=== PATIENT | female | born 1945 | race Caucasian/White ===

== ENCOUNTER 2016-06-24 09:33 | Emergency (ER) | payer MEDICARE ==
[2016-06-24] MEDS ORDERED: Ibuprofen 600 MG Tab PO ONE (10:05)
--- NOTE | 2016-06-24 10:05 | EDM.PDOC ---
ED HPI Trauma - General Chief Complaint: Lower Extremity Injury/Pain Stated Complaint: R. FOOT TOE PAIN & SHOULDER PAIN Time Seen by Provider: 06/24/16 09:33 Source: Reports: Patient, Family History Limitations: Reports: No limitations - History of Present Illness INITIAL COMMENTS - FREE TEXT/NARRATIVE: 70 y.o.w.sonu came to the ed after she fell over her dog and injured her r foot and r shoulder. No LOC, no other acute medical issues at this time. Symptom Onset Date: 06/24/16 Symptom Onset Time: 08:00 Occurred When: just prior to arrival Occurred Where: home Method of Injury: other (fell over her dog) Severity: mild Pain/Injury Location: Reports: upper extremity, right, lower extremity, right Consciousness: Reports: no loss of consciousness Associated Symptoms: Reports: denies other symptoms Allergies/ADRs: Allergies erythromycin base [Erythromycin Base] Allergy (Verified 06/24/16 09:52) Hives Penicillins Allergy (Verified 06/24/16 09:52) Hives Sulfa (Sulfonamide Antibiotics) Allergy (Verified 06/24/16 09:52) Hives Tetracyclines Allergy (Verified 06/24/16 09:52) Hives Home Medications: Ambulatory Orders Lisinopril [Prinivil] 40 mg PO DAILY 01/02/14 [Confirmed 06/24/16] Multivitamin [Multivitamins] 1 each PO DAILY 04/11/15 [Confirmed 06/24/16] Temazepam [Restoril] 30 mg PO BEDTIME 06/24/16 [Confirmed 06/24/16] traMADol [Ultram] 50 mg PO Q4H PRN #20 tab 06/24/16 Past Medical History HEENT History: Reports: Hard of hearing Cardiovascular History: Reports: Heart Failure, Hypertension Other Cardiovascular History: IRREGULAR HEART RYTHM Psychiatric History: Reports: Other (see below) Other Psychiatric History: INSOMIA - Past Surgical History HEENT Surgical History: Reports: Oral surgery GI Surgical History: Reports: Appendectomy, Bariatric procedure, Cholecystectomy Female Surgical History: Reports: Hysterectomy Musculoskeletal Surgical History: Reports: Other (see below) Other Musculoskeletal Surgeries/Procedures:: ROTATOR CUFF SX Social & Family History - Family History Family Medical History: Noncontributory - Tobacco Use Smoking Status *Q: Former Smoker Years of Tobacco use: 0 Used Tobacco, but Quit: No Second Hand Smoke Exposure: Yes - Alcohol Use Days Per Week of Alcohol Use: 0 - Recreational Drug Use Recreational Drug Use: No Review of Systems - Review of Systems Review Of Systems: See Below Constitutional: Reports: no symptoms Eyes: Reports: no symptoms Ears: Reports: no symptoms Nose: Reports: no symptoms Mouth/Throat: Reports: no symptoms Respiratory: Reports: No Symptoms Cardiovascular: Reports: no symptoms GI/Abdominal: Reports: No symptoms Genitourinary: Reports: no symptoms Musculoskeletal: Reports: foot pain Skin: Reports: no symptoms Neurological: Reports: No Symptoms Psychiatric: Reports: no symptoms Trauma Exam - Physical Exam Exam: See Below Exam Limited By: No limitations General Appearance: Reports: alert, WD/WN, mild distress Head: Reports: atraumatic, normocephalic Ears: Reports: normal external exam, normal canal Nose: Reports: normal inspection, normal mucousa Throat/Mouth: Reports: Normal inspection, Normal lips, Normal oropharynx Neck: Reports: non-tender, full range of motion, normal alignment, normal inspection Respiratory Exam: Reports: no respiratory distress, lungs clear, normal breath sounds, no accessory muscle use, chest non-tender Cardiovascular: Reports: normal peripheral pulses, regular rate, rhythm, no edema GI/Abdominal: Reports: normal bowel sounds, soft, non tender, no organomegaly (Female) Exam: Deferred Rectal (Female) Exam: Deferred Back: Reports: full range of motion Extremities: Reports: tenderness (r big toe with deformity and SQ hematoma) Neurologic: Reports: 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 No LOC, no other acute medical issues at this time. PE: swollwn left big toe with hematoma. R Shoulder FROM Imaging: Proximal phalangeal fx r big toe (chip fx). R Shoulder NAD Impression: R toes fx Tx: Ultarm, walking boot r foot Reexam: Improved Plan: D/C with instruction Last Recorded V/S: Last Vital Signs Temp 36.6 C 06/24/16 10:30 Pulse 76 06/24/16 10:30 Resp 16 06/24/16 10:30 BP 138/74 06/24/16 10:30 Pulse Ox 98 06/24/16 10:30 - Orders/Labs/Meds Orders: Active Orders 24 hr Category Date Time Status Foot Comp Min 3V Rt [CR] Stat Exams 06/24/16 09:48 Taken Shoulder Comp Rt [CR] Stat Exams 06/24/16 10:00 Taken Meds: Medications Discontinued Medications Generic Name Dose Route Start Last Admin Trade Name Freq PRN Reason Stop Dose Admin Ibuprofen 600 mg 06/24/16 10:05 06/24/16 10:15 Motrin PO 06/24/16 10:06 Not Given ONETIME ONE Tramadol HCl 100 mg 06/24/16 10:23 06/24/16 10:34 Ultram PO 06/24/16 10:24 100 mg ONETIME ONE Administration Departure - Departure Time of Disposition: 10:19 Disposition: Home, Self-Care 01 Condition: good Clinical Impression: Fracture of toe of right foot Qualifiers: Encounter type: initial encounter Toe: great toe Fracture type: closed Phalanx : proximal Fracture alignment: displaced Qualified Code(s): S92.411A - Displaced fracture of proximal phalanx of right great toe, initial encounter for closed fracture Shoulder pain, right Qualifiers: Chronicity: chronic Qualified Code(s): M25.511 - Pain in right shoulder Prescriptions: traMADol [Ultram] 50 mg PO Q4H PRN #20 tab PRN Reason: Pain Instructions: Toe Fracture, [id number] Referrals: Mir Johnson MD [Primary Care Provider] - Casa Reardon MD [Physician] - Forms: ED Department Discharge Additional Instructions: Please elevate r foot, please wear boot as recommended, please f/u with ortho in the next 3-4 days, Please come back to the ed if your symptoms get worse acutely. - My Orders Last 24 Hours: My Active Orders 06/24/16 09:48 Foot Comp Min 3V Rt [CR] Stat 06/24/16 10:00 Shoulder Comp Rt [CR] Stat - Assessment/Plan Last 24 Hours: My Active Orders 06/24/16 09:48 Foot Comp Min 3V Rt [CR] Stat 06/24/16 10:00 Shoulder Comp Rt [CR] Stat
[2016-06-24] MEDS ORDERED: traMADol 50 MG Tab PO ONE (10:23)
[2016-06-24 11:12] VITALS: BP 138/74
--- NOTE | 2016-06-25 09:53 | CR ---
INDICATION: Trauma first digit - first metatarsal area. Tripped over dog. RIGHT FOOT: Three views of the right foot were obtained and revealed severe diminished bone density suggesting severe osteoporosis or possibly osteomalacia - correlate clinically. There is an area of irregularity of the cortex of the proximal metaphysis of the proximal phalanx of the great toe medially which could represent an essentially undisplaced fracture site that is partial cortical. No other acute bone or joint abnormality was identified. Moderate sized plantar calcaneal spur is noted. IMPRESSION: 1. Possible partial cortical fracture base of the great toe medially. 2. Osteomalacia or osteoporosis - correlate clinically. 3. Heel spur. MTDD
--- NOTE | 2016-06-25 10:27 | CR ---
INDICATION: Trauma, tripped over dog. RIGHT SHOULDER: Three views of the right shoulder were obtained and revealed no evidence of an acute fracture or dislocation. There appears to be some sclerosis on the undersurface of the acromion, suggesting a mild degree of impingement. This should be correlated clinically. Mild degenerative changes are noted at the AC and glenohumeral joints. There may be some separation of the AC joint or possibly resorption of bone at the distal clavicle. This can be seen with old injuries. Osteonecrosis is a possibility post-traumatic. Diminished bone density is noted compatible with osteoporosis or osteomalacia - correlate clinically. IMPRESSION: 1. No definite acute fracture or dislocation. 2. 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 This is most likely on the basis of previous trauma with resorption of some of the bone of the distal clavicle. 3. Diminished bone density suggesting osteomalacia or osteoporosis - correlate clinically. 4. Mild osteoarthritis glenohumeral joint with the joint space fairly well preserved. MTDD
== END 2016-06-24 10:50 | disposition home or self-care (01) ==
LOC: FB.ED 09:33
DX: S92.411A Displaced fracture of proximal phalanx of right great toe, initial encounter for closed fracture (principal); W01.0XXA Fall on same level from slipping, tripping and stumbling without subsequent striking against object, initial encounter; Y92.9 Unspecified place or not applicable; M77.51 Other enthesopathy of right foot and ankle; M25.511 Pain in right shoulder; G89.29 Other chronic pain; I50.9 Heart failure, unspecified; I10 Essential (primary) hypertension; Z98.84 Bariatric surgery status; Z79.899 Other long term (current) drug therapy; Z88.1 Allergy status to other antibiotic agents; Z88.0 Allergy status to penicillin; Z88.2 Allergy status to sulfonamides; Z88.8 Allergy status to other drugs, medicaments and biological substances; Z87.891 Personal history of nicotine dependence
CPT/HCPCS: 29515; 73030; 73630; 99283; A9270

== ENCOUNTER 2016-07-23 09:50 | Inpatient (IN) | payer MEDICARE ==
[2016-07-23] MEDS: Acetaminophen/HYDROcodone 325-5 MG Tab PO PRN ×3 (14:03→22:30)
[2016-07-23] MEDS: Gabapentin 100 MG Cap PO SCH ×2 (14:03→21:20)
--- NOTE | 2016-07-23 17:48 | PCM.HP ---
H&P History of Present Illness - General Date of Service: 07/23/16 Admit Problem/Dx: Admission Diagnosis/Problem Admission Diagnosis/Problem Disorder of shoulder Source of Information: Patient History Limitations: Reports: No limitations - History of Present Illness Initial Comments - Free Text/Narative: This is a 70-year-old female patient became from [place] after having a total right shoulder replacement. She's having pain that is controlled by hydrocodone. She has no other concerns today. She's had 2 previous rotator cuff repair surgeries on the right shoulder. She has a scooter and is not able to manipulate the joystick because of the brace. So she came to do rehabilitation as having been here. She denies fevers, chills, shortness of breath, chest pain, leg swelling. She stated she had a good BM before she left the hospital in [place]. Right Upper Arm Pain Score (Numeric/FACES): 5 - Related Data Allergies/Adverse Reactions: Allergies Allergy/AdvReac Type Severity Reaction Status Date / Time erythromycin base Allergy Hives Verified 06/24/16 09:52 [Erythromycin Base] Penicillins Allergy Hives Verified 06/24/16 09:52 Sulfa (Sulfonamide Allergy Hives Verified 06/24/16 09:52 Antibiotics) Tetracyclines Allergy Hives Verified 06/24/16 09:52 Home Medications: Home Meds Temazepam [Restoril] 30 mg PO BEDTIME 06/24/16 [History] Acetaminophen/HYDROcodone [[place] 325-5 MG] 2 tab PO Q4H PRN 07/23/16 [History] Alendronate [Fosamax] 70 mg PO Q7D 07/23/16 [History] Aspirin [Ecotrin] 325 mg PO DAILY 07/23/16 [History] Gabapentin [Neurontin] 200 mg PO TID 07/23/16 [History] Hydrocodone/Acetaminophen [[place] 5-325] 1 tab PO Q4H PRN 07/23/16 [History] Lisinopril 20 mg PO DAILY 07/23/16 [History] Multivitamin [Daily Multiple Vitamin] 1 tab PO DAILY 07/23/16 [History] Sennosides/Docusate Sodium [Senna-S] 1 tab PO BID 07/23/16 [History] traMADol [Ultram] 50 mg PO Q6H PRN MDD 150MG 07/23/16 [History] Past Medical History HEENT History: Reports: Hard of hearing, Impaired vision Cardiovascular History: Reports: Heart Failure, Hypertension Other Cardiovascular History: IRREGULAR HEART RYTHM 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: Neurological History: Reports: Neuropathy, peripheral Psychiatric History: Reports: Other (see below) Other Psychiatric History: INSOMIA Endocrine/Metabolic History: Reports: Obesity/BMI 30+, Osteoporosis - Infectious Disease History Infectious Disease History: Reports: Chicken pox - Past Surgical History Head Surgeries/Procedures: Reports: None HEENT Surgical History: Reports: Oral surgery GI Surgical History: Reports: Appendectomy, Bariatric procedure, Cholecystectomy Female Surgical History: Reports: Hysterectomy Endocrine Surgical History: Reports: None Neurological Surgical History: Reports: None Musculoskeletal Surgical History: Reports: Other (see below) Other Musculoskeletal Surgeries/Procedures:: ROTATOR CUFF SX Social & Family History - Family History Family Medical History: Noncontributory - Tobacco Use Smoking Status *Q: Never Smoker Years of Tobacco use: 0 Used Tobacco, but Quit: No Second Hand Smoke Exposure: No - Caffeine Use Caffeine Use: Reports: None - Alcohol Use Days Per Week of Alcohol Use: 0 - Recreational Drug Use Recreational Drug Use: No H&P Review of Systems - Review of Systems: Review Of Systems: See Below General: Reports: no symptoms, weight gain HEENT: Reports: no symptoms Pulmonary: Reports: No Symptoms Cardiovascular: Reports: no symptoms Gastrointestinal: Reports: No symptoms Genitourinary: Reports: no symptoms Musculoskeletal: Reports: other (See history of present illness) Psychiatric: Reports: no symptoms Neurological: Reports: No Symptoms Hematologic/Lymphatic: Reports: no symptoms Immunologic: Reports: no symptoms Exam - Exam Exam: See Below - Vital Signs Vital Signs: Last Vital Signs Temp 98.3 F 07/23/16 12:09 Pulse 53 L 07/23/16 12:09 Resp 16 07/23/16 12:09 BP 105/48 L 07/23/16 12:09 Pulse Ox 95 07/23/16 12:10 Weight: 225 lb - Exam General: alert, oriented, cooperative HEENT: PERRLA, EACs clear, EOMI, Hearing intact, Mucosa moist & pink, Posterior pharynx clear, TMs clear Neck: supple, trachea midline. No: carotid bruit Lungs: Clear to auscultation, Normal respiratory effort. No: Crackles, Rales, Rhonchi Cardiovascular: regular rate, regular rhythm, systolic murmur Abdomen: soft. No: guarding, rigidity, rebound, tenderness Back Exam: normal inspection Extremities: other (Right arm is in a sling.) Skin: warm, dry, intact, incision (Excision right shoulder without erythema or drainage.) Neuro Extensive - Mental Status: alert, oriented x3, normal mood/affect, normal cognition Psychiatric: alert, normal affect, normal mood *Q Meaningful Use (ADM) - VTE *Q VTE Criteria *Q: - Stroke *Q Stroke Criteria *Q: - AMI *Q AMI Criteria *Q: - Problem List (1) Status post reverse arthroplasty of right shoulder SNOMED Code(s): 665991230, [id number] ICD Code: Z96.611 - PRESENCE OF RIGHT ARTIFICIAL SHOULDER JOINT Status: Acute Current Visit: Yes Problem List Initiated/Reviewed/Updated: Yes Orders Last 24hrs: Active Orders 24 hr Category Date Time Status Patient Status [ADT] Routine ADT 07/23/16 12:11 Active May Shower [RC] ASDIRECTED Care 07/23/16 12:11 Active Oxygen Therapy [RC] PRN Care 07/23/16 12:10 Active Up With Assistance [RC] ASDIRECTED Care 07/23/16 12:11 Active Vital Signs [RC] DAILY Care 07/23/16 12:10 Active Weight [Height and Weight] [RC] .qMon Care 07/23/16 15:13 Active Consult to Employee Relations Representative [CONS] Routine Cons 07/23/16 12:10 Active OT Evaluation and Treatment [CONS] Routine Cons 07/23/16 12:10 Active PT Evaluation and Treatment [CONS] Routine Cons 07/23/16 12:10 Active Regular Diet [DIET] Diet 07/23/16 Lunch Active Acetaminophen/HYDROcodone [[place] 325-5 MG] Med 07/23/16 13:51 Active 1 tab PO Q4H PRN Acetaminophen/HYDROcodone [[place] 325-5 MG] Med 07/23/16 13:51 Active 2 tab PO Q4H PRN Alendronate [Fosamax] Med 07/24/16 06:00 Active 70 mg PO Q7D Aspirin [Ecotrin] Med 07/24/16 09:00 Active 325 mg PO DAILY Docusate Sodium/Sennosides [Senna Plus] Med 07/23/16 21:00 Active 1 tab PO BID Gabapentin [Neurontin] Med 07/23/16 14:00 Active 200 mg PO TID Lisinopril [Prinivil] Med 07/24/16 09:00 Active 20 mg PO DAILY Multivitamins [Tab-A-Ursula] Med 07/24/16 09:00 Active 1 tab PO DAILY Temazepam [Restoril] Med 07/23/16 21:00 Active 30 mg PO BEDTIME traMADol [Ultram] Med 07/23/16 13:51 Active 50 mg PO Q6H PRN Ice Therapy [OM.PC] Routine Oth 07/23/16 12:11 Ordered Resuscitation Status Routine Resus Stat 07/23/16 12:10 Ordered Medication Orders Hydrocodone Bitart/Acetaminophen ([place] 325-5 Mg) 2 tab PO Q4H PRN PRN Reason: PAIN >5/10 Last Admin: 07/23/16 14:03 Dose: 2 tab Hydrocodone Bitart/Acetaminophen ([place] 325-5 Mg) 1 tab PO Q4H PRN PRN Reason: PAIN 3-5/10 Alendronate Sodium (Fosamax) 70 mg PO Q7D [facility] Aspirin (Ecotrin) 325 mg PO DAILY ED Gabapentin (Neurontin) 200 mg PO TID [facility] Last Admin: 07/23/16 14:03 Dose: 200 mg Lisinopril (Prinivil) 20 mg PO DAILY [facility] Multivitamins/Minerals/Vitamin C (Tab-A-Ursula) 1 tab PO DAILY ED Senna/Docusate Sodium (Senna Plus) 1 tab PO BID ED Temazepam (Restoril) 30 mg PO BEDTIME ED Tramadol HCl (Ultram) 50 mg PO Q6H PRN PRN Reason: Pain Assessment/Plan Comment:: 1. Admit to swing bed for PT/OT. 2. Regular diet without IV fluids. 3. Hydrocodone or Tylenol for pain. 4. Continue her home medications.
[2016-07-23] MEDS: Temazepam 15 MG Cap PO SCH (21:20)
[2016-07-24] MEDS: Acetaminophen/HYDROcodone 325-5 MG Tab PO PRN ×5 (02:39→20:39)
[2016-07-24] MEDS ORDERED: Alendronate 70 MG Tab PO SCH (06:00)
[2016-07-24] MEDS: Gabapentin 100 MG Cap PO SCH ×3 (09:31→20:38)
[2016-07-24] MEDS: Aspirin 325 MG Tab.EC PO SCH (09:31)
[2016-07-24] MEDS: Multivitamin Tab PO SCH (09:31)
[2016-07-24] MEDS: Lisinopril 20 MG Tab PO SCH (09:31)
[2016-07-24] MEDS: Temazepam 15 MG Cap PO SCH (22:21)
[2016-07-25] MEDS: Acetaminophen/HYDROcodone 325-5 MG Tab PO PRN ×6 (01:44→22:55)
[2016-07-25] MEDS: Gabapentin 100 MG Cap PO SCH ×3 (08:16→20:29)
[2016-07-25] MEDS: Aspirin 325 MG Tab.EC PO SCH (08:16)
[2016-07-25] MEDS: Lisinopril 20 MG Tab PO SCH (08:16)
[2016-07-25] MEDS: Multivitamin Tab PO SCH (08:17)
--- NOTE | 2016-07-25 08:40 | PCM.PN ---
- General Info Date of Service: 07/25/16 Admission Dx/Problem (Free Text): Patient states she continues to have right shoulder pain. Pain meds are helping. She has no other concerns today. She denies any fevers or chills, chest pain or shortness of breath. - Patient Data Vitals - most recent: Last Vital Signs Temp 98.6 F 07/24/16 08:00 Pulse 60 07/24/16 08:00 Resp 16 07/24/16 08:00 BP 115/57 L 07/25/16 08:16 Pulse Ox 98 07/24/16 08:00 Weight - most recent: 225 lb I&O - last 24 hours: Intake & Output 07/24/16 07/25/16 07/25/16 22:59 06:59 14:59 Intake Total 200 Balance 200 Med Orders - Current: Current Medications Hydrocodone Bitart/Acetaminophen ([place] 325-5 Mg) 2 tab PO Q4H PRN PRN Reason: PAIN >5/10 Last Admin: 07/25/16 05:48 Dose: 2 tab Hydrocodone Bitart/Acetaminophen ([place] 325-5 Mg) 1 tab PO Q4H PRN PRN Reason: PAIN 3-5/10 Alendronate Sodium (Fosamax) 70 mg PO Q7D [facility] Last Admin: 07/24/16 06:22 Dose: 70 mg Aspirin (Ecotrin) 325 mg PO DAILY [facility] Last Admin: 07/25/16 08:16 Dose: 325 mg Gabapentin (Neurontin) 200 mg PO TID [facility] Last Admin: 07/25/16 08:16 Dose: 200 mg Lisinopril (Prinivil) 20 mg PO DAILY [facility] Last Admin: 07/25/16 08:16 Dose: 20 mg Multivitamins/Minerals/Vitamin C (Tab-A-Ursula) 1 tab PO DAILY [facility] Last Admin: 07/25/16 08:17 Dose: 1 tab Senna/Docusate Sodium (Senna Plus) 1 tab PO BID [facility] Last Admin: 07/25/16 08:16 Dose: 1 tab Temazepam (Restoril) 30 mg PO BEDTIME [facility] Last Admin: 07/24/16 22:21 Dose: 30 mg Tramadol HCl (Ultram) 50 mg PO Q6H PRN PRN Reason: Pain - Exam General: alert, oriented, cooperative Lungs: Clear to auscultation, Normal respiratory effort Cardiovascular: Regular Rate, Regular Rhythm, No Murmurs Extremities: other (Right arm in a sling.) - Problem List & Annotations (1) Status post reverse arthroplasty of right shoulder SNOMED Code(s): 040392063, 400649602 Code(s): Z96.611 - PRESENCE OF RIGHT ARTIFICIAL SHOULDER JOINT Status: Acute Current Visit: Yes - Problem List Review Problem List Initiated/Reviewed/Updated: Yes - My Orders Last 24 Hours: My Active Orders 07/24/16 09:00 Aspirin [Ecotrin] 325 mg PO DAILY Lisinopril [Prinivil] 20 mg PO DAILY Multivitamins [Tab-A-Ursula] 1 tab PO DAILY - Plan Plan:: 1. PT/OT and continue current care with a controlled hydrocodone.
[2016-07-25] MEDS: Temazepam 15 MG Cap PO SCH (20:28)
[2016-07-26] MEDS: Acetaminophen/HYDROcodone 325-5 MG Tab PO PRN ×5 (03:29→20:33)
[2016-07-26] MEDS: Aspirin 325 MG Tab.EC PO SCH (08:56)
[2016-07-26] MEDS: Lisinopril 20 MG Tab PO SCH (08:57)
[2016-07-26] MEDS: Gabapentin 100 MG Cap PO SCH ×3 (08:57→20:35)
[2016-07-26] MEDS: Multivitamin Tab PO SCH (08:57)
[2016-07-26] MEDS: Temazepam 15 MG Cap PO SCH (22:42)
[2016-07-27] MEDS: Acetaminophen/HYDROcodone 325-5 MG Tab PO PRN ×5 (03:05→20:26)
[2016-07-27] MEDS: Gabapentin 100 MG Cap PO SCH ×3 (08:08→20:29)
[2016-07-27] MEDS: Multivitamin Tab PO SCH (08:08)
[2016-07-27] MEDS: Lisinopril 20 MG Tab PO SCH (08:08)
[2016-07-27] MEDS: Aspirin 325 MG Tab.EC PO SCH (08:08)
[2016-07-27] MEDS: Temazepam 15 MG Cap PO SCH (21:57)
[2016-07-27] MEDS: traMADol 50 MG Tab PO PRN (21:57)
[2016-07-28] MEDS: Acetaminophen/HYDROcodone 325-5 MG Tab PO PRN ×5 (00:30→20:57)
[2016-07-28] MEDS: traMADol 50 MG Tab PO PRN ×2 (07:43→17:30)
[2016-07-28] MEDS: Lisinopril 20 MG Tab PO SCH (08:48)
[2016-07-28] MEDS: Aspirin 325 MG Tab.EC PO SCH (08:48)
[2016-07-28] MEDS: Gabapentin 100 MG Cap PO SCH ×3 (08:48→20:54)
[2016-07-28] MEDS: Multivitamin Tab PO SCH (08:49)
[2016-07-28] MEDS: Temazepam 15 MG Cap PO SCH (22:07)
[2016-07-29] MEDS: traMADol 50 MG Tab PO PRN ×3 (00:20→13:37)
[2016-07-29] MEDS: Acetaminophen/HYDROcodone 325-5 MG Tab PO PRN ×4 (02:36→21:33)
[2016-07-29] MEDS: Gabapentin 100 MG Cap PO SCH ×3 (08:59→21:34)
[2016-07-29] MEDS: Multivitamin Tab PO SCH (08:59)
[2016-07-29] MEDS: Aspirin 325 MG Tab.EC PO SCH (09:00)
[2016-07-29] MEDS: Lisinopril 20 MG Tab PO SCH (09:00)
--- NOTE | 2016-07-29 09:19 | PCM.PN ---
- General Info Date of Service: 07/29/16 Admission Dx/Problem (Free Text): Patient's issues of pain in her right shoulder. She's tolerating the hydrocodone once a day. She states she's had diarrhea ever since she's been here. She states she was at least given one dose of clindamycin in the hospital. She only has the diarrhea when she eats. No blood. No nausea, vomiting or fevers. No abdominal pain - Patient Data Vitals - most recent: Last Vital Signs Temp 97.1 F 07/29/16 08:00 Pulse 61 07/29/16 08:00 Resp 18 07/29/16 08:00 BP 129/72 07/29/16 09:00 Pulse Ox 97 07/29/16 08:00 Weight - most recent: 235 lb 6.4 oz Med Orders - Current: Current Medications Hydrocodone Bitart/Acetaminophen ([place] 325-5 Mg) 1 tab PO Q4H PRN PRN Reason: PAIN Last Admin: 07/29/16 09:10 Dose: 1 tab Alendronate Sodium (Fosamax) 70 mg PO Q7D [facility] Last Admin: 07/24/16 06:22 Dose: 70 mg Aspirin (Ecotrin) 325 mg PO DAILY [facility] Last Admin: 07/29/16 09:00 Dose: 325 mg Gabapentin (Neurontin) 200 mg PO TID [facility] Last Admin: 07/29/16 08:59 Dose: 200 mg Lisinopril (Prinivil) 20 mg PO DAILY [facility] Last Admin: 07/29/16 09:00 Dose: 20 mg Multivitamins/Minerals/Vitamin C (Tab-A-Ursula) 1 tab PO DAILY [facility] Last Admin: 07/29/16 08:59 Dose: 1 tab Temazepam (Restoril) 30 mg PO BEDTIME [facility] Last Admin: 07/28/16 22:07 Dose: 30 mg Tramadol HCl (Ultram) 50 mg PO Q6H PRN PRN Reason: Pain Last Admin: 07/29/16 06:31 Dose: 50 mg Discontinued Medications Hydrocodone Bitart/Acetaminophen ([place] 325-5 Mg) 2 tab PO Q4H PRN PRN Reason: PAIN >5/10 Last Admin: 07/28/16 09:45 Dose: 2 tab Senna/Docusate Sodium (Senna Plus) 1 tab PO BID [facility] Last Admin: 07/25/16 22:58 Dose: Not Given - Exam General: alert, cooperative Neck: supple Lungs: Clear to auscultation, Normal respiratory effort Cardiovascular: Regular Rate, Regular Rhythm, No Murmurs Abdomen: bowel sounds present, soft, no tenderness, no distension Wound/Incisions: healing well - Problem List & Annotations (1) Status post reverse arthroplasty of right shoulder SNOMED Code(s): 823001236, [id number] Code(s): Z96.611 - PRESENCE OF RIGHT ARTIFICIAL SHOULDER JOINT Status: Acute Current Visit: Yes (2) Diarrhea SNOMED Code(s): 38364082 Code(s): R19.7 - DIARRHEA, UNSPECIFIED Status: Acute Current Visit: Yes - Problem List Review Problem List Initiated/Reviewed/Updated: Yes - Plan Plan:: 1. discharge tomorrow on outpatient occupational therapy with a buffet attendant. 2. C. difficile.
--- NOTE | 2016-07-29 09:27 | PCM.DCSUM1 ---
Discharge Summary - Hospital Course Free Text/Narrative:: Hospital course-patient was brought to [facility] for rehabilitation. Her right arm is in a sling and she worked with occupational therapy. She initially was on 2-5/325 hydrocodone every 4 hours. We decreased her 1 every 4 hours. Her pain was tolerable. She had diarrheal issues here and a C. difficile was checked but is pending. She states she had at least one dose of clindamycin in [place]. She'll be discharged and follow up with orthopedic PA in 1 week in the orthopedic surgeon in one month. She will go home with a dishroom attendant from [facility]. Brief History: This is a 70-year-old female patient became from [place] after having a total right shoulder replacement. She's having pain that is controlled by hydrocodone. She has no other concerns today. She's had 2 previous rotator cuff repair surgeries on the right shoulder. She has a scooter and is not able to manipulate the joystick because of the brace. So she came to do rehabilitation as having been here. She denies fevers, chills, shortness of breath, chest pain, leg swelling. She stated she had a good BM before she left the hospital in [place]. - Discharge Data Discharge Date: 07/30/16 Discharge Disposition: Home, [facility] 06 Condition: Good - Discharge Diagnosis/Problem(s) (1) Status post reverse arthroplasty of right shoulder SNOMED Code(s): 939463661, [id number] ICD Code: Z96.611 - PRESENCE OF RIGHT ARTIFICIAL SHOULDER JOINT Status: Acute Current Visit: Yes (2) Diarrhea SNOMED Code(s): 70648003 ICD Code: R19.7 - DIARRHEA, UNSPECIFIED Status: Acute Current Visit: Yes - Patient Summary/Data Consults: Consultations 07/23/16 12:10 Consult to Obstetrics Gyn Physician [CONS] Routine Comment: Physician Instructions: Reason for Consult: discharge planning OT Evaluation and Treatment [CONS] Routine Please Evaluate and Treat. OT Reason for Consult: Strengthening This query below is only for informational purposes and is not editable. PT Evaluation and Treatment [CONS] Routine Please Evaluate and Treat. PT Reason for Consult: Strengthening This query below is only for informational purposes and is not editable. - Patient Instructions Diet: Regular Diet as Tolerated Activity: As Tolerated Driving: Do Not Drive Showering/Bathing: July Shower Notify Provider of: Fever, Increased Pain, Swelling and Redness, Nausea and/or Vomiting Other/Special Instructions: 1. recheck orthopedics in one week and in August. 2. Outpatient occupational therapy. 3. Home health dishroom attendant. For homemaking and bathing. Patient is in the right arm sling and also uses her wheelchair. She needs this assistance to get her some clean and to get her house clean because she's unable to do it at this time. - Discharge Plan Home Medications: Home Meds Temazepam [Restoril] 30 mg PO BEDTIME 06/24/16 [History] Alendronate [Fosamax] 70 mg PO Q7D 07/23/16 [History] Aspirin [Ecotrin] 325 mg PO DAILY 07/23/16 [History] Gabapentin [Neurontin] 200 mg PO TID 07/23/16 [History] Hydrocodone/Acetaminophen [Prentice 5-325] 1 tab PO Q4H PRN 07/23/16 [History] Lisinopril 20 mg PO DAILY 07/23/16 [History] Multivitamin [Daily Multiple Vitamin] 1 tab PO DAILY 07/23/16 [History] Sennosides/Docusate Sodium [Senna-S] 1 tab PO BID 07/23/16 [History] - Discharge Summary/Plan Comment DC Time >30 min.: Yes - Patient Data Vitals - Most Recent: Last Vital Signs Temp 97.1 F 07/29/16 08:00 Pulse 61 07/29/16 08:00 Resp 18 07/29/16 08:00 BP 129/72 07/29/16 09:00 Pulse Ox 97 07/29/16 08:00 Weight - Most Recent: 235 lb 6.4 oz Med Orders - Current: Current Medications Hydrocodone Bitart/Acetaminophen (Prentice 325-5 Mg) 1 tab PO Q4H PRN PRN Reason: PAIN Last Admin: 07/29/16 09:10 Dose: 1 tab Alendronate Sodium (Fosamax) 70 mg PO Q7D [facility] Last Admin: 07/24/16 06:22 Dose: 70 mg Aspirin (Ecotrin) 325 mg PO DAILY [facility] Last Admin: 07/29/16 09:00 Dose: 325 mg Gabapentin (Neurontin) 200 mg PO TID [facility] Last Admin: 07/29/16 08:59 Dose: 200 mg Lisinopril (Prinivil) 20 mg PO DAILY [facility] Last Admin: 07/29/16 09:00 Dose: 20 mg Multivitamins/Minerals/Vitamin C (Tab-A-Ursula) 1 tab PO DAILY [facility] Last Admin: 07/29/16 08:59 Dose: 1 tab Temazepam (Restoril) 30 mg PO BEDTIME [facility] Last Admin: 07/28/16 22:07 Dose: 30 mg Tramadol HCl (Ultram) 50 mg PO Q6H PRN PRN Reason: Pain Last Admin: 07/29/16 06:31 Dose: 50 mg Discontinued Medications Hydrocodone Bitart/Acetaminophen (Prentice 325-5 Mg) 2 tab PO Q4H PRN PRN Reason: PAIN >5/10 Last Admin: 07/28/16 09:45 Dose: 2 tab Senna/Docusate Sodium (Senna Plus) 1 tab PO BID [facility] Last Admin: 07/25/16 22:58 Dose: Not Given *Q Meaningful Use (DIS) - VTE *Q VTE Criteria *Q: - Stroke *Q Stroke Criteria *Q: - AMI *Q AMI Criteria *Q:
[2016-07-29] MEDS: Temazepam 15 MG Cap PO SCH (22:50)
[2016-07-30] MEDS: Acetaminophen/HYDROcodone 325-5 MG Tab PO PRN ×2 (02:32→06:53)
[2016-07-30] MEDS: Multivitamin Tab PO SCH (09:29)
[2016-07-30] MEDS: Gabapentin 100 MG Cap PO SCH (09:29)
[2016-07-30] MEDS: traMADol 50 MG Tab PO PRN (09:29)
[2016-07-30] MEDS: Aspirin 325 MG Tab.EC PO SCH (09:29)
[2016-07-30] MEDS: Lisinopril 20 MG Tab PO SCH (09:30)
[2016-07-30 10:17] VITALS: BP 142/66
== END 2016-07-30 09:45 | disposition home health service (06) | DRG 561 ==
LOC: FB.MS 11:26
PROVIDERS: ADMIT Family Medicine; ATTEND Family Medicine
DX: Z47.1 Aftercare following joint replacement surgery (principal); Z96.611 Presence of right artificial shoulder joint; R19.7 Diarrhea, unspecified; I11.0 Hypertensive heart disease with heart failure; I50.9 Heart failure, unspecified; G62.9 Polyneuropathy, unspecified; G47.00 Insomnia, unspecified; E66.9 Obesity, unspecified; Z68.30 Body mass index [BMI] 30.0-30.9, adult; M81.0 Age-related osteoporosis without current pathological fracture; Z79.82 Long term (current) use of aspirin; Z79.899 Other long term (current) drug therapy; Z88.0 Allergy status to penicillin; Z88.1 Allergy status to other antibiotic agents; Z88.2 Allergy status to sulfonamides
CPT/HCPCS: 87324; 97110-GO; 97165-GO; 97530-GO-KX; 97535-GO; A9270-GY

== ENCOUNTER 2016-08-16 10:12 | Emergency (ER) | payer MEDICARE ==
--- NOTE | 2016-08-16 13:10 | EDM.PDOC ---
ED HPI GENERAL MEDICAL PROBLEM - General Chief Complaint: Upper Extremity Injury/Pain Stated Complaint: SHOULDER PAIN HAD SURGERY 3 WEEKS AGO Time Seen by Provider: 08/16/16 11:17 Source of Information: Reports: Patient History Limitations: Reports: No Limitations - History of Present Illness INITIAL COMMENTS - FREE TEXT/NARRATIVE: 70 years old w f came to the ed because she felt a "pop" at her r shoulder today , S/P arthroplasty. No direct trauma. Pt has limited ROM r shoulder, denies any other acute medical issues. Onset: Today, Sudden Onset Date: 08/16/16 Onset Time: 07:00 Duration: Hour(s):, Intermittent Location: Reports: Upper Extremity, Left Quality: Reports: Dull Severity: Mild Improves with: Reports: Cold Therapy, Immobilization Worsens with: Reports: Movement Associated Symptoms: Reports: No Other Symptoms Right Shoulder Pain Score (Numeric/FACES): 8 - Related Data Allergies Allergy/AdvReac Type Severity Reaction Status Date / Time erythromycin base Allergy Hives Verified 08/16/16 11:12 [Erythromycin Base] Penicillins Allergy Hives Verified 08/16/16 11:12 Sulfa (Sulfonamide Allergy Hives Verified 08/16/16 11:12 Antibiotics) Tetracyclines Allergy Hives Verified 08/16/16 11:12 Home Meds: Home Meds Temazepam [Restoril] 30 mg PO BEDTIME 08/16/16 [History] traMADol [Ultram] 50 mg PO Q6H PRN #20 tab 08/16/16 [Rx] Past Medical History HEENT History: Reports: Hard of Hearing, Impaired Vision Cardiovascular History: Reports: Heart Failure, Hypertension 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: Neurological History: Reports: Neuropathy, Peripheral Psychiatric History: Reports: Other (See Below) Other Psychiatric History: INSOMIA Endocrine/Metabolic History: Reports: Obesity/BMI 30+, Osteoporosis - Infectious Disease History Infectious Disease History: Reports: Measles - Past Surgical History Head Surgeries/Procedures: Reports: None HEENT Surgical History: Reports: Cataract Surgery, Oral Surgery GI Surgical History: Reports: Appendectomy, Bariatric Procedure, Cholecystectomy Female Surgical History: Reports: Hysterectomy Endocrine Surgical History: Reports: None Musculoskeletal Surgical History: Reports: Shoulder Replacement, Other (See Below) Other Musculoskeletal Surgeries/Procedures:: rt rotator cuff in past Social & Family History - Family History Family Medical History: Noncontributory - Tobacco Use Smoking Status *Q: Never Smoker Years of Tobacco use: 0 Used Tobacco, but Quit: No Second Hand Smoke Exposure: No - Caffeine Use Caffeine Use: Reports: None - Alcohol Use Days Per Week of Alcohol Use: 0 - Recreational Drug Use Recreational Drug Use: No Review of Systems - Review of Systems Review Of Systems: See Below Constitutional: Reports: No Symptoms Eyes: Reports: No Symptoms Ears: Reports: No Symptoms Nose: Reports: No Symptoms Mouth/Throat: Reports: No Symptoms Respiratory: Reports: No Symptoms Cardiovascular: Reports: No Symptoms GI/Abdominal: Reports: No Symptoms Genitourinary: Reports: No Symptoms Musculoskeletal: Reports: Shoulder Pain Skin: Reports: No Symptoms Neurological: Reports: No Symptoms Psychiatric: Reports: No Symptoms Trauma Exam - Physical Exam Exam: See Below Exam Limited By: Physical Impairment General Appearance: Reports: Alert, WD/WN, Mild Distress, Obese Head: Reports: Atraumatic, Normocephalic Eyes: Bilateral Eye: Normal Inspection Ears: Reports: Normal External Exam Nose: Reports: Normal Inspection, Normal Mucousa, No Blood Throat/Mouth: Reports: Normal Inspection, Normal Lips Neck: Reports: Non-Tender, Full Range of Motion, Normal Alignment Respiratory Exam: Reports: No Respiratory Distress, Lungs Clear, Normal Breath Sounds Cardiovascular: Reports: Normal Peripheral Pulses, Regular Rate, Rhythm GI/Abdominal: Reports: Normal Bowel Sounds, Soft, Non-Tender, No Organomegaly (Female) Exam: Deferred Rectal (Female) Exam: Deferred Back: Reports: Full Range of Motion Extremities: Tenderness (r ant shoulder) 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 No direct trauma. Pt has limited ROM r shoulder, denies any other acute medical issues. PE: Minor r shoulder discomfort with movement Imaing: R shoulder reverse arthoplasty, No complication. Impession: R shoulder reverse arthoplasty, No complication Tx: Ultram, ICE Reexam: Improved Plan: D/C with instructions Last Recorded V/S: Last Vital Signs Temp 36.8 C 08/16/16 11:17 Pulse 77 08/16/16 11:17 Resp 20 08/16/16 11:17 BP 152/78 H 08/16/16 11:17 Pulse Ox 98 08/16/16 11:17 - Orders/Labs/Meds Orders: Active Orders 24 hr Category Date Time Status Shoulder Comp Rt [CR] Stat Exams 08/16/16 11:44 Taken Departure - Departure Time of Disposition: 13:07 Disposition: Home, Self-Care 01 Condition: good Clinical Impression: Shoulder joint painful on movement Qualifiers: Laterality: right Qualified Code(s): M25.511 - Pain in right shoulder - Discharge Information Prescriptions: traMADol [Ultram] 50 mg PO Q6H PRN #20 tab PRN Reason: severe pain Referrals: Mir Johnson MD [Primary Care Provider] - Forms: ED Department Discharge Additional Instructions: Please apply ice to r shoulder ultram for sere pain, f/u, come back if symptoms get worse acutely. - My Orders Last 24 Hours: My Active Orders 08/16/16 11:44 Shoulder Comp Rt [CR] Stat - Assessment/Plan Last 24 Hours: My Active Orders 08/16/16 11:44 Shoulder Comp Rt [CR] Stat
[2016-08-16 13:26] VITALS: BP 150/78
[2016-08-16] MEDS ORDERED: traMADol 50 MG Tab PO ONE (13:36)
== END 2016-08-16 13:24 | disposition home or self-care (01) ==
LOC: FB.ED 10:12
DX: M25.511 Pain in right shoulder (principal); I11.0 Hypertensive heart disease with heart failure; I50.9 Heart failure, unspecified; E66.9 Obesity, unspecified; Z88.2 Allergy status to sulfonamides; Z88.8 Allergy status to other drugs, medicaments and biological substances; Z90.49 Acquired absence of other specified parts of digestive tract; Z98.890 Other specified postprocedural states; Z98.49 Cataract extraction status, unspecified eye; Z98.84 Bariatric surgery status; Z88.1 Allergy status to other antibiotic agents
CPT/HCPCS: 73030-RT; 99283; A9270-GY

== ENCOUNTER 2016-09-05 16:34 | Emergency (ER) | payer MEDICARE ==
[2016-09-05 17:02] VITALS: BP 156/89
--- NOTE | 2016-09-05 17:10 | EDM.PDOC ---
[id number] Complaint: RIGHT SHOULDER PAIN FINGERS NUMB Time Seen by Provider: 09/05/16 17:05 Source of Information: Reports: Patient History Limitations: Reports: No Limitations - History of Present Illness INITIAL COMMENTS - FREE TEXT/NARRATIVE: 70 yo F who presents to the ER with right shoulder pain. She recently underwent Right Total shoulder replacement 6 weeks ago and currently undergoing physical therapy. She currently takes Hydrocodone and currently has 1 tablet left. Today while she was walking her dog, she suddenly picked her 8 pound dog when another dog came to attack her dod. Patient suddenly developed increasing pain on the right shoulder with some finger numbness and decided to come to the ER for further evaluation Onset: Today Location: Reports: Upper Extremity, Right Quality: Reports: Sharp Improves with: Reports: None Worsens with: Reports: Movement Associated Symptoms: Reports: No Other Symptoms Right Shoulder Pain Score (Numeric/FACES): 8 - Related Data Allergies Allergy/AdvReac Type Severity Reaction Status Date / Time erythromycin base Allergy Hives Verified 09/05/16 16:51 [Erythromycin Base] Penicillins Allergy Hives Verified 09/05/16 16:51 Sulfa (Sulfonamide Allergy Hives Verified 09/05/16 16:51 Antibiotics) Tetracyclines Allergy Hives Verified 09/05/16 16:51 Home Meds: Home Meds Temazepam [Restoril] 30 mg PO BEDTIME 08/16/16 [History] Hydrocodone/Acetaminophen [Hydrocodon-Acetaminophen 5-325] 1 tab PO QID PRN [History] Hydrocodone/Acetaminophen [Patterson 5-325 Tablet] 1 each PO .Q6H #20 tablet [Rx] Past Medical History HEENT History: Reports: Hard of Hearing, Impaired Vision Cardiovascular History: Reports: Heart Failure, Hypertension 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 Cardiovascular History: 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: Neurological History: Reports: Neuropathy, Peripheral Psychiatric History: Reports: Other (See Below) Other Psychiatric History: INSOMIA Endocrine/Metabolic History: Reports: Obesity/BMI 30+, Osteoporosis - Infectious Disease History Infectious Disease History: Reports: Measles - Past Surgical History Head Surgeries/Procedures: Reports: None HEENT Surgical History: Reports: Cataract Surgery, Oral Surgery GI Surgical History: Reports: Appendectomy, Bariatric Procedure, Cholecystectomy Female Surgical History: Reports: Hysterectomy Endocrine Surgical History: Reports: None Musculoskeletal Surgical History: Reports: Shoulder Replacement, Other (See Below) Other Musculoskeletal Surgeries/Procedures:: rt rotator cuff in past Social & Family History - Family History Family Medical History: Noncontributory - Tobacco Use Smoking Status *Q: Never Smoker Years of Tobacco use: 0 Used Tobacco, but Quit: No Second Hand Smoke Exposure: No - Caffeine Use Caffeine Use: Reports: None - Alcohol Use Days Per Week of Alcohol Use: 0 - Recreational Drug Use Recreational Drug Use: No Review of Systems - Review of Systems Review Of Systems: ROS reveals no pertinent complaints other than HPI. ED EXAM, GENERAL - Physical Exam Exam: See Below Exam Limited By: No Limitations General Appearance: Alert, WD/WN, No Apparent Distress Eye Exam: Bilateral Eye: EOMI Ears: Normal External Exam, Normal Canal, Hearing Grossly Normal, Normal TMs Nose: Normal Inspection, Normal Mucosa Throat/Mouth: Normal Inspection, Normal Lips, Normal Teeth, Normal Gums, Normal Oropharynx Head: Atraumatic, Normocephalic Neck: Normal Inspection, Supple, Non-Tender Respiratory/Chest: No Respiratory Distress, Lungs Clear, Normal Breath Sounds, No Accessory Muscle Use Cardiovascular: Normal Peripheral Pulses, Regular Rate, Rhythm, No Edema, No JVD , No Murmur GI/Abdominal: Normal Bowel Sounds, Soft, Non-Tender, No Organomegaly, No Distention Back Exam: Normal Inspection, Full Range of Motion Extremities: Normal Inspection, Normal Range of Motion, Non-Tender, Other ( Right Shoulder -- tender, decreased ROM right shoulder) Neurological: Alert, Oriented, CN II-XII Intact, Normal Cognition Psychiatric: Normal Affect, Normal Mood Skin Exam: Warm, Dry, Intact, Normal Color Course - Vital Signs Last Recorded V/S: Last Vital Signs Temp 36.9 C 09/05/16 16:54 Pulse 73 09/05/16 16:54 Resp 16 09/05/16 16:54 BP 156/89 H 09/05/16 16:54 Pulse Ox 98 09/05/16 16:54 - Orders/Labs/Meds Orders: Active Orders 24 hr Category Date Time Status Shoulder 1V Rt [CR] Stat Exams 09/05/16 17:04 Ordered Departure - Departure Time of Disposition: 18:39 Disposition: Home, Self-Care 01 Condition: Good Clinical Impression: Sprain of shoulder Qualifiers: Encounter type: initial encounter Shoulder sprain type: other part of shoulder region Laterality: right Qualified Code(s): S43.491A - Other sprain of right shoulder joint, initial encounter - Discharge Information Prescriptions: Hydrocodone/Acetaminophen [Patterson 5-325 Tablet] 1 each PO .Q6H #20 tablet Instructions: Shoulder Sprain Referrals: Mir Johnson MD [Primary Care Provider] - Forms: ED Department Discharge Additional Instructions: Follow with PCP Fide for pain Return if symptoms worsen Call your Physician or Return to Emergency Department if: * Your condition worsens in any way. * You develop fever greater than 100.4. * You have vomitting that does not stop with medications. * You have pain that is not controlled with medications. - My Orders Last 24 Hours: My Active Orders 09/05/16 17:04 Shoulder 1V Rt [CR] Stat - Assessment/Plan Last 24 Hours: My Active Orders 09/05/16 17:04 Shoulder 1V Rt [CR] Stat
[2016-09-05] MEDS ORDERED: Acetaminophen/HYDROcodone 325-5 MG Tab PO ONE (17:28)
--- NOTE | 2016-09-09 12:17 | CR ---
INDICATION: Shoulder pain. RIGHT SHOULDER, 3 VIEWS: FINDINGS: I am comparing to a recent study of 08/16/2016. As before, there is a reverse right should arthroplasty. This looks non- remarkable without fracture or dislocation or loosening. The adjacent right lung looks clear. IMPRESSION: Post surgical changes associated with the right shoulder. I do not see an acute change. MTDD
== END 2016-09-05 17:31 | disposition home or self-care (01) ==
LOC: FB.ED 16:34
DX: S43.491A Other sprain of right shoulder joint, initial encounter (principal); H54.7 Unspecified visual loss; I11.0 Hypertensive heart disease with heart failure; I50.9 Heart failure, unspecified; G62.9 Polyneuropathy, unspecified; E66.9 Obesity, unspecified; Z98.49 Cataract extraction status, unspecified eye; Z98.84 Bariatric surgery status; Z90.49 Acquired absence of other specified parts of digestive tract; Z98.890 Other specified postprocedural states; Z90.710 Acquired absence of both cervix and uterus; Z88.2 Allergy status to sulfonamides; Z88.0 Allergy status to penicillin; Z88.1 Allergy status to other antibiotic agents
CPT/HCPCS: 73030; 99283; A9270

== ENCOUNTER 2016-11-20 13:36 | Emergency (ER) | payer MEDICARE ==
[2016-11-20 15:42] VITALS: BP 133/65
--- NOTE | 2016-11-23 14:57 | ER ---
DATE SEEN: 11/20/2016 TIME SEEN: The patient was seen at 1350 hours. HISTORY OF PRESENT ILLNESS: This 70-year-old woman who fell when she got her leg caught in the corner part of her gown. She tripped and fell on her left side, and she has low back and left lateral flank discomfort and hip discomfort. She has 9/10 discomfort. She had pain on her left ankle, which she twisted. No trauma to upper extremity or right lower extremity pain or discomfort injury. PAST MEDICAL HISTORY: Significant for hypertension, lumbar low back pain, previous right foot fracture, arthroplasty right shoulder, degenerative disk disease of lumbar spine. Today, because she had discomfort of foot, she wore an orthopedic shoe. ALLERGIES: Erythromycin Base, penicillin, sulfa, tetracyclines. CURRENT MEDICATIONS: 1. Multivitamins. 2. Restoril. REVIEW OF SYSTEMS: Otherwise negative. PHYSICAL EXAMINATION: VITAL SIGNS: 150/81, repeated 133/65. Heart rate 81 and regular, respirations 18, oxygen saturation 95%, and temperature is 36.7 degrees centigrade. GENERAL: Is mildly overweight woman, 41.6 kg/m2 BMI. Note, she has left lower extremity discomfort. Otherwise, she is alert. HEENT: PERRLA intact. Pharynx without abnormality. NECK: Without thyromegaly or masses. No cervical adenopathy. LUNGS: Clear without rales, rhonchi, or wheezes. HEART: S1, S2. No irregular rate or rhythm. ABDOMEN: Soft. No guarding. No abdominal discomfort. EXTREMITIES: Mild left lateral hip discomfort. AP pelvis discomfort is negative. Motion in left lower extremity, has mild discomfort. She has moderate discomfort at the distal lateral malleolus of the calcaneofibular ligaments, and has less discomfort in the deltoid ligaments. Proximal fifth metatarsal nontender. The dorsum of the third and fourth metatarsals is tender. Mildly swollen. No ecchymosis noted. Range of motion of toes is normal. Axial pressure on the toes causes mild discomfort to the metatarsals. The patient is reluctant to walk now because of the pain. X-ray does not reveal a fracture of the tibia, fibula, or ankle, or the foot. DIAGNOSES: 1. Lower ankle sprain and strain, left calcaneofibular ligaments. 2. Contusion with sprain of the second, third, and fourth dorsal metatarsals. No fracture. 3. Extensive osteoporosis. Dispensed hydrocodone 5/325. The osteopenia requires further intervention. She should discuss this with her doctor. PLAN: She was given 12 tablets of Vicodin for pain, and she is advised to use them very sparingly and carefully because they have potential for sedating or make her sleepy and drifting and diminish her alertness. Follow up with doctor in a week. /[id number] KRISTINE/ABA GRAY
--- NOTE | 2016-11-26 13:25 | CR ---
INDICATION: Metatarsal fracture. COMPARISON: LEFT FOOT SERIES 30 November 2015. LEFT FOOT SERIES: Nondisplaced fractures of the distal metaphyseal regions of the 4th and 5th metatarsals without callus formation, new. Subtle curvilinear lucency of the distal metaphysis of the 3rd metatarsal also extends to the cortex laterally, subtle finding. Mild degenerative osteoarthritis change mid foot, hind foot, and probable forefoot joints, stable. IMPRESSION: 1. Acute non-displaced fractures distal aspects of the 4th and 5th metatarsals , new. 2. Findings more consistent with probable acute non-displaced fracture distal aspect 3rd metatarsal. Follow-up left foot series in 7-10 days to evaluate for healing fracture at this region recommended for confirmation of findings. [facility]
--- NOTE | 2016-11-26 13:26 | CR ---
INDICATION: Fall and twisted. COMPARISON: Left foot series 30 November 2015. LEFT LOWER LEG SERIES - TIBIA/FIBULA SERIES: Moderate degenerative osteoarthritis change tibiofemoral joint. Metallic plate and multiple metallic screws traverse the femur, partially visualized, intact, and nondisplaced. Moderate osteoporosis. No acute fracture, dislocation, destructive change. Mortise is intact and well maintained. Minimal degenerative osteoarthritis change tibiotalar joint, mid foot, hind foot regions. IMPRESSION: Moderate degenerative osteoarthritis change knee joint, and to a lesser degree ankle, hind foot, mid foot regions, without other evidence of acute osseous pathology. MTDD
== END 2016-11-20 15:30 | disposition home or self-care (01) ==
LOC: FB.ED 13:36
DX: S93.412A Sprain of calcaneofibular ligament of left ankle, initial encounter (principal); S96.912A Strain of unspecified muscle and tendon at ankle and foot level, left foot, initial encounter; S93.525A Sprain of metatarsophalangeal joint of left lesser toe(s), initial encounter; M81.0 Age-related osteoporosis without current pathological fracture; I10 Essential (primary) hypertension; Z98.890 Other specified postprocedural states; Z88.0 Allergy status to penicillin; Z88.1 Allergy status to other antibiotic agents; Z88.2 Allergy status to sulfonamides; W01.0XXA Fall on same level from slipping, tripping and stumbling without subsequent striking against object, initial encounter
CPT/HCPCS: 73590-LT; 73630-LT; 99284

== ENCOUNTER 2016-11-22 09:55 | Emergency (ER) | payer MEDICARE ==
[2016-11-22] MEDS ORDERED: Ketorolac 30 MG/ML SDV IM ONE (10:31)
[2016-11-22] MEDS ORDERED: Cyclobenzaprine 10 MG Tab PO ONE (10:36)
[2016-11-22] MEDS ORDERED: Acetaminophen/oxyCODONE 325-5 MG Tab PO ONE (10:36)
[2016-11-22 11:19] VITALS: BP 140/89
--- NOTE | 2016-11-23 03:28 | ER ---
DATE SEEN: 11/22/2016 CHIEF COMPLAINT: Back pain. HISTORY OF PRESENT ILLNESS: A 70-year-old female with chronic back pain due to lumbar stenosis, who fell on Tuesday, landed on left foot, was seen here, given some hydrocodone for sprain of the foot, possible fracture, has been using postop shoe but complains of pain that is uncontrollable with hydrocodone, also has back pain that is now worsening even though she did not fall directly on the back. She was unable to walk this morning or sleep last night. REVIEW OF SYSTEMS: No weakness of legs. No fever or urinary symptoms. PAST MEDICAL HISTORY: Scoliosis, abdominal pain, and chronic hypertension. ALLERGIES: Reviewed. MEDICATIONS: Reviewed. PHYSICAL EXAMINATION: GENERAL: Not in any cardiopulmonary distress. VITAL SIGNS: Afebrile. Weight 102 kg. HEAD: Normocephalic. EXTREMITIES: Left foot, moderate effusion and swelling of the left ankle and dorsum of the foot extremely tender. BACK: Lower back, lumbar lordosis on inspection, tenderness in the lumbar spine and paraspinal muscles. NEUROLOGIC: No focal findings. DIAGNOSTIC STUDIES: X-ray: I reviewed the x-ray. I did not see any overt fracture on the left foot. IMPRESSION: 1. Foot pain. 2. Chronic back pain with moderate exacerbation. PLAN: Ketorolac 30 mg IM. I will send her home on Percocet 1 tablet every 6 hours and Flexeril 10 mg at bedtime with proposal to see Dr. Johnson in the next 2 days. /[id number] ANILA/ABA
== END 2016-11-22 10:45 | disposition home or self-care (01) ==
LOC: FB.ED 09:55
DX: M79.672 Pain in left foot (principal); M54.5 Low back pain; G89.29 Other chronic pain; I10 Essential (primary) hypertension
CPT/HCPCS: 96372; 99283; A9270; J1885

== ENCOUNTER 2017-01-09 02:03 | Emergency (ER) | payer MEDICARE ==
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
[2017-01-09] MEDS ORDERED: Acetaminophen/HYDROcodone 325-5 MG Tab PO ONE (02:15)
[2017-01-09 02:28] VITALS: BP 107/59
== END 2017-01-09 02:25 | disposition home or self-care (01) ==
LOC: FB.ED 02:03
DX: Z76.0 Encounter for issue of repeat prescription (principal); M54.5 Low back pain; G89.29 Other chronic pain; Z98.890 Other specified postprocedural states; I11.0 Hypertensive heart disease with heart failure; I50.9 Heart failure, unspecified; Z79.899 Other long term (current) drug therapy
CPT/HCPCS: 99283; A9270

== ENCOUNTER 2017-01-10 22:40 | Emergency (ER) | payer MEDICARE ==
[2017-01-10] MEDS ORDERED: Acetaminophen/HYDROcodone 325-10 MG Tab PO ONE (23:14)
[2017-01-10 23:20] VITALS: BP 146/67
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
== END 2017-01-10 23:34 | disposition home or self-care (01) ==
LOC: FB.ED 22:40
DX: S22.000S Wedge compression fracture of unspecified thoracic vertebra, sequela (principal); Z88.2 Allergy status to sulfonamides; Z88.8 Allergy status to other drugs, medicaments and biological substances
CPT/HCPCS: 99283; A9270

== ENCOUNTER 2017-06-05 10:36 | Emergency (ER) | payer MEDICARE ==
[2017-06-05] MEDS ORDERED: Ciprofloxacin 500 MG Tab PO ONE (11:28)
[2017-06-05] MEDS ORDERED: Acetaminophen/HYDROcodone 325-5 MG Tab PO ONE (11:28)
[2017-06-05] MEDS ORDERED: Acetaminophen 500 MG Tab PO ONE (11:35)
[2017-06-05] MEDS ORDERED: traMADol 50 MG Tab PO ONE (11:35)
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
[2017-06-05 12:08] VITALS: BP 148/89
== END 2017-06-05 12:20 | disposition home or self-care (01) ==
LOC: FB.ED 10:36
DX: H60.92 Unspecified otitis externa, left ear (principal); I11.0 Hypertensive heart disease with heart failure; I50.9 Heart failure, unspecified; E66.9 Obesity, unspecified; Z96.21 Cochlear implant status; Z88.1 Allergy status to other antibiotic agents; Z88.2 Allergy status to sulfonamides; Z88.7 Allergy status to serum and vaccine; Z79.899 Other long term (current) drug therapy; Z68.41 Body mass index [BMI] 40.0-44.9, adult
CPT/HCPCS: 36415; 80053; 85025; 85651; 86140; 99283; A9270

== ENCOUNTER 2017-09-05 18:45 | Emergency (ER) | payer MEDICARE ==
[2017-09-05] MEDS ORDERED: Morphine 4 MG/ML Syringe IM ONE (19:19)
[2017-09-05] MEDS ORDERED: Ondansetron 4 MG Tab.DIS PO ONE (19:19)
[2017-09-05] MEDS ORDERED: Morphine 10 MG/ML Syringe ONE (19:28)
--- NOTE | 2017-09-05 22:41 | EDM.PDOC ---
ED HPI GENERAL MEDICAL PROBLEM - General Chief Complaint: General Stated Complaint: Fell, hurt left wrist and low back Time Seen by Provider: 09/05/17 18:50 Source of Information: Reports: Patient History Limitations: Reports: No Limitations - History of Present Illness INITIAL COMMENTS - FREE TEXT/NARRATIVE: c/o fall at home stepped on a loose object, R handed, lives alone altho boyfriend lives upstairs in apartment and helps out pain at L wrist with deformity Dr Bautista at [facility] to remove a max from L femur on 09/14 which will need to be postponed Left Wrist Pain Score (Numeric/FACES): 8 back Pain Score (Numeric/FACES): 4 - Related Data Allergies Allergy/AdvReac Type Severity Reaction Status Date / Time ciprofloxacin [From Cipro] Allergy Itching Verified 09/05/17 19:13 erythromycin base Allergy Hives Verified 09/05/17 19:13 [Erythromycin Base] Influenza Virus Vaccines Allergy Nausea and Verified 09/05/17 19:13 Vomiting Penicillins Allergy Hives Verified 09/05/17 19:13 Sulfa (Sulfonamide Allergy Hives Verified 09/05/17 19:13 Antibiotics) Tetracyclines Allergy Hives Verified 09/05/17 19:13 Home Meds: Home Meds Temazepam [Restoril] 30 mg PO BEDTIME 08/16/16 [History] Multivitamin [Multivitamins] 1 each PO DAILY 11/20/16 [History] Alendronate [Fosamax] 70 mg PO MO 01/09/17 [History] Albuterol [Ventolin HFA] 1 puff Q4H PRN 06/05/17 [History] Cephalexin 500 mg TID 06/05/17 [History] Ciprofloxacin HCl [Cipro] 500 mg PO BID #13 tablet 06/05/17 [Rx] Hydrocort/Neomycin/Polymyxin B [Cortisporin Otic Soln] 4 drop EARLF QID [History] Ibuprofen 600 mg PO Q6H PRN 06/05/17 [History] traMADol HCl [Tramadol HCl] 50 mg PO Q6H PRN #6 tablet 06/05/17 [Rx] Past Medical History HEENT History: Reports: Hard of Hearing, Impaired Vision, Otitis Media Other HEENT History: Deaf right ear. Cardiovascular History: Reports: Heart Failure, Hypertension Other Cardiovascular History: Irregular heart rhythm. Genitourinary History: Reports: Other (See Below) Other Genitourinary History: States recent UTI. 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 Hx compession fracture to back T12 & L4&5. Neurological History: Reports: Neuropathy, Peripheral Other Neuro History: Bilateral peripheral neuropathy. Psychiatric History: Reports: Depression, Other (See Below) Other Psychiatric History: Insomnia. Endocrine/Metabolic History: Reports: Obesity/BMI 30+, Osteoporosis, Other (See Below) Other Endocrine/Metabolic History: Denies diabetes. 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 Cochlear implant right removed due to staph infection. States she is deaf in right ear. GI Surgical History: Reports: Appendectomy, Bariatric Procedure, Cholecystectomy , Colonoscopy, EGD Female Surgical History: Reports: Hysterectomy, Salpingo-Oophorectomy Musculoskeletal Surgical History: Reports: ORIF, Shoulder Replacement, Shoulder Surgery, Other (See Below) Other Musculoskeletal Surgeries/Procedures:: Bilateral rotator cuff. Right total shoulder replacment. Right hip pinning & removal. Left femur pinning. Social & Family History - Family History Family Medical History: Noncontributory - Caffeine Use Caffeine Use: Reports: None Other Caffeine Use: gator aide ED ROS GENERAL - Review of Systems Review Of Systems: See Below Constitutional: Reports: No Symptoms HEENT: Reports: No Symptoms Respiratory: Reports: No Symptoms Cardiovascular: Reports: No Symptoms Endocrine: Reports: No Symptoms GI/Abdominal: Reports: No Symptoms : Reports: No Symptoms Musculoskeletal: Reports: Other (L wrist pain) Skin: Reports: No Symptoms Neurological: Reports: No Symptoms Psychiatric: Reports: No Symptoms Hematologic/Lymphatic: Reports: No Symptoms Immunologic: Reports: No Symptoms ED EXAM, GENERAL - Physical Exam Exam: See Below Exam Limited By: No Limitations General Appearance: Alert, WD/WN, No Apparent Distress Extremities: Other (L wrist with good pulses, some deformity, skin intact, moving all fingers, LT intact, XR with comminuted distal radius fx involving articular surface and ulnar styloid fx, SAC applied with stockinet, webroll, 4" padded fiberglass, Robinson wrap x 2) Neurological: No Motor/Sensory Deficits Psychiatric: Normal Affect, Normal Mood Skin Exam: Warm, Dry, Intact, Normal Color, No Rash Lymphatic: No Adenopathy Course - Orders/Labs/Meds Orders: Active Orders 24 hr Category Date Time Status Wrist Comp Min 3V Lt [CR] Stat Exams 09/05/17 19:17 Taken Meds: Medications Discontinued Medications Generic Name Dose Route Start Last Admin Trade Name Freq PRN Reason Stop Dose Admin Morphine Sulfate 4 mg 09/05/17 19:19 09/05/17 19:31 Morphine IM 09/05/17 19:20 4 mg ONETIME ONE Administration Morphine Sulfate Confirm 09/05/17 19:28 09/05/17 19:32 Morphine Administered 09/05/17 19:29 Not Given Dose 10 mg .ROUTE .STK-MED ONE Ondansetron HCl 4 mg 09/05/17 19:19 09/05/17 19:31 Zofran Odt PO 09/05/17 19:20 4 mg ONETIME ONE Administration Departure - Departure Time of Disposition: 22:44 Disposition: Home, Self-Care 01 Condition: Good Clinical Impression: Left wrist fracture - Discharge Information Instructions: Cast or Splint Care, Adult, Wrist Fracture Treated With Immobilization Referrals: Mir Johnson MD [Primary Care Provider] - Additional Instructions: For pain and inflammation, take acetaminophen 325 mg 2 tabs 4 times a day for 1 week, longer if needed. For pain, take hydroxycodone with acetaminophen 5/325 mg 1 tab every 6 hours as needed. Use ice for 10 minutes 4 times a day for 2 days. Use sling. See Dr Travis Soria in the next several days. Call his office in the morning, [address] [place] [address] [address] at [phone] Call your Physician or Return to Emergency Department if: * Your condition worsens in any way. * You develop fever greater than 100.4. * You have vomitting that does not stop with medications. * You have pain that is not controlled with medications. - My Orders Last 24 Hours: My Active Orders 09/05/17 19:17 Wrist Comp Min 3V Lt [CR] Stat - Assessment/Plan Last 24 Hours: My Active Orders 09/05/17 19:17 Wrist Comp Min 3V Lt [CR] Stat
[2017-09-05] MEDS ORDERED: Morphine 10 MG/ML Syringe IM ONE (22:45)
[2017-09-05] MEDS ORDERED: Acetaminophen/HYDROcodone 325-5 MG Tab PO ONE (22:46)
[2017-09-06 09:27] VITALS: BP 160/88
--- NOTE | 2017-09-06 11:46 | CR ---
INDICATION: Fall, pain. LEFT WRIST: Three views of the left wrist were obtained 09/05/2017 - no comparisons were available. A comminuted Colles type fracture of the distal radial metaphysis is noted with slight impaction of fracture fragments suggested with anterior angulation at the fracture site and with involvement of the radial joint surface along its dorsal aspect in the fracture. There is dorsal offset to a mild degree of the distal fracture fragments. Associated ulnar styloid fracture is seen. A tiny bony density is noted at the distal dorsum of the carpus, which may represent an avulsion chip fracture fragment possibly off the triquetrum. Degenerative changes are noted at the first metacarpocarpal joint of mild to moderate degree and minimal degree at the navicular multangular joints. Minimal degenerative change is also noted at the interphalangeal joints in general. These changes are much more severe, however, at the DIPJs of the second and third fingers. IMPRESSION: 1. Colles fracture of radius and ulna with deformity at the radial fracture site - the ulnar styloid fracture site is adequate in position and alignment. 2. Osteoarthritis. MTDD
== END 2017-09-05 23:07 | disposition home or self-care (01) ==
LOC: FB.ED 19:00
DX: S52.532A Colles' fracture of left radius, initial encounter for closed fracture (principal); S52.612A Displaced fracture of left ulna styloid process, initial encounter for closed fracture; I11.0 Hypertensive heart disease with heart failure; I50.9 Heart failure, unspecified; Z88.1 Allergy status to other antibiotic agents; Z88.7 Allergy status to serum and vaccine; Z88.0 Allergy status to penicillin; Z88.2 Allergy status to sulfonamides; Z79.899 Other long term (current) drug therapy; W19.XXXA Unspecified fall, initial encounter; Y92.009 Unspecified place in unspecified non-institutional (private) residence as the place of occurrence of the external cause
CPT/HCPCS: 73110; 99283; A9270; J2270; 96372

== ENCOUNTER 2017-09-22 18:08 | Emergency (ER) | payer MEDICARE ==
--- NOTE | 2017-09-22 18:48 | EDM.PDOC ---
ED HPI GENERAL MEDICAL PROBLEM - General Stated Complaint: POST SURGICAL L ARM PAIN Time Seen by Provider: 09/22/17 18:08 Source of Information: Reports: Patient History Limitations: Reports: No Limitations - History of Present Illness INITIAL COMMENTS - FREE TEXT/NARRATIVE: 71 y.o.w.f fell on 10/05/2017 onto her left wrist and had surgery last week. She was sent home with 30 Percocets and ate them all in 1 week because of severe pain. He next appointment is on 09/28/2017 for suture removal. Pt denied any trauma since surgery. She is here for wound check and pain meds refill. No other acute medical issues. BP 155/72 RR 20 Temp 37.4 Pulse 83 Pulse ox 98% on RA Onset Date: 09/05/17 Onset Time: 07:00 Duration: Week(s):, Intermittent Location: Reports: Upper Extremity, Left Quality: Reports: Ache, Burning, Pressure Severity: Moderate Improves with: Reports: Rest Worsens with: Reports: Movement Context: Reports: Trauma Associated Symptoms: Reports: No Other Symptoms left wrist Pain Score (Numeric/FACES): 8 - Related Data Allergies Allergy/AdvReac Type Severity Reaction Status Date / Time ciprofloxacin [From Cipro] Allergy Itching Verified 09/22/17 19:11 erythromycin base Allergy Hives Verified 09/22/17 19:11 [Erythromycin Base] Influenza Virus Vaccines Allergy Nausea and Verified 09/22/17 19:11 Vomiting Penicillins Allergy Hives Verified 09/22/17 19:11 Sulfa (Sulfonamide Allergy Hives Verified 09/22/17 19:11 Antibiotics) Tetracyclines Allergy Hives Verified 09/22/17 19:11 Home Meds: Home Meds Temazepam [Restoril] 30 mg PO BEDTIME 08/16/16 [History] Multivitamin [Multivitamins] 1 each PO DAILY 11/20/16 [History] Alendronate [Fosamax] 70 mg PO MO 01/09/17 [History] Albuterol [Ventolin HFA] 1 puff Q4H PRN 06/05/17 [History] Past Medical History HEENT History: Reports: Hard of Hearing, Impaired Vision, Otitis Media Other HEENT History: Deaf right ear. Cardiovascular History: Reports: Heart Failure, Hypertension Other Cardiovascular History: Irregular heart rhythm. Genitourinary History: Reports: Other (See Below) Other Genitourinary History: States recent UTI. 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 Hx compession fracture to back T12 & L4&5. Neurological History: Reports: Neuropathy, Peripheral Other Neuro History: Bilateral peripheral neuropathy. Psychiatric History: Reports: Depression, Other (See Below) Other Psychiatric History: Insomnia. Endocrine/Metabolic History: Reports: Obesity/BMI 30+, Osteoporosis, Other (See Below) Other Endocrine/Metabolic History: Denies diabetes. 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 Cochlear implant right removed due to staph infection. States she is deaf in right ear. GI Surgical History: Reports: Appendectomy, Bariatric Procedure, Cholecystectomy , Colonoscopy, EGD Female Surgical History: Reports: Hysterectomy, Salpingo-Oophorectomy Musculoskeletal Surgical History: Reports: ORIF, Shoulder Replacement, Shoulder Surgery, Other (See Below) Other Musculoskeletal Surgeries/Procedures:: Bilateral rotator cuff. Right total shoulder replacment. Right hip pinning & removal. Left femur pinning. Social & Family History - Family History Family Medical History: Noncontributory - Caffeine Use Caffeine Use: Reports: None Other Caffeine Use: gator aide ED ROS GENERAL - Review of Systems Review Of Systems: See Below Constitutional: Reports: No Symptoms HEENT: Reports: No Symptoms Respiratory: Reports: No Symptoms Cardiovascular: Reports: No Symptoms Endocrine: Reports: No Symptoms GI/Abdominal: Reports: No Symptoms : Reports: No Symptoms Musculoskeletal: Reports: Hand Pain (wrist) Skin: Reports: Wound (left wrist) Neurological: Reports: No Symptoms Psychiatric: Reports: No Symptoms Hematologic/Lymphatic: Reports: No Symptoms Immunologic: Reports: No Symptoms ED EXAM, SKIN/RASH Exam: See Below Exam Limited By: No Limitations General Appearance: Alert, WD/WN, No Apparent Distress Eye Exam: Bilateral Eye: Normal Inspection Ears: Normal External Exam, Normal Canal, Hearing Grossly Normal Nose: Normal Inspection, Normal Mucosa, No Blood Throat/Mouth: Normal Inspection, Normal Lips, Normal Voice, No Airway Compromise Head: Atraumatic, Normocephalic Neck: Normal Inspection, Supple, Non-Tender, Full Range of Motion Respiratory/Chest: No Respiratory Distress, Lungs Clear, Normal Breath Sounds, No Accessory Muscle Use, Chest Non-Tender Cardiovascular: Normal Peripheral Pulses, Regular Rate, Rhythm, No Edema, No Gallop, No JVD, No Murmur, No Rub Peripheral Pulses: 1+: Radial (L) GI/Abdominal: Normal Bowel Sounds, Soft, Non-Tender, No Organomegaly, No Abnormal Bruit, No Mass, Pelvis Stable (Female) Exam: Deferred Rectal (Female) Exam: Deferred Back Exam: Normal Inspection, Full Range of Motion Extremities: Normal Capillary Refill, Limited Range of Motion (left wrist S/P surgery) Neurological: Alert Psychiatric: Normal Affect, Normal Mood Location, Skin: Upper Extremity, Left (wrist) Course - Vital Signs Text/Narrative:: 71 y.o.w.f fell on 10/05/2017 onto her left wrist and had surgery last week. She was sent home with 30 Percocets and ate them all in 1 week because of severe pain. He next appointment is on 09/28/2017 for suture removal. Pt denied any trauma since surgery. She is here for wound check and pain meds refill. No other acute medical issues. BP 155/72 RR 20 Temp 37.4 Pulse 83 Pulse ox 98% on RA PE: WNWD W M her for pain meds refill and wound check Impression: wound check, dressing changes, meds refill Tx: Wound check and redressing, Precocet to take home with. Reexam: Improved Plan: D/C with instructions. Last Recorded V/S: Last Vital Signs Temp 37.2 C 09/22/17 19:10 Pulse 71 09/22/17 19:10 Resp 20 09/22/17 19:10 BP 159/89 H 09/22/17 19:10 Pulse Ox 97 09/22/17 19:10 Departure - Departure Time of Disposition: 18:48 Disposition: Home, Self-Care 01 Condition: Good Clinical Impression: Visit for wound check, Medication refill - Discharge Information Instructions: Acetaminophen; Oxycodone tablets, Wound Care, Adult Referrals: Mir Johnson MD [Primary Care Provider] - Forms: ED Department Discharge Additional Instructions: Please keep arm elevatee, please take the pain meds as recommended, please f/u your Doctor as scheduled, please come back if your symptoms get worse acutely
[2017-09-22] MEDS ORDERED: Acetaminophen/oxyCODONE 325-5 MG Tab PO ONE (18:58)
[2017-09-22 19:21] VITALS: BP 159/89
== END 2017-09-22 19:10 | disposition home or self-care (01) ==
LOC: FB.ED 18:08
DX: S52.532D Colles' fracture of left radius, subsequent encounter for closed fracture with routine healing (principal); S52.612D Displaced fracture of left ulna styloid process, subsequent encounter for closed fracture with routine healing; I11.0 Hypertensive heart disease with heart failure; I50.9 Heart failure, unspecified; E66.9 Obesity, unspecified; E11.40 Type 2 diabetes mellitus with diabetic neuropathy, unspecified; Z88.1 Allergy status to other antibiotic agents; Z88.0 Allergy status to penicillin; Z88.2 Allergy status to sulfonamides; X58.XXXD Exposure to other specified factors, subsequent encounter
CPT/HCPCS: 99283; A9270

== ENCOUNTER 2017-10-09 13:48 | Emergency (ER) | payer MEDICARE ==
[2017-10-09 14:39] VITALS: BP 149/86
--- NOTE | 2017-10-09 17:37 | EDM.PDOC ---
ED HPI GENERAL MEDICAL PROBLEM - General Chief Complaint: Upper Extremity Injury/Pain Stated Complaint: numbness in L 5th digit Time Seen by Provider: 10/09/17 13:50 Source of Information: Reports: Patient History Limitations: Reports: No Limitations - History of Present Illness INITIAL COMMENTS - FREE TEXT/NARRATIVE: Maya comes in with ongoing issues affecting L wrist, status post ORIF earlier this month. She is now reporting pain along the ulnar aspect of the L wrist with numbness and tingling involving the 5th digit and a part of the 4th digit. She has been wearing a soft splint and performing gentle ROM. Left Wrist Pain Score (Numeric/FACES): 9 - Related Data Allergies Allergy/AdvReac Type Severity Reaction Status Date / Time ciprofloxacin [From Cipro] Allergy Itching Verified 10/09/17 14:28 erythromycin base Allergy Hives Verified 10/09/17 14:28 [Erythromycin Base] Influenza Virus Vaccines Allergy Nausea and Verified 10/09/17 14:28 Vomiting Penicillins Allergy Hives Verified 10/09/17 14:28 Sulfa (Sulfonamide Allergy Hives Verified 10/09/17 14:28 Antibiotics) Tetracyclines Allergy Hives Verified 10/09/17 14:28 Home Meds: Home Meds Temazepam [Restoril] 30 mg PO BEDTIME 08/16/16 [History] Multivitamin [Multivitamins] 1 each PO DAILY 11/20/16 [History] Alendronate [Fosamax] 70 mg PO MO 01/09/17 [History] Albuterol [Ventolin HFA] 1 puff Q4H PRN 06/05/17 [History] Hydrocodone/Acetaminophen [Lorcet 5-325 mg Tablet] 1 each PO Q4HR 10/09/17 [ History] Past Medical History HEENT History: Reports: Hard of Hearing, Impaired Vision, Otitis Media Other HEENT History: Deaf right ear. Cardiovascular History: Reports: Heart Failure, Hypertension Other Cardiovascular History: Irregular heart rhythm. Genitourinary History: Reports: Other (See Below) Other Genitourinary History: States recent UTI. 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 Hx compession fracture to back T12 & L4&5. Neurological History: Reports: Neuropathy, Peripheral Other Neuro History: Bilateral peripheral neuropathy. Psychiatric History: Reports: Depression, Other (See Below) Other Psychiatric History: Insomnia. Endocrine/Metabolic History: Reports: Obesity/BMI 30+, Osteoporosis, Other (See Below) Other Endocrine/Metabolic History: Denies diabetes. 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 Cochlear implant right removed due to staph infection. States she is deaf in right ear. GI Surgical History: Reports: Appendectomy, Bariatric Procedure, Cholecystectomy , Colonoscopy, EGD Female Surgical History: Reports: Hysterectomy, Salpingo-Oophorectomy Musculoskeletal Surgical History: Reports: ORIF, Shoulder Replacement, Shoulder Surgery, Other (See Below) Other Musculoskeletal Surgeries/Procedures:: Bilateral rotator cuff. Right total shoulder replacment. Right hip pinning & removal. Left femur pinning. Social & Family History - Family History Family Medical History: Noncontributory - Tobacco Use Smoking Status *Q: Never Smoker Second Hand Smoke Exposure: Yes - Caffeine Use Caffeine Use: Reports: None Other Caffeine Use: gator aide - Recreational Drug Use Recreational Drug Use: No Review of Systems - Review of Systems Review Of Systems: ROS reveals no pertinent complaints other than HPI. ED EXAM, GENERAL - Physical Exam Exam: See Below Exam Limited By: No Limitations General Appearance: Alert, WD/WN, No Apparent Distress, Anxious Head: Normocephalic Neck: Normal Inspection, Supple, Non-Tender Respiratory/Chest: Lungs Clear Cardiovascular: Regular Rate, Rhythm Back Exam: Normal Inspection Extremities: Limited Range of Motion (L wrist: healing ventral wound from ORIF looks fine; mild edema of the wrist with tenderness along the ulnar margin; hypoesthesia to lt touch and pinprick affecting the L 5th digit and the medial portion of the 4th digit; mild weakness of thenar eminence and lumbricals; ) Neurological: Alert, Oriented, CN II-XII Intact Psychiatric: Normal Affect, Anxious Skin Exam: Warm, Dry, Intact Lymphatic: No Adenopathy Course - Vital Signs Text/Narrative:: Exam consistent with mild ulnar neuropathy. Some weakness may be attributal to disuse and guarding. 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 Qualifiers: Laterality: left Qualified Code(s): G56.22 - Lesion of ulnar nerve, left upper limb - Discharge Information Instructions: Peripheral Neuropathy Referrals: Mir Johnson MD [Primary Care Provider] - Forms: ED Department Discharge Additional Instructions: Use ice as needed Elevate extremity Wear soft splint as directed - Problem List & Annotations (1) Ulnar neuropathy at wrist SNOMED Code(s): 438790761, 492786148 Code(s): G56.20 - LESION OF ULNAR NERVE, UNSPECIFIED UPPER LIMB Status: Acute Annotation/Comment:: Continue outpt managment and gentle ROM, elevate and cool packs for comfort, consider NSAIDs for pain managment. Qualifiers: Laterality: left Qualified Code(s): G56.22 - Lesion of ulnar nerve, left upper limb - Problem List Review Problem List Initiated/Reviewed/Updated: Yes - Assessment/Plan Plan: Follow up with Ortho.
== END 2017-10-09 14:30 | disposition home or self-care (01) ==
LOC: FB.ED 13:48
DX: G56.22 Lesion of ulnar nerve, left upper limb (principal); I11.0 Hypertensive heart disease with heart failure; I50.9 Heart failure, unspecified; Z88.1 Allergy status to other antibiotic agents; Z88.0 Allergy status to penicillin; Z79.899 Other long term (current) drug therapy; Z88.7 Allergy status to serum and vaccine
CPT/HCPCS: 99283

== ENCOUNTER 2017-11-03 22:17 | Emergency (ER) | payer MEDICARE ==
--- NOTE | 2017-11-03 22:30 | EDM.PDOC ---
ED HPI GENERAL MEDICAL PROBLEM - General Chief Complaint: Upper Extremity Injury/Pain Stated Complaint: SWOLLING RT WRIST Time Seen by Provider: 11/03/17 22:25 Source of Information: Reports: Patient, Old Records History Limitations: Reports: No Limitations - History of Present Illness INITIAL COMMENTS - FREE TEXT/NARRATIVE: 71 yo female had surgery on her L wrist this past August for a fall with fx's. She has been on tramadol for pain as needed, but is out of this med. Today she bumped the lateral aspect of this wrist on her cupboard and has increased pain to the area. Says she took acetaminophen without relief. She called her doctor and they have not gotten back to her. Has a splint at home. Onset: Today Onset Date: 11/03/17 Onset Time: 09:20 Duration: Hour(s):, Constant Location: Reports: Upper Extremity, Left Quality: Reports: Ache Severity: Moderate Improves with: Reports: None Worsens with: Reports: Movement Context: Reports: Trauma Associated Symptoms: Reports: No Other Symptoms Treatments COOK FAST FOOD: Reports: Acetaminophen - Related Data Allergies Allergy/AdvReac Type Severity Reaction Status Date / Time ciprofloxacin [From Cipro] Allergy Itching Verified 10/09/17 14:28 erythromycin base Allergy Hives Verified 10/09/17 14:28 [Erythromycin Base] Influenza Virus Vaccines Allergy Nausea and Verified 10/09/17 14:28 Vomiting Penicillins Allergy Hives Verified 10/09/17 14:28 Sulfa (Sulfonamide Allergy Hives Verified 10/09/17 14:28 Antibiotics) Tetracyclines Allergy Hives Verified 10/09/17 14:28 Home Meds: Home Meds Temazepam [Restoril] 30 mg PO BEDTIME 08/16/16 [History] Multivitamin [Multivitamins] 1 each PO DAILY 11/20/16 [History] Alendronate [Fosamax] 70 mg PO MO 01/09/17 [History] Albuterol [Ventolin HFA] 1 puff Q4H PRN 06/05/17 [History] Hydrocodone/Acetaminophen [Lorcet 5-325 mg Tablet] 1 each PO Q4HR 10/09/17 [ History] Past Medical History HEENT History: Reports: Hard of Hearing, Impaired Vision, Otitis Media Other HEENT History: Deaf right ear. Cardiovascular History: Reports: Heart Failure, Hypertension Other Cardiovascular History: Irregular heart rhythm. Genitourinary History: Reports: Other (See Below) Other Genitourinary History: States recent UTI. HYDRAULIC SPECIALIST History: Reports: Other HYDRAULIC SPECIALIST History: Musculoskeletal History: Reports: Back Pain, Chronic, Fracture, Osteoporosis, Other (See Below) Other Musculoskeletal History: Fracture right hip and left femur. Hx compession fracture to back T12 & L4&5. Neurological History: Reports: Neuropathy, Peripheral Other Neuro History: Bilateral peripheral neuropathy. Psychiatric History: Reports: Depression, Other (See Below) Other Psychiatric History: Insomnia. Endocrine/Metabolic History: Reports: Obesity/BMI 30+, Osteoporosis, Other (See Below) Other Endocrine/Metabolic History: Denies diabetes. 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 Cochlear implant right removed due to staph infection. States she is deaf in right ear. GI Surgical History: Reports: Appendectomy, Bariatric Procedure, Cholecystectomy , Colonoscopy, EGD Female Surgical History: Reports: Hysterectomy, Salpingo-Oophorectomy Musculoskeletal Surgical History: Reports: ORIF, Shoulder Replacement, Shoulder Surgery, Other (See Below) Other Musculoskeletal Surgeries/Procedures:: Bilateral rotator cuff. Right total shoulder replacment. Right hip pinning & removal. Left femur pinning. Social & Family History - Family History Family Medical History: Noncontributory - Caffeine Use Caffeine Use: Reports: None Other Caffeine Use: justoor quentin Review of Systems - Review of Systems Review Of Systems: See Below Constitutional: Reports: No Symptoms Musculoskeletal: Reports: Joint Pain (L wrist) Skin: Reports: Bruising (Lateral L wrist) Neurological: Reports: No Symptoms ED EXAM, GENERAL - Physical Exam Exam: See Below Exam Limited By: No Limitations General Appearance: Alert, WD/WN, No Apparent Distress Extremities: Other (Old healed surgical scar present to anterior wrist. There is a small bruise laterally. ROM only slightly reduced. ). No: Increased Warmth , Redness Neurological: Alert, Oriented, CN II-XII Intact, Normal Cognition, No Motor/ Sensory Deficits Psychiatric: Normal Affect, Normal Mood Skin Exam: Warm, Dry, Intact, No Rash, Ecchymosis (small bruise laterally. ) Departure - Departure Time of Disposition: 22:31 Disposition: Home, Self-Care 01 Condition: Good Clinical Impression: Wrist pain, left - Discharge Information *PRESCRIPTION DRUG MONITORING PROGRAM REVIEWED*: No *COPY OF PRESCRIPTION DRUG MONITORING REPORT IN PATIENT MANUEL: No Referrals: Mir Johnson MD [Primary Care Provider] - Additional Instructions: Wear your wrist splint for a couple days to allow things to settle down. Take no more than 1000 mg of acetaminophen every 6 hrs for pain relief. Add tramadol for added pain relief. Call your doctor tomorrow to discuss. We cannot give you additional tramadol for this, it needs to come from either your surgeon or your family doctor.
[2017-11-03] MEDS ORDERED: traMADol 50 MG Tab PO ONE (22:37)
[2017-11-04 00:40] VITALS: BP 140/94
== END 2017-11-03 22:43 | disposition home or self-care (01) ==
LOC: FB.ED 22:17
DX: M25.532 Pain in left wrist (principal); I11.0 Hypertensive heart disease with heart failure; I15.0 Renovascular hypertension; F32.9 Major depressive disorder, single episode, unspecified; Z88.1 Allergy status to other antibiotic agents; Z88.0 Allergy status to penicillin; Z88.7 Allergy status to serum and vaccine; Z79.899 Other long term (current) drug therapy
CPT/HCPCS: 99283; A9270; 99282

== ENCOUNTER 2017-11-06 11:51 | Emergency (ER) | payer MEDICARE ==
--- NOTE | 2017-11-06 12:41 | EDM.PDOC ---
ED HPI GENERAL MEDICAL PROBLEM - General Stated Complaint: WRIST PAIN Time Seen by Provider: 11/06/17 11:51 Source of Information: Reports: Patient History Limitations: Reports: No Limitations - History of Present Illness INITIAL COMMENTS - FREE TEXT/NARRATIVE: 71 y.o.w.f underwent left distal repair of her fx'd dis radius and noticed and swelling. Pt has FROM of her wrist, the wound is healing well. She shon see her surgeon this tuesday, she is wearing a Velcro splint at her left wrist. No other acute medical issues. BP 141/70 RR 18 Pulse ox 100 % pulse 80 temp 36.8 Onset Date: 11/04/17 Onset Time: 09:00 Duration: Day(s):, Intermittent, Waxing/Waning Location: Reports: Upper Extremity, Left Quality: Reports: Ache, Dull, Pressure Severity: Mild Improves with: Reports: Rest Worsens with: Reports: Movement Context: Reports: Other (s/p dis radius fx repair) Associated Symptoms: Reports: No Other Symptoms Left Wrist Pain Score (Numeric/FACES): 8 - Related Data Allergies Allergy/AdvReac Type Severity Reaction Status Date / Time ciprofloxacin [From Cipro] Allergy Itching Verified 11/06/17 12:02 erythromycin base Allergy Hives Verified 11/06/17 12:02 [Erythromycin Base] Influenza Virus Vaccines Allergy Nausea and Verified 11/06/17 12:02 Vomiting Penicillins Allergy Hives Verified 11/06/17 12:02 Sulfa (Sulfonamide Allergy Hives Verified 11/06/17 12:02 Antibiotics) Tetracyclines Allergy Hives Verified 11/06/17 12:02 Home Meds: Home Meds Temazepam [Restoril] 30 mg PO BEDTIME 08/16/16 [History] Multivitamin [Multivitamins] 1 each PO DAILY 11/20/16 [History] Alendronate [Fosamax] 70 mg PO MO 01/09/17 [History] traMADol [Ultram] 50 mg PO Q8H PRN #6 tab 11/06/17 [Rx] Past Medical History HEENT History: Reports: Hard of Hearing, Impaired Vision, Otitis Media Other HEENT History: Deaf right ear. Cardiovascular History: Reports: Heart Failure, Hypertension Other Cardiovascular History: Irregular heart rhythm. Genitourinary History: Reports: Other (See Below) Other Genitourinary History: States recent UTI. INTERVENTION ANALYST History: Reports: Other INTERVENTION ANALYST History: Musculoskeletal History: Reports: Back Pain, Chronic, Fracture, Osteoporosis, Other (See Below) Other Musculoskeletal History: Fracture right hip and left femur. Hx compession fracture to back T12 & L4&5. Neurological History: Reports: Neuropathy, Peripheral Other Neuro History: Bilateral peripheral neuropathy. Psychiatric History: Reports: Depression, Other (See Below) Other Psychiatric History: Insomnia. Endocrine/Metabolic History: Reports: Obesity/BMI 30+, Osteoporosis, Other (See Below) Other Endocrine/Metabolic History: Denies diabetes. 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 Cochlear implant right removed due to staph infection. States she is deaf in right ear. GI Surgical History: Reports: Appendectomy, Bariatric Procedure, Cholecystectomy , Colonoscopy, EGD Female Surgical History: Reports: Hysterectomy, Salpingo-Oophorectomy Musculoskeletal Surgical History: Reports: ORIF, Shoulder Replacement, Shoulder Surgery, Other (See Below) Other Musculoskeletal Surgeries/Procedures:: Bilateral rotator cuff. Right total shoulder replacment. Right hip pinning & removal. Left femur pinning. Social & Family History - Family History Family Medical History: Noncontributory - Caffeine Use Caffeine Use: Reports: None Other Caffeine Use: gator aide ED ROS GENERAL - Review of Systems Review Of Systems: See Below Constitutional: Reports: No Symptoms HEENT: Reports: No Symptoms Respiratory: Reports: No Symptoms Cardiovascular: Reports: No Symptoms, Palpitations Endocrine: Reports: No Symptoms GI/Abdominal: Reports: No Symptoms : Reports: No Symptoms Musculoskeletal: Reports: Joint Pain (left wrist s/p surgery) Skin: Reports: No Symptoms (well healed surgical wound left wrist) Neurological: Reports: No Symptoms Psychiatric: Reports: No Symptoms Hematologic/Lymphatic: Reports: No Symptoms Immunologic: Reports: No Symptoms ED EXAM, GENERAL - Physical Exam Exam: See Below Exam Limited By: No Limitations General Appearance: Alert, WD/WN, Mild Distress Eye Exam: Bilateral Eye: Normal Inspection Ears: Normal External Exam Ear Exam: Bilateral Ear: Auricle Normal Nose: Normal Inspection, Normal Mucosa Throat/Mouth: Normal Inspection, Normal Lips, Normal Gums, Normal Oropharynx, Normal Voice, No Airway Compromise Head: Atraumatic, Normocephalic Neck: Normal Inspection, Supple, Non-Tender, Full Range of Motion Respiratory/Chest: No Respiratory Distress, Lungs Clear, Normal Breath Sounds, No Accessory Muscle Use, Chest Non-Tender Cardiovascular: Normal Peripheral Pulses, Regular Rate, Rhythm, No Edema, No JVD , No Murmur, No Rub Peripheral Pulses: 1+: Brachial (R) GI/Abdominal: Normal Bowel Sounds, Soft, Non-Tender, No Organomegaly, No Distention, No Abnormal Bruit, No Mass, Pelvis Stable (Female) Exam: Deferred Rectal (Female) Exam: Deferred Back Exam: Normal Inspection, Full Range of Motion Extremities: Normal Inspection, Normal Range of Motion, Non-Tender, No Pedal Edema, Normal Capillary Refill Neurological: Alert, Oriented, CN II-XII Intact, Normal Cognition, Normal Gait, Normal Reflexes, No Motor/Sensory Deficits Psychiatric: Normal Affect, Normal Mood Skin Exam: Warm, Dry, Intact, Normal Color, No Rash Lymphatic: No Adenopathy Course - Vital Signs Text/Narrative:: 71 y.o.w.f underwent left distal repair of her fx'd dis radius and noticed and swelling. Pt has FROM of her wrist, the wound is healing well. She shon see her surgeon this tuesday, she is wearing a Velcro splint at her left wrist. No other acute medical issues. BP 141/70 RR 18 Pulse ox 100 % pulse 80 temp 36.8 PE: WNWD W F with minoe left wrist discomfort Impression: Left wrist sprain after surgery 2 weeks ago Tx: Ultram Reexam: improved Plan: D/C with instructions Last Recorded V/S: Last Vital Signs Temp 37.1 C 11/06/17 12:10 Pulse 69 11/06/17 12:10 Resp 18 11/06/17 12:10 BP 141/70 H 11/06/17 12:10 Pulse Ox 100 11/06/17 12:10 Departure - Departure Time of Disposition: 12:41 Disposition: Home, Self-Care 01 Condition: Good Clinical Impression: Left wrist sprain Qualifiers: Encounter type: initial encounter Qualified Code(s): S63.502A - Unspecified sprain of left wrist, initial encounter - Discharge Information *PRESCRIPTION DRUG MONITORING PROGRAM REVIEWED*: Yes *COPY OF PRESCRIPTION DRUG MONITORING REPORT IN PATIENT MANUEL: Yes Prescriptions: traMADol [Ultram] 50 mg PO Q8H PRN #6 tab PRN Reason: for severe pain Referrals: Mir Johnson MD [Primary Care Provider] - Forms: ED Department Discharge Care Plan Goals: ICE rest and elevation, use valcro splint at night. Ultram for severe pain only. Please f/u with your Doctor this Tuesday as scheduled. Come back if your symptoms get worse acutely
[2017-11-06 14:17] VITALS: BP 141/70
== END 2017-11-06 12:54 | disposition home or self-care (01) ==
LOC: FB.ED 11:51
DX: S63.502A Unspecified sprain of left wrist, initial encounter (principal); I11.0 Hypertensive heart disease with heart failure; I50.9 Heart failure, unspecified; Z88.1 Allergy status to other antibiotic agents; Z88.0 Allergy status to penicillin; Z88.2 Allergy status to sulfonamides; Z88.7 Allergy status to serum and vaccine; W22.8XXA Striking against or struck by other objects, initial encounter
CPT/HCPCS: 99283

== ENCOUNTER 2017-11-30 21:29 | Emergency (ER) | payer MEDICARE ==
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
[2017-11-30] MEDS: Acetaminophen/HYDROcodone 325-5 MG Tab PO ONE (22:21)
[2017-11-30 23:26] VITALS: BP 141/90
== END 2017-11-30 22:22 | disposition home or self-care (01) ==
LOC: FB.ED 21:29
DX: M25.532 Pain in left wrist (principal); E66.9 Obesity, unspecified; I10 Essential (primary) hypertension; Z88.0 Allergy status to penicillin; Z88.2 Allergy status to sulfonamides; Z88.1 Allergy status to other antibiotic agents; Z88.8 Allergy status to other drugs, medicaments and biological substances
CPT/HCPCS: 99283; A9270

== ENCOUNTER 2018-06-22 22:03 | Emergency (ER) | payer MEDICARE ==
[2018-06-22] MEDS ORDERED: traMADol 50 MG Tab PO ONE ×2 (22:04→22:25)
--- NOTE | 2018-06-22 22:25 | EDM.PDOC ---
ED HPI GENERAL MEDICAL PROBLEM - General Stated Complaint: SOB Time Seen by Provider: 06/22/18 22:03 Source of Information: Reports: Patient History Limitations: Reports: No Limitations - History of Present Illness INITIAL COMMENTS - FREE TEXT/NARRATIVE: 72 y.o.w.f with a H/O pleurisy and a "spot at her left lung" for which she has a CT Chest scheduled next week, came to the ed due to pain in her chest hen taking a deep breath. Pt uses Ultram for it. She ran out of pain meds. No Trauma. No N/V/D or any other acute med issues. BP 155/97 RR 18 Pulse ox 95 Temp 37.1 pulse 83 Onset Date: 06/22/18 Onset Time: 09:00 Duration: Hour(s):, Day(s):, Intermittent Location: Reports: Chest Quality: Reports: Dull, Same as Previous Episode Improves with: Reports: Rest Worsens with: Reports: Movement Context: Reports: Sick Contact Associated Symptoms: Reports: Chest Pain (with inspiration), Shortness of Breath (due to pain when takinga deep breath.) left side under breast Pain Score (Numeric/FACES): 7 - Related Data Allergies Allergy/AdvReac Type Severity Reaction Status Date / Time ciprofloxacin [From Cipro] Allergy Itching Verified 06/22/18 22:30 erythromycin base Allergy Hives Verified 06/22/18 22:30 [Erythromycin Base] Influenza Virus Vaccines Allergy Nausea and Verified 06/22/18 22:30 Vomiting Penicillins Allergy Hives Verified 06/22/18 22:30 Sulfa (Sulfonamide Allergy Hives Verified 06/22/18 22:30 Antibiotics) Tetracyclines Allergy Hives Verified 06/22/18 22:30 Home Meds: Home Meds Temazepam [Restoril] 30 mg PO BEDTIME 08/16/16 [History] Multivitamin [Multivitamins] 1 each PO DAILY 11/20/16 [History] Alendronate [Fosamax] 70 mg PO MO 01/09/17 [History] traMADol [Ultram] 50 mg PO Q8H PRN #6 tab 11/06/17 [Rx] Albuterol [Ventolin HFA] 90 mcg INH ASDIRECTED 06/22/18 [History] Fluticasone/Vilanterol [Breo Ellipta 100-25 MCG Inhalation Kit] 1 each IH DAILY 06/22/18 [History] Past Medical History HEENT History: Reports: Hard of Hearing, Impaired Vision, Otitis Media Other HEENT History: Deaf right ear. Cardiovascular History: Reports: Heart Failure, Hypertension Other Cardiovascular History: Irregular heart rhythm. Genitourinary History: Reports: Other (See Below) Other Genitourinary History: States recent UTI. 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 Hx compession fracture to back T12 & L4&5. Neurological History: Reports: Neuropathy, Peripheral Other Neuro History: Bilateral peripheral neuropathy. Psychiatric History: Reports: Depression, Other (See Below) Other Psychiatric History: Insomnia. Endocrine/Metabolic History: Reports: Obesity/BMI 30+, Osteoporosis, Other (See Below) Other Endocrine/Metabolic History: Denies diabetes. 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 Cochlear implant right removed due to staph infection. States she is deaf in right ear. GI Surgical History: Reports: Appendectomy, Bariatric Procedure, Cholecystectomy , Colonoscopy, EGD Female Surgical History: Reports: Hysterectomy, Salpingo-Oophorectomy Musculoskeletal Surgical History: Reports: ORIF, Shoulder Replacement, Shoulder Surgery, Other (See Below) Other Musculoskeletal Surgeries/Procedures:: Bilateral rotator cuff. Right total shoulder replacment. Right hip pinning & removal. Left femur pinning. L wrist ORIF Social & Family History - Family History Family Medical History: Noncontributory - Caffeine Use Caffeine Use: Reports: None Other Caffeine Use: gator aide ED ROS GENERAL - Review of Systems Review Of Systems: See Below Constitutional: Reports: No Symptoms HEENT: Reports: No Symptoms Respiratory: Reports: Pleuritic Chest Pain Cardiovascular: Reports: No Symptoms Endocrine: Reports: No Symptoms GI/Abdominal: Reports: No Symptoms : Reports: No Symptoms Musculoskeletal: Reports: No Symptoms Skin: Reports: No Symptoms Neurological: Reports: No Symptoms Psychiatric: Reports: No Symptoms Hematologic/Lymphatic: Reports: No Symptoms Immunologic: Reports: No Symptoms ED EXAM, GENERAL - Physical Exam Exam: See Below Exam Limited By: No Limitations General Appearance: Alert, WD/WN, Mild Distress Eye Exam: Bilateral Eye: Normal Inspection Ears: Normal External Exam Ear Exam: Bilateral Ear: Auricle Normal Nose: Normal Inspection, Normal Mucosa, No Blood Throat/Mouth: Normal Inspection, Normal Lips, Normal Voice, No Airway Compromise Head: Atraumatic, Normocephalic Neck: Normal Inspection, Supple, Non-Tender Respiratory/Chest: No Respiratory Distress, Lungs Clear, Normal Breath Sounds, No Accessory Muscle Use, Other (tender left chest wall) Cardiovascular: Normal Peripheral Pulses Peripheral Pulses: 2+: Brachial (R) GI/Abdominal: Normal Bowel Sounds, Soft, Non-Tender, No Organomegaly, No Abnormal Bruit, No Mass, Pelvis Stable (Female) Exam: Deferred Rectal (Female) Exam: Deferred Back Exam: Normal Inspection, Full Range of Motion Extremities: Normal Inspection, Normal Range of Motion, Non-Tender, No Pedal Edema, Normal Capillary Refill Neurological: Alert, Oriented, CN II-XII Intact, Normal Cognition, Normal Gait Psychiatric: Normal Affect, Normal Mood Skin Exam: Warm, Dry, Intact, Normal Color, No Rash Lymphatic: No Adenopathy Course - Vital Signs Text/Narrative:: 72 y.o.w.f with a H/O pleurisy and a "spot at her left lung" for which she has a CT Chest scheduled next week, came to the ed due to pain in her chest hen taking a deep breath. Pt uses Ultram for it. She ran out of pain meds. No Trauma. No N/V/D or any other acute med issues. BP 155/97 RR 18 Pulse ox 95 Temp 37.1 pulse 83 PE: WNWD W F with pleuritic chest pain Impression: Pleurisy Tx: Ultram Reexam: Pain subsided, Plan: D/C with instructions Last Recorded V/S: Last Vital Signs Temp 37.1 C 06/22/18 22:03 Pulse 61 06/22/18 22:55 Resp 18 06/22/18 22:03 BP 153/85 H 06/22/18 22:55 Pulse Ox 96 06/22/18 22:55 - Orders/Labs/Meds Meds: Medications Discontinued Medications Generic Name Dose Route Start Last Admin Trade Name Marychuy PRN Reason Stop Dose Admin Tramadol HCl 50 mg 06/22/18 22:25 06/22/18 22:29 Ultram PO 06/22/18 22:26 50 mg ONETIME ONE Administration Departure - Departure Time of Disposition: 22:51 Disposition: Home, Self-Care 01 Condition: Good Clinical Impression: Pleurisy - Discharge Information Instructions: Pleurisy, [id number] Referrals: PCP,None [Primary Care Provider] - Forms: ED Department Discharge Additional Instructions: Please take Ultram for pain, please f/u with your PMD as scheduled for ab CT Chest, please come back if your symptoms get worse acutely wore
[2018-06-22 23:12] VITALS: BP 153/85
== END 2018-06-22 22:56 | disposition home or self-care (01) ==
LOC: FB.ED 22:03
DX: R09.1 Pleurisy (principal); I11.0 Hypertensive heart disease with heart failure; I50.9 Heart failure, unspecified; F32.9 Major depressive disorder, single episode, unspecified; Z79.899 Other long term (current) drug therapy; Z88.7 Allergy status to serum and vaccine; Z88.0 Allergy status to penicillin; Z88.2 Allergy status to sulfonamides; Z88.1 Allergy status to other antibiotic agents
CPT/HCPCS: 99284; A9270

== ENCOUNTER 2018-08-02 09:37 | Emergency (ER) | payer MEDICARE ==
[2018-08-02] MEDS ORDERED: Promethazine 25 MG/ML SDV IM PRN (10:37)
[2018-08-02] MEDS ORDERED: Morphine 10 MG/ML Syringe IM ONE (10:37)
--- NOTE | 2018-08-02 10:49 | EDM.PDOC ---
ED HPI GENERAL MEDICAL PROBLEM - General Chief Complaint: Upper Extremity Injury/Pain Stated Complaint: POST SURGERY SHOULDER PAIN Time Seen by Provider: 08/02/18 10:15 Source of Information: Reports: Patient History Limitations: Reports: No Limitations - History of Present Illness INITIAL COMMENTS - FREE TEXT/NARRATIVE: 72-year-old female who had total reverse shoulder replacement on the left shoulder on 07/27/2018. She was discharged from the hospital on 07/31/2018 and the plan had originally been for her to go to swing bed after the hospitalization but apparently her insurance had not approved swing bed status at discharge so she went home. She has been at home since 07/31/2018 and has had uncontrolled pain in her left shoulder that has been worsening with time. Her pain is currently in a level of 9/10. It is sharp, aching and throbbing. It is worse with any kind of movement and palpation. She has had some nausea associated with this but no vomiting. She's had no fevers or chills. She's had no trouble breathing. She has had normal urination and normal bowel movements. She is, however, unable to do any of her ADL's secondary to her uncontrolled pain. She states she has been taking 2 hydrocodone 5/325's every 4 hours and she is not getting relief from her pain. She presents here with uncontrolled pain. She is questioning whether she can now go to swing bed status or some other rehabilitation. There are no other associated signs or symptoms. There are no other modifying factors. 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: Other Medication(s) (Hydrocodone 5/325) L shoulder Pain Score (Numeric/FACES): 9 - Related Data Allergies Allergy/AdvReac Type Severity Reaction Status Date / Time ciprofloxacin [From Cipro] Allergy Itching Verified 08/02/18 09:41 erythromycin base Allergy Hives Verified 08/02/18 09:41 [Erythromycin Base] Influenza Virus Vaccines Allergy Nausea and Verified 08/02/18 09:41 Vomiting Penicillins Allergy Hives Verified 08/02/18 09:41 Sulfa (Sulfonamide Allergy Hives Verified 08/02/18 09:41 Antibiotics) Tetracyclines Allergy Hives Verified 08/02/18 09:41 Home Meds: Home Meds Temazepam [Restoril] 30 mg PO BEDTIME 08/16/16 [History] Multivitamin [Multivitamins] 1 each PO DAILY 11/20/16 [History] Albuterol [Ventolin HFA] 90 mcg INH ASDIRECTED 06/22/18 [History] Acetaminophen/HYDROcodone [[place] 325-5 MG] 2 tab PO Q4H PRN 08/02/18 [History] Fluticasone/Vilanterol [Breo Ellipta 100-25 MCG Inhalation Kit] 1 puff IH DAILY 08/02/18 [History] Past Medical History HEENT History: Reports: Hard of Hearing (Cochlear implant), Impaired Vision, Otitis Media Other HEENT History: Deaf right ear. Cardiovascular History: Reports: Heart Failure, Heart Murmur, Hypertension Other Cardiovascular History: Irregular heart rhythm. Respiratory History: Reports: Other (See Below) Other Respiratory History: has spot on L lung, states is not CA. 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 Hx compession fracture to back T12 & L4&5. Neurological History: Reports: Neuropathy, Peripheral Other Neuro History: Bilateral peripheral neuropathy. Psychiatric History: Reports: Depression, Other (See Below) Other Psychiatric History: Insomnia. Endocrine/Metabolic History: Reports: Obesity/BMI 30+, Osteoporosis Other Endocrine/Metabolic History: Denies diabetes. 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 Cochlear implant right removed due to staph infection. States she is deaf in right ear. GI Surgical History: Reports: Appendectomy, Bariatric Procedure, Cholecystectomy , Colonoscopy, EGD Other GI Surgeries/Procedures: gastric bypass x 2 Female Surgical History: Reports: Hysterectomy, Salpingo-Oophorectomy Musculoskeletal Surgical History: Reports: ORIF, Shoulder Replacement, Shoulder Surgery, Other (See Below) Other Musculoskeletal Surgeries/Procedures:: Bilateral rotator cuff. Bilat total shoulder replacement. Right hip pinning & removal. Left femur pinning. L wrist ORIF Social & Family History - Tobacco Use Smoking Status *Q: Never Smoker - Caffeine Use Caffeine Use: Reports: None Other Caffeine Use: gator aide - Alcohol Use Alcohol Use History: No - Recreational Drug Use Recreational Drug Use: No - Living Situation & Occupation Living situation: Reports: Alone Social History Comment: Lives at home alone. Review of Systems - Review of Systems Review Of Systems: See Below Constitutional: Reports: No Symptoms Eyes: Reports: No Symptoms Ears: Reports: No Symptoms Nose: Reports: No Symptoms Mouth/Throat: Reports: No Symptoms Respiratory: Reports: No Symptoms Cardiovascular: Reports: No Symptoms GI/Abdominal: Reports: Nausea. Denies: Vomiting Genitourinary: Reports: No Symptoms Musculoskeletal: Reports: Joint Pain (Left shoulder pain, uncontrolled) Skin: Reports: Other (Ecchymosis around left shoulder surgical incision) Neurological: Reports: No Symptoms Psychiatric: Reports: No Symptoms ED EXAM, GENERAL - Physical Exam Exam: See Below Exam Limited By: No Limitations General Appearance: Alert, Moderate Distress, Obese Eye Exam: Bilateral Eye: EOMI, Normal Inspection, PERRL Ears: Normal External Exam, Hearing Grossly Normal Nose: Normal Inspection, Normal Mucosa, No Blood Throat/Mouth: Normal Inspection, Normal Oropharynx, Normal Voice, No Airway Compromise Head: Atraumatic, Normocephalic Neck: Normal Inspection, Supple, Non-Tender, Full Range of Motion Respiratory/Chest: No Respiratory Distress, Lungs Clear, Normal Breath Sounds, No Accessory Muscle Use, Chest Non-Tender Cardiovascular: Normal Peripheral Pulses, Regular Rate, Rhythm, No JVD Peripheral Pulses: 2+: Radial (L), Radial (R) GI/Abdominal: Normal Bowel Sounds, Soft, Non-Tender, No Organomegaly, No Mass, Other (Protuberant) Back Exam: Normal Inspection Extremities: Normal Capillary Refill, Limited Range of Motion, Other (Surgical incision on the anterior aspect of the left shoulder area which has ecchymosis and some mild erythema inferiorly. There is no drainage.) Neurological: Alert, Oriented, CN II-XII Intact, Normal Cognition, No Motor/ Sensory Deficits Skin Exam: Warm, Dry, No Rash Course - Vital Signs Last Recorded V/S: Last Vital Signs Temp 36.7 C 08/02/18 09:37 Pulse 89 08/02/18 09:37 Resp 20 08/02/18 09:37 BP 157/66 H 08/02/18 09:37 Pulse Ox 99 08/02/18 09:37 - Orders/Labs/Meds Meds: Medications Discontinued Medications Generic Name Dose Route Start Last Admin Trade Name Marychuy PRN Reason Stop Dose Admin Morphine Sulfate 10 mg 08/02/18 11:00 08/02/18 11:13 Morphine IM 08/02/18 11:01 10 mg ONETIME ONE Administration Oxycodone/Acetaminophen 2 tab 08/02/18 14:42 08/02/18 14:46 Percocet 325-5 Mg PO 08/02/18 14:43 2 tab ONETIME ONE Administration Promethazine HCl 12.5 mg 08/02/18 10:37 Phenergan IM Q4H PRN Nausea/Vomiting Promethazine HCl 12.5 mg 08/02/18 10:51 08/02/18 11:14 Phenergan IM 08/02/18 10:52 12.5 mg ONETIME ONE Administration - Re-Assessments/Exams Free Text/Narrative Re-Assessment/Exam: 08/02/18 12:05: Patient has been given morphine 10 mg IM and Phenergan 12.5 mg IM for her pain. Patient would not qualify for swing bed at [facility]. Elba, social sciences professor, is looking into alternatives. I have discussed the patient's case with Dr. Johsnon and he will see the patient. 08/02/18 13:00: Elba is looking into the possibility of the patient going to [facility] for swing bed placement. Dr. Johnson has seen the patient and the disposition will be either to [facility] or to home with more pain medications if [facility] is not a possibility. 08/02/18 14:35: [facility] has accepted the patient for swing bed placement. Patient's pain is worsening and I will order Percocet 5/325 2 by mouth now. Departure - Departure Time of Disposition: 15:00 Disposition: DC/Tfer to Inpt Rehab Fac 62 Condition: Good Clinical Impression: Acute postoperative pain of left shoulder, Uncontrolled pain, Impaired mobility and ADLs - Discharge Information Referrals: Mir Johnson MD [Primary Care Provider] - Forms: ED Department Discharge Additional Instructions: You are being discharged to [facility] for swing bed and inpatient rehabilitation.
[2018-08-02] MEDS: Morphine 10 MG/ML SDV IM ONE (11:13)
[2018-08-02] MEDS: Promethazine 25 MG/ML SDV IM ONE (11:14)
[2018-08-02] MEDS: Acetaminophen/oxyCODONE 325-5 MG Tab PO ONE (14:46)
[2018-08-02 16:28] VITALS: BP 145/71
== END 2018-08-02 15:52 ==
LOC: FB.ED 09:37
DX: G89.18 Other acute postprocedural pain (principal); M25.512 Pain in left shoulder; I11.0 Hypertensive heart disease with heart failure; I50.9 Heart failure, unspecified; F32.9 Major depressive disorder, single episode, unspecified; Z74.1 Need for assistance with personal care; Z88.1 Allergy status to other antibiotic agents; Z88.7 Allergy status to serum and vaccine; Z88.0 Allergy status to penicillin; Z88.2 Allergy status to sulfonamides; Z79.899 Other long term (current) drug therapy
CPT/HCPCS: 96372; 99284; A9270; J2270; J2550

== ENCOUNTER 2018-08-20 13:07 | Emergency (ER) | payer MEDICARE ==
[2018-08-20 13:21] VITALS: BP 145/87
[2018-08-20] MEDS ORDERED: traMADol 50 MG Tab PO ONE (13:42)
--- NOTE | 2018-08-20 13:48 | EDM.PDOC ---
ED HPI GENERAL MEDICAL PROBLEM - General Chief Complaint: Upper Extremity Injury/Pain Stated Complaint: PAIN LT SHOULDER Time Seen by Provider: 08/20/18 13:07 Source of Information: Reports: Patient History Limitations: Reports: No Limitations - History of Present Illness INITIAL COMMENTS - FREE TEXT/NARRATIVE: 72 y.o.w.f came to the ED due to left shoulder pain. Pt had her left shoulder replaced on Jul 27 2018 at [facility]. She had a F/U on 08/11/2018 when X rays were taken which looked good. Pt took 90 tables of Oxycodon-prescribed by her PA - since aug 12 2018 and has sill pain at her left shoulder. Pt denied trauma. She locates her pain at her left distal humerus. She has FROM of her left elbow. No CP, no SOB, no N/V/V no Dizziness or any other acute medical issues. BP 145/87 RR 15 Pulse ox 97% on RA Pulse 87 Temp 36.6 Onset Date: 09/11/18 Onset Time: 11:00 Duration: Day(s):, Intermittent, Waxing/Waning Location: Reports: Upper Extremity, Left Quality: Reports: Ache, Burning, Dull, Throbbing Severity: Mild Improves with: Reports: Rest Worsens with: Reports: Movement Associated Symptoms: Reports: No Other Symptoms left shoulder/arm Pain Score (Numeric/FACES): 9 - Related Data Allergies Allergy/AdvReac Type Severity Reaction Status Date / Time ciprofloxacin [From Cipro] Allergy Itching Verified 08/02/18 09:41 erythromycin base Allergy Hives Verified 08/02/18 09:41 [Erythromycin Base] ibuprofen Allergy Other Verified 08/20/18 13:18 Influenza Virus Vaccines Allergy Nausea and Verified 08/02/18 09:41 Vomiting Penicillins Allergy Hives Verified 08/02/18 09:41 Sulfa (Sulfonamide Allergy Hives Verified 08/02/18 09:41 Antibiotics) Tetracyclines Allergy Hives Verified 08/02/18 09:41 Home Meds: Home Meds Temazepam [Restoril] 30 mg PO BEDTIME 08/16/16 [History] Multivitamin [Multivitamins] 1 each PO DAILY 11/20/16 [History] Albuterol [Ventolin HFA] 90 mcg INH ASDIRECTED 06/22/18 [History] Acetaminophen/HYDROcodone [[place] 325-5 MG] 2 tab PO Q4H PRN 08/02/18 [History] Fluticasone/Vilanterol [Breo Ellipta 100-25 MCG Inhalation Kit] 1 puff IH DAILY 08/02/18 [History] Past Medical History HEENT History: Reports: Hard of Hearing, Impaired Vision, Otitis Media Other HEENT History: Deaf right ear. Cardiovascular History: Reports: Heart Failure, Heart Murmur, Hypertension Other Cardiovascular History: Irregular heart rhythm. Respiratory History: Reports: Other (See Below) Other Respiratory History: has spot on L lung, states is not CA. Gastrointestinal History: Reports: None Genitourinary History: Reports: Other (See Below) Other Genitourinary History: States recent UTI. 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 Hx compession fracture to back T12 & L4&5. Neurological History: Reports: Neuropathy, Peripheral Other Neuro History: Bilateral peripheral neuropathy. Psychiatric History: Reports: Depression, Other (See Below) Other Psychiatric History: Insomnia. Endocrine/Metabolic History: Reports: Obesity/BMI 30+, Osteoporosis Other Endocrine/Metabolic History: Denies diabetes. 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 Cochlear implant right removed due to staph infection. States she is deaf in right ear. GI Surgical History: Reports: Appendectomy, Bariatric Procedure, Cholecystectomy , Colonoscopy, EGD Other GI Surgeries/Procedures: gastric bypass x 2 Female Surgical History: Reports: Hysterectomy, Salpingo-Oophorectomy Musculoskeletal Surgical History: Reports: ORIF, Shoulder Replacement, Shoulder Surgery, Other (See Below) Other Musculoskeletal Surgeries/Procedures:: Bilateral rotator cuff. Bilat total shoulder replacement. Right hip pinning & removal. Left femur pinning. L wrist ORIF Social & Family History - Family History Family Medical History: Noncontributory - Tobacco Use Tobacco Use Comment: states that she has been exposed to seconf hand smoke thus diagnosed with COPD. Second Hand Smoke Exposure: Yes - Caffeine Use Caffeine Use: Reports: Other Other Caffeine Use: states that she drinks gatorade at times. - Recreational Drug Use Recreational Drug Use: No - Living Situation & Occupation Living situation: Reports: Alone Review of Systems - Review of Systems Review Of Systems: See Below Constitutional: Reports: No Symptoms Eyes: Reports: No Symptoms Ears: Reports: No Symptoms Nose: Reports: No Symptoms Mouth/Throat: Reports: No Symptoms Respiratory: Reports: No Symptoms Cardiovascular: Reports: No Symptoms GI/Abdominal: Reports: No Symptoms Genitourinary: Reports: No Symptoms Musculoskeletal: Reports: Shoulder Pain, Arm Pain Skin: Reports: No Symptoms Neurological: Reports: No Symptoms Psychiatric: Reports: No Symptoms ED EXAM, GENERAL - Physical Exam Exam: See Below Exam Limited By: No Limitations General Appearance: Alert, WD/WN Eye Exam: Bilateral Eye: Abnormal EOM Ears: Normal External Exam Ear Exam: Bilateral Ear: Auricle Normal Nose: Normal Inspection Throat/Mouth: Normal Lips, Normal Voice, No Airway Compromise Head: Atraumatic, Normocephalic Neck: Normal Inspection, Supple, Non-Tender, Full Range of Motion Respiratory/Chest: No Respiratory Distress, Lungs Clear, Normal Breath Sounds, Chest Non-Tender Cardiovascular: Normal Peripheral Pulses, Regular Rate, Rhythm, No Edema, No Rub GI/Abdominal: Normal Bowel Sounds, Soft, Non-Tender, No Organomegaly, No Mass (Female) Exam: Deferred Rectal (Female) Exam: Deferred Back Exam: Normal Inspection Extremities: Normal Inspection, Limited Range of Motion (right shoulder ) Neurological: Alert, Oriented, CN II-XII Intact Psychiatric: Normal Affect, Normal Mood Skin Exam: Warm, Dry, Intact, Normal Color, No Rash Lymphatic: No Adenopathy Course - Vital Signs Text/Narrative:: 72 y.o.w.f came to the ED due to left shoulder pain. Pt had her left shoulder replaced on Jul 27 2018 at [facility]. She had a F/U on 08/11/2018 when X rays were taken which looked good. Pt took 90 tables of Oxycodon-prescribed by her PA - since aug 12 2018 and has sill pain at her left shoulder. Pt denied trauma. She locates her pain at her left distal humerus. She has FROM of her left elbow. No CP, no SOB, no N/V/V no Dizziness or any other acute medical issues. BP 145/87 RR 15 Pulse ox 97% on RA Pulse 87 Temp 36.6 PE: WNWD W F in NAD with left arm pain H/O gastric ulcers Imaging: Left elbow done at [place] 08/11/2018 Impression: Left shoulder sprain Tx: Ultram to go home with Plan: D/C with instructions Last Recorded V/S: Last Vital Signs Temp 37.0 C 08/20/18 13:20 Pulse 93 08/20/18 13:20 Resp 15 08/20/18 13:20 BP 145/87 H 08/20/18 13:20 Pulse Ox 97 08/20/18 13:20 Departure - Departure Time of Disposition: 13:47 Disposition: Home, Self-Care 01 Condition: Good Clinical Impression: Shoulder pain, left Qualifiers: Chronicity: unspecified Qualified Code(s): M25.512 - Pain in left shoulder - Discharge Information Referrals: Mir Johnson MD [Primary Care Provider] - Forms: ED Department Discharge Additional Instructions: Pleas etake ultram for pain, ice, rest elevation, move shoulder as tolerated. Please f/u with your PMD, come back if your symptoms get worse acutely
== END 2018-08-20 13:51 | disposition home or self-care (01) ==
LOC: FB.ED 13:07
DX: M25.512 Pain in left shoulder (principal); I11.0 Hypertensive heart disease with heart failure; I50.9 Heart failure, unspecified; F32.9 Major depressive disorder, single episode, unspecified; Z79.899 Other long term (current) drug therapy; Z77.22 Contact with and (suspected) exposure to environmental tobacco smoke (acute) (chronic); Z88.1 Allergy status to other antibiotic agents; Z88.0 Allergy status to penicillin; Z88.7 Allergy status to serum and vaccine
CPT/HCPCS: 99283; A9270-GY

== ENCOUNTER 2018-10-01 22:46 | Emergency (ER) | payer MEDICARE, MEDICAID ==
[2018-10-01 22:57] VITALS: BP 164/89; PULSE 85
[2018-10-01] MEDS ORDERED: traMADol 50 MG Tab PO ONE (23:06)
--- NOTE | 2018-10-01 23:12 | EDM.PDOC ---
ED HPI GENERAL MEDICAL PROBLEM - General Chief Complaint: Upper Extremity Injury/Pain Stated Complaint: FELL ON SHOULDER Time Seen by Provider: 10/01/18 22:50 Source of Information: Reports: Patient History Limitations: Reports: No Limitations - History of Present Illness INITIAL COMMENTS - FREE TEXT/NARRATIVE: 72-year-old female who reports that she slipped and fell on Tuesday of this last week, 09/27/2018, and landed on her back but mostly on her left back and she hit the posterior part of her shoulder on the left. She states that she did not have any pain at the time and was able to move her shoulder well without problems. However, the following day her shoulder was quite stiff and painful and she presented to the walk-in clinic where she had x-ray evaluation. That x- ray showed no evidence of fracture or malalignment of her components (she has had left reversed total shoulder replacement 2-3 months ago). She reports that she has been taking tramadol for her pain with some relief but the pain does seem to be getting worse with time. It seems to be more stiff and more painful with movement. She is scheduled to see her orthopedic surgeon on 10/04/2018. He presents tonight because she is having ongoing pain that she rates as an 8/10 and she only has one tramadol left at home. The pain as a sore and sharp pain that is worse with movement and with palpation. She has no neck pain. She has no back pain. She did not hit her head. There was no loss of consciousness. There are no other associated signs or symptoms. There are no other modifying factors. 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(s) (Tramadol but she is essentially out of this medication now) left shoulder Pain Score (Numeric/FACES): 8 - Related Data Allergies Allergy/AdvReac Type Severity Reaction Status Date / Time ciprofloxacin [From Cipro] Allergy Itching Verified 08/02/18 09:41 erythromycin base Allergy Hives Verified 08/02/18 09:41 [Erythromycin Base] ibuprofen Allergy Other Verified 08/20/18 13:18 Influenza Virus Vaccines Allergy Nausea and Verified 08/02/18 09:41 Vomiting Penicillins Allergy Hives Verified 08/02/18 09:41 Sulfa (Sulfonamide Allergy Hives Verified 08/02/18 09:41 Antibiotics) Tetracyclines Allergy Hives Verified 08/02/18 09:41 Home Meds: Home Meds Temazepam [Restoril] 30 mg PO BEDTIME 08/16/16 [History] Multivitamin [Multivitamins] 1 each PO DAILY 11/20/16 [History] Albuterol [Ventolin HFA] 90 mcg INH ASDIRECTED 06/22/18 [History] Fluticasone/Vilanterol [Breo Ellipta 100-25 MCG Inhalation Kit] 1 puff IH DAILY 08/02/18 [History] traMADol HCl [Tramadol HCl] 50 mg PO ASDIRECTED 10/01/18 [History] traMADol HCl [Tramadol HCl] 50 mg PO Q6H PRN #10 tablet 10/01/18 [Rx] Past Medical History HEENT History: Reports: Hard of Hearing, Impaired Vision, Otitis Media Other HEENT History: Deaf right ear. Cardiovascular History: Reports: Heart Failure, Heart Murmur, Hypertension Other Cardiovascular History: Irregular heart rhythm. Respiratory History: Reports: Other (See Below) Other Respiratory History: has spot on L lung, states is not CA. 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 Hx compession fracture to back T12 & L4&5. Neurological History: Reports: Neuropathy, Peripheral Other Neuro History: Bilateral peripheral neuropathy. Psychiatric History: Reports: Depression, Other (See Below) Other Psychiatric History: Insomnia. 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 Cochlear implant right removed due to staph infection. States she is deaf in right ear. GI Surgical History: Reports: Appendectomy, Bariatric Procedure, Cholecystectomy , Colonoscopy, EGD Other GI Surgeries/Procedures: gastric bypass x 2 Female Surgical History: Reports: Hysterectomy, Salpingo-Oophorectomy Musculoskeletal Surgical History: Reports: ORIF, Shoulder Replacement, Shoulder Surgery, Other (See Below) Other Musculoskeletal Surgeries/Procedures:: Bilateral rotator cuff. Bilat total shoulder replacement. Right hip pinning & removal. Left femur pinning. L wrist ORIF Social & Family History - Tobacco Use Smoking Status *Q: Never Smoker Second Hand Smoke Exposure: Yes - Caffeine Use Caffeine Use: Reports: Other Other Caffeine Use: states that she drinks gatorade at times. - Alcohol Use Alcohol Use History: No - Living Situation & Occupation Living situation: Reports: Alone Social History Comment: Presents via [employer]. Review of Systems - Review of Systems Review Of Systems: See Below Constitutional: Reports: No Symptoms Eyes: Reports: No Symptoms Ears: Reports: No Symptoms Nose: Reports: No Symptoms Mouth/Throat: Reports: No Symptoms Respiratory: Reports: No Symptoms Cardiovascular: Reports: No Symptoms GI/Abdominal: Reports: No Symptoms Genitourinary: Reports: No Symptoms Musculoskeletal: Reports: Shoulder Pain (Left) Skin: Reports: No Symptoms Neurological: Reports: No Symptoms ED EXAM, GENERAL - Physical Exam Exam: See Below Exam Limited By: No Limitations General Appearance: Alert, WD/WN, Mild Distress Eye Exam: Bilateral Eye: EOMI, Normal Inspection, PERRL Ears: Normal External Exam Ear Exam: Bilateral Ear: Auricle Normal Nose: Normal Inspection, Normal Mucosa, No Blood Throat/Mouth: Normal Inspection, Normal Lips, Normal Oropharynx, Normal Voice, No Airway Compromise Head: Atraumatic, Normocephalic Neck: Normal Inspection, Supple, Non-Tender, Full Range of Motion Respiratory/Chest: No Respiratory Distress, Lungs Clear, Normal Breath Sounds, No Accessory Muscle Use, Chest Non-Tender Cardiovascular: Normal Peripheral Pulses, Regular Rate, Rhythm, No JVD Peripheral Pulses: 4+: Radial (L), Radial (R) GI/Abdominal: Normal Bowel Sounds, Soft, Non-Tender, No Mass Back Exam: Normal Inspection Extremities: Normal Capillary Refill, Other (Tender to palpation around left shoulder. There is no crepitus. There is no redness or increased warmth. She does have some range of motion despite her pain.) Neurological: Alert, Oriented, CN II-XII Intact, Normal Cognition, No Motor/ Sensory Deficits Skin Exam: Warm, Dry, Intact, Normal Color, No Rash Course - Vital Signs Last Recorded V/S: Last Vital Signs Temp 37.3 C 10/01/18 22:46 Pulse 85 10/01/18 22:46 Resp 18 10/01/18 22:46 BP 164/89 H 10/01/18 22:46 Pulse Ox 98 10/01/18 22:46 - Orders/Labs/Meds Meds: Medications Discontinued Medications Generic Name Dose Route Start Last Admin Trade Name Freq PRN Reason Stop Dose Admin Tramadol HCl 100 mg 10/01/18 23:06 10/01/18 23:10 Ultram PO 10/01/18 23:07 100 mg ONETIME ONE Administration - Re-Assessments/Exams Free Text/Narrative Re-Assessment/Exam: 10/01/18 23:07: Patient with fall last week on back and left shoulder. She is status post left reverse shoulder replacement. She was seen in walk-in clinic on of last week and had an x-ray performed which showed no definite fracture and appropriate alignment of her components. She continues to have pain in her left shoulder and is scheduled to see her orthopedist in [place] on . She is having continued pain and only has one tramadol left at home. The patient was given tramadol 100 mg by mouth here in the emergency department and will be given a prescription for 10 additional 50 mg tablets. She has a sling at home that she can use for comfort and support as well until she can see her orthopedist on 10/04/2018. Departure - Departure Time of Disposition: 23:15 Disposition: Home, Self-Care 01 Condition: Good Clinical Impression: Left shoulder pain Qualifiers: Chronicity: unspecified Qualified Code(s): M25.512 - Pain in left shoulder Fall from standing Qualifiers: Encounter type: subsequent encounter Qualified Code(s): W19.XXXD - Unspecified fall, subsequent encounter - Discharge Information Prescriptions: traMADol HCl [Tramadol HCl] 50 mg PO Q6H PRN #10 tablet PRN Reason: Pain Instructions: Reverse Total Shoulder Replacement, Care After, Shoulder Pain, [id number] Referrals: PCP,None [Primary Care Provider] - Forms: ED Department Discharge Additional Instructions: The x-ray of your left shoulder showed no definite fracture from 09/28/2018. Keep your appointment with your orthopedic doctor on 10/04/2018. Medication as prescribed (tramadol 50 mg).
== END 2018-10-01 23:15 | disposition home or self-care (01) ==
LOC: FB.ED 22:46
DX: M25.512 Pain in left shoulder (principal); I11.0 Hypertensive heart disease with heart failure; I50.9 Heart failure, unspecified; F32.9 Major depressive disorder, single episode, unspecified; Z77.22 Contact with and (suspected) exposure to environmental tobacco smoke (acute) (chronic); Z79.899 Other long term (current) drug therapy; W18.39XA Other fall on same level, initial encounter; Z88.1 Allergy status to other antibiotic agents; Z88.0 Allergy status to penicillin; Z88.8 Allergy status to other drugs, medicaments and biological substances
CPT/HCPCS: 99283; A9270

== ENCOUNTER 2018-10-30 22:08 | Emergency (ER) | payer MEDICARE ==
[2018-10-30] MEDS ORDERED: Cyclobenzaprine 10 MG Tab PO ONE (22:09)
[2018-10-31] MEDS ORDERED: traMADol 50 MG Tab PO ONE (00:17)
--- NOTE | 2018-10-31 00:19 | EDM.PDOC ---
ED HPI GENERAL MEDICAL PROBLEM - General Chief Complaint: Genitourinary Problem Stated Complaint: BLADDER INFECTION Time Seen by Provider: 10/30/18 22:30 Source of Information: Reports: Patient History Limitations: Reports: No Limitations - History of Present Illness INITIAL COMMENTS - FREE TEXT/NARRATIVE: Patient presents with concern for ongoing urinary tract infection and low back pain. She states she has been fighting this since the middle of September and was most recently started on Omnicef (chosen because of multiple drug allergies) 2 days ago. She has had some low back pain which just has been getting worse and she is sitting at home with a heating pad all weekend. She denies fever, chills , sweats, nausea, vomiting, change in bowel habits. She reports burning on urination, urgency, and increased frequency. No vaginal symptoms. She has no history of urinary retention or other bladder issues that she is aware of. Has had complete hysterectomy. No diabetes, history of renal problem. Significant orthopeadic issues for which she has been on chronic opioids, including a total shoulder done a couple months ago. She reports mainly that she is unable to deal with the back pain any longer and ran out of Tramadol tonight. Is unable to take NSAIDs due to history of bleeding ulcers. Tylenol isn't helping. She has tried heat while sitting in her recliner, but nothing else. No recent falls or any other trauma. back Pain Score (Numeric/FACES): 8 - Related Data Allergies Allergy/AdvReac Type Severity Reaction Status Date / Time ciprofloxacin [From Cipro] Allergy Itching Verified 08/02/18 09:41 erythromycin base Allergy Hives Verified 08/02/18 09:41 [Erythromycin Base] ibuprofen Allergy Other Verified 08/20/18 13:18 Influenza Virus Vaccines Allergy Nausea and Verified 08/02/18 09:41 Vomiting ketorolac [From Toradol] Allergy Nausea and Verified 10/31/18 00:05 Vomiting Penicillins Allergy Hives Verified 08/02/18 09:41 Sulfa (Sulfonamide Allergy Hives Verified 08/02/18 09:41 Antibiotics) Tetracyclines Allergy Hives Verified 08/02/18 09:41 Home Meds: Home Meds Temazepam [Restoril] 30 mg PO BEDTIME 08/16/16 [History] Multivitamin [Multivitamins] 1 each PO DAILY 11/20/16 [History] Albuterol [Ventolin HFA] 90 mcg INH ASDIRECTED 06/22/18 [History] Fluticasone/Vilanterol [Breo Ellipta 100-25 MCG Inhalation Kit] 1 puff IH DAILY 08/02/18 [History] traMADol HCl [Tramadol HCl] 50 mg PO ASDIRECTED 10/01/18 [History] traMADol HCl [Tramadol HCl] 50 mg PO Q6H PRN #10 tablet 10/01/18 [Rx] Past Medical History HEENT History: Reports: Hard of Hearing, Impaired Vision, Otitis Media Other HEENT History: Deaf right ear. Cardiovascular History: Reports: Heart Failure, Heart Murmur, Hypertension Other Cardiovascular History: Irregular heart rhythm. Respiratory History: Reports: Other (See Below) Other Respiratory History: has spot on L lung, states is not CA. Gastrointestinal History: Reports: PUD Genitourinary History: Reports: Other (See Below) Other Genitourinary History: States recent UTI. 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 Hx compession fracture to back T12 & L4&5. Neurological History: Reports: Neuropathy, Peripheral Other Neuro History: Bilateral peripheral neuropathy. Psychiatric History: Reports: Depression, Other (See Below) Other Psychiatric History: Insomnia. Endocrine/Metabolic History: Reports: Obesity/BMI 30+, Osteoporosis Other Endocrine/Metabolic History: Denies diabetes. 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 Cochlear implant right removed due to staph infection. States she is deaf in right ear. GI Surgical History: Reports: Appendectomy, Bariatric Procedure, Cholecystectomy , Colonoscopy, EGD Other GI Surgeries/Procedures: gastric bypass x 2 Female Surgical History: Reports: Hysterectomy, Salpingo-Oophorectomy Musculoskeletal Surgical History: Reports: ORIF, Shoulder Replacement, Shoulder Surgery, Other (See Below) Other Musculoskeletal Surgeries/Procedures:: Bilateral rotator cuff. Bilat total shoulder replacement. Right hip pinning & removal. Left femur pinning. L wrist ORIF Social & Family History - Family History Family Medical History: Noncontributory - Tobacco Use Smoking Status *Q: Never Smoker Second Hand Smoke Exposure: No - Caffeine Use Caffeine Use: Reports: Other Other Caffeine Use: states that she takes powerade. - Alcohol Use Alcohol Use History: No - Recreational Drug Use Recreational Drug Use: No - Living Situation & Occupation Living situation: Reports: Alone ED ROS GENERAL - Review of Systems Review Of Systems: ROS reveals no pertinent complaints other than HPI. ED EXAM, GENERAL - Physical Exam Exam: See Below Free Text/Narrative:: General: alert, pleasant and no acute distress. Moves comfortably from chair onto bed, lying down and getting up again. Gait normal. Abdomen +bowel sounds , soft, nontender, no rebound or guarding, no suprapubic discomfort. Lungs clear, heart regular. Strength equal side to side. Back is tender over costovertebral angles, lower ribs, all across the bottom above pelvic girdle. Skin is without lesions, rashes, or wounds. Psych: mood and affect appropriate , makes good eye contact, answers questions appropriately. Course - Vital Signs Text/Narrative:: cultures from 2 days ago available - garcia sensitive e. coli. UA at that time showed +nitrites and leukocyte esterace. Will get CBC, repeat UA. I do not think abdominal labs needed, but will check renal function. Last Recorded V/S: Last Vital Signs Temp 37.1 C 10/30/18 22:10 Pulse 66 10/31/18 00:30 Resp 18 10/31/18 00:30 BP 127/48 L 10/31/18 00:30 Pulse Ox 98 10/31/18 00:30 - Orders/Labs/Meds Orders: Active Orders 24 hr Category Date Time Status Bladder Scan [RC] ASDIRECTED Care 10/30/18 23:35 Active Labs: Laboratory Tests 10/30/18 10/30/18 10/30/18 Range/Units 22:17 22:42 22:42 WBC 6.1 (4.5-12.0) X10-3/uL RBC 4.63 (3.23-5.20) x10(6)uL Hgb 12.8 (11.5-15.5) g/dL Hct 38.2 (30.0-51.3) % MCV 82.6 (80-96) fL MCH 27.7 (27.7-33.6) pg MCHC 33.5 (32.2-35.4) g/dL RDW 14.5 (11.5-15.5) % Plt Count 216 (125-369) X10(3)uL MPV 9.3 (7.4-10.4) fL Neut % (Auto) 61.0 (46-82) % Lymph % (Auto) 28.1 (13-37) % [place] % (Auto) 8.1 (4-12) % Eos % (Auto) 2 (1.0-5.0) % Baso % (Auto) 1 (0-2) % Neut # (Auto) 3.8 (1.6-8.3) # Lymph # (Auto) 1.7 (0.6-5.0) # [place] # (Auto) 0.5 (0.0-1.3) # Eos # (Auto) 0.1 (0.0-0.8) # Baso # (Auto) 0.0 (0.0-0.2) # Sodium 141 (135-145) mmol/L Potassium 4.1 (3.5-5.3) mmol/L Chloride 105 (100-110) mmol/L Carbon Dioxide 28 (21-32) mmol/L BUN 15 (7-18) mg/dL Creatinine 0.9 (0.55-1.02) mg/dL Est Cr Clr Drug Dosing TNP Estimated GFR (MDRD) > 60 (>60) BUN/Creatinine Ratio 16.7 (9-20) Glucose 108 (80-116) mg/dL Calcium 9.6 (8.6-10.2) mg/dL Urine Color Yellow (YELLOW) Urine Appearance Clear (CLEAR) Urine pH 6.0 (5.0-6.5) Ur Specific [place] 1.015 (1.010-1.025) Urine Protein Negative (NEGATIVE) mg/dL Urine Glucose (UA) Normal (NORMAL) mg/dL Urine Ketones Negative (NEGATIVE) mg/dL Urine Occult Blood Negative (NEGATIVE) Urine Nitrite Negative (NEGATIVE) Urine Bilirubin Negative (NEGATIVE) Urine Urobilinogen 0.2 (NEGATIVE) mg/dL Ur Leukocyte Esterase Negative (NEGATIVE) Urine RBC 0-5 (0-5) Urine WBC 0-5 (0-5) Ur Squamous Epith Cells Few H (NS,R,O) Urine Bacteria Rare H (NS) Meds: Medications Discontinued Medications Generic Name Dose Route Start Last Admin Trade Name Marychuy PRN Reason Stop Dose Admin Tramadol HCl 50 mg 10/31/18 00:17 10/31/18 00:24 Ultram PO 10/31/18 00:18 50 mg ONETIME ONE Administration - Re-Assessments/Exams Free Text/Narrative Re-Assessment/Exam: labs reviewed, UA now clean, CBC and BMP within normal limits. I discussed with patient I am not convinced her back pain is coming from a UTI, but offered imaging. She stated she wants to get home as a friend is waiting for her to give her a ride. Upon review of [facility] [place] ([place], [place], [place]), patient has received multiple opioid prescriptions from several different prescribers over the last many months. She is also on a benzodiazepene for sleep which is quite high risk, especially given her age. It seems that each of the individual prescriptions appear appropriate upon extensive chart review, but overall the pattern is concerning. I discussed with her frankly that I am not comfortable just giving her a refill of Tramadol tonight without further evaluation into the cause of her back pain, which she is not really interested in at this time. Since a friend brought her, we did give her one dose of Tramadol here to help with sleep. I also offered if she would like to try a small muscle relaxer, although this also has significant risks to it, and sent her with some flexeril to try. We did set up a renal ultrasound for the morning. She may also benefit from some spine imaging at this point, as I saw after discharge in her chart a history of compression fractures. Strongly encouraged to followup with PCP. Departure - Departure Time of Disposition: 00:17 Disposition: Home, Self-Care 01 Condition: Good Clinical Impression: UTI, Urinary tract infectious disease, Back pain - Discharge Information *PRESCRIPTION DRUG MONITORING PROGRAM REVIEWED*: Yes *COPY OF PRESCRIPTION DRUG MONITORING REPORT IN PATIENT MANUEL: Yes Instructions: Cyclobenzaprine tablets, Urinary Tract Infection, Adult Referrals: Mir Johnson MD [Primary Care Provider] - Forms: ED Department Discharge Additional Instructions: Someone will call you in the morning with your ultrasound time. If nobody calls by noon call [phone] may benefit from urodynamic studies to rule-out urinary retention given your ongoing tramadol use, especially combined with tenazepam, I would recommend considering a pain contract with PCP. - My Orders Last 24 Hours: My Active Orders 10/30/18 23:35 Bladder Scan [RC] ASDIRECTED - Assessment/Plan Last 24 Hours: My Active Orders 10/30/18 23:35 Bladder Scan [RC] ASDIRECTED
[2018-10-31 00:33] VITALS: BP 127/48; PULSE 66
== END 2018-10-31 00:30 | disposition home or self-care (01) ==
LOC: FB.ED 22:08
DX: N39.0 Urinary tract infection, site not specified (principal); I11.0 Hypertensive heart disease with heart failure; I50.9 Heart failure, unspecified; E66.9 Obesity, unspecified; Z68.39 Body mass index [BMI] 39.0-39.9, adult; Z86.2 Personal history of diseases of the blood and blood-forming organs and certain disorders involving the immune mechanism; Z88.1 Allergy status to other antibiotic agents; Z88.6 Allergy status to analgesic agent; Z88.0 Allergy status to penicillin; Z88.2 Allergy status to sulfonamides; Z88.7 Allergy status to serum and vaccine; Z79.899 Other long term (current) drug therapy
CPT/HCPCS: 36415; 51798; 80048; 81001; 85025; 99283; A9270

== ENCOUNTER 2019-01-23 07:19 | Day surgery (SDC) | payer MEDICARE ==
[~2019-01-23 07:19] MED LIST: Lactated Ringers 1,000 ML IV SCH; Sodium Chloride 0.9% 10 ML Syringe FLUSH PRN
[2019-01-23] MEDS ORDERED: Propofol 200 MG/20 ML SDV IV ONE (07:20)
[2019-01-23] MEDS ORDERED: Lidocaine 2% 5 ML SDV INJECT ONE (07:20)
--- NOTE | 2019-01-23 08:50 | PCM.OPNOTE ---
- General Post-Op/Procedure Note Date of Surgery/Procedure: 01/23/19 Operative Procedure(s): egd Findings: irritation of the gastric pouch questionable fistula Pre Op Diagnosis: epigatric abd pain Post-Op Diagnosis: irritation of the gastric pouch. questionable fistula Anesthesia Technique: MAC Primary Surgeon: Brian Lugo Anesthesia Provider: Maribell Causey Pathology: gastric bx Complications: None Condition: Good Free Text/Narrative:: see dictation
[2019-01-23] MEDS ORDERED: Iopamidol 755 Mg/ML 100 ML Bottle IV ONE (09:52)
[2019-01-23] MEDS ORDERED: Diatrizoate Meglumine/Diatrizoate Sodium 37% 30 ML Bottle PO ONE (09:52)
[2019-01-23 11:35] VITALS: BP 150/66; PULSE 75
--- NOTE | 2019-01-23 12:24 | OR ---
DATE OF OPERATION: 01/23/2019 SURGEON: Brian Lugo MD PROCEDURE PERFORMED: Upper endoscopy. PREOPERATIVE DIAGNOSIS: Epigastric abdominal pain, status post gastric bypass with revision. POSTOPERATIVE DIAGNOSIS: Apparent fistula pouch and pouchitis. INDICATIONS FOR PROCEDURE: This is a 73-year-old white female who has had a longstanding history of epigastric abdominal pain. She was offered and accepted an upper endoscopy. DESCRIPTION OF PROCEDURE: After an excellent IV sedation was administered, the bite block was inserted. The flexible endoscope was passed without difficulty down the patient's esophagus into the stomach. Stomach was insufflated and the pouch was evaluated. The scope was advanced down both branches of the Stacy limb. No marked abnormality was noted. On evaluating the pouch, there appears to be a small what appears to be a fistula along the lateral wall and there was some irritation noted in the mucosa. Photo and biopsies were taken. The esophagus was unremarkable. The stomach was deflated, scope was removed. The patient tolerated the procedure well. /[id number] /ABA
--- NOTE | 2019-01-23 13:00 | CT ---
INDICATION: Questionable fistula in gastric pouch on EGD. CT ABDOMEN WITH CONTRAST: Spiral 3.75 mm axial sections were obtained through the abdomen with oral and IV contrast (100 mL Isovue 370 at 1.5 mL/second) with sagittal and coronal reconstructions, 01/23/19, and compared with 07/01/13, which was obtained without contrast. Total exam DLP = 750.55 mGy-cm. Heavy markings are noted at the lung bases bilaterally, right greater than left , most likely fibrotic in nature, appearing similar to the previous study. There is a nodule, subpleural in location, at the left lung base - at the diaphragm posterolaterally, which now measures 9.2 mm in maximum diameter versus 7.5 mm on the previous examination - a definite increase in size is noted. This is a small solid nodule. It is relatively high in density with Hounsfield unit of 83 with contrast. It may represent a developing granuloma, although a neoplastic process cannot be entirely excluded. Followup is therefore recommended, especially if the patient is a significant smoker or, in this case, secondhand smoke for 12+ years. The heart is enlarged. No pericardial effusion was suggested at this time with the pericardium less prominent than on the previous study. Somewhat low density liver is noted, suggesting fatty liver. The gallbladder is absent, compatible with history of its removal. The common bile duct is normal in caliber for a post cholecystectomy patient. There is again noted a cystic mass, which appears to be simple, cystic in nature , arising from the upper pole posterolaterally of the right kidney and now measuring a maximum of approximately 68 mm, having increased in size compared with the previous study, where it measured 48 mm in the same AP projection approximately. No other renal mass was identified - no other renal pathology was suggested. The spleen appeared normal. The pancreas is extremely fatty replaced and barely visible. The adrenal glands appear similar to the previous study and likely are within normal limits. No retroperitoneal mass lesion was identified. There are some calcifications noted in the abdominal aorta. Evidence of gastric bypass surgery is noted with oral contrast in the gastric pouch and a small amount of oral contrast appearing to extend anteriorly from the left lateral suture line of the pouch into the gastric body area. There is an air fluid level in the gastric body. No extravasation into the intraperitoneal cavity is identified. In the distal gastric antrum, there appears to be mild thickening of the wall, which could be due to peptic ulcer disease but should be correlated clinically. No other mass lesions or free fluid collections were identified. No evidence of free air or bowel obstruction was seen. IMPRESSION: 1. Gastric bypass surgery is in evidence with a small amount of oral contrast appearing to extend into the gastric body from the gastric pouch along the left lateral anterior suture line - correlate clinically. No extravasation into the peritoneal cavity is noted. No free air is seen. 2. Increased size of a nodule at the left lower lung - lung base with relatively high density but not definitely calcified. Neoplasia cannot be excluded. Further workup may be warranted. 3. Enlarging size of a right renal cyst, which now measures 68 mm, compared to 48 mm on the previous examination of 2013. 4. Post cholecystectomy. 5. ASD/ASHD. 6. Fatty liver. Report faxed to Dr. Brian Lugo on 01/23/19 at 1305 hours. [facility]
== END 2019-01-23 11:17 | disposition home or self-care (01) ==
LOC: FB.SDS 07:19
PROVIDERS: ATTEND Surgery
DX: K29.30 Chronic superficial gastritis without bleeding (principal); K91.850 Pouchitis; K31.6 Fistula of stomach and duodenum; I11.0 Hypertensive heart disease with heart failure; I50.9 Heart failure, unspecified; M81.0 Age-related osteoporosis without current pathological fracture; M19.90 Unspecified osteoarthritis, unspecified site; E66.9 Obesity, unspecified; Z68.39 Body mass index [BMI] 39.0-39.9, adult; Z98.84 Bariatric surgery status; Z79.899 Other long term (current) drug therapy; Z88.0 Allergy status to penicillin; Z88.1 Allergy status to other antibiotic agents; Z88.2 Allergy status to sulfonamides; Z88.8 Allergy status to other drugs, medicaments and biological substances; Z88.6 Allergy status to analgesic agent; Z88.7 Allergy status to serum and vaccine
CPT/HCPCS: 36415; 74160; 80048; 88305; 88342; J2001; J2704; J7120; Q9963; Q9967

== ENCOUNTER 2019-02-03 01:45 | Emergency (ER) | payer MEDICARE ==
[2019-02-03] MEDS ORDERED: Promethazine 12.5 MG Supp RECTAL ONE (02:55)
--- NOTE | 2019-02-03 02:55 | EDM.PDOC ---
ED HPI GENERAL MEDICAL PROBLEM - General Chief Complaint: Abdominal Pain Stated Complaint: CHRONIC ABDOMINAL PAIN Time Seen by Provider: 02/03/19 02:48 Source of Information: Reports: Patient History Limitations: Reports: No Limitations - History of Present Illness INITIAL COMMENTS - FREE TEXT/NARRATIVE: Patient with h/o gastric bypass (1976, revision 1986) presents with epigastric pain x 1 month and N/V x [address] abd/pelvis (01/23/19) showed possible gastric fistula. EGD on 01/23/19 showed irritation of the gastric pouch, questionable fistula. Patient has a follow up appointment at [facility] on . She ran out of her Tramadol @ 12 hours ago which she uses to control her abdominal pain in combination with a PPI. Location: Reports: Abdomen Associated Symptoms: Reports: Nausea/Vomiting Middle Abdominal Pain Score (Numeric/FACES): 8 - Related Data Allergies Allergy/AdvReac Type Severity Reaction Status Date / Time ciprofloxacin [From Cipro] Allergy Itching Verified 01/23/19 07:45 erythromycin base Allergy Hives Verified 01/23/19 07:45 [Erythromycin Base] ibuprofen Allergy Other Verified 01/23/19 07:45 Influenza Virus Vaccines Allergy Nausea and Verified 01/23/19 07:45 Vomiting ketorolac [From Toradol] Allergy Nausea and Verified 01/23/19 07:45 Vomiting Penicillins Allergy Hives Verified 01/23/19 07:45 Sulfa (Sulfonamide Allergy Hives Verified 01/23/19 07:45 Antibiotics) Tetracyclines Allergy Hives Verified 01/23/19 07:45 Home Meds: Home Meds Temazepam [Restoril] 30 mg PO BEDTIME 08/16/16 [History] Multivitamin [Multivitamins] 1 tab PO DAILY 11/20/16 [History] Albuterol [Ventolin HFA] 1 puff INH Q4HR PRN 06/22/18 [History] Fluticasone/Vilanterol [Breo Ellipta 100-25 MCG Inhalation Kit] 1 puff INH DAILY 08/02/18 [History] Omeprazole Magnesium [Prilosec Otc] 20 mg PO ASDIRECTED 01/22/19 [History] Promethazine HCl 12.5 mg RC Q8H PRN #20 supp.rect 02/03/19 [Rx] traMADol HCl [Tramadol HCl] 50 mg PO TID PRN #20 tablet 02/03/19 [Rx] Past Medical History HEENT History: Reports: Cataract, Hard of Hearing, Other (See Below) Other HEENT History: DRY EYES Cardiovascular History: Reports: Heart Failure, Heart Murmur, Hypertension, Other (See Below) Other Cardiovascular History: AORTIC STENOSIS, ASCENDING AORTA DILATION, DIASTOLIC DYSFUNCTION, HEARTBEAT ABNORMALITY, PERIPHERAL VASCULAR DISEASE Respiratory History: Reports: Pneumonia, Recurrent, Other (See Below) Other Respiratory History: PULMONARY NODULE Gastrointestinal History: Reports: Other (See Below) Other Gastrointestinal History: CHOLECYSTECTOMY Genitourinary History: Reports: Other (See Below) Other Genitourinary History: States recent UTI. 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 Psychiatric History: Reports: Depression Other Psychiatric History: Insomnia. Endocrine/Metabolic History: Reports: Obesity/BMI 30+, Osteoporosis Other Endocrine/Metabolic History: IMPAIRED GLUCOSE TOLERANCE Hematologic History: Reports: Anemia Dermatologic History: Reports: Cellulitis - Infectious Disease History Infectious Disease History: Reports: Measles, Mumps Other Infectious Disease History: staff infection R ear, unsure if MRSA - Past Surgical History HEENT Surgical History: Reports: Cataract Surgery GI Surgical History: Reports: Appendectomy, Bariatric Procedure Other GI Surgeries/Procedures: GASTRIC AND INTESTINAL BYPASS Female Surgical History: Reports: Hysterectomy, Tubal Ligation Musculoskeletal Surgical History: Reports: Carpal Tunnel, Hip Replacement Other Musculoskeletal Surgeries/Procedures:: SHOULDER ARTHROPLASTY Social & Family History - Family History Family Medical History: Noncontributory HEENT: Reports: Glaucoma, Macular Degeneration Cardiac: Reports: Hypertension Endocrine/Metabolic: Reports: Diabetes Mellitus, Type 3c Oncologic: Reports: Brain, Colon, Lung Other Oncologic Family History: THROAT, LIVER, STOMACH - Caffeine Use Caffeine Use: Reports: None Other Caffeine Use: states that she takes powerade. - Alcohol Use Alcohol Use History: No - Living Situation & Occupation Living situation: Reports: Alone ED ROS GENERAL - Review of Systems Review Of Systems: Comprehensive ROS is negative, except as noted in HPI. ED EXAM, GI/ABD - Physical Exam Exam: See Below Exam Limited By: No Limitations General Appearance: Alert, WD/WN, No Apparent Distress Ears: Normal External Exam Throat/Mouth: Normal Inspection, No Airway Compromise Head: Atraumatic, Normocephalic Neck: Full Range of Motion Respiratory/Chest: No Respiratory Distress, Lungs Clear, Normal Breath Sounds Cardiovascular: Regular Rate, Rhythm, No Murmur GI/Abdominal Exam: Normal Bowel Sounds, Soft, No Distention, Tender (mild epigastric). No: Guarding, Rebound Extremities: Normal Range of Motion Neurological: Alert, No Motor/Sensory Deficits Psychiatric: Normal Affect, Normal Mood Skin Exam: Warm, Dry, Intact Course - Vital Signs Last Recorded V/S: Last Vital Signs Temp 36.5 C 02/03/19 01:55 Pulse 64 02/03/19 01:55 Resp 16 02/03/19 01:55 BP 158/64 H 02/03/19 01:55 Pulse Ox 97 02/03/19 01:55 - Orders/Labs/Meds Labs: Laboratory Tests 02/03/19 02/03/19 Range/Units 03:00 03:00 WBC 5.5 (4.5-12.0) X10-3/uL RBC 4.24 (3.23-5.20) x10(6)uL Hgb 10.6 L (11.5-15.5) g/dL Hct 33.4 (30.0-51.3) % MCV 78.8 L (80-96) fL MCH 24.9 L (27.7-33.6) pg MCHC 31.6 L (32.2-35.4) g/dL RDW 15.6 H (11.5-15.5) % Plt Count 214 (125-369) X10(3)uL MPV 9.0 (7.4-10.4) fL Neut % (Auto) 66.0 (46-82) % Lymph % (Auto) 23.6 (13-37) % [place] % (Auto) 8.6 (4-12) % Eos % (Auto) 1 (1.0-5.0) % Baso % (Auto) 1 (0-2) % Neut # (Auto) 3.6 (1.6-8.3) # Lymph # (Auto) 1.3 (0.6-5.0) # [place] # (Auto) 0.5 (0.0-1.3) # Eos # (Auto) 0.1 (0.0-0.8) # Baso # (Auto) 0.0 (0.0-0.2) # Sodium 142 (135-145) mmol/L Potassium 3.4 L (3.5-5.3) mmol/L Chloride 106 (100-110) mmol/L Carbon Dioxide 26 (21-32) mmol/L BUN 10 (7-18) mg/dL Creatinine 0.8 (0.55-1.02) mg/dL Est Cr Clr Drug Dosing 44.99 mL/min Estimated GFR (MDRD) > 60 (>60) BUN/Creatinine Ratio 12.5 (9-20) Glucose 93 (80-116) mg/dL Calcium 9.9 (8.6-10.2) mg/dL Total Bilirubin 0.8 (0.1-1.3) mg/dL AST 22 D (5-25) IU/L ALT 19 D (12-36) U/L Alkaline Phosphatase 109 (56-112) IU/L Total Protein 7.0 (6.0-8.0) g/dL Albumin 3.7 (3.2-4.6) g/dL Globulin 3.3 g/dL Albumin/Globulin Ratio 1.1 Amylase 22 L (25-115) U/L Meds: Medications Discontinued Medications Generic Name Dose Route Start Last Admin Trade Name Freq PRN Reason Stop Dose Admin Promethazine HCl 12.5 mg 02/03/19 02:55 02/03/19 03:16 Phenadoz RECTAL 02/03/19 02:56 12.5 mg ONETIME ONE Administration Tramadol HCl 50 mg 02/03/19 02:56 02/03/19 03:16 Ultram PO 02/03/19 02:57 50 mg ONETIME ONE Administration - Re-Assessments/Exams Free Text/Narrative Re-Assessment/Exam: 02/03/19 03:49 Symptoms improved after Tramadol 50mg PO and Phenergan 12.5mg VT. Departure - Departure Time of Disposition: 03:50 Disposition: Home, Self-Care 01 Condition: Good Clinical Impression: Chronic abdominal pain - Discharge Information *PRESCRIPTION DRUG MONITORING PROGRAM REVIEWED*: Yes *COPY OF PRESCRIPTION DRUG MONITORING REPORT IN PATIENT MANUEL: No Prescriptions: Promethazine HCl 12.5 mg RC Q8H PRN #20 supp.rect PRN Reason: Nausea/Vomiting traMADol HCl [Tramadol HCl] 50 mg PO TID PRN #20 tablet PRN Reason: Pain Referrals: Mir Johnson MD [Primary Care Provider] - Forms: ED Department Discharge Additional Instructions: Fill the prescriptions for Tramadol and Phenergan and take as directed. Keep you appointment with [facility] on 02/07/19. Return to the ER if symptoms worsen.
[2019-02-03] MEDS ORDERED: traMADol 50 MG Tab PO ONE (02:56)
[2019-02-03 05:01] VITALS: BP 132/64
[2019-02-03 05:02] VITALS: PULSE 64
== END 2019-02-03 04:35 | disposition home or self-care (01) ==
LOC: FB.ED 01:45
DX: R10.13 Epigastric pain (principal); G89.29 Other chronic pain; R11.2 Nausea with vomiting, unspecified; I11.0 Hypertensive heart disease with heart failure; I50.9 Heart failure, unspecified; E66.9 Obesity, unspecified; Z68.39 Body mass index [BMI] 39.0-39.9, adult; Z88.1 Allergy status to other antibiotic agents; Z88.7 Allergy status to serum and vaccine; Z88.0 Allergy status to penicillin; Z88.6 Allergy status to analgesic agent; Z98.84 Bariatric surgery status; Z88.2 Allergy status to sulfonamides; Z98.51 Tubal ligation status; Z79.899 Other long term (current) drug therapy; Z79.51 Long term (current) use of inhaled steroids; Z90.89 Acquired absence of other organs; Z90.710 Acquired absence of both cervix and uterus
CPT/HCPCS: 36415; 80053; 82150; 85025; 99284; A9270; 99283

== ENCOUNTER 2019-02-18 16:20 | Emergency (ER) | payer MEDICARE ==
[2019-02-18] MEDS ORDERED: traMADol 50 MG Tab PO ONE (16:21)
--- NOTE | 2019-02-18 17:07 | EDM.PDOC ---
ED HPI GENERAL MEDICAL PROBLEM - General Chief Complaint: Abdominal Pain Stated Complaint: pain in chest Time Seen by Provider: 02/18/19 16:30 Source of Information: Reports: Patient History Limitations: Reports: No Limitations - History of Present Illness INITIAL COMMENTS - FREE TEXT/NARRATIVE: c/o N, V, epigastric pain pt with gastric bypass twice, once in 1976, again in 1985 or 1986 for 2.5m had had N/V/epigastric pain EGD by Dr Lugo showed an internal fistula into pouch that [place] surgeon was d/ t doug pulling free ate turkey on 'giving 3d ago which she says "was a mistake" usually eats only yogurt and cottage cheese said she has not been able to keep down water or food today, her mouth is very dry sxs today are not new, all old h/o HF, no NM needs CV and pul clearance prior to repair of fistula denies CP, sob no lightheaded, no dizzy no f/c/d Epigastric pain Pain Score (Numeric/FACES): 9 - Related Data Allergies Allergy/AdvReac Type Severity Reaction Status Date / Time ciprofloxacin [From Cipro] Allergy Itching Verified 02/18/19 16:28 erythromycin base Allergy Hives Verified 02/18/19 16:28 [Erythromycin Base] ibuprofen Allergy Other Verified 02/18/19 16:28 Influenza Virus Vaccines Allergy Nausea and Verified 02/18/19 16:28 Vomiting ketorolac [From Toradol] Allergy Nausea and Verified 02/18/19 16:28 Vomiting Penicillins Allergy Hives Verified 02/18/19 16:28 Sulfa (Sulfonamide Allergy Hives Verified 02/18/19 16:28 Antibiotics) Tetracyclines Allergy Hives Verified 02/18/19 16:28 Home Meds: Home Meds Temazepam [Restoril] 30 mg PO BEDTIME 08/16/16 [History] Multivitamin [Multivitamins] 1 tab PO DAILY 11/20/16 [History] Albuterol [Ventolin HFA] 1 puff INH Q4HR PRN 06/22/18 [History] Fluticasone/Vilanterol [Breo Ellipta 100-25 MCG Inhalation Kit] 1 puff INH DAILY 08/02/18 [History] Omeprazole Magnesium [Prilosec Otc] 20 mg PO DAILY 01/22/19 [History] traMADol HCl [Tramadol HCl] 50 mg PO TID PRN #20 tablet 02/03/19 [Rx] Past Medical History HEENT History: Reports: Cataract, Hard of Hearing, Other (See Below) Other HEENT History: DRY EYES Cardiovascular History: Reports: Heart Failure, Heart Murmur, Hypertension, Other (See Below) Other Cardiovascular History: AORTIC STENOSIS, ASCENDING AORTA DILATION, DIASTOLIC DYSFUNCTION, HEARTBEAT ABNORMALITY, PERIPHERAL VASCULAR DISEASE Respiratory History: Reports: Pneumonia, Recurrent, Other (See Below) Other Respiratory History: PULMONARY NODULE Gastrointestinal History: Reports: GERD, Other (See Below) Other Gastrointestinal History: CHOLECYSTECTOMY Genitourinary History: Reports: Other (See Below) Other Genitourinary History: States recent UTI. 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 Psychiatric History: Reports: Depression Other Psychiatric History: Insomnia. Endocrine/Metabolic History: Reports: Obesity/BMI 30+, Osteoporosis Other Endocrine/Metabolic History: IMPAIRED GLUCOSE TOLERANCE Hematologic History: Reports: Anemia, Blood Transfusion(s) Dermatologic History: Reports: Cellulitis - Infectious Disease History Infectious Disease History: Reports: Measles, Mumps Other Infectious Disease History: staff infection R ear, unsure if MRSA - Past Surgical History HEENT Surgical History: Reports: Cataract Surgery GI Surgical History: Reports: Appendectomy, Bariatric Procedure, Cholecystectomy , Colonoscopy, EGD Other GI Surgeries/Procedures: GASTRIC AND INTESTINAL BYPASS Female Surgical History: Reports: Hysterectomy, Salpingo-Oophorectomy, Tubal Ligation Musculoskeletal Surgical History: Reports: Carpal Tunnel, Hip Replacement, ORIF , Shoulder Surgery Other Musculoskeletal Surgeries/Procedures:: bilat SHOULDER ARTHROPLASTY, ORIF to L wrist, pins removed, Social & Family History - Family History Family Medical History: Noncontributory HEENT: Reports: Glaucoma, Macular Degeneration Cardiac: Reports: Hypertension Endocrine/Metabolic: Reports: Diabetes Mellitus, Type 3c Oncologic: Reports: Brain, Colon, Lung Other Oncologic Family History: THROAT, LIVER, STOMACH - Tobacco Use Smoking Status *Q: Never Smoker - Caffeine Use Caffeine Use: Reports: None Other Caffeine Use: states that she takes powerade. - Recreational Drug Use Recreational Drug Use: No - Living Situation & Occupation Living situation: Reports: Alone ED ROS GENERAL - Review of Systems Review Of Systems: See Below Constitutional: Reports: No Symptoms HEENT: Reports: No Symptoms Respiratory: Reports: No Symptoms Cardiovascular: Reports: No Symptoms Endocrine: Reports: No Symptoms GI/Abdominal: Reports: Abdominal Pain, Nausea, Vomiting : Reports: No Symptoms Musculoskeletal: Reports: No Symptoms Skin: Reports: No Symptoms Neurological: Reports: No Symptoms Psychiatric: Reports: No Symptoms Hematologic/Lymphatic: Reports: No Symptoms Immunologic: Reports: No Symptoms ED EXAM, GENERAL - Physical Exam Exam: See Below Exam Limited By: No Limitations General Appearance: Alert, WD/WN, Mild Distress, Other (nonill) Ears: Normal External Exam Nose: Normal Inspection Throat/Mouth: Normal Inspection, Normal Lips, Normal Oropharynx, Normal Voice, No Airway Compromise, Other (mouth dry, no teeth) Head: Atraumatic, Normocephalic Neck: Normal Inspection, Supple, Non-Tender, Full Range of Motion Respiratory/Chest: No Respiratory Distress, Lungs Clear, Normal Breath Sounds, No Accessory Muscle Use, Chest Non-Tender Cardiovascular: Regular Rate, Rhythm, Other (trace pretib edema b/l, 2/6 YELENA at LSB, quiet precordium) GI/Abdominal: Normal Bowel Sounds, Soft, No Organomegaly, No Distention, Other ( 2+ epigastric tender only, NT elsewhere, good BS x r) Extremities: Normal Inspection, Normal Range of Motion, Non-Tender Neurological: Alert, Oriented, CN II-XII Intact, Normal Cognition, No Motor/ Sensory Deficits Psychiatric: Normal Affect, Normal Mood Skin Exam: Warm, Dry, Intact, Normal Color, No Rash, Other (mild dec'd turgor UE , no tenting) Lymphatic: No Adenopathy Course - Vital Signs Last Recorded V/S: Last Vital Signs Temp 36.3 C 02/18/19 16:20 Pulse 52 L 02/18/19 19:10 Resp 17 02/18/19 19:10 BP 136/77 02/18/19 19:10 Pulse Ox 95 02/18/19 19:10 - Orders/Labs/Meds Orders: Active Orders 24 hr Category Date Time Status Alum Hydroxide/Mag Hydroxide [Mag-Al Susp] 15 ml Med 02/18/19 18:49 Ordered Lidocaine 2% [Xylocaine 2% Viscous] 15 ml PO ONETIME Alum Hydroxide/Mag Hydroxide [Mag-Al Susp] 30 ml Med 02/18/19 16:55 Active Lidocaine 2% [Xylocaine 2% Viscous] 15 ml PO ONETIME Metoclopramide [Reglan] Med 02/18/19 16:58 Once 10 mg IVPUSH ONETIME ONE Morphine Med 02/18/19 16:59 Once 2 mg IVPUSH ONETIME ONE Sodium Chloride 0.9% [Normal Saline] 1,000 ml Med 02/18/19 16:55 Active IV .BOLUS Medication Orders Al Hydroxide/Mg Hydroxide 30 (ml/ Lidocaine HCl 15 ml) 0 ml PO ONETIME ONE Stop: 02/18/19 16:56 Last Admin: 02/18/19 17:50 Dose: 30 ml Al Hydroxide/Mg Hydroxide 15 (ml/ Lidocaine HCl 15 ml) 0 ml PO ONETIME ONE Stop: 02/18/19 18:50 Last Admin: 02/18/19 19:07 Dose: 30 ml Sodium Chloride (Normal Saline) 1,000 mls @ 999 mls/hr IV .BOLUS ONE Stop: 02/18/19 17:55 Last Admin: 02/18/19 17:53 Dose: 999 mls/hr Metoclopramide HCl (Reglan) 10 mg IVPUSH ONETIME ONE Stop: 02/18/19 16:59 Last Admin: 02/18/19 17:55 Dose: 10 mg Morphine Sulfate (Morphine) 2 mg IVPUSH ONETIME ONE Stop: 02/18/19 17:00 Last Admin: 02/18/19 17:58 Dose: 2 mg Labs: Laboratory Tests 02/18/19 02/18/19 02/18/19 Range/Units 17:15 17:15 17:15 WBC 6.1 (4.5-12.0) X10-3/uL RBC 4.99 (3.23-5.20) x10(6)uL Hgb 12.2 (11.5-15.5) g/dL Hct 38.7 (30.0-51.3) % MCV 77.6 L (80-96) fL MCH 24.5 L (27.7-33.6) pg MCHC 31.6 L (32.2-35.4) g/dL RDW 16.5 H (11.5-15.5) % Plt Count 262 (125-369) X10(3)uL MPV 9.7 (7.4-10.4) fL Neut % (Auto) 79.6 (46-82) % Lymph % (Auto) 14.2 (13-37) % [place] % (Auto) 5.0 (4-12) % Eos % (Auto) 1 (1.0-5.0) % Baso % (Auto) 0 (0-2) % Neut # (Auto) 4.9 (1.6-8.3) # Lymph # (Auto) 0.9 (0.6-5.0) # [place] # (Auto) 0.3 (0.0-1.3) # Eos # (Auto) 0.0 (0.0-0.8) # Baso # (Auto) 0.0 (0.0-0.2) # Sodium 144 (135-145) mmol/L Potassium 4.2 (3.5-5.3) mmol/L Chloride 107 (100-110) mmol/L Carbon Dioxide 28 (21-32) mmol/L BUN 12 (7-18) mg/dL Creatinine 0.8 (0.55-1.02) mg/dL Est Cr Clr Drug Dosing 44.99 mL/min Estimated GFR (MDRD) > 60 (>60) BUN/Creatinine Ratio 15.0 (9-20) Glucose 114 (80-116) mg/dL Calcium 9.9 (8.6-10.2) mg/dL Magnesium 1.9 (1.8-2.5) mg/dL Total Bilirubin 0.7 (0.1-1.3) mg/dL AST 29 H D (5-25) IU/L ALT 27 D (12-36) U/L Alkaline Phosphatase 121 H (56-112) IU/L Total Protein 7.7 (6.0-8.0) g/dL Albumin 4.0 (3.2-4.6) g/dL Globulin 3.7 g/dL Albumin/Globulin Ratio 1.1 Amylase 25 (25-115) U/L Meds: Medications Generic Name Dose Route Start Last Admin Trade Name Freq PRN Reason Stop Dose Admin Al Hydroxide/Mg Hydroxide 30 0 ml 02/18/19 16:55 02/18/19 17:50 ml/ Lidocaine HCl 15 ml PO 02/18/19 16:56 30 ml ONETIME ONE Administration Al Hydroxide/Mg Hydroxide 15 0 ml 02/18/19 18:49 02/18/19 19:07 ml/ Lidocaine HCl 15 ml PO 02/18/19 18:50 30 ml ONETIME ONE Administration Sodium Chloride 1,000 mls @ 999 mls/hr 02/18/19 16:55 02/18/19 17:53 Normal Saline IV 02/18/19 17:55 999 mls/hr .BOLUS ONE Administration Metoclopramide HCl 10 mg 02/18/19 16:58 02/18/19 17:55 Reglan IVPUSH 02/18/19 16:59 10 mg ONETIME ONE Administration Morphine Sulfate 2 mg 02/18/19 16:59 02/18/19 17:58 Morphine IVPUSH 02/18/19 17:00 2 mg ONETIME ONE Administration - Re-Assessments/Exams Free Text/Narrative Re-Assessment/Exam: 02/18/19 19:[address] Lugo showed fistula and minimal inflammation, no PUD pt taking 12 Tums/d, omeprazole 20 mg/d, says "sulcralfate does not work for me " would like a few tramadol at home, will give take home packet (8 tabs) has a pul appointment 03/02 to f/u a lung nodule that is getting bigger has a CV appointment at end feb pain much better after GI cocktail x 2, went from 9/10 to 7/10 to 5/10 altho actually appeared to be much less, abd became NT pt does seem to emphasize her symptoms to a greater degree than may actually occur, appeared mildly dehydrated altho pt stated she had not had anything eat or drink all day (which does not seem plausible), agreed to only one liter NS Departure - Departure Time of Disposition: 19:35 Disposition: Home, Self-Care 01 Condition: Good Clinical Impression: GERD (gastroesophageal reflux disease) - Discharge Information *PRESCRIPTION DRUG MONITORING PROGRAM REVIEWED*: Not Applicable *COPY OF PRESCRIPTION DRUG MONITORING REPORT IN PATIENT MANUEL: Not Applicable Instructions: Gastroesophageal Reflux Disease, Adult Referrals: Mir Johnson MD [Primary Care Provider] - Forms: ED Department Discharge Additional Instructions: Continue your omeprazole and Tums. Use your tablet for nausea from Dr Johnson as needed. For pain, take tramadol 50 mg 1 tab every 6 hours as needed. See Dr Johnson in 2-3 days. - My Orders Last 24 Hours: My Active Orders 02/18/19 16:55 Alum Hydroxide/Mag Hydroxide [Mag-Al Susp] 30 ml Lidocaine 2% [Xylocaine 2% Viscous] 15 ml PO ONETIME Sodium Chloride 0.9% [Normal Saline] 1,000 ml IV .BOLUS 02/18/19 16:58 Metoclopramide [Reglan] 10 mg IVPUSH ONETIME ONE 02/18/19 16:59 Morphine 2 mg IVPUSH ONETIME ONE 02/18/19 18:49 Alum Hydroxide/Mag Hydroxide [Mag-Al Susp] 15 ml Lidocaine 2% [Xylocaine 2% Viscous] 15 ml PO ONETIME - Assessment/Plan Last 24 Hours: My Active Orders 02/18/19 16:55 Alum Hydroxide/Mag Hydroxide [Mag-Al Susp] 30 ml Lidocaine 2% [Xylocaine 2% Viscous] 15 ml PO ONETIME Sodium Chloride 0.9% [Normal Saline] 1,000 ml IV .BOLUS 02/18/19 16:58 Metoclopramide [Reglan] 10 mg IVPUSH ONETIME ONE 02/18/19 16:59 Morphine 2 mg IVPUSH ONETIME ONE 02/18/19 18:49 Alum Hydroxide/Mag Hydroxide [Mag-Al Susp] 15 ml Lidocaine 2% [Xylocaine 2% Viscous] 15 ml PO ONETIME
[2019-02-18] MEDS: Alum Hydroxide/Mag Hydroxide 30 ML, Lidocaine 2% 15 ML PO ONE ×2 (17:50)
[2019-02-18] MEDS: Sodium Chloride 0.9% 1,000 ML IV ONE (17:53)
[2019-02-18] MEDS: Metoclopramide 10 MG/2 ML SDV IVPUSH ONE (17:55)
[2019-02-18] MEDS: Morphine 2 MG/ML Syringe IVPUSH ONE (17:58)
[2019-02-18] MEDS: Alum Hydroxide/Mag Hydroxide 15 ML, Lidocaine 2% 15 ML PO ONE ×2 (19:07)
[2019-02-18 19:12] VITALS: BP 136/77; PULSE 52
== END 2019-02-18 19:43 | disposition home or self-care (01) ==
LOC: FB.ED 16:20
DX: K21.9 Gastro-esophageal reflux disease without esophagitis (principal); I11.0 Hypertensive heart disease with heart failure; I50.9 Heart failure, unspecified; E66.9 Obesity, unspecified; Z88.1 Allergy status to other antibiotic agents; Z88.6 Allergy status to analgesic agent; Z88.0 Allergy status to penicillin; Z88.2 Allergy status to sulfonamides; Z79.899 Other long term (current) drug therapy; Z68.39 Body mass index [BMI] 39.0-39.9, adult
CPT/HCPCS: 36415; 80053; 82150; 83735; 85025; 96361; 96374; 96375; 99285; A9270; J2270; J2765; J7030

== ENCOUNTER 2019-03-17 18:32 | Emergency (ER) | payer MEDICARE ==
--- NOTE | 2019-03-17 19:28 | EDM.PDOC ---
ED HPI GENERAL MEDICAL PROBLEM - General Chief Complaint: Abdominal Pain Stated Complaint: ABD PAIN Time Seen by Provider: 03/17/19 19:20 Source of Information: Reports: Patient History Limitations: Reports: No Limitations - History of Present Illness INITIAL COMMENTS - FREE TEXT/NARRATIVE: 73-year-old female who has had ongoing problems with abdominal pain since December 2018. She had an EGD performed by Dr. 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 She reports that she is in the process of being evaluated for some type of revision of her gastric bypass. She reports that she has been on tramadol and hydrocodone for her pain by Dr. Johnson and she reports that since 03/15/2019, she as not gotten much relief of her pain with the tramadol or the hydrocodone and she has been having since after trying to take this medication. She has been able to take liquids and she has been able to take soft foods and tolerate that fairly well. Tonight , her pain is an 8-9/10 (it is sharp and burning) and she got no relief from her pain medications and reports that she did have vomiting 1. It was a small amount and there was no blood in the emesis. She reports that she's had normal bowel movements and she has been urinating normally without any problems. She has had no fevers. She has had no abdominal distention. No trauma to the area. The pain does seem to radiate from her epigastrium to her left upper quadrant and this has been the way the pain has been occurring since December. There are no other associated signs or symptoms. There are no other modifying factors. Onset: Other (Ongoing since December 2018) Duration: Getting Worse (Since 03/15/2019) Location: Reports: Abdomen Quality: Reports: Burning, Sharp Severity: Moderate (to severe) Improves with: Reports: None Worsens with: Reports: Other (Palpation) Context: Reports: Other (As above) Associated Symptoms: Reports: No Other Symptoms (Except as above) Treatments OUTPATIENT SCHEDULER: Reports: Other Medication(s) (Hydrocodone, tramadol) Left Upper Abdominal Pain Score (Numeric/FACES): 5 - Related Data Allergies Allergy/AdvReac Type Severity Reaction Status Date / Time ciprofloxacin [From Cipro] Allergy Itching Verified 02/18/19 16:28 erythromycin base Allergy Hives Verified 02/18/19 16:28 [Erythromycin Base] ibuprofen Allergy Other Verified 02/18/19 16:28 Influenza Virus Vaccines Allergy Nausea and Verified 02/18/19 16:28 Vomiting ketorolac [From Toradol] Allergy Nausea and Verified 02/18/19 16:28 Vomiting Penicillins Allergy Hives Verified 02/18/19 16:28 Sulfa (Sulfonamide Allergy Hives Verified 02/18/19 16:28 Antibiotics) Tetracyclines Allergy Hives Verified 02/18/19 16:28 Home Meds: Home Meds Temazepam [Restoril] 30 mg PO BEDTIME 08/16/16 [History] Multivitamin [Multivitamins] 1 tab PO DAILY 11/20/16 [History] Albuterol [Ventolin HFA] 1 puff INH Q4HR PRN 06/22/18 [History] Fluticasone/Vilanterol [Breo Ellipta 100-25 MCG Inhalation Kit] 1 puff INH DAILY 08/02/18 [History] Omeprazole Magnesium [Prilosec Otc] 20 mg PO DAILY 01/22/19 [History] traMADol HCl [Tramadol HCl] 50 mg PO TID PRN #20 tablet 02/03/19 [Rx] Hydrocodone/Acetaminophen [Hydrocodone-Acetaminophen Soln] 15 ml PO Q6H PRN # 180 ml 03/17/19 [Rx] Past Medical History HEENT History: Reports: Cataract, Hard of Hearing, Other (See Below) Other HEENT History: DRY EYES Cardiovascular History: Reports: Heart Failure, Heart Murmur, Hypertension, Other (See Below) Other Cardiovascular History: AORTIC STENOSIS, ASCENDING AORTA DILATION, DIASTOLIC DYSFUNCTION, HEARTBEAT ABNORMALITY, PERIPHERAL VASCULAR DISEASE Respiratory History: Reports: Pneumonia, Recurrent, Other (See Below) Other Respiratory History: PULMONARY NODULE Gastrointestinal History: Reports: GERD 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 Endocrine/Metabolic History: Reports: Obesity/BMI 30+, Osteoporosis Other Endocrine/Metabolic History: IMPAIRED GLUCOSE TOLERANCE Hematologic History: Reports: Anemia, Blood Transfusion(s) Dermatologic History: Reports: Cellulitis - Infectious Disease History Infectious Disease History: Reports: Measles, Mumps Other Infectious Disease History: staff infection R ear, unsure if MRSA - Past Surgical History HEENT Surgical History: Reports: Cataract Surgery GI Surgical History: Reports: Appendectomy, Bariatric Procedure, Cholecystectomy , Colonoscopy, EGD Other GI Surgeries/Procedures: GASTRIC AND INTESTINAL BYPASS Female Surgical History: Reports: Hysterectomy, Salpingo-Oophorectomy, Tubal Ligation Musculoskeletal Surgical History: Reports: Carpal Tunnel, Hip Replacement, ORIF , Shoulder Surgery Other Musculoskeletal Surgeries/Procedures:: bilat SHOULDER ARTHROPLASTY, ORIF to L wrist, pins removed, Social & Family History - Family History HEENT: Reports: Glaucoma, Macular Degeneration Cardiac: Reports: Hypertension Endocrine/Metabolic: Reports: Diabetes Mellitus, Type 3c Oncologic: Reports: Brain, Colon, Lung Other Oncologic Family History: THROAT, LIVER, STOMACH - Tobacco Use Smoking Status *Q: Never Smoker - Caffeine Use Caffeine Use: Reports: None Other Caffeine Use: states that she takes powerade. - Alcohol Use Alcohol Use History: Yes - Recreational Drug Use Recreational Drug Use: No - Living Situation & Occupation Living situation: Reports: Alone ED ROS GENERAL - Review of Systems Review Of Systems: See Below Constitutional: Reports: No Symptoms HEENT: Reports: No Symptoms Respiratory: Reports: No Symptoms Cardiovascular: Reports: No Symptoms GI/Abdominal: Reports: Abdominal Pain : Reports: No Symptoms Musculoskeletal: Reports: No Symptoms Skin: Reports: No Symptoms Neurological: Reports: No Symptoms Hematologic/Lymphatic: Reports: No Symptoms Immunologic: Reports: No Symptoms ED EXAM, GI/ABD - Physical Exam Exam: See Below Exam Limited By: No Limitations General Appearance: Alert, WD/WN, Mild Distress Eyes: Bilateral: Normal Appearance, EOMI Ears: Normal External Exam, Hearing Grossly Normal Nose: Normal Inspection, Normal Mucosa, No Blood Throat/Mouth: Normal Inspection, Normal Lips, Normal Oropharynx, Normal Voice Head: Atraumatic, Normocephalic Neck: Normal Inspection, Supple, Non-Tender, Full Range of Motion Respiratory/Chest: No Respiratory Distress, Lungs Clear, Normal Breath Sounds, No Accessory Muscle Use, Chest Non-Tender Cardiovascular: Normal Peripheral Pulses, Regular Rate, Rhythm, No JVD, No Murmur GI/Abdominal Exam: Normal Bowel Sounds, Soft, No Mass, Tender (In epigastrium and left upper quadrant.). No: Guarding, Rebound, Mass Back Exam: Normal Inspection. No: CVA Tenderness (R), CVA Tenderness (L) Extremities: Normal Inspection, Normal Range of Motion, Non-Tender, No Pedal Edema, Normal Capillary Refill Neurological: Alert, Oriented, CN II-XII Intact, Normal Cognition, No Motor/ Sensory Deficits Skin Exam: Warm, Dry, Intact, Normal Color Course - Vital Signs Last Recorded V/S: Last Vital Signs Temp 37.0 C 03/17/19 20:30 Pulse 62 03/17/19 20:30 Resp 17 03/17/19 20:30 BP 159/73 H 03/17/19 20:30 Pulse Ox 98 03/17/19 20:30 - Orders/Labs/Meds Meds: Medications Discontinued Medications Generic Name Dose Route Start Last Admin Trade Name Freq PRN Reason Stop Dose Admin Morphine Sulfate 10 mg 03/17/19 19:44 03/17/19 20:07 Morphine IM 03/17/19 19:45 10 mg ONETIME ONE Administration Promethazine HCl 25 mg 03/17/19 19:44 03/17/19 20:07 Phenergan IM 03/17/19 19:45 25 mg ONETIME ONE Administration - Re-Assessments/Exams Free Text/Narrative Re-Assessment/Exam: 03/17/19 19:40: Patient appears nontoxic. 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 She has been seen by a bariatric surgeon in [place] and is to have procedure performed in the future. She appears to be having an acute exacerbation of her chronic abdominal pain seen evidence of an acute problem at this time. The patient will be given morphine and Phenergan IM for her pain nausea. I will give her a prescription for hydrocodone liquid and she can use the Compazine suppositories that she has at home for nausea. He is to keep her follow-up appointment with Dr. Johnson on 03/20/2019 for GE further pain she was told to come back to the emergency department for an ability to keep liquids down, marked increase in her pain, fever or any other significant worsening symptoms. Departure - Departure Time of Disposition: 20:30 Disposition: Home, Self-Care 01 Condition: Good Clinical Impression: Abdominal pain, chronic, epigastric - Discharge Information Prescriptions: Hydrocodone/Acetaminophen [Hydrocodone-Acetaminophen Soln] 15 ml PO Q6H PRN # 180 ml PRN Reason: Moderate to severe pain Instructions: Abdominal Pain, Adult, [id number] Referrals: Mir Johnson MD [Primary Care Provider] - Forms: ED Department Discharge Additional Instructions: Your exam was reassuring. I suspect that at this point your abdominal pain represents an acute exacerbation of the pain related to and not a serious problem at this time. I have given you a prescription for hydrocodone liquid that you should get filled tomorrow and take as needed for your pain. You may also use the Compazine suppositories that you have for nausea. Keep your follow- up appointment with Dr. Johnson on 03/20/2019 as he would need to be the position to provide you with any further pain medications. Back to the emergency department for high fever, marked increase in your pain, unrelenting vomiting or any other concerning sign or symptom. Sepsis Event Note - Evaluation Sepsis Screening Result: No Definite Risk - Focused Exam Vital Signs: Vital Signs Temp Pulse Resp BP Pulse Ox 03/17/19 20:30 37.0 C 62 17 159/73 H 98 03/17/19 18:32 36.8 C 78 18 156/92 H 99 Date Exam was Performed: 03/17/19 Time Exam was Performed: 23:13
[2019-03-17] MEDS ORDERED: Morphine 10 MG/ML SDV IM ONE (19:44)
[2019-03-17] MEDS ORDERED: Promethazine 25 MG/ML SDV IM ONE (19:44)
[2019-03-17 21:26] VITALS: BP 159/73; PULSE 62
== END 2019-03-17 20:45 | disposition home or self-care (01) ==
LOC: FB.ED 18:32
DX: R10.13 Epigastric pain (principal); I10 Essential (primary) hypertension; K21.9 Gastro-esophageal reflux disease without esophagitis; E11.51 Type 2 diabetes mellitus with diabetic peripheral angiopathy without gangrene; E66.9 Obesity, unspecified; Z68.30 Body mass index [BMI] 30.0-30.9, adult; Z88.0 Allergy status to penicillin; Z88.1 Allergy status to other antibiotic agents; Z79.899 Other long term (current) drug therapy
CPT/HCPCS: 96372; 99283; J2270; J2550

== ENCOUNTER 2019-03-20 17:21 | Emergency (ER) | payer MEDICARE ==
[2019-03-20] MEDS ORDERED: Acetaminophen/oxyCODONE 325-5 MG Tab PO ONE (17:22)
[2019-03-20] MEDS ORDERED: hydrOXYzine HCl 50 MG/ML SDV IM ONE (18:01)
[2019-03-20] MEDS ORDERED: Morphine 10 MG/ML SDV IM ONE (18:01)
--- NOTE | 2019-03-20 18:08 | EDM.PDOC ---
ED HPI GENERAL MEDICAL PROBLEM - General Chief Complaint: Abdominal Pain Stated Complaint: ABD PAIN Time Seen by Provider: 03/20/19 18:03 Source of Information: Reports: Patient History Limitations: Reports: No Limitations - History of Present Illness INITIAL COMMENTS - FREE TEXT/NARRATIVE: 73 yo with chronic abdominal pain. She has a gastric fistula. She admits to abusing hydrocodone provided by Dr Johnson. "it is not working".She is not due to a refill.She further complains of depressed mood,unmotivated,nausea and decreased appetite Epigastric & LUQ Pain Score (Numeric/FACES): 9 - Related Data Allergies Allergy/AdvReac Type Severity Reaction Status Date / Time ciprofloxacin [From Cipro] Allergy Itching Verified 03/20/19 17:38 erythromycin base Allergy Hives Verified 03/20/19 17:38 [Erythromycin Base] ibuprofen Allergy Other Verified 03/20/19 17:38 Influenza Virus Vaccines Allergy Nausea and Verified 03/20/19 17:38 Vomiting ketorolac [From Toradol] Allergy Nausea and Verified 03/20/19 17:38 Vomiting Penicillins Allergy Hives Verified 03/20/19 17:38 Sulfa (Sulfonamide Allergy Hives Verified 03/20/19 17:38 Antibiotics) Tetracyclines Allergy Hives Verified 03/20/19 17:38 Home Meds: Home Meds Temazepam [Restoril] 30 mg PO BEDTIME 08/16/16 [History] Multivitamin [Multivitamins] 1 tab PO DAILY 11/20/16 [History] Albuterol [Ventolin HFA] 1 puff INH Q4HR PRN 06/22/18 [History] Fluticasone/Vilanterol [Breo Ellipta 100-25 MCG Inhalation Kit] 1 puff INH DAILY 08/02/18 [History] Omeprazole Magnesium [Prilosec Otc] 20 mg PO BEDTIME 01/22/19 [History] Hydrocodone/Acetaminophen [Hydrocodone-Acetaminophen Soln] 15 ml PO Q6H PRN # 180 ml 03/17/19 [Rx] Past Medical History HEENT History: Reports: Cataract, Hard of Hearing, Other (See Below) Other HEENT History: DRY EYES Cardiovascular History: Reports: Heart Failure, Heart Murmur, Hypertension, Other (See Below) Other Cardiovascular History: AORTIC STENOSIS, ASCENDING AORTA DILATION, DIASTOLIC DYSFUNCTION, HEARTBEAT ABNORMALITY, PERIPHERAL VASCULAR DISEASE Respiratory History: Reports: Pneumonia, Recurrent, Other (See Below) Other Respiratory History: PULMONARY NODULE Gastrointestinal History: Reports: GERD, Other (See Below) Other Gastrointestinal History: hx abdominal fistula Genitourinary History: Reports: Other (See Below) Other Genitourinary History: cyst on R kidney CONTRACT AGENT 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 Psychiatric History: Reports: Anxiety, Depression Other Psychiatric History: Insomnia. Endocrine/Metabolic History: Reports: Obesity/BMI 30+, Osteoporosis Other Endocrine/Metabolic History: IMPAIRED GLUCOSE TOLERANCE Hematologic History: Reports: Anemia, Blood Transfusion(s) Dermatologic History: Reports: Cellulitis - Infectious Disease History Infectious Disease History: Reports: Measles Other Infectious Disease History: staff infection R ear, unsure if MRSA - Past Surgical History HEENT Surgical History: Reports: Cataract Surgery GI Surgical History: Reports: Appendectomy, Bariatric Procedure, Cholecystectomy , Colonoscopy, EGD Other GI Surgeries/Procedures: GASTRIC AND INTESTINAL BYPASS Female Surgical History: Reports: Hysterectomy, Salpingo-Oophorectomy, Tubal Ligation Musculoskeletal Surgical History: Reports: Carpal Tunnel, Hip Replacement, ORIF , Shoulder Surgery Other Musculoskeletal Surgeries/Procedures:: bilat SHOULDER ARTHROPLASTY, ORIF to L wrist, pins removed, Social & Family History - Family History Family Medical History: Noncontributory HEENT: Reports: Glaucoma, Macular Degeneration Cardiac: Reports: Hypertension Endocrine/Metabolic: Reports: Diabetes Mellitus, Type 3c Oncologic: Reports: Brain, Colon, Lung Other Oncologic Family History: THROAT, LIVER, STOMACH - Tobacco Use Smoking Status *Q: Never Smoker - Caffeine Use Caffeine Use: Reports: None Other Caffeine Use: states that she takes powerade. - Recreational Drug Use Recreational Drug Use: No - Living Situation & Occupation Living situation: Reports: Alone ED ROS GENERAL - Review of Systems Review Of Systems: Comprehensive ROS is negative, except as noted in HPI. ED EXAM, GI/ABD - Physical Exam Exam: See Below Exam Limited By: Uncooperative General Appearance: Alert, WD/WN Throat/Mouth: Normal Inspection Respiratory/Chest: No Respiratory Distress Cardiovascular: Normal Peripheral Pulses GI/Abdominal Exam: Normal Bowel Sounds, Guarding, Rebound, Tender, Other ( Epgastric areaa). No: Distended Course - Vital Signs Last Recorded V/S: Last Vital Signs Temp 98.3 F 03/20/19 17:30 Pulse 81 03/20/19 17:30 Resp 20 03/20/19 17:30 BP 138/67 03/20/19 17:30 Pulse Ox 99 03/20/19 17:30 - Orders/Labs/Meds Meds: Medications Discontinued Medications Generic Name Dose Route Start Last Admin Trade Name Freq PRN Reason Stop Dose Admin Hydroxyzine HCl 50 mg 03/20/19 18:01 Vistaril IM 03/20/19 18:02 ONETIME ONE Morphine Sulfate 10 mg 03/20/19 18:01 Morphine IM 03/20/19 18:02 ONETIME ONE Departure - Departure Time of Disposition: 18:06 Disposition: Home, Self-Care 01 Clinical Impression: Abdominal pain, chronic, epigastric - Discharge Information Referrals: Mri Johnson MD [Primary Care Provider] - Sepsis Event Note - Evaluation Sepsis Screening Result: No Definite Risk - Focused Exam Vital Signs: Vital Signs Temp Pulse Resp BP Pulse Ox 03/20/19 17:30 98.3 F 81 20 138/67 99 Date Exam was Performed: 03/20/19 Time Exam was Performed: 18:03 - Problem List & Annotations (1) Narcotic abuse SNOMED Code(s): 69806515, 37903831 Code(s): F11.10 - OPIOID ABUSE, UNCOMPLICATED Status: Acute Current Visit : Yes (2) Abdominal pain, chronic, epigastric SNOMED Code(s): 82099181 Code(s): R10.13 - EPIGASTRIC PAIN; G89.29 - OTHER CHRONIC PAIN Status: Acute Current Visit: Yes - Problem List Review Problem List Initiated/Reviewed/Updated: Yes - Assessment/Plan Plan: I had a zuleika discussion with her. I suggest she weillhave to discuss with Dr Johnson about weaning off narcotics. I gave her Morphine 10 mg IM and Vistaril I will send Percocet 1 tab bid prn
[2019-03-20 18:18] VITALS: BP 127/63; PULSE 56
== END 2019-03-20 18:31 | disposition home or self-care (01) ==
LOC: FB.ED 17:21
DX: G89.29 Other chronic pain (principal); R10.13 Epigastric pain; I11.0 Hypertensive heart disease with heart failure; I50.9 Heart failure, unspecified; Z88.0 Allergy status to penicillin; Z88.2 Allergy status to sulfonamides; Z88.1 Allergy status to other antibiotic agents; Z79.899 Other long term (current) drug therapy
CPT/HCPCS: 96372; 99284; A9270; J2270; J3410; 99283

== ENCOUNTER 2019-04-29 13:29 | Emergency (ER) | payer MEDICARE ==
--- NOTE | 2019-04-29 13:43 | EDM.PDOC ---
ED HPI GENERAL MEDICAL PROBLEM - General Stated Complaint: VOMITTING Time Seen by Provider: 04/29/19 13:40 Source of Information: Reports: Patient History Limitations: Reports: No Limitations - History of Present Illness INITIAL COMMENTS - FREE TEXT/NARRATIVE: 73-year-old female with history of frequent vomiting and epigastric and left upper quadrant abdominal pain for quite some time. 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 She was referred to a bariatric surgeon in [place] and has been doing testing under her. There are no surgeries planned other than the which she has scheduled tomorrow morning to be done here at [facility] [place] by a director of category management from [place]. She reports that for the past 3 days she has had what she feels is increased vomiting is been unable to keep much of anything down and yesterday she reports she developed black stools and today with an episode of multiple vomiting (5), she had he felt was blood in her emesis. The pain is continually there and she rates that pain as an 8-9/10. I have seen the patient for similar problems in the past and her pain is in the same pattern that she is described at least for the past 4-5 months. She has had no fevers. She has had no chills. She states that she does feel somewhat weak but no syncope or presyncope. She does feel that she "loses her breath" when she has a vomiting spell but she has no difficulty breathing otherwise. She has been urinating normally. No nasal congestion. No cough. There are no other associated signs or symptoms. There are no other modifying factors. Onset: Other (Ongoing problems times seem worse over the past 3 days with black stools and questionable blood in emesis) Duration: Getting Worse Location: Reports: Abdomen Quality: Reports: Ache, Sharp Severity: Moderate (to severe) Improves with: Reports: Rest Worsens with: Reports: Eating, Other (Vomiting. Palpation.) Context: Reports: Other (As above) Associated Symptoms: Reports: Nausea/Vomiting, Shortness of Breath Treatments FOOD SERVICES MANAGER: Reports: Other (see below) Epigastric Pain Score (Numeric/FACES): 8 - Related Data Allergies Allergy/AdvReac Type Severity Reaction Status Date / Time ciprofloxacin [From Cipro] Allergy Itching Verified 03/20/19 17:38 erythromycin base Allergy Hives Verified 03/20/19 17:38 [Erythromycin Base] ibuprofen Allergy Other Verified 03/20/19 17:38 Influenza Virus Vaccines Allergy Nausea and Verified 03/20/19 17:38 Vomiting ketorolac [From Toradol] Allergy Nausea and Verified 03/20/19 17:38 Vomiting Penicillins Allergy Hives Verified 03/20/19 17:38 Sulfa (Sulfonamide Allergy Hives Verified 03/20/19 17:38 Antibiotics) Tetracyclines Allergy Hives Verified 03/20/19 17:38 Home Meds: Home Meds Temazepam [Restoril] 30 mg PO BEDTIME 08/16/16 [History] Multivitamin [Multivitamins] 1 tab PO DAILY 11/20/16 [History] Albuterol [Ventolin HFA] 1 puff INH Q4HR PRN 06/22/18 [History] Fluticasone/Vilanterol [Breo Ellipta 100-25 MCG Inhalation Kit] 1 puff INH DAILY PRN 08/02/18 [History] Omeprazole Magnesium [Prilosec Otc] 20 mg PO BEDTIME 01/22/19 [History] Past Medical History HEENT History: Reports: Cataract, Hard of Hearing, Other (See Below) Other HEENT History: DRY EYES Cardiovascular History: Reports: Heart Failure, Heart Murmur, Hypertension, Other (See Below) Other Cardiovascular History: AORTIC STENOSIS, ASCENDING AORTA DILATION, DIASTOLIC DYSFUNCTION, HEARTBEAT ABNORMALITY, PERIPHERAL VASCULAR DISEASE Respiratory History: Reports: Pneumonia, Recurrent, Other (See Below) Other Respiratory History: PULMONARY NODULE Gastrointestinal History: Reports: GERD, Other (See Below) Other Gastrointestinal History: hx abdominal fistula Genitourinary History: Reports: Other (See Below) Other Genitourinary History: cyst on R kidney Other CLINICAL ACCOUNT LIAISON History: Musculoskeletal History: Reports: Arthritis, Fracture, Osteoporosis Other Musculoskeletal History: LUMBAGO, hx fx R hip, L femur, L wrist, Neurological History: Reports: Neuropathy, Peripheral Other Neuro History: Bilateral peripheral neuropathy. Psychiatric History: Reports: Anxiety, Depression Other Psychiatric History: Insomnia. Endocrine/Metabolic History: Reports: Obesity/BMI 30+, Osteoporosis Other Endocrine/Metabolic History: IMPAIRED GLUCOSE TOLERANCE Hematologic History: Reports: Anemia, Blood Transfusion(s) Dermatologic History: Reports: Cellulitis - Infectious Disease History Infectious Disease History: Reports: Measles Other Infectious Disease History: staff infection R ear, unsure if MRSA - Past Surgical History HEENT Surgical History: Reports: Cataract Surgery GI Surgical History: Reports: Appendectomy, Bariatric Procedure (Gastric bypass with redo procedure approximately 10 years later.), Cholecystectomy, Colonoscopy , EGD Female Surgical History: Reports: Hysterectomy, Salpingo-Oophorectomy, Tubal Ligation Musculoskeletal Surgical History: Reports: Carpal Tunnel, Hip Replacement, ORIF , Shoulder Surgery Other Musculoskeletal Surgeries/Procedures:: bilat SHOULDER ARTHROPLASTY, ORIF to L wrist, pins removed, Social & Family History - Family History Family Medical History: Noncontributory HEENT: Reports: Glaucoma, Macular Degeneration Cardiac: Reports: Hypertension Endocrine/Metabolic: Reports: Diabetes Mellitus, Type 3c Oncologic: Reports: Brain, Colon, Lung Other Oncologic Family History: THROAT, LIVER, STOMACH - Tobacco Use Smoking Status *Q: Unknown Ever Smoked (Nonsmoker) - Caffeine Use Caffeine Use: Reports: None Other Caffeine Use: states that she takes powerade. - Alcohol Use Alcohol Use History: No - Living Situation & Occupation Living situation: Reports: Alone ED ROS GENERAL - Review of Systems Review Of Systems: See Below Constitutional: Reports: No Symptoms HEENT: Reports: No Symptoms Respiratory: Reports: Shortness of Breath Cardiovascular: Reports: No Symptoms GI/Abdominal: Reports: Abdominal Pain, Black Stool, Hematemesis (??), Nausea, Vomiting : Reports: No Symptoms Musculoskeletal: Reports: No Symptoms Skin: Reports: No Symptoms Neurological: Reports: No Symptoms Psychiatric: Reports: Anxiety Hematologic/Lymphatic: Reports: No Symptoms Immunologic: Reports: No Symptoms ED EXAM, GI/ABD - Physical Exam Exam: See Below Exam Limited By: No Limitations General Appearance: Alert, Anxious, Mild Distress, Obese Eyes: Bilateral: Normal Appearance, EOMI Ears: Normal External Exam, Hearing Grossly Normal Nose: Normal Inspection, Normal Mucosa, No Blood Throat/Mouth: Normal Inspection, Normal Lips, Normal Oropharynx, Normal Voice, No Airway Compromise, Other (Mucous membranes appear to be moist.) Head: Atraumatic Neck: Normal Inspection, Supple, Non-Tender, Full Range of Motion Respiratory/Chest: No Respiratory Distress, Lungs Clear, Normal Breath Sounds, No Accessory Muscle Use, Chest Non-Tender Cardiovascular: Normal Peripheral Pulses, Regular Rate, Rhythm, No Murmur GI/Abdominal Exam: Normal Bowel Sounds, Soft, No Mass, Tender (And left upper quadrant and epigastrium.). No: Rigid, Hernia Rectal (Female) Exam: Normal Exam, Normal Rectal Tone Back Exam: Normal Inspection Extremities: Normal Inspection, Normal Range of Motion, Non-Tender, No Pedal Edema, Normal Capillary Refill Neurological: Alert, Oriented, CN II-XII Intact, Normal Cognition, No Motor/ Sensory Deficits Psychiatric: Anxious Skin Exam: Warm, Dry, Intact, Normal Color, No Rash Course - Vital Signs Last Recorded V/S: Last Vital Signs Temp 37.5 C 04/29/19 15:53 Pulse 76 04/29/19 15:53 Resp 18 04/29/19 15:53 BP 145/95 H 04/29/19 15:53 Pulse Ox 99 04/29/19 15:53 Orthostatic Blood Pressure [ 93/43 Standing] Orthostatic Blood Pressure [ 101/50 Sitting] Orthostatic Blood Pressure [ 105/64 Supine] - Orders/Labs/Meds Orders: Active Orders 24 hr Category Date Time Status Orthostatic Vital Signs [RC] ONETIME Care 04/29/19 14:04 Active Peripheral IV Insertion Adult [OM.PC] Routine Oth 04/29/19 15:02 Ordered Labs: Laboratory Tests 04/29/19 04/29/19 04/29/19 Range/Units 14:30 14:30 14:30 WBC 11.1 (4.5-12.0) X10-3/uL RBC 4.11 (3.23-5.20) x10(6)uL Hgb 10.3 L (11.5-15.5) g/dL Hct 31.6 (30.0-51.3) % MCV 76.7 L (80-96) fL MCH 25.0 L (27.7-33.6) pg MCHC 32.5 (32.2-35.4) g/dL RDW 19.9 H (11.5-15.5) % Plt Count 291 (125-369) X10(3)uL MPV 9.9 (7.4-10.4) fL Neut % (Auto) 84.4 H (46-82) % Lymph % (Auto) 11.0 L (13-37) % [place] % (Auto) 4.0 (4-12) % Eos % (Auto) 0 L (1.0-5.0) % Baso % (Auto) 0 (0-2) % Neut # (Auto) 9.5 H (1.6-8.3) # Lymph # (Auto) 1.2 (0.6-5.0) # [place] # (Auto) 0.4 (0.0-1.3) # Eos # (Auto) 0.0 (0.0-0.8) # Baso # (Auto) 0.0 (0.0-0.2) # Sodium 145 (135-145) mmol/L Potassium 4.8 (3.5-5.3) mmol/L Chloride 108 (100-110) mmol/L Carbon Dioxide 26 (21-32) mmol/L BUN 27 H D (7-18) mg/dL Creatinine 1.1 H (0.55-1.02) mg/dL Est Cr Clr Drug Dosing 32.72 mL/min Estimated GFR (MDRD) 49 L (>60) BUN/Creatinine Ratio 24.5 H (9-20) Glucose 138 H (80-116) mg/dL Calcium 8.9 (8.6-10.2) mg/dL Magnesium 1.6 L (1.8-2.5) mg/dL Total Bilirubin 0.8 (0.1-1.3) mg/dL AST 18 D (5-25) IU/L ALT 27 (12-36) U/L Alkaline Phosphatase 87 (56-112) IU/L Total Protein 6.7 (6.0-8.0) g/dL Albumin 3.6 (3.2-4.6) g/dL Globulin 3.1 g/dL Albumin/Globulin Ratio 1.2 Lipase 34 L (73-393) U/L Meds: Medications Discontinued Medications Generic Name Dose Route Start Last Admin Trade Name Freq PRN Reason Stop Dose Admin Sodium Chloride 1,000 mls @ 999 mls/hr 04/29/19 15:02 04/29/19 15:50 Normal Saline IV 04/29/19 16:02 999 mls/hr .BOLUS ONE Administration Sodium Chloride 1,000 mls @ 125 mls/hr 04/29/19 16:30 04/29/19 16:47 Normal Saline IV 125 mls/hr ASDIRECTED ED Administration Ondansetron HCl 4 mg 04/29/19 15:02 04/29/19 15:50 Zofran IVPUSH 04/29/19 15:03 4 mg ONETIME ONE Administration Pantoprazole Sodium 80 mg 04/29/19 15:02 04/29/19 15:50 Protonix Iv IVPUSH 04/29/19 15:03 80 mg .BOLUS ONE Administration Sodium Chloride 10 ml 04/29/19 15:02 Saline Flush FLUSH ASDIRECTED PRN Keep Vein Open - Re-Assessments/Exams Free Text/Narrative Re-Assessment/Exam: 04/29/19 15:40: Patient did have orthostatic changes between lying and standing and she was symptomatically orthostatic with some dizziness. Her hemoglobin was also decreased from 12.1 to 10.3 today. Her Gastroccult and Hemoccult were both positive as well. She appears to be having an upper GI bleed and it is related most probably to her gastric bypass and potentially secondary to a problem with the enteric fistula associated with the gastric bypass as well. She will need admission for this and she will potentially need services which are not available at [facility] [place] (the patient was referred to Dr. Regan at [facility] in [place] as our surgeons felt the patient would need a bariatric surgery specialty services.) and therefore she will need transfer for this. I discussed this with the patient me to discuss her case with the doctors at [facility] in [place]. The patient is receiving normal saline IV as a bolus and I will keep the patient nothing by mouth. I have also given the patient Protonix 80 mg IV and Zofran 4 mg IV. 04/29/19 16:21: I discussed the patient's case with Dr. Huitron, hospitalist at [facility] in [place], he has agreed to accept the patient in transfer. The patient will be transferred via [facility] ambulance [facility] for direct admission. The patient is in agreement with the plans for transfer. Departure - Departure Time of Disposition: 17:55 Disposition: DC/Tfer to Acute Hospital 02 Condition: Fair (Guarded) Clinical Impression: Upper GI hemorrhage, Acute blood loss anemia, Entero-enteric fistula - Discharge Information Referrals: Mir Johnson MD [Primary Care Provider] - Forms: ED Department Discharge Sepsis Event Note - Focused Exam Vital Signs: Vital Signs Temp Pulse Resp BP Pulse Ox 04/29/19 15:53 37.5 C 76 18 145/95 H 99 04/29/19 13:39 37.2 C 85 18 119/98 H 100 Date Exam was Performed: 04/29/19 Time Exam was Performed: 20:20 - My Orders Last 24 Hours: My Active Orders 04/29/19 14:04 Orthostatic Vital Signs [RC] ONETIME 04/29/19 15:02 Peripheral IV Insertion Adult [OM.PC] Routine - Assessment/Plan Last 24 Hours: My Active Orders 04/29/19 14:04 Orthostatic Vital Signs [RC] ONETIME 04/29/19 15:02 Peripheral IV Insertion Adult [OM.PC] Routine
[2019-04-29] MEDS ORDERED: Pantoprazole 40 MG Vial IVPUSH ONE (15:02)
[2019-04-29] MEDS ORDERED: Sodium Chloride 0.9% 1,000 ML IV ONE (15:02)
[2019-04-29] MEDS ORDERED: Ondansetron 4 MG/2 ML SDV IVPUSH ONE (15:02)
[2019-04-29] MEDS ORDERED: Sodium Chloride 0.9% 10 ML Syringe FLUSH PRN (15:02)
[2019-04-29 15:53] VITALS: BP 145/95; PULSE 76
[2019-04-29] MEDS ORDERED: Sodium Chloride 0.9% 1,000 ML IV SCH (16:30)
== END 2019-04-29 17:55 ==
LOC: FB.ED 13:29
DX: K63.2 Fistula of intestine (principal); K92.2 Gastrointestinal hemorrhage, unspecified; D62 Acute posthemorrhagic anemia; K21.9 Gastro-esophageal reflux disease without esophagitis; I11.0 Hypertensive heart disease with heart failure; I50.9 Heart failure, unspecified; E66.9 Obesity, unspecified; Z68.38 Body mass index [BMI] 38.0-38.9, adult; Z88.1 Allergy status to other antibiotic agents; Z88.6 Allergy status to analgesic agent; Z88.0 Allergy status to penicillin; Z88.2 Allergy status to sulfonamides; Z88.7 Allergy status to serum and vaccine; Z79.899 Other long term (current) drug therapy
CPT/HCPCS: 36415; 80053; 82271; 82272; 83690; 83735; 85025; 96361; 96374; 96375; 99285; C9113; J2405; J7030

== ENCOUNTER 2019-05-11 13:18 | Emergency (ER) | payer MEDICARE ==
[2019-05-11] MEDS ORDERED: Sodium Chloride 0.9% 10 ML Syringe FLUSH PRN (13:42)
[2019-05-11] MEDS ORDERED: Pantoprazole 40 MG Vial IVPUSH ONE (13:43)
--- NOTE | 2019-05-11 13:55 | EDM.PDOC ---
ED HPI GENERAL MEDICAL PROBLEM - General Chief Complaint: Abdominal Pain Stated Complaint: STOMACH PAINS, THROWING UP Time Seen by Provider: 05/11/19 13:44 Source of Information: Reports: Patient History Limitations: Reports: No Limitations - History of Present Illness INITIAL COMMENTS - FREE TEXT/NARRATIVE: Patient is s/p loop gastric bypass , revised to a Stacy-en-Y. Recently diagnosed with an enteric fistula. Was transferred to [facility] on 04/29/19 for a GI bleed due to a duodenal ulcer, she was transfused one unit PRBC and discharged on Misoprostol, Omeprazole and Sucrasulfate. Since yesterday morning she states that pills and food are getting stuck in her lower esophagus , which results in emesis. She able to drink fluids without difficulty. Patient complains of epigastric pain, which is chronic. She states she only has 2 tablets of Tramadol left, requests prescription for Hydrodocone. Tramadol 50mg # 56 was prescribed on 05/02/19. Patient has been taking extra doses because she has been vomiting up the medication intermittently. Hemoglobin was 9.9 on . Onset Date: 05/10/19 Location: Reports: Abdomen Abdominal Pain Score (Numeric/FACES): 6 - Related Data Allergies Allergy/AdvReac Type Severity Reaction Status Date / Time ciprofloxacin [From Cipro] Allergy Itching Verified 03/20/19 17:38 erythromycin base Allergy Hives Verified 03/20/19 17:38 [Erythromycin Base] ibuprofen Allergy Other Verified 03/20/19 17:38 Influenza Virus Vaccines Allergy Nausea and Verified 03/20/19 17:38 Vomiting ketorolac [From Toradol] Allergy Nausea and Verified 03/20/19 17:38 Vomiting Penicillins Allergy Hives Verified 03/20/19 17:38 Sulfa (Sulfonamide Allergy Hives Verified 03/20/19 17:38 Antibiotics) Tetracyclines Allergy Hives Verified 03/20/19 17:38 Home Meds: Home Meds Temazepam [Restoril] 30 mg PO BEDTIME 08/16/16 [History] Multivitamin [Multivitamins] 1 tab PO DAILY 11/20/16 [History] Albuterol [Ventolin HFA] 1 puff INH Q4HR PRN 06/22/18 [History] Fluticasone/Vilanterol [Breo Ellipta 100-25 MCG Inhalation Kit] 1 puff INH DAILY PRN 08/02/18 [History] Omeprazole Magnesium [Prilosec Otc] 20 mg PO BID 01/22/19 [History] Sucralfate 1 gm PO QID 05/11/19 [History] miSOPROStoL [Misoprostol] 200 mcg PO BID 05/11/19 [History] traMADol HCl [Tramadol HCl] 50 mg PO Q6H PRN #10 tablet 05/11/19 [Rx] Past Medical History HEENT History: Reports: Cataract, Hard of Hearing, Other (See Below) Other HEENT History: DRY EYES Cardiovascular History: Reports: Heart Failure, Heart Murmur, Hypertension, Other (See Below) Other Cardiovascular History: AORTIC STENOSIS, ASCENDING AORTA DILATION, DIASTOLIC DYSFUNCTION, HEARTBEAT ABNORMALITY, PERIPHERAL VASCULAR DISEASE Respiratory History: Reports: Pneumonia, Recurrent, Other (See Below) Other Respiratory History: PULMONARY NODULE Gastrointestinal History: Reports: GERD, Other (See Below) Other Gastrointestinal History: hx abdominal fistula Genitourinary History: Reports: Other (See Below) Other Genitourinary History: cyst on R kidney PLEASURE CRAFT SAILOR 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 Psychiatric History: Reports: Anxiety, Depression Other Psychiatric History: Insomnia. Endocrine/Metabolic History: Reports: Obesity/BMI 30+, Osteoporosis Other Endocrine/Metabolic History: IMPAIRED GLUCOSE TOLERANCE Hematologic History: Reports: Anemia, Blood Transfusion(s) Dermatologic History: Reports: Cellulitis - Infectious Disease History Infectious Disease History: Reports: Measles Other Infectious Disease History: staff infection R ear, unsure if MRSA - Past Surgical History HEENT Surgical History: Reports: Cataract Surgery GI Surgical History: Reports: Appendectomy, Bariatric Procedure (Gastric bypass with redo procedure approximately 10 years later.), Cholecystectomy, Colonoscopy , EGD Female Surgical History: Reports: Hysterectomy, Salpingo-Oophorectomy, Tubal Ligation Musculoskeletal Surgical History: Reports: Carpal Tunnel, Hip Replacement, ORIF , Shoulder Surgery Other Musculoskeletal Surgeries/Procedures:: bilat SHOULDER ARTHROPLASTY, ORIF to L wrist, pins removed, Social & Family History - Family History Family Medical History: Noncontributory HEENT: Reports: Glaucoma, Macular Degeneration Cardiac: Reports: Hypertension Endocrine/Metabolic: Reports: Diabetes Mellitus, Type 3c Oncologic: Reports: Brain, Colon, Lung Other Oncologic Family History: THROAT, LIVER, STOMACH - Caffeine Use Caffeine Use: Reports: None Other Caffeine Use: states that she takes powerade. - Living Situation & Occupation Living situation: Reports: Alone ED ROS GENERAL - Review of Systems Review Of Systems: Comprehensive ROS is negative, except as noted in HPI. ED EXAM, GI/ABD - Physical Exam Exam: See Below Exam Limited By: No Limitations General Appearance: Alert, WD/WN, No Apparent Distress Nose: Normal Inspection Throat/Mouth: No Airway Compromise Head: Atraumatic, Normocephalic Neck: Full Range of Motion Respiratory/Chest: No Respiratory Distress, Lungs Clear, Normal Breath Sounds Cardiovascular: Regular Rate, Rhythm, No Murmur GI/Abdominal Exam: Normal Bowel Sounds, Soft, No Distention, Tender (epigastric) . No: Guarding Back Exam: Full Range of Motion Extremities: Normal Range of Motion Neurological: Alert, Normal Cognition Psychiatric: Normal Affect, Normal Mood Skin Exam: Warm, Dry, Intact Course - Vital Signs Last Recorded V/S: Last Vital Signs Temp 36.6 C 05/11/19 16:39 Pulse 74 05/11/19 16:39 Resp 18 05/11/19 16:39 BP 121/59 L 05/11/19 16:39 Pulse Ox 99 05/11/19 16:39 - Orders/Labs/Meds Orders: Active Orders 24 hr Category Date Time Status Abdomen Pelvis w Cont [CT] Stat Exams 05/11/19 15:02 Taken Sodium Chloride 0.9% [Saline Flush] Med 05/11/19 13:42 Active 10 ml FLUSH ASDIRECTED PRN Saline Lock Insert [OM.PC] Routine Oth 05/11/19 13:42 Ordered Medication Orders Sodium Chloride (Saline Flush) 10 ml FLUSH ASDIRECTED PRN PRN Reason: Keep Vein Open Last Admin: 05/11/19 14:11 Dose: 10 ml Labs: Laboratory Tests 05/11/19 05/11/19 05/11/19 Range/Units 14:20 14:20 14:20 WBC 5.0 (4.5-12.0) X10-3/uL RBC 4.24 (3.23-5.20) x10(6)uL Hgb 10.8 L (11.5-15.5) g/dL Hct 34.2 (30.0-51.3) % MCV 80.6 (80-96) fL MCH 25.5 L (27.7-33.6) pg MCHC 31.7 L (32.2-35.4) g/dL RDW 21.9 H (11.5-15.5) % Plt Count 296 (125-369) X10(3)uL MPV 9.0 (7.4-10.4) fL Neut % (Auto) 82.7 H (46-82) % Lymph % (Auto) 10.7 L (13-37) % [place] % (Auto) 5.9 (4-12) % Eos % (Auto) 0 L (1.0-5.0) % Baso % (Auto) 0 (0-2) % Neut # (Auto) 4.2 (1.6-8.3) # Lymph # (Auto) 0.5 L (0.6-5.0) # [place] # (Auto) 0.3 (0.0-1.3) # Eos # (Auto) 0.0 (0.0-0.8) # Baso # (Auto) 0.0 (0.0-0.2) # Sodium 145 (135-145) mmol/L Potassium 4.1 (3.5-5.3) mmol/L Chloride 106 (100-110) mmol/L Carbon Dioxide 28 (21-32) mmol/L BUN 7 D (7-18) mg/dL Creatinine 0.8 (0.55-1.02) mg/dL Est Cr Clr Drug Dosing TNP Estimated GFR (MDRD) > 60 (>60) BUN/Creatinine Ratio 8.8 L (9-20) Glucose 121 H (80-116) mg/dL Calcium 9.9 (8.6-10.2) mg/dL Total Bilirubin 0.7 (0.1-1.3) mg/dL AST 25 D (5-25) IU/L ALT 30 D (12-36) U/L Alkaline Phosphatase 85 (56-112) IU/L Total Protein 7.2 (6.0-8.0) g/dL Albumin 3.4 (3.2-4.6) g/dL Globulin 3.8 g/dL Albumin/Globulin Ratio 0.9 Lipase 32 L (73-393) U/L Meds: Medications Generic Name Dose Route Start Last Admin Trade Name Freq PRN Reason Stop Dose Admin Sodium Chloride 10 ml 05/11/19 13:42 05/11/19 14:11 Saline Flush FLUSH 10 ml ASDIRECTED PRN Administration Keep Vein Open Discontinued Medications Generic Name Dose Route Start Last Admin Trade Name Freq PRN Reason Stop Dose Admin Diatrizoate Meglum/Diatrizoate Sod 30 ml 05/11/19 15:45 05/11/19 15:53 Gastrografin 37% PO 05/11/19 15:46 30 ml . DIRECTED ONE Administration Sodium Chloride 500 mls @ 500 mls/hr 05/11/19 13:56 05/11/19 14:10 Normal Saline IV 05/11/19 14:55 500 mls/hr .BOLUS ONE Administration Iopamidol 100 ml 05/11/19 15:45 05/11/19 15:53 Isovue-370 (76%) IV 05/11/19 15:46 100 ml . DIRECTED ONE Administration Pantoprazole Sodium 40 mg 05/11/19 13:43 05/11/19 14:10 Protonix Iv IVPUSH 05/11/19 13:44 40 mg ONETIME ONE Administration - Radiology Interpretation Free Text/Narrative:: CT Abd/Pelvis with IV and Oral contrast: No acute abdominal or pelvic process. - Re-Assessments/Exams Free Text/Narrative Re-Assessment/Exam: 05/11/19 16:58 Patient tolerated PO contrast without difficulty. Patient care discussed with her primary physician (Dr. Johnson). He recommends that Hydrocodone not be prescribed, but OK to prescribe enough Tramadol for the weekend. Departure - Departure Time of Disposition: 16:58 Disposition: Home, Self-Care 01 Condition: Good Clinical Impression: Chronic abdominal pain Dysphagia Qualifiers: Dysphagia type: esophageal phase Qualified Code(s): R13.10 - Dysphagia, unspecified - Discharge Information *PRESCRIPTION DRUG MONITORING PROGRAM REVIEWED*: Yes *COPY OF PRESCRIPTION DRUG MONITORING REPORT IN PATIENT MANUEL: No Prescriptions: traMADol HCl [Tramadol HCl] 50 mg PO Q6H PRN #10 tablet PRN Reason: Pain Instructions: Dysphagia Eating Plan, Minced and Moist Foods, Chronic Pain, Adult Referrals: Mir Johnson MD [Primary Care Provider] - 3 Days Forms: ED Department Discharge Additional Instructions: Fill the prescription for Tramadol and take as directed. Eat minced and moist foods. Follow up with your primary physician in 3 days. Sepsis Event Note - Evaluation Sepsis Screening Result: No Definite Risk - Focused Exam Vital Signs: Vital Signs Temp Pulse Resp BP Pulse Ox 05/11/19 16:39 36.6 C 74 18 121/59 L 99 05/11/19 13:35 36.6 C 107 H 18 149/74 H 93 L Date Exam was Performed: 05/11/19 Time Exam was Performed: 16:52 - My Orders Last 24 Hours: My Active Orders 05/11/19 13:42 Sodium Chloride 0.9% [Saline Flush] 10 ml FLUSH ASDIRECTED PRN Saline Lock Insert [OM.PC] Routine 05/11/19 15:02 Abdomen Pelvis w Cont [CT] Stat - Assessment/Plan Last 24 Hours: My Active Orders 05/11/19 13:42 Sodium Chloride 0.9% [Saline Flush] 10 ml FLUSH ASDIRECTED PRN Saline Lock Insert [OM.PC] Routine 05/11/19 15:02 Abdomen Pelvis w Cont [CT] Stat
[2019-05-11] MEDS ORDERED: Sodium Chloride 0.9% 500 ML IV ONE (13:56)
[2019-05-11] MEDS ORDERED: Diatrizoate Meglumine/Diatrizoate Sodium 37% 30 ML Bottle PO ONE (15:45)
[2019-05-11] MEDS ORDERED: Iopamidol 755 Mg/ML 100 ML Bottle IV ONE (15:45)
[2019-05-11 16:41] VITALS: BP 121/59; PULSE 74
== END 2019-05-11 17:12 | disposition home or self-care (01) ==
LOC: FB.ED 13:18
DX: R13.10 Dysphagia, unspecified (principal); R10.13 Epigastric pain; I11.0 Hypertensive heart disease with heart failure; I50.9 Heart failure, unspecified; G62.9 Polyneuropathy, unspecified; E66.9 Obesity, unspecified; Z88.1 Allergy status to other antibiotic agents; Z88.0 Allergy status to penicillin; Z88.2 Allergy status to sulfonamides; Z79.899 Other long term (current) drug therapy
CPT/HCPCS: 36415; 74177; 80053; 83690; 85025; 96361; 96374; 99284; C9113; J7040; Q9963; Q9967

== ENCOUNTER 2019-05-11 18:09 | Emergency (ER) | payer MEDICARE ==
[2019-05-11] MEDS ORDERED: traMADol 50 MG Tab PO ONE (18:10)
[2019-05-11 18:42] VITALS: BP 118/62; PULSE 86
--- NOTE | 2019-05-11 18:51 | EDM.PDOC ---
ED HPI GENERAL MEDICAL PROBLEM - General Chief Complaint: Medication Administration Stated Complaint: MED CHECK Time Seen by Provider: 05/11/19 18:45 Source of Information: Reports: Patient History Limitations: Reports: No Limitations - History of Present Illness INITIAL COMMENTS - FREE TEXT/NARRATIVE: Patient was treated in the ED earlier today for chronic abdominal pain and dysphagia. She was prescribed Tramadol 50mg #10, however pharmacy would not fill because a 14 day supply was filled on 05/02/19 and cannot be filled again until 05/16/19. - Related Data Allergies Allergy/AdvReac Type Severity Reaction Status Date / Time ciprofloxacin [From Cipro] Allergy Itching Verified 03/20/19 17:38 erythromycin base Allergy Hives Verified 03/20/19 17:38 [Erythromycin Base] ibuprofen Allergy Other Verified 03/20/19 17:38 Influenza Virus Vaccines Allergy Nausea and Verified 03/20/19 17:38 Vomiting ketorolac [From Toradol] Allergy Nausea and Verified 03/20/19 17:38 Vomiting Penicillins Allergy Hives Verified 03/20/19 17:38 Sulfa (Sulfonamide Allergy Hives Verified 03/20/19 17:38 Antibiotics) Tetracyclines Allergy Hives Verified 03/20/19 17:38 Home Meds: Home Meds Temazepam [Restoril] 30 mg PO BEDTIME 08/16/16 [History] Multivitamin [Multivitamins] 1 tab PO DAILY 11/20/16 [History] Albuterol [Ventolin HFA] 1 puff INH Q4HR PRN 06/22/18 [History] Fluticasone/Vilanterol [Breo Ellipta 100-25 MCG Inhalation Kit] 1 puff INH DAILY PRN 08/02/18 [History] Omeprazole Magnesium [Prilosec Otc] 20 mg PO BID 01/22/19 [History] Sucralfate 1 gm PO QID 05/11/19 [History] miSOPROStoL [Misoprostol] 200 mcg PO BID 05/11/19 [History] traMADol HCl [Tramadol HCl] 50 mg PO Q6H PRN #10 tablet 05/11/19 [Rx] Past Medical History HEENT History: Reports: Cataract, Hard of Hearing, Other (See Below) Other HEENT History: DRY EYES Cardiovascular History: Reports: Heart Failure, Heart Murmur, Hypertension, Other (See Below) Other Cardiovascular History: AORTIC STENOSIS, ASCENDING AORTA DILATION, DIASTOLIC DYSFUNCTION, HEARTBEAT ABNORMALITY, PERIPHERAL VASCULAR DISEASE Respiratory History: Reports: Pneumonia, Recurrent, Other (See Below) Other Respiratory History: PULMONARY NODULE Gastrointestinal History: Reports: GERD, Other (See Below) Other Gastrointestinal History: hx abdominal fistula Genitourinary History: Reports: Other (See Below) Other Genitourinary History: cyst on R kidney GROUP ROOMS COORDINATOR 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 Psychiatric History: Reports: Anxiety, Depression Other Psychiatric History: Insomnia. Endocrine/Metabolic History: Reports: Obesity/BMI 30+, Osteoporosis Other Endocrine/Metabolic History: IMPAIRED GLUCOSE TOLERANCE Hematologic History: Reports: Anemia, Blood Transfusion(s) Dermatologic History: Reports: Cellulitis - Infectious Disease History Infectious Disease History: Reports: Measles Other Infectious Disease History: staff infection R ear, unsure if MRSA - Past Surgical History HEENT Surgical History: Reports: Cataract Surgery GI Surgical History: Reports: Appendectomy, Bariatric Procedure, Cholecystectomy , Colonoscopy, EGD Female Surgical History: Reports: Hysterectomy, Salpingo-Oophorectomy, Tubal Ligation Musculoskeletal Surgical History: Reports: Carpal Tunnel, Hip Replacement, ORIF , Shoulder Surgery Other Musculoskeletal Surgeries/Procedures:: bilat SHOULDER ARTHROPLASTY, ORIF to L wrist, pins removed, Social & Family History - Family History Family Medical History: Noncontributory HEENT: Reports: Glaucoma, Macular Degeneration Cardiac: Reports: Hypertension Endocrine/Metabolic: Reports: Diabetes Mellitus, Type 3c Oncologic: Reports: Brain, Colon, Lung Other Oncologic Family History: THROAT, LIVER, STOMACH - Tobacco Use Smoking Status *Q: Never Smoker - Caffeine Use Caffeine Use: Reports: None Other Caffeine Use: states that she takes powerade. - Recreational Drug Use Recreational Drug Use: No - Living Situation & Occupation Living situation: Reports: Alone ED ROS GENERAL - Review of Systems Review Of Systems: Comprehensive ROS is negative, except as noted in HPI. ED EXAM, GENERAL - Physical Exam Exam: See Below Exam Limited By: No Limitations General Appearance: Alert, WD/WN, No Apparent Distress Nose: Normal Inspection Throat/Mouth: No Airway Compromise Head: Atraumatic, Normocephalic Neck: Full Range of Motion Respiratory/Chest: No Respiratory Distress, Lungs Clear, Normal Breath Sounds Cardiovascular: Regular Rate, Rhythm, No Murmur GI/Abdominal: Normal Bowel Sounds, Soft, Tender (epigastric) Extremities: Normal Range of Motion Neurological: Alert, Normal Cognition, No Motor/Sensory Deficits Psychiatric: Normal Affect, Normal Mood Skin Exam: Warm, Dry, Intact Course - Vital Signs Last Recorded V/S: Last Vital Signs Temp 36.9 C 05/11/19 18:41 Pulse 86 05/11/19 18:41 Resp 18 05/11/19 18:41 BP 118/62 05/11/19 18:41 Pulse Ox 98 05/11/19 18:41 - Re-Assessments/Exams Free Text/Narrative Re-Assessment/Exam: 05/11/19 18:49 Tramadol prescription written earlier destroyed. Discharged with Tramadol 50mg starter pack (#8). Departure - Departure Time of Disposition: 18:51 Disposition: Home, Self-Care 01 Condition: Good Clinical Impression: Chronic abdominal pain - Discharge Information *PRESCRIPTION DRUG MONITORING PROGRAM REVIEWED*: Yes *COPY OF PRESCRIPTION DRUG MONITORING REPORT IN PATIENT MANUEL: No Instructions: Chronic Pain, Adult Referrals: Mir Johnson MD [Primary Care Provider] - Additional Instructions: Take Tramadol 50mg every 6 hours as needed. Follow up with Dr. Johnson next week. Sepsis Event Note - Evaluation Sepsis Screening Result: No Definite Risk - Focused Exam Vital Signs: Vital Signs Temp Pulse Resp BP Pulse Ox 05/11/19 18:41 36.9 C 86 18 118/62 98 Date Exam was Performed: 05/11/19 Time Exam was Performed: 18:45
== END 2019-05-11 18:56 | disposition home or self-care (01) ==
LOC: FB.ED 18:09
DX: R10.13 Epigastric pain (principal); G89.29 Other chronic pain; I11.0 Hypertensive heart disease with heart failure; I50.9 Heart failure, unspecified; K21.9 Gastro-esophageal reflux disease without esophagitis; F41.9 Anxiety disorder, unspecified; F32.9 Major depressive disorder, single episode, unspecified; Z88.1 Allergy status to other antibiotic agents; Z88.7 Allergy status to serum and vaccine; Z88.6 Allergy status to analgesic agent; Z88.0 Allergy status to penicillin; Z88.2 Allergy status to sulfonamides; Z79.899 Other long term (current) drug therapy
CPT/HCPCS: 99283; A9270-GY

== ENCOUNTER 2019-05-25 02:37 | Emergency (ER) | payer MEDICARE ==
[2019-05-25] MEDS ORDERED: traMADol 50 MG Tab PO ONE (02:38)
[2019-05-25] MEDS ORDERED: Sodium Chloride 0.9% 10 ML Syringe FLUSH PRN (03:07)
[2019-05-25] MEDS ORDERED: Ondansetron 4 MG/2 ML SDV IVPUSH ONE (03:09)
[2019-05-25] MEDS ORDERED: Pantoprazole 40 MG Vial IVPUSH ONE (03:09)
[2019-05-25] MEDS ORDERED: Morphine 2 MG/ML SYRINGE IVPUSH ONE ×2 (03:11→06:13)
[2019-05-25] MEDS ORDERED: Sodium Chloride 0.9% 1,000 ML IV SCH (03:15)
[2019-05-25 05:05] VITALS: BP 116/69; PULSE 58
[2019-05-25] MEDS ORDERED: Iopamidol 755 Mg/ML 100 ML Bottle IV ONE (05:07)
--- NOTE | 2019-05-25 06:25 | EDM.PDOC ---
ED HPI GENERAL MEDICAL PROBLEM - General Chief Complaint: Gastrointestinal Problem Time Seen by Provider: 05/25/19 02:50 Source of Information: Reports: Patient History Limitations: Reports: No Limitations - History of Present Illness INITIAL COMMENTS - FREE TEXT/NARRATIVE: Patient presented to the ED because of abdominal pain and vomiting a clotted blood x1. She denies having any melanotic stool. She was recently hospitalized 0n 04/29/19 at [facility] due to a bleeding PUD and discharged on 05/01/19. She was transfused a unit of PRBC because her Hb was 7 and prior to discharged her Bb was 10. She is taking prilosec,misoprostol, and carafate since then. mid-epigastric pain Pain Score (Numeric/FACES): 7 - Related Data Allergies Allergy/AdvReac Type Severity Reaction Status Date / Time ciprofloxacin [From Cipro] Allergy Itching Verified 05/25/19 03:52 erythromycin base Allergy Hives Verified 05/25/19 03:52 [Erythromycin Base] ibuprofen Allergy Other Verified 05/25/19 03:52 Influenza Virus Vaccines Allergy Nausea and Verified 05/25/19 03:52 Vomiting ketorolac [From Toradol] Allergy Nausea and Verified 05/25/19 03:52 Vomiting Penicillins Allergy Hives Verified 05/25/19 03:52 Sulfa (Sulfonamide Allergy Hives Verified 05/25/19 03:52 Antibiotics) Tetracyclines Allergy Hives Verified 05/25/19 03:52 Home Meds: Home Meds Temazepam [Restoril] 30 mg PO BEDTIME 08/16/16 [History] Multivitamin [Multivitamins] 1 tab PO DAILY 11/20/16 [History] Albuterol [Ventolin HFA] 1 puff INH Q4HR PRN 06/22/18 [History] Fluticasone/Vilanterol [Breo Ellipta 100-25 MCG Inhalation Kit] 1 puff INH DAILY PRN 08/02/18 [History] Omeprazole Magnesium [Prilosec Otc] 20 mg PO BID 01/22/19 [History] Sucralfate 1 gm PO QID 05/11/19 [History] miSOPROStoL [Misoprostol] 200 mcg PO BID 05/11/19 [History] traMADol HCl [Tramadol HCl] 50 mg PO Q6H PRN #10 tablet 05/11/19 [Rx] Past Medical History HEENT History: Reports: Cataract, Hard of Hearing, Other (See Below) Other HEENT History: DRY EYES Cardiovascular History: Reports: Heart Failure, Heart Murmur, Hypertension, Other (See Below) Other Cardiovascular History: AORTIC STENOSIS, ASCENDING AORTA DILATION, DIASTOLIC DYSFUNCTION, HEARTBEAT ABNORMALITY, PERIPHERAL VASCULAR DISEASE Respiratory History: Reports: Pneumonia, Recurrent, Other (See Below) Other Respiratory History: PULMONARY NODULE Gastrointestinal History: Reports: GERD, Other (See Below) Other Gastrointestinal History: hx abdominal fistula, bleeding ulcer in stomach Genitourinary History: Reports: Other (See Below) Other Genitourinary History: cyst on R kidney CHEMICAL PLANT MANAGER 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 Psychiatric History: Reports: Anxiety, Depression Other Psychiatric History: Insomnia. Endocrine/Metabolic History: Reports: Obesity/BMI 30+, Osteoporosis Other Endocrine/Metabolic History: IMPAIRED GLUCOSE TOLERANCE Hematologic History: Reports: Anemia, Blood Transfusion(s) Dermatologic History: Reports: Cellulitis - Infectious Disease History Infectious Disease History: Reports: Measles Other Infectious Disease History: staff infection R ear, unsure if MRSA - Past Surgical History HEENT Surgical History: Reports: Cataract Surgery GI Surgical History: Reports: Appendectomy, Bariatric Procedure, Cholecystectomy , Colonoscopy, EGD Female Surgical History: Reports: Hysterectomy, Salpingo-Oophorectomy, Tubal Ligation Musculoskeletal Surgical History: Reports: Carpal Tunnel, Hip Replacement, ORIF , Shoulder Surgery Other Musculoskeletal Surgeries/Procedures:: bilat SHOULDER ARTHROPLASTY, ORIF to L wrist, pins removed, Social & Family History - Family History Family Medical History: Noncontributory HEENT: Reports: Glaucoma, Macular Degeneration Cardiac: Reports: Hypertension Endocrine/Metabolic: Reports: Diabetes Mellitus, Type 3c Oncologic: Reports: Brain, Colon, Lung Other Oncologic Family History: THROAT, LIVER, STOMACH - Tobacco Use Smoking Status *Q: Never Smoker - Caffeine Use Caffeine Use: Reports: None Other Caffeine Use: states that she takes powerade. - Recreational Drug Use Recreational Drug Use: No - Living Situation & Occupation Living situation: Reports: Alone ED ROS GENERAL - Review of Systems Review Of Systems: See Below Constitutional: Reports: No Symptoms HEENT: Reports: No Symptoms Respiratory: Reports: No Symptoms Cardiovascular: Reports: No Symptoms Endocrine: Reports: No Symptoms GI/Abdominal: Reports: Abdominal Pain, Nausea, Vomiting. Denies: Black Stool, Bloody Stool : Reports: No Symptoms Musculoskeletal: Reports: No Symptoms Skin: Reports: No Symptoms Neurological: Reports: No Symptoms Psychiatric: Reports: No Symptoms Hematologic/Lymphatic: Reports: No Symptoms Immunologic: Reports: No Symptoms ED EXAM, GI/ABD - Physical Exam Exam: See Below Exam Limited By: No Limitations General Appearance: Alert, No Apparent Distress Ears: Normal External Exam, Normal Canal, Hearing Grossly Normal Nose: Normal Inspection, Normal Mucosa Throat/Mouth: Normal Inspection, Normal Teeth Head: Atraumatic, Normocephalic Neck: Normal Inspection, Supple, Non-Tender, Full Range of Motion Respiratory/Chest: No Respiratory Distress, Lungs Clear, Normal Breath Sounds Cardiovascular: Normal Peripheral Pulses, Regular Rate, Rhythm, No Edema, No Gallop GI/Abdominal Exam: Normal Bowel Sounds, Soft, Other (epigastric tenderness) Back Exam: Normal Inspection Extremities: Normal Inspection, Normal Range of Motion, Non-Tender Neurological: Alert, Oriented, CN II-XII Intact, Normal Cognition Course - Vital Signs Text/Narrative:: Labs/CT abd and pelvis was discussed with patient and verbalized full understanding NS 1 L bolus Zofran 4 mg IV x1 Morphine 2 mg IV x2 doses Her Hb actually did improved and I don't think there is an active bleeding. Since she is hemodynamically stable she can be discharged to home and will follow up with Dr Johnson on Tuesday. She was advised to return to the ED anytime if she have bloody stool or emesis. Last Recorded V/S: Last Vital Signs Temp 36.4 C 05/25/19 02:37 Pulse 58 L 05/25/19 04:30 Resp 14 05/25/19 04:30 BP 116/69 05/25/19 04:30 Pulse Ox 100 05/25/19 04:30 - Orders/Labs/Meds Orders: Active Orders 24 hr Category Date Time Status Abdomen Pelvis w Cont [CT] Stat Exams 05/25/19 03:12 Taken Sodium Chloride 0.9% [Normal Saline] 1,000 ml Med 05/25/19 03:15 Active IV ASDIRECTED Sodium Chloride 0.9% [Saline Flush] Med 05/25/19 03:07 Active 10 ml FLUSH ASDIRECTED PRN Saline Lock Insert [OM.PC] Routine Oth 05/25/19 03:07 Ordered Medication Orders Sodium Chloride (Normal Saline) 1,000 mls @ 999 mls/hr IV ASDIRECTED ED Last Admin: 05/25/19 03:30 Dose: 999 mls/hr Sodium Chloride (Saline Flush) 10 ml FLUSH ASDIRECTED PRN PRN Reason: Keep Vein Open Last Admin: 05/25/19 03:27 Dose: 10 ml Labs: Laboratory Tests 05/25/19 05/25/19 05/25/19 Range/Units 03:25 03:25 03:25 WBC 3.4 L (4.5-12.0) X10-3/uL RBC 4.06 (3.23-5.20) x10(6)uL Hgb 10.7 L (11.5-15.5) g/dL Hct 32.8 (30.0-51.3) % MCV 80.6 (80-96) fL MCH 26.3 L (27.7-33.6) pg MCHC 32.6 (32.2-35.4) g/dL RDW 18.4 H (11.5-15.5) % Plt Count 221 (125-369) X10(3)uL MPV 8.6 (7.4-10.4) fL Neut % (Auto) 50.3 (46-82) % Lymph % (Auto) 34.3 (13-37) % [place] % (Auto) 12.7 H (4-12) % Eos % (Auto) 2 (1.0-5.0) % Baso % (Auto) 0 (0-2) % Neut # (Auto) 1.7 (1.6-8.3) # Lymph # (Auto) 1.2 (0.6-5.0) # [place] # (Auto) 0.4 (0.0-1.3) # Eos # (Auto) 0.1 (0.0-0.8) # Baso # (Auto) 0.0 (0.0-0.2) # PT 10.3 (9.0-11.1) sec INR 1.06 (1.00-1.24) APTT 27.3 (24.4-33.2) SECONDS Sodium 145 (135-145) mmol/L Potassium 4.0 (3.5-5.3) mmol/L Chloride 108 (100-110) mmol/L Carbon Dioxide 29 (21-32) mmol/L BUN 9 (7-18) mg/dL Creatinine 0.9 (0.55-1.02) mg/dL Est Cr Clr Drug Dosing TNP Estimated GFR (MDRD) > 60 (>60) BUN/Creatinine Ratio 10.0 (9-20) Glucose 88 (80-116) mg/dL Calcium 9.4 (8.6-10.2) mg/dL Total Bilirubin 0.4 (0.1-1.3) mg/dL AST 20 D (5-25) IU/L ALT 21 D (12-36) U/L Alkaline Phosphatase 87 (56-112) IU/L Total Protein 6.8 (6.0-8.0) g/dL Albumin 3.0 L (3.2-4.6) g/dL Globulin 3.8 g/dL Albumin/Globulin Ratio 0.8 Amylase 22 L (25-115) U/L Lipase (73-393) U/L 03/06/ Range/Units 03:25 WBC (4.5-12.0) X10-3/uL RBC (3.23-5.20) x10(6)uL Hgb (11.5-15.5) g/dL Hct (30.0-51.3) % MCV (80-96) fL MCH (27.7-33.6) pg MCHC (32.2-35.4) g/dL RDW (11.5-15.5) % Plt Count (125-369) X10(3)uL MPV (7.4-10.4) fL Neut % (Auto) (46-82) % Lymph % (Auto) (13-37) % [place] % (Auto) (4-12) % Eos % (Auto) (1.0-5.0) % Baso % (Auto) (0-2) % Neut # (Auto) (1.6-8.3) # Lymph # (Auto) (0.6-5.0) # [place] # (Auto) (0.0-1.3) # Eos # (Auto) (0.0-0.8) # Baso # (Auto) (0.0-0.2) # PT (9.0-11.1) sec INR (1.00-1.24) APTT (24.4-33.2) SECONDS Sodium (135-145) mmol/L Potassium (3.5-5.3) mmol/L Chloride (100-110) mmol/L Carbon Dioxide (21-32) mmol/L BUN (7-18) mg/dL Creatinine (0.55-1.02) mg/dL Est Cr Clr Drug Dosing Estimated GFR (MDRD) (>60) BUN/Creatinine Ratio (9-20) Glucose (80-116) mg/dL Calcium (8.6-10.2) mg/dL Total Bilirubin (0.1-1.3) mg/dL AST (5-25) IU/L ALT (12-36) U/L Alkaline Phosphatase (56-112) IU/L Total Protein (6.0-8.0) g/dL Albumin (3.2-4.6) g/dL Globulin g/dL Albumin/Globulin Ratio Amylase (25-115) U/L Lipase 31 L (73-393) U/L Meds: Medications Generic Name Dose Route Start Last Admin Trade Name Freq PRN Reason Stop Dose Admin Sodium Chloride 1,000 mls @ 999 mls/hr 05/25/19 03:15 05/25/19 03:30 Normal Saline IV 999 mls/hr ASDIRECTED ED Administration Sodium Chloride 10 ml 05/25/19 03:07 05/25/19 03:27 Saline Flush FLUSH 10 ml ASDIRECTED PRN Administration Keep Vein Open Discontinued Medications Generic Name Dose Route Start Last Admin Trade Name Freq PRN Reason Stop Dose Admin Iopamidol 100 ml 05/25/19 05:07 05/25/19 05:17 [id number] (76%) IV 05/25/19 05:08 100 ml . DIRECTED ONE Administration Morphine Sulfate 2 mg 05/25/19 03:11 05/25/19 03:27 Morphine IVPUSH 05/25/19 03:12 2 mg ONETIME ONE Administration Morphine Sulfate 2 mg 05/25/19 06:13 Morphine IVPUSH 05/25/19 06:14 ONETIME ONE Ondansetron HCl 4 mg 05/25/19 03:09 05/25/19 03:27 Zofran IVPUSH 05/25/19 03:10 4 mg ONETIME ONE Administration Pantoprazole Sodium 80 mg 05/25/19 03:09 05/25/19 03:27 Protonix Iv IVPUSH 05/25/19 03:10 80 mg ONETIME ONE Administration Departure - Departure Time of Disposition: 06:35 Disposition: Home, Self-Care 01 Condition: Good Clinical Impression: PUD (peptic ulcer disease) - Discharge Information Referrals: Mir Johnson MD [Primary Care Provider] - Additional Instructions: Please read discharge instructions on peptic ulcer disease Continue your omeprazole,carafate and misprostol for your ulcer Zofran odt 4 mg every 4 hours as needed for nause Return to the ED anytime if you have bloody stool or emesis Keep your appointment to see Dr Johnson on Tuesday Sepsis Event Note - Evaluation Sepsis Screening Result: No Definite Risk - Focused Exam Vital Signs: Vital Signs Temp Pulse Resp BP Pulse Ox 05/25/19 04:30 58 L 14 116/69 100 05/25/19 02:37 36.4 C 59 L 15 132/75 99 Date Exam was Performed: 05/25/19 Time Exam was Performed: 06:19 - My Orders Last 24 Hours: My Active Orders 05/25/19 03:07 Sodium Chloride 0.9% [Saline Flush] 10 ml FLUSH ASDIRECTED PRN Saline Lock Insert [OM.PC] Routine 05/25/19 03:12 Abdomen Pelvis w Cont [CT] Stat 05/25/19 03:15 Sodium Chloride 0.9% [Normal Saline] 1,000 ml IV ASDIRECTED - Assessment/Plan Last 24 Hours: My Active Orders 05/25/19 03:07 Sodium Chloride 0.9% [Saline Flush] 10 ml FLUSH ASDIRECTED PRN Saline Lock Insert [OM.PC] Routine 05/25/19 03:12 Abdomen Pelvis w Cont [CT] Stat 05/25/19 03:15 Sodium Chloride 0.9% [Normal Saline] 1,000 ml IV ASDIRECTED
== END 2019-05-25 06:57 | disposition home or self-care (01) ==
LOC: FB.ED 02:37
DX: K27.9 Peptic ulcer, site unspecified, unspecified as acute or chronic, without hemorrhage or perforation (principal); I11.0 Hypertensive heart disease with heart failure; I50.9 Heart failure, unspecified; K21.9 Gastro-esophageal reflux disease without esophagitis; G62.9 Polyneuropathy, unspecified; E66.9 Obesity, unspecified; Z68.43 Body mass index [BMI] 50.0-59.9, adult; Z79.899 Other long term (current) drug therapy; Z88.1 Allergy status to other antibiotic agents; Z88.2 Allergy status to sulfonamides
CPT/HCPCS: 36415; 74177; 80053; 82150; 83690; 85025; 85610; 85730; 96361; 96374; 96375; 96376; 99285; A9270; C9113; J2270; J2405; J7030; Q9967; 99284

== ENCOUNTER 2019-06-17 21:56 | Emergency (ER) | payer MEDICARE ==
[2019-06-17] MEDS ORDERED: Acetaminophen/HYDROcodone 325-5 MG Tab PO ONE (21:57)
[2019-06-17 22:29] VITALS: BP 117/95; PULSE 82
--- NOTE | 2019-06-17 22:35 | EDM.PDOC ---
ED HPI GENERAL MEDICAL PROBLEM - General Chief Complaint: Abdominal Pain Stated Complaint: ULCER Time Seen by Provider: 06/17/19 22:31 Source of Information: Reports: Patient History Limitations: Reports: No Limitations - History of Present Illness INITIAL COMMENTS - FREE TEXT/NARRATIVE: 73 yo with chronic abdominal pain;PUD,and enterocutaneous fistula. She complains of chronic epigastric pain,burning,difficulty swallowing and vomiting blood tinged ,material for 3-4 days. She is unable to keep Tramadol down. She was supposed to have surgery but has been postponed due to the ongoing Pandemic. Middle Abdomen Pain Score (Numeric/FACES): 8 - Related Data Allergies Allergy/AdvReac Type Severity Reaction Status Date / Time ciprofloxacin [From Cipro] Allergy Itching Verified 06/17/19 21:57 erythromycin base Allergy Hives Verified 06/17/19 21:57 [Erythromycin Base] ibuprofen Allergy Other Verified 06/17/19 21:57 Influenza Virus Vaccines Allergy Nausea and Verified 06/17/19 21:57 Vomiting ketorolac [From Toradol] Allergy Nausea and Verified 06/17/19 21:57 Vomiting Penicillins Allergy Hives Verified 06/17/19 21:57 Sulfa (Sulfonamide Allergy Hives Verified 06/17/19 21:57 Antibiotics) Tetracyclines Allergy Hives Verified 06/17/19 21:57 Home Meds: Home Meds Temazepam [Restoril] 30 mg PO BEDTIME 08/16/16 [History] Multivitamin [Multivitamins] 1 tab PO DAILY 11/20/16 [History] Albuterol [Ventolin HFA] 1 puff INH Q4HR PRN 06/22/18 [History] Fluticasone/Vilanterol [Breo Ellipta 100-25 MCG Inhalation Kit] 1 puff INH DAILY PRN 08/02/18 [History] Omeprazole Magnesium [Prilosec Otc] 20 mg PO BID 01/22/19 [History] traMADol HCl [Tramadol HCl] 50 mg PO Q6H PRN #10 tablet 05/11/19 [Rx] Past Medical History HEENT History: Reports: Cataract, Hard of Hearing, Other (See Below) Other HEENT History: DRY EYES Cardiovascular History: Reports: Heart Failure, Heart Murmur, Hypertension, Other (See Below) Other Cardiovascular History: AORTIC STENOSIS, ASCENDING AORTA DILATION, DIASTOLIC DYSFUNCTION, HEARTBEAT ABNORMALITY, PERIPHERAL VASCULAR DISEASE Respiratory History: Reports: Pneumonia, Recurrent, Other (See Below) Other Respiratory History: PULMONARY NODULE Gastrointestinal History: Reports: GERD, Other (See Below) Other Gastrointestinal History: hx abdominal fistula, bleeding ulcer in stomach Genitourinary History: Reports: Other (See Below) Other Genitourinary History: cyst on R kidney ROLL UP HELPER History: Reports: Other ROLL UP HELPER History: Musculoskeletal History: Reports: Arthritis, Fracture, Osteoporosis Other Musculoskeletal History: LUMBAGO, hx fx R hip, L femur, L wrist, Neurological History: Reports: Neuropathy, Peripheral Other Neuro History: Bilateral peripheral neuropathy. Psychiatric History: Reports: Anxiety, Depression Other Psychiatric History: Insomnia. Endocrine/Metabolic History: Reports: Obesity/BMI 30+, Osteoporosis Other Endocrine/Metabolic History: IMPAIRED GLUCOSE TOLERANCE Hematologic History: Reports: Anemia, Blood Transfusion(s) Dermatologic History: Reports: Cellulitis - Infectious Disease History Infectious Disease History: Reports: Measles Other Infectious Disease History: staff infection R ear, unsure if MRSA - Past Surgical History HEENT Surgical History: Reports: Cataract Surgery GI Surgical History: Reports: Appendectomy, Bariatric Procedure, Cholecystectomy , Colonoscopy, EGD Female Surgical History: Reports: Hysterectomy, Salpingo-Oophorectomy, Tubal Ligation Musculoskeletal Surgical History: Reports: Carpal Tunnel, Hip Replacement, ORIF , Shoulder Surgery Other Musculoskeletal Surgeries/Procedures:: bilat SHOULDER ARTHROPLASTY, ORIF to L wrist, pins removed, Social & Family History - Family History Family Medical History: Noncontributory HEENT: Reports: Glaucoma, Macular Degeneration Cardiac: Reports: Hypertension Endocrine/Metabolic: Reports: Diabetes Mellitus, Type 3c Oncologic: Reports: Brain, Colon, Lung Other Oncologic Family History: THROAT, LIVER, STOMACH - Tobacco Use Smoking Status *Q: Never Smoker - Caffeine Use Caffeine Use: Reports: None Other Caffeine Use: states that she takes powerade. - Recreational Drug Use Recreational Drug Use: No - Living Situation & Occupation Living situation: Reports: Alone ED ROS GENERAL - Review of Systems Review Of Systems: Comprehensive ROS is negative, except as noted in HPI. ED EXAM, GI/ABD - Physical Exam Exam: See Below Exam Limited By: No Limitations General Appearance: Alert, WD/WN Nose: Normal Inspection Throat/Mouth: Normal Inspection Head: Atraumatic Neck: Normal Inspection Respiratory/Chest: No Respiratory Distress Cardiovascular: Normal Peripheral Pulses GI/Abdominal Exam: Normal Bowel Sounds Course - Vital Signs Last Recorded V/S: Last Vital Signs Temp 98.6 F 06/17/19 21:56 Pulse 82 06/17/19 21:56 Resp 16 06/17/19 21:56 BP 117/95 H 06/17/19 21:56 Pulse Ox 98 06/17/19 21:56 - Orders/Labs/Meds Labs: Laboratory Tests 06/17/19 06/17/19 Range/Units 22:20 22:20 WBC 5.9 (4.5-12.0) X10-3/uL RBC 4.96 (3.23-5.20) x10(6)uL Hgb 12.4 (11.5-15.5) g/dL Hct 39.7 (30.0-51.3) % MCV 80.1 (80-96) fL MCH 25.0 L (27.7-33.6) pg MCHC 31.3 L (32.2-35.4) g/dL RDW 17.3 H (11.5-15.5) % Plt Count 239 (125-369) X10(3)uL MPV 9.6 (7.4-10.4) fL Neut % (Auto) 60.7 (46-82) % Lymph % (Auto) 26.7 (13-37) % [place] % (Auto) 9.5 (4-12) % Eos % (Auto) 2 (1.0-5.0) % Baso % (Auto) 1 (0-2) % Neut # (Auto) 3.6 (1.6-8.3) # Lymph # (Auto) 1.6 (0.6-5.0) # [place] # (Auto) 0.6 (0.0-1.3) # Eos # (Auto) 0.1 (0.0-0.8) # Baso # (Auto) 0.0 (0.0-0.2) # Sodium 146 H (135-145) mmol/L Potassium 3.9 (3.5-5.3) mmol/L Chloride 108 (100-110) mmol/L Carbon Dioxide 27 (21-32) mmol/L BUN 11 (7-18) mg/dL Creatinine 1.1 H (0.55-1.02) mg/dL Est Cr Clr Drug Dosing 32.72 mL/min Estimated GFR (MDRD) 49 L (>60) BUN/Creatinine Ratio 10.0 (9-20) Glucose 82 (80-116) mg/dL Calcium 9.2 (8.6-10.2) mg/dL Total Bilirubin 0.6 (0.1-1.3) mg/dL AST 37 H D (5-25) IU/L ALT 32 D (12-36) U/L Alkaline Phosphatase 116 H (56-112) IU/L Total Protein 7.6 (6.0-8.0) g/dL Albumin 3.8 (3.2-4.6) g/dL Globulin 3.8 g/dL Albumin/Globulin Ratio 1.0 Amylase 40 (25-115) U/L Departure - Departure Time of Disposition: 22:48 Disposition: Home, Self-Care 01 Condition: Good Clinical Impression: Abdominal pain, PUD (peptic ulcer disease), GERD (gastroesophageal reflux disease) - Discharge Information Referrals: PCP,None [Primary Care Provider] - Forms: ED Department Discharge Sepsis Event Note - Evaluation Sepsis Screening Result: No Definite Risk - Focused Exam Vital Signs: Vital Signs Temp Pulse Resp BP Pulse Ox 06/17/19 21:56 98.6 F 82 16 117/95 H 98 Date Exam was Performed: 06/17/19 Time Exam was Performed: 22:48 - Problem List & Annotations (1) Abdominal pain SNOMED Code(s): 82015826 Code(s): R10.9 - UNSPECIFIED ABDOMINAL PAIN Status: Acute Current Visit: No - Problem List Review Problem List Initiated/Reviewed/Updated: Yes - Assessment/Plan Plan: Labs were fairly normal. I will send 4 tabs of Spotie. See PCP tomorrow
== END 2019-06-17 23:10 | disposition home or self-care (01) ==
LOC: FB.ED 21:56
DX: K27.9 Peptic ulcer, site unspecified, unspecified as acute or chronic, without hemorrhage or perforation (principal); K21.9 Gastro-esophageal reflux disease without esophagitis; I11.0 Hypertensive heart disease with heart failure; I50.9 Heart failure, unspecified; E11.42 Type 2 diabetes mellitus with diabetic polyneuropathy; F41.9 Anxiety disorder, unspecified; F32.9 Major depressive disorder, single episode, unspecified; E11.51 Type 2 diabetes mellitus with diabetic peripheral angiopathy without gangrene; Z88.1 Allergy status to other antibiotic agents; Z88.0 Allergy status to penicillin; Z88.2 Allergy status to sulfonamides; Z79.899 Other long term (current) drug therapy
CPT/HCPCS: 36415; 80053; 82150; 85025; 99284; A9270

== ENCOUNTER 2019-07-17 21:45 | Emergency (ER) | payer MEDICARE ==
[2019-07-17] MEDS ORDERED: Lidocaine 2% Viscous Solution 15 ML Cup PO ONE (22:16)
[2019-07-17] MEDS ORDERED: Alum Hydroxide/Mag Hydroxide 15 ML, Lidocaine 2% 15 ML PO ONE ×2 (22:25)
[2019-07-17] MEDS ORDERED: traMADol 50 MG Tab PO ONE (22:41)
--- NOTE | 2019-07-17 22:56 | EDM.PDOC ---
ED HPI GENERAL MEDICAL PROBLEM - General Chief Complaint: Abdominal Pain Stated Complaint: stomach pain Time Seen by Provider: 07/17/19 21:55 Source of Information: Reports: Patient History Limitations: Reports: No Limitations - History of Present Illness INITIAL COMMENTS - FREE TEXT/NARRATIVE: Patient presented to the ED because of epigastric pain since yesterday. The pain is sharp and burning,denies any N/V/D. There is no fever or chills. There is no melonotic stools, hematochezia or hematemesis. Epigastric Pain Score (Numeric/FACES): 8 - Related Data Allergies Allergy/AdvReac Type Severity Reaction Status Date / Time ciprofloxacin [From Cipro] Allergy Itching Verified 06/17/19 21:57 erythromycin base Allergy Hives Verified 06/17/19 21:57 [Erythromycin Base] ibuprofen Allergy Other Verified 06/17/19 21:57 Influenza Virus Vaccines Allergy Nausea and Verified 06/17/19 21:57 Vomiting ketorolac [From Toradol] Allergy Nausea and Verified 06/17/19 21:57 Vomiting NSAIDS (Non-Steroidal Allergy Other Verified 07/17/19 21:52 Anti-Inflamma Penicillins Allergy Hives Verified 06/17/19 21:57 Sulfa (Sulfonamide Allergy Hives Verified 06/17/19 21:57 Antibiotics) Tetracyclines Allergy Hives Verified 06/17/19 21:57 Home Meds: Home Meds Temazepam [Restoril] 30 mg PO BEDTIME 08/16/16 [History] Multivitamin [Multivitamins] 1 tab PO DAILY 11/20/16 [History] Albuterol [Ventolin HFA] 1 puff INH Q4HR PRN 06/22/18 [History] Omeprazole Magnesium [Prilosec Otc] 20 mg PO BID 01/22/19 [History] traMADol HCl [Tramadol HCl] 50 mg PO Q6H PRN #10 tablet 05/11/19 [Rx] Past Medical History HEENT History: Reports: Cataract, Hard of Hearing, Other (See Below) Other HEENT History: DRY EYES Cardiovascular History: Reports: Heart Failure, Heart Murmur, Hypertension, Other (See Below) Other Cardiovascular History: AORTIC STENOSIS, ASCENDING AORTA DILATION, DIASTOLIC DYSFUNCTION, HEARTBEAT ABNORMALITY, PERIPHERAL VASCULAR DISEASE Respiratory History: Reports: Pneumonia, Recurrent, Other (See Below) Other Respiratory History: PULMONARY NODULE Gastrointestinal History: Reports: GERD, Other (See Below) Other Gastrointestinal History: hx abdominal fistula, bleeding ulcer in stomach Genitourinary History: Reports: Other (See Below) Other Genitourinary History: cyst on R kidney 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 Psychiatric History: Reports: Anxiety, Depression Other Psychiatric History: Insomnia. Endocrine/Metabolic History: Reports: Obesity/BMI 30+, Osteoporosis Other Endocrine/Metabolic History: IMPAIRED GLUCOSE TOLERANCE Hematologic History: Reports: Anemia, Blood Transfusion(s) Dermatologic History: Reports: Cellulitis - Infectious Disease History Infectious Disease History: Reports: Measles Other Infectious Disease History: staff infection R ear, unsure if MRSA - Past Surgical History HEENT Surgical History: Reports: Cataract Surgery GI Surgical History: Reports: Appendectomy, Bariatric Procedure, Cholecystectomy , Colonoscopy, EGD Female Surgical History: Reports: Hysterectomy, Salpingo-Oophorectomy, Tubal Ligation Musculoskeletal Surgical History: Reports: Carpal Tunnel, Hip Replacement, ORIF , Shoulder Surgery Other Musculoskeletal Surgeries/Procedures:: bilat SHOULDER ARTHROPLASTY, ORIF to L wrist, pins removed, Social & Family History - Family History Family Medical History: Noncontributory HEENT: Reports: Glaucoma, Macular Degeneration Cardiac: Reports: Hypertension Endocrine/Metabolic: Reports: Diabetes Mellitus, Type 3c Oncologic: Reports: Brain, Colon, Lung Other Oncologic Family History: THROAT, LIVER, STOMACH - Tobacco Use Smoking Status *Q: Never Smoker Second Hand Smoke Exposure: No - Caffeine Use Caffeine Use: Reports: None Other Caffeine Use: states that she takes powerade. - Recreational Drug Use Recreational Drug Use: No - Living Situation & Occupation Living situation: Reports: Alone ED ROS GENERAL - Review of Systems Review Of Systems: See Below Constitutional: Reports: No Symptoms HEENT: Reports: No Symptoms Respiratory: Reports: No Symptoms Cardiovascular: Reports: No Symptoms Endocrine: Reports: No Symptoms GI/Abdominal: Reports: Abdominal Pain : Reports: No Symptoms Musculoskeletal: Reports: No Symptoms Skin: Reports: No Symptoms Neurological: Reports: No Symptoms ED EXAM, GI/ABD - Physical Exam Exam: See Below Exam Limited By: No Limitations General Appearance: Alert, No Apparent Distress Ears: Normal External Exam, Normal Canal Nose: Normal Inspection, Normal Mucosa Throat/Mouth: Normal Inspection, Normal Lips Head: Atraumatic, Normocephalic Neck: Normal Inspection, Supple, Non-Tender Respiratory/Chest: No Respiratory Distress, Lungs Clear, Normal Breath Sounds Cardiovascular: Normal Peripheral Pulses, Regular Rate, Rhythm, No Edema GI/Abdominal Exam: Normal Bowel Sounds, Soft, Other (epigastric tendeness) Extremities: Normal Inspection, Normal Range of Motion, Non-Tender Course - Vital Signs Text/Narrative:: abdominal xray-flat/uprt tramadol 50 mg po x1GI cocktail Last Recorded V/S: Last Vital Signs Temp 37.3 C 07/17/19 21:50 Pulse 70 07/17/19 21:50 Resp 20 07/17/19 21:50 BP 166/94 H 07/17/19 21:50 Pulse Ox 99 07/17/19 21:50 - Orders/Labs/Meds Orders: Active Orders 24 hr Category Date Time Status Abdomen 2V AP Flat Upright [CR] Stat Exams 07/17/19 22:15 Taken Labs: Laboratory Tests 07/17/19 07/17/19 Range/Units 22:25 22:25 WBC 4.6 (4.5-12.0) X10-3/uL RBC 4.96 (3.23-5.20) x10(6)uL Hgb 12.5 (11.5-15.5) g/dL Hct 39.6 (30.0-51.3) % MCV 79.8 L (80-96) fL MCH 25.2 L (27.7-33.6) pg MCHC 31.6 L (32.2-35.4) g/dL RDW 17.2 H (11.5-15.5) % Plt Count 248 (125-369) X10(3)uL MPV 8.8 (7.4-10.4) fL Neut % (Auto) 65.6 (46-82) % Lymph % (Auto) 23.1 (13-37) % [place] % (Auto) 7.6 (4-12) % Eos % (Auto) 1 (1.0-5.0) % Baso % (Auto) 3 H (0-2) % Neut # (Auto) 3.0 (1.6-8.3) # Lymph # (Auto) 1.1 (0.6-5.0) # [place] # (Auto) 0.3 (0.0-1.3) # Eos # (Auto) 0.1 (0.0-0.8) # Baso # (Auto) 0.1 (0.0-0.2) # Sodium 140 (135-145) mmol/L Potassium 4.0 (3.5-5.3) mmol/L Chloride 103 D (100-110) mmol/L Carbon Dioxide 30 (21-32) mmol/L BUN 8 (7-18) mg/dL Creatinine 0.9 (0.55-1.02) mg/dL Est Cr Clr Drug Dosing 39.99 mL/min Estimated GFR (MDRD) > 60 (>60) BUN/Creatinine Ratio 8.9 L (9-20) Glucose 104 (80-116) mg/dL Calcium 10.0 (8.6-10.2) mg/dL Meds: Medications Discontinued Medications Generic Name Dose Route Start Last Admin Trade Name Freq PRN Reason Stop Dose Admin Al Hydroxide/Mg Hydroxide 15 0 ml 07/17/19 22:25 07/17/19 22:41 ml/ Lidocaine HCl 15 ml PO 07/17/19 22:26 30 ml ONETIME ONE Administration Lidocaine HCl 15 ml 07/17/19 22:16 07/17/19 22:39 Xylocaine 2% Viscous PO 07/17/19 22:17 Not Given ONETIME ONE Tramadol HCl 50 mg 07/17/19 22:41 07/17/19 22:45 Ultram PO 07/17/19 22:42 50 mg ONETIME ONE Administration Departure - Departure Time of Disposition: 11:20 Disposition: Home, Self-Care 01 Condition: Good Clinical Impression: GERD (gastroesophageal reflux disease), PUD (peptic ulcer disease), Constipation - Discharge Information Instructions: Peptic Ulcer, Gastroesophageal Reflux Disease, Adult, Easy-to- Read Referrals: Mir Johnson MD [Primary Care Provider] - Forms: ED Department Discharge Additional Instructions: please read discharge instructions on GERD and PUD continue your omeprazole Keep your appointment to be seen by the abdominal surgeon as scheduled. dissolve 2 scoops of miralax in 2 glasses of water then drink the entire solution. Do this once daily until you have a good bowel movement Sepsis Event Note - Evaluation Sepsis Screening Result: No Definite Risk - Focused Exam Vital Signs: Vital Signs Temp Pulse Resp BP Pulse Ox 07/17/19 21:50 37.3 C 70 20 166/94 H 99 Date Exam was Performed: 07/17/19 Time Exam was Performed: 23:16 - My Orders Last 24 Hours: My Active Orders 07/17/19 22:15 Abdomen 2V AP Flat Upright [CR] Stat - Assessment/Plan Last 24 Hours: My Active Orders 07/17/19 22:15 Abdomen 2V AP Flat Upright [CR] Stat
[2019-07-17 23:28] VITALS: BP 141/56; PULSE 53
--- NOTE | 2019-07-18 10:05 | CR ---
INDICATION: Mid epigastric pain. ABDOMEN, TWO VIEW: Five images of the abdomen were obtained in supine and upright projections 07/17/19 and compared with 05/25/19 CT of the abdomen and pelvis. Evidence of previous surgery is again noted in the mid epigastric and left upper quadrant areas. The pattern of gas and feces is nonspecific without evidence of free air or obstruction. On upright positioning, there is a dextroconcave rotoscoliosis of the lumbar spine. Degenerative changes are noted at the sacroiliac joints. Degenerative disc disease may be present with narrowing of disc spaces in the mid to lower lumbar levels. No organomegaly, mass lesions or pathologic calcifications were noted except for some phleboliths in the pelvis and suggestion of very minimal aortic calcification. IMPRESSION: Nonacute abdomen. MTDD
== END 2019-07-17 23:29 | disposition home or self-care (01) ==
LOC: FB.ED 21:45
DX: K27.9 Peptic ulcer, site unspecified, unspecified as acute or chronic, without hemorrhage or perforation (principal); K21.9 Gastro-esophageal reflux disease without esophagitis; K59.00 Constipation, unspecified; I11.0 Hypertensive heart disease with heart failure; I50.9 Heart failure, unspecified; G62.9 Polyneuropathy, unspecified; Z88.1 Allergy status to other antibiotic agents; Z88.8 Allergy status to other drugs, medicaments and biological substances; Z88.0 Allergy status to penicillin; Z88.2 Allergy status to sulfonamides; E66.9 Obesity, unspecified; Z68.36 Body mass index [BMI] 36.0-36.9, adult
CPT/HCPCS: 36415; 74019; 80048; 85025; 99284; A9270

== ENCOUNTER 2019-10-16 23:27 | Emergency (ER) | payer MEDICARE ==
[2019-10-16] MEDS ORDERED: traMADol 50 MG Tab PO ONE (23:58)
--- NOTE | 2019-10-17 00:08 | EDM.PDOC ---
ED HPI GENERAL MEDICAL PROBLEM - General Chief Complaint: Abdominal Pain Stated Complaint: STOMACH PAIN Time Seen by Provider: 10/16/19 23:35 Source of Information: Reports: Patient History Limitations: Reports: No Limitations - History of Present Illness INITIAL COMMENTS - FREE TEXT/NARRATIVE: Patient presented to the ED because of burning epigastric pain. She a h/o SRINIVASA and is takin Arlette. She also has a previous fistula surgery which has been hurting after the surgery. there is no fever,chills,N/V. 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 Epigastric radiating into R upper abdomen Pain Score (Numeric/FACES): 8 - Related Data Allergies Allergy/AdvReac Type Severity Reaction Status Date / Time ciprofloxacin [From Cipro] Allergy Itching Verified 10/16/19 23:33 erythromycin base Allergy Hives Verified 10/16/19 23:33 [Erythromycin Base] ibuprofen Allergy Other Verified 10/16/19 23:33 Influenza Virus Vaccines Allergy Nausea and Verified 10/16/19 23:33 Vomiting ketorolac [From Toradol] Allergy Nausea and Verified 10/16/19 23:33 Vomiting NSAIDS (Non-Steroidal Allergy Other Verified 10/16/19 23:33 Anti-Inflamma Penicillins Allergy Hives Verified 10/16/19 23:33 Sulfa (Sulfonamide Allergy Hives Verified 10/16/19 23:33 Antibiotics) Tetracyclines Allergy Hives Verified 10/16/19 23:33 Home Meds: Home Meds Temazepam [Restoril] 30 mg PO BEDTIME 08/16/16 [History] Multivitamin [Multivitamins] 1 tab PO DAILY 11/20/16 [History] Albuterol [Ventolin HFA] 1 puff INH Q4HR PRN 06/22/18 [History] Esomeprazole Magnesium [Nexium] 40 mg PO BID 10/16/19 [History] traMADol [Ultram] 100 mg PO Q8H PRN #10 tablet 10/17/19 [Rx] Past Medical History HEENT History: Reports: Cataract, Hard of Hearing, Other (See Below) Other HEENT History: DRY EYES Cardiovascular History: Reports: Heart Failure, Heart Murmur, Hypertension, Other (See Below) Other Cardiovascular History: AORTIC STENOSIS, ASCENDING AORTA DILATION, DIASTOLIC DYSFUNCTION, HEARTBEAT ABNORMALITY, PERIPHERAL VASCULAR DISEASE Respiratory History: Reports: Pneumonia, Recurrent, Other (See Below) Other Respiratory History: PULMONARY NODULE Gastrointestinal History: Reports: GERD, Other (See Below) Other Gastrointestinal History: hx abdominal fistula, bleeding ulcer in stomach Genitourinary History: Reports: Other (See Below) Other Genitourinary History: cyst on R kidney REWRITE EDITOR History: Reports: Other REWRITE EDITOR History: Musculoskeletal History: Reports: Arthritis, Fracture, Osteoporosis Other Musculoskeletal History: LUMBAGO, hx fx R hip, L femur, L wrist, Neurological History: Reports: Neuropathy, Peripheral Other Neuro History: Bilateral peripheral neuropathy. Psychiatric History: Reports: Anxiety, Depression Other Psychiatric History: Insomnia. Endocrine/Metabolic History: Reports: Obesity/BMI 30+, Osteoporosis Other Endocrine/Metabolic History: IMPAIRED GLUCOSE TOLERANCE Hematologic History: Reports: Anemia, Blood Transfusion(s) Dermatologic History: Reports: Cellulitis - Infectious Disease History Infectious Disease History: Reports: Measles, Mumps Other Infectious Disease History: staff infection R ear, unsure if MRSA - Past Surgical History HEENT Surgical History: Reports: Cataract Surgery, Oral Surgery Other HEENT Surgeries/Procedures: bilat cataract surgery, GI Surgical History: Reports: Appendectomy, Bariatric Procedure, Cholecystectomy, Colonoscopy, EGD, Other (See Below) Other GI Surgeries/Procedures: abd fistula repaired, 09/04/2019 Female Surgical History: Reports: Hysterectomy, Salpingo-Oophorectomy, Tubal Ligation Musculoskeletal Surgical History: Reports: Carpal Tunnel, Hip Replacement, ORIF, Shoulder Surgery Other Musculoskeletal Surgeries/Procedures:: bilat SHOULDER ARTHROPLASTY, ORIF to L wrist, pins removed, Social & Family History - Family History Family Medical History: Noncontributory HEENT: Reports: Glaucoma, Macular Degeneration Cardiac: Reports: Hypertension Endocrine/Metabolic: Reports: Diabetes Mellitus, Type 3c Oncologic: Reports: Brain, Colon, Lung Other Oncologic Family History: THROAT, LIVER, STOMACH - Tobacco Use Smoking Status *Q: Never Smoker - Caffeine Use Caffeine Use: Reports: None Other Caffeine Use: states that she takes powerade. - Recreational Drug Use Recreational Drug Use: No - Living Situation & Occupation Living situation: Reports: Alone ED ROS GENERAL - Review of Systems Review Of Systems: See Below Constitutional: Reports: No Symptoms HEENT: Reports: No Symptoms Respiratory: Reports: No Symptoms Cardiovascular: Reports: No Symptoms Endocrine: Reports: No Symptoms GI/Abdominal: Reports: Abdominal Pain. Denies: Nausea : Reports: No Symptoms Musculoskeletal: Reports: No Symptoms Skin: Reports: No Symptoms Neurological: Reports: No Symptoms Psychiatric: Reports: No Symptoms ED EXAM, GI/ABD - Physical Exam Exam: See Below Exam Limited By: No Limitations General Appearance: Alert, No Apparent Distress Ears: Normal External Exam, Normal Canal Nose: Normal Inspection, Normal Mucosa Throat/Mouth: Normal Inspection, Normal Lips, Normal Teeth, Normal Gums Head: Atraumatic, Normocephalic Neck: Normal Inspection, Supple, Non-Tender, Full Range of Motion Respiratory/Chest: No Respiratory Distress, Lungs Clear, Normal Breath Sounds Cardiovascular: Normal Peripheral Pulses, Regular Rate, Rhythm, No Edema GI/Abdominal Exam: Normal Bowel Sounds, Soft, Other (epigastric tendeness) Back Exam: Normal Inspection, Full Range of Motion Extremities: Normal Inspection, Normal Range of Motion Neurological: Alert, Oriented, CN II-XII Intact, Normal Cognition Course - Vital Signs Text/Narrative:: GI cocktail Tramadol 100 mg po x1 Last Recorded V/S: Last Vital Signs Temp 36.8 C 10/16/19 23:30 Pulse 71 10/17/19 00:15 Resp 18 10/17/19 00:15 BP 153/88 H 10/17/19 00:15 Pulse Ox 99 10/17/19 00:15 - Orders/Labs/Meds Meds: Medications Discontinued Medications Generic Name Dose Route Start Last Admin Trade Name Freq PRN Reason Stop Dose Admin Al Hydroxide/Mg Hydroxide 15 0 ml 10/17/19 00:09 10/17/19 00:12 ml/ Lidocaine HCl 15 ml PO 10/17/19 00:10 30 ml NOW STA Administration Tramadol HCl 100 mg 10/16/19 23:58 10/17/19 00:10 Ultram PO 10/16/19 23:59 100 mg ONETIME ONE Administration Departure - Departure Time of Disposition: 00:30 Disposition: Home, Self-Care 01 Condition: Good Clinical Impression: Post-op pain - Discharge Information Prescriptions: traMADol [Ultram] 100 mg PO Q8H PRN #10 tablet PRN Reason: Pain Instructions: Heartburn, [id number], Pain Relief Before and After Surgery, Preventing Constipation After Surgery Referrals: PCP,None [Primary Care Provider] - Forms: ED Department Discharge Additional Instructions: Please read discharge instructions on GERD/Heart burn and post operative pain take your nexium as prescribed Take tramadol 100 mg with tylenol 1000 mg every 8 hours as needed with your with pain Follow up with your doctor as scheduled Sepsis Event Note (ED) - Evaluation Sepsis Screening Result: No Definite Risk - Focused Exam Vital Signs: Vital Signs Temp Pulse Resp BP Pulse Ox 10/17/19 00:15 71 18 153/88 H 99 10/16/19 23:30 36.8 C 57 L 18 160/62 H 99
[2019-10-17] MEDS ORDERED: Alum Hydroxide/Mag Hydroxide 15 ML, Lidocaine 2% 15 ML PO STA ×2 (00:09)
[2019-10-17 00:25] VITALS: BP 153/88; PULSE 71
== END 2019-10-17 00:22 | disposition home or self-care (01) ==
LOC: FB.ED 23:27
DX: G89.18 Other acute postprocedural pain (principal); R10.13 Epigastric pain; I11.0 Hypertensive heart disease with heart failure; I50.9 Heart failure, unspecified; K21.9 Gastro-esophageal reflux disease without esophagitis; E66.9 Obesity, unspecified; Z68.35 Body mass index [BMI] 35.0-35.9, adult; G62.9 Polyneuropathy, unspecified; F41.9 Anxiety disorder, unspecified; Z88.1 Allergy status to other antibiotic agents; Z88.8 Allergy status to other drugs, medicaments and biological substances; Z88.6 Allergy status to analgesic agent; Z88.0 Allergy status to penicillin; Z88.2 Allergy status to sulfonamides
CPT/HCPCS: 99284; A9270-GY

== ENCOUNTER 2019-10-27 12:47 | Emergency (ER) | payer MEDICARE ==
[2019-10-27] MEDS ORDERED: Acetaminophen/oxyCODONE 325-5 MG Tab PO ONE (12:48)
[2019-10-27 13:29] VITALS: BP 128/95; PULSE 71
--- NOTE | 2019-10-27 14:11 | EDM.PDOC ---
ED HPI GENERAL MEDICAL PROBLEM - General Chief Complaint: Back Pain or Injury Stated Complaint: STOMACH HURTS,BACK HURTS Time Seen by Provider: 10/27/19 13:00 Source of Information: Reports: Patient History Limitations: Reports: No Limitations - History of Present Illness INITIAL COMMENTS - FREE TEXT/NARRATIVE: pt with Hx of chronic and wall pain / seems related to surgical scars and adhesions, comes in basically asking for mng of chronic pain, tells me she has been treated in the past with Percocet a, tramadol also vicodin, now she is ourt of her tramadol which she doesnt think is helping, pt report nausea and dry heaves with pain episodes this morning, denies any emesis , diarrhea or constipation. report remote Hx of gastric bypass surgery. PCP is Dr mendoza. Upper abdomen & lower back Pain Score (Numeric/FACES): 9 - Related Data Allergies Allergy/AdvReac Type Severity Reaction Status Date / Time ciprofloxacin [From Cipro] Allergy Itching Verified 10/27/19 13:25 erythromycin base Allergy Hives Verified 10/27/19 13:25 [Erythromycin Base] ibuprofen Allergy Other Verified 10/27/19 13:25 Influenza Virus Vaccines Allergy Nausea and Verified 10/27/19 13:25 Vomiting ketorolac [From Toradol] Allergy Nausea and Verified 10/27/19 13:25 Vomiting NSAIDS (Non-Steroidal Allergy Other Verified 10/27/19 13:25 Anti-Inflamma Penicillins Allergy Hives Verified 10/27/19 13:25 Sulfa (Sulfonamide Allergy Hives Verified 10/27/19 13:25 Antibiotics) Tetracyclines Allergy Hives Verified 10/27/19 13:25 Home Meds: Home Meds Temazepam [Restoril] 30 mg PO BEDTIME 08/16/16 [History] Multivitamin [Multivitamins] 1 tab PO DAILY 11/20/16 [History] Albuterol [Ventolin HFA] 1 puff INH Q4HR PRN 06/22/18 [History] Esomeprazole Magnesium [Nexium] 40 mg PO BID 10/16/19 [History] Past Medical History HEENT History: Reports: Cataract, Hard of Hearing, Other (See Below) Other HEENT History: DRY EYES Cardiovascular History: Reports: Heart Failure, Heart Murmur, Hypertension, Other (See Below) Other Cardiovascular History: AORTIC STENOSIS, ASCENDING AORTA DILATION, DIASTOLIC DYSFUNCTION, HEARTBEAT ABNORMALITY, PERIPHERAL VASCULAR DISEASE Respiratory History: Reports: Pneumonia, Recurrent, Other (See Below) Other Respiratory History: PULMONARY NODULE Gastrointestinal History: Reports: GERD, Other (See Below) Other Gastrointestinal History: hx abdominal fistula, bleeding ulcer in stomach Genitourinary History: Reports: Other (See Below) Other Genitourinary History: cyst on R kidney RESIDENTIAL TREATMENT COUNSELOR History: Reports: Other RESIDENTIAL TREATMENT COUNSELOR History: Musculoskeletal History: Reports: Arthritis, Fracture, Osteoporosis Other Musculoskeletal History: LUMBAGO, hx fx R hip, L femur, L wrist, Neurological History: Reports: Neuropathy, Peripheral Other Neuro History: Bilateral peripheral neuropathy. Psychiatric History: Reports: Anxiety, Depression Other Psychiatric History: Insomnia. Endocrine/Metabolic History: Reports: Obesity/BMI 30+, Osteoporosis Other Endocrine/Metabolic History: IMPAIRED GLUCOSE TOLERANCE Hematologic History: Reports: Anemia, Blood Transfusion(s) Dermatologic History: Reports: Cellulitis - Infectious Disease History Infectious Disease History: Reports: Measles, Mumps Other Infectious Disease History: staff infection R ear, unsure if MRSA - Past Surgical History HEENT Surgical History: Reports: Cataract Surgery, Oral Surgery Other HEENT Surgeries/Procedures: bilat cataract surgery, GI Surgical History: Reports: Appendectomy, Bariatric Procedure, Cholecystectomy, Colonoscopy, EGD, Other (See Below) Other GI Surgeries/Procedures: abd fistula repaired, 09/04/2019 Female Surgical History: Reports: Hysterectomy, Salpingo-Oophorectomy, Tubal Ligation Musculoskeletal Surgical History: Reports: Carpal Tunnel, Hip Replacement, ORIF, Shoulder Surgery Other Musculoskeletal Surgeries/Procedures:: bilat SHOULDER ARTHROPLASTY, ORIF to L wrist, pins removed, Social & Family History - Family History Family Medical History: Noncontributory HEENT: Reports: Glaucoma, Macular Degeneration Cardiac: Reports: Hypertension Endocrine/Metabolic: Reports: Diabetes Mellitus, Type 3c Oncologic: Reports: Brain, Colon, Lung Other Oncologic Family History: THROAT, LIVER, STOMACH - Caffeine Use Caffeine Use: Reports: None Other Caffeine Use: states that she takes powerade. - Living Situation & Occupation Living situation: Reports: Alone ED ROS GENERAL - Review of Systems Review Of Systems: See Below Constitutional: Reports: Fatigue. Denies: Fever, Chills HEENT: Reports: No Symptoms Respiratory: Reports: No Symptoms Cardiovascular: Reports: No Symptoms GI/Abdominal: Reports: Abdominal Pain, Nausea. Denies: Bloody Stool, Diarrhea, Vomiting : Reports: No Symptoms Musculoskeletal: Reports: No Symptoms Skin: Reports: No Symptoms Neurological: Reports: No Symptoms ED EXAM, GENERAL - Physical Exam Exam: See Below Exam Limited By: No Limitations General Appearance: Alert, No Apparent Distress Eye Exam: Bilateral Eye: Normal Inspection Nose: Normal Inspection Throat/Mouth: Normal Inspection, Normal Oropharynx Neck: Normal Inspection, Supple Respiratory/Chest: No Respiratory Distress, Lungs Clear Cardiovascular: Normal Peripheral Pulses, Regular Rate, Rhythm GI/Abdominal: Normal Bowel Sounds, Soft, Tender (tender over surgical scar at mid line and across abdominal wall over the RUQ , skin is normal, no ulceration or erythema. ) Back Exam: Normal Inspection Extremities: Normal Inspection, Normal Range of Motion Neurological: Alert, Oriented, CN II-XII Intact Skin Exam: Warm, Dry Course - Vital Signs Text/Narrative:: pt has chronic abd wall pain and stable for out patient mng. she was given 6 tablets on percocet to cover her over the weakened until she sees her PCP on Tuesday. Last Recorded V/S: Last Vital Signs Temp 36.3 C 10/27/19 13:15 Pulse 71 10/27/19 13:15 Resp 18 10/27/19 13:15 BP 128/95 H 10/27/19 13:15 Pulse Ox 94 L 10/27/19 13:15 Departure - Departure Time of Disposition: 14:15 Disposition: Home, Self-Care 01 Clinical Impression: Abdominal wall pain - Discharge Information Referrals: Mir Johnson MD [Primary Care Provider] - Sepsis Event Note (ED) - Evaluation Sepsis Screening Result: No Definite Risk - Focused Exam Vital Signs: Vital Signs Temp Pulse Resp BP Pulse Ox 10/27/19 13:15 36.3 C 71 18 128/95 H 94 L
== END 2019-10-27 14:34 | disposition home or self-care (01) ==
LOC: FB.ED 12:47
DX: R10.11 Right upper quadrant pain (principal); I11.0 Hypertensive heart disease with heart failure; I50.9 Heart failure, unspecified; K21.9 Gastro-esophageal reflux disease without esophagitis; M19.90 Unspecified osteoarthritis, unspecified site; E66.9 Obesity, unspecified; Z68.35 Body mass index [BMI] 35.0-35.9, adult; F41.9 Anxiety disorder, unspecified; Z88.1 Allergy status to other antibiotic agents; Z88.6 Allergy status to analgesic agent; Z88.8 Allergy status to other drugs, medicaments and biological substances; Z88.2 Allergy status to sulfonamides; Z88.0 Allergy status to penicillin; Z79.899 Other long term (current) drug therapy; Z79.82 Long term (current) use of aspirin
CPT/HCPCS: 99283; A9270

== ENCOUNTER 2019-10-28 21:30 | Emergency (ER) | payer MEDICARE ==
[2019-10-28] MEDS ORDERED: traMADol 50 MG Tab PO ONE (21:31)
[2019-10-28 21:52] VITALS: BP 147/70; PULSE 78
--- NOTE | 2019-10-28 22:37 | EDM.PDOC ---
ED HPI GENERAL MEDICAL PROBLEM - General Chief Complaint: Gastrointestinal Problem Stated Complaint: STOMACH PAIN Time Seen by Provider: 10/28/19 21:45 Source of Information: Reports: Patient History Limitations: Reports: No Limitations - History of Present Illness INITIAL COMMENTS - FREE TEXT/NARRATIVE: pt is back also today with c/o chronic abd wall and epigastric pain, she was seen for this yesterday and was given 4 Percocet with instruction to follow with her PCP on mng of chronic pain, she is back today and tells me she vomitied her last Percocet this afternoon and wants something to hold her up until Tuesday where she can be seen by her PCP, pt report streaks of blood with her emesis, indicate long Hx of recurrent sporadic emesis which she attribute to her chronic abd pain, pt denies noticing any blood in stool or any other associated sx or any other concerns. stomach Pain Score (Numeric/FACES): 9 - Related Data Allergies Allergy/AdvReac Type Severity Reaction Status Date / Time ciprofloxacin [From Cipro] Allergy Itching Verified 10/27/19 13:25 erythromycin base Allergy Hives Verified 10/27/19 13:25 [Erythromycin Base] ibuprofen Allergy Other Verified 10/27/19 13:25 Influenza Virus Vaccines Allergy Nausea and Verified 10/27/19 13:25 Vomiting ketorolac [From Toradol] Allergy Nausea and Verified 10/27/19 13:25 Vomiting NSAIDS (Non-Steroidal Allergy Other Verified 10/27/19 13:25 Anti-Inflamma Penicillins Allergy Hives Verified 10/27/19 13:25 Sulfa (Sulfonamide Allergy Hives Verified 10/27/19 13:25 Antibiotics) Tetracyclines Allergy Hives Verified 10/27/19 13:25 Home Meds: Home Meds Temazepam [Restoril] 30 mg PO BEDTIME 08/16/16 [History] Multivitamin [Multivitamins] 1 tab PO DAILY 11/20/16 [History] Albuterol [Ventolin HFA] 1 puff INH Q4HR PRN 06/22/18 [History] Esomeprazole Magnesium [Nexium] 40 mg PO BID 10/16/19 [History] oxyCODONE HCl/Acetaminophen [Percocet 5-325 mg Tablet] 1 each PO BID PRN 3 Days #6 tablet 10/27/19 [Rx] Past Medical History HEENT History: Reports: Cataract, Hard of Hearing, Other (See Below) Other HEENT History: DRY EYES Cardiovascular History: Reports: Heart Failure, Heart Murmur, Hypertension, Other (See Below) Other Cardiovascular History: AORTIC STENOSIS, ASCENDING AORTA DILATION, DIASTOLIC DYSFUNCTION, HEARTBEAT ABNORMALITY, PERIPHERAL VASCULAR DISEASE Respiratory History: Reports: Pneumonia, Recurrent, Other (See Below) Other Respiratory History: PULMONARY NODULE Gastrointestinal History: Reports: GERD, Other (See Below) Other Gastrointestinal History: hx abdominal fistula, bleeding ulcer in stomach Genitourinary History: Reports: Other (See Below) Other Genitourinary History: cyst on R kidney SLASH TRIMMER History: Reports: 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 Psychiatric History: Reports: Anxiety, Depression Other Psychiatric History: Insomnia. Endocrine/Metabolic History: Reports: Obesity/BMI 30+, Osteoporosis Other Endocrine/Metabolic History: IMPAIRED GLUCOSE TOLERANCE Hematologic History: Reports: Anemia, Blood Transfusion(s) Dermatologic History: Reports: Cellulitis - Infectious Disease History Infectious Disease History: Reports: Measles, Mumps Other Infectious Disease History: staff infection R ear, unsure if MRSA - Past Surgical History Head Surgeries/Procedures: Reports: None HEENT Surgical History: Reports: Cataract Surgery, Oral Surgery Other HEENT Surgeries/Procedures: bilat cataract surgery, GI Surgical History: Reports: Appendectomy, Bariatric Procedure, Cholecystectomy, Colonoscopy, EGD, Other (See Below) Other GI Surgeries/Procedures: abd fistula repaired, 09/04/2019 Female Surgical History: Reports: Hysterectomy, Salpingo-Oophorectomy, Tubal Ligation Musculoskeletal Surgical History: Reports: Carpal Tunnel, Hip Replacement, ORIF, Shoulder Surgery Other Musculoskeletal Surgeries/Procedures:: bilat SHOULDER ARTHROPLASTY, ORIF to L wrist, pins removed, Social & Family History - Family History Family Medical History: Noncontributory HEENT: Reports: Glaucoma, Macular Degeneration Cardiac: Reports: Hypertension Endocrine/Metabolic: Reports: Diabetes Mellitus, Type 3c Oncologic: Reports: Brain, Colon, Lung Other Oncologic Family History: THROAT, LIVER, STOMACH - Tobacco Use Smoking Status *Q: Never Smoker - Caffeine Use Caffeine Use: Reports: None Other Caffeine Use: states that she takes powerade. - Recreational Drug Use Recreational Drug Use: No - Living Situation & Occupation Living situation: Reports: Alone ED ROS GENERAL - Review of Systems Review Of Systems: See Below Constitutional: Reports: Fatigue. Denies: Fever, Chills HEENT: Reports: No Symptoms Respiratory: Reports: No Symptoms Cardiovascular: Reports: No Symptoms GI/Abdominal: Reports: Abdominal Pain, Nausea, Vomiting. Denies: Black Stool, Bloody Stool : Reports: No Symptoms Musculoskeletal: Reports: No Symptoms Skin: Reports: No Symptoms Neurological: Reports: No Symptoms ED EXAM, GI/ABD - Physical Exam Exam: See Below Exam Limited By: No Limitations General Appearance: Alert, Other (pt appear comfortable here. ) Throat/Mouth: Normal Inspection, Normal Oropharynx Head: Atraumatic, Normocephalic Neck: Normal Inspection, Supple, Non-Tender Respiratory/Chest: No Respiratory Distress, Lungs Clear, Normal Breath Sounds Cardiovascular: Normal Peripheral Pulses, Regular Rate, Rhythm GI/Abdominal Exam: Normal Bowel Sounds, Soft, Tender (tender over the epigastric area , no guarding or sgns of acute abd. ) Back Exam: Normal Inspection Extremities: Normal Inspection Course - Vital Signs Text/Narrative:: pt has chronic stable abd pain, no signs of acute abd on today exam, pt was given 4 tabs on Ultram and i had a lengthy discussion with her explaining that she needs to follow up primally with her PCP on mng of her chronic pain. Last Recorded V/S: Last Vital Signs Temp 36.6 C 10/28/19 21:51 Pulse 78 10/28/19 21:51 Resp 14 10/28/19 21:51 BP 147/70 H 10/28/19 21:51 Pulse Ox 100 10/28/19 21:51 Departure - Departure Time of Disposition: 22:39 Disposition: Home, Self-Care 01 Clinical Impression: Chronic abdominal pain - Discharge Information Referrals: Mir Johnson MD [Primary Care Provider] - Sepsis Event Note (ED) - Evaluation Sepsis Screening Result: No Definite Risk - Focused Exam Vital Signs: Vital Signs Temp Pulse Resp BP Pulse Ox 10/28/19 21:51 36.6 C 78 14 147/70 H 100
== END 2019-10-28 22:58 | disposition home or self-care (01) ==
LOC: FB.ED 21:30
DX: R10.13 Epigastric pain (principal); I11.0 Hypertensive heart disease with heart failure; I50.9 Heart failure, unspecified; K21.9 Gastro-esophageal reflux disease without esophagitis; Z79.899 Other long term (current) drug therapy; E66.9 Obesity, unspecified; G62.9 Polyneuropathy, unspecified; Z68.38 Body mass index [BMI] 38.0-38.9, adult; Z88.1 Allergy status to other antibiotic agents; Z88.6 Allergy status to analgesic agent; Z88.8 Allergy status to other drugs, medicaments and biological substances; Z88.0 Allergy status to penicillin; Z88.2 Allergy status to sulfonamides
CPT/HCPCS: 99283; A9270

== ENCOUNTER 2019-12-23 19:20 | Emergency (ER) | payer MEDICARE ==
[2019-12-23] MEDS ORDERED: traMADol 50 MG Tab PO ONE ×2 (19:21→21:05)
[2019-12-23 19:53] VITALS: BP 134/76; PULSE 78
[2019-12-23] MEDS ORDERED: Ondansetron 4 MG/2 ML SDV IVPUSH ONE (20:40)
[2019-12-23] MEDS ORDERED: Morphine 2 MG/ML SYRINGE IVPUSH ONE (20:41)
[2019-12-23] MEDS ORDERED: Sodium Chloride 0.9% 1,000 ML IV SCH (20:45)
[2019-12-23] MEDS: Sodium Chloride 0.9% 10 ML Syringe FLUSH PRN ×4 (20:50→21:18)
[2019-12-23] MEDS ORDERED: Iopamidol 755 Mg/ML 100 ML Bottle IV ONE (21:43)
--- NOTE | 2019-12-23 22:09 | EDM.PDOC ---
ED HPI GENERAL MEDICAL PROBLEM - General Chief Complaint: Abdominal Pain Stated Complaint: STOMACH Time Seen by Provider: 12/23/19 22:00 Source of Information: Reports: Patient - History of Present Illness INITIAL COMMENTS - FREE TEXT/NARRATIVE: Patient presented to the ED because of abdominal pain,nausea/vomiting for 2-3 days. The pain is sharp and burning over the epigastric area. There is no fever/chills/, diarrhea, constipation. No urinary symptom. She has a history of chronic abdominal pain related to her hiatal hernia, and 2 previous gastric bypass. She is scheduled to have a GI Surgery consultation on January 17, 2020. Upper Abdominal Pain Score (Numeric/FACES): 8 - Related Data Allergies Allergy/AdvReac Type Severity Reaction Status Date / Time ciprofloxacin [From Cipro] Allergy Itching Verified 10/27/19 13:25 erythromycin base Allergy Hives Verified 10/27/19 13:25 [Erythromycin Base] ibuprofen Allergy Other Verified 10/27/19 13:25 Influenza Virus Vaccines Allergy Nausea and Verified 10/27/19 13:25 Vomiting ketorolac [From Toradol] Allergy Nausea and Verified 10/27/19 13:25 Vomiting NSAIDS (Non-Steroidal Allergy Other Verified 10/27/19 13:25 Anti-Inflamma Penicillins Allergy Hives Verified 10/27/19 13:25 Sulfa (Sulfonamide Allergy Hives Verified 10/27/19 13:25 Antibiotics) Tetracyclines Allergy Hives Verified 10/27/19 13:25 Home Meds: Home Meds Temazepam [Restoril] 30 mg PO BEDTIME 08/16/16 [History] Multivitamin [Multivitamins] 1 tab PO DAILY 11/20/16 [History] Esomeprazole Magnesium [Nexium] 40 mg PO BID 10/16/19 [History] Past Medical History HEENT History: Reports: Cataract, Hard of Hearing, Other (See Below) Other HEENT History: DRY EYES. Left cochlear implant. Cardiovascular History: Reports: Heart Failure, Heart Murmur, Hypertension, Other (See Below) Other Cardiovascular History: AORTIC STENOSIS, ASCENDING AORTA DILATION, DIASTOLIC DYSFUNCTION, HEARTBEAT ABNORMALITY, PERIPHERAL VASCULAR DISEASE Respiratory History: Reports: Pneumonia, Recurrent, Other (See Below) Other Respiratory History: PULMONARY NODULE Gastrointestinal History: Reports: GERD, Other (See Below) Other Gastrointestinal History: hx abdominal fistula, bleeding ulcer in stomach Genitourinary History: Reports: Other (See Below) Other Genitourinary History: cyst on R kidney STUD SETTER History: Reports: 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 Psychiatric History: Reports: Anxiety, Depression Other Psychiatric History: Insomnia. Endocrine/Metabolic History: Reports: Obesity/BMI 30+, Osteoporosis Other Endocrine/Metabolic History: IMPAIRED GLUCOSE TOLERANCE Hematologic History: Reports: Anemia, Blood Transfusion(s) Dermatologic History: Reports: Cellulitis - Infectious Disease History Infectious Disease History: Reports: Measles, Mumps Other Infectious Disease History: staff infection R ear, unsure if MRSA - Past Surgical History Head Surgeries/Procedures: Reports: None HEENT Surgical History: Reports: Cataract Surgery, Oral Surgery Other HEENT Surgeries/Procedures: bilat cataract surgery, GI Surgical History: Reports: Appendectomy, Bariatric Procedure, Cholecystectomy, Colonoscopy, EGD, Other (See Below) Other GI Surgeries/Procedures: abd fistula repaired, 09/04/2019 Female Surgical History: Reports: Hysterectomy, Salpingo-Oophorectomy, Tubal Ligation Musculoskeletal Surgical History: Reports: Carpal Tunnel, Hip Replacement, ORIF, Shoulder Surgery Other Musculoskeletal Surgeries/Procedures:: bilat SHOULDER ARTHROPLASTY, ORIF to L wrist, pins removed, Social & Family History - Family History Family Medical History: Noncontributory HEENT: Reports: Glaucoma, Macular Degeneration Cardiac: Reports: Hypertension Endocrine/Metabolic: Reports: Diabetes Mellitus, Type 3c Oncologic: Reports: Brain, Colon, Lung Other Oncologic Family History: THROAT, LIVER, STOMACH - Tobacco Use Smoking Status *Q: Unknown Ever Smoked - Caffeine Use Caffeine Use: Reports: None Other Caffeine Use: states that she takes powerade. - Recreational Drug Use Recreational Drug Use: No - Living Situation & Occupation Living situation: Reports: Alone ED ROS GENERAL - Review of Systems Review Of Systems: See Below Constitutional: Reports: No Symptoms HEENT: Reports: No Symptoms Respiratory: Reports: No Symptoms Cardiovascular: Reports: No Symptoms Endocrine: Reports: No Symptoms GI/Abdominal: Reports: No Symptoms, Abdominal Pain, Nausea, Vomiting : Reports: No Symptoms Musculoskeletal: Reports: No Symptoms Skin: Reports: No Symptoms Neurological: Reports: No Symptoms Psychiatric: Reports: No Symptoms Hematologic/Lymphatic: Reports: No Symptoms Immunologic: Reports: Pollen Allergy ED EXAM, GI/ABD - Physical Exam Exam: See Below Exam Limited By: No Limitations General Appearance: Alert, No Apparent Distress Ears: Normal External Exam, Normal Canal Nose: Normal Inspection, Normal Mucosa Throat/Mouth: Normal Inspection, Normal Lips, Normal Teeth Head: Atraumatic, Normocephalic Neck: Normal Inspection, Supple, Non-Tender, Full Range of Motion, Carotid Bruit Respiratory/Chest: No Respiratory Distress Cardiovascular: Normal Peripheral Pulses, Regular Rate, Rhythm, No Edema, No Gallop GI/Abdominal Exam: Normal Bowel Sounds, Soft, No Organomegaly, Other (diffusely tender) Back Exam: Normal Inspection, Full Range of Motion Extremities: Normal Inspection, Normal Range of Motion, Non-Tender, No Pedal Edema Course - Vital Signs Text/Narrative:: Labs/Abd-pelvis CT result was discussed with patient NS 1 L bolus Zofran 4 mg IV x1 Morphine 2 mg IV x1 Tramadol 100 mg po x1 Last Recorded V/S: Last Vital Signs Temp 36.8 C 12/23/19 19:52 Pulse 78 12/23/19 19:52 Resp 16 12/23/19 19:52 BP 134/76 12/23/19 19:52 Pulse Ox 98 12/23/19 19:52 - Orders/Labs/Meds Orders: Active Orders 24 hr Category Date Time Status Abdomen Pelvis w Cont [CT] Stat Exams 12/23/19 20:37 Taken UA W/MICROSCOPIC [URIN] Stat Lab 12/23/19 20:37 Ordered Sodium Chloride 0.9% [Normal Saline] 1,000 ml Med 12/23/19 20:45 Active IV ASDIRECTED Sodium Chloride 0.9% [Saline Flush] Med 12/23/19 20:37 Active 10 ml FLUSH ASDIRECTED PRN Saline Lock Insert [OM.PC] Routine Oth 12/23/19 20:37 Ordered Medication Orders Sodium Chloride (Normal Saline) 1,000 mls @ 999 mls/hr IV ASDIRECTED ED Last Admin: 12/23/19 20:50 Dose: 999 mls/hr Documented by: JANIS Sodium Chloride (Saline Flush) 10 ml FLUSH ASDIRECTED PRN PRN Reason: Keep Vein Open Labs: Laboratory Tests 12/23/19 12/23/19 12/23/19 Range/Units 20:55 20:55 20:55 WBC 6.5 (4.5-12.0) X10-3/uL RBC 4.49 (3.23-5.20) x10(6)uL Hgb 12.0 (11.5-15.5) g/dL Hct 37.3 (30.0-51.3) % MCV 83.1 (80-96) fL MCH 26.8 L (27.7-33.6) pg MCHC 32.2 (32.2-35.4) g/dL RDW 14.9 (11.5-15.5) % Plt Count 277 (125-369) X10(3)uL MPV 8.8 (7.4-10.4) fL Neut % (Auto) 76.3 (46-82) % Lymph % (Auto) 15.2 (13-37) % Russell % (Auto) 5.8 (4-12) % Eos % (Auto) 1 (1.0-5.0) % Baso % (Auto) 2 (0-2) % Neut # (Auto) 4.9 (1.6-8.3) # Lymph # (Auto) 1.0 (0.6-5.0) # Russell # (Auto) 0.4 (0.0-1.3) # Eos # (Auto) 0.1 (0.0-0.8) # Baso # (Auto) 0.1 (0.0-0.2) # Sodium 144 (135-145) mmol/L Potassium 4.1 (3.5-5.3) mmol/L Chloride 106 (100-110) mmol/L Carbon Dioxide 28 (21-32) mmol/L BUN 13 (7-18) mg/dL Creatinine 1.0 (0.55-1.02) mg/dL Est Cr Clr Drug Dosing 35.45 mL/min Estimated GFR (MDRD) 54 L (>60) BUN/Creatinine Ratio 13.0 (9-20) Glucose 118 H (80-116) mg/dL Calcium 9.0 (8.6-10.2) mg/dL Total Bilirubin 0.6 (0.1-1.3) mg/dL AST 17 D (5-25) IU/L ALT 15 D (12-36) U/L Alkaline Phosphatase 104 (56-112) IU/L Total Protein 7.2 (6.0-8.0) g/dL Albumin 3.5 (3.2-4.6) g/dL Globulin 3.7 g/dL Albumin/Globulin Ratio 1.0 Amylase 26 (25-115) U/L Lipase 61 L (73-393) U/L Meds: Medications Generic Name Dose Route Start Last Admin Trade Name Freq PRN Reason Stop Dose Admin Sodium Chloride 1,000 mls @ 999 mls/hr 12/23/19 20:45 12/23/19 20:50 Normal Saline IV 999 mls/hr ASDIRECTED ED Administration Sodium Chloride 10 ml 12/23/19 20:37 Saline Flush FLUSH ASDIRECTED PRN Keep Vein Open Discontinued Medications Generic Name Dose Route Start Last Admin Trade Name Freq PRN Reason Stop Dose Admin Iopamidol 100 ml 12/23/19 21:43 12/23/19 22:21 Isovue-370 (76%) IV 12/23/19 21:44 100 ml . DIRECTED ONE Administration Morphine Sulfate 2 mg 12/23/19 20:41 12/23/19 21:00 Morphine IVPUSH 12/23/19 20:42 2 mg ONETIME ONE Administration Ondansetron HCl 4 mg 12/23/19 20:40 12/23/19 20:59 Zofran IVPUSH 12/23/19 20:41 4 mg ONETIME ONE Administration Tramadol HCl 100 mg 12/23/19 21:05 12/23/19 21:28 Ultram PO 12/23/19 21:06 100 mg ONETIME ONE Administration Departure - Departure Time of Disposition: 23:15 Disposition: Home, Self-Care 01 Condition: Good Clinical Impression: Chronic abdominal pain, GERD (gastroesophageal reflux disease), History of Stacy-en-Y gastric bypass - Discharge Information Instructions: Heartburn, [id number], Hiatal Hernia, Abdominal Pain, Adult, [id number] Referrals: Mir Johnson MD [Primary Care Provider] - Forms: ED Department Discharge Additional Instructions: Continue your preset meds Take you anti nausea medicine as directed Tramadol 50 mg, take 1 tablet and tylenol 1000 mg every 8 hours as needed for pain Keep your [place] appointment on January 17, 2020 Sepsis Event Note (ED) - Evaluation Sepsis Screening Result: No Definite Risk - Focused Exam Vital Signs: Vital Signs Temp Pulse Resp BP Pulse Ox 12/23/19 19:52 36.8 C 78 16 134/76 98 - My Orders Last 24 Hours: My Active Orders 12/23/19 20:37 Abdomen Pelvis w Cont [CT] Stat UA W/MICROSCOPIC [URIN] Stat Sodium Chloride 0.9% [Saline Flush] 10 ml FLUSH ASDIRECTED PRN Saline Lock Insert [OM.PC] Routine 12/23/19 20:45 Sodium Chloride 0.9% [Normal Saline] 1,000 ml IV ASDIRECTED - Assessment/Plan Last 24 Hours: My Active Orders 12/23/19 20:37 Abdomen Pelvis w Cont [CT] Stat UA W/MICROSCOPIC [URIN] Stat Sodium Chloride 0.9% [Saline Flush] 10 ml FLUSH ASDIRECTED PRN Saline Lock Insert [OM.PC] Routine 12/23/19 20:45 Sodium Chloride 0.9% [Normal Saline] 1,000 ml IV ASDIRECTED
== END 2019-12-23 23:42 | disposition home or self-care (01) ==
LOC: FB.ED 19:20
DX: K21.9 Gastro-esophageal reflux disease without esophagitis (principal); I11.0 Hypertensive heart disease with heart failure; I50.9 Heart failure, unspecified; E66.9 Obesity, unspecified; Z68.35 Body mass index [BMI] 35.0-35.9, adult; Z98.84 Bariatric surgery status; Z90.49 Acquired absence of other specified parts of digestive tract; Z90.710 Acquired absence of both cervix and uterus; Z90.722 Acquired absence of ovaries, bilateral; Z88.1 Allergy status to other antibiotic agents; Z88.7 Allergy status to serum and vaccine; Z88.6 Allergy status to analgesic agent; Z88.8 Allergy status to other drugs, medicaments and biological substances; Z88.0 Allergy status to penicillin; Z88.2 Allergy status to sulfonamides; Z88.5 Allergy status to narcotic agent; Z79.899 Other long term (current) drug therapy
CPT/HCPCS: 36415; 74177; 80053; 82150; 83690; 85025; 96361; 96374; 96375; 99284; A9270; J2270; J2405; J7030; Q9967

== ENCOUNTER 2020-02-03 18:18 | Emergency (ER) | payer MEDICARE ==
[2020-02-03] MEDS ORDERED: traMADol 50 MG Tab PO ONE (18:19)
--- NOTE | 2020-02-03 19:07 | EDM.PDOC ---
ED HPI GENERAL MEDICAL PROBLEM - General Stated Complaint: ABDOMINAL PAIN Time Seen by Provider: 02/03/20 18:56 Source of Information: Reports: Patient History Limitations: Reports: No Limitations - History of Present Illness INITIAL COMMENTS - FREE TEXT/NARRATIVE: 74-year-old female with long-standing history of chronic abdominal pain. She has recently (August 2019) had surgery for repair of intestinal officials related to her gastric bypass surgery and continued to have her pain with nausea following this procedure. She was referred to the [facility] and has been seen there with a workup which was performed last week which included a colonoscopy and multiple other tests and go back for additional workup on 02/23/2020. She is currently on tramadol for the chronic pain and this seems to help but apparently she has run out of her tramadol and the pain is not be relieved by Tylenol and she is beginning to have nausea with poor intake. She is currently rating the pain as an 8/10. It is a cramping pain and a sharp pain all in her upper abdomen. This is the same pain that she has been having for quite some time. She is basically just wanting some more tramadol to get her through until she can call Dr. Johnson tomorrow. There are no other associated signs or symptoms. There are no other modifying factors. Onset: Other (Chronic) Duration: Chronic Location: Reports: Abdomen Quality: Reports: Sharp, Other (Cramping) Severity: Moderate (to severe) Improves with: Reports: None Worsens with: Reports: Other (Palpation) Context: Reports: Other (As above) Associated Symptoms: Reports: Nausea/Vomiting Treatments UPSETTER: Reports: Acetaminophen lower5 abdomen pain Pain Score (Numeric/FACES): 8 - Related Data Allergies Allergy/AdvReac Type Severity Reaction Status Date / Time ciprofloxacin [From Cipro] Allergy Itching Verified 02/03/20 20:31 erythromycin base Allergy Hives Verified 02/03/20 20:31 [Erythromycin Base] ibuprofen Allergy Other Verified 02/03/20 20:31 Influenza Virus Vaccines Allergy Nausea and Verified 02/03/20 20:31 Vomiting ketorolac [From Toradol] Allergy Nausea and Verified 02/03/20 20:31 Vomiting NSAIDS (Non-Steroidal Allergy Other Verified 02/03/20 20:31 Anti-Inflamma Penicillins Allergy Hives Verified 02/03/20 20:31 Sulfa (Sulfonamide Allergy Hives Verified 02/03/20 20:31 Antibiotics) Tetracyclines Allergy Hives Verified 02/03/20 20:31 Home Meds: Home Meds Esomeprazole [NexIUM] 20 mg PO BID 02/03/20 [History] Ondansetron [Ondansetron Odt] 4 mg PO TID 02/03/20 [History] Sertraline [Zoloft] 100 mg PO DAILY 02/03/20 [History] traMADol [Ultram] 100 mg PO Q6H PRN 02/03/20 [History] Past Medical History HEENT History: Reports: Cataract, Hard of Hearing, Other (See Below) Other HEENT History: DRY EYES. Left cochlear implant. Cardiovascular History: Reports: Heart Failure, Heart Murmur, Hypertension, Other (See Below) Other Cardiovascular History: AORTIC STENOSIS, ASCENDING AORTA DILATION, DIASTOLIC DYSFUNCTION, HEARTBEAT ABNORMALITY, PERIPHERAL VASCULAR DISEASE Respiratory History: Reports: Pneumonia, Recurrent, Other (See Below) Other Respiratory History: PULMONARY NODULE Gastrointestinal History: Reports: GERD, Other (See Below) (Chronic abdominal pain) Other Gastrointestinal History: hx abdominal fistula, bleeding ulcer in stomach Genitourinary History: Reports: Other (See Below) Other Genitourinary History: cyst on R kidney Other EPIC PROFESSIONAL History: Musculoskeletal History: Reports: Arthritis, Fracture, Osteoporosis Other Musculoskeletal History: LUMBAGO, hx fx R hip, L femur, L wrist, Neurological History: Reports: Neuropathy, Peripheral Other Neuro History: Bilateral peripheral neuropathy. Psychiatric History: Reports: Anxiety, Depression Other Psychiatric History: Insomnia. Endocrine/Metabolic History: Reports: Obesity/BMI 30+, Osteoporosis Other Endocrine/Metabolic History: IMPAIRED GLUCOSE TOLERANCE Hematologic History: Reports: Anemia, Blood Transfusion(s) Dermatologic History: Reports: Cellulitis - Infectious Disease History Infectious Disease History: Reports: Measles, Mumps Other Infectious Disease History: staff infection R ear, unsure if MRSA - Past Surgical History Head Surgeries/Procedures: Reports: None HEENT Surgical History: Reports: Cataract Surgery, Oral Surgery Other HEENT Surgeries/Procedures: bilat cataract surgery, GI Surgical History: Reports: Appendectomy, Bariatric Procedure, Cholecystectomy, Colonoscopy, EGD, Other (See Below) Other GI Surgeries/Procedures: abd fistula repaired, 09/04/2019 Female Surgical History: Reports: Hysterectomy, Salpingo-Oophorectomy, Tubal Ligation Musculoskeletal Surgical History: Reports: Carpal Tunnel, Hip Replacement, ORIF, Shoulder Surgery Other Musculoskeletal Surgeries/Procedures:: bilat SHOULDER ARTHROPLASTY, ORIF to L wrist, pins removed, Social & Family History - Family History Family Medical History: No Pertinent Family History HEENT: Reports: Glaucoma, Macular Degeneration Cardiac: Reports: Hypertension Endocrine/Metabolic: Reports: Diabetes Mellitus, Type 3c Oncologic: Reports: Brain, Colon, Lung Other Oncologic Family History: THROAT, LIVER, STOMACH - Tobacco Use Tobacco Use Status *Q: Unknown Ever Used Tobacco (Nonsmoker) - Caffeine Use Caffeine Use: Reports: None Other Caffeine Use: states that she takes powerade. - Alcohol Use Alcohol Use History: No - Living Situation & Occupation Living situation: Reports: Alone ED ROS GENERAL - Review of Systems Review Of Systems: See Below Constitutional: Reports: No Symptoms HEENT: Reports: No Symptoms Respiratory: Reports: No Symptoms Cardiovascular: Reports: No Symptoms GI/Abdominal: Reports: Abdominal Pain, Nausea : Reports: No Symptoms Musculoskeletal: Reports: No Symptoms Skin: Reports: No Symptoms Neurological: Reports: No Symptoms Hematologic/Lymphatic: Reports: No Symptoms Immunologic: Reports: No Symptoms ED EXAM, GENERAL - Physical Exam Exam: See Below Exam Limited By: No Limitations General Appearance: Alert, Mild Distress (Appears in some pain), Obese Eye Exam: Bilateral Eye: EOMI, Normal Inspection Ears: Normal External Exam, Hearing Loss Ear Exam: Bilateral Ear: Auricle Normal Nose: Normal Inspection, Normal Mucosa, No Blood Throat/Mouth: Normal Inspection, Normal Voice, No Airway Compromise, Other (edentulous) Head: Atraumatic, Normocephalic Neck: Normal Inspection, Supple, Non-Tender, Full Range of Motion Respiratory/Chest: No Respiratory Distress, Lungs Clear, Normal Breath Sounds, No Accessory Muscle Use, Chest Non-Tender Cardiovascular: Normal Peripheral Pulses, Regular Rate, Rhythm, No JVD Peripheral Pulses: 2+: Radial (L), Radial (R), Dorsalis Pedis (L), Dorsalis Pedis (R) GI/Abdominal: Normal Bowel Sounds, Soft, No Mass, Tender (In her upper, central abdomen). No: Rigid, Rebound Back Exam: Normal Inspection, Full Range of Motion. No: CVA Tenderness (R), CVA Tenderness (L) Extremities: Normal Inspection, Normal Range of Motion, Non-Tender, No Pedal Edema, Normal Capillary Refill Neurological: Alert, Oriented, CN II-XII Intact, Normal Cognition, No Motor/Sensory Deficits Skin Exam: Warm, Dry, Intact, Normal Color, No Rash Course - Vital Signs Last Recorded V/S: Last Vital Signs Temp 36.0 C L 02/03/20 18:20 Pulse 84 02/03/20 18:20 Resp 18 02/03/20 18:20 BP 98/76 02/03/20 18:20 Pulse Ox 98 02/03/20 18:20 - Re-Assessments/Exams Free Text/Narrative Re-Assessment/Exam: 02/03/20 19:05: Patient with chronic abdominal pain. Her exam is reassuring. There is no evidence of any acute process. She has run out of her tramadol and was getting relief of her pain from the tramadol. She has had multiple workups and recently has been referred to the [facility] and is supposed to be following back up with them on 02/23/2020. She was just seen last week and had a colonoscopy and other tests performed. There is no indication for testing at this point and the patient actually does not want testing. She is here primarily for her tramadol until she can see Dr. Johnson tomorrow. I will give the patient a take home pack tramadol (4 tablets) and she will need to follow-up with Dr. Johnson for any further pain medications. Departure - Departure Time of Disposition: 19:15 Disposition: Home, Self-Care 01 Condition: Good (Stable) Clinical Impression: Chronic abdominal pain - Discharge Information Instructions: Chronic Pain, Adult Referrals: Mir Johnson MD [Primary Care Provider] - Forms: ED Department Discharge Additional Instructions: Back to the emergency department for unrelenting vomiting, high fever or other concerning sign or symptom. You were given a take-home pack of tramadol. He will need to go through Dr. Johnson tomorrow for any further pain medications. Sepsis Event Note (ED) - Focused Exam Vital Signs: Vital Signs Temp Pulse Resp BP Pulse Ox 02/03/20 18:20 36.0 C L 84 18 98/76 98
[2020-02-03 20:30] VITALS: BP 98/76; PULSE 84
== END 2020-02-03 19:20 | disposition home or self-care (01) ==
LOC: FB.ED 18:18
DX: R10.10 Upper abdominal pain, unspecified (principal); G89.29 Other chronic pain; I11.0 Hypertensive heart disease with heart failure; I50.9 Heart failure, unspecified; K21.9 Gastro-esophageal reflux disease without esophagitis; Z79.899 Other long term (current) drug therapy; F41.9 Anxiety disorder, unspecified; F32.9 Major depressive disorder, single episode, unspecified; G62.9 Polyneuropathy, unspecified; Z88.1 Allergy status to other antibiotic agents; Z88.6 Allergy status to analgesic agent; Z88.7 Allergy status to serum and vaccine; Z88.0 Allergy status to penicillin; Z88.2 Allergy status to sulfonamides
CPT/HCPCS: 99283; A9270

== ENCOUNTER 2020-04-05 10:48 | Emergency (ER) | payer MEDICARE ==
--- NOTE | 2020-04-05 11:21 | EDM.PDOC ---
ED HPI GENERAL MEDICAL PROBLEM - General Chief Complaint: General Stated Complaint: HOLE IN STOMACH Time Seen by Provider: 04/05/20 11:18 Source of Information: Reports: Patient History Limitations: Reports: No Limitations - History of Present Illness INITIAL COMMENTS - FREE TEXT/NARRATIVE: 74 yo with chronic abdominal pain. Has a h/o enterocutaneous fistula,[facility].She sees Dr Johnson. She is supposed to take 100 mg of Tramadol 4 times a day. the pharmacy record shows that she is due to fill it on the . ABDOMEN Pain Score (Numeric/FACES): 8 - Related Data Allergies Allergy/AdvReac Type Severity Reaction Status Date / Time ciprofloxacin [From Cipro] Allergy Itching Verified 02/03/20 20:31 erythromycin base Allergy Hives Verified 02/03/20 20:31 [Erythromycin Base] ibuprofen Allergy Other Verified 02/03/20 20:31 Influenza Virus Vaccines Allergy Nausea and Verified 02/03/20 20:31 Vomiting ketorolac [From Toradol] Allergy Nausea and Verified 02/03/20 20:31 Vomiting NSAIDS (Non-Steroidal Allergy Other Verified 02/03/20 20:31 Anti-Inflamma Penicillins Allergy Hives Verified 02/03/20 20:31 Sulfa (Sulfonamide Allergy Hives Verified 02/03/20 20:31 Antibiotics) Tetracyclines Allergy Hives Verified 02/03/20 20:31 Home Meds: Home Meds Esomeprazole [NexIUM] 20 mg PO BID 02/03/20 [History] Ondansetron [Ondansetron Odt] 4 mg PO TID 02/03/20 [History] Sertraline [Zoloft] 100 mg PO DAILY 02/03/20 [History] traMADol [Ultram] 100 mg PO Q6H PRN 02/03/20 [History] Past Medical History HEENT History: Reports: Cataract, Hard of Hearing, Other (See Below) Other HEENT History: DRY EYES. Left cochlear implant. Cardiovascular History: Reports: Heart Failure, Heart Murmur, Hypertension, Other (See Below) Other Cardiovascular History: AORTIC STENOSIS, ASCENDING AORTA DILATION, DIASTOLIC DYSFUNCTION, HEARTBEAT ABNORMALITY, PERIPHERAL VASCULAR DISEASE Respiratory History: Reports: Pneumonia, Recurrent, Other (See Below) Other Respiratory History: PULMONARY NODULE Gastrointestinal History: Reports: GERD, Other (See Below) (Chronic abdominal pain) Other Gastrointestinal History: hx abdominal fistula, bleeding ulcer in stomach Genitourinary History: Reports: Other (See Below) Other Genitourinary History: cyst on R kidney 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 Psychiatric History: Reports: Anxiety, Depression Other Psychiatric History: Insomnia. Endocrine/Metabolic History: Reports: Obesity/BMI 30+, Osteoporosis Other Endocrine/Metabolic History: IMPAIRED GLUCOSE TOLERANCE Hematologic History: Reports: Anemia, Blood Transfusion(s) Dermatologic History: Reports: Cellulitis - Infectious Disease History Infectious Disease History: Reports: Measles, Mumps Other Infectious Disease History: staff infection R ear, unsure if MRSA - Past Surgical History Head Surgeries/Procedures: Reports: None HEENT Surgical History: Reports: Cataract Surgery, Oral Surgery Other HEENT Surgeries/Procedures: bilat cataract surgery, GI Surgical History: Reports: Appendectomy, Bariatric Procedure, Cholecystectomy, Colonoscopy, EGD, Other (See Below) Other GI Surgeries/Procedures: abd fistula repaired, 09/04/2019 Female Surgical History: Reports: Hysterectomy, Salpingo-Oophorectomy, Tubal Ligation Musculoskeletal Surgical History: Reports: Carpal Tunnel, Hip Replacement, ORIF, Shoulder Surgery Other Musculoskeletal Surgeries/Procedures:: bilat SHOULDER ARTHROPLASTY, ORIF to L wrist, pins removed, Social & Family History - Family History Family Medical History: No Pertinent Family History HEENT: Reports: Glaucoma, Macular Degeneration Cardiac: Reports: Hypertension Endocrine/Metabolic: Reports: Diabetes Mellitus, Type 3c Oncologic: Reports: Brain, Colon, Lung Other Oncologic Family History: THROAT, LIVER, STOMACH - Caffeine Use Caffeine Use: Reports: None Other Caffeine Use: states that she takes powerade. - Living Situation & Occupation Living situation: Reports: Alone ED ROS GENERAL - Review of Systems Review Of Systems: Comprehensive ROS is negative, except as noted in HPI. ED EXAM, GENERAL - Physical Exam Exam: See Below Exam Limited By: No Limitations General Appearance: Alert, WD/WN Course - Vital Signs Last Recorded V/S: Last Vital Signs Temp 97.6 F 04/05/20 11:00 Pulse 110 H 04/05/20 11:00 Resp 20 04/05/20 11:00 BP 131/86 04/05/20 11:00 Pulse Ox 96 04/05/20 11:00 Departure - Departure Time of Disposition: 16:12 Disposition: Home, Self-Care 01 Condition: Good Clinical Impression: Pain - Discharge Information Referrals: PCP,None [Primary Care Provider] - Forms: ED Department Discharge Sepsis Event Note (ED) - Focused Exam Vital Signs: Vital Signs Temp Pulse Resp BP Pulse Ox 04/05/20 11:00 97.6 F 110 H 20 131/86 96 - Problem List & Annotations (1) Abdominal pain SNOMED Code(s): 94058722 Code(s): R10.9 - UNSPECIFIED ABDOMINAL PAIN Status: Acute - Problem List Review Problem List Initiated/Reviewed/Updated: Yes - Assessment/Plan Plan: I advsisd her to contact her PCP to discuss pain control.
[2020-04-05 11:38] VITALS: BP 131/86; PULSE 110
== END 2020-04-05 11:15 | disposition home or self-care (01) ==
LOC: FB.ED 10:48
DX: R10.9 Unspecified abdominal pain (principal); I11.0 Hypertensive heart disease with heart failure; I50.9 Heart failure, unspecified; E66.9 Obesity, unspecified; K21.9 Gastro-esophageal reflux disease without esophagitis; Z88.1 Allergy status to other antibiotic agents; Z88.7 Allergy status to serum and vaccine; Z88.6 Allergy status to analgesic agent; Z88.0 Allergy status to penicillin; Z88.2 Allergy status to sulfonamides; Z88.8 Allergy status to other drugs, medicaments and biological substances; Z79.899 Other long term (current) drug therapy
CPT/HCPCS: 99283

== ENCOUNTER 2020-04-06 21:00 | Emergency (ER) | payer MEDICARE ==
[2020-04-06] MEDS ORDERED: Ketorolac 30 MG/ML SDV IVPUSH ONE (21:18)
[2020-04-06] MEDS ORDERED: Sodium Chloride 0.9% 1,000 ML IV ONE (21:18)
[2020-04-06] MEDS ORDERED: Ondansetron 4 MG/2 ML SDV IVPUSH ONE (21:18)
[2020-04-06] MEDS ORDERED: Potassium Chloride 20 MEQ Tab.ER PO ONE (22:23)
[2020-04-06] MEDS ORDERED: diphenhydrAMINE 50 MG/ML SDV IVPUSH ONE (22:23)
[2020-04-06] MEDS ORDERED: Acetaminophen 500 MG Tab PO ONE (22:38)
--- NOTE | 2020-04-06 22:43 | EDM.PDOC ---
ED HPI GENERAL MEDICAL PROBLEM - General Chief Complaint: Abdominal Pain Stated Complaint: ABDOMINAL PAIN Time Seen by Provider: 04/06/20 21:10 Source of Information: Reports: Patient History Limitations: Reports: No Limitations - History of Present Illness INITIAL COMMENTS - FREE TEXT/NARRATIVE: c/o bleeding ulcer pt states she has a hole in her stomach and hold her fingers 6 cm apart to indicate the size says she was at [place] in mid Dec for upper endoscopy, is to return the last week of this month for a repeat endoscopy, and then "they are going to decide what to do" says she had bleeding from her rectum 6d ago, that last 3d, said she had bright blood per rectum (however hemoccult is neg tonight) then had GI upset and has been holding emesis bag altho did eat toast tonight labs are neg tonight except K 3.3 pt was in ED yesterday does have appointment with Dr Johnson tomorrow for pain, pt given IV Toradol 15 mg, IV Benadryl 50 mg and PO APAP 1000 mg pt requesting tramadol for pain, told she would to d/w her PCP - Related Data Allergies Allergy/AdvReac Type Severity Reaction Status Date / Time ciprofloxacin [From Cipro] Allergy Itching Verified 02/03/20 20:31 erythromycin base Allergy Hives Verified 02/03/20 20:31 [Erythromycin Base] ibuprofen Allergy Other Verified 02/03/20 20:31 Influenza Virus Vaccines Allergy Nausea and Verified 02/03/20 20:31 Vomiting ketorolac [From Toradol] Allergy Nausea and Verified 02/03/20 20:31 Vomiting NSAIDS (Non-Steroidal Allergy Other Verified 02/03/20 20:31 Anti-Inflamma Penicillins Allergy Hives Verified 02/03/20 20:31 Sulfa (Sulfonamide Allergy Hives Verified 02/03/20 20:31 Antibiotics) Tetracyclines Allergy Hives Verified 02/03/20 20:31 Home Meds: Home Meds Esomeprazole [NexIUM] 20 mg PO BID 02/03/20 [History] Ondansetron [Ondansetron Odt] 4 mg PO TID 02/03/20 [History] Sertraline [Zoloft] 100 mg PO DAILY 02/03/20 [History] traMADol [Ultram] 100 mg PO Q6H PRN 02/03/20 [History] Past Medical History HEENT History: Reports: Cataract, Hard of Hearing, Other (See Below) Other HEENT History: DRY EYES. Left cochlear implant. Cardiovascular History: Reports: Heart Failure, Heart Murmur, Hypertension, Other (See Below) Other Cardiovascular History: AORTIC STENOSIS, ASCENDING AORTA DILATION, DIASTOLIC DYSFUNCTION, HEARTBEAT ABNORMALITY, PERIPHERAL VASCULAR DISEASE Respiratory History: Reports: Pneumonia, Recurrent, Other (See Below) Other Respiratory History: PULMONARY NODULE Gastrointestinal History: Reports: GERD, Other (See Below) (Chronic abdominal pain) Other Gastrointestinal History: hx abdominal fistula, bleeding ulcer in stomach Genitourinary History: Reports: Other (See Below) Other Genitourinary History: cyst on R kidney HUNTER GUIDE History: Reports: Other HUNTER GUIDE History: Musculoskeletal History: Reports: Arthritis, Fracture, Osteoporosis Other Musculoskeletal History: LUMBAGO, hx fx R hip, L femur, L wrist, Neurological History: Reports: Neuropathy, Peripheral Other Neuro History: Bilateral peripheral neuropathy. Psychiatric History: Reports: Anxiety, Depression Other Psychiatric History: Insomnia. Endocrine/Metabolic History: Reports: Obesity/BMI 30+, Osteoporosis Other Endocrine/Metabolic History: IMPAIRED GLUCOSE TOLERANCE Hematologic History: Reports: Anemia, Blood Transfusion(s) Dermatologic History: Reports: Cellulitis - Infectious Disease History Infectious Disease History: Reports: Measles, Mumps Other Infectious Disease History: staff infection R ear, unsure if MRSA - Past Surgical History Head Surgeries/Procedures: Reports: None HEENT Surgical History: Reports: Cataract Surgery, Oral Surgery Other HEENT Surgeries/Procedures: bilat cataract surgery, GI Surgical History: Reports: Appendectomy, Bariatric Procedure, Cholecystectomy, Colonoscopy, EGD, Other (See Below) Other GI Surgeries/Procedures: abd fistula repaired, 09/04/2019 Female Surgical History: Reports: Hysterectomy, Salpingo-Oophorectomy, Tubal Ligation Musculoskeletal Surgical History: Reports: Carpal Tunnel, Hip Replacement, ORIF, Shoulder Surgery Other Musculoskeletal Surgeries/Procedures:: bilat SHOULDER ARTHROPLASTY, ORIF to L wrist, pins removed, Social & Family History - Family History Family Medical History: No Pertinent Family History HEENT: Reports: Glaucoma, Macular Degeneration Cardiac: Reports: Hypertension Endocrine/Metabolic: Reports: Diabetes Mellitus, Type 3c Oncologic: Reports: Brain, Colon, Lung Other Oncologic Family History: THROAT, LIVER, STOMACH - Caffeine Use Caffeine Use: Reports: None Other Caffeine Use: states that she takes powerade. - Living Situation & Occupation Living situation: Reports: Alone ED ROS GENERAL - Review of Systems Review Of Systems: See Below Constitutional: Reports: No Symptoms HEENT: Reports: No Symptoms Respiratory: Reports: No Symptoms Cardiovascular: Reports: No Symptoms Endocrine: Reports: No Symptoms GI/Abdominal: Reports: Abdominal Pain. Denies: Constipation, Diarrhea : Reports: No Symptoms Musculoskeletal: Reports: No Symptoms Skin: Reports: No Symptoms Neurological: Reports: No Symptoms Psychiatric: Reports: No Symptoms Hematologic/Lymphatic: Reports: No Symptoms Immunologic: Reports: No Symptoms ED EXAM, GI/ABD - Physical Exam Exam: See Below Exam Limited By: No Limitations General Appearance: Alert, WD/WN, No Apparent Distress Ears: Other (very KLETSEL DEHE WINTUN (says she has cochlear implant on L)) Nose: Normal Inspection, Normal Mucosa, No Blood Throat/Mouth: Normal Inspection, Normal Voice, No Airway Compromise Head: Atraumatic, Normocephalic Neck: Normal Inspection, Supple, Non-Tender, Full Range of Motion. No: Lymphadenopathy (L) Respiratory/Chest: No Respiratory Distress, Lungs Clear, Normal Breath Sounds Cardiovascular: Regular Rate, Rhythm, No Edema, No Murmur GI/Abdominal Exam: Normal Bowel Sounds, Soft, Other (nonspecific mild tender) Back Exam: Normal Inspection, Full Range of Motion, NT Extremities: Normal Inspection, Normal Range of Motion, Non-Tender, No Pedal Edema, Other (dec'd turgor UEs) Neurological: Alert, Oriented, CN II-XII Intact, No Motor/Sensory Deficits Psychiatric: Anxious Skin Exam: Warm, Dry, Intact, Normal Color, No Rash Lymphatic: No Adenopathy Course - Orders/Labs/Meds Orders: Active Orders 24 hr Category Date Time Status EKG Documentation Completion [RC] ASDIRECTED Care 04/06/20 21:18 Active UA W/MICROSCOPIC [URIN] Stat Lab 04/06/20 21:18 Ordered EKG 12 Lead [EK] Routine Ther 04/06/20 21:18 Ordered Labs: Laboratory Tests 04/06/20 04/06/20 04/06/20 Range/Units 21:20 21:20 21:20 WBC 3.4 (3.0-10.3) x10-3/uL RBC 4.05 (3.60-5.20) x10(6)uL Hgb 9.3 L (11.4-15.5) g/dL Hct 30.7 L (34.2-48.2) % MCV 75.9 L (76.7-100.5) fL MCH 23.1 L (23.9-33.9) pg MCHC 30.4 L (31.9-34.8) g/dL RDW 18.0 H (12.3-16.5) % Plt Count 256 (151-488) x10(3)uL MPV 9.1 (7.1-12.4) fL Neut % (Auto) 69.7 (30.8-76.2) % Lymph % (Auto) 18.8 (18.4-52.1) % [place] % (Auto) 10.5 (4.4-15.7) % Eos % (Auto) 0.4 L (0.6-8.1) % Baso % (Auto) 0.6 (0.2-1.5) % Neut # (Auto) 2.4 (1.5-6.3) x10-3/uL Lymph # (Auto) 0.6 L (1.0-4.4) x10-3/uL [place] # (Auto) 0.4 (0.3-1.0) x10-3/uL Eos # (Auto) 0.0 (0.0-0.8) x10-3/uL Baso # (Auto) 0.0 (0.0-0.1) x10-3/uL PT (9.0-11.1) sec INR (1.00-1.24) Sodium 143 (135-145) mmol/L Potassium 3.3 L (3.5-5.3) mmol/L Chloride 105 (100-110) mmol/L Carbon Dioxide 29 (21-32) mmol/L BUN 7 (7-18) mg/dL Creatinine 1.0 (0.55-1.02) mg/dL Est Cr Clr Drug Dosing TNP Estimated GFR (MDRD) 54 L (>60) BUN/Creatinine Ratio 7.0 L (9-20) Glucose 103 (80-116) mg/dL Calcium 9.1 (8.6-10.2) mg/dL Total Bilirubin 0.8 (0.1-1.3) mg/dL AST 18 (5-25) IU/L ALT 15 (12-36) U/L Alkaline Phosphatase 65 (56-112) IU/L Troponin I 18.1 (4.0-60.3) pg/mL C-Reactive Protein 0.6 (0.5-0.9) mg/dL Total Protein 6.6 (6.0-8.0) g/dL Albumin 3.4 (3.2-4.6) g/dL Globulin 3.2 g/dL Albumin/Globulin Ratio 1.1 Lipase 20 L (73-393) U/L TSH, Ultra Sensitive 3.32 (0.36-3.74) IU/mL 04/06/20 Range/Units 21:20 WBC (3.0-10.3) x10-3/uL RBC (3.60-5.20) x10(6)uL Hgb (11.4-15.5) g/dL Hct (34.2-48.2) % MCV (76.7-100.5) fL MCH (23.9-33.9) pg MCHC (31.9-34.8) g/dL RDW (12.3-16.5) % Plt Count (151-488) x10(3)uL MPV (7.1-12.4) fL Neut % (Auto) (30.8-76.2) % Lymph % (Auto) (18.4-52.1) % [place] % (Auto) (4.4-15.7) % Eos % (Auto) (0.6-8.1) % Baso % (Auto) (0.2-1.5) % Neut # (Auto) (1.5-6.3) x10-3/uL Lymph # (Auto) (1.0-4.4) x10-3/uL [place] # (Auto) (0.3-1.0) x10-3/uL Eos # (Auto) (0.0-0.8) x10-3/uL Baso # (Auto) (0.0-0.1) x10-3/uL PT 12.5 H (9.0-11.1) sec INR 1.17 (1.00-1.24) Sodium (135-145) mmol/L Potassium (3.5-5.3) mmol/L Chloride (100-110) mmol/L Carbon Dioxide (21-32) mmol/L BUN (7-18) mg/dL Creatinine (0.55-1.02) mg/dL Est Cr Clr Drug Dosing Estimated GFR (MDRD) (>60) BUN/Creatinine Ratio (9-20) Glucose (80-116) mg/dL Calcium (8.6-10.2) mg/dL Total Bilirubin (0.1-1.3) mg/dL AST (5-25) IU/L ALT (12-36) U/L Alkaline Phosphatase (56-112) IU/L Troponin I (4.0-60.3) pg/mL C-Reactive Protein (0.5-0.9) mg/dL Total Protein (6.0-8.0) g/dL Albumin (3.2-4.6) g/dL Globulin g/dL Albumin/Globulin Ratio Lipase (73-393) U/L TSH, Ultra Sensitive (0.36-3.74) IU/mL Meds: Medications Discontinued Medications Generic Name Dose Route Start Last Admin Trade Name Freq PRN Reason Stop Dose Admin Diphenhydramine HCl 50 mg 04/06/20 22:23 04/06/20 22:35 Benadryl IVPUSH 04/06/20 22:24 50 mg ONETIME ONE Administration Sodium Chloride 1,000 mls @ 999 mls/hr 04/06/20 21:18 04/06/20 21:30 Normal Saline IV 04/06/20 22:18 999 mls/hr .BOLUS ONE Administration Ketorolac Tromethamine 15 mg 04/06/20 21:18 04/06/20 21:37 Toradol IVPUSH 04/06/20 21:19 15 mg ONETIME ONE Administration Ondansetron HCl 4 mg 04/06/20 21:18 04/06/20 21:42 Zofran IVPUSH 04/06/20 21:19 4 mg ONETIME ONE Administration Potassium Chloride 40 meq 04/06/20 22:23 04/06/20 22:33 Klor-Con M20 PO 04/06/20 22:24 40 meq ONETIME ONE Administration - Re-Assessments/Exams Free Text/Narrative Re-Assessment/Exam: 01/17/21 22:48 pt appears to be doing, no evidence of GI bleed on exam, additional management as per Dr Johnson tomorrow pt has a high anxiety level, possibly drug seeking behavior Departure - Departure Time of Disposition: 22:38 Disposition: Home, Self-Care 01 Condition: Good Clinical Impression: Abdominal cramping, Hypokalemia - Discharge Information *PRESCRIPTION DRUG MONITORING PROGRAM REVIEWED*: Not Applicable *COPY OF PRESCRIPTION DRUG MONITORING REPORT IN PATIENT MANUEL: Not Applicable Referrals: PCP,None [Primary Care Provider] - Additional Instructions: Use moist heat in tub or shower for 10 minutes 4 times a day for several days. Continue your regular medications. For discomfort, take acetaminophen 325 mg 2 tabs every 4-6 hours as needed. Eat 3 times a day, even if it is a small amount. See Dr Johnson tomorrow as scheduled. - My Orders Last 24 Hours: My Active Orders 04/06/20 21:18 EKG Documentation Completion [RC] ASDIRECTED UA W/MICROSCOPIC [URIN] Stat EKG 12 Lead [EK] Routine - Assessment/Plan Last 24 Hours: My Active Orders 04/06/20 21:18 EKG Documentation Completion [RC] ASDIRECTED UA W/MICROSCOPIC [URIN] Stat EKG 12 Lead [EK] Routine
[2020-04-09 05:59] VITALS: BP 137/74
[2020-04-09 06:01] VITALS: PULSE 68
== END 2020-04-07 00:20 | disposition home or self-care (01) ==
LOC: FB.ED 21:00
DX: R10.9 Unspecified abdominal pain (principal); E87.6 Hypokalemia; I11.0 Hypertensive heart disease with heart failure; I50.9 Heart failure, unspecified; K21.9 Gastro-esophageal reflux disease without esophagitis; G62.9 Polyneuropathy, unspecified; E66.9 Obesity, unspecified; Z88.1 Allergy status to other antibiotic agents; Z88.6 Allergy status to analgesic agent; Z88.7 Allergy status to serum and vaccine; Z88.5 Allergy status to narcotic agent; Z88.0 Allergy status to penicillin; Z88.2 Allergy status to sulfonamides; Z79.899 Other long term (current) drug therapy
CPT/HCPCS: 36415; 80053; 82272; 83690; 84443; 84484; 85025; 85610; 86140; 96374; 96375; 99284; 99284-25; A9270-GY; J1200; J1885; J2405; J7030

== ENCOUNTER 2020-04-21 09:34 | Inpatient (IN) | payer MEDICARE ==
[2020-04-21] MEDS: AA 5%/Calcium/D15W/Lytes 1,000 ML IV SCH (17:27)
--- NOTE | 2020-04-21 19:50 | PCM.HP.2 ---
H&P History of Present Illness - General Date of Service: 04/21/20 Admit Problem/Dx: Admission Diagnosis/Problem Admission Diagnosis/Problem Weakness Source of Information: Patient, Old Records, Provider History Limitations: Reports: No Limitations - History of Present Illness Initial Comments - Free Text/Narative: 74-year-old lady was transferred from [facility]. Has an extensive medical history regarding her gastrointestinal tract with several surgeries including loop gastric bypass in the 1970s and a revision to Stacy-en-Y in the . She also had a GG fistula after endoscopic procedure in August 2019 and a 1 cm GJ ulcer after endoscopic repair in August 2019, she now has a large 2/3 circumferential ulcer at the GJ anastomosis seen on EGD in February 2020. She presented to the emergency department at [facility] on April 14, 2020 and was evaluated and found to need surgery. However, she has sufficient nutritional status secondary to severe nausea, vomiting, diarrhea, malabsorption. She was transferred here for 1 week of TPN and is scheduled for corrective surgery on 04/28/2020. Onset of Symptoms: Reports: Gradual Abdominal Pain Score (Numeric/FACES): 7 - Related Data Allergies/Adverse Reactions: Allergies Allergy/AdvReac Type Severity Reaction Status Date / Time ciprofloxacin [From Cipro] Allergy Itching Verified 04/09/20 06:34 erythromycin base Allergy Hives Verified 04/09/20 06:34 [Erythromycin Base] ibuprofen Allergy Other Verified 04/09/20 06:34 Influenza Virus Vaccines Allergy Nausea and Verified 04/09/20 06:34 Vomiting ketorolac [From Toradol] Allergy Nausea and Verified 04/09/20 06:34 Vomiting NSAIDS (Non-Steroidal Allergy Other Verified 04/09/20 06:34 Anti-Inflamma Penicillins Allergy Hives Verified 04/09/20 06:34 Sulfa (Sulfonamide Allergy Hives Verified 04/09/20 06:34 Antibiotics) Tetracyclines Allergy Hives Verified 04/09/20 06:34 Home Medications: Home Meds Sertraline [Zoloft] 100 mg PO DAILY 02/03/20 [History] AA 5%/Calcium/D15W/Lytes [Clinimix E 5%-D15W] 1,000 ml IV DAILY 04/21/20 [History] Beta-Carotene [Beta Carotene] 25,000 unit PO DAILY 04/21/20 [History] Beta-Carotene [Beta Carotene] 100,000 unit PO DAILY 04/21/20 [History] Cholecalciferol (Vitamin D3) [Vitamin D3] 25 mcg PO DAILY 04/21/20 [History] Ergocalciferol (Vitamin D2) [Vitamin D2] 50,000 unit PO DAILY 04/21/20 [History] Multivitamins/Min/Ca/FA/Iron [Thera-M] 1 tab PO DAILY 04/21/20 [History] Pantoprazole Sodium [Protonix] 40 mg PO BIDAC 04/21/20 [History] Sucralfate 1 gm PO QIDACANDBED 04/21/20 [History] Temazepam 30 mg PO BEDTIME 04/21/20 [History] Past Medical History HEENT History: Reports: Cataract, Hard of Hearing, Other (See Below) Other HEENT History: Dry eyes. Left cochlear implant. Wears hearing aid. Cardiovascular History: Reports: Heart Failure, Heart Murmur, Hypertension, Other (See Below) Other Cardiovascular History: Aortic stenosis. Ascending aorta dilation. Diastolic dysfunction. Heartbeat abnormality. Peripheral vascular disease. Respiratory History: Reports: Pneumonia, Recurrent, Other (See Below) Other Respiratory History: Pulmonary nodule. Gastrointestinal History: Reports: GERD, Other (See Below) Other Gastrointestinal History: History of abdominal fistula. Bleeding ulcer in stomach. Genitourinary History: Reports: Other (See Below) Other Genitourinary History: Cyst on right kidney. 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 History of fracture right hip, left femur, left wrist. Neurological History: Reports: Neuropathy, Peripheral Other Neuro History: Bilateral peripheral neuropathy. Psychiatric History: Reports: Anxiety, Depression Other Psychiatric History: Insomnia. Endocrine/Metabolic History: Reports: Obesity/BMI 30+, Osteoporosis Other Endocrine/Metabolic History: Impaired glucose tolerance. Hematologic History: Reports: Anemia, Blood Transfusion(s) Dermatologic History: Reports: Cellulitis - Infectious Disease History Infectious Disease History: Reports: Measles, Mumps Other Infectious Disease History: Staph infection right ear, unsure if MRSA. - Past Surgical History Head Surgeries/Procedures: Reports: None HEENT Surgical History: Reports: Cataract Surgery, Oral Surgery Other HEENT Surgeries/Procedures: bilat cataract surgery, Cardiovascular Surgical History: Reports: None GI Surgical History: Reports: Appendectomy, Bariatric Procedure, Cholecystectomy, Colonoscopy, EGD, Other (See Below) Other GI Surgeries/Procedures: abd fistula repaired, 09/04/2019 Female Surgical History: Reports: Hysterectomy, Salpingo-Oophorectomy, Tubal Ligation Endocrine Surgical History: Reports: None Neurological Surgical History: Reports: None Musculoskeletal Surgical History: Reports: Carpal Tunnel, Hip Replacement, ORIF, Shoulder Surgery Other Musculoskeletal Surgeries/Procedures:: bilat SHOULDER ARTHROPLASTY, ORIF to L wrist, pins removed, Social & Family History - Family History Family Medical History: No Pertinent Family History HEENT: Reports: Glaucoma, Macular Degeneration Cardiac: Reports: Hypertension Endocrine/Metabolic: Reports: Diabetes Mellitus, Type 3c Oncologic: Reports: Brain, Colon, Lung Other Oncologic Family History: Throat. Liver. Stomach. - Tobacco Use Tobacco Use Status *Q: Never Tobacco User - Caffeine Use Caffeine Use: Reports: None Other Caffeine Use: states that she takes powerade. - Recreational Drug Use Recreational Drug Use: No - Living Situation & Occupation Living situation: Reports: Alone H&P Review of Systems - Review of Systems: Review Of Systems: See Below General: Reports: Weakness, Fatigue, Weight Loss HEENT: Reports: No Symptoms Pulmonary: Reports: No Symptoms Cardiovascular: Reports: No Symptoms Gastrointestinal: Reports: Abdominal Pain, Black Stool, Diarrhea, Melena, Nausea Musculoskeletal: Reports: No Symptoms Skin: Reports: No Symptoms Neurological: Reports: No Symptoms Hematologic/Lymphatic: Reports: No Symptoms Immunologic: Reports: No Symptoms Exam - Exam Exam: See Below - Vital Signs Vital Signs: Last Vital Signs Temp 36.9 C 04/21/20 15:48 Pulse 73 04/21/20 15:48 Resp 18 04/21/20 15:48 BP 122/58 L 04/21/20 15:48 Pulse Ox 98 04/21/20 15:48 Weight: 70.579 kg - Exam Quality Assessment: Supplemental Oxygen, Central Line/PICC General: Alert, Oriented, Cooperative HEENT: Other (Difficulty hearing, hearing aid in the left ear) Neck: Supple Lungs: Clear to Auscultation Cardiovascular: Regular Rate, Regular Rhythm, Systolic Murmur GI/Abdominal Exam: Soft, Tender, Abnormal Bowel Sounds Back Exam: CVA Tenderness (R), CVA Tenderness (L) Extremities: Normal Inspection Peripheral Pulses: 2+: Radial (L), Radial (R), Dorsalis Pedis (L), Dorsalis Pedis (R) Skin: Warm, Dry Neurological: Normal Speech, Normal Tone, Sensation Intact Neuro Extensive - Mental Status: Alert, Oriented x3, Normal Mood/Affect, Normal Cognition Psychiatric: Alert, Normal Affect, Normal Mood Sepsis Event Note - Evaluation Sepsis Screening Result: No Definite Risk - Focused Exam Vital Signs: Vital Signs Temp Pulse Resp BP Pulse Ox 04/21/20 15:48 36.9 C 73 18 122/58 L 98 - Problem List (1) Abdominal pain SNOMED Code(s): 05363671 ICD Code: R10.9 - UNSPECIFIED ABDOMINAL PAIN Status: Acute Current Visit: No (2) Acute blood loss anemia SNOMED Code(s): 026982037 ICD Code: D62 - ACUTE POSTHEMORRHAGIC ANEMIA Status: Acute Current Visit: No (3) Diarrhea SNOMED Code(s): 35218261 ICD Code: R19.7 - DIARRHEA, UNSPECIFIED Status: Acute Current Visit: No (4) GERD (gastroesophageal reflux disease) SNOMED Code(s): 178988837 ICD Code: K21.9 - GASTRO-ESOPHAGEAL REFLUX DISEASE WITHOUT ESOPHAGITIS Sta tus: Acute Current Visit: No (5) Gastritis determined by endoscopy SNOMED Code(s): 6385897, 736099866 ICD Code: K29.70 - GASTRITIS, UNSPECIFIED, WITHOUT BLEEDING Status: Acute Current Visit: No (6) Malnutrition following gastrointestinal surgery SNOMED Code(s): 862375122, 156174130 ICD Code: K91.2 - POSTSURGICAL MALABSORPTION, NOT ELSEWHERE CLASSIFIED Status: Acute Current Visit: Yes Problem List Initiated/Reviewed/Updated: Yes Orders Last 24hrs: Active Orders 24 hr Category Date Time Status Admission Status [Patient Status] [ADT] Routine ADT 04/21/20 15:30 Active Dietary Supplements [RC] QIDACANDBED Care 04/21/20 19:30 Active Full Liquid Diet [DIET] Diet 04/21/20 Breakfast Active CBC WITH AUTO DIFF [HEME] Routine Lab 04/22/20 06:01 Ordered COMPREHENSIVE METABOLIC PN,CMP [CHEM] Routine Lab 04/22/20 00:01 Ordered AA 5%/Calcium/D15W/Lytes [Clinimix E 15] 1,000 ml Med 04/21/20 17:00 Active IV SuMoWeFrSa@1700 Beta-Carotene (Vitamin A) [A-Randall-25] Med 04/22/20 09:00 Ordered 100,000 units PO DAILY Beta-Carotene (Vitamin A) [A-Randall-25] Med 04/22/20 09:00 Ordered 25,000 units PO DAILY Cholecalciferol (Vitamin D3) [Vitamin D3] Med 04/22/20 09:00 Ordered 25 mcg PO DAILY Ergocalciferol (Vitamin D2) [Vitamin D2] Med 04/22/20 09:00 Ordered 50,000 unit PO DAILY Fat Emulsion [Intralipid 20%] 250 ml Med 04/21/20 21:00 Active IV MoWeFrSa@2100 MVI, Adult with Vitamin K [Infuvite Adult] 10 ml Med 04/22/20 17:00 Active AA 5%/Calcium/D15W/Lytes [Clinimix E 5/15] 1,000 ml IV TuTh@1700 Pantoprazole [ProTONIX] Med 04/22/20 07:30 Ordered 40 mg PO BIDAC Sertraline [Zoloft] Med 04/22/20 09:00 Ordered 100 mg PO DAILY Sucralfate [Carafate] Med 04/21/20 21:00 Ordered 1 gm PO QIDACANDBED Temazepam [Temazepam] Med 04/21/20 21:00 Ordered 30 mg PO BEDTIME Medication Orders Beta Carotene (A-Randall-25) 25,000 units PO DAILY ED Beta Carotene (A-Randall-25) 100,000 units PO DAILY ED Cholecalciferol (Vitamin D3) 25 mcg PO DAILY ED Ergocalciferol (Vitamin D2) mg PO DAILY ED Amino Ac/Electrol/Dextrose/Calcium (Clinimix E 5/15) 1,000 mls @ 41.667 mls/hr IV SuMoWeFrSa@1700 ED Last Admin: 04/21/20 17:27 Dose: 41.667 mls/hr Documented by: JANIS Multivitamins/Minerals 10 ml/Amino Ac/Electrol/Dextrose/Calcium 1,010 mls @ 42.083 mls/hr IV TuTh@1700 ED Fat Emulsion Intravenous (Intralipid 20%) 250 mls @ 20.833 mls/hr IV MoWeFrSa@2100 ED Non-Formulary Medication (Temazepam [Temazepam]) 30 mg PO BEDTIME ED Pantoprazole Sodium (Protonix) 40 mg PO BIDAC ED Sertraline HCl (Zoloft) 100 mg PO DAILY [facility] Sucralfate (Carafate) 1 gm PO QIDACANDBED [facility] Assessment/Plan Comment:: Patient was transferred from [facility] for 1 week of TPN to improve malnutrition secondary to nausea, vomiting, melena due to multiple stenosis problems over the last several months stemming from multiple gastric bypass surgeries. Patient will be given TPN, home medications, and monitored while here. Expect transfer back to [place] for surgery proximately 1 week.
[2020-04-21] MEDS: Sodium Chloride 0.9% 10 ML Syringe FLUSH PRN (20:30)
[2020-04-21] MEDS ORDERED: Fat Emulsion 250 ML IV SCH (21:00)
[2020-04-21] MEDS: Sucralfate 1 GM Tab PO SCH (22:18)
[2020-04-21] MEDS: Temazepam 15 MG Cap PO SCH (22:18)
[2020-04-22] MEDS: Sodium Chloride 0.9% 10 ML Syringe FLUSH PRN (06:28)
[2020-04-22] MEDS: Pantoprazole 40 MG Tab.CR PO SCH ×2 (08:40→18:09)
[2020-04-22] MEDS: Ergocalciferol (Vitamin D2) 1.25 MG Cap PO SCH (08:41)
[2020-04-22] MEDS: Sertraline 100 MG Tab PO SCH (08:41)
[2020-04-22] MEDS: Sucralfate 1 GM Tab PO SCH ×4 (08:41→21:01)
[2020-04-22] MEDS ORDERED: Lidocaine 4% 1 each Patch TOP SCH ×2 (09:15→09:17)
--- NOTE | 2020-04-22 09:21 | PCM.PN ---
- General Info Date of Service: 04/22/20 Admission Dx/Problem (Free Text): Admission Diagnosis/Problem Admission Diagnosis/Problem Weakness Functional Status: Reports: Pain Controlled, Ambulating, Urinating. Denies: Tolerating Diet - Review of Systems General: Reports: No Symptoms HEENT: Reports: No Symptoms Pulmonary: Reports: No Symptoms Cardiovascular: Reports: No Symptoms Gastrointestinal: Reports: Abdominal Pain Genitourinary: Reports: No Symptoms Musculoskeletal: Reports: Leg Pain Neurological: Reports: No Symptoms Psychiatric: Reports: No Symptoms - Patient Data Vitals - Most Recent: Last Vital Signs Temp 36.5 C 04/22/20 05:43 Pulse 56 L 04/22/20 05:43 Resp 20 04/22/20 05:43 BP 115/68 04/22/20 05:43 Pulse Ox 99 04/22/20 05:43 Weight - Most Recent: 70.579 kg I&O - Last 24 Hours: Intake & Output 04/21/20 04/22/20 04/22/20 22:59 06:59 14:59 Intake Total 195 Balance 195 Lab Results Last 24 Hours: Laboratory Results - last 24 hr 04/22/20 04/22/20 Range/Units 06:20 06:20 WBC 3.2 (3.0-10.3) x10-3/uL RBC 3.60 (3.60-5.20) x10(6)uL Hgb 8.8 L (11.4-15.5) g/dL Hct 28.8 L (34.2-48.2) % MCV 79.9 (76.7-100.5) fL MCH 24.5 (23.9-33.9) pg MCHC 30.7 L (31.9-34.8) g/dL RDW 21.7 H (12.3-16.5) % Plt Count 216 (151-488) x10(3)uL MPV 9.1 (7.1-12.4) fL Neut % (Auto) 53.9 (30.8-76.2) % Lymph % (Auto) 22.7 (18.4-52.1) % Hughes % (Auto) 16.9 H (4.4-15.7) % Eos % (Auto) 4.6 (0.6-8.1) % Baso % (Auto) 1.9 H (0.2-1.5) % Neut # (Auto) 1.7 (1.5-6.3) x10-3/uL Lymph # (Auto) 0.7 L (1.0-4.4) x10-3/uL Hughes # (Auto) 0.5 (0.3-1.0) x10-3/uL Eos # (Auto) 0.1 (0.0-0.8) x10-3/uL Baso # (Auto) 0.1 (0.0-0.1) x10-3/uL Sodium 141 (135-145) mmol/L Potassium 4.0 (3.5-5.3) mmol/L Chloride 104 (100-110) mmol/L Carbon Dioxide 30 (21-32) mmol/L BUN 16 (7-18) mg/dL Creatinine 0.8 (0.55-1.02) mg/dL Est Cr Clr Drug Dosing 44.31 mL/min Estimated GFR (MDRD) > 60 (>60) BUN/Creatinine Ratio 20.0 (9-20) Glucose 102 (80-116) mg/dL Calcium 9.0 (8.6-10.2) mg/dL Total Bilirubin 1.0 (0.1-1.3) mg/dL AST 107 H D (5-25) IU/L ALT 70 H D (12-36) U/L Alkaline Phosphatase 99 (56-112) IU/L Total Protein 5.7 L (6.0-8.0) g/dL Albumin 2.7 L (3.2-4.6) g/dL Globulin 3.0 g/dL Albumin/Globulin Ratio 0.9 Med Orders - Current: Current Medications Beta Carotene (A-Randall-25) 25,000 units PO DAILY ED Beta Carotene (A-Randall-25) 100,000 units PO DAILY ED Stop: 04/23/20 09:01 Cholecalciferol (Vitamin D3) 25 mcg PO DAILY ED Ergocalciferol (Vitamin D2) 1.25 mg PO DAILY ED Stop: 04/23/20 09:01 Last Admin: 04/22/20 08:41 Dose: 1.25 mg Documented by: Amino Ac/Electrol/Dextrose/Calcium (Clinimix E 08/02) 1,000 mls @ 41.667 mls/hr IV SuMoWeFrSa@1700 [facility] Last Admin: 04/21/20 17:27 Dose: 41.667 mls/hr Documented by: Multivitamins/Minerals 10 ml/Amino Ac/Electrol/Dextrose/Calcium 1,010 mls @ 42.083 mls/hr IV TuTh@1700 [facility] Fat Emulsion Intravenous (Intralipid 20%) 250 mls @ 20.833 mls/hr IV MoWeFrSa@2100 [facility] Last Admin: 04/21/20 23:41 Dose: Not Given Documented by: Lidocaine (Aspercreme 4%) 1 each TOP DAILY [facility] Pantoprazole Sodium (Protonix) 40 mg PO BIDAC [facility] Last Admin: 04/22/20 08:40 Dose: 40 mg Documented by: Sertraline HCl (Zoloft) 100 mg PO DAILY [facility] Last Admin: 04/22/20 08:41 Dose: 100 mg Documented by: Sodium Chloride (Saline Flush) 10 ml FLUSH ASDIRECTED PRN PRN Reason: flush Last Admin: 04/22/20 06:28 Dose: 10 ml Documented by: Sucralfate (Carafate) 1 gm PO QIDACANDBED [facility] Last Admin: 04/22/20 08:41 Dose: 1 gm Documented by: Temazepam (Restoril) 30 mg PO BEDTIME [facility] Last Admin: 04/21/20 22:18 Dose: 30 mg Documented by: - Exam Quality Assessment: Central Line/PICC General: Alert, Oriented, Cooperative, No Acute Distress Neck: Supple Lungs: Clear to Auscultation Cardiovascular: Regular Rate, Regular Rhythm, Murmurs GI/Abdominal Exam: Soft, No Distention, No Abnormal Bruit, Tender Extremities: Joint Swelling (Bruising over the left knee anteriorly) Peripheral Pulses: 2+: Radial (L), Radial (R), Dorsalis Pedis (L), Dorsalis Pedis (R) Skin: Warm, Dry Neurological: No New Focal Deficit Psy/Mental Status: Alert, Normal Affect, Normal Mood Sepsis Event Note - Evaluation Sepsis Screening Result: No Definite Risk - Focused Exam Vital Signs: Vital Signs Temp Pulse Resp BP Pulse Ox 04/22/20 05:43 36.5 C 56 L 20 115/68 99 04/22/20 00:00 36.9 C 58 L 16 110/58 L - Problem List & Annotations (1) Abdominal pain SNOMED Code(s): 55377456 Code(s): R10.9 - UNSPECIFIED ABDOMINAL PAIN Status: Acute Current Visit: No (2) Acute blood loss anemia SNOMED Code(s): 158353189 Code(s): D62 - ACUTE POSTHEMORRHAGIC ANEMIA Status: Acute Current Visit: No (3) Diarrhea SNOMED Code(s): 08743880 Code(s): R19.7 - DIARRHEA, UNSPECIFIED Status: Acute Current Visit: No (4) GERD (gastroesophageal reflux disease) SNOMED Code(s): 290405714 Code(s): K21.9 - GASTRO-ESOPHAGEAL REFLUX DISEASE WITHOUT ESOPHAGITIS Status: Acute Current Visit: No (5) Gastritis determined by endoscopy SNOMED Code(s): 8933880, 601170234 Code(s): K29.70 - GASTRITIS, UNSPECIFIED, WITHOUT BLEEDING Status: Acute Current Visit: No (6) Malnutrition following gastrointestinal surgery SNOMED Code(s): 905062050, 226740501 Code(s): K91.2 - POSTSURGICAL MALABSORPTION, NOT ELSEWHERE CLASSIFIED Status: Acute Current Visit: Yes - Problem List Review Problem List Initiated/Reviewed/Updated: Yes - My Orders Last 24 Hours: My Active Orders 04/21/20 15:30 Admission Status [Patient Status] [ADT] Routine 04/21/20 17:00 AA 5%/Calcium/D15W/Lytes [Clinimix E 5/15] 1,000 ml IV SuMoWeFrSa@1700 04/21/20 19:30 Dietary Supplements [RC] QIDACANDBED 04/21/20 21:00 Fat Emulsion [Intralipid 20%] 250 ml IV MoWeFrSa@2100 Sucralfate [Carafate] 1 gm PO QIDACANDBED Temazepam [Restoril] 30 mg PO BEDTIME 04/21/20 21:43 Sodium Chloride 0.9% [Saline Flush] 10 ml FLUSH ASDIRECTED PRN 04/22/20 01:16 Communication Order [RC] ROUTINE 04/22/20 07:30 Pantoprazole [ProTONIX] 40 mg PO BIDAC 04/22/20 08:00 Communication Order [RC] DAILY 04/22/20 08:54 Accu Check [Blood Glucose Check, Bedside] [RC] WITHMEALSANDBED 04/22/20 09:00 Beta-Carotene (Vitamin A) [A-Randall-25] 100,000 units PO DAILY Ergocalciferol (Vitamin D2) [Vitamin D2] 1.25 mg PO DAILY Sertraline [Zoloft] 100 mg PO DAILY 04/22/20 09:13 Consult to Physical Therapy [PT Evaluation and Treatment] [CONS] Routine Code Status [Resuscitation Status] Routine 04/22/20 09:14 Consult to Occupational Therapy [OT Evaluation and Treatment] [CONS] Routine 04/22/20 09:15 Lidocaine 4% [Aspercreme 4%] 1 each TOP DAILY 04/22/20 17:00 MVI, Adult with Vitamin K [Infuvite Adult] 10 ml AA 5%/Calcium/D15W/Lytes [Clinimix E 08/02] 1,000 ml IV TuTh@1700 04/24/20 09:00 Beta-Carotene (Vitamin A) [A-Randall-25] 25,000 units PO DAILY Cholecalciferol (Vitamin D3) [Vitamin D3] 25 mcg PO DAILY 04/25/20 06:00 CBC WITH AUTO DIFF [HEME] Routine COMPREHENSIVE METABOLIC PN,CMP [CHEM] Routine MAGNESIUM [CHEM] Routine - Plan Plan:: Patient was transferred from [facility] for 1 week of TPN to improve malnutrition secondary to nausea, vomiting, melena due to multiple problems over the last several months stemming from multiple gastric bypass surgeries and endoscopes. Patient will be given TPN, home medications, and monitored while here. Expect transfer back to [place] for surgery. Patient is noted to have swelling of the left knee with bruising over the left knee. We will attempt pain control with lidocaine patch. 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 We will avoid NSAIDs secondary to expected gastric surgery.
[2020-04-22] MEDS: Lidocaine 4% 1 each Patch TOP SCH (09:30)
[2020-04-22] MEDS: BETA CAROTENE 25000 UNIT PO SCH (09:32)
[2020-04-22] MEDS: MVI, Adult with Vitamin K 10 ML in AA 5%/Calcium/D15W/Lytes 1,000 ML IV SCH ×2 (18:07)
[2020-04-22] MEDS: Temazepam 15 MG Cap PO SCH (21:01)
[2020-04-23] MEDS: Acetaminophen 325 MG Tab PO PRN ×2 (00:05→09:32)
[2020-04-23] MEDS: Pantoprazole 40 MG Tab.CR PO SCH ×2 (06:57→17:44)
[2020-04-23] MEDS: Sucralfate 1 GM Tab PO SCH ×4 (06:57→20:59)
[2020-04-23] MEDS: BETA CAROTENE 25000 UNIT PO SCH (09:33)
[2020-04-23] MEDS: Ergocalciferol (Vitamin D2) 1.25 MG Cap PO SCH (09:34)
[2020-04-23] MEDS: Lidocaine 4% 1 each Patch TOP SCH (09:34)
[2020-04-23] MEDS: Sertraline 100 MG Tab PO SCH (09:34)
[2020-04-23] MEDS: Fat Emulsion 250 ML IV SCH ×2 (15:06→21:00)
[2020-04-23] MEDS: AA 5%/Calcium/D15W/Lytes 1,000 ML IV SCH (17:44)
[2020-04-23] MEDS: Temazepam 15 MG Cap PO SCH (20:59)
[2020-04-24] MEDS: Sodium Chloride 0.9% 10 ML Syringe FLUSH PRN (03:30)
[2020-04-24] MEDS: Pantoprazole 40 MG Tab.CR PO SCH ×2 (06:33→17:12)
[2020-04-24] MEDS: Sucralfate 1 GM Tab PO SCH ×4 (06:33→21:03)
[2020-04-24] MEDS: Acetaminophen 325 MG Tab PO PRN (07:34)
[2020-04-24] MEDS: Cholecalciferol (Vitamin D3) 25 MCG Tab PO SCH (08:00)
[2020-04-24] MEDS: Sertraline 100 MG Tab PO SCH (08:00)
[2020-04-24] MEDS: BETA CAROTENE 25000 UNIT PO SCH (08:00)
[2020-04-24] MEDS: Lidocaine 4% 1 each Patch TOP SCH (08:00)
[2020-04-24] MEDS: MVI, Adult with Vitamin K 10 ML in AA 5%/Calcium/D15W/Lytes 1,000 ML IV SCH ×2 (17:13)
[2020-04-24] MEDS: Temazepam 15 MG Cap PO SCH (21:07)
[2020-04-24] MEDS: Fat Emulsion 250 ML IV SCH (21:50)
[2020-04-25] MEDS: Sucralfate 1 GM Tab PO SCH ×4 (06:33→21:22)
[2020-04-25] MEDS: Pantoprazole 40 MG Tab.CR PO SCH ×2 (06:33→17:31)
[2020-04-25] MEDS: Sertraline 100 MG Tab PO SCH (09:28)
[2020-04-25] MEDS: Cholecalciferol (Vitamin D3) 25 MCG Tab PO SCH (09:28)
[2020-04-25] MEDS: BETA CAROTENE 25000 UNIT PO SCH (09:28)
[2020-04-25] MEDS: Lidocaine 4% 1 each Patch TOP SCH (09:29)
[2020-04-25] MEDS: AA 5%/Calcium/D15W/Lytes 1,000 ML IV SCH (17:28)
[2020-04-25] MEDS: Acetaminophen 325 MG Tab PO PRN (20:33)
[2020-04-25] MEDS: Fat Emulsion 250 ML IV SCH (20:36)
[2020-04-25] MEDS: Temazepam 15 MG Cap PO SCH (21:27)
[2020-04-26] MEDS: Pantoprazole 40 MG Tab.CR PO SCH ×2 (06:36→17:23)
[2020-04-26] MEDS: Sucralfate 1 GM Tab PO SCH ×4 (07:55→20:41)
[2020-04-26] MEDS: Sertraline 100 MG Tab PO SCH (08:01)
[2020-04-26] MEDS: BETA CAROTENE 25000 UNIT PO SCH (08:01)
[2020-04-26] MEDS: Cholecalciferol (Vitamin D3) 25 MCG Tab PO SCH (08:01)
[2020-04-26] MEDS: Lidocaine 4% 1 each Patch TOP SCH (08:02)
--- NOTE | 2020-04-26 11:44 | PN ---
DATE SEEN: 04/26/2020 HISTORY: Ms. Peres is a 74-year-old who was admitted to [facility] bed here on 04/21/2020 for IV hyperalimentation. She has had multiple surgeries starting with gastric bypass revisions and ultimately a gastrojejunostomy. She was found to have a large ulcer at the anastomosis site needing surgical repair; however, before this was undertaken, she was sent here from the [facility] for hyperalimentation. The patient has been getting approximately 1200 calories of Aminosyn and lipids per day. She states she is having diarrhea stools. She is also on oral Protonix, vitamins, Carafate, and temazepam at bedtime. She does have a full liquid diet, but she states it all goes straight through. PHYSICAL EXAMINATION: VITAL SIGNS: Blood pressure 105/55, pulse 59 regular, respirations 18, O2 sat 97% on room air, temperature 98.1, and weight 155 pounds 9 ounces. SKIN: Shows no sign of rash or trauma. She has a PICC line in the right antecubital area. HEENT: Mouth is dry. LUNGS: Clear. HEART: Regular. ABDOMEN: Normal bowel sounds. Soft and nontender. EXTREMITIES: Show no edema at the ankles. ASSESSMENT: 1. Malnutrition secondary to chronic gastrointestinal ulcer. 2. Large anastomotic ulcer, gastrojejunostomy. 3. History of chronic obesity. 4. Anemia, hemoglobin 9.6. 5. Chronic insomnia. PLAN: She will complete her course of IV nutritional therapy tomorrow evening and leave for the [facility], Tuesday morning. Follow up here on a p.r.n. basis following completion of her care at [place]. /[id number] ALBERT/ABA
[2020-04-26] MEDS: AA 5%/Calcium/D15W/Lytes 1,000 ML IV SCH (17:23)
[2020-04-26] MEDS: Fat Emulsion 250 ML IV SCH (20:33)
[2020-04-26] MEDS: Temazepam 15 MG Cap PO SCH (21:52)
[2020-04-27] MEDS: Sucralfate 1 GM Tab PO SCH ×5 (06:53→20:47)
[2020-04-27] MEDS: Pantoprazole 40 MG Tab.CR PO SCH ×2 (06:53→16:56)
[2020-04-27] MEDS: Lidocaine 4% 1 each Patch TOP SCH (08:09)
[2020-04-27] MEDS: BETA CAROTENE 25000 UNIT PO SCH (08:09)
[2020-04-27] MEDS: Cholecalciferol (Vitamin D3) 25 MCG Tab PO SCH (08:09)
[2020-04-27] MEDS: Sertraline 100 MG Tab PO SCH (08:10)
--- NOTE | 2020-04-27 10:48 | DISCH ---
DISCHARGE DATE: 04/28/2020 PRIMARY DISCHARGE DIAGNOSIS: Malnutrition secondary to gastrointestinal ulcer and resultant malabsorption. OTHER DIAGNOSES: Large anastomotic ulcer at the gastrojejunal junction. OPERATIONS: None. COMPLICATIONS: None. SUMMARY: Ms. Peres is a 74-year-old woman who has a complex gastrointestinal surgical history that started with a gastric bypass several years ago. She had subsequent revisions and ultimately anastomosis that has developed a large anastomotic ulcer. This is scheduled for surgical correction at the [facility]. She has been in swing bed here for 1 week, receiving intravenous nutrition with a combination of Aminotein, vitamins, fat emulsion, etc. She has received approximately 1200 calories per day. She has been allowed to have oral intake, which has passed through as diarrhea almost immediately after eating. The patient has tolerated her IV nutrition satisfactorily. Glucose has remained stable. Hemoglobin 9.6, BUN 20, creatinine 0.8. Electrolytes normal. AST 100, ALT 92, and albumin 3.0. She is discharged in stable condition. She will be transferred to [facility] [place], [place] by [facility] transfer cab the a.m. of 04/28/2020 as previously planned. MEDICATIONS ON DISCHARGE: 1. Sucralfate 1 g liquid q.i.d. a.c. and bedtime. 2. Saline flush to her right PICC line. 3. Multiple vitamin 1 oral daily. 4. Lidoderm patch daily. 5. Vitamin D2 50,000 units daily. 6. Temazepam 30 mg at bedtime. 7. Sertraline 100 mg daily. 8. Pantoprazole 40 mg daily. 9. Vitamin D3 25 mcg daily. 10.Beta-carotene 20,000 units daily. She will have follow up locally as instructed when she completes her surgical treatment in [facility]. /[id number] Tangela PRICE/ABA
[2020-04-27] MEDS: AA 5%/Calcium/D15W/Lytes 1,000 ML IV SCH (16:57)
[2020-04-27] MEDS: Temazepam 15 MG Cap PO SCH (21:13)
[2020-04-28] MEDS ORDERED: Heparin Sodium 10 Units/ML 5 ML Syringe FLUSH PRN (07:06)
[2020-04-28] MEDS: Sodium Chloride 0.9% 10 ML Syringe FLUSH PRN ×2 (07:15→07:40)
[2020-04-28] MEDS: Pantoprazole 40 MG Tab.CR PO SCH (07:35)
[2020-04-28] MEDS: Sucralfate 1 GM Tab PO SCH (07:35)
[2020-04-28 08:12] VITALS: BP 115/70; PULSE 80
[2020-04-28] MEDS: BETA CAROTENE 25000 UNIT PO SCH (08:25)
[2020-04-28] MEDS: Lidocaine 4% 1 each Patch TOP SCH (08:25)
[2020-04-28] MEDS: Sertraline 100 MG Tab PO SCH (08:26)
[2020-04-28] MEDS: Cholecalciferol (Vitamin D3) 25 MCG Tab PO SCH (08:26)
== END 2020-04-28 09:45 | DRG 641 ==
LOC: FB.MS 15:30 → UNDOADMIN 15:37
PROVIDERS: ADMIT Student in an Organized Health Care Education/Training Program; ATTEND Family Medicine
DX: E46 Unspecified protein-calorie malnutrition (principal); K95.89 Other complications of other bariatric procedure; K91.2 Postsurgical malabsorption, not elsewhere classified; K28.9 Gastrojejunal ulcer, unspecified as acute or chronic, without hemorrhage or perforation; H91.90 Unspecified hearing loss, unspecified ear; H04.123 Dry eye syndrome of bilateral lacrimal glands; I11.0 Hypertensive heart disease with heart failure; I50.9 Heart failure, unspecified; I35.0 Nonrheumatic aortic (valve) stenosis; K21.9 Gastro-esophageal reflux disease without esophagitis; M19.90 Unspecified osteoarthritis, unspecified site; M81.0 Age-related osteoporosis without current pathological fracture; E11.42 Type 2 diabetes mellitus with diabetic polyneuropathy; F41.9 Anxiety disorder, unspecified; F32.9 Major depressive disorder, single episode, unspecified; E66.9 Obesity, unspecified; Z96.649 Presence of unspecified artificial hip joint; Z96.611 Presence of right artificial shoulder joint; G47.00 Insomnia, unspecified; Z96.612 Presence of left artificial shoulder joint; D64.9 Anemia, unspecified; Z98.41 Cataract extraction status, right eye; Y83.8 Other surgical procedures as the cause of abnormal reaction of the patient, or of later complication, without mention of misadventure at the time of the procedure; Z98.42 Cataract extraction status, left eye; Z90.49 Acquired absence of other specified parts of digestive tract; Z98.890 Other specified postprocedural states; Z90.710 Acquired absence of both cervix and uterus; Z79.899 Other long term (current) drug therapy; Z88.1 Allergy status to other antibiotic agents; Z88.6 Allergy status to analgesic agent; Z88.8 Allergy status to other drugs, medicaments and biological substances; Z88.7 Allergy status to serum and vaccine; Z88.2 Allergy status to sulfonamides; Z97.4 Presence of external hearing-aid; Z87.01 Personal history of pneumonia (recurrent); Z98.84 Bariatric surgery status
CPT/HCPCS: 36415; 80053; 82962; 83735; 85025; 97110-GO; 97110-GP; 97162-GP; 97165-GO; 97530-GO; 97530-GP; 99304; 99308; 99315; A9270-GY; J1642; J3490

== ENCOUNTER 2020-05-12 09:34 | Inpatient (IN) | payer MEDICARE ==
--- NOTE | 2020-05-12 15:54 | PCM.HP.2 ---
H&P History of Present Illness - General Date of Service: 05/12/20 Admit Problem/Dx: Admission Diagnosis/Problem Admission Diagnosis/Problem Weakness Source of Information: Patient, Old Records, Provider - History of Present Illness Initial Comments - Free Text/Narative: Genevieve is being admitted for swing bed placement for TPN & rehab services, had acute care stay at [facility], 04/28/20-05/12/20. She underwent laparoscopic esophagojejunostomy, excision ulcerated gastric pouch converted to open, also had splenectomy on 04/30/20. She was advanced to pureed diet until she follows up by video visit with Dr Lee's team and nutrition in 3 weeks. She is to have TPN for 1 week. She received initial doses of HIB, meningococcal, pneumococcal vaccines on 05/11 at [place] for s/p splenectomy. She will need repeat Menveo & MCV4 at least 8 weeks after initial dose then Menveo every 5 years. She had hypomagnesemia on admission to [facility], she is to recheck her Vitamin D and A levels in 2 months with her PCP. Follow up with Cardiology in 2 weeks for transthoracic echocardiogram, this can be done locally. She had a small hard bowel movement prior to leaving [facility] today, had MiraLAX daily as needed but did not receive any doses the last week. Her last BM prior to today's was 04/29. - Related Data Allergies/Adverse Reactions: Allergies Allergy/AdvReac Type Severity Reaction Status Date / Time ciprofloxacin [From Cipro] Allergy Itching Verified 04/09/20 06:34 erythromycin base Allergy Hives Verified 04/09/20 06:34 [Erythromycin Base] ibuprofen Allergy Other Verified 04/09/20 06:34 Influenza Virus Vaccines Allergy Nausea and Verified 04/09/20 06:34 Vomiting ketorolac [From Toradol] Allergy Nausea and Verified 04/09/20 06:34 Vomiting NSAIDS (Non-Steroidal Allergy Other Verified 04/09/20 06:34 Anti-Inflamma Penicillins Allergy Hives Verified 04/09/20 06:34 Sulfa (Sulfonamide Allergy Hives Verified 04/09/20 06:34 Antibiotics) Tetracyclines Allergy Hives Verified 04/09/20 06:34 Home Medications: Home Meds Sertraline [Zoloft] 100 mg PO DAILY 02/03/20 [History] Beta-Carotene [Beta Carotene] 25,000 unit PO DAILY 04/21/20 [History] Cholecalciferol (Vitamin D3) [Vitamin D3] 50 mcg PO DAILY 04/21/20 [History] Pantoprazole Sodium [Protonix] 40 mg PO ACBREAKFAST 04/21/20 [History] Temazepam 30 mg PO BEDTIME 04/21/20 [History] Acetaminophen [Tylenol] 650 mg PO Q6H PRN 05/12/20 [History] Calcium Carbonate [Calcium] 1,000 mg PO BIDMEALS 05/12/20 [History] Cyanocobalamin (Vitamin B-12) [Cyanocobalamin Injection] 1,000 mcg SUBCUT Q30D 05/12/20 [History] Multivitamin [Flintstones] 1 tab CHEW BID@05/12/20 [History] oxyCODONE HCl [Oxycodone HCl] 5 mg PO Q4H PRN 05/12/20 [History] oxyCODONE HCl [Oxycodone HCl] 10 mg PO Q4H PRN 05/12/20 [History] Past Medical History HEENT History: Reports: Cataract, Hard of Hearing, Other (See Below) Other HEENT History: Dry eyes. Left cochlear implant. Wears hearing aid. Cardiovascular History: Reports: Heart Failure, Heart Murmur, Hypertension, Other (See Below) Other Cardiovascular History: Aortic stenosis. Ascending aorta dilation. Diastolic dysfunction. Heartbeat abnormality. Peripheral vascular disease. Respiratory History: Reports: Pneumonia, Recurrent, Other (See Below) Other Respiratory History: Pulmonary nodule. Gastrointestinal History: Reports: GERD, Other (See Below) Other Gastrointestinal History: History of abdominal fistula. hx of bleeding ulcer Genitourinary History: Reports: Other (See Below) Other Genitourinary History: Cyst on right kidney. FUNDING SPECIALIST History: Reports: Other OB/BYN History: Musculoskeletal History: Reports: Arthritis, Fracture, Osteoporosis Other Musculoskeletal History: Lumbago. History of fracture right hip, left femur, left wrist. Neurological History: Reports: Neuropathy, Peripheral Other Neuro History: Bilateral peripheral neuropathy. Psychiatric History: Reports: Anxiety, Depression Other Psychiatric History: Insomnia. Endocrine/Metabolic History: Reports: Obesity/BMI 30+, Osteoporosis Other Endocrine/Metabolic History: Impaired glucose tolerance. Hematologic History: Reports: Anemia, Blood Transfusion(s) Dermatologic History: Reports: Cellulitis - Infectious Disease History Infectious Disease History: Reports: Measles, Mumps Other Infectious Disease History: Staph infection right ear, unsure if MRSA. - Past Surgical History Head Surgeries/Procedures: Reports: None HEENT Surgical History: Reports: Cataract Surgery, Oral Surgery Other HEENT Surgeries/Procedures: bilat cataract surgery, Cardiovascular Surgical History: Reports: None GI Surgical History: Reports: Appendectomy, Bariatric Procedure, Cholecystectomy, Colonoscopy, EGD, Other (See Below) Other GI Surgeries/Procedures: abd fistula repaired, 09/04/2019. splenectomy . Gastric bypass revision Female Surgical History: Reports: Hysterectomy, Salpingo-Oophorectomy, Tubal Ligation Endocrine Surgical History: Reports: None Neurological Surgical History: Reports: None Musculoskeletal Surgical History: Reports: Carpal Tunnel, Hip Replacement, ORIF, Shoulder Surgery Other Musculoskeletal Surgeries/Procedures:: bilat SHOULDER ARTHROPLASTY, ORIF to L wrist, pins removed, Social & Family History - Family History Family Medical History: No Pertinent Family History HEENT: Reports: Glaucoma, Macular Degeneration Cardiac: Reports: Hypertension Endocrine/Metabolic: Reports: Diabetes Mellitus, Type 3c Oncologic: Reports: Brain, Colon, Lung Other Oncologic Family History: Throat. Liver. Stomach. - Tobacco Use Tobacco Use Status *Q: Never Tobacco User Second Hand Smoke Exposure: No - Caffeine Use Caffeine Use: Reports: None Other Caffeine Use: states that she takes powerade. - Recreational Drug Use Recreational Drug Use: No - Living Situation & Occupation Living situation: Reports: Alone H&P Review of Systems - Review of Systems: Review Of Systems: See Below General: Reports: Weakness, Decreased Appetite, Weight Loss. Denies: Fever, Chills HEENT: Reports: No Symptoms Pulmonary: Reports: No Symptoms, Pleuritic Chest Pain Cardiovascular: Reports: Dyspnea on Exertion, Edema Gastrointestinal: Reports: Abdominal Pain, Constipation, Decreased Appetite. Denies: Black Stool, Bloody Stool, Diarrhea, Difficulty Swallowing, Nausea Genitourinary: Reports: No Symptoms Musculoskeletal: Reports: No Symptoms Skin: Reports: Pallor, Wound Psychiatric: Reports: No Symptoms Neurological: Reports: No Symptoms Hematologic/Lymphatic: Reports: Anemia Immunologic: Reports: No Symptoms Exam - Exam Exam: See Below - Vital Signs Vital Signs: Last Vital Signs Temp 99.8 F 05/12/20 14:16 Pulse 108 H 05/12/20 14:16 Resp 16 02/22/21 14:16 BP 118/69 05/12/20 14:16 Pulse Ox 92 L 05/12/20 14:16 Weight: 158 lb 11.2 oz - Exam General: Alert, Oriented, Cooperative. No: Mild Distress HEENT: PERRLA, Conjunctiva Clear, EOMI, Hearing Intact (cochlear implant), Mucosa Moist & [place], Posterior Pharynx Clear, Other (white plaque on tongue with erythema) Neck: Supple, Trachea Midline. No: Lymphadenopathy Lungs: Clear to Auscultation, Normal Respiratory Effort Cardiovascular: Regular Rate, Regular Rhythm, Systolic Murmur GI/Abdominal Exam: Normal Bowel Sounds, Soft, No Distention, Guarding, Tender (diffuse worse along ventral incision, steri-strips in place. No discharge.) (Female) Exam: Deferred Rectal (Female) Exam: Deferred Extremities: No Pedal Edema, Normal Capillary Refill, Pallor Peripheral Pulses: 2+: Radial (L), Radial (R) Skin: Warm, Dry, Incision (C/D/I) Psychiatric: Normal Affect, Normal Mood Sepsis Event Note - Focused Exam Vital Signs: Vital Signs Temp Pulse Resp BP Pulse Ox 05/12/20 14:16 99.8 F 108 H 16 118/69 92 L *Q Meaningful Use (ADM) - VTE *Q VTE Pharmacological Contraindications *Q: Not Candidate LT Anticoag - VTE Risk Assess *Q Each Risk Factor Represents 1 Point: Obesity ( BMI > 25 kg/m2) Total Score 1 Point Risk Factors: 1 Each Risk Factor Represents 2 Points: Age 60 - 74 Years, Major surgery greater than 45 minutes Total Score 2 Point Risk Factors: 4 Each Risk Factor Represents 3 Points: None Total Score 3 Point Risk Factors: 0 Each Risk Factor Represents 5 Points: None Total Score 5 Point Risk Factors: 0 Venous Thromboembolism Risk Factor Score *Q: 5 - Problem List (1) S/P gastric surgery SNOMED Code(s): 185200414, 338553002 ICD Code: Z98.890 - OTHER SPECIFIED POSTPROCEDURAL STATES Status: Acute Current Visit: Yes Onset Date: ~04/30/20 Problem Details: Laparoscopic esophagojejunostomy, converted to open, with splenectomy, excision of ulcerated gastric pouch. (2) S/P splenectomy SNOMED Code(s): 476657870, 347642752, 019784547 ICD Code: Z90.81 - ACQUIRED ABSENCE OF SPLEEN Status: Acute Current Visit: Yes Onset Date: ~04/30/20 (3) Protein calorie malnutrition SNOMED Code(s): 896277395 ICD Code: E46 - UNSPECIFIED PROTEIN-CALORIE MALNUTRITION Status: Acute Current Visit: Yes Problem Details: TPN continue for 1 more week. Has been on for 2 weeks already. Qualifiers: Protein-calorie malnutrition severity: severe Qualified Code(s): E43 - Unspecified severe protein-calorie malnutrition (4) S/P bariatric surgery SNOMED Code(s): 893561999, 837644614, 911407505 ICD Code: Z98.84 - BARIATRIC SURGERY STATUS Status: Acute Current Visit: Yes (5) Failure to thrive in adult SNOMED Code(s): 922749398 ICD Code: R62.7 - ADULT FAILURE TO THRIVE Status: Acute Current Visit: Yes (6) HTN, Benign essential hypertension SNOMED Code(s): 4256671 ICD Code: I10 - ESSENTIAL (PRIMARY) HYPERTENSION Status: Chronic Current Visit: No Problem List Initiated/Reviewed/Updated: Yes Orders Last 24hrs: Active Orders 24 hr Category Date Time Status Patient Status [ADT] Routine ADT 05/12/20 15:07 Active Height and Weight [RC] WEEKLY Care 05/12/20 15:07 Active Oxygen Therapy [RC] PRN Care 05/12/20 15:07 Active Up With Assistance [RC] ASDIRECTED Care 05/12/20 15:07 Active Up to Chair [RC] ASDIRECTED Care 05/12/20 15:07 Active VTE/DVT Education [RC] Per Unit Routine Care 05/12/20 15:07 Active Vital Signs [RC] PER UNIT ROUTINE Care 05/12/20 15:07 Active OT Evaluation and Treatment [CONS] Routine Cons 05/12/20 15:07 Active PT Evaluation and Treatment [CONS] Routine Cons 05/12/20 15:07 Active Pureed Diet [DIET] Diet 05/12/20 Dinner Active AA 5%/Calcium/D15W/Lytes [Clinimix E 08/02] 1,000 ml Med 05/12/20 15:30 Active IV Q24H Acetaminophen [Tylenol] Med 05/12/20 15:10 Active 650 mg PO Q6H PRN Beta-Carotene (Vitamin A) [A-Randall-25] Med 05/13/20 09:00 Active 25,000 units PO DAILY Calcium Carbonate [Tums] Med 05/12/20 18:00 Active 1,000 mg PO BIDMEALS Cholecalciferol (Vitamin D3) [Vitamin D3] Med 05/13/20 09:00 Active 50 mcg PO DAILY Cyanocobalamin (Vitamin B12) [Vitamin B12] Med 06/08/20 09:00 Active 1,000 mcg SUBCUT Q30D Fat Emulsion [Intralipid 20%] 250 ml Med 05/12/20 21:00 Active IV BEDTIME Multivitamins [Childrens Chewable Vitamin] Med 05/12/20 21:00 Active 1 tab CHEW BID@ Pantoprazole [ProTONIX] Med 05/13/20 06:00 Active 40 mg PO DAILY@0600 Sertraline [Zoloft] Med 05/13/20 09:00 Active 100 mg PO DAILY oxyCODONE Med 05/12/20 15:16 Active 10 mg PO Q4H PRN oxyCODONE Med 05/12/20 15:15 Active 5 mg PO Q4H PRN polyethylene glycoL 3350 [MiraLAX] Med 05/12/20 16:00 Active 17 gm PO MoWeFr@0900 Antiembolic Hose [OM.PC] Per Unit Routine Oth 05/12/20 15:08 Ordered Resuscitation Status Routine Resus Stat 05/12/20 15:07 Ordered Medication Orders Acetaminophen (Tylenol) 650 mg PO Q6H PRN PRN Reason: Pain Beta Carotene (A-Randall-25) 25,000 units PO DAILY ED Stop: 07/10/20 09:01 Calcium Carbonate/Glycine (Tums) 1,000 mg PO BIDMEALS ED Cholecalciferol (Vitamin D3) 50 mcg PO DAILY DE Cyanocobalamin (Vitamin B12) 1,000 mcg SUBCUT Q30D ED Amino Ac/Electrol/Dextrose/Calcium (Clinimix E 08/02) 1,000 mls @ 41.667 mls/hr IV Q24H ED Fat Emulsion Intravenous (Intralipid 20%) 250 mls @ 20.833 mls/hr IV BEDTIME ED Multivitamins/Minerals/Vitamin C (Childrens Chewable Vitamin) 1 tab CHEW BID@ ED Oxycodone HCl (Oxycodone) 5 mg PO Q4H PRN PRN Reason: pain 4-6/10 Oxycodone HCl (Oxycodone) 10 mg PO Q4H PRN PRN Reason: pain 7-10/10 Pantoprazole Sodium (Protonix) 40 mg PO DAILY@0600 [facility] Polyethylene Glycol (Miralax) 17 gm PO MoWeFr@0900 [facility] Sertraline HCl (Zoloft) 100 mg PO DAILY [facility] Assessment/Plan Comment:: 1. Admit to swing bed for TPN replacement and PT/OT for weakness, failure to thrive. 2. Protein-calorie malnutrition 2/2 recent open esophagojejunostomy, excision of ulcerated gastric pouch: TPN per pharmacy, regiment from [facility] will be continued for 1 week. Pureed diet for 3 weeks until follow up virtual visit with Dr Sierra's team & nutrition at [facility]. Labs per TPN protocol. 3. Weakness: PT/OT evaluate & treat. 4. S/p splenectomy: Menveo & MCV4 2nd doses due in 8 weeks. 5. Pain: Tylenol & Oxycodone continue from [facility]. 6. Constipation: MiraLAX daily, adjust as needed. 7. DVT prophylaxis: Ambulation, TEDS. 8. CODE STATUS: DNR/DNI. Advance directive in papers from [facility], also confirmed by patient. - Mortality Measure Prognosis:: Poor
[2020-05-12] MEDS: oxyCODONE 5 MG Tab PO PRN ×2 (15:56→20:21)
[2020-05-12] MEDS: Polyethylene Glycol 3350 Powder 17 GM Packet PO SCH (15:57)
[2020-05-12] MEDS: AA 5%/Calcium/D15W/Lytes 1,000 ML IV SCH (15:57)
[2020-05-12] MEDS ORDERED: Melatonin 3 MG Tab PO PRN (16:21)
[2020-05-12] MEDS: Clotrimazole 10 MG Troche SCH ×2 (18:23→20:21)
[2020-05-12] MEDS: Calcium Carbonate 500 MG Tab.Chew PO SCH (18:23)
[2020-05-12] MEDS: Multivitamin, Childrens Tab.Chew CHEW SCH (20:21)
[2020-05-12] MEDS: Fat Emulsion 250 ML IV SCH (20:24)
[2020-05-13] MEDS: Pantoprazole 40 MG Tab.CR PO SCH (05:45)
[2020-05-13] MEDS: oxyCODONE 5 MG Tab PO PRN ×4 (05:49→20:03)
[2020-05-13] MEDS: Clotrimazole 10 MG Troche SCH ×5 (08:00→20:03)
[2020-05-13] MEDS: Calcium Carbonate 500 MG Tab.Chew PO SCH ×2 (09:41→17:25)
[2020-05-13] MEDS: Sertraline 100 MG Tab PO SCH (09:43)
[2020-05-13] MEDS: Cholecalciferol (Vitamin D3) 25 MCG Tab PO SCH (09:43)
[2020-05-13] MEDS: BETA CAROTENE 25000 UNIT PO SCH (09:43)
[2020-05-13] MEDS: Multivitamin, Childrens Tab.Chew CHEW SCH ×2 (12:07→20:52)
[2020-05-13] MEDS: AA 5%/Calcium/D15W/Lytes 1,000 ML IV SCH (15:31)
[2020-05-13] MEDS: Fat Emulsion 250 ML IV SCH (20:07)
[2020-05-14] MEDS: oxyCODONE 5 MG Tab PO PRN ×5 (02:16→20:00)
[2020-05-14] MEDS: Pantoprazole 40 MG Tab.CR PO SCH (06:21)
[2020-05-14] MEDS: Clotrimazole 10 MG Troche SCH ×5 (08:33→20:01)
[2020-05-14] MEDS: Polyethylene Glycol 3350 Powder 17 GM Packet PO SCH (08:34)
[2020-05-14] MEDS: BETA CAROTENE 25000 UNIT PO SCH (08:34)
[2020-05-14] MEDS: Calcium Carbonate 500 MG Tab.Chew PO SCH ×2 (08:34→18:25)
[2020-05-14] MEDS: Sertraline 100 MG Tab PO SCH (08:35)
[2020-05-14] MEDS: Cholecalciferol (Vitamin D3) 25 MCG Tab PO SCH (08:35)
[2020-05-14] MEDS: Multivitamin, Childrens Tab.Chew CHEW SCH ×2 (13:22→20:01)
[2020-05-14] MEDS: AA 5%/Calcium/D15W/Lytes 1,000 ML IV SCH (15:50)
[2020-05-14] MEDS: Fat Emulsion 250 ML IV SCH (20:01)
[2020-05-15] MEDS: oxyCODONE 5 MG Tab PO PRN ×4 (01:14→17:36)
[2020-05-15] MEDS: Pantoprazole 40 MG Tab.CR PO SCH (05:24)
[2020-05-15] MEDS: Clotrimazole 10 MG Troche SCH ×5 (08:57→20:51)
[2020-05-15] MEDS: BETA CAROTENE 25000 UNIT PO SCH (08:59)
[2020-05-15] MEDS: Sertraline 100 MG Tab PO SCH (08:59)
[2020-05-15] MEDS: Calcium Carbonate 500 MG Tab.Chew PO SCH ×2 (08:59→17:33)
[2020-05-15] MEDS: Cholecalciferol (Vitamin D3) 25 MCG Tab PO SCH (08:59)
[2020-05-15] MEDS: Multivitamin, Childrens Tab.Chew CHEW SCH ×2 (12:19→20:51)
[2020-05-15] MEDS ORDERED: Ondansetron 4 MG Tab.DIS PO PRN (12:27)
[2020-05-15] MEDS: AA 5%/Calcium/D15W/Lytes 1,000 ML IV SCH (16:03)
[2020-05-15] MEDS: Fat Emulsion 250 ML IV SCH (21:04)
[2020-05-16] MEDS: oxyCODONE 5 MG Tab PO PRN ×6 (00:12→23:20)
[2020-05-16] MEDS: Pantoprazole 40 MG Tab.CR PO SCH (05:04)
[2020-05-16] MEDS: Clotrimazole 10 MG Troche SCH ×5 (07:26→20:45)
[2020-05-16] MEDS: Sertraline 100 MG Tab PO SCH (08:19)
[2020-05-16] MEDS: BETA CAROTENE 25000 UNIT PO SCH (08:19)
[2020-05-16] MEDS: Calcium Carbonate 500 MG Tab.Chew PO SCH ×2 (08:19→17:47)
[2020-05-16] MEDS: Cholecalciferol (Vitamin D3) 25 MCG Tab PO SCH (08:19)
[2020-05-16] MEDS: Polyethylene Glycol 3350 Powder 17 GM Packet PO SCH (10:17)
[2020-05-16] MEDS: Multivitamin, Childrens Tab.Chew CHEW SCH ×2 (11:01→20:44)
--- NOTE | 2020-05-16 12:47 | PN ---
DATE SEEN: 05/16/2020 HISTORY: Maya Peres is a delightful, 74-year-old female seen today for review. Lives at [facility]. Major operative intervention; had esophagojejunostomy, excision of gastric pouch, and an incidental splenectomy at [place]. Has been in swing bed since . Plan is for 1 week of IV hyperalimentation. Review of laboratory studies from 05/15, glucose 121, mildly elevated AST and ALT and alkaline phosphatase, globulin 2.1. Doing well otherwise. Infusions, continue without difficulty. Reviewed her medications, all complementary. PHYSICAL EXAMINATION: VITAL SIGNS: 37.1, 97, 120/70, 16 is the respiration, 93% room air. GENERAL: Appears comfortable. In good spirits. NECK: Benign. Thyroid is small. CHEST: Clear in all lung petersen. No adventitious sounds. HEART: Revealed occasional ectopy, soft murmur. ABDOMEN: Surgical wound vertical around the umbilicus is healing well. A few Steri-Strips in place. ASSESSMENT: Postoperative care, complicated abdominal surgery. PLAN: TPN placed. Close observation. Medications and care. We will check an EKG just because of irregular heartbeat. /[id number] RYAN/ABA
[2020-05-16] MEDS: AA 5%/Calcium/D15W/Lytes 1,000 ML IV SCH (16:19)
[2020-05-16] MEDS: Fat Emulsion 250 ML IV SCH (20:53)
[2020-05-17] MEDS: oxyCODONE 5 MG Tab PO PRN ×5 (03:31→22:02)
[2020-05-17] MEDS: Pantoprazole 40 MG Tab.CR PO SCH (06:05)
[2020-05-17] MEDS: Clotrimazole 10 MG Troche SCH ×5 (06:54→20:52)
[2020-05-17] MEDS: Calcium Carbonate 500 MG Tab.Chew PO SCH ×2 (08:01→17:54)
[2020-05-17] MEDS: Cholecalciferol (Vitamin D3) 25 MCG Tab PO SCH (08:50)
[2020-05-17] MEDS: BETA CAROTENE 25000 UNIT PO SCH (08:51)
[2020-05-17] MEDS: Polyethylene Glycol 3350 Powder 17 GM Packet PO SCH (08:53)
[2020-05-17] MEDS: Sertraline 100 MG Tab PO SCH (08:53)
[2020-05-17] MEDS: Multivitamin, Childrens Tab.Chew CHEW SCH ×2 (11:02→20:52)
--- NOTE | 2020-05-17 11:29 | PN ---
DATE SEEN: 05/17/2020 SUBJECTIVE: Maya Peres is a delightful 74-year-old female seen today for review. He had a complex surgery, GI surgery and splenectomy in [place]. Was admitted to [facility] at 05/12. One week of hyperalimentation planned. Doing well. Just a lot of gas. She has had some infrequent stools. LABORATORY STUDIES: On admission 05/15, electrolytes all satisfactory. No hemoglobin was performed. PHYSICAL EXAMINATION: VITAL SIGNS: Stable. 37.3, 90, 120/70, 18, and 94%. GENERAL: Good spirits. NECK: Benign. Thyroid small. CHEST: On auscultation, clear in all lung petersen. HEART: No ectopy or murmur. ABDOMEN: Vertical incision, periumbilical, healing well. No dehiscence of the wound. ASSESSMENT: Complicated abdominal surgery. PLAN: Medications, care, and treatment appropriate. We will check a CBC today just for completeness. /[id number] RYAN/ABA
[2020-05-17] MEDS: AA 5%/Calcium/D15W/Lytes 1,000 ML IV SCH (16:20)
[2020-05-17] MEDS: Acetaminophen Soln 650 MG/20.3 ML UD Cup PO PRN (19:54)
[2020-05-17] MEDS: Fat Emulsion 250 ML IV SCH (20:57)
[2020-05-18] MEDS: oxyCODONE 5 MG Tab PO PRN ×5 (02:29→22:41)
[2020-05-18] MEDS: Pantoprazole 40 MG Tab.CR PO SCH (06:35)
[2020-05-18] MEDS: Clotrimazole 10 MG Troche SCH ×5 (06:36→20:29)
[2020-05-18] MEDS: Calcium Carbonate 500 MG Tab.Chew PO SCH ×2 (08:58→17:44)
[2020-05-18] MEDS: Cholecalciferol (Vitamin D3) 25 MCG Tab PO SCH (09:01)
[2020-05-18] MEDS: Sertraline 100 MG Tab PO SCH (09:02)
[2020-05-18] MEDS: BETA CAROTENE 25000 UNIT PO SCH (09:02)
[2020-05-18] MEDS: Acetaminophen Soln 650 MG/20.3 ML UD Cup PO PRN ×2 (09:18→20:28)
[2020-05-18] MEDS: Multivitamin, Childrens Tab.Chew CHEW SCH ×2 (11:35→20:29)
[2020-05-18] MEDS ORDERED: Enoxaparin 30 MG/0.3 ML Syringe SUBCUT SCH (12:00)
--- NOTE | 2020-05-18 13:35 | PN ---
DATE SEEN: 05/18/2020 SUBJECTIVE: Maya Peres is a delightful 74-year-old female seen today for followup. Had major abdominal surgery. Esophagojejunostomy, excision of gastric pouch, and splenectomy. Had a moderately elevated white count yesterday of 20,800; repeat today, 18. Hemoglobin 8.2 to 8.1, and fairly normal differential. There were a couple of metamyelocytes and nuclear red cells. Had little low-grade fever last evening of 38.1. Feeling well. LABORATORY STUDIES: Urinalysis was performed and revealed 0 to 5 red cells, 0 to 5 white cells, positive nitrites. Culture pending. OBJECTIVE: VITAL SIGNS: 36.8, 97, 105/67, 16, and 94% on room air. GENERAL: Appears comfortable. HEENT: Mouth and oropharynx clear. NECK: Benign. Thyroid small. CHEST: Clear in all lung petersen. HEART: No ectopy or murmur. ABDOMEN: Benign. Surgical scar healing well. ASSESSMENT: Postoperative care, complicated abdominal surgery, white count. PLAN: Urinalysis was fine. Chest x-ray to be performed. Medications to be adjusted accordingly. Blood cultures and chest x-ray to be performed. /[id number] RYAN/ABA
[2020-05-18] MEDS: AA 5%/Calcium/D15W/Lytes 1,000 ML IV SCH (17:40)
[2020-05-18] MEDS: Fat Emulsion 250 ML IV SCH (20:41)
[2020-05-19] MEDS: oxyCODONE 5 MG Tab PO PRN ×6 (02:44→23:11)
[2020-05-19] MEDS: Pantoprazole 40 MG Tab.CR PO SCH (06:38)
[2020-05-19] MEDS: Clotrimazole 10 MG Troche SCH ×2 (06:38→14:19)
[2020-05-19] MEDS: Calcium Carbonate 500 MG Tab.Chew PO SCH ×2 (08:46→18:39)
[2020-05-19] MEDS: BETA CAROTENE 25000 UNIT PO SCH (08:46)
[2020-05-19] MEDS: Cholecalciferol (Vitamin D3) 25 MCG Tab PO SCH (08:46)
[2020-05-19] MEDS: Sertraline 100 MG Tab PO SCH (08:47)
[2020-05-19] MEDS: Polyethylene Glycol 3350 Powder 17 GM Packet PO SCH (08:47)
[2020-05-19] MEDS ORDERED: ceFAZolin 1 GM in Sodium Chloride 0.9% 50 ML IV SCH (10:45)
--- NOTE | 2020-05-19 10:45 | CR ---
INDICATION: Fever. CHEST, TWO VIEWS: PA and lateral views of the chest were obtained 05/18/20 and compared with 01/02/14 and 07/01/13. Infiltration is now seen in both lung bases and the right mid lung field to a greater extent on the left than on the right with a pleural reaction on the left. These findings are new compared with previous examination. Most likely this appearance is secondary to pneumonia with pleuritis on the left and pneumonia on the right. The heart size was difficult to evaluate but appears to be somewhat enlarged allowing for the poor inspiration. The aorta is tortuous with calcification in the arch. Diminished bone density suggested which may be on the basis of osteoporosis and should be correlated clinically. Mild degenerative changes are noted in the mid to lower thoracic spine. Bilateral reversed shoulder arthroplasties are noted as a new finding additionally. IMPRESSION: 1. Bilateral pneumonia and left pleuritis. 2. ASHD with probable cardiomegaly. 3. Probable osteoporosis. 4. Bilateral reversed shoulder arthroplasties which appear to be grossly intact on the views obtained. 5. Demineralization most likely on the basis of osteoporosis - correlate clinically. MTDD
--- NOTE | 2020-05-19 11:13 | PCM.CONS ---
H&P History of Present Illness - General Date of Service: 05/19/20 Admit Problem/Dx: Admission Diagnosis/Problem Admission Diagnosis/Problem Weakness - History of Present Illness Initial Comments - Free Text/Narative: Asked to look at pt's wound. She is sp a removal of a gastric pouch with jejunoesophagectomy done at [place]. Apparently had a lower grade fever and was noted to to have some swelling and tenderness involving the upper wound. No erythema or drainage noted. abdominal Pain Score (Numeric/FACES): 2 - Related Data Allergies/Adverse Reactions: Allergies Allergy/AdvReac Type Severity Reaction Status Date / Time ciprofloxacin [From Cipro] Allergy Itching Verified 04/09/20 06:34 erythromycin base Allergy Hives Verified 04/09/20 06:34 [Erythromycin Base] ibuprofen Allergy Other Verified 04/09/20 06:34 Influenza Virus Vaccines Allergy Nausea and Verified 04/09/20 06:34 Vomiting ketorolac [From Toradol] Allergy Nausea and Verified 04/09/20 06:34 Vomiting NSAIDS (Non-Steroidal Allergy Other Verified 04/09/20 06:34 Anti-Inflamma Penicillins Allergy Hives Verified 04/09/20 06:34 Sulfa (Sulfonamide Allergy Hives Verified 04/09/20 06:34 Antibiotics) Tetracyclines Allergy Hives Verified 04/09/20 06:34 Home Medications: Home Meds Sertraline [Zoloft] 100 mg PO DAILY 02/03/20 [History] Beta-Carotene [Beta Carotene] 25,000 unit PO DAILY 04/21/20 [History] Cholecalciferol (Vitamin D3) [Vitamin D3] 50 mcg PO DAILY 04/21/20 [History] Pantoprazole Sodium [Protonix] 40 mg PO ACBREAKFAST 04/21/20 [History] Temazepam 30 mg PO BEDTIME 04/21/20 [History] Acetaminophen [Tylenol] 650 mg PO Q6H PRN 05/12/20 [History] Calcium Carbonate [Calcium] 1,000 mg PO BIDMEALS 05/12/20 [History] Cyanocobalamin (Vitamin B-12) [Cyanocobalamin Injection] 1,000 mcg SUBCUT Q30D 05/12/20 [History] Multivitamin [Flintstones] 1 tab CHEW BID@05/12/20 [History] oxyCODONE HCl [Oxycodone HCl] 5 mg PO Q4H PRN 05/12/20 [History] oxyCODONE HCl [Oxycodone HCl] 10 mg PO Q4H PRN 05/12/20 [History] Past Medical History HEENT History: Reports: Cataract, Hard of Hearing, Other (See Below) Other HEENT History: Dry eyes. Left cochlear implant. Wears hearing aid. Cardiovascular History: Reports: Heart Failure, Heart Murmur, Hypertension, Other (See Below) Other Cardiovascular History: Aortic stenosis. Ascending aorta dilation. Diastolic dysfunction. Heartbeat abnormality. Peripheral vascular disease. Respiratory History: Reports: Pneumonia, Recurrent, Other (See Below) Other Respiratory History: Pulmonary nodule. Gastrointestinal History: Reports: GERD, Other (See Below) Other Gastrointestinal History: History of abdominal fistula. hx of bleeding ulcer Genitourinary History: Reports: Other (See Below) Other Genitourinary History: Cyst on right kidney. 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 History of fracture right hip, left femur, left wrist. Neurological History: Reports: Neuropathy, Peripheral Other Neuro History: Bilateral peripheral neuropathy. Psychiatric History: Reports: Anxiety, Depression Other Psychiatric History: Insomnia. Endocrine/Metabolic History: Reports: Obesity/BMI 30+, Osteoporosis Other Endocrine/Metabolic History: Impaired glucose tolerance. Hematologic History: Reports: Anemia, Blood Transfusion(s) Dermatologic History: Reports: Cellulitis - Infectious Disease History Infectious Disease History: Reports: Measles, Mumps Other Infectious Disease History: Staph infection right ear, unsure if MRSA. - Past Surgical History Head Surgeries/Procedures: Reports: None HEENT Surgical History: Reports: Cataract Surgery, Oral Surgery Other HEENT Surgeries/Procedures: bilat cataract surgery, Cardiovascular Surgical History: Reports: None GI Surgical History: Reports: Appendectomy, Bariatric Procedure, Cholecystecto my, Colonoscopy, EGD, Other (See Below) Other GI Surgeries/Procedures: abd fistula repaired, 09/04/2019. splenectomy . Gastric bypass revision Female Surgical History: Reports: Hysterectomy, Salpingo-Oophorectomy, Tubal Ligation Endocrine Surgical History: Reports: None Neurological Surgical History: Reports: None Musculoskeletal Surgical History: Reports: Carpal Tunnel, Hip Replacement, ORIF, Shoulder Surgery Other Musculoskeletal Surgeries/Procedures:: bilat SHOULDER ARTHROPLASTY, ORIF to L wrist, pins removed, Social & Family History - Family History Family Medical History: No Pertinent Family History HEENT: Reports: Glaucoma, Macular Degeneration Cardiac: Reports: Hypertension Endocrine/Metabolic: Reports: Diabetes Mellitus, Type 3c Oncologic: Reports: Brain, Colon, Lung Other Oncologic Family History: Throat. Liver. Stomach. - Tobacco Use Tobacco Use Status *Q: Never Tobacco User Second Hand Smoke Exposure: No - Caffeine Use Caffeine Use: Reports: None Other Caffeine Use: states that she takes powerade. - Recreational Drug Use Recreational Drug Use: No - Living Situation & Occupation Living situation: Reports: Alone H&P Review of Systems - Review of Systems: Review Of Systems: See Below Gastrointestinal: Reports: Abdominal Pain Exam - Exam Exam: See Below - Vital Signs Vital Signs: Last Vital Signs Temp 98.5 F 05/19/20 06:53 Pulse 108 H 05/19/20 06:53 Resp 16 05/19/20 06:53 BP 117/58 L 05/19/20 06:53 Pulse Ox 90 L 05/19/20 06:53 Weight: 70.335 kg - Exam GI/Abdominal Exam: Other (well healed midline incision. at the apex of the wound is a warm slightly tender area measuring 3 x2 cm. ) - Patient Data Lab Results Last 24 hrs: Laboratory Results - last 24 hr 05/19/20 05/19/20 05/19/20 Range/Units 07:00 07:32 07:32 WBC 19.5 H (3.0-10.3) x10-3/uL RBC 3.13 L (3.60-5.20) x10(6)uL Hgb 8.9 L (11.4-15.5) g/dL Hct 29.0 L (34.2-48.2) % MCV 92.4 (76.7-100.5) fL MCH 28.3 (23.9-33.9) pg MCHC 30.7 L (31.9-34.8) g/dL RDW 19.0 H (12.3-16.5) % Plt Count 681 H (151-488) x10(3)uL MPV 8.3 (7.1-12.4) fL Add Manual Diff Yes Neutrophils % (Manual) 83 H (46-82) % Band Neutrophils % 3 (0-6) % Lymphocytes % (Manual) 8 L (13-37) % Monocytes % (Manual) 4 (4-12) % Eosinophils % (Manual) 1 (0-5) % Metamyelocytes % 1 H (0-0) % Nucleated RBCs 3 H (0-0) /100WBC Poikilocytosis Few PT 11.9 H (9.0-11.1) sec INR 1.11 (1.00-1.24) Sodium 135 (135-145) mmol/L Potassium 3.7 (3.5-5.3) mmol/L Chloride 100 (100-110) mmol/L Carbon Dioxide 27 (21-32) mmol/L BUN 15 (7-18) mg/dL Creatinine 0.7 (0.55-1.02) mg/dL Est Cr Clr Drug Dosing 50.65 mL/min Estimated GFR (MDRD) > 60 (>60) BUN/Creatinine Ratio 21.4 H (9-20) Glucose 119 H (80-116) mg/dL Calcium 8.7 (8.6-10.2) mg/dL Total Bilirubin 0.5 (0.1-1.3) mg/dL AST 66 H D (5-25) IU/L ALT 101 H D (12-36) U/L Alkaline Phosphatase 225 H (56-112) IU/L Total Protein 6.1 (6.0-8.0) g/dL Albumin 2.0 L (3.2-4.6) g/dL Globulin 4.1 g/dL Albumin/Globulin Ratio 0.5 Result Diagrams: 05/19/20 07:00 05/19/20 07:32 Xavier Results Last 24 hrs: Microbiology 05/17/20 16:47 Urine Culture - Final Urine, Voided Escherichia Coli Sepsis Event Note - Evaluation Sepsis Screening Result: No Definite Risk - Focused Exam Vital Signs: Vital Signs Temp Pulse Resp BP Pulse Ox 05/19/20 06:53 98.5 F 108 H 16 117/58 L 90 L *Q Meaningful Use (ADM) - VTE *Q VTE Pharmacological Contraindications *Q: Not Candidate LT Anticoag Consult PN Assessment/Plan Procedures: Procedures AIRWAY INHALATION TREATMENT (01/02/14) APPLICATION LOWER LEG SPLINT (06/24/16) ASSAY OF AMYLASE (12/23/19) ASSAY OF LIPASE (04/06/20) ASSAY OF MAGNESIUM (04/29/19) ASSAY OF NATRIURETIC PEPTIDE (12/23/13) ASSAY OF TROPONIN QUANT (04/06/20) ASSAY THYROID STIM HORMONE (04/06/20) C-REACTIVE PROTEIN (04/06/20) CHEST X-RAY 2VW FRONTAL&LATL (01/02/14) COMPLETE CBC W/AUTO DIFF WBC (04/06/20) COMPREHEN METABOLIC PANEL (04/06/20) CT ABD & PELV W/CONTRAST (12/23/19) CT ABD & PELVIS W/O CONTRAST (07/01/13) CT ABDOMEN W/DYE (01/23/19) CT ANGIOGRAPHY CHEST (01/17/14) CT HEAD/BRAIN W/O DYE (07/12/18) CT LUMBAR SPINE W/O DYE (01/17/14) CT THORAX DX C+ (01/30/18) CT THORAX DX C- (12/21/19) CULTURE AEROBIC IDENTIFY (07/01/13) DRAIN/INJ JOINT/BURSA W/O US (03/10/15) DXA BONE DENSITY AXIAL (08/10/16) EGD BIOPSY SINGLE/MULTIPLE (01/23/19) ELECTROCARDIOGRAM TRACING (01/02/14) EMERGENCY DEPT VISIT (04/06/20) EMERGENCY DEPT VISIT (04/05/20) EMERGENCY DEPT VISIT (12/23/19) EMERGENCY DEPT VISIT (10/28/19) EMERGENCY DEPT VISIT (10/16/19) EMERGENCY DEPT VISIT (05/25/19) EMERGENCY DEPT VISIT (05/11/19) EMERGENCY DEPT VISIT (05/11/19) EMERGENCY DEPT VISIT (04/29/19) EMERGENCY DEPT VISIT (03/20/19) EMERGENCY DEPT VISIT (03/17/19) EMERGENCY DEPT VISIT (02/18/19) EMERGENCY DEPT VISIT (02/03/19) EMERGENCY DEPT VISIT (10/30/18) EMERGENCY DEPT VISIT (08/02/18) EMERGENCY DEPT VISIT (02/28/18) EMERGENCY DEPT VISIT (11/20/16) EMERGENCY DEPT VISIT (09/05/16) EMERGENCY DEPT VISIT (07/07/15) EMERGENCY DEPT VISIT (07/07/15) EMERGENCY DEPT VISIT (10/22/14) EMERGENCY DEPT VISIT (10/22/14) EMERGENCY DEPT VISIT (09/21/14) EMERGENCY DEPT VISIT (05/02/14) EMERGENCY DEPT VISIT (05/02/14) EMERGENCY DEPT VISIT (01/02/14) EMERGENCY DEPT VISIT (12/23/13) EMERGENCY DEPT VISIT (12/23/13) EMERGENCY DEPT VISIT (09/09/13) EMERGENCY DEPT VISIT (09/09/13) EMERGENCY DEPT VISIT (07/13/13) EMERGENCY DEPT VISIT (07/01/13) EMERGENCY DEPT VISIT (07/01/13) EVALUATE PT USE OF INHALER (01/02/14) HYDRATE IV INFUSION ADD-ON (12/23/19) IMMUNOHISTO ANTB 1ST STAIN (01/23/19) MANUAL THERAPY 1/> REGIONS (03/20/14) METABOLIC PANEL TOTAL CA (07/17/19) MICROBE SUSCEPTIBLE XAVIER (10/28/18) OCCULT BLD FECES 1-3 TESTS (04/06/20) OCCULT BLOOD FECES (10/22/14) OCCULT BLOOD OTHER SOURCES (04/29/19) OFFICE O/P EST LOW 20-29 MIN (01/20/16) OFFICE O/P EST SF 10-19 MIN (03/10/15) OT EVAL HIGH COMPLEX 60 MIN (07/13/16) OT EVAL LOW COMPLEX 30 MIN (08/17/16) OT EVALUATION (01/19/16) PROTHROMBIN TIME (04/06/20) PT EVALUATION (11/18/14) RBC SED RATE NONAUTOMATED (06/05/17) ROUTINE VENIPUNCTURE (04/06/20) THER/PROPH/DIAG INJ IV PUSH (04/06/20) THER/PROPH/DIAG INJ SC/IM (03/20/19) THERAPEUTIC EXERCISES (10/26/16) THROMBOPLASTIN TIME PARTIAL (05/25/19) TISSUE EXAM BY PATHOLOGIST (01/23/19) TTE W/DOPPLER COMPLETE (02/16/19) TX/PRO/DX INJ NEW DRUG ADDON (04/06/20) TX/PRO/DX INJ SAME DRUG STOCK HANDLER (05/25/19) ULTRASOUND THERAPY (11/28/14) URINALYSIS AUTO W/SCOPE (10/30/18) URINE BACTERIA CULTURE (10/28/18) URINE CULTURE/COLONY COUNT (10/28/18) US URINE CAPACITY MEASURE (10/30/18) X-RAY EXAM ABDOMEN 2 VIEWS (07/17/19) X-RAY EXAM KNEE 4 OR MORE (03/10/15) X-RAY EXAM OF FOOT (11/20/16) X-RAY EXAM OF LOWER LEG (11/20/16) X-RAY EXAM OF SHOULDER (09/28/18) X-RAY EXAM OF WRIST (09/05/17) X-RAY SM INT F-THRU STD (06/01/19) X-RAY XM ESOPHAGUS 1CNTRST (06/01/19) X-RAY XM UPR GI TRC 1CNTRST (06/01/19) XCAPSL CTRC RMVL W/O ECP (12/28/12) (1) Postoperative wound hematoma SNOMED Code(s): 535736964 Code(s): [id number] - Current Visit: Yes Problem List Initiated/Reviewed/Updated: Yes Plan: I +D with culture of this area. risks explained to the pt to include bleeding, infection. She asks us to proceed.
--- NOTE | 2020-05-19 11:20 | PCM.OPNOTE ---
- General Post-Op/Procedure Note Date of Surgery/Procedure: 05/19/20 Operative Procedure(s): Incision and drainage of incision swelling. Findings: superior aspect of incision. 3x2 cm cavity with hematoma. Pre Op Diagnosis: wound infection Post-Op Diagnosis: wound hematoma Anesthesia Technique: Local (1% with epi 4 ml) Primary Surgeon: Brian Lugo Pathology: culture sent Complications: None Condition: Good Free Text/Narrative:: Intake & Output 05/18/20 05/19/20 05/19/20 22:59 06:59 14:59 Intake Total 299 557 31 Balance 299 557 31 see dictation [id number]
[2020-05-19] MEDS: Sodium Chloride 0.9% 10 ML Syringe FLUSH PRN ×3 (11:53→18:45)
[2020-05-19] MEDS: ceFAZolin 1 GM Vial IVPUSH SCH ×2 (11:54→18:39)
[2020-05-19] MEDS: Enoxaparin 40 MG/0.4 ML Syringe SUBCUT SCH (12:04)
[2020-05-19] MEDS: Multivitamin, Childrens Tab.Chew CHEW SCH ×2 (12:04→20:54)
--- NOTE | 2020-05-19 12:05 | PCM.SN.2 ---
- Free Text/Narrative Note: Was asked by RN to assist in IV start on a patient who is well known for difficult IV access. 1% xylocaine 0.1 cc's injected to site and a #22 jelco was started in right hand per sterile technique. Secured site and flushed hep lock with 10 cc's of saline. Report given to Genevieve Rodney RN.
[2020-05-19] MEDS: Heparin Sodium 10 Units/ML 5 ML Syringe FLUSH PRN (18:50)
[2020-05-20] MEDS: ceFAZolin 1 GM Vial IVPUSH SCH (02:44)
[2020-05-20] MEDS: Sodium Chloride 0.9% 10 ML Syringe FLUSH PRN (02:46)
[2020-05-20] MEDS ORDERED: Sodium Chloride 0.9% 500 ML IV ONE (03:28)
[2020-05-20] MEDS: oxyCODONE 5 MG Tab PO PRN ×5 (03:37→20:47)
[2020-05-20] MEDS: Sodium Chloride 0.9% 1,000 ML IV SCH ×3 (04:09→16:09)
[2020-05-20] MEDS: Pantoprazole 40 MG Tab.CR PO SCH (05:21)
[2020-05-20] MEDS: Calcium Carbonate 500 MG Tab.Chew PO SCH ×2 (07:54→18:19)
[2020-05-20] MEDS: BETA CAROTENE 25000 UNIT PO SCH (08:28)
[2020-05-20] MEDS: Sertraline 100 MG Tab PO SCH (08:29)
[2020-05-20] MEDS: Cholecalciferol (Vitamin D3) 25 MCG Tab PO SCH (08:29)
--- NOTE | 2020-05-20 08:38 | PCM.SURGPN ---
- General Info Date of Service: 05/20/20 - Review of Systems Gastrointestinal: Reports: Abdominal Pain (at incision site ) - Patient Data Vitals - Most Recent: Last Vital Signs Temp 98.2 F 05/20/20 04:06 Pulse 108 H 05/20/20 06:08 Resp 16 05/20/20 06:08 BP 99/62 05/20/20 06:08 Pulse Ox 94 L 05/20/20 05:00 Weight - Most Recent: 70.335 kg I&O - Last 24 Hours: Intake & Output 05/19/20 05/20/20 05/20/20 22:59 06:59 14:59 Intake Total 163 729 Balance 163 729 Xavier Results Last 24 Hrs: Microbiology 05/18/20 13:55 Aerobic Blood Culture - Preliminary Blood - Venous - Lab Draw NO GROWTH AFTER 1 DAY Anaerobic Blood Culture - Preliminary NO GROWTH AFTER 1 DAY 05/18/20 13:50 Aerobic Blood Culture - Preliminary Blood - Venous NO GROWTH AFTER 1 DAY Anaerobic Blood Culture - Preliminary NO GROWTH AFTER 1 DAY 05/19/20 11:00 Gram Stain - Preliminary Abdomen - Incision Routine Culture - Preliminary Anaerobic Culture - Preliminary 05/17/20 16:47 Urine Culture - Final Urine, Voided Escherichia Coli Med Orders - Current: Current Medications Acetaminophen (Tylenol) 650 mg PO Q6H PRN PRN Reason: Pain Last Admin: 05/18/20 20:28 Dose: 650 mg Documented by: Beta Carotene (A-Randall-25) 25,000 units PO DAILY [facility] Stop: 07/10/20 09:01 Last Admin: 05/20/20 08:28 Dose: 25,000 units Documented by: Calcium Carbonate/Glycine (Tums) 1,000 mg PO BIDMEALS [facility] Last Admin: 05/20/20 07:54 Dose: 1,000 mg Documented by: Cefazolin Sodium (Ancef) 1 gm IVPUSH Q8H [facility] Stop: 05/24/20 03:01 Last Admin: 05/20/20 02:44 Dose: 1 gm Documented by: Cholecalciferol (Vitamin D3) 50 mcg PO DAILY [facility] Last Admin: 05/20/20 08:29 Dose: 50 mcg Documented by: Cyanocobalamin (Vitamin B12) 1,000 mcg SUBCUT Q30D [facility] Enoxaparin Sodium (Lovenox) 40 mg SUBCUT 1200 [facility] Last Admin: 05/19/20 12:04 Dose: 40 mg Documented by: Heparin Sodium (Porcine) (Heparin Lock Flush 10 Units/Ml) 50 unit FLUSH ASDIRECTED PRN PRN Reason: FLUSH PICC NEED PER PROTOCO Last Admin: 05/19/20 18:50 Dose: 50 unit Documented by: Sodium Chloride (Normal Saline) 1,000 mls @ 125 mls/hr IV ASDIRECTED [facility] Last Admin: 05/20/20 07:56 Dose: 125 mls/hr Documented by: Melatonin (Melatonin) 6 mg PO BEDTIME PRN PRN Reason: SLEEP Multivitamins/Minerals/Vitamin C (Childrens Chewable Vitamin) 1 tab CHEW BID@ [facility] Last Admin: 05/19/20 20:54 Dose: 1 tab Documented by: Ondansetron HCl (Zofran Odt) 4 mg PO Q4H PRN PRN Reason: Nausea/Vomiting Last Admin: 05/15/20 13:07 Dose: 4 mg Documented by: Oxycodone HCl (Oxycodone) 5 mg PO Q4H PRN PRN Reason: pain 4-6/10 Last Admin: 05/20/20 07:53 Dose: 5 mg Documented by: Pantoprazole Sodium (Protonix) 40 mg PO DAILY@0600 [facility] Last Admin: 05/20/20 05:21 Dose: 40 mg Documented by: Polyethylene Glycol (Miralax) 17 gm PO MoWeFr@0900 [facility] Last Admin: 05/19/20 08:47 Dose: Not Given Documented by: Sertraline HCl (Zoloft) 100 mg PO DAILY [facility] Last Admin: 05/20/20 08:29 Dose: 100 mg Documented by: Sodium Chloride (Saline Flush) 10 ml FLUSH ASDIRECTED PRN PRN Reason: FLUSH Last Admin: 05/20/20 02:46 Dose: 10 ml Documented by: Discontinued Medications Clotrimazole (Mycelex) 10 mg .XX 5XDAY [facility] Stop: 05/26/20 13:01 Last Admin: 05/19/20 14:19 Dose: Not Given Documented by: Enoxaparin Sodium (Lovenox) 30 mg SUBCUT Q24H [facility] Last Admin: 05/18/20 11:39 Dose: 30 mg Documented by: Amino Ac/Electrol/Dextrose/Calcium (Clinimix E 08/02) 1,000 mls @ 41.667 mls/hr IV Q24H ED Stop: 05/19/20 15:29 Last Admin: 05/18/20 17:40 Dose: 41.667 mls/hr Documented by: Fat Emulsion Intravenous (Intralipid 20%) 250 mls @ 20.833 mls/hr IV BEDTIME ED Stop: 05/19/20 08:59 Last Admin: 05/18/20 20:41 Dose: 20.833 mls/hr Documented by: Sodium Chloride (Normal Saline) 500 mls @ 999 mls/hr IV .BOLUS ONE Stop: 05/20/20 03:58 Last Admin: 05/20/20 03:41 Dose: 999 mls/hr Documented by: Oxycodone HCl (Oxycodone) 10 mg PO Q4H PRN PRN Reason: pain 7-12/28 Stop: 05/15/20 09:00 Last Admin: 05/13/20 15:25 Dose: 10 mg Documented by: - Exam Wound/Incisions: Drainage (noted today not present yesterday. ). No: Erythema Sepsis Event Note - Evaluation Sepsis Screening Result: No Definite Risk - Focused Exam Vital Signs: Vital Signs Temp Pulse Resp BP Pulse Ox 05/20/20 06:08 108 H 16 99/62 05/20/20 05:00 102 H 16 108/62 94 L 05/20/20 04:06 98.2 F 118 H 18 104/62 93 L 05/20/20 03:15 98.4 F 135 H 20 97/61 94 L 05/20/20 03:03 135 H 05/19/20 21:30 100.1 F 96 16 106/72 94 L 05/19/20 21:00 112 H - Problem List & Annotations (1) Postoperative wound hematoma SNOMED Code(s): 091551952 Code(s): [id number] - Status: Acute Current Visit: Yes - Problem List Review Problem List Initiated/Reviewed/Updated: Yes - My Orders Last 24 Hours: Active Orders 24 hr Category Date Time Status RT Incentive Spirometry [RC] Q2HWA Care 05/20/20 02:38 Active Wound Care [RC] QSHIFT Care 05/19/20 11:20 Active Consult to Physician [CONS] Routine Cons 05/19/20 09:09 Ordered CULTURE ANAEROBIC + SMEAR [RM] Routine Lab 05/19/20 11:00 Results CULTURE ROUTINE + SMEAR [RM] Routine Lab 05/19/20 11:00 Results Cyanocobalamin (Vitamin B12) [Vitamin B12] Med 06/08/20 09:00 Active 1,000 mcg SUBCUT Q30D Enoxaparin [Lovenox] Med 05/19/20 12:00 Active 40 mg SUBCUT 1200 Heparin Sodium [Heparin Lock Flush 10 Units/ML] Med 05/19/20 16:38 Active 50 unit FLUSH ASDIRECTED PRN Sodium Chloride 0.9% [Normal Saline] 1,000 ml Med 05/20/20 04:10 Active IV ASDIRECTED Sodium Chloride 0.9% [Saline Flush] Med 05/19/20 10:48 Active 10 ml FLUSH ASDIRECTED PRN ceFAZolin [Ancef] Med 05/19/20 11:00 Active 1 gm IVPUSH Q8H Oral Nutrition Supplement [COMM] BIDAC Ot 05/19/20 08:00 Ordered Oral Nutrition Supplement [COMM] BIDAC Ot 05/19/20 17:00 Ordered Oral Nutrition Supplement [COMM] BIDAC Oth 05/20/20 08:00 Ordered Oral Nutrition Supplement [COMM] BIDAC Oth 05/20/20 17:00 Ordered Oral Nutrition Supplement [COMM] BIDAC Ot 05/21/20 08:00 Ordered Oral Nutrition Supplement [COMM] BIDAC Oth 05/21/20 17:00 Ordered Medication Orders Acetaminophen (Tylenol) 650 mg PO Q6H PRN PRN Reason: Pain Last Admin: 05/18/20 20:28 Dose: 650 mg Documented by: Admin: 05/18/20 09:18 Dose: 650 mg Documented by: Admin: 05/17/20 19:54 Dose: 650 mg Documented by: ALEXANDRA Beta Carotene (A-Randall-25) 25,000 units PO DAILY ED Stop: 07/10/20 09:01 Last Admin: 05/20/20 08:28 Dose: 25,000 units Documented by: Admin: 05/19/20 08:46 Dose: 25,000 units Documented by: Admin: 05/18/20 09:02 Dose: 25,000 units Documented by: Admin: 05/17/20 08:51 Dose: 25,000 units Documented by: Admin: 05/16/20 08:19 Dose: 25,000 units Documented by: Admin: 05/15/20 08:59 Dose: 25,000 units Documented by: Admin: 05/14/20 08:34 Dose: 25,000 units Documented by: Admin: 05/13/20 09:43 Dose: 25,000 units Documented by: MINH Calcium Carbonate/Glycine (Tums) 1,000 mg PO BIDMEALS [facility] Admin: 05/20/20 07:54 Dose: 1,000 mg Documented by: Admin: 05/19/20 18:39 Dose: 1,000 mg Documented by: Admin: 05/19/20 08:46 Dose: 1,000 mg Documented by: Admin: 05/18/20 17:44 Dose: 1,000 mg Documented by: Admin: 05/18/20 08:58 Dose: 1,000 mg Documented by: Admin: 05/17/20 17:54 Dose: 1,000 mg Documented by: Admin: 05/17/20 08:01 Dose: 1,000 mg Documented by: Admin: 05/16/20 17:47 Dose: 1,000 mg Documented by: Admin: 05/16/20 08:19 Dose: 1,000 mg Documented by: Admin: 05/15/20 17:33 Dose: 1,000 mg Documented by: Admin: 05/15/20 08:59 Dose: 1,000 mg Documented by: Admin: 05/14/20 18:25 Dose: 1,000 mg Documented by: Admin: 05/14/20 08:34 Dose: 1,000 mg Documented by: Admin: 05/13/20 17:25 Dose: 1,000 mg Documented by: Admin: 05/13/20 09:41 Dose: 1,000 mg Documented by: Admin: 05/12/20 18:23 Dose: 1,000 mg Documented by: [id number] Cefazolin Sodium (Ancef) 1 gm IVPUSH Q8H [facility] Stop: 05/24/20 03:01 Last Admin: 05/20/20 02:44 Dose: 1 gm Documented by: Admin: 05/19/20 18:39 Dose: 1 gm Documented by: Admin: 05/19/20 11:54 Dose: 1 gm Documented by: KALIA Cholecalciferol (Vitamin D3) 50 mcg PO DAILY [facility] Last Admin: 05/20/20 08:29 Dose: 50 mcg Documented by: Admin: 05/19/20 08:46 Dose: 50 mcg Documented by: Admin: 05/18/20 09:01 Dose: 50 mcg Documented by: Admin: 05/17/20 08:50 Dose: 50 mcg Documented by: Admin: 05/16/20 08:19 Dose: 50 mcg Documented by: Admin: 05/15/20 08:59 Dose: 50 mcg Documented by: Admin: 05/14/20 08:35 Dose: 50 mcg Documented by: Admin: 05/13/20 09:43 Dose: 50 mcg Documented by: MINH Cyanocobalamin (Vitamin B12) 1,000 mcg SUBCUT Q30D [facility] Enoxaparin Sodium (Lovenox) 40 mg SUBCUT 1200 [facility] Last Admin: 05/19/20 12:04 Dose: 40 mg Documented by: KALIA Heparin Sodium (Porcine) (Heparin Lock Flush 10 Units/Ml) 50 unit FLUSH ASDIRECTED PRN PRN Reason: FLUSH PICC NEED PER PROTOCO Last Admin: 05/19/20 18:50 Dose: 50 unit Documented by: KALIA Sodium Chloride (Normal Saline) 1,000 mls @ 125 mls/hr IV ASDIRECTED [facility] Last Admin: 05/20/20 07:56 Dose: 125 mls/hr Documented by: Infusion: 05/20/20 07:56 Dose: 125 mls/hr Documented by: Admin: 05/20/20 04:09 Dose: 125 mls/hr Documented by: URBAN Melatonin (Melatonin) 6 mg PO BEDTIME PRN PRN Reason: SLEEP Multivitamins/Minerals/Vitamin C (Childrens Chewable Vitamin) 1 tab CHEW BID@ [facility] Last Admin: 05/19/20 20:54 Dose: 1 tab Documented by: Admin: 05/19/20 12:04 Dose: 1 tab Documented by: Admin: 05/18/20 20:29 Dose: 1 tab Documented by: Admin: 05/18/20 11:35 Dose: 1 tab Documented by: Admin: 05/17/20 20:52 Dose: 1 tab Documented by: Admin: 05/17/20 11:02 Dose: 1 tab Documented by: Admin: 05/16/20 20:44 Dose: 1 tab Documented by: Admin: 05/16/20 11:01 Dose: 1 tab Documented by: Admin: 05/15/20 20:51 Dose: 1 tab Documented by: Admin: 05/15/20 12:19 Dose: 1 tab Documented by: Admin: 05/14/20 20:01 Dose: 1 tab Documented by: Admin: 05/14/20 13:22 Dose: 1 tab Documented by: Admin: 05/13/20 20:52 Dose: 1 tab Documented by: Admin: 05/13/20 12:07 Dose: 1 tab Documented by: Admin: 05/12/20 20:21 Dose: 1 tab Documented by: KELBY Ondansetron HCl (Zofran Odt) 4 mg PO Q4H PRN PRN Reason: Nausea/Vomiting Last Admin: 05/15/20 13:07 Dose: 4 mg Documented by: MINH Oxycodone HCl (Oxycodone) 5 mg PO Q4H PRN PRN Reason: pain 4-6/10 Last Admin: 05/20/20 07:53 Dose: 5 mg Documented by: Admin: 05/20/20 03:37 Dose: 5 mg Documented by: Admin: 05/19/20 23:11 Dose: 5 mg Documented by: Admin: 05/19/20 18:56 Dose: 5 mg Documented by: Admin: 05/19/20 14:50 Dose: 5 mg Documented by: Admin: 05/19/20 10:40 Dose: 5 mg Documented by: Admin: 05/19/20 06:44 Dose: 5 mg Documented by: Admin: 05/19/20 02:44 Dose: 5 mg Documented by: Admin: 05/18/20 22:41 Dose: 5 mg Documented by: Admin: 05/18/20 17:41 Dose: 5 mg Documented by: Admin: 05/18/20 11:34 Dose: 5 mg Documented by: Admin: 05/18/20 06:40 Dose: 5 mg Documented by: Admin: 05/18/20 02:29 Dose: 5 mg Documented by: Admin: 05/17/20 22:02 Dose: 5 mg Documented by: Admin: 05/17/20 17:53 Dose: 5 mg Documented by: Admin: 05/17/20 12:20 Dose: 5 mg Documented by: Admin: 05/17/20 08:01 Dose: 5 mg Documented by: Admin: 05/17/20 03:31 Dose: 5 mg Documented by: Admin: 05/16/20 23:20 Dose: 5 mg Documented by: Admin: 05/16/20 18:39 Dose: 5 mg Documented by: Admin: 05/16/20 14:08 Dose: 5 mg Documented by: Admin: 05/16/20 10:00 Dose: 5 mg Documented by: Admin: 05/16/20 05:03 Dose: 5 mg Documented by: Admin: 05/16/20 00:12 Dose: 5 mg Documented by: Admin: 05/15/20 17:36 Dose: 5 mg Documented by: Admin: 05/15/20 12:17 Dose: 5 mg Documented by: Admin: 05/15/20 06:50 Dose: 5 mg Documented by: Admin: 05/15/20 01:14 Dose: 5 mg Documented by: Admin: 05/14/20 20:00 Dose: 5 mg Documented by: Admin: 05/14/20 14:54 Dose: 5 mg Documented by: Admin: 05/14/20 10:54 Dose: 5 mg Documented by: Admin: 05/14/20 06:21 Dose: 5 mg Documented by: Admin: 05/14/20 02:16 Dose: 5 mg Documented by: Admin: 05/13/20 20:03 Dose: 5 mg Documented by: Admin: 05/13/20 05:49 Dose: 5 mg Documented by: KELBY Pantoprazole Sodium (Protonix) 40 mg PO DAILY@0600 [facility] Admin: 05/20/20 05:21 Dose: 40 mg Documented by: Admin: 05/19/20 06:38 Dose: 40 mg Documented by: Admin: 05/18/20 06:35 Dose: 40 mg Documented by: Admin: 05/17/20 06:05 Dose: 40 mg Documented by: Admin: 05/16/20 05:04 Dose: 40 mg Documented by: Admin: 05/15/20 05:24 Dose: 40 mg Documented by: Admin: 05/14/20 06:21 Dose: 40 mg Documented by: Admin: 05/13/20 05:45 Dose: 40 mg Documented by: KELBY Polyethylene Glycol (Miralax) 17 gm PO MoWeFr@0900 [facility] Admin: 05/19/20 08:47 Dose: Not Given Documented by: Admin: 05/17/20 08:53 Dose: 17 gm Documented by: Admin: 05/16/20 10:17 Dose: Not Given Documented by: Admin: 05/14/20 08:34 Dose: 17 gm Documented by: Admin: 05/12/20 15:57 Dose: 17 gm Documented by: GENE Sertraline HCl (Zoloft) 100 mg PO DAILY [facility] Admin: 05/20/20 08:29 Dose: 100 mg Documented by: Admin: 05/19/20 08:47 Dose: 100 mg Documented by: Admin: 05/18/20 09:02 Dose: 100 mg Documented by: Admin: 05/17/20 08:53 Dose: 100 mg Documented by: Admin: 05/16/20 08:19 Dose: 100 mg Documented by: Admin: 05/15/20 08:59 Dose: 100 mg Documented by: Admin: 05/14/20 08:35 Dose: 100 mg Documented by: Admin: 05/13/20 09:43 Dose: 100 mg Documented by: MINH Sodium Chloride (Saline Flush) 10 ml FLUSH ASDIRECTED PRN PRN Reason: FLUSH Last Admin: 05/20/20 02:46 Dose: 10 ml Documented by: Admin: 05/19/20 18:45 Dose: 10 ml Documented by: Admin: 05/19/20 18:39 Dose: 10 ml Documented by: Admin: 05/19/20 11:53 Dose: 10 ml Documented by: KALIA - Assessment Assessment (Free Text/Narrative):: with wound opened and packed should get better. - Plan Plan (Free Text/Narrative):: will up dressing changes to bid. and continue to follow
[2020-05-20] MEDS: Azithromycin 500 MG in Sodium Chloride 0.9% 250 ML IV SCH (10:14)
[2020-05-20] MEDS: ceFAZolin 2 GM in Premix Bag 1 BAG IV SCH ×2 (11:17→18:23)
[2020-05-20] MEDS: Enoxaparin 40 MG/0.4 ML Syringe SUBCUT SCH (11:18)
[2020-05-20] MEDS: Multivitamin, Childrens Tab.Chew CHEW SCH ×2 (11:18→20:47)
--- NOTE | 2020-05-20 12:13 | PN ---
DATE SEEN: 05/20/2020 Genevieve Peres is a 74-year-old female admitted with previous major surgery. Had an esophagojejunostomy excision, gastric polyps excision, and splenectomy. Clinical course has been complicated by recent superior wound infection versus hematoma. Wound underwent I and D per Dr. Lugo. Culture pending. Urine revealed positive for E coli, sensitive to ampicillin. Allergies noted. She has had a low-grade fever the last couple of days. Chest x-ray done on 05/18, revealed evidence of pneumonia. Presently on Ancef. We will add azithromycin. Otherwise, feeling better. Intake has been poor, volume is limited. LABORATORY STUDIES: 05/19/2020, white count 51286, hemoglobin 8.9, hematocrit 29, neutrophils 82%. INR . Electrolytes satisfactory. Mildly elevated liver enzymes. PHYSICAL EXAMINATION: VITAL SIGNS: 36.8, pulse 95, 105/58, 73, 16, 92. GENERAL: Appears more comfortable. NECK: Benign. Thyroid small. CHEST: Some decreased breath sounds. Coarse rhonchi. Distant heart sounds. Incision dry. IMPRESSION: Urosepsis versus pneumonia, wound under surveillance, urinary tract infection. PLAN: Medications, care, and treatment. Increase Ancef to 2 g q.8 h. We will add azithromycin mg 1 daily. Complementary care and well being, fluids and hydration, supportive measures in place. /[id number] RYAN/ABA
[2020-05-20] MEDS: Acetaminophen Soln 650 MG/20.3 ML UD Cup PO PRN (19:46)
[2020-05-21] MEDS: Sodium Chloride 0.9% 1,000 ML IV SCH ×3 (00:04→18:23)
[2020-05-21] MEDS: oxyCODONE 5 MG Tab PO PRN ×6 (01:34→23:07)
[2020-05-21] MEDS: ceFAZolin 2 GM in Premix Bag 1 BAG IV SCH ×3 (02:11→18:24)
[2020-05-21] MEDS: Pantoprazole 40 MG Tab.CR PO SCH (05:14)
[2020-05-21] MEDS: Calcium Carbonate 500 MG Tab.Chew PO SCH ×2 (08:00→18:50)
[2020-05-21] MEDS: Cholecalciferol (Vitamin D3) 25 MCG Tab PO SCH (09:10)
[2020-05-21] MEDS: BETA CAROTENE 25000 UNIT PO SCH (09:10)
[2020-05-21] MEDS: Sertraline 100 MG Tab PO SCH (09:11)
[2020-05-21] MEDS: Polyethylene Glycol 3350 Powder 17 GM Packet PO SCH (09:12)
[2020-05-21] MEDS: Azithromycin 500 MG in Sodium Chloride 0.9% 250 ML IV SCH (10:04)
--- NOTE | 2020-05-21 10:32 | PCM.SURGPN ---
- General Info Date of Service: 05/21/20 - Review of Systems Systems Review Comment:: dressing change. - Patient Data Vitals - Most Recent: Last Vital Signs Temp 98.2 F 05/21/20 05:24 Pulse 94 05/21/20 05:24 Resp 18 05/21/20 05:24 BP 113/65 05/21/20 05:24 Pulse Ox 98 05/21/20 05:24 Weight - Most Recent: 70.335 kg I&O - Last 24 Hours: Intake & Output 05/20/20 05/21/20 05/21/20 22:59 06:59 14:59 Intake Total 741 1100 610 Balance 741 1100 610 Xavier Results Last 24 Hrs: Microbiology 05/18/20 13:50 Aerobic Blood Culture - Preliminary Blood - Venous NO GROWTH AFTER 2 DAYS Anaerobic Blood Culture - Preliminary NO GROWTH AFTER 2 DAYS 05/18/20 13:55 Aerobic Blood Culture - Preliminary Blood - Venous - Lab Draw NO GROWTH AFTER 2 DAYS Anaerobic Blood Culture - Preliminary NO GROWTH AFTER 2 DAYS Med Orders - Current: Current Medications Acetaminophen (Tylenol) 650 mg PO Q6H PRN PRN Reason: Pain Last Admin: 05/20/20 19:46 Dose: 650 mg Documented by: Beta Carotene (A-Randall-25) 25,000 units PO DAILY [facility] Stop: 07/10/20 09:01 Last Admin: 05/21/20 09:10 Dose: 25,000 units Documented by: Calcium Carbonate/Glycine (Tums) 1,000 mg PO BIDMEALS [facility] Last Admin: 05/21/20 08:00 Dose: 1,000 mg Documented by: Cholecalciferol (Vitamin D3) 50 mcg PO DAILY [facility] Last Admin: 05/21/20 09:10 Dose: 50 mcg Documented by: Cyanocobalamin (Vitamin B12) 1,000 mcg SUBCUT Q30D [facility] Enoxaparin Sodium (Lovenox) 40 mg SUBCUT 1200 [facility] Last Admin: 05/20/20 11:18 Dose: 40 mg Documented by: Heparin Sodium (Porcine) (Heparin Lock Flush 10 Units/Ml) 50 unit FLUSH ASDIRECTED PRN PRN Reason: FLUSH PICC NEED PER PROTOCO Last Admin: 05/19/20 18:50 Dose: 50 unit Documented by: Sodium Chloride (Normal Saline) 1,000 mls @ 125 mls/hr IV ASDIRECTED [facility] Last Admin: 05/21/20 08:15 Dose: 125 mls/hr Documented by: Azithromycin 500 mg/ Sodium (Chloride) 250 mls @ 250 mls/hr IV Q24H [facility] Stop: 05/24/20 23:59 Last Admin: 05/21/20 10:04 Dose: 250 mls/hr Documented by: Cefazolin Sodium/Dextrose 2 gm (/ Premix) 50 mls @ 200 mls/hr IV Q8H [facility] Stop: 05/24/20 23:59 Last Admin: 05/21/20 02:11 Dose: 200 mls/hr Documented by: Melatonin (Melatonin) 6 mg PO BEDTIME PRN PRN Reason: SLEEP Multivitamins/Minerals/Vitamin C (Childrens Chewable Vitamin) 1 tab CHEW BID@ [facility] Last Admin: 05/20/20 20:47 Dose: 1 tab Documented by: Ondansetron HCl (Zofran Odt) 4 mg PO Q4H PRN PRN Reason: Nausea/Vomiting Last Admin: 05/15/20 13:07 Dose: 4 mg Documented by: Oxycodone HCl (Oxycodone) 5 mg PO Q4H PRN PRN Reason: pain 4-6/10 Last Admin: 05/21/20 06:36 Dose: 5 mg Documented by: Pantoprazole Sodium (Protonix) 40 mg PO DAILY@0600 [facility] Last Admin: 05/21/20 05:14 Dose: 40 mg Documented by: Polyethylene Glycol (Miralax) 17 gm PO MoWeFr@0900 [facility] Last Admin: 05/21/20 09:12 Dose: 17 gm Documented by: Sertraline HCl (Zoloft) 100 mg PO DAILY [facility] Last Admin: 05/21/20 09:11 Dose: 100 mg Documented by: Sodium Chloride (Saline Flush) 10 ml FLUSH ASDIRECTED PRN PRN Reason: FLUSH Last Admin: 05/20/20 02:46 Dose: 10 ml Documented by: Discontinued Medications Cefazolin Sodium (Ancef) 1 gm IVPUSH Q8H [facility] Stop: 05/24/20 03:01 Last Admin: 05/20/20 02:44 Dose: 1 gm Documented by: Clotrimazole (Mycelex) 10 mg .XX 5XDAY [facility] Stop: 05/26/20 13:01 Last Admin: 05/19/20 14:19 Dose: Not Given Documented by: Enoxaparin Sodium (Lovenox) 30 mg SUBCUT Q24H [facility] Last Admin: 05/18/20 11:39 Dose: 30 mg Documented by: Amino Ac/Electrol/Dextrose/Calcium (Clinimix E /15) 1,000 mls @ 41.667 mls/hr IV Q24H [facility] Stop: 05/19/20 15:29 Last Admin: 05/18/20 17:40 Dose: 41.667 mls/hr Documented by: Fat Emulsion Intravenous (Intralipid 20%) 250 mls @ 20.833 mls/hr IV BEDTIME [facility] Stop: 05/19/20 08:59 Last Admin: 05/18/20 20:41 Dose: 20.833 mls/hr Documented by: Sodium Chloride (Normal Saline) 500 mls @ 999 mls/hr IV .BOLUS ONE Stop: 05/20/20 03:58 Last Admin: 05/20/20 03:41 Dose: 999 mls/hr Documented by: Oxycodone HCl (Oxycodone) 10 mg PO Q4H PRN PRN Reason: pain 7-10/10 Stop: 05/15/20 09:00 Last Admin: 05/13/20 15:25 Dose: 10 mg Documented by: - Exam Wound/Incisions: Other (wound has an odor to it. drainage still present. mild tenderness. ) Sepsis Event Note - Evaluation Sepsis Screening Result: No Definite Risk - Focused Exam Vital Signs: Vital Signs Temp Pulse Resp BP Pulse Ox 05/21/20 05:24 98.2 F 94 18 113/65 98 05/21/20 01:30 98.2 F - Problem List & Annotations (1) Postoperative wound hematoma SNOMED Code(s): 367441487 Code(s): XUG1542 - Status: Ruled-out Current Visit: Yes (2) Postoperative wound abscess SNOMED Code(s): 39710287 Code(s): T81.49XA - INFECTION FOLLOWING A PROCEDURE, OTHER SURGICAL SITE, INIT Status: Acute Current Visit: Yes - Problem List Review Problem List Initiated/Reviewed/Updated: Yes - My Orders Last 24 Hours: Active Orders 24 hr Category Date Time Status Azithromycin [Zithromax] 500 mg Med 05/20/20 10:00 Active Sodium Chloride 0.9% [Normal Saline (AdvBag)] 250 ml IV Q24H Cyanocobalamin (Vitamin B12) [Vitamin B12] Med 06/08/20 09:00 Active 1,000 mcg SUBCUT Q30D ceFAZolin [Ancef 2 GM/50 ML] 2 gm Med 05/20/20 11:00 Active Premix Bag 1 bag IV Q8H Oral Nutrition Supplement [COMM] BIDAC Oth 05/20/20 17:00 Ordered Oral Nutrition Supplement [COMM] BIDAC Oth 05/21/20 08:00 Ordered Oral Nutrition Supplement [COMM] BIDAC Oth 05/21/20 17:00 Ordered Medication Orders Acetaminophen (Tylenol) 650 mg PO Q6H PRN PRN Reason: Pain Last Admin: 05/20/20 19:46 Dose: 650 mg Documented by: Admin: 05/18/20 20:28 Dose: 650 mg Documented by: Admin: 05/18/20 09:18 Dose: 650 mg Documented by: Admin: 05/17/20 19:54 Dose: 650 mg Documented by: ALEXANDRA Beta Carotene (A-Randall-25) 25,000 units PO DAILY [facility] Stop: 07/10/20 09:01 Last Admin: 05/21/20 09:10 Dose: 25,000 units Documented by: Admin: 05/20/20 08:28 Dose: 25,000 units Documented by: Admin: 05/19/20 08:46 Dose: 25,000 units Documented by: Admin: 05/18/20 09:02 Dose: 25,000 units Documented by: Admin: 05/17/20 08:51 Dose: 25,000 units Documented by: Admin: 05/16/20 08:19 Dose: 25,000 units Documented by: Admin: 05/15/20 08:59 Dose: 25,000 units Documented by: Admin: 05/14/20 08:34 Dose: 25,000 units Documented by: Admin: 05/13/20 09:43 Dose: 25,000 units Documented by: MINH Calcium Carbonate/Glycine (Tums) 1,000 mg PO BIDMEALS [facility] Last Admin: 05/21/20 08:00 Dose: 1,000 mg Documented by: Admin: 05/20/20 18:19 Dose: 1,000 mg Documented by: Admin: 05/20/20 07:54 Dose: 1,000 mg Documented by: Admin: 05/19/20 18:39 Dose: 1,000 mg Documented by: Admin: 05/19/20 08:46 Dose: 1,000 mg Documented by: Admin: 05/18/20 17:44 Dose: 1,000 mg Documented by: Admin: 05/18/20 08:58 Dose: 1,000 mg Documented by: Admin: 05/17/20 17:54 Dose: 1,000 mg Documented by: Admin: 05/17/20 08:01 Dose: 1,000 mg Documented by: Admin: 05/16/20 17:47 Dose: 1,000 mg Documented by: Admin: 05/16/20 08:19 Dose: 1,000 mg Documented by: Admin: 05/15/20 17:33 Dose: 1,000 mg Documented by: Admin: 05/15/20 08:59 Dose: 1,000 mg Documented by: Admin: 05/14/20 18:25 Dose: 1,000 mg Documented by: Admin: 05/14/20 08:34 Dose: 1,000 mg Documented by: Admin: 05/13/20 17:25 Dose: 1,000 mg Documented by: Admin: 05/13/20 09:41 Dose: 1,000 mg Documented by: Admin: 05/12/20 18:23 Dose: 1,000 mg Documented by: [email or web address] Cholecalciferol (Vitamin D3) 50 mcg PO DAILY ED Last Admin: 05/21/20 09:10 Dose: 50 mcg Documented by: Admin: 05/20/20 08:29 Dose: 50 mcg Documented by: Admin: 05/19/20 08:46 Dose: 50 mcg Documented by: Admin: 05/18/20 09:01 Dose: 50 mcg Documented by: Admin: 05/17/20 08:50 Dose: 50 mcg Documented by: Admin: 05/16/20 08:19 Dose: 50 mcg Documented by: Admin: 05/15/20 08:59 Dose: 50 mcg Documented by: Admin: 05/14/20 08:35 Dose: 50 mcg Documented by: Admin: 05/13/20 09:43 Dose: 50 mcg Documented by: MINH Cyanocobalamin (Vitamin B12) 1,000 mcg SUBCUT Q30D [facility] Enoxaparin Sodium (Lovenox) 40 mg SUBCUT 1200 [facility] Last Admin: 05/20/20 11:18 Dose: 40 mg Documented by: Admin: 05/19/20 12:04 Dose: 40 mg Documented by: KALIA Heparin Sodium (Porcine) (Heparin Lock Flush 10 Units/Ml) 50 unit FLUSH ASDIRECTED PRN PRN Reason: [facility] Last Admin: 05/19/20 18:50 Dose: 50 unit Documented by: KALIA Sodium Chloride (Normal Saline) 1,000 mls @ 125 mls/hr IV ASDIRECTED [facility] Last Admin: 05/21/20 08:15 Dose: 125 mls/hr Documented by: Infusion: 05/21/20 08:04 Dose: 125 mls/hr Documented by: Admin: 05/21/20 00:04 Dose: 125 mls/hr Documented by: Infusion: 05/21/20 00:04 Dose: 125 mls/hr Documented by: Admin: 05/20/20 16:09 Dose: 125 mls/hr Documented by: Infusion: 05/20/20 15:56 Dose: 125 mls/hr Documented by: Admin: 05/20/20 07:56 Dose: 125 mls/hr Documented by: Infusion: 05/20/20 07:56 Dose: 125 mls/hr Documented by: Admin: 05/20/20 04:09 Dose: 125 mls/hr Documented by: URBAN Azithromycin 500 mg/ Sodium (Chloride) 250 mls @ 250 mls/hr IV Q24H [facility] Stop: 05/24/20 23:59 Last Admin: 05/21/20 10:04 Dose: 250 mls/hr Documented by: Admin: 05/20/20 10:14 Dose: 250 mls/hr Documented by: KAMI Cefazolin Sodium/Dextrose 2 gm (/ Premix) 50 mls @ 200 mls/hr IV Q8H [facility] Stop: 05/24/20 23:59 Last Admin: 05/21/20 02:11 Dose: 200 mls/hr Documented by: Infusion: 05/20/20 18:38 Dose: 200 mls/hr Documented by: Admin: 05/20/20 18:23 Dose: 200 mls/hr Documented by: Infusion: 05/20/20 11:32 Dose: 200 mls/hr Documented by: Admin: 05/20/20 11:17 Dose: 200 mls/hr Documented by: KAMI Melatonin (Melatonin) 6 mg PO BEDTIME PRN PRN Reason: SLEEP Multivitamins/Minerals/Vitamin C (Childrens Chewable Vitamin) 1 tab CHEW BID@ [facility] Last Admin: 05/20/20 20:47 Dose: 1 tab Documented by: Admin: 05/20/20 11:18 Dose: 1 tab Documented by: Admin: 05/19/20 20:54 Dose: 1 tab Documented by: Admin: 05/19/20 12:04 Dose: 1 tab Documented by: Admin: 05/18/20 20:29 Dose: 1 tab Documented by: Admin: 05/18/20 11:35 Dose: 1 tab Documented by: Admin: 05/17/20 20:52 Dose: 1 tab Documented by: Admin: 05/17/20 11:02 Dose: 1 tab Documented by: Admin: 05/16/20 20:44 Dose: 1 tab Documented by: Admin: 05/16/20 11:01 Dose: 1 tab Documented by: Admin: 05/15/20 20:51 Dose: 1 tab Documented by: Admin: 05/15/20 12:19 Dose: 1 tab Documented by: Admin: 05/14/20 20:01 Dose: 1 tab Documented by: Admin: 05/14/20 13:22 Dose: 1 tab Documented by: Admin: 05/13/20 20:52 Dose: 1 tab Documented by: Admin: 05/13/20 12:07 Dose: 1 tab Documented by: Admin: 05/12/20 20:21 Dose: 1 tab Documented by: KELBY Ondansetron HCl (Zofran Odt) 4 mg PO Q4H PRN PRN Reason: Nausea/Vomiting Last Admin: 05/15/20 13:07 Dose: 4 mg Documented by: MINH Oxycodone HCl (Oxycodone) 5 mg PO Q4H PRN PRN Reason: pain 4-6 Last Admin: 05/21/20 06:36 Dose: 5 mg Documented by: Admin: 05/21/20 01:34 Dose: 5 mg Documented by: Admin: 05/20/20 20:47 Dose: 5 mg Documented by: Admin: 05/20/20 16:44 Dose: 5 mg Documented by: Admin: 05/20/20 12:35 Dose: 5 mg Documented by: Admin: 05/20/20 07:53 Dose: 5 mg Documented by: Admin: 05/20/20 03:37 Dose: 5 mg Documented by: Admin: 05/19/20 23:11 Dose: 5 mg Documented by: Admin: 05/19/20 18:56 Dose: 5 mg Documented by: Admin: 05/19/20 14:50 Dose: 5 mg Documented by: Admin: 05/19/20 10:40 Dose: 5 mg Documented by: Admin: 05/19/20 06:44 Dose: 5 mg Documented by: Admin: 05/19/20 02:44 Dose: 5 mg Documented by: Admin: 05/18/20 22:41 Dose: 5 mg Documented by: Admin: 05/18/20 17:41 Dose: 5 mg Documented by: Admin: 05/18/20 11:34 Dose: 5 mg Documented by: Admin: 05/18/20 06:40 Dose: 5 mg Documented by: Admin: 05/18/20 02:29 Dose: 5 mg Documented by: Admin: 05/17/20 22:02 Dose: 5 mg Documented by: Admin: 05/17/20 17:53 Dose: 5 mg Documented by: Admin: 05/17/20 12:20 Dose: 5 mg Documented by: Admin: 05/17/20 08:01 Dose: 5 mg Documented by: Admin: 05/17/20 03:31 Dose: 5 mg Documented by: Admin: 05/16/20 23:20 Dose: 5 mg Documented by: Admin: 05/16/20 18:39 Dose: 5 mg Documented by: Admin: 05/16/20 14:08 Dose: 5 mg Documented by: Admin: 05/16/20 10:00 Dose: 5 mg Documented by: Admin: 05/16/20 05:03 Dose: 5 mg Documented by: Admin: 05/16/20 00:12 Dose: 5 mg Documented by: Admin: 05/15/20 17:36 Dose: 5 mg Documented by: Admin: 05/15/20 12:17 Dose: 5 mg Documented by: Admin: 05/15/20 06:50 Dose: 5 mg Documented by: Admin: 05/15/20 01:14 Dose: 5 mg Documented by: Admin: 05/14/20 20:00 Dose: 5 mg Documented by: Admin: 05/14/20 14:54 Dose: 5 mg Documented by: Admin: 05/14/20 10:54 Dose: 5 mg Documented by: Admin: 05/14/20 06:21 Dose: 5 mg Documented by: Admin: 05/14/20 02:16 Dose: 5 mg Documented by: Admin: 05/13/20 20:03 Dose: 5 mg Documented by: Admin: 05/13/20 05:49 Dose: 5 mg Documented by: KELBY Pantoprazole Sodium (Protonix) 40 mg PO DAILY@0600 [facility] Admin: 05/21/20 05:14 Dose: 40 mg Documented by: Admin: 05/20/20 05:21 Dose: 40 mg Documented by: Admin: 05/19/20 06:38 Dose: 40 mg Documented by: Admin: 05/18/20 06:35 Dose: 40 mg Documented by: Admin: 05/17/20 06:05 Dose: 40 mg Documented by: Admin: 05/16/20 05:04 Dose: 40 mg Documented by: Admin: 05/15/20 05:24 Dose: 40 mg Documented by: Admin: 05/14/20 06:21 Dose: 40 mg Documented by: Admin: 05/13/20 05:45 Dose: 40 mg Documented by: KELBY Polyethylene Glycol (Miralax) 17 gm PO MoWeFr@0900 [facility] Admin: 05/21/20 09:12 Dose: 17 gm Documented by: Admin: 05/19/20 08:47 Dose: Not Given Documented by: Admin: 05/17/20 08:53 Dose: 17 gm Documented by: Admin: 05/16/20 10:17 Dose: Not Given Documented by: Admin: 05/14/20 08:34 Dose: 17 gm Documented by: Admin: 05/12/20 15:57 Dose: 17 gm Documented by: GENE Sertraline HCl (Zoloft) 100 mg PO DAILY [facility] Admin: 05/21/20 09:11 Dose: 100 mg Documented by: Admin: 05/20/20 08:29 Dose: 100 mg Documented by: Admin: 05/19/20 08:47 Dose: 100 mg Documented by: Admin: 05/18/20 09:02 Dose: 100 mg Documented by: Admin: 05/17/20 08:53 Dose: 100 mg Documented by: Admin: 05/16/20 08:19 Dose: 100 mg Documented by: Admin: 05/15/20 08:59 Dose: 100 mg Documented by: Admin: 05/14/20 08:35 Dose: 100 mg Documented by: Admin: 05/13/20 09:43 Dose: 100 mg Documented by: MINH Sodium Chloride (Saline Flush) 10 ml FLUSH ASDIRECTED PRN PRN Reason: FLUSH Last Admin: 05/20/20 02:46 Dose: 10 ml Documented by: Admin: 05/19/20 18:45 Dose: 10 ml Documented by: Admin: 05/19/20 18:39 Dose: 10 ml Documented by: Admin: 05/19/20 11:53 Dose: 10 ml Documented by: KALIA - Assessment Assessment (Free Text/Narrative):: prelim report growth of e coli sensitive to cefazolin did see scattered cocci still pending as to id. - Plan Plan (Free Text/Narrative):: antibiotic currently covers the bacteria in question. will pack wound with betadine soaked gauze. dressing changes bid and prn
[2020-05-21] MEDS: Metoclopramide 5 MG Tab PO SCH ×3 (11:31→23:31)
--- NOTE | 2020-05-21 12:29 | PN ---
DATE SEEN: 05/21/2020 Continued ongoing care. SUBJECTIVE: Maya Peres is a 74-year-old female admitted for postoperative care and hyperalimentation. Hyperalimentation has been discontinued. Interval care per [facility]. Presented recently with a low-grade fever, chills, and sweats. Urinalysis noted positive culture for E. coli sensitive to all antibiotics. Radiographs revealed a bibasilar pneumonia. Present therapy includes Ancef and azithromycin. Fevers abated, cough is clearing, respiratory activity has been unremarkable. Has been using some O2 at bedtime. She had a wound and underwent an I and D by Dr. Lugo, being followed accordingly. Culture from the wound revealed no specific bug present. Otherwise, doing well. LABORATORY STUDIES: CBC would be performed today. OBJECTIVE: VITAL SIGNS: 36.8, 94, 113/65, 18, and 98%. GENERAL: Appears in good spirits. HEENT: Mouth and oropharynx clear. NECK: Benign. Thyroid small. CHEST: Some decreased breath sounds, both bases. HEART: Distant heart sounds. Occasional ectopy. ABDOMEN: Wound was viewed under Dr. Lugo's supervision. ASSESSMENT: 1. Complicated gastrointestinal surgery. 2. Poor oral intake. 3. Pneumonia. 4. Urinary tract infection, presently under treatment. 5. Wound under surveillance. PLAN: Medications, care, and treatment appropriate. Continue Ancef and azithromycin for at least 1 more day, supportive management and care. /[id number] RYAN/ABA
[2020-05-21] MEDS: Multivitamin, Childrens Tab.Chew CHEW SCH ×2 (13:34→20:03)
[2020-05-21] MEDS: Enoxaparin 40 MG/0.4 ML Syringe SUBCUT SCH (13:35)
[2020-05-21] MEDS: Acetaminophen Soln 650 MG/20.3 ML UD Cup PO PRN (18:56)
[2020-05-21] MEDS ORDERED: Sodium Chloride 0.9% 1,000 ML IV ONE (19:10)
[2020-05-21] MEDS ORDERED: Diltiazem 120 MG Cap.CD PO ONE (20:05)
[2020-05-21] MEDS: Heparin Sodium 10 Units/ML 5 ML Syringe FLUSH PRN (21:10)
[2020-05-22] MEDS: ceFAZolin 2 GM in Premix Bag 1 BAG IV SCH (02:28)
[2020-05-22] MEDS: Sodium Chloride 0.9% 10 ML Syringe FLUSH PRN (02:45)
[2020-05-22] MEDS: Heparin Sodium 10 Units/ML 5 ML Syringe FLUSH PRN (02:47)
[2020-05-22] MEDS: oxyCODONE 5 MG Tab PO PRN ×2 (03:00→07:20)
[2020-05-22] MEDS: Pantoprazole 40 MG Tab.CR PO SCH (06:30)
[2020-05-22] MEDS: Metoclopramide 5 MG Tab PO SCH (06:30)
--- NOTE | 2020-05-22 06:50 | OR ---
DATE OF OPERATION: 05/19/2020 SURGEON: Brian Lugo MD PROCEDURE PERFORMED: Incision and drainage of abdominal wall hematoma. PREOPERATIVE DIAGNOSIS: Wound infection. POSTOPERATIVE DIAGNOSIS: Wound hematoma. INDICATIONS FOR PROCEDURE: Ms. 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 This was done at [facility]. She is here for nutritional support. Was noted in the past couple days to have low-grade fever and UTI, but she also had some swelling and tenderness in the superior portion of her incision. While there was no erythema noted, she is noted to have a tender area with some slight warmth compared to the other area. This appeared to be consistent with abscess versus hematoma and she was offered and accepted an incision and drainage. DESCRIPTION OF OPERATION: After the area was prepped with DuraPrep, it was draped off. The planned incision site was infiltrated with a 1:1 mixture of 1% lidocaine with epinephrine, approximately 4 mL were used. The incision then was divided using a hemostat and the cavity was entered. No zuleika pus was encountered. Careful digital palpation of the wound revealed a cavity with hematoma present. The underlying fascia appeared to be intact. The cultures were taken for aerobic and anaerobic and then the wound was packed with sterile 4x4s and covered with an ABD. The patient tolerated the procedure well. /[id number] /MODL
[2020-05-22 07:04] VITALS: PULSE 124
[2020-05-22 07:26] VITALS: BP 97/62
[2020-05-22] MEDS: Calcium Carbonate 500 MG Tab.Chew PO SCH (08:40)
[2020-05-22] MEDS: BETA CAROTENE 25000 UNIT PO SCH (08:42)
[2020-05-22] MEDS: Cholecalciferol (Vitamin D3) 25 MCG Tab PO SCH (08:42)
[2020-05-22] MEDS: Sertraline 100 MG Tab PO SCH (08:43)
[2020-05-22] MEDS ORDERED: Metoprolol Succinate 50 MG Tab.ER PO SCH (09:15)
[2020-05-22] MEDS ORDERED: Apixaban 5 MG Tab PO SCH (09:15)
--- NOTE | 2020-05-22 10:10 | CR ---
INDICATION: Followup pneumonia. CHEST ONE VIEW: AP portable upright view of the chest 05/21/20 was compared with 05/18/20 and 01/02/14. Increasing infiltration is noted in the right mid and upper lung field and left lower lung field, possibly with some atelectasis especially on the left, and with continued pleural effusion of small size on the left. The heart appears prominent. The upper lung field pulmonary vasculature also prominent raising question of additional CHF. This should be correlated clinically. 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 MTDD
--- NOTE | 2020-05-22 10:47 | DISCH ---
DISCHARGE DATE: 05/22/2020 Maya Peres is a 74-year-old female, transferred from [place] in [place]. She had undergone an esophagojejunostomy, excision of gastric pouch, and splenectomy. Please see admitting history and physical. Primary reason for admission was strengthening PT/OT in 1 week for hyperalimentation. Clinical course was complicated. She developed low-grade fever, chills, and sweats. UTI confirmed E coli infection, and a right-sided bilateral pneumonia. She was started on intravenous Ancef and azithromycin for treatment of urinary and pneumonia. Clinical response was satisfactory. Urine cleared, fever resolved, radiographs remained stable. Independence through her swing bed stay, she was found to have an evolving warmth redness of the superior part of her lengthy abdominal incision. Was seen by Dr. Lugo, underwent incision and drainage of mostly hematomatous material. Has been packed on a routine basis. Continues with persistent foul discharge. Culture revealed E coli in small amounts. Sensitive to the antibiotics that we chose. On the evening of 05/21/2020, she went into tachycardia, atrial fibrillation. EKG was performed, chest x-ray revealed persistent vascular congestion, elevated BNP, normal troponin. Was given 1 dose of intravenous Cardizem and was seen in the morning of 05/22/2020 in described events above. Because of her clinical concerns of wound infection, increasing serosanguineous drainage, continued treatment of pneumonia, new onset of atrial fibrillation, admission to acute care appropriate. Please see admitting history and physical. /[id number] RYAN/ABA
[2020-05-22] MEDS ORDERED: Furosemide 40 MG Tab PO SCH (14:00)
[2020-06-08] MEDS ORDERED: Cyanocobalamin (Vitamin B12) 1,000 MCG/ML SDV SUBCUT SCH (09:00)
== END 2020-05-22 09:25 | disposition critical access hospital (66) | DRG 939 ==
LOC: FB.MS 13:43
PROVIDERS: ADMIT Family Medicine; ATTEND Family Medicine
PROC: 0J980ZZ Drainage of Abdomen Subcutaneous Tissue and Fascia, Open Approach (ICD-10-PCS; principal; 2020-05-19)
DX: R53.1 Weakness (principal); E43 Unspecified severe protein-calorie malnutrition; J18.9 Pneumonia, unspecified organism; L76.32 Postprocedural hematoma of skin and subcutaneous tissue following other procedure; T81.49XA Infection following a procedure, other surgical site, initial encounter; N39.0 Urinary tract infection, site not specified; R63.2 Polyphagia; Z20.822 Contact with and (suspected) exposure to COVID-19; R62.7 Adult failure to thrive; I50.9 Heart failure, unspecified; K21.9 Gastro-esophageal reflux disease without esophagitis; M81.0 Age-related osteoporosis without current pathological fracture; Z66 Do not resuscitate; M19.90 Unspecified osteoarthritis, unspecified site; H04.123 Dry eye syndrome of bilateral lacrimal glands; F41.9 Anxiety disorder, unspecified; F32.9 Major depressive disorder, single episode, unspecified; G62.9 Polyneuropathy, unspecified; E66.9 Obesity, unspecified; D64.9 Anemia, unspecified; Z96.649 Presence of unspecified artificial hip joint; I12.9 Hypertensive chronic kidney disease with stage 1 through stage 4 chronic kidney disease, or unspecified chronic kidney disease; K59.00 Constipation, unspecified; B96.20 Unspecified Escherichia coli [E. coli] as the cause of diseases classified elsewhere; I48.91 Unspecified atrial fibrillation; Z98.49 Cataract extraction status, unspecified eye; Z88.1 Allergy status to other antibiotic agents; Z88.6 Allergy status to analgesic agent; Z88.7 Allergy status to serum and vaccine; Z88.0 Allergy status to penicillin; Z88.2 Allergy status to sulfonamides; Z79.899 Other long term (current) drug therapy; H91.90 Unspecified hearing loss, unspecified ear; Z90.49 Acquired absence of other specified parts of digestive tract; Z90.710 Acquired absence of both cervix and uterus; Z98.890 Other specified postprocedural states; Z98.84 Bariatric surgery status
CPT/HCPCS: 36410; 36415; 71045; 71046; 80048; 80053; 80061; 81001; 83880; 84484; 85025; 85027; 85610; 87040; 87070; 87075; 87086; 87088; 87186; 87205; 93005; 94150; 97110-GO; 97110-GP; 97116-GP; 97161-GP; 97165-GO; 97530-GO; 97530-GP; 97535-GO; A9270-GY; J0456; J0690; J1642; J1650; J3490; J7030; J7040; J7050; U0002

== ENCOUNTER 2020-05-22 09:25 | Inpatient (IN) | payer MEDICARE ==
[2020-05-22] MEDS ORDERED: Acetaminophen Soln 650 MG/20.3 ML UD Cup PO PRN (09:45)
--- NOTE | 2020-05-22 09:50 | PCM.SURGPN ---
- General Info Date of Service: 05/22/20 - Review of Systems Systems Review Comment:: dressing change. pt continues to complain of abd pain. has had other cardiac issues as well overnight - Exam Wound/Incisions: Other (during dressing change has pronounced drainage into the wound suggesting an abscess. ) GI/Abdominal Exam: Soft, Tender (in epigastrium ) - Problem List & Annotations (1) Postoperative wound abscess SNOMED Code(s): 29735870 Code(s): T81.49XA - INFECTION FOLLOWING A PROCEDURE, OTHER SURGICAL SITE, INIT Status: Acute Current Visit: No - Problem List Review Problem List Initiated/Reviewed/Updated: Yes - My Orders Last 24 Hours: Active Orders 24 hr Category Date Time Status Patient Status [ADT] Routine ADT 05/22/20 09:41 Active Ambulate [RC] ASDIRECTED Care 05/22/20 09:41 Ordered EKG Documentation Completion [RC] ASDIRECTED Care 05/22/20 09:44 Ordered Oxygen Therapy [RC] PRN Care 05/22/20 09:41 Ordered Pulse Oximetry [RC] PRN Care 05/22/20 09:43 Ordered Up With Assistance [RC] ASDIRECTED Care 05/22/20 09:41 Ordered Up to Chair [RC] ASDIRECTED Care 05/22/20 09:41 Ordered VTE/DVT Education [RC] Per Unit Routine Care 05/22/20 09:41 Ordered Vital Signs [RC] Q4H Care 05/22/20 09:41 Ordered OT Evaluation and Treatment [CONS] Routine Cons 05/22/20 09:41 Active PT Evaluation and Treatment [CONS] Routine Cons 05/22/20 09:41 Active 2 Gram Sodium Diet [DIET] Diet 05/22/20 Lunch Ordered CTA Abd Pelv w Cont [CT] Routine Exams 05/22/20 09:44 Ordered BLOOD GAS ARTERIAL [BG] Routine Lab 05/22/20 09:41 Ordered Sodium Chloride 0.9% [Saline Flush] Med 05/22/20 09:41 Ordered 10 ml FLUSH ASDIRECTED PRN Saline Lock Insert [OM.PC] Routine Oth 05/22/20 09:41 Ordered Resuscitation Status Routine Resus Stat 05/22/20 09:41 Ordered EKG 12 Lead [EK] Routine Ther 05/22/20 09:41 Ordered - Plan Plan (Free Text/Narrative):: will order a ct scan with oral contrast to rule out any intraabdominal abscess.
[2020-05-22] MEDS ORDERED: Apixaban 5 MG Tab PO SCH (10:00)
[2020-05-22] MEDS ORDERED: Furosemide 40 MG Tab PO SCH (10:00)
[2020-05-22] MEDS ORDERED: Azithromycin 500 MG in Sodium Chloride 0.9% 250 ML IV SCH (10:00)
[2020-05-22] MEDS ORDERED: Metoprolol Succinate 50 MG Tab.ER PO SCH (10:00)
[2020-05-22] MEDS ORDERED: Heparin Sodium 10 Units/ML 5 ML Syringe FLUSH PRN (10:00)
[2020-05-22 10:23] LABS: PCO2 ARTERIAL,POC 33 mmHg (35-48); PH ARTERIAL,POC 7.4 pH (7.35-7.45); PO2 ARTERIAL,POC 61 mmHg (83-108)
[2020-05-22] MEDS: Diltiazem 25 MG/5 ML SDV IVPUSH SCH ×2 (10:30→14:32)
[2020-05-22] MEDS ORDERED: Sodium Chloride 0.9% 250 ML IV SCH (10:30)
[2020-05-22] MEDS: Sodium Chloride 0.9% 10 ML Syringe FLUSH PRN ×3 (10:30→11:50)
[2020-05-22] MEDS ORDERED: ceFAZolin 2 GM in Premix Bag 1 BAG IV SCH (11:00)
[2020-05-22] MEDS ORDERED: Heparin Sodium 10 Units/ML 5 ML Syringe FLUSH SCH (11:15)
[2020-05-22] MEDS: oxyCODONE 5 MG Tab PO PRN ×2 (11:29→17:48)
[2020-05-22] MEDS ORDERED: Metoclopramide 5 MG Tab PO SCH (11:30)
[2020-05-22] MEDS ORDERED: Diatrizoate Meglumine/Diatrizoate Sodium 37% 30 ML Bottle PO ONE (11:37)
[2020-05-22] MEDS ORDERED: Sodium Chloride 0.9% 1,000 ML IV SCH ×2 (14:15→17:00)
--- NOTE | 2020-05-22 15:51 | CT ---
INDICATION: Pronounced drainage from wound post surgical left upper quadrant - epigastrium. There is a history of appendectomy, bariatric surgery, cholecystectomy, hysterectomy, salpingo-oophorectomy. CT ABDOMEN AND PELVIS WITH ORAL CONTRAST ONLY: Spiral 2.5 mm axial sections were obtained through the abdomen and pelvis with oral contrast only 05/22/20 and compared with - sagittal and coronal reconstructions were obtained. Total exam DLP was 806.05 mGy-cm. Patchy areas of infiltration and possibly atelectasis are noted in the middle lobe with somewhat heavy markings at the right lower lobe. Findings may represent fibrosis and/or areas of patchy pneumonia. At the left lung base, there is consolidation and/or atelectasis with a moderately large pleural effusion, findings may be on the basis of pneumonia and pleuritis. The heart appears enlarged. Also noted is a moderate-sized pericardia effusion. There is an approximately 6 cm cyst again noted at the upper middle pole lateral cortex of the right kidney which is splaying the cortex down to the level of the medullary portion of the kidney. No definite solid mass of the kidneys was identified. There appears to be some mild renal cortical scarring of the right kidney and minimally of the left. The gallbladder is absent compared with history of its removal. The liver appears to be normal. There is a postsurgical site in the midline of ventral abdominal wall with air extending from the skin surface to the peritoneum. The possibility of an infectious process in that area certainly is a consideration - there is increased density in the subcutaneous fat in that area surrounding the air- filled space. This is a new finding compared with the previous study. There is some fluid component to this area which extends caudal to the area of air or gas. Some additional gas is noted in the area of the soft tissues at the anterior aspect of the peritoneum. These findings are all compatible with abscess formation possibly with gas-forming organism infection. The fluid component portion of this probable abscess is 35 mm craniocaudad by approximately 18 mm craniocaudad. The area of gas-containing abnormality measured 27 mm craniocaudad and extends anteroposteriorly approximately 4 cm. An overlying bandage is noted in that area. T12 compression fracture is unchanged from the previous study. Degenerative disk disease is suggested at L3-4, L4-5, and L5-S1 with hypertrophic changes mostly at L3-4 and L5-S1. The appendix is absent compatible with history of its removal. No evidence of definite free intraperitoneal air or bowel obstruction was identified. There is noted fat stranding in the epigastric intraperitoneal fat which may be on the basis of peritonitis, but should be correlated clinically as it may simply be on the basis of postsurgical change. No definite retroperitoneal mass was identified. No definite abdominal or pelvic ascites is seen. The adrenal glands appeared unchanged from the previous study and probably normal. The spleen is absent compatible with history of its removal. The uterus is absent compatible with history of its removal. The urinary bladder was unremarkable. Calcifications are noted in the abdominal aorta and iliac arteries. Minimal diverticulosis at the proximal sigmoid colon is noted without evidence of diverticulitis. IMPRESSION: 1. Findings strongly suggestive of abscess formation in the ventral abdominal wall possibly with gas-forming organism infection as noted above. 2. Cannot exclude peritonitis with fat stranding in the epigastrium adjacent to the superficial and deep abscess formation. 3. Post cholecystectomy, appendectomy, bariatric surgery, splenectomy, and hysterectomy/salpingo-oophorectomy. 4. 6 cm fairly stable probable simple cyst of the right kidney splaying the renal parenchyma. 5. Degenerative changes and disk disease lumbosacral spine. 6. Cardiomegaly with pericardial effusion. 7. ASD. 8. Atelectasis and/or consolidating pneumonia of the left lower lobe and portion of the lingula with moderately large pleural effusion on the left. Also noted were parenchymal changes in the middle lobe and right lower lobe which could be fibrotic in nature or due to patchy bronchopneumonia or combination thereof. MTDD
[2020-05-22 16:11] VITALS: BP 87/53; PULSE 134
--- NOTE | 2020-05-22 17:52 | HP ---
ADMISSION DATE: 05/22/2020 REASON FOR ADMISSION: Transition from [facility] due to rapid atrial fibrillation. HISTORY OF PRESENT ILLNESS: Maya Peres is a 74-year-old female in transfer from swing bed to acute care. She gives a complicated history over the last month's duration. She underwent esophagojejunostomy with gastric pouch excision and splenectomy at [facility] on the April 28, 2020. She had moderate hospital stay and was admitted to [facility] for 1 week of TPN hyperalimentation. During her hospital stay, she was found to have a left-sided pneumonia, treated accordingly; urinary tract infection E coli, treated accordingly; developed an abscess in the upper part of her incision, requiring incision and drainage and packing the culture by Dr. Lugo. Please see the hospital stay. The evening prior to admission, she went into atrial fibrillation, rate uncontrolled. onset, no history of atrial fibrillation. She was given 1 dose of Cardizem and some IV fluids overnight. When seen the morning of admission, transition to acute care appropriate. MEDICATIONS: Please see med recon list. ALLERGIES: See attached allergies. PAST MEDICAL HISTORY: Significant for recent major abdominal surgery. She has had a host of upper endoscopies over the last couple of years' duration. She had left shoulder arthroplasty 2019, right shoulder arthroplasty 2017, remote appendectomy, remote cholecystectomy, bilateral cataract surgery, left femur fracture, gastric bypass x2 occasions, right hip surgery, hysterectomy, tubal ligation, and capsulotomy. Chronic illnesses include gastroesophageal reflux, complicated in nature. No other major operative procedures, hospitalizations, unusual childhood diseases, major injuries, or fractures. SOCIAL HISTORY: Lives at [facility]. No smoking. No vaping. No chewing. No alcohol. REVIEW OF SYSTEMS: Please see HPI. PHYSICAL EXAMINATION: VITAL SIGNS: Stable and noted. Heart rate 120s to 140s. Blood pressure 110/70, respirations 24. GENERAL: Fragile-appearing elderly female. HEENT: Unremarkable. NECK: Benign. Thyroid is small. CHEST: Decreased breath sounds, but clear in all lung petersen. HEART: Irregular irregular heart rate at 120 to 140. ABDOMEN: Incision noted. Bulky dressing, upper incision. Good bowel sounds. Tympanitic. AND RECTAL: Deferred. EXTREMITIES: Well perfused. DIAGNOSIS: Rate uncontrolled, atrial fibrillation. SECONDARY DIAGNOSIS: Please see history and physical. PLAN: We will transfer to acute care, oral metoprolol, oral Eliquis, intravenous fluids, and attempts for rate control with intravenous Cardizem. Expectation for improvement and ongoing care. /[id number] RYAN/ABA
[2020-05-23] MEDS ORDERED: Pantoprazole 40 MG Tab.CR PO SCH (06:00)
--- NOTE | 2020-05-23 07:52 | DISCH ---
DISCHARGE DATE: 05/22/2020 Maya Peres is a 74-year-old female, who had been admitted from [facility] to acute care for rapid atrial fibrillation. Please see history and physical. Throughout the day, things did not improve. She was given 2 doses of intravenous Cardizem, 50 mg of oral metoprolol, 5 mg of Eliquis, and IV fluids. Rate control was intermittent but problematic. It appears by observation she is going into some heart failure. Contacted Dr. Shipley at [facility], direct admission to [facility] for rate control. Valadez catheter was placed, 500 mL of fluids were given in transfer. Appropriate indications for transfer for acute care management and consideration for cardioversion, stabilization of critically ill patient. /[id number] RYAN/ABA
[2020-05-23] MEDS ORDERED: Sertraline 100 MG Tab PO SCH (09:00)
[2020-05-23] MEDS ORDERED: Polyethylene Glycol 3350 Powder 17 GM Packet PO SCH (09:00)
[2020-06-08] MEDS ORDERED: Cyanocobalamin (Vitamin B12) 1,000 MCG/ML SDV SUBCUT SCH (09:00)
== END 2020-05-22 18:08 | DRG 309 ==
LOC: FB.MS 09:25
PROVIDERS: ADMIT Family Medicine; ATTEND Family Medicine
DX: I48.91 Unspecified atrial fibrillation (principal); T81.49XA Infection following a procedure, other surgical site, initial encounter; K21.9 Gastro-esophageal reflux disease without esophagitis; Z90.49 Acquired absence of other specified parts of digestive tract; Z90.710 Acquired absence of both cervix and uterus; Z79.899 Other long term (current) drug therapy
CPT/HCPCS: 74176; 82803; 93005; A9270-GY; J0456; J0690; J1642; J3490; J7030; J7050; Q9963

== ENCOUNTER 2020-07-07 18:37 | Emergency (ER) | payer MEDICARE ==
[2020-07-07] MEDS ORDERED: traMADol 50 MG Tab PO ONE (18:38)
--- NOTE | 2020-07-07 19:06 | EDM.PDOC ---
ED HPI GENERAL MEDICAL PROBLEM - General Time Seen by Provider: 07/07/20 19:03 Source of Information: Reports: Patient History Limitations: Reports: No Limitations - History of Present Illness INITIAL COMMENTS - FREE TEXT/NARRATIVE: 74-year-old female who presents to emergency department complaining of worsening upper abdominal pain. She has a long-standing history of chronic abdominal pain and has had multiple abdominal surgeries with the last surgery being a resection of most of her stomach with esophagogastroduodenostomy and splenectomy performed at the [facility] following this she did have dominant wall abscess which required needs and was complicated by congestive heart failure with atrial fibrillation with RVR and required transport to the [facility] in [place]. She has since been and have facility and since discharge has still not really been able to eat anything as of yet but has been able to drink liquids including protein solutions like ensure. She has been having ongoing abdominal pain but it seems to be worse the past few days and she is not getting any relief from the tramadol that she has. She only has to tramadol left and her pain is now at an 8/10. Her up and burning type pain was stabbing. She still has an open wound at the upper part of her previous abscess seizure and and it does have some mild drainage but the area is quite small and there is no associated redness or increased warmth or swelling. She has had normal bowel movements. She has had no dysuria or hematuria. No fevers or chills. There are no other associated signs or symptoms. There are no other modifying factors. 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: Other Medication(s) (Tramadol) Mid-abdomen Pain Score (Numeric/FACES): 8 - Related Data Allergies Allergy/AdvReac Type Severity Reaction Status Date / Time ciprofloxacin [From Cipro] Allergy Itching Verified 07/07/20 19:13 erythromycin base Allergy Hives Verified 07/07/20 19:13 [Erythromycin Base] ibuprofen Allergy Other Verified 07/07/20 19:13 Influenza Virus Vaccines Allergy Nausea and Verified 07/07/20 19:13 Vomiting ketorolac [From Toradol] Allergy Nausea and Verified 07/07/20 19:13 Vomiting NSAIDS (Non-Steroidal Allergy Other Verified 07/07/20 19:13 Anti-Inflamma Penicillins Allergy Hives Verified 07/07/20 19:13 Sulfa (Sulfonamide Allergy Hives Verified 07/07/20 19:13 Antibiotics) Tetracyclines Allergy Hives Verified 07/07/20 19:13 Home Meds: Home Meds Sertraline [Zoloft] 100 mg PO DAILY 02/03/20 [History] Acetaminophen [Tylenol Extra Strength] 500 mg PO Q6H PRN 07/07/20 [History] Apixaban [Eliquis] 5 mg BID 07/07/20 [History] Fluconazole [Diflucan] 200 mg PO DAILY 07/07/20 [History] Lansoprazole 15 mg DAILY 07/07/20 [History] Melatonin 3 mg PO BEDTIME 07/07/20 [History] traMADol [Ultram] 100 mg PO Q6H PRN 07/07/20 [History] Past Medical History HEENT History: Reports: Cataract, Hard of Hearing, Other (See Below) Other HEENT History: Dry eyes. Left cochlear implant. Wears hearing aid. Cardiovascular History: Reports: Arrhythmia (Atrial fibrillation on Eliquis), Heart Failure, Heart Murmur, Hypertension, NE, Other (See Below) Other Cardiovascular History: Aortic stenosis. Ascending aorta dilation. Diastolic dysfunction. Peripheral vascular disease. Respiratory History: Reports: Pneumonia, Recurrent, SOB, Other (See Below) Other Respiratory History: Pulmonary nodule. Gastrointestinal History: Reports: GERD, Other (See Below) Other Gastrointestinal History: History of abdominal fistula. hx of bleeding ulcer Genitourinary History: Reports: UTI, Recurrent, Other (See Below) Other Genitourinary History: Cyst on right kidney. 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 History of fracture right hip, left femur, left wrist. Neurological History: Reports: Neuropathy, Peripheral Other Neuro History: Bilateral peripheral neuropathy. Psychiatric History: Reports: Anxiety, Depression Other Psychiatric History: Insomnia. Endocrine/Metabolic History: Reports: Obesity/BMI 30+, Osteoporosis Other Endocrine/Metabolic History: Impaired glucose tolerance. Hematologic History: Reports: Anemia, Anticoagulation Therapy (On Eliquis.), Blood Transfusion(s) Dermatologic History: Reports: Cellulitis - Infectious Disease History Infectious Disease History: Reports: Measles, Mumps Other Infectious Disease History: Staph infection right ear, unsure if MRSA. - Past Surgical History HEENT Surgical History: Reports: Cataract Surgery, Oral Surgery Other HEENT Surgeries/Procedures: bilat cataract surgery, GI Surgical History: Reports: Appendectomy, Bariatric Procedure, Cholecystectomy, Colonoscopy, EGD, Other (See Below) Other GI Surgeries/Procedures: abd fistula repaired, 09/04/2019. splenectomy . Gastric bypass revision Female Surgical History: Reports: Hysterectomy, Salpingo-Oophorectomy, Tubal Ligation Musculoskeletal Surgical History: Reports: Carpal Tunnel, Hip Replacement, ORIF, Shoulder Surgery Other Musculoskeletal Surgeries/Procedures:: bilat SHOULDER ARTHROPLASTY, ORIF to L wrist, pins removed, Social & Family History - Family History HEENT: Reports: Glaucoma, Macular Degeneration Cardiac: Reports: Hypertension Endocrine/Metabolic: Reports: Diabetes Mellitus, Type 3c Oncologic: Reports: Brain, Colon, Lung Other Oncologic Family History: Throat. Liver. Stomach. - Tobacco Use Tobacco Use Status *Q: Unknown Ever Used Tobacco (Nonsmoker.) - Caffeine Use Caffeine Use: Reports: None Other Caffeine Use: states that she takes powerade. - Alcohol Use Alcohol Use History: No - Living Situation & Occupation Living situation: Reports: Alone ED ROS GENERAL - Review of Systems Review Of Systems: See Below Constitutional: Reports: No Symptoms HEENT: Reports: No Symptoms Respiratory: Reports: No Symptoms Cardiovascular: Reports: No Symptoms GI/Abdominal: Reports: Abdominal Pain. Denies: Diarrhea, Vomiting : Reports: No Symptoms Musculoskeletal: Reports: No Symptoms Skin: Reports: No Symptoms Neurological: Reports: No Symptoms Psychiatric: Reports: No Symptoms Hematologic/Lymphatic: Reports: Easy Bruising (Chronically anticoagulated on Eliquis.) Immunologic: Reports: No Symptoms ED EXAM, GENERAL - Physical Exam Exam: See Below Exam Limited By: No Limitations General Appearance: Alert, Anxious, Moderate Distress Eye Exam: Bilateral Eye: EOMI, Normal Inspection Ears: Normal External Exam, Hearing Loss (Hard of hearing.) Ear Exam: Bilateral Ear: Auricle Normal Nose: Normal Inspection, Normal Mucosa, No Blood Throat/Mouth: Normal Inspection, Normal Oropharynx, Normal Voice, No Airway Compromise, Other (Edentulous.) Head: Atraumatic, Normocephalic Neck: Normal Inspection, Supple, Non-Tender, Full Range of Motion Respiratory/Chest: No Respiratory Distress, Lungs Clear, Normal Breath Sounds, No Accessory Muscle Use, Chest Non-Tender Cardiovascular: Normal Peripheral Pulses, Systolic Murmur, Irregularly Irregular Peripheral Pulses: 2+: Radial (L), Radial (R) GI/Abdominal: Normal Bowel Sounds, Soft, No Mass, Tender (Tender in the upper abdomen.), Other (Open wound in the upper abdomen but there is good granulation tissue and no significant drainage.) Back Exam: Normal Inspection Extremities: Normal Inspection, Normal Range of Motion, Non-Tender, No Pedal Edema, Normal Capillary Refill Neurological: Alert, Oriented, CN II-XII Intact (She is hard of hearing), Normal Cognition, No Motor/Sensory Deficits Psychiatric: Normal Affect Skin Exam: Warm, Dry, Normal Color, No Rash Course - Vital Signs Last Recorded V/S: Last Vital Signs Temp 36.5 C 07/07/20 19:00 Pulse 84 07/07/20 21:38 Resp 18 07/07/20 21:38 BP 101/72 07/07/20 21:38 Pulse Ox 97 07/07/20 21:38 - Orders/Labs/Meds Orders: Active Orders 24 hr Category Date Time Status Abdomen 2V AP Flat Upright [CR] Stat Exams 07/07/20 19:23 Taken Labs: Laboratory Tests 07/07/20 07/07/20 07/07/20 Range/Units 20:05 20:05 20:05 WBC 7.6 (3.0-10.3) x10-3/uL RBC 4.33 (3.60-5.20) x10(6)uL Hgb 12.2 D (11.4-15.5) g/dL Hct 38.0 D (34.2-48.2) % MCV 87.7 (76.7-100.5) fL MCH 28.1 (23.9-33.9) pg MCHC 32.1 (31.9-34.8) g/dL RDW 17.9 H (12.3-16.5) % Plt Count 413 (151-488) x10(3)uL MPV 9.7 (7.1-12.4) fL Add Manual Diff Yes Neutrophils % (Manual) 71 (46-82) % Band Neutrophils % 3 (0-6) % Lymphocytes % (Manual) 20 (13-37) % Monocytes % (Manual) 6 (4-12) % Sodium 137 (135-145) mmol/L Potassium 3.8 (3.5-5.3) mmol/L Chloride 100 (100-110) mmol/L Carbon Dioxide 26 (21-32) mmol/L BUN 16 (7-18) mg/dL Creatinine 0.6 (0.55-1.02) mg/dL Est Cr Clr Drug Dosing 59.09 mL/min Estimated GFR (MDRD) > 60 (>60) BUN/Creatinine Ratio 26.7 H (9-20) Glucose 105 (80-116) mg/dL Calcium 9.8 (8.6-10.2) mg/dL Magnesium 1.7 L (1.8-2.5) mg/dL Total Bilirubin 0.5 (0.1-1.3) mg/dL AST 88 H D (5-25) IU/L ALT 102 H (12-36) U/L Alkaline Phosphatase 109 (56-112) IU/L C-Reactive Protein 6.7 H* (0.5-0.9) mg/dL Total Protein 8.6 H (6.0-8.0) g/dL Albumin 3.0 L (3.2-4.6) g/dL Globulin 5.6 g/dL Albumin/Globulin Ratio 0.5 Meds: Medications Discontinued Medications Generic Name Dose Route Start Last Admin Trade Name Freq PRN Reason Stop Dose Admin Hydrocodone Bitart/Acetaminophen 1 tab 07/07/20 19:25 07/07/20 21:05 Acetaminophen/Hydrocodone 325-5 Mg Tab PO 07/07/20 19:26 1 tab ONETIME ONE Administration - Radiology Interpretation Free Text/Narrative:: A flat and upright abdominal x-ray shows a nonspecific gas pattern. - Re-Assessments/Exams Free Text/Narrative Re-Assessment/Exam: 07/07/20 21:05: The patient's white blood cell kill was normal. Her H&H was stable. CRP was slightly elevated at 6.7. Her electrolytes were normal. She continues to appear nontoxic. She reports that the pain is starting to decrease. I don't see any evidence of a significant problem at this time. There is no evidence of abscess. There is no evidence of an obstruction. She does have ongoing chronic pain issues related to her abdominal problems. I have told her to keep her follow-up appointment with Dr. Johnson on 07/09/2020. Precautions and reasons for return to the emergency department were discussed with the patient while she was in the emergency department there were detailed in the patient's discharge instructions. She is comfortable with the plan for discharge. Departure - Departure Time of Disposition: 21:25 Disposition: Home, Self-Care 01 Condition: Good Clinical Impression: Chronic upper abdominal pain - Discharge Information Instructions: Chronic Pain, Adult Referrals: Mir Johnson MD [Primary Care Provider] - Forms: ED Department Discharge Additional Instructions: Your blood tests showed no concerning findings. The x-rays of your abdomen showed no evidence of infection. Her exam does not show any evidence of an abscess or other serious problem at this point. The abdominal pain appears to be related to your chronic abdominal pain. You need to keep your follow-up appointment with Dr. Johnson on 07/09/2020. Back to the emergency department for fever, severe weakness, any signs of infection around the open wound or any other concerning signs or symptoms. Sepsis Event Note (ED) - Focused Exam Vital Signs: Vital Signs Temp Pulse Resp BP Pulse Ox 07/07/20 21:38 84 18 101/72 97 07/07/20 19:00 36.5 C 82 20 108/49 L 98 - My Orders Last 24 Hours: My Active Orders 07/07/20 19:23 Abdomen 2V AP Flat Upright [CR] Stat - Assessment/Plan Last 24 Hours: My Active Orders 07/07/20 19:23 Abdomen 2V AP Flat Upright [CR] Stat
[2020-07-07] MEDS ORDERED: Acetaminophen/HYDROcodone 325-5 MG Tab PO ONE (19:25)
[2020-07-07 22:05] VITALS: BP 101/72; PULSE 84
--- NOTE | 2020-07-08 09:56 | CR ---
INDICATION: Abdominal pain. ABDOMEN TWO VIEW: Four images of the abdomen in supine and upright projections were obtained 07/07/20 and compared with 07/17/19. The pattern of gas and feces is nonspecific without evidence of free air or obstruction. There are some calcifications in the abdominal aorta and a probable calcified fibroid of small size in the mid pelvis. Evidence of previous surgery is noted in the right midabdomen and upper abdomen, both to the right of midline and in the left upper quadrant . 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 No organomegaly or mass lesions were identified. Calcified injection sites are noted in the buttocks bilaterally. IMPRESSION: Nonacute postsurgical abdomen. MTDD
== END 2020-07-07 21:43 | disposition home or self-care (01) ==
LOC: FB.ED 18:37
DX: R10.10 Upper abdominal pain, unspecified (principal); G89.29 Other chronic pain; I48.91 Unspecified atrial fibrillation; I11.0 Hypertensive heart disease with heart failure; I50.9 Heart failure, unspecified; I25.2 Old myocardial infarction; Z88.1 Allergy status to other antibiotic agents; Z88.6 Allergy status to analgesic agent; Z88.7 Allergy status to serum and vaccine; Z88.0 Allergy status to penicillin; Z88.2 Allergy status to sulfonamides; Z79.01 Long term (current) use of anticoagulants; Z79.899 Other long term (current) drug therapy
CPT/HCPCS: 36415; 74019; 80053; 83735; 85025; 86140; 99284; A9270-GY

== ENCOUNTER 2020-07-13 17:29 | Inpatient (IN) | payer MEDICARE ==
--- NOTE | 2020-07-13 18:02 | EDM.PDOC ---
ED HPI GENERAL MEDICAL PROBLEM - General Chief Complaint: Abdominal Pain Stated Complaint: ABD PAIN Time Seen by Provider: 07/13/20 17:40 Source of Information: Reports: Patient History Limitations: Reports: No Limitations - History of Present Illness INITIAL COMMENTS - FREE TEXT/NARRATIVE: c/o abd pain pt has had abd pain for several months, perhaps a little worse today, nons pecific, upper abd in midline as before pt in ED 6d ago with same c/o and had neg KUB 2v, nice improvement alb 2.0 to 3.0, drinks Ensure, told to drink 6 per day, which she says is more than she can drink, says the Ensure "runs right through mg", had 4 small loose BMs today meds: apixaban 5 mg bid, fluconazole, lansoprazole 15 mg/d, melatonin 3 mg qhs, sertaline 100 mg/d, tramadol 100 mg q6h prn went to [facility] 05-04-20 and had "3/4ths of my stomach removed" d/t hernia and fistula, was here and then swing bed no f/c/d, no n/v, taking her meds as rx'ed mid/lower abd Pain Score (Numeric/FACES): 8 - Related Data Allergies Allergy/AdvReac Type Severity Reaction Status Date / Time ciprofloxacin [From Cipro] Allergy Itching Verified 07/07/20 19:13 erythromycin base Allergy Hives Verified 07/07/20 19:13 [Erythromycin Base] ibuprofen Allergy Other Verified 07/07/20 19:13 Influenza Virus Vaccines Allergy Nausea and Verified 07/07/20 19:13 Vomiting ketorolac [From Toradol] Allergy Nausea and Verified 07/07/20 19:13 Vomiting NSAIDS (Non-Steroidal Allergy Other Verified 07/07/20 19:13 Anti-Inflamma Penicillins Allergy Hives Verified 07/07/20 19:13 Sulfa (Sulfonamide Allergy Hives Verified 07/07/20 19:13 Antibiotics) Tetracyclines Allergy Hives Verified 07/07/20 19:13 Home Meds: Home Meds Sertraline [Zoloft] 100 mg PO DAILY 02/03/20 [History] Acetaminophen [Tylenol Extra Strength] 500 mg PO Q6H PRN 07/07/20 [History] Apixaban [Eliquis] 5 mg BID 07/07/20 [History] Fluconazole [Diflucan] 200 mg PO DAILY 07/07/20 [History] Lansoprazole 15 mg DAILY 07/07/20 [History] Melatonin 3 mg PO BEDTIME 07/07/20 [History] traMADol [Ultram] 100 mg PO Q6H PRN 07/07/20 [History] Past Medical History HEENT History: Reports: Cataract, Hard of Hearing, Other (See Below) Other HEENT History: Dry eyes. Left cochlear implant. Wears hearing aid. Cardiovascular History: Reports: Arrhythmia (Atrial fibrillation on Eliquis), Heart Failure, Heart Murmur, Hypertension, [place], Other (See Below) Other Cardiovascular History: Aortic stenosis. Ascending aorta dilation. Diastolic dysfunction. Peripheral vascular disease. Respiratory History: Reports: PE, Pneumonia, Recurrent, SOB, Other (See Below) Other Respiratory History: Pulmonary nodule. Gastrointestinal History: Reports: GERD, PUD, Other (See Below) Other Gastrointestinal History: History of abdominal fistula. hx of bleeding ulcer, hx stomach abscess, hx exp lap Genitourinary History: Reports: UTI, Recurrent, Other (See Below) Other Genitourinary History: Cyst on right kidney. ELECTRICAL PROSPECTOR History: Reports: Other ELECTRICAL PROSPECTOR History: Musculoskeletal History: Reports: Arthritis, Fracture, Osteoporosis Other Musculoskeletal History: Lumbago. History of fracture right hip, left femur, left wrist. Neurological History: Reports: Neuropathy, Peripheral Other Neuro History: Bilateral peripheral neuropathy. Psychiatric History: Reports: Anxiety, Depression Other Psychiatric History: Insomnia. Endocrine/Metabolic History: Reports: Obesity/BMI 30+, Osteoporosis Other Endocrine/Metabolic History: Impaired glucose tolerance. Hematologic History: Reports: Anemia, Anticoagulation Therapy (On Eliquis.), Blood Transfusion(s) Dermatologic History: Reports: Cellulitis - Infectious Disease History Infectious Disease History: Reports: Measles, Mumps Other Infectious Disease History: Staph infection right ear, unsure if MRSA. - Past Surgical History Head Surgeries/Procedures: Reports: None HEENT Surgical History: Reports: Cataract Surgery, Oral Surgery Other HEENT Surgeries/Procedures: bilat cataract surgery, Cardiovascular Surgical History: Reports: None Respiratory Surgical History: Reports: None GI Surgical History: Reports: Appendectomy, Bariatric Procedure, Cholecystectomy, Colonoscopy, EGD, Other (See Below) Other GI Surgeries/Procedures: abd fistula repaired, 09/04/2019. splenectomy . Gastric bypass revision Female Surgical History: Reports: Hysterectomy, Salpingo-Oophorectomy, Tubal Ligation Endocrine Surgical History: Reports: None Neurological Surgical History: Reports: None Musculoskeletal Surgical History: Reports: Carpal Tunnel, Hip Replacement, ORIF, Shoulder Surgery Other Musculoskeletal Surgeries/Procedures:: bilat SHOULDER ARTHROPLASTY, ORIF to L wrist, pins removed, Social & Family History - Family History Family Medical History: No Pertinent Family History HEENT: Reports: Glaucoma, Macular Degeneration Cardiac: Reports: Hypertension Endocrine/Metabolic: Reports: Diabetes Mellitus, Type 3c Oncologic: Reports: Brain, Colon, Lung Other Oncologic Family History: Throat. Liver. Stomach. - Caffeine Use Caffeine Use: Reports: None Other Caffeine Use: states that she takes powerade. - Living Situation & Occupation Living situation: Reports: Alone ED ROS GENERAL - Review of Systems Review Of Systems: See Below Constitutional: Reports: No Symptoms HEENT: Reports: No Symptoms Respiratory: Reports: No Symptoms Cardiovascular: Reports: No Symptoms Endocrine: Reports: No Symptoms GI/Abdominal: Reports: Abdominal Pain, Diarrhea. Denies: Nausea, Vomiting : Reports: No Symptoms Musculoskeletal: Reports: No Symptoms Skin: Reports: No Symptoms Neurological: Reports: No Symptoms Psychiatric: Reports: No Symptoms Hematologic/Lymphatic: Reports: No Symptoms Immunologic: Reports: No Symptoms ED EXAM, GI/ABD - Physical Exam Exam: See Below Exam Limited By: No Limitations General Appearance: Alert, WD/WN, No Apparent Distress, Other (in w/c, alert, pleasant, nonill, moves easily) Ears: Hearing Grossly Normal Nose: Normal Inspection Head: Atraumatic, Normocephalic Neck: Normal Inspection, Supple, Non-Tender, Full Range of Motion. No: Lymphadenopathy (L) Respiratory/Chest: No Respiratory Distress, Lungs Clear, Normal Breath Sounds Cardiovascular: No Edema, Other (HR 70 per RN, HR 140-150 on my exam, no heave, no S3/S4, 2/6 YELENA at LSB, regular, occasional pause) GI/Abdominal Exam: Soft, Non-Tender, No Organomegaly, No Distention Back Exam: Normal Inspection, Full Range of Motion Extremities: Normal Inspection, Normal Range of Motion, Non-Tender, No Pedal Edema Neurological: Alert, Oriented, CN II-XII Intact, Normal Cognition, Normal Reflexes, No Motor/Sensory Deficits Psychiatric: Normal Affect, Normal Mood Skin Exam: Warm, Dry, Intact, Normal Color, No Rash Lymphatic: No Adenopathy Course - Vital Signs Last Recorded V/S: Last Vital Signs Temp 36.6 C 07/13/20 17:29 Pulse 148 H 07/13/20 20:57 Resp 18 07/13/20 17:29 BP 117/66 07/13/20 20:57 Pulse Ox 100 07/13/20 17:29 - Orders/Labs/Meds Orders: Active Orders 24 hr Category Date Time Status Admission Status [Patient Status] [ADT] Routine ADT 07/13/20 20:59 Active EKG Documentation Completion [RC] ASDIRECTED Care 07/13/20 17:55 Active D5 1/2 NS w/ 20 mEq/L KCl 1,000 ml Med 07/13/20 20:30 Active IV ASDIRECTED EKG 12 Lead [EK] Routine Ther 07/13/20 17:54 Ordered Medication Orders Potassium Chloride/Dextrose/Sod Cl (D5 1/2 Ns W/ 20 Meq/L Kcl) 1,000 mls @ 75 mls/hr IV ASDIRECTED ED Last Admin: 07/13/20 20:33 Dose: 75 mls/hr Documented by: MINH Labs: Laboratory Tests 07/13/20 07/13/20 07/13/20 Range/Units 18:50 18:50 18:50 WBC 6.1 (3.0-10.3) x10-3/uL RBC 4.83 (3.60-5.20) x10(6)uL Hgb 13.4 (11.4-15.5) g/dL Hct 42.3 (34.2-48.2) % MCV 87.5 (76.7-100.5) fL MCH 27.8 (23.9-33.9) pg MCHC 31.7 L (31.9-34.8) g/dL RDW 17.4 H (12.3-16.5) % Plt Count 239 (151-488) x10(3)uL MPV 9.1 (7.1-12.4) fL Add Manual Diff Yes Neutrophils % (Manual) 60 (46-82) % Band Neutrophils % 2 (0-6) % Lymphocytes % (Manual) 30 (13-37) % Monocytes % (Manual) 8 (4-12) % Sodium 137 (135-145) mmol/L Potassium 4.3 (3.5-5.3) mmol/L Chloride 98 L (100-110) mmol/L Carbon Dioxide 23 (21-32) mmol/L BUN 13 (7-18) mg/dL Creatinine 0.8 (0.55-1.02) mg/dL Est Cr Clr Drug Dosing TNP Estimated GFR (MDRD) > 60 (>60) BUN/Creatinine Ratio 16.3 (9-20) Glucose 97 (80-116) mg/dL Calcium 10.1 (8.6-10.2) mg/dL Magnesium (1.8-2.5) mg/dL Total Bilirubin 0.5 (0.1-1.3) mg/dL AST 42 H D (5-25) IU/L ALT 51 H D (12-36) U/L Alkaline Phosphatase 82 (56-112) IU/L Troponin I 15.4 (4.0-60.3) pg/mL C-Reactive Protein 1.8 H (0.5-0.9) mg/dL Total Protein 7.5 (6.0-8.0) g/dL Albumin 3.0 L (3.2-4.6) g/dL Globulin 4.5 g/dL Albumin/Globulin Ratio 0.7 Lipase (73-393) U/L SARS-CoV-2 RNA (HARRIET) (NEGATIVE) 07/13/20 07/13/20 07/13/20 Range/Units 18:50 18:50 19:45 WBC (3.0-10.3) x10-3/uL RBC (3.60-5.20) x10(6)uL Hgb (11.4-15.5) g/dL Hct (34.2-48.2) % MCV (76.7-100.5) fL MCH (23.9-33.9) pg MCHC (31.9-34.8) g/dL RDW (12.3-16.5) % Plt Count (151-488) x10(3)uL MPV (7.1-12.4) fL Add Manual Diff Neutrophils % (Manual) (46-82) % Band Neutrophils % (0-6) % Lymphocytes % (Manual) (13-37) % Monocytes % (Manual) (4-12) % Sodium (135-145) mmol/L Potassium (3.5-5.3) mmol/L Chloride (100-110) mmol/L Carbon Dioxide (21-32) mmol/L BUN (7-18) mg/dL Creatinine (0.55-1.02) mg/dL Est Cr Clr Drug Dosing Estimated GFR (MDRD) (>60) BUN/Creatinine Ratio (9-20) Glucose (80-116) mg/dL Calcium (8.6-10.2) mg/dL Magnesium 1.8 (1.8-2.5) mg/dL Total Bilirubin (0.1-1.3) mg/dL AST (5-25) IU/L ALT (12-36) U/L Alkaline Phosphatase (56-112) IU/L Troponin I (4.0-60.3) pg/mL C-Reactive Protein (0.5-0.9) mg/dL Total Protein (6.0-8.0) g/dL Albumin (3.2-4.6) g/dL Globulin g/dL Albumin/Globulin Ratio Lipase 14 L (73-393) U/L SARS-CoV-2 RNA (HARRIET) Negative (NEGATIVE) Meds: Medications Generic Name Dose Route Start Last Admin Trade Name Freq PRN Reason Stop Dose Admin Potassium Chloride/Dextrose/Sod Cl 1,000 mls @ 75 mls/hr 07/13/20 20:30 07/13/20 20:33 D5 1/2 Ns W/ 20 Meq/L Kcl IV 75 mls/hr ASDIRECTED ED Administration Discontinued Medications Generic Name Dose Route Start Last Admin Trade Name Freq PRN Reason Stop Dose Admin Ketorolac Tromethamine 15 mg 07/13/20 20:23 07/13/20 21:09 Ketorolac 30 Mg/Ml Sdv IVPUSH 07/13/20 20:24 15 mg ONETIME ONE Administration Metoprolol Tartrate 5 mg 07/13/20 20:19 07/13/20 20:57 Metoprolol Tartrate 5 Mg/5 Ml Sdv IVPUSH 07/13/20 20:20 5 mg ONETIME ONE Administration Tramadol HCl 100 mg 07/13/20 20:22 07/13/20 21:07 Tramadol 50 Mg Tab PO 07/13/20 20:23 100 mg ONETIME ONE Administration - Re-Assessments/Exams Free Text/Narrative Re-Assessment/Exam: 07/13/20 20:21 afib not listed on pt's dx, however pt was in afib with rate of 129 on last EKG on 05-22-20 echo 2y ago with EF 65%, mod LVH, mod , mod pul artery htn pt not on any rate controlling meds currently, review of home meds over past 6m shows no rate controlling meds will give metoprolol 5 mg IV with goal of possibly continuing with oral metoprolol in low dose as preferred agent in pt with known and HF and LVH BP has been variable, running a little lower now, will give 500 ml IVF bolus labs are excellent with nice decrease CRP to 1.8 in past 5d, CBC neg, renal function wnl pt with usual chronic pain c/o but not acute findings, will give her tramadol 100 mg 16h (which is her usual meds) as well as ketorolac 15 mg IV q6h pt reluctantly agrees to be admitted for 1-2 days for rate control and monitoring of her BP and HR 07/13/20 21:31 doing well, COVID is neg, will admit to observation bed, HR came down to 110 after 3 mg metoprolol IV, will give the final 2 mg and continue on metoprolol 2.5 mg IV prn q3h for HR > 110 Departure - Departure Time of Disposition: 21:33 Disposition: Refer to Observation Condition: Good Clinical Impression: Atrial fibrillation with rapid ventricular response, Chronic abdominal pain, Mild dehydration - Discharge Information *PRESCRIPTION DRUG MONITORING PROGRAM REVIEWED*: No *COPY OF PRESCRIPTION DRUG MONITORING REPORT IN PATIENT MANUEL: No Referrals: Mir Johnson MD [Primary Care Provider] - Forms: ED Department Discharge Sepsis Event Note (ED) - Evaluation Sepsis Screening Result: No Definite Risk - Focused Exam Vital Signs: Vital Signs Temp Pulse Pulse Resp BP BP Pulse Ox 07/13/20 20:57 148 H 117/66 07/13/20 17:29 36.6 C 70 18 121/97 H 100 - My Orders Last 24 Hours: My Active Orders 07/13/20 17:54 EKG 12 Lead [EK] Routine 07/13/20 17:55 EKG Documentation Completion [RC] ASDIRECTED 07/13/20 20:30 D5 1/2 NS w/ 20 mEq/L KCl 1,000 ml IV ASDIRECTED 07/13/20 20:59 Admission Status [Patient Status] [ADT] Routine - Assessment/Plan Last 24 Hours: My Active Orders 07/13/20 17:54 EKG 12 Lead [EK] Routine 07/13/20 17:55 EKG Documentation Completion [RC] ASDIRECTED 07/13/20 20:30 D5 1/2 NS w/ 20 mEq/L KCl 1,000 ml IV ASDIRECTED 07/13/20 20:59 Admission Status [Patient Status] [ADT] Routine
[2020-07-13] MEDS ORDERED: LORazepam 2 MG/ML SDV IVPUSH ONE (18:08)
[2020-07-13] MEDS ORDERED: Metoprolol Tartrate 5 MG/5 ML SDV IVPUSH ONE (20:19)
[2020-07-13] MEDS ORDERED: traMADol 50 MG Tab PO ONE (20:22)
[2020-07-13] MEDS ORDERED: Ketorolac 30 MG/ML SDV IVPUSH ONE (20:23)
[2020-07-13] MEDS ORDERED: D5 1/2 NS w/ 20 mEq/L KCl 1,000 ML IV SCH (20:30)
[2020-07-13] MEDS ORDERED: Acetaminophen 325 MG Tab PO PRN (21:46)
[2020-07-13] MEDS ORDERED: Metoprolol Tartrate 5 MG/5 ML SDV IVPUSH PRN (21:51)
[2020-07-13] MEDS ORDERED: Dextrose 5%-0.45% NaCl 1,000 ML IV SCH (22:00)
[2020-07-13] MEDS: Apixaban 5 MG Tab PO SCH (23:10)
[2020-07-14] MEDS: traMADol 50 MG Tab PO SCH ×3 (00:58→09:09)
[2020-07-14] MEDS ORDERED: Sertraline 100 MG Tab *PTOM PO SCH (09:00)
[2020-07-14] MEDS ORDERED: FLUCONAZOLE 10 MG/ML PO SCH (09:00)
[2020-07-14] MEDS: Apixaban 5 MG Tab PO SCH ×2 (09:10→20:54)
[2020-07-14] MEDS ORDERED: Diltiazem 25 MG/5 ML SDV IVPUSH ONE (09:18)
[2020-07-14] MEDS ORDERED: diphenhydrAMINE 50 MG/ML SDV IVPUSH ONE (09:45)
[2020-07-14] MEDS ORDERED: Acetaminophen 325 MG Tab PO PRN (10:00)
[2020-07-14] MEDS: Diltiazem IR 30 MG Tab PO SCH ×2 (13:25→17:24)
[2020-07-14] MEDS: Acetaminophen/HYDROcodone 325-5 MG Tab PO SCH ×3 (13:27→20:55)
--- NOTE | 2020-07-14 13:29 | PCM.HP.2 ---
H&P History of Present Illness - General Date of Service: 07/14/20 Admit Problem/Dx: Admission Diagnosis/Problem Admission Diagnosis/Problem Atrial fibrillation Source of Information: Patient, EMS Notes Reviewed, Old Records ([facility]) History Limitations: Reports: No Limitations - History of Present Illness Initial Comments - Free Text/Narative: Genevieve presented to ER yesterday for abdominal pain, diarrhea x 5 yesterday. She has lost 11 more pounds since discharge from swing bed at [facility] on 06/26. She was seen in ER 7 days ago, had negative KUB. Taking Tramadol 100 mg q6h for pain. Denies any nausea or vomiting. She is due to go back to [facility] to see her surgeon on July 24. She has been drinking Ensure & doing a soft diet since discharge. She had been at [facility] in Apr for sepsis, abscess/fistula after revision of her gastric bypass Feb/Mar, she was in Atrial fibrillation when admitted to [facility], was on amiodarone infusion, converted and discharged to swing bed with no antiar rhythmics/rate control medications. She was found to have pulmonary emboli during acute stay at [facility] was discharged on Eliquis. While she was being evaluated in ER, her rate went from 80s to 140-150s, was in atrial fibrillation. She denies any shortness of breath, lightheadedness or chest pain with it. No diaphoresis. She saw Dr Johnson, her PCP last Tuesday, also had low blood pressure 85/50s but was asymptomatic so nothing further was done. In ER, labs unremarkable. No signs of infection. Covid negative. Hypotensive, received bolus of IV fluids then D51/2NS at 125 ml/hr then reduced to 75 ml/hr. Given Metoprolol 5 mg IV was given 3 mg initially then 2 mg to make sure her blood pressure tolerated. Did not receive any doses Metoprolol 2.5 mg IV overnight. mid/lower abd Pain Score (Numeric/FACES): 7 - Related Data Allergies/Adverse Reactions: Allergies Allergy/AdvReac Type Severity Reaction Status Date / Time ciprofloxacin [From Cipro] Allergy Itching Verified 07/14/20 01:52 erythromycin base Allergy Hives Verified 07/14/20 01:52 [Erythromycin Base] ibuprofen Allergy Other Verified 07/14/20 01:52 Influenza Virus Vaccines Allergy Nausea and Verified 07/14/20 01:52 Vomiting ketorolac [From Toradol] Allergy Nausea and Verified 07/14/20 01:52 Vomiting NSAIDS (Non-Steroidal Allergy Other Verified 07/14/20 01:52 Anti-Inflamma Penicillins Allergy Hives Verified 07/14/20 01:52 Sulfa (Sulfonamide Allergy Hives Verified 07/14/20 01:52 Antibiotics) Tetracyclines Allergy Hives Verified 07/14/20 01:52 Home Medications: Home Meds Sertraline [Zoloft] 100 mg PO DAILY 02/03/20 [History] Apixaban [Eliquis] 5 mg BID 07/07/20 [History] Fluconazole [Diflucan] 200 mg PO DAILY 07/07/20 [History] Lansoprazole 15 mg DAILY 07/07/20 [History] Melatonin 3 mg PO BEDTIME 07/07/20 [History] traMADol [Ultram] 100 mg PO Q6H PRN 07/07/20 [History] Past Medical History HEENT History: Reports: Cataract, Hard of Hearing, Other (See Below) Other HEENT History: Dry eyes. Left cochlear implant. Wears hearing aid. Cardiovascular History: Reports: Afib (paroxysmal(Apr 2019), last echo Apr 2019 at [facility]), Arrhythmia, Heart Failure, Heart Murmur, Hypertension, MT, Other (See Below) Other Cardiovascular History: Aortic stenosis. Ascending aorta dilation. Diastolic dysfunction. Peripheral vascular disease. Respiratory History: Reports: PE, Pneumonia, Recurrent, SOB, Other (See Below) Other Respiratory History: Pulmonary nodule. Gastrointestinal History: Reports: GERD, PUD, Other (See Below) Other Gastrointestinal History: History of abdominal fistula. hx of bleeding ulcer, hx stomach abscess, hx exp lap Genitourinary History: Reports: UTI, Recurrent, Other (See Below) Other Genitourinary History: Cyst on right kidney. 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 History of fracture right hip, left femur, left wrist. Neurological History: Reports: Neuropathy, Peripheral Other Neuro History: Bilateral peripheral neuropathy. Psychiatric History: Reports: Anxiety, Depression Other Psychiatric History: Insomnia. Endocrine/Metabolic History: Reports: Obesity/BMI 30+, Osteoporosis Other Endocrine/Metabolic History: Impaired glucose tolerance. Hematologic History: Reports: Anemia, Anticoagulation Therapy, Blood Transfusion(s) Dermatologic History: Reports: Cellulitis - Infectious Disease History Infectious Disease History: Reports: Measles, Mumps Other Infectious Disease History: Staph infection right ear, unsure if MRSA. - Past Surgical History Head Surgeries/Procedures: Reports: None HEENT Surgical History: Reports: Cataract Surgery, Oral Surgery Other HEENT Surgeries/Procedures: bilat cataract surgery, Cardiovascular Surgical History: Reports: None Respiratory Surgical History: Reports: None GI Surgical History: Reports: Appendectomy, Bariatric Procedure, Cholecystectomy, Colonoscopy, EGD, Other (See Below) Other GI Surgeries/Procedures: abd fistula repaired, 09/04/2019. splenectomy . Gastric bypass revision Female Surgical History: Reports: Hysterectomy, Salpingo-Oophorectomy, Tubal Ligation Endocrine Surgical History: Reports: None Neurological Surgical History: Reports: None Musculoskeletal Surgical History: Reports: Carpal Tunnel, Hip Replacement, ORIF, Shoulder Surgery Other Musculoskeletal Surgeries/Procedures:: bilat SHOULDER ARTHROPLASTY, ORIF to L wrist, pins removed, Social & Family History - Family History Family Medical History: No Pertinent Family History HEENT: Reports: Glaucoma, Macular Degeneration Cardiac: Reports: Hypertension Endocrine/Metabolic: Reports: Diabetes Mellitus, Type 3c Oncologic: Reports: Brain, Colon, Lung Other Oncologic Family History: Throat. Liver. Stomach. - Tobacco Use Tobacco Use Status *Q: Never Tobacco User Second Hand Smoke Exposure: No - Caffeine Use Caffeine Use: Reports: None Other Caffeine Use: states that she takes powerade. - Recreational Drug Use Recreational Drug Use: No - Living Situation & Occupation Living situation: Reports: Alone H&P Review of Systems - Review of Systems: Review Of Systems: Comprehensive ROS is negative, except as noted in HPI. Exam - Exam Exam: See Below - Vital Signs Vital Signs: Last Vital Signs Temp 97.8 F 07/14/20 08:00 Pulse 129 H 07/14/20 08:00 Resp 18 07/14/20 08:00 BP 106/66 07/14/20 08:00 Pulse Ox 95 07/14/20 08:00 Weight: 141 lb 3 oz - Exam General: Alert, Oriented, Cooperative. No: Mild Distress HEENT: PERRLA, Conjunctiva Clear, EOMI, Hearing Intact, Mucosa Moist & [place]ren[place] (no teeth, no dentures in place) Neck: Trachea Midline Lungs: Clear to Auscultation, Normal Respiratory Effort Cardiovascular: Irregular Rhythm, Tachycardia GI/Abdominal Exam: Normal Bowel Sounds, Soft, No Distention, Guarding, Tender (diffuse, Mepilex dressing in place, midline). No: Rigid, Rebound (Female) Exam: Deferred Rectal (Female) Exam: Deferred Extremities: No Pedal Edema Peripheral Pulses: 2+: Radial (L), Radial (R) - Patient Data Lab Results Last 24 hrs: Laboratory Results - last 24 hr 07/13/20 07/13/20 07/13/20 Range/Units 18:50 18:50 18:50 WBC 6.1 (3.0-10.3) x10-3/uL RBC 4.83 (3.60-5.20) x10(6)uL Hgb 13.4 (11.4-15.5) g/dL Hct 42.3 (34.2-48.2) % MCV 87.5 (76.7-100.5) fL MCH 27.8 (23.9-33.9) pg MCHC 31.7 L (31.9-34.8) g/dL RDW 17.4 H (12.3-16.5) % Plt Count 239 (151-488) x10(3)uL MPV 9.1 (7.1-12.4) fL Add Manual Diff Yes Neutrophils % (Manual) 60 (46-82) % Band Neutrophils % 2 (0-6) % Lymphocytes % (Manual) 30 (13-37) % Monocytes % (Manual) 8 (4-12) % Sodium 137 (135-145) mmol/L Potassium 4.3 (3.5-5.3) mmol/L Chloride 98 L (100-110) mmol/L Carbon Dioxide 23 (21-32) mmol/L BUN 13 (7-18) mg/dL Creatinine 0.8 (0.55-1.02) mg/dL Est Cr Clr Drug Dosing TNP Estimated GFR (MDRD) > 60 (>60) BUN/Creatinine Ratio 16.3 (9-20) Glucose 97 (80-116) mg/dL Calcium 10.1 (8.6-10.2) mg/dL Magnesium (1.8-2.5) mg/dL Total Bilirubin 0.5 (0.1-1.3) mg/dL AST 42 H D (5-25) IU/L ALT 51 H D (12-36) U/L Alkaline Phosphatase 82 (56-112) IU/L Troponin I 15.4 (4.0-60.3) pg/mL C-Reactive Protein 1.8 H (0.5-0.9) mg/dL Total Protein 7.5 (6.0-8.0) g/dL Albumin 3.0 L (3.2-4.6) g/dL Globulin 4.5 g/dL Albumin/Globulin Ratio 0.7 Lipase (73-393) U/L SARS-CoV-2 RNA (HARRIET) (NEGATIVE) 07/13/20 07/13/20 07/13/20 Range/Units 18:50 18:50 19:45 WBC (3.0-10.3) x10-3/uL RBC (3.60-5.20) x10(6)uL Hgb (11.4-15.5) g/dL Hct (34.2-48.2) % MCV (76.7-100.5) fL MCH (23.9-33.9) pg MCHC (31.9-34.8) g/dL RDW (12.3-16.5) % Plt Count (151-488) x10(3)uL MPV (7.1-12.4) fL Add Manual Diff Neutrophils % (Manual) (46-82) % Band Neutrophils % (0-6) % Lymphocytes % (Manual) (13-37) % Monocytes % (Manual) (4-12) % Sodium (135-145) mmol/L Potassium (3.5-5.3) mmol/L Chloride (100-110) mmol/L Carbon Dioxide (21-32) mmol/L BUN (7-18) mg/dL Creatinine (0.55-1.02) mg/dL Est Cr Clr Drug Dosing Estimated GFR (MDRD) (>60) BUN/Creatinine Ratio (9-20) Glucose (80-116) mg/dL Calcium (8.6-10.2) mg/dL Magnesium 1.8 (1.8-2.5) mg/dL Total Bilirubin (0.1-1.3) mg/dL AST (5-25) IU/L ALT (12-36) U/L Alkaline Phosphatase (56-112) IU/L Troponin I (4.0-60.3) pg/mL C-Reactive Protein (0.5-0.9) mg/dL Total Protein (6.0-8.0) g/dL Albumin (3.2-4.6) g/dL Globulin g/dL Albumin/Globulin Ratio Lipase 14 L (73-393) U/L SARS-CoV-2 RNA (HARRIET) Negative (NEGATIVE) Result Diagrams: 07/13/20 18:50 07/13/20 18:50 Sepsis Event Note - Evaluation Sepsis Screening Result: No Definite Risk - Focused Exam Vital Signs: Vital Signs Temp Pulse Resp BP Pulse Ox 07/14/20 08:00 97.8 F 129 H 18 106/66 95 07/14/20 03:00 98.2 F 116 H 20 108/74 97 *Q Meaningful Use (ADM) - VTE Risk Assess *Q Each Risk Factor Represents 1 Point: Congestive heart failure (CHF) Total Score 1 Point Risk Factors: 1 Each Risk Factor Represents 2 Points: Age 60 - 74 Years Total Score 2 Point Risk Factors: 2 Each Risk Factor Represents 3 Points: History of DVT/PE Total Score 3 Point Risk Factors: 3 Each Risk Factor Represents 5 Points: None Total Score 5 Point Risk Factors: 0 Venous Thromboembolism Risk Factor Score *Q: 6 - Problem List (1) Atrial fibrillation with rapid ventricular response SNOMED Code(s): 461309775455702 ICD Code: I48.91 - UNSPECIFIED ATRIAL FIBRILLATION Status: Acute Current Visit: Yes Problem Details: paroxysmal, last was in atrial fibrillation 04/2019. 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 (2) Diarrhea SNOMED Code(s): 33794809 ICD Code: R19.7 - DIARRHEA, UNSPECIFIED Status: Acute Current Visit: No Qualifiers: Diarrhea type: due to malabsorption Qualified Code(s): K90.9 - Intestinal malabsorption, unspecified; R19.7 - Diarrhea, unspecified (3) Cochlear implant status SNOMED Code(s): 915244169 ICD Code: Z96.21 - COCHLEAR IMPLANT STATUS Status: Chronic Current Visit: No (4) Chronic abdominal pain SNOMED Code(s): 324828923 ICD Code: R10.9 - UNSPECIFIED ABDOMINAL PAIN; G89.29 - OTHER CHRONIC PAIN Status: Chronic Current Visit: Yes (5) Malnutrition following gastrointestinal surgery SNOMED Code(s): 223822401, 066105447 ICD Code: K91.2 - POSTSURGICAL MALABSORPTION, NOT ELSEWHERE CLASSIFIED Status: Chronic Current Visit: No (6) Protein calorie malnutrition SNOMED Code(s): 523706132 ICD Code: E46 - UNSPECIFIED PROTEIN-CALORIE MALNUTRITION Status: Chronic Current Visit: No Problem Details: Ensure with soft diet. Qualifiers: Protein-calorie malnutrition severity: severe Qualified Code(s): E43 - Unspecified severe protein-calorie malnutrition (7) S/P bariatric surgery SNOMED Code(s): 794326964, 000096140, 187231027 ICD Code: Z98.84 - BARIATRIC SURGERY STATUS Status: Chronic Current Visit: No (8) HTN, Benign essential hypertension SNOMED Code(s): 6590585 ICD Code: I10 - ESSENTIAL (PRIMARY) HYPERTENSION Status: Chronic Current Visit: No Problem List Initiated/Reviewed/Updated: Yes Orders Last 24hrs: Active Orders 24 hr Category Date Time Status Admission Status [Patient Status] [ADT] Routine ADT 07/13/20 20:59 Active Cardiac Monitoring [RC] QSHIFT Care 07/13/20 21:46 Active Dietary Supplements [RC] QIDACANDBED Care 07/13/20 21:54 Active Oxygen Therapy [RC] PRN Care 07/13/20 21:46 Active Up With Assistance [RC] ASDIRECTED Care 07/13/20 21:46 Active Vital Signs [RC] 08,12,16,20,00,04 Care 07/13/20 21:46 Active Nutrition Reassessment/Plan, Adult [Consult to Cons 07/13/20 21:53 Active 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] [CONS] Routine Acetaminophen [TylenoL] Med 07/14/20 10:00 Active 650 mg PO Q8H PRN Acetaminophen/HYDROcodone [Ce[place] 325-5 MG] Med 07/14/20 13:00 Active 1 tab PO Q4H Apixaban [Eliquis] Med 07/13/20 22:00 Active 5 mg PO BID Dextrose 5%-0.45% NaCl [Dextrose 5%-1/2 NS] 1,000 ml Med 07/13/20 22:00 Active IV ASDIRECTED Diltiazem IR [Cardizem] Med 07/14/20 12:00 Active 15 mg PO Q6H Fluconazole [Diflucan] Med 07/14/20 09:00 Active 200 mg PO DAILY Lansoprazole [Lansoprazole] Med 07/14/20 09:00 Active 15 mg PO DAILY Melatonin [Melatonin] Med 07/14/20 21:00 Active 3 mg PO BEDTIME Metoprolol Tartrate [Lopressor] Med 07/13/20 21:51 Active 2.5 mg IVPUSH Q4H PRN Sertraline [Zoloft] Med 07/14/20 09:00 Active 100 mg PO DAILY Resuscitation Status Routine Resus Stat 07/13/20 21:46 Ordered EKG 12 Lead [EK] Routine Ther 07/13/20 17:54 Ordered Medication Orders Acetaminophen (Acetaminophen 325 Mg Tab) 650 mg PO Q8H PRN PRN Reason: Pain (Mild 1-3)/fever Hydrocodone Bitart/Acetaminophen (Acetaminophen/Hydrocodone 325-5 Mg Tab) 1 tab PO Q4H [facility] Apixaban (Apixaban 5 Mg Tab) 5 mg PO BID [facility] Last Admin: 07/14/20 09:10 Dose: 5 mg Documented by: Admin: 07/13/20 23:10 Dose: 5 mg Documented by: MINH Diltiazem HCl (Diltiazem Ir 30 Mg Tab) 15 mg PO Q6H [facility] Dextrose/Sodium Chloride (Dextrose 5%-1/2 Ns) 1,000 mls @ 75 mls/hr IV ASDIRECTED [facility] Last Admin: 07/14/20 04:23 Dose: 75 mls/hr Documented by: MINH Metoprolol Tartrate (Metoprolol Tartrate 5 Mg/5 Ml Sdv) 2.5 mg IVPUSH Q4H PRN PRN Reason: Tachycardia Non-Formulary Medication (Fluconazole [Diflucan]) 200 mg PO DAILY [facility] Non-Formulary Medication (Lansoprazole [Lansoprazole]) 15 mg PO DAILY [facility] Non-Formulary Medication (Melatonin [Melatonin]) 3 mg PO BEDTIME [facility] Sertraline HCl (Sertraline 100 Mg Tab) 100 mg PO DAILY [facility] Assessment/Plan Comment:: 1. Admit for observation of reoccurrence of Atrial fibrillation with RVR, hypotension. 2. Atrial fibrillation with RVR: telemetry: rate has been between 110s-140s, asymptomatic. Diltiazem 15 mg IV given x 1, rate came down to 80s. She did have itching at IV site given Benadryl 25 mg IV x 1 resolved symptoms. Diltiazem 15 mg IR po q6h will monitor her response to oral. Reluctant to do Digoxin due to her gastric revision. She did convert at [facility] on Amiodarone and did not require going home on this, if has itching or symptomatic hypotension with Diltiazem, will try oral Amiodarone. Recent echo at [facility], will not repeat. Treated for PE with Eliquis, so already anticoagulated. No signs of MT or pneumonia/infection currently. 3. Diet: Soft with Ensure supplements. 4. Activity: up with assistance. 5. DVT prophylaxis: Eliquis bid. 6. CODE STATUS: DNR/DNI. 7. Discharge planning: anticipate 24-48 hrs of observation, response to medications for rate control. - Mortality Measure Prognosis:: Good
[2020-07-14] MEDS ORDERED: Sertraline 100 MG Tab PO ONE (16:00)
[2020-07-14] MEDS: Melatonin 3 MG Tab PO SCH (20:55)
[2020-07-15] MEDS: Acetaminophen/HYDROcodone 325-5 MG Tab PO SCH ×6 (00:13→20:08)
[2020-07-15] MEDS: Diltiazem IR 30 MG Tab PO SCH ×4 (00:14→20:08)
[2020-07-15] MEDS ORDERED: Diltiazem IR 30 MG Tab PO SCH (07:45)
[2020-07-15] MEDS ORDERED: Diltiazem IR 30 MG Tab PO ONE (08:00)
[2020-07-15] MEDS: Apixaban 5 MG Tab PO SCH ×2 (08:44→20:07)
[2020-07-15] MEDS ORDERED: Metoprolol Succinate 25 MG Tab.ER PO ONE (11:22)
[2020-07-15] MEDS ORDERED: Sertraline 100 MG Tab *PTOM PO SCH (12:00)
[2020-07-15] MEDS ORDERED: LORazepam 0.5 MG Tab PO ONE (13:16)
[2020-07-15] MEDS ORDERED: LORazepam 0.5 MG Tab PO PRN (16:39)
--- NOTE | 2020-07-15 17:35 | PCM.PN ---
- General Info Date of Service: 07/15/20 Subjective Update: Genevieve's rate improved with Diltiazem 15 mg IV, did have some redness and itching, resolved with Benadryl. We switched to oral Diltiazem 15 mg IR q6h, she tolerated this with no redness, rash or itching. Her heart rate improved to 90s- 110s but this morning was back up in the 150s. Tramadol was discontinued yesterday and [place] was started. Pain has been controlled. Only recent change has been increased dose of Zoloft to 150 mg last week. Has had more anxiety, had low blood pressure last week in clinic. No signs of infection. Been treated for PE for 2 months on Eliquis. No evidence of CO. Possible serotonin syndrome with recent increase of Zoloft with Tramadol. No further diarrhea, but passing gas. Functional Status: Reports: Pain Controlled, Tolerating Diet, Urinating - Patient Data Vitals - Most Recent: Last Vital Signs Temp 98.2 F 07/15/20 16:00 Pulse 112 H 07/15/20 16:00 Resp 18 07/15/20 16:00 BP 110/68 07/15/20 16:00 Pulse Ox 97 07/15/20 16:00 Weight - Most Recent: 141 lb 3 oz I&O - Last 24 Hours: Intake & Output 07/15/20 07/15/20 07/15/20 06:59 14:59 22:59 Intake Total 300 Balance 300 Med Orders - Current: Current Medications Acetaminophen (Acetaminophen 325 Mg Tab) 650 mg PO Q8H PRN PRN Reason: Pain (Mild 1-3)/fever Hydrocodone Bitart/Acetaminophen (Acetaminophen/Hydrocodone 325-5 Mg Tab) 1 tab PO Q4H [facility] Last Admin: 07/15/20 16:45 Dose: 1 tab Documented by: Apixaban (Apixaban 5 Mg Tab) 5 mg PO BID [facility] Last Admin: 07/15/20 08:44 Dose: 5 mg Documented by: Buspirone HCl (Buspirone 5 Mg Tab) 2.5 mg PO BID [facility] Diltiazem HCl (Diltiazem Ir 30 Mg Tab) 30 mg PO Q6H [facility] Last Admin: 07/15/20 13:04 Dose: 30 mg Documented by: Lorazepam (Lorazepam 0.5 Mg Tab) 0.25 mg PO Q6H PRN PRN Reason: Anxiety Melatonin (Melatonin 3 Mg Tab) 3 mg PO BEDTIME ED Last Admin: 07/14/20 20:55 Dose: 3 mg Documented by: Pantoprazole Sodium (Pantoprazole 40 Mg Tab.Cr) 40 mg PO DAILY@0600 ED Sertraline HCl (Sertraline 100 Mg Tab) 100 mg PO DAILY ED Temazepam (Temazepam 15 Mg Cap) 30 mg PO BEDTIME ED Discontinued Medications Acetaminophen (Acetaminophen 325 Mg Tab) 650 mg PO Q4H PRN PRN Reason: Pain (Mild 1-3)/fever Last Admin: 07/14/20 01:25 Dose: 650 mg Documented by: Diltiazem HCl (Diltiazem 25 Mg/5 Ml Sdv) 15 mg IVPUSH ONETIME ONE Stop: 07/14/20 09:19 Last Admin: 07/14/20 09:33 Dose: 15 mg Documented by: Diltiazem HCl (Diltiazem Ir 30 Mg Tab) 15 mg PO Q6H ED Last Admin: 07/15/20 05:52 Dose: 15 mg Documented by: Diltiazem HCl (Diltiazem Ir 30 Mg Tab) 15 mg PO ONETIME ONE Stop: 07/15/20 08:01 Last Admin: 07/15/20 08:44 Dose: 15 mg Documented by: Diphenhydramine HCl (Diphenhydramine 50 Mg/Ml Sdv) 25 mg IVPUSH ONETIME ONE Stop: 07/14/20 09:46 Last Admin: 07/14/20 09:47 Dose: 25 mg Documented by: Potassium Chloride/Dextrose/Sod Cl (D5 1/2 Ns W/ 20 Meq/L Kcl) 1,000 mls @ 75 mls/hr IV ASDIRECTED ED Last Infusion: 07/14/20 04:11 Dose: Infused Documented by: Dextrose/Sodium Chloride (Dextrose 5%-1/2 Ns) 1,000 mls @ 75 mls/hr IV ASDIRECTED ED Last Infusion: 07/14/20 17:12 Dose: 75 mls/hr Documented by: Ketorolac Tromethamine (Ketorolac 30 Mg/Ml Sdv) 15 mg IVPUSH ONETIME ONE Stop: 07/13/20 20:24 Last Admin: 07/13/20 21:09 Dose: 15 mg Documented by: Lorazepam (Lorazepam 0.5 Mg Tab) 0.25 mg PO ONETIME ONE Stop: 07/15/20 13:17 Last Admin: 07/15/20 13:35 Dose: 0.25 mg Documented by: Metoprolol Succinate (Metoprolol Succinate 25 Mg Tab.Er) 12.5 mg PO ONETIME ONE Stop: 07/15/20 11:23 Last Admin: 07/15/20 11:29 Dose: 12.5 mg Documented by: Metoprolol Tartrate (Metoprolol Tartrate 5 Mg/5 Ml Sdv) 5 mg IVPUSH ONETIME ONE Stop: 07/13/20 20:20 Last Admin: 07/13/20 20:57 Dose: 5 mg Documented by: Metoprolol Tartrate (Metoprolol Tartrate 5 Mg/5 Ml Sdv) 2.5 mg IVPUSH Q4H PRN PRN Reason: Tachycardia (Lansoprazole [ Lansoprazole] 15 Mg Capsule.Dr) *Ptom 15 mg PO DAILY [facility] Last Admin: 07/15/20 08:45 Dose: 15 mg Documented by: Sertraline HCl (Sertraline 100 Mg Tab) 150 mg PO ONETIME ONE Stop: 07/14/20 16:01 Last Admin: 07/14/20 17:10 Dose: 150 mg Documented by: Sertraline HCl (Sertraline 100 Mg Tab *Ptom) 150 mg PO DAILY [facility] Last Admin: 07/15/20 11:34 Dose: 150 mg Documented by: Tramadol HCl (Tramadol 50 Mg Tab) 100 mg PO ONETIME ONE Stop: 07/13/20 20:23 Last Admin: 07/13/20 21:07 Dose: 100 mg Documented by: Tramadol HCl (Tramadol 50 Mg Tab) 100 mg PO Q6H [facility] Last Admin: 07/14/20 09:09 Dose: 100 mg Documented by: - Exam General: Alert, Oriented, Cooperative, No Acute Distress Lungs: Clear to Auscultation, Normal Respiratory Effort Cardiovascular: Irregular Rhythm, Tachycardia GI/Abdominal Exam: Normal Bowel Sounds, Soft, No Distention, Guarding, Tender (diffuse) Extremities: No Pedal Edema Peripheral Pulses: 2+: Radial (L), Radial (R) Wound/Incisions: Healing Well (granulation tissue midline incision, slough tissue, no surrounding erythema) - Patient Data Result Diagrams: 07/13/20 18:50 07/13/20 18:50 Sepsis Event Note - Evaluation Sepsis Screening Result: No Definite Risk - Focused Exam Vital Signs: Vital Signs Temp Pulse Pulse Resp BP BP Pulse Ox 07/15/20 16:00 98.2 F 112 H 18 110/68 97 07/15/20 12:00 98.0 F 120 H 18 106/66 97 07/15/20 11:29 148 H 106/66 07/15/20 08:00 98.3 F 123 H 18 101/68 96 - Problem List & Annotations (1) Atrial fibrillation with rapid ventricular response SNOMED Code(s): 606717681664568 Code(s): I48.91 - UNSPECIFIED ATRIAL FIBRILLATION Status: Acute Current Visit: Yes Annotation/Comment:: paroxysmal, last was in atrial fibrillation 04/2019. At time felt it was secondary to her sepsis from enteric fistula/absce ss. (2) Diarrhea SNOMED Code(s): 89768033 Code(s): R19.7 - DIARRHEA, UNSPECIFIED Status: Acute Current Visit: No Qualifiers: Diarrhea type: due to malabsorption Qualified Code(s): K90.9 - Intestinal malabsorption, unspecified; R19.7 - Diarrhea, unspecified (3) Cochlear implant status SNOMED Code(s): 489020470 Code(s): Z96.21 - COCHLEAR IMPLANT STATUS Status: Chronic Current Visit: No (4) Chronic abdominal pain SNOMED Code(s): 225088184 Code(s): R10.9 - UNSPECIFIED ABDOMINAL PAIN; G89.29 - OTHER CHRONIC PAIN Status: Chronic Current Visit: Yes (5) Malnutrition following gastrointestinal surgery SNOMED Code(s): 300353444, 336385679 Code(s): K91.2 - POSTSURGICAL MALABSORPTION, NOT ELSEWHERE CLASSIFIED Status: Chronic Current Visit: No (6) Protein calorie malnutrition SNOMED Code(s): 461461506 Code(s): E46 - UNSPECIFIED PROTEIN-CALORIE MALNUTRITION Status: Chronic Current Visit: No Qualifiers: Protein-calorie malnutrition severity: severe Qualified Code(s): E43 - Unspecified severe protein-calorie malnutrition Annotation/Comment:: Ensure with soft diet. (7) S/P bariatric surgery SNOMED Code(s): 842652546, 407733004, 854113435 Code(s): Z98.84 - BARIATRIC SURGERY STATUS Status: Chronic Current Visit: No (8) HTN, Benign essential hypertension SNOMED Code(s): 5675016 Code(s): I10 - ESSENTIAL (PRIMARY) HYPERTENSION Status: Chronic Current Visit: No - Problem List Review Problem List Initiated/Reviewed/Updated: Yes - My Orders Last 24 Hours: My Active Orders 07/15/20 14:00 Diltiazem IR [Cardizem] 30 mg PO Q6H 07/15/20 15:17 Patient Status [ADT] Routine 07/15/20 16:39 LORazepam [Ativan] 0.25 mg PO Q6H PRN 07/15/20 21:00 Temazepam [Restoril] 30 mg PO BEDTIME busPIRone [Buspar] 2.5 mg PO BID 07/16/20 06:00 Pantoprazole [ProTONIX] 40 mg PO DAILY@0600 07/16/20 09:00 Sertraline [Zoloft] 100 mg PO DAILY - Plan Plan:: 1. Atrial fibrillation with RVR: telemetry: rate has been between 110s-140s, asymptomatic. Diltiazem 30 mg po q6h, metoprolol 12.5 x 1, BP tolerated, will do q12h. Ativan 0.25 mg po x 1 given, rates decreased 90s-110s, some back up into the 150s. May be serotonin syndrome, Tramadol was discontinued yesterday, decreased Sertraline to 100 mg daily. Ativan 0.25 po q4h as needed anxiety. Buspar 2.5 mg bid, levels can be increased with Diltiazem so will start low and titrate to response. Recent echo at [place], will not repeat. Treated for PE with Eliquis, so already anticoagulated. No signs of CO or pneumonia/infection currently. She did not respond to treatment within 24-48 hours so will change to inpatient status. She is stable so will not transfer at this time. Her sister is coming tomorrow to have her sign some legal documents. 2. Hypotension: improving with improvement with rate, will continue adjust medications as needed. 3. Diet: patient requested to go back on full liquid diet. 4. DVT prophylaxis: Eliquis bid.
[2020-07-15] MEDS: Metoprolol Tartrate 25 MG Tab PO SCH (18:00)
[2020-07-15] MEDS: Melatonin 3 MG Tab PO SCH (20:07)
[2020-07-15] MEDS: busPIRone 5 MG Tab PO SCH (20:08)
[2020-07-15] MEDS: Temazepam 15 MG Cap PO SCH (20:13)
[2020-07-16] MEDS: Acetaminophen/HYDROcodone 325-5 MG Tab PO SCH ×6 (00:51→20:54)
[2020-07-16] MEDS: Diltiazem IR 30 MG Tab PO SCH ×4 (01:00→20:03)
[2020-07-16] MEDS: Pantoprazole 40 MG Tab.CR PO SCH (05:04)
[2020-07-16] MEDS: Metoprolol Tartrate 25 MG Tab PO SCH ×2 (05:05→18:34)
[2020-07-16] MEDS: Apixaban 5 MG Tab PO SCH ×2 (08:40→20:50)
[2020-07-16] MEDS: busPIRone 5 MG Tab PO SCH ×2 (08:41→20:50)
[2020-07-16] MEDS: Sertraline 100 MG Tab PO SCH (08:43)
--- NOTE | 2020-07-16 09:26 | PCM.PN ---
- General Info Date of Service: 07/16/20 Subjective Update: Genevieve states she is feeling much better today, sitting up eating. Passing gas but no diarrhea since admission. HR per telemetry has been in 90s-110s, 120s with activity. Slept on her telemetry box so a little sore on that side. Not as anxious today. - Patient Data Vitals - Most Recent: Last Vital Signs Temp 98.4 F 07/16/20 08:00 Pulse 88 07/16/20 08:00 Resp 19 07/16/20 08:00 BP 88/60 L 07/16/20 08:00 Pulse Ox 92 L 07/16/20 08:00 Weight - Most Recent: 141 lb 3 oz Med Orders - Current: Current Medications Acetaminophen (Acetaminophen 325 Mg Tab) 650 mg PO Q8H PRN PRN Reason: Pain (Mild 1-3)/fever Hydrocodone Bitart/Acetaminophen (Acetaminophen/Hydrocodone 325-5 Mg Tab) 1 tab PO Q4H [facility] Last Admin: 07/16/20 08:46 Dose: 1 tab Documented by: Apixaban (Apixaban 5 Mg Tab) 5 mg PO BID [facility] Last Admin: 07/16/20 08:40 Dose: 5 mg Documented by: Buspirone HCl (Buspirone 5 Mg Tab) 2.5 mg PO BID [facility] Last Admin: 07/16/20 08:41 Dose: 2.5 mg Documented by: Diltiazem HCl (Diltiazem Ir 30 Mg Tab) 30 mg PO Q6H [facility] Last Admin: 07/16/20 08:39 Dose: 30 mg Documented by: Lorazepam (Lorazepam 0.5 Mg Tab) 0.25 mg PO Q6H PRN PRN Reason: Anxiety Melatonin (Melatonin 3 Mg Tab) 3 mg PO BEDTIME [facility] Last Admin: 07/15/20 20:07 Dose: 3 mg Documented by: Metoprolol Tartrate (Metoprolol Tartrate 25 Mg Tab) 12.5 mg PO Q12H [facility] Last Admin: 07/16/20 05:05 Dose: 12.5 mg Documented by: Pantoprazole Sodium (Pantoprazole 40 Mg Tab.Cr) 40 mg PO DAILY@0600 [facility] Last Admin: 07/16/20 05:04 Dose: 40 mg Documented by: Sertraline HCl (Sertraline 100 Mg Tab) 100 mg PO DAILY [facility] Last Admin: 07/16/20 08:43 Dose: 100 mg Documented by: Temazepam (Temazepam 15 Mg Cap) 30 mg PO BEDTIME ED Last Admin: 07/15/20 20:13 Dose: 30 mg Documented by: Discontinued Medications Acetaminophen (Acetaminophen 325 Mg Tab) 650 mg PO Q4H PRN PRN Reason: Pain (Mild 1-3)/fever Last Admin: 07/14/20 01:25 Dose: 650 mg Documented by: Diltiazem HCl (Diltiazem 25 Mg/5 Ml Sdv) 15 mg IVPUSH ONETIME ONE Stop: 07/14/20 09:19 Last Admin: 07/14/20 09:33 Dose: 15 mg Documented by: Diltiazem HCl (Diltiazem Ir 30 Mg Tab) 15 mg PO Q6H [facility] Last Admin: 07/15/20 05:52 Dose: 15 mg Documented by: Diltiazem HCl (Diltiazem Ir 30 Mg Tab) 15 mg PO ONETIME ONE Stop: 07/15/20 08:01 Last Admin: 07/15/20 08:44 Dose: 15 mg Documented by: Diphenhydramine HCl (Diphenhydramine 50 Mg/Ml Sdv) 25 mg IVPUSH ONETIME ONE Stop: 07/14/20 09:46 Last Admin: 07/14/20 09:47 Dose: 25 mg Documented by: Potassium Chloride/Dextrose/Sod Cl (D5 1/2 Ns W/ 20 Meq/L Kcl) 1,000 mls @ 75 mls/hr IV ASDIRECTED [facility] Last Infusion: 07/14/20 04:11 Dose: Infused Documented by: Dextrose/Sodium Chloride (Dextrose 5%-1/2 Ns) 1,000 mls @ 75 mls/hr IV ASDIRECTED [facility] Last Infusion: 07/14/20 17:12 Dose: 75 mls/hr Documented by: Ketorolac Tromethamine (Ketorolac 30 Mg/Ml Sdv) 15 mg IVPUSH ONETIME ONE Stop: 07/13/20 20:24 Last Admin: 07/13/20 21:09 Dose: 15 mg Documented by: Lorazepam (Lorazepam 0.5 Mg Tab) 0.25 mg PO ONETIME ONE Stop: 07/15/20 13:17 Last Admin: 07/15/20 13:35 Dose: 0.25 mg Documented by: Metoprolol Succinate (Metoprolol Succinate 25 Mg Tab.Er) 12.5 mg PO ONETIME ONE Stop: 07/15/20 11:23 Last Admin: 07/15/20 11:29 Dose: 12.5 mg Documented by: Metoprolol Tartrate (Metoprolol Tartrate 5 Mg/5 Ml Sdv) 5 mg IVPUSH ONETIME ONE Stop: 07/13/20 20:20 Last Admin: 07/13/20 20:57 Dose: 5 mg Documented by: Metoprolol Tartrate (Metoprolol Tartrate 5 Mg/5 Ml Sdv) 2.5 mg IVPUSH Q4H PRN PRN Reason: Tachycardia (Lansoprazole [ Lansoprazole] 15 Mg Capsule.Dr) *Ptom 15 mg PO DAILY [facility] Last Admin: 07/15/20 08:45 Dose: 15 mg Documented by: Sertraline HCl (Sertraline 100 Mg Tab) 150 mg PO ONETIME ONE Stop: 07/14/20 16:01 Last Admin: 07/14/20 17:10 Dose: 150 mg Documented by: Sertraline HCl (Sertraline 100 Mg Tab *Ptom) 150 mg PO DAILY [facility] Last Admin: 07/15/20 11:34 Dose: 150 mg Documented by: Tramadol HCl (Tramadol 50 Mg Tab) 100 mg PO ONETIME ONE Stop: 07/13/20 20:23 Last Admin: 07/13/20 21:07 Dose: 100 mg Documented by: Tramadol HCl (Tramadol 50 Mg Tab) 100 mg PO Q6H [facility] Last Admin: 07/14/20 09:09 Dose: 100 mg Documented by: - Exam General: Alert, Oriented, Cooperative, No Acute Distress Lungs: Clear to Auscultation, Normal Respiratory Effort Cardiovascular: Irregular Rhythm, Tachycardia GI/Abdominal Exam: Normal Bowel Sounds, Soft, No Distention, Guarding, Tender (diffuse) - Patient Data Result Diagrams: 07/13/20 18:50 07/13/20 18:50 Sepsis Event Note - Evaluation Sepsis Screening Result: No Definite Risk - Focused Exam Vital Signs: Vital Signs Temp Pulse Pulse Resp BP BP Pulse Ox 07/16/20 08:00 98.4 F 88 19 88/60 L 92 L 07/16/20 05:05 114 H 98/68 07/16/20 05:00 98.1 F 113 H 16 98/68 94 L 07/16/20 00:00 98.6 F 127 H 16 102/70 96 - Problem List & Annotations (1) Atrial fibrillation with rapid ventricular response SNOMED Code(s): 645977354477770 Code(s): I48.91 - UNSPECIFIED ATRIAL FIBRILLATION Status: Acute Current Visit: Yes Annotation/Comment:: paroxysmal, last was in atrial fibrillation 04/2019. 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 (2) Serotonergic syndrome SNOMED Code(s): 366476632 Code(s): G25.79 - OTHER DRUG INDUCED MOVEMENT DISORDERS Status: Acute Current Visit: Yes Annotation/Comment:: suspected with recent increased of Zoloft and Tramadol use. Tramadol discontinued on Tuesday, Zoloft decreased to 100 mg daily x 3, then 50 mg daily x 3 days. Will switch her over to Cymbalta once down to 50 mg daily. Ativan as needed. Buspirone 2.5 mg bid. (3) Chronic abdominal pain SNOMED Code(s): 509545137 Code(s): R10.9 - UNSPECIFIED ABDOMINAL PAIN; G89.29 - OTHER CHRONIC PAIN Status: Chronic Current Visit: Yes (4) Cochlear implant status SNOMED Code(s): 654191065 Code(s): Z96.21 - COCHLEAR IMPLANT STATUS Status: Chronic Current Visit: No (5) Malnutrition following gastrointestinal surgery SNOMED Code(s): 638843312, 079141277 Code(s): K91.2 - POSTSURGICAL MALABSORPTION, NOT ELSEWHERE CLASSIFIED Status: Chronic Current Visit: No (6) Protein calorie malnutrition SNOMED Code(s): 443346860 Code(s): E46 - UNSPECIFIED PROTEIN-CALORIE MALNUTRITION Status: Chronic Current Visit: No Qualifiers: Protein-calorie malnutrition severity: severe Qualified Code(s): E43 - Unspecified severe protein-calorie malnutrition Annotation/Comment:: Ensure with soft diet. (7) S/P bariatric surgery SNOMED Code(s): 310590205, 856252017, 297482665 Code(s): Z98.84 - BARIATRIC SURGERY STATUS Status: Chronic Current Visit: No (8) HTN, Benign essential hypertension SNOMED Code(s): 1995272 Code(s): I10 - ESSENTIAL (PRIMARY) HYPERTENSION Status: Chronic Current Visit: No (9) Diarrhea SNOMED Code(s): 28318315 Code(s): R19.7 - DIARRHEA, UNSPECIFIED Status: Resolved Current Visit: No Qualifiers: Diarrhea type: due to malabsorption Qualified Code(s): K90.9 - Intestinal malabsorption, unspecified; R19.7 - Diarrhea, unspecified - Problem List Review Problem List Initiated/Reviewed/Updated: Yes - My Orders Last 24 Hours: My Active Orders 07/15/20 14:00 Diltiazem IR [Cardizem] 30 mg PO Q6H 07/15/20 15:17 Patient Status [ADT] Routine 07/15/20 16:39 LORazepam [Ativan] 0.25 mg PO Q6H PRN 07/15/20 18:00 Metoprolol Tartrate [Lopressor] 12.5 mg PO Q12H 07/15/20 21:00 Temazepam [Restoril] 30 mg PO BEDTIME busPIRone [Buspar] 2.5 mg PO BID 07/16/20 06:00 Pantoprazole [ProTONIX] 40 mg PO DAILY@0600 07/16/20 09:00 Sertraline [Zoloft] 100 mg PO DAILY - Plan Plan:: 1. Atrial fibrillation with RVR: telemetry: rate has been between 90-110s, asymptomatic. Diltiazem 30 mg po q6h, metoprolol 12.5 bid, continue to monitor and adjust treatments as necessary. 2. Suspected serotonin syndrome, Tramadol was discontinued yesterday, decreased Sertraline to 100 mg daily x 3 days then decrease to 50 mg x 3 then discontinue. Once she is down to 50 mg dose then switch to Cymbalta. Ativan 0.25 po q4h as needed anxiety. Buspar 2.5 mg bid. 3. Hypotension: improving with improvement with rate, will continue adjust medications as needed. 4. Diet: patient requested to go back on full liquid diet. 5. DVT prophylaxis: Eliquis bid. 6. Discharge planning: anticipate discharge tomorrow or Tuesday once improved rate control. Can wean off of Zoloft as outpatient.
[2020-07-16] MEDS ORDERED: Diltiazem IR 30 MG Tab PO ONE (14:00)
[2020-07-16] MEDS: Melatonin 3 MG Tab PO SCH (20:50)
[2020-07-16] MEDS: Temazepam 15 MG Cap PO SCH (20:54)
[2020-07-17] MEDS: Diltiazem IR 30 MG Tab PO SCH ×3 (01:46→13:21)
[2020-07-17] MEDS: Acetaminophen/HYDROcodone 325-5 MG Tab PO SCH ×4 (01:46→12:29)
[2020-07-17] MEDS: Metoprolol Tartrate 25 MG Tab PO SCH (05:44)
[2020-07-17] MEDS: Pantoprazole 40 MG Tab.CR PO SCH (05:45)
[2020-07-17] MEDS: Sertraline 100 MG Tab PO SCH (08:51)
[2020-07-17] MEDS: Apixaban 5 MG Tab PO SCH (08:51)
[2020-07-17] MEDS: busPIRone 5 MG Tab PO SCH (08:51)
[2020-07-17 13:17] VITALS: BP 104/52; PULSE 79
--- NOTE | 2020-07-17 16:44 | PCM.DCSUM1 ---
Discharge Summary - Hospital Course HPI Initial Comments: Genevieve presented to ER yesterday for abdominal pain, diarrhea x 5 yesterday. She has lost 11 more pounds since discharge from swing bed at [facility] on 06/26. She was seen in ER 7 days ago, had negative KUB. Taking Tramadol 100 mg q6h for pain. Denies any nausea or vomiting. She is due to go back to [facility] to see her surgeon on July 24. She has been drinking Ensure & doing a soft diet since discharge. 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 She was found to have pulmonary emboli during acute stay at [facility] was discharged on Eliquis. While she was being evaluated in ER, her rate went from 80s to 140-150s, was in atrial fibrillation. She denies any shortness of breath, lightheadedness or chest pain with it. No diaphoresis. She saw Dr Johnson, her PCP last Tuesday, also had low blood pressure 85/50s but was asymptomatic so nothing further was done. In ER, labs unremarkable. No signs of infection. Covid negative. Hypotensive, received bolus of IV fluids then D51/2NS at 125 ml/hr then reduced to 75 ml/hr. Given Metoprolol 5 mg IV was given 3 mg initially then 2 mg to make sure her blood pressure tolerated. Did not receive any doses Metoprolol 2.5 mg IV overnight. Diagnosis: Stroke: No - Discharge Data Discharge Date: 07/17/20 ([facility]) Discharge Disposition: Home, W Home Health Agency 06 Condition: Good - Referral to Home Health Date of Face to Face Encounter: 07/17/20 Reason for Homebound Status: limited mobility after multiple bariatric surgeries, weakness Primary Care Physician: Mir Johnson MD Skilled Need: [facility] - Discharge Diagnosis/Problem(s) (1) Atrial fibrillation with rapid ventricular response SNOMED Code(s): 181347430845706 ICD Code: I48.91 - UNSPECIFIED ATRIAL FIBRILLATION Status: Acute Problem Details: paroxysmal, last was in atrial fibrillation 04/2019. 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 Rate controlled on Diltiazem 30 mg po q6h, Metoprolol 12.5 mg bid. (2) Serotonergic syndrome SNOMED Code(s): 303128420 ICD Code: G25.79 - OTHER DRUG INDUCED MOVEMENT DISORDERS Status: Acute Problem Details: suspected with recent increased of Zoloft and Tramadol use. Tramadol discontinued on Tuesday, Zoloft decreased to 100 mg daily x 3, then 50 mg daily x 3 days. Will switch her over to Cymbalta once down to 50 mg daily. Buspirone 2.5 mg bid. (3) Chronic abdominal pain SNOMED Code(s): 882479515 ICD Code: R10.9 - UNSPECIFIED ABDOMINAL PAIN; G89.29 - OTHER CHRONIC PAIN Status: Chronic (4) Cochlear implant status SNOMED Code(s): 450363174 ICD Code: Z96.21 - COCHLEAR IMPLANT STATUS Status: Chronic (5) Malnutrition following gastrointestinal surgery SNOMED Code(s): 766903192, 033939933 ICD Code: K91.2 - POSTSURGICAL MALABSORPTION, NOT ELSEWHERE CLASSIFIED Status: Chronic (6) Protein calorie malnutrition SNOMED Code(s): 434546599 ICD Code: E46 - UNSPECIFIED PROTEIN-CALORIE MALNUTRITION Status: Chronic Problem Details: Ensure with soft diet. 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 Diltiazem 15 mg IV x 1 given, heart rate came down to 90-110s, did have reaction to IV form, redness along vein and itching. Resolved with Benadryl 25 mg IV x1. Diltiazem 15 mg po q6h started, stayed in 90-110s during the day but then came back up to 140-150s. Increased to 30 mg po q6h and added Metoprolol 12.5 mg x 1 then bid. Her SBP were between 80s-100s, she remained asymptomatic during hospital stay. No NV, or infection. TSH normal. Has been treated for PE for past 2 months on Eliquis so already anticoagulated. Heart rate today was 60-80s, still in atrial fibrillation. Only new change was increased in her Zoloft 150 mg 1 week prior to admission, she had been taken Tramadol 100 mg every 4-6 hours. Suspected possible serotonin syndrome, Tramadol was discontinued on 07/14, Zoloft decreased to 100 mg on 07/15 x 3 days, will start Zoloft 50 mg daily x 3 days on 07/18 then discontinue. Start Cymbalta 30 mg daily on 07/18. Her epigastric pain remained mild, incision is healing well. Had no further diarrhea during hospital stay, had formed soft bowel movement evening prior to discharge. - Patient Instructions Diet: Usual Diet as Tolerated Diet, Other: 60-65 g protein/day, 800-1000cal/day Activity: As Tolerated Showering/Bathing: July Shower Notify Provider of: Fever, Increased Pain, Nausea and/or Vomiting Other/Special Instructions: Follow up with Dr Johnson on TuesdayJuly 21 to recheck your heart rate and blood pressures prior to going to [facility]. - Discharge Plan *PRESCRIPTION DRUG MONITORING PROGRAM REVIEWED*: No *COPY OF PRESCRIPTION DRUG MONITORING REPORT IN PATIENT MANUEL: No Prescriptions/Med Rec: busPIRone [Buspar] 2.5 mg PO BID 30 Days #60 tablet Diltiazem IR [Cardizem] 30 mg PO Q6H 30 Days #120 tablet DULoxetine [Cymbalta] 30 mg PO DAILY 30 Days #30 cap Metoprolol Tartrate [Lopressor] 12.5 mg PO Q12H 30 Days #60 tablet Acetaminophen/HYDROcodone [[place] 325-5 MG] 1 tab PO Q4H 4 Days #24 tablet Sertraline [Zoloft] 50 mg PO DAILY 3 Days #2 tablet Home Medications: Home Meds Apixaban [Eliquis] 5 mg PO BID 07/07/20 [History] Lansoprazole 15 mg PO DAILY 07/07/20 [History] Melatonin 3 mg PO BEDTIME 07/07/20 [History] Temazepam 30 mg PO BEDTIME 07/14/20 [History] Acetaminophen/HYDROcodone [[place] 325-5 MG] 1 tab PO Q4H 4 Days #24 tablet 07/17/20 [Rx] DULoxetine [Cymbalta] 30 mg PO DAILY 30 Days #30 cap 07/17/20 [Rx] Diltiazem IR [Cardizem] 30 mg PO Q6H 30 Days #120 tablet 07/17/20 [Rx] Metoprolol Tartrate [Lopressor] 12.5 mg PO Q12H 30 Days #60 tablet 07/17/20 [Rx] Sertraline [Zoloft] 50 mg PO DAILY 3 Days #2 tablet 07/17/20 [Rx] busPIRone [Buspar] 2.5 mg PO BID 30 Days #60 tablet 07/17/20 [Rx] Oxygen Therapy Mode: Room Air Patient Handouts: Fall Prevention in the Home, Adult, [id number], Nonspecific Chest Pain, Adult, [id number], Atrial Fibrillation, [id number] Forms: ED Department Discharge Referrals: Mir Johnson MD [Primary Care Provider] - - Discharge Summary/Plan Comment DC Time >30 min.: No - General Info Date of Service: 07/17/20 Subjective Update: Genevieve states she feels good, best in a long time. No chest pain, shortness of breath, anxiety. She had a formed soft stool. Gave her smaller portions on her tray for meals, she ate 100% and asked for seconds. Dr Sierra, bariatric surgeon at [facility] called last night to check on her, advised she should be getting 60-65 grams protein/day with 800-1000 beto/day. Dietary is meeting with her today to go over diet she can do at home. Telemetry has been in 60-80s overnight and this morning. Functional Status: Reports: Pain Controlled, Tolerating Diet, Ambulating, Urinating. Denies: New Symptoms - Patient Data Vitals - Most Recent: Last Vital Signs Temp 98.0 F 07/17/20 12:00 Pulse 79 07/17/20 12:00 Resp 18 07/17/20 12:00 BP 104/52 L 07/17/20 12:00 Pulse Ox 94 L 07/17/20 12:00 Weight - Most Recent: 141 lb 3 oz I&O - Last 24 hours: Intake & Output 07/17/20 07/17/20 07/17/20 06:59 14:59 22:59 Intake Total 200 Balance 200 Lab Results - Last 24 hrs: Laboratory Results - last 24 hr 07/17/20 07/17/20 Range/Units 06:30 06:30 Sodium 140 (135-145) mmol/L Potassium 3.9 (3.5-5.3) mmol/L Chloride 104 D (100-110) mmol/L Carbon Dioxide 27 (21-32) mmol/L BUN 18 (7-18) mg/dL Creatinine 0.8 (0.55-1.02) mg/dL Est Cr Clr Drug Dosing 44.31 mL/min Estimated GFR (MDRD) > 60 (>60) BUN/Creatinine Ratio 22.5 H (9-20) Glucose 76 L (80-116) mg/dL Calcium 8.5 L (8.6-10.2) mg/dL Total Bilirubin 0.5 (0.1-1.3) mg/dL AST 19 D (5-25) IU/L ALT 32 D (12-36) U/L Alkaline Phosphatase 88 (56-112) IU/L Total Protein 6.5 (6.0-8.0) g/dL Albumin 2.4 L (3.2-4.6) g/dL Globulin 4.1 g/dL Albumin/Globulin Ratio 0.6 TSH, Ultra Sensitive 2.09 (0.36-3.74) IU/mL Med Orders - Current: Current Medications Discontinued Medications Acetaminophen (Acetaminophen 325 Mg Tab) 650 mg PO Q4H PRN PRN Reason: Pain (Mild 1-3)/fever Last Admin: 07/14/20 01:25 Dose: 650 mg Documented by: Acetaminophen (Acetaminophen 325 Mg Tab) 650 mg PO Q8H PRN PRN Reason: Pain (Mild 1-3)/fever Hydrocodone Bitart/Acetaminophen (Acetaminophen/Hydrocodone 325-5 Mg Tab) 1 tab PO Q4H [facility] Last Admin: 07/17/20 12:29 Dose: 1 tab Documented by: Apixaban (Apixaban 5 Mg Tab) 5 mg PO BID [facility] Last Admin: 07/17/20 08:51 Dose: 5 mg Documented by: Buspirone HCl (Buspirone 5 Mg Tab) 2.5 mg PO BID [facility] Last Admin: 07/17/20 08:51 Dose: 2.5 mg Documented by: Diltiazem HCl (Diltiazem 25 Mg/5 Ml Sdv) 15 mg IVPUSH ONETIME ONE Stop: 07/14/20 09:19 Last Admin: 07/14/20 09:33 Dose: 15 mg Documented by: Diltiazem HCl (Diltiazem Ir 30 Mg Tab) 15 mg PO Q6H [facility] Last Admin: 07/15/20 05:52 Dose: 15 mg Documented by: Diltiazem HCl (Diltiazem Ir 30 Mg Tab) 15 mg PO ONETIME ONE Stop: 07/15/20 08:01 Last Admin: 07/15/20 08:44 Dose: 15 mg Documented by: Diltiazem HCl (Diltiazem Ir 30 Mg Tab) 30 mg PO Q6H [facility] Last Admin: 07/17/20 13:21 Dose: 30 mg Documented by: Diltiazem HCl (Diltiazem Ir 30 Mg Tab) 15 mg PO ONETIME ONE Stop: 07/16/20 14:01 Last Admin: 07/16/20 14:50 Dose: 15 mg Documented by: Diphenhydramine HCl (Diphenhydramine 50 Mg/Ml Sdv) 25 mg IVPUSH ONETIME ONE Stop: 07/14/20 09:46 Last Admin: 07/14/20 09:47 Dose: 25 mg Documented by: Potassium Chloride/Dextrose/Sod Cl (D5 1/2 Ns W/ 20 Meq/L Kcl) 1,000 mls @ 75 mls/hr IV ASDIRECTED [facility] Last Infusion: 07/14/20 04:11 Dose: Infused Documented by: Dextrose/Sodium Chloride (Dextrose 5%-1/2 Ns) 1,000 mls @ 75 mls/hr IV ASDIRECTED [facility] Last Infusion: 07/14/20 17:12 Dose: 75 mls/hr Documented by: Ketorolac Tromethamine (Ketorolac 30 Mg/Ml Sdv) 15 mg IVPUSH ONETIME ONE Stop: 07/13/20 20:24 Last Admin: 07/13/20 21:09 Dose: 15 mg Documented by: Lorazepam (Lorazepam 0.5 Mg Tab) 0.25 mg PO ONETIME ONE Stop: 07/15/20 13:17 Last Admin: 07/15/20 13:35 Dose: 0.25 mg Documented by: Lorazepam (Lorazepam 0.5 Mg Tab) 0.25 mg PO Q6H PRN PRN Reason: Anxiety Melatonin (Melatonin 3 Mg Tab) 3 mg PO BEDTIME [facility] Last Admin: 07/16/20 20:50 Dose: 3 mg Documented by: Metoprolol Succinate (Metoprolol Succinate 25 Mg Tab.Er) 12.5 mg PO ONETIME ONE Stop: 07/15/20 11:23 Last Admin: 07/15/20 11:29 Dose: 12.5 mg Documented by: Metoprolol Tartrate (Metoprolol Tartrate 5 Mg/5 Ml Sdv) 5 mg IVPUSH ONETIME ONE Stop: 07/13/20 20:20 Last Admin: 07/13/20 20:57 Dose: 5 mg Documented by: Metoprolol Tartrate (Metoprolol Tartrate 5 Mg/5 Ml Sdv) 2.5 mg IVPUSH Q4H PRN PRN Reason: Tachycardia Metoprolol Tartrate (Metoprolol Tartrate 25 Mg Tab) 12.5 mg PO Q12H [facility] Last Admin: 07/17/20 05:44 Dose: 12.5 mg Documented by: (Lansoprazole [ Lansoprazole] 15 Mg Capsule.Dr) *Ptom 15 mg PO DAILY [facility] Last Admin: 07/15/20 08:45 Dose: 15 mg Documented by: Pantoprazole Sodium (Pantoprazole 40 Mg Tab.Cr) 40 mg PO DAILY@0600 [facility] Last Admin: 07/17/20 05:45 Dose: 40 mg Documented by: Sertraline HCl (Sertraline 100 Mg Tab) 150 mg PO ONETIME ONE Stop: 07/14/20 16:01 Last Admin: 07/14/20 17:10 Dose: 150 mg Documented by: Sertraline HCl (Sertraline 100 Mg Tab *Ptom) 150 mg PO DAILY [facility] Last Admin: 07/15/20 11:34 Dose: 150 mg Documented by: Sertraline HCl (Sertraline 100 Mg Tab) 100 mg PO DAILY [facility] Last Admin: 07/17/20 08:51 Dose: 100 mg Documented by: Temazepam (Temazepam 15 Mg Cap) 30 mg PO BEDTIME [facility] Last Admin: 07/16/20 20:54 Dose: 30 mg Documented by: Tramadol HCl (Tramadol 50 Mg Tab) 100 mg PO ONETIME ONE Stop: 07/13/20 20:23 Last Admin: 07/13/20 21:07 Dose: 100 mg Documented by: Tramadol HCl (Tramadol 50 Mg Tab) 100 mg PO Q6H [facility] Last Admin: 07/14/20 09:09 Dose: 100 mg Documented by: - Exam General: Reports: Alert, Oriented, Cooperative, No Acute Distress Lungs: Reports: Clear to Auscultation, Normal Respiratory Effort Cardiovascular: Reports: Regular Rate, Irregular Rhythm GI/Abdominal Exam: Normal Bowel Sounds, Soft, No Distention, Guarding (e pigastric), Tender. No: Rigid, Rebound Extremities: No Pedal Edema, Pallor
== END 2020-07-17 15:50 | disposition home health service (06) | DRG 308 ==
LOC: FB.ED 17:29 → FB.MS 20:59 → OBSVTOIN 07-15 15:31
PROVIDERS: ADMIT Emergency Medicine; ATTEND Family Medicine
DX: I48.91 Unspecified atrial fibrillation (principal); R10.10 Upper abdominal pain, unspecified; I48.0 Paroxysmal atrial fibrillation; E43 Unspecified severe protein-calorie malnutrition; K92.1 Melena; G25.79 Other drug induced movement disorders; H04.123 Dry eye syndrome of bilateral lacrimal glands; G89.29 Other chronic pain; I11.0 Hypertensive heart disease with heart failure; I50.32 Chronic diastolic (congestive) heart failure; Z86.711 Personal history of pulmonary embolism; Z96.21 Cochlear implant status; Z87.11 Personal history of peptic ulcer disease; M19.90 Unspecified osteoarthritis, unspecified site; I10 Essential (primary) hypertension; R10.13 Epigastric pain; H91.90 Unspecified hearing loss, unspecified ear; K21.9 Gastro-esophageal reflux disease without esophagitis; F41.9 Anxiety disorder, unspecified; Z88.6 Allergy status to analgesic agent; F32.9 Major depressive disorder, single episode, unspecified; D64.9 Anemia, unspecified; M81.0 Age-related osteoporosis without current pathological fracture; G62.9 Polyneuropathy, unspecified; Z88.8 Allergy status to other drugs, medicaments and biological substances; Z79.01 Long term (current) use of anticoagulants; E66.9 Obesity, unspecified; R19.7 Diarrhea, unspecified; Z96.649 Presence of unspecified artificial hip joint; K91.2 Postsurgical malabsorption, not elsewhere classified; I95.9 Hypotension, unspecified; Z66 Do not resuscitate; E86.0 Dehydration; Z20.822 Contact with and (suspected) exposure to COVID-19; Z98.84 Bariatric surgery status; I25.2 Old myocardial infarction; Z98.49 Cataract extraction status, unspecified eye; Z79.899 Other long term (current) drug therapy; Z88.1 Allergy status to other antibiotic agents; Z88.0 Allergy status to penicillin; Z88.2 Allergy status to sulfonamides; Z88.5 Allergy status to narcotic agent; Z88.7 Allergy status to serum and vaccine; Z90.710 Acquired absence of both cervix and uterus; Z98.41 Cataract extraction status, right eye; Z98.42 Cataract extraction status, left eye; Z90.49 Acquired absence of other specified parts of digestive tract; Z68.27 Body mass index [BMI] 27.0-27.9, adult
CPT/HCPCS: 36415; 80053; 83690; 83735; 84443; 84484; 85025; 86140; 93005; 96374; 96375; 99285-25; A9270-GY; G0378; J1200; J1885; J3480; J3490; J7042; U0002

== ENCOUNTER 2020-08-10 15:25 | Emergency (ER) | payer MEDICARE ==
[2020-08-10] MEDS ORDERED: traMADol 50 MG Tab PO ONE (15:26)
--- NOTE | 2020-08-10 15:47 | EDM.PDOC ---
ED HPI GENERAL MEDICAL PROBLEM - General Stated Complaint: RAPID HEART RATE Time Seen by Provider: 08/10/20 15:43 Source of Information: Reports: Patient History Limitations: Reports: No Limitations - History of Present Illness INITIAL COMMENTS - FREE TEXT/NARRATIVE: 74-year-old female who reports that she was just at the nail for 10 days and was discharged on 08/08/2020 secondary to atrial fibrillation with RVR. She reports that her heart rate was controlled and she was told by the doctors at [facility] that if her heart rate consistently was above 130, she should go to the emergency department for evaluation. She does report today that the heart rate crept up to the 110 range and now has climbed to the 1:30 range and has stayed there. She really has had no chest pain but she does have her right sided abdominal pain which is always present but currently she is rating it as an 8/10. It is an ache with some sharp spikes. It is really unchanged from her previous pain. In addition to her A. fib with RVR she also has an intestinal fistula and that was also part of the reason that she was admitted to [facility] last week. She has had no fevers or chills. She does not feel short of breath at present. She is mainly here because she is concerned about her fast heart rate and also because she has no more pain medications and supposedly she is on oxycodone and tramadol for her pain. There are no other associated signs or symptoms. There are no other modifying factors. Onset: Today Duration: Getting Worse (Her fast heart rate is getting worse. Her abdominal pain as the same.) Location: Reports: Abdomen Quality: Reports: Ache, Sharp Severity: Moderate Improves with: Reports: None Worsens with: Reports: Other (Palpation), Movement Context: Reports: Other (As above.) Associated Symptoms: Reports: Nausea/Vomiting Treatments SACK CLEANER: Reports: Other (see below) (Taking her normal medications.) Chest Pain Score (Numeric/FACES): 8 - Related Data Allergies Allergy/AdvReac Type Severity Reaction Status Date / Time ciprofloxacin [From Cipro] Allergy Itching Verified 07/14/20 01:52 erythromycin base Allergy Hives Verified 07/14/20 01:52 [Erythromycin Base] ibuprofen Allergy Other Verified 07/14/20 01:52 Influenza Virus Vaccines Allergy Nausea and Verified 07/14/20 01:52 Vomiting ketorolac [From Toradol] Allergy Nausea and Verified 07/14/20 01:52 Vomiting NSAIDS (Non-Steroidal Allergy Other Verified 07/14/20 01:52 Anti-Inflamma Penicillins Allergy Hives Verified 07/14/20 01:52 Sulfa (Sulfonamide Allergy Hives Verified 07/14/20 01:52 Antibiotics) Tetracyclines Allergy Hives Verified 07/14/20 01:52 Home Meds: Home Meds Apixaban [Eliquis] 5 mg PO BID 07/07/20 [History] Lansoprazole 15 mg PO DAILY 07/07/20 [History] Metoprolol Tartrate [Lopressor] 12.5 mg PO Q12H 30 Days #60 tablet 07/17/20 [Rx] busPIRone [Buspar] 2.5 mg PO BID 30 Days #60 tablet 07/17/20 [Rx] oxyCODONE 5 mg PO Q3HR 08/10/20 [History] Past Medical History HEENT History: Reports: Cataract, Hard of Hearing, Other (See Below) Other HEENT History: Dry eyes. Left cochlear implant. Wears hearing aid. Cardiovascular History: Reports: Afib (paroxysmal(Apr 2019), last echo Apr 2019 at [place]), Arrhythmia, Heart Failure, Heart Murmur, Hypertension, [place], Other (See Below) Other Cardiovascular History: Aortic stenosis. Ascending aorta dilation. Diastolic dysfunction. Peripheral vascular disease. Respiratory History: Reports: PE, Pneumonia, Recurrent, SOB, Other (See Below) Other Respiratory History: Pulmonary nodule. Gastrointestinal History: Reports: GERD, PUD, Other (See Below) Other Gastrointestinal History: History of abdominal fistula. hx of bleeding ulcer, hx stomach abscess, hx exp lap Genitourinary History: Reports: UTI, Recurrent, Other (See Below) Other Genitourinary History: Cyst on right kidney. WARM IN History: Reports: Other WARM IN History: Musculoskeletal History: Reports: Arthritis, Fracture, Osteoporosis Other Musculoskeletal History: Lumbago. History of fracture right hip, left femur, left wrist. Neurological History: Reports: Neuropathy, Peripheral Other Neuro History: Bilateral peripheral neuropathy. Psychiatric History: Reports: Anxiety, Depression Other Psychiatric History: Insomnia. Endocrine/Metabolic History: Reports: Obesity/BMI 30+, Osteoporosis Other Endocrine/Metabolic History: Impaired glucose tolerance. Hematologic History: Reports: Anemia, Anticoagulation Therapy, Blood Transfusion(s) Dermatologic History: Reports: Cellulitis - Infectious Disease History Infectious Disease History: Reports: Measles, Mumps Other Infectious Disease History: Staph infection right ear, unsure if MRSA. - Past Surgical History Head Surgeries/Procedures: Reports: None HEENT Surgical History: Reports: Cataract Surgery, Oral Surgery Other HEENT Surgeries/Procedures: bilat cataract surgery, Cardiovascular Surgical History: Reports: None Respiratory Surgical History: Reports: None GI Surgical History: Reports: Appendectomy, Bariatric Procedure, Cholecystectomy, Colonoscopy, EGD, Other (See Below) Other GI Surgeries/Procedures: abd fistula repaired, 09/04/2019. splenectomy . Gastric bypass revision Female Surgical History: Reports: Hysterectomy, Salpingo-Oophorectomy, Tubal Ligation Endocrine Surgical History: Reports: None Neurological Surgical History: Reports: None Musculoskeletal Surgical History: Reports: Carpal Tunnel, Hip Replacement, ORIF, Shoulder Surgery Other Musculoskeletal Surgeries/Procedures:: bilat SHOULDER ARTHROPLASTY, ORIF to L wrist, pins removed, Social & Family History - Family History HEENT: Reports: Glaucoma, Macular Degeneration Cardiac: Reports: Hypertension Endocrine/Metabolic: Reports: Diabetes Mellitus, Type 3c Oncologic: Reports: Brain, Colon, Lung Other Oncologic Family History: Throat. Liver. Stomach. - Tobacco Use Tobacco Use Status *Q: Unknown Ever Used Tobacco (Nonsmoker.) - Caffeine Use Caffeine Use: Reports: None Other Caffeine Use: states that she takes powerade. - Alcohol Use Alcohol Use History: No - Living Situation & Occupation Living situation: Reports: Alone ED ROS GENERAL - Review of Systems Review Of Systems: See Below Constitutional: Reports: Fatigue HEENT: Reports: No Symptoms Respiratory: Reports: No Symptoms Cardiovascular: Reports: Other (Fast heart rate) Endocrine: Reports: Fatigue GI/Abdominal: Reports: Abdominal Pain, Nausea : Reports: No Symptoms Musculoskeletal: Reports: No Symptoms Skin: Reports: No Symptoms Psychiatric: Reports: No Symptoms Hematologic/Lymphatic: Reports: Easy Bruising (Chronically anticoagulated on Eliquis) Immunologic: Reports: No Symptoms ED EXAM, GENERAL - Physical Exam Exam: See Below Exam Limited By: No Limitations General Appearance: Alert, Moderate Distress, Cachetic (Somewhat), Other (No respiratory distress.) Eye Exam: Bilateral Eye: EOMI, Normal Inspection Ears: Normal External Exam, Hearing Loss Ear Exam: Bilateral Ear: Auricle Normal Nose: Normal Inspection, Normal Mucosa, No Blood Throat/Mouth: Normal Voice, No Airway Compromise, Other (Edentulous. Moist membranes.) Head: Atraumatic, Normocephalic Neck: Normal Inspection, Supple, Non-Tender, Full Range of Motion Respiratory/Chest: No Respiratory Distress, Lungs Clear, Normal Breath Sounds, No Accessory Muscle Use, Chest Non-Tender Cardiovascular: No Gallop, No Murmur, Tachycardia, Irregularly Irregular Peripheral Pulses: 2+: Radial (L), Radial (R) GI/Abdominal: Normal Bowel Sounds, Soft, No Mass, Tender (Tender on the right side.) Back Exam: Normal Inspection. No: CVA Tenderness (R), CVA Tenderness (L) Extremities: Normal Inspection, Normal Range of Motion, Non-Tender, No Pedal Edema, Normal Capillary Refill Neurological: Alert, Oriented, CN II-XII Intact, Normal Cognition, No Motor/Sensory Deficits Skin Exam: Warm, Dry, Intact, Normal Color, No Rash #1 Interpretation EKG Date: 08/10/20 Time: 15:39 Rhythm: A-Fib Rate (Beats/Min): 137 [place]: Normal P-Wave: Absent QRS: Other ST-T: Depressed (Diffusely. Possible repolarization abnormality secondary to rate.) QT: Prolonged (Prolonged QTc.) Comparison: Change From Previous EKG (Compared to an EKG performed on 07/15/2020, the patient's rate is increased. Now she has A. fib with RVR.) Course - Vital Signs Last Recorded V/S: Last Vital Signs Temp 36.7 C 08/10/20 15:25 Pulse 102 H 08/10/20 19:52 Resp 22 H 08/10/20 15:25 BP 104/69 08/10/20 19:52 Pulse Ox 95 08/10/20 15:25 - Orders/Labs/Meds Orders: Active Orders 24 hr Category Date Time Status EKG Documentation Completion [RC] ASDIRECTED Care 08/10/20 15:51 Active Chest 1V Frontal [CR] Stat Exams 08/10/20 15:50 Taken Potassium Chloride [Klor-Con] Med 08/10/20 16:45 Active 40 meq PO ASDIRECTED Sodium Chloride 0.9% [Saline Flush] Med 08/10/20 15:50 Active 10 ml FLUSH ASDIRECTED PRN Peripheral IV Insertion Adult [OM.PC] Routine Oth 08/10/20 15:50 Ordered EKG 12 Lead [EK] Routine Ther 08/10/20 15:50 Ordered Medication Orders Potassium Chloride (Potassium Chloride 20 Meq Packet) 40 meq PO ASDIRECTED ED Last Admin: 08/10/20 17:06 Dose: 40 meq Documented by: BRANDT Sodium Chloride (Sodium Chloride 0.9% 10 Ml Syringe) 10 ml FLUSH ASDIRECTED PRN PRN Reason: Keep Vein Open Labs: Laboratory Tests 08/10/20 08/10/20 08/10/20 Range/Units 16:00 16:00 16:00 WBC 4.8 (3.0-10.3) x10-3/uL RBC 3.79 (3.60-5.20) x10(6)uL Hgb 10.6 L (11.4-15.5) g/dL Hct 32.7 L (34.2-48.2) % MCV 86.1 (76.7-100.5) fL MCH 27.9 (23.9-33.9) pg MCHC 32.4 (31.9-34.8) g/dL RDW 19.8 H (12.3-16.5) % Plt Count 460 (151-488) x10(3)uL MPV 8.8 (7.1-12.4) fL Neut % (Auto) 57.0 (30.8-76.2) % Lymph % (Auto) 24.0 (18.4-52.1) % [place] % (Auto) 16.5 H (4.4-15.7) % Eos % (Auto) 0.8 (0.6-8.1) % Baso % (Auto) 1.7 H (0.2-1.5) % Neut # (Auto) 2.7 (1.5-6.3) x10-3/uL Lymph # (Auto) 1.2 (1.0-4.4) x10-3/uL [place] # (Auto) 0.8 (0.3-1.0) x10-3/uL Eos # (Auto) 0.0 (0.0-0.8) x10-3/uL Baso # (Auto) 0.1 (0.0-0.1) x10-3/uL Sodium 143 (135-145) mmol/L Potassium 3.1 L (3.5-5.3) mmol/L Chloride 104 (100-110) mmol/L Carbon Dioxide 29 (21-32) mmol/L BUN 5 L D (7-18) mg/dL Creatinine 0.7 (0.55-1.02) mg/dL Est Cr Clr Drug Dosing TNP Estimated GFR (MDRD) > 60 (>60) BUN/Creatinine Ratio 7.1 L (9-20) Glucose 133 H (80-116) mg/dL Calcium 8.1 L (8.6-10.2) mg/dL Magnesium 1.4 L (1.8-2.5) mg/dL Total Bilirubin 0.5 (0.1-1.3) mg/dL AST 22 D (5-25) IU/L ALT 27 D (12-36) U/L Alkaline Phosphatase 68 (56-112) IU/L Troponin I 10.8 (4.0-60.3) pg/mL Total Protein 6.9 (6.0-8.0) g/dL Albumin 2.9 L (3.2-4.6) g/dL Globulin 4.0 g/dL Albumin/Globulin Ratio 0.7 Meds: Medications Generic Name Dose Route Start Last Admin Trade Name Freq PRN Reason Stop Dose Admin Potassium Chloride 40 meq 08/10/20 16:45 08/10/20 17:06 Potassium Chloride 20 Meq Packet PO 40 meq ASDIRECTED ED Administration Sodium Chloride 10 ml 08/10/20 15:50 Sodium Chloride 0.9% 10 Ml Syringe FLUSH ASDIRECTED PRN Keep Vein Open Discontinued Medications Generic Name Dose Route Start Last Admin Trade Name Freq PRN Reason Stop Dose Admin Diltiazem HCl 25 mg 08/10/20 16:06 08/10/20 16:26 Diltiazem 25 Mg/5 Ml Sdv IVPUSH 08/10/20 16:07 25 mg ONETIME ONE Administration Magnesium Sulfate 2 gm/ Premix 50 mls @ 50 mls/hr 08/10/20 16:40 08/10/20 17:05 IV 08/10/20 17:39 50 mls/hr ONETIME ONE Administration Metoprolol Tartrate 25 mg 08/10/20 19:15 08/10/20 19:52 Metoprolol Tartrate 25 Mg Tab PO 08/10/20 19:16 25 mg ONETIME ONE Administration - Radiology Interpretation Free Text/Narrative:: Portable chest x-ray showed some haziness on the left CPA but really no change from chest x-ray on 05/21/2020. - Re-Assessments/Exams Free Text/Narrative Re-Assessment/Exam: 08/10/20 16:30: Patient was given 15 mg of diltiazem IV. The order was 425 mg but at this point the patient's blood pressure had dipped to the 90 systolic ra nge and her heart rate was in the 80s to 90s. We are continuing to watch her for this. Her blood tests that show potassium of 3.1 and a magnesium of 1.4. Otherwise they were reassuring/unchanged. 08/10/20 17:50: Her heart rate had no back up to the 110 to 1:30 range. She was given the additional 10 mg of diltiazem with good effect and that her back into the 90s. Her chest x-ray was unchanged from previous. She did have some haziness on the left but it was unchanged from a chest x-ray that was performed in May 2020. 08/10/20 19:10: The patient's heart rate is in the 90s but as I'm talking to her it goes up into the 110 to 130 range. She still is A. fib. Initially it was thought that the patient was on diltiazem 30 mg twice daily but apparently she is only on metoprolol 12.5 mg twice a day and is not on diltiazem. The patient continues with abdominal pain. She states that she is currently out of her tramadol and her oxycodone. I again have told her that these are medications that she would have to get through her primary provider. I am concerned about her persisting A. fib with RVR in I did offer admission to the patient to try to further control this and to continue with close cardiac monitoring and observation overnight. The patient at this point conveys to me that she is a DNR/DNI and she really does not want to be admitted she disposed to go home. She understands that this fast rhythm is dangerous for her and that it could potentially even lead to her but she would not want to stay in the hospital at this point. I we will have her increase her metoprolol to 25 mg twice daily and I will give her 25 mg metoprolol now. In addition I did consent to give her a take-home pack of tramadol 50 mg (#4) but I have advised her that she needs to follow-up with her primary doctor for any further pain management and she really needs to follow-up with them tomorrow or the next day in regard to her A. fib. I have also strongly advised her to come back to the emergency de partment if her heart rate gets above 1:30 and states her consistently again or if she develops chest pain or shortness of breath or unrelenting vomiting or any other concerning sign or symptom. Departure - Departure Time of Disposition: 19:30 Disposition: Home, Self-Care 01 Condition: Fair Clinical Impression: Atrial fibrillation with RVR, Hypokalemia, Hypomagnesemia, Chronic abdominal pain Instructions: Hypomagnesemia, Hypokalemia, Chronic Pain, Adult, Atrial Fibrillation, [id number] Referrals: Cas[place] Camarena MD [Primary Care Provider] - Forms: ED Department Discharge Additional Instructions: Your chest x-ray was unchanged from previous. Your EKG showed atrial fibrillation with a rapid rate. Your blood tests showed low magnesium and low potassium. You were given some additional magnesium and additional potassium in the emergency department. You were also given medications to slow your heart rate. This was somewhat successful. However, as we discussed just prior to your discharge from the emergency department, your heart rate was going back up into the 120 to 130 range. I did offer admission to this hospital but you refused thi s and wish to go home. You should increase your metoprolol to 25 mg by mouth twice daily. You should follow-up with your primary provider in the next 1-2 days. I did give you a take-home pack of tramadol and you will need to go through your primary doctor for any further pain medications. Back to the emergency department for persistent heart rate greater than 1:30, vomiting, severe weakness, chest pain, shortness of breath or any other concerning signs or symptoms. Sepsis Event Note (ED) - Focused Exam Vital Signs: Vital Signs Temp Pulse Pulse Resp BP BP Pulse Ox 08/10/20 19:52 102 H 104/69 08/10/20 15:25 36.7 C 131 H 22 H 125/81 95 - My Orders Last 24 Hours: My Active Orders 08/10/20 15:50 Chest 1V Frontal [CR] Stat Sodium Chloride 0.9% [Saline Flush] 10 ml FLUSH ASDIRECTED PRN Peripheral IV Insertion Adult [OM.PC] Routine EKG 12 Lead [EK] Routine 08/10/20 15:51 EKG Documentation Completion [RC] ASDIRECTED 08/10/20 16:45 Potassium Chloride [Klor-Con] 40 meq PO ASDIRECTED - Assessment/Plan Last 24 Hours: My Active Orders 08/10/20 15:50 Chest 1V Frontal [CR] Stat Sodium Chloride 0.9% [Saline Flush] 10 ml FLUSH ASDIRECTED PRN Peripheral IV Insertion Adult [OM.PC] Routine EKG 12 Lead [EK] Routine 08/10/20 15:51 EKG Documentation Completion [RC] ASDIRECTED 08/10/20 16:45 Potassium Chloride [Klor-Con] 40 meq PO ASDIRECTED
[2020-08-10] MEDS ORDERED: Sodium Chloride 0.9% 10 ML Syringe FLUSH PRN (15:50)
[2020-08-10] MEDS ORDERED: Diltiazem 25 MG/5 ML SDV IVPUSH ONE (16:06)
[2020-08-10] MEDS ORDERED: Magnesium Sulfate/Water 2 GM in Premix Bag 1 BAG IV ONE (16:40)
[2020-08-10] MEDS ORDERED: Potassium Chloride 20 MEQ Packet PO SCH (16:45)
[2020-08-10] MEDS ORDERED: Metoprolol Tartrate 25 MG Tab PO ONE (19:15)
[2020-08-10 19:55] VITALS: BP 104/69; PULSE 102
--- NOTE | 2020-08-11 10:54 | CR ---
INDICATION: Fast heart rate. CHEST, ONE VIEW: AP upright portable view of the chest 08/10/20 was compared with 05/21/20 and 05/18/20. The degree of CHF appears to be decreased significantly compared with the previous study. There may be some minimal residual. The infiltrations present bilaterally have largely resolved. A definite new acute process is not identified. The heart did not appear grossly enlarged but was prominent. The aorta is tortuous with calcification in the arch. Bilateral reversed shoulder arthroplasties are again noted. Overlying EKG leads are noted. IMPRESSION: Significant improvement in the appearance of the chest. There may be some residual mild or early CHF recurrence. MTDD
== END 2020-08-10 20:30 | disposition home or self-care (01) ==
LOC: FB.ED 15:25
DX: I48.91 Unspecified atrial fibrillation (principal); E87.6 Hypokalemia; E83.42 Hypomagnesemia; R10.9 Unspecified abdominal pain; K21.9 Gastro-esophageal reflux disease without esophagitis; G89.29 Other chronic pain; G62.9 Polyneuropathy, unspecified; Z88.1 Allergy status to other antibiotic agents; Z88.6 Allergy status to analgesic agent; Z88.7 Allergy status to serum and vaccine; Z88.8 Allergy status to other drugs, medicaments and biological substances; Z88.0 Allergy status to penicillin; Z88.2 Allergy status to sulfonamides; Z79.01 Long term (current) use of anticoagulants; Z79.899 Other long term (current) drug therapy; Z86.711 Personal history of pulmonary embolism
CPT/HCPCS: 36415; 71045; 80053; 83735; 84484; 85025; 93005; 96365; 96375; 99285; A9270; J3475; J3490

== ENCOUNTER 2020-08-24 11:22 | Emergency (ER) | payer MEDICARE ==
--- NOTE | 2020-08-24 11:54 | EDM.PDOC ---
ED HPI GENERAL MEDICAL PROBLEM - General Stated Complaint: a-fib Time Seen by Provider: 08/24/20 11:25 Source of Information: Reports: Patient History Limitations: Reports: No Limitations - History of Present Illness INITIAL COMMENTS - FREE TEXT/NARRATIVE: c/o elevated HR pt states she awoke and HR was 140, she took her usual morning meds, did not take any prn meds for afib,, was here in afib 2w ago, went to [place] who then flew her to [facility] where she gets here regular care pt states that [facility] has never done an ablation or electrocardioversion, "just gave me meds for my afib in my IV" she did have drains removed from abd at some point, which appears to be healing quite well, had a postop abscess an one juncture, no active GI problems by hx or PE today she says she takes 1/2 of a green pill and 1/2 of a blue pill in the morning she is vague when asked if she is supposed to take a prn med for AF with RVR was d/c'ed home from [facility] 3d ago PMH CV: htn, afib with RVR, hypomag ENDOCR serotonergic syndrome ORTHO: lumbar radiculopathy, DJD l-spine, s/p reverse arthroplasty of R shoulder, fx of t-spine, L wrist fx, ulnar neuropathy at wrist, impaired mobility and ADLs : UTI ENT: cochlear implant status GI: gastroenteritis, gastritis by endoscopy, entero-enteric fistula, h/o Sonu-en-Y gastric bypass, chr abd pain, s/p spenectomy, protein calorie malnutrition, s/p bariatric surgery MEDS CV: Eliquis, metoprolol 12.5 mg BID GI: PPI echo 02-19-19 mod-severe conc LVH, EF 65%, grade 2 LV diastrolic dysfunction, normal left atrial size, dilatation of ascending aorta 41.0 mm, nl RV size, mod pul artery htn, mod aortic stenosis, miod mitral regurg here in ED on 08-10-20, EKG then with afib with RVR, rate 137 labs 2 weeks ago: K 3.1, Bun/creat 5/0.7, Mg 1.4, wbc 4.8, hgb 10.6, plt 460 UC 3m ago E coli >100,000 sens all BNP 3m ago was 4382 ABG 3m ago with pH 7.4, pCO2 33, pO2 61 on RA with 92.2% Middle Back Pain Score (Numeric/FACES): 8 - Related Data Allergies Allergy/AdvReac Type Severity Reaction Status Date / Time ciprofloxacin [From Cipro] Allergy Itching Verified 07/14/20 01:52 erythromycin base Allergy Hives Verified 07/14/20 01:52 [Erythromycin Base] ibuprofen Allergy Other Verified 07/14/20 01:52 Influenza Virus Vaccines Allergy Nausea and Verified 07/14/20 01:52 Vomiting ketorolac [From Toradol] Allergy Nausea and Verified 07/14/20 01:52 Vomiting NSAIDS (Non-Steroidal Allergy Other Verified 07/14/20 01:52 Anti-Inflamma Penicillins Allergy Hives Verified 07/14/20 01:52 Sulfa (Sulfonamide Allergy Hives Verified 07/14/20 01:52 Antibiotics) Tetracyclines Allergy Hives Verified 07/14/20 01:52 Home Meds: Home Meds Apixaban [Eliquis] 5 mg PO BID 07/07/20 [History] Lansoprazole 15 mg PO DAILY 07/07/20 [History] busPIRone [Buspar] 2.5 mg PO BID 30 Days #60 tablet 07/17/20 [Rx] oxyCODONE 5 mg PO Q3HR 08/10/20 [History] Acetaminophen 500 mg PO Q6HR PRN 08/24/20 [History] Calcium Carbonate 400 mg PO BID 08/24/20 [History] Cholecalciferol (Vitamin D3) [D3 Dots] 50 mcg PO DAILY 08/24/20 [History] Cyanocobalamin (Vitamin B-12) [Cyanocobalamin Injection] 1,000 mcg IM ASDIRECTED 08/24/20 [History] DULoxetine HCl [Duloxetine HCl] 30 mg PO DAILY 08/24/20 [History] Lidocaine [Lidocaine Pain Relief] 5 % TRDERM DAILY 08/24/20 [History] Melatonin 3 mg PO BEDTIME 08/24/20 [History] Metoprolol Tartrate [Lopressor] 12.5 mg PO BID 08/24/20 [History] Multivitamin with Iron [Multivitamins with Iron] 1 tab PO DAILY 08/24/20 [History] Nitrofurantoin Monohyd/M-Cryst [Macrobid 100 mg Capsule] 100 mg PO BID #10 capsule 08/24/20 [Rx] Simethicone 80 mg PO QID 08/24/20 [History] Temazepam 30 mg PO BEDTIME 08/24/20 [History] traMADol [Ultram] 50 mg PO Q6HR 08/24/20 [History] Past Medical History - Past Health History Medical/Surgical History: Denies Medical/Surgical History HEENT History: Reports: Cataract, Hard of Hearing, Other (See Below) Other HEENT History: Dry eyes. Left cochlear implant. Wears hearing aid. Cardiovascular History: Reports: Afib, Arrhythmia, Heart Failure, Heart Murmur, Hypertension, [place], Other (See Below) Other Cardiovascular History: Aortic stenosis. Ascending aorta dilation. Diastolic dysfunction. Peripheral vascular disease. Respiratory History: Reports: PE, Pneumonia, Recurrent, SOB, Other (See Below) Other Respiratory History: Pulmonary nodule. Gastrointestinal History: Reports: GERD, PUD, Other (See Below) Other Gastrointestinal History: History of abdominal fistula. hx of bleeding ulcer, hx stomach abscess, hx exp lap Genitourinary History: Reports: UTI, Recurrent, Other (See Below) Other Genitourinary History: Cyst on right kidney. ROLL EXAMINER History: Reports: Other ROLL EXAMINER History: Musculoskeletal History: Reports: Arthritis, Fracture, Osteoporosis Other Musculoskeletal History: Lumbago. History of fracture right hip, left femu r, left wrist. Neurological History: Reports: Neuropathy, Peripheral Other Neuro History: Bilateral peripheral neuropathy. Psychiatric History: Reports: Anxiety, Depression Other Psychiatric History: Insomnia. Endocrine/Metabolic History: Reports: Obesity/BMI 30+, Osteoporosis Other Endocrine/Metabolic History: Impaired glucose tolerance. Hematologic History: Reports: Anemia, Anticoagulation Therapy, Blood Transfusion(s) Dermatologic History: Reports: Cellulitis - Infectious Disease History Infectious Disease History: Reports: Measles, Mumps Other Infectious Disease History: Staph infection right ear, unsure if MRSA. - Past Surgical History Head Surgeries/Procedures: Reports: None HEENT Surgical History: Reports: Cataract Surgery, Oral Surgery Other HEENT Surgeries/Procedures: bilat cataract surgery, Cardiovascular Surgical History: Reports: None Respiratory Surgical History: Reports: None GI Surgical History: Reports: Appendectomy, Bariatric Procedure, Ch olecystectomy, Colonoscopy, EGD, Other (See Below) Other GI Surgeries/Procedures: abd fistula repaired, 09/04/2019. 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 Gastric bypass revision Female Surgical History: Reports: Hysterectomy, Salpingo-Oophorectomy, Tubal Ligation Endocrine Surgical History: Reports: None Neurological Surgical History: Reports: None Musculoskeletal Surgical History: Reports: Carpal Tunnel, Hip Replacement, ORIF, Shoulder Surgery Other Musculoskeletal Surgeries/Procedures:: bilat SHOULDER ARTHROPLASTY, ORIF to L wrist, pins removed, Social & Family History - Family History Family Medical History: No Pertinent Family History HEENT: Reports: Glaucoma, Macular Degeneration Cardiac: Reports: Hypertension Endocrine/Metabolic: Reports: Diabetes Mellitus, Type 3c Oncologic: Reports: Brain, Colon, Lung Other Oncologic Family History: Throat. Liver. Stomach. - Caffeine Use Caffeine Use: Reports: None Other Caffeine Use: states that she takes powerade. - Living Situation & Occupation Living situation: Reports: Alone ED ROS GENERAL - Review of Systems Review Of Systems: See Below Constitutional: Reports: No Symptoms HEENT: Reports: No Symptoms Respiratory: Reports: No Symptoms Cardiovascular: Reports: Palpitations Endocrine: Reports: No Symptoms GI/Abdominal: Reports: No Symptoms : Reports: No Symptoms Musculoskeletal: Reports: No Symptoms Skin: Reports: No Symptoms Neurological: Reports: No Symptoms Psychiatric: Reports: No Symptoms Hematologic/Lymphatic: Reports: No Symptoms Immunologic: Reports: No Symptoms ED EXAM, CPR - Physical Exam Exam: See Below Limited By: No Limitations General Appearance: Alert, WD/WN, No Apparent Distress Ears: Hearing Grossly Normal Nose: Normal Inspection Throat/Mouth: Normal Inspection, Normal Voice, No Airway Compromise Head: Atraumatic, Normocephalic Respiratory Chest: Lungs Clear, Normal Breath Sounds, No Accessory Muscle Use Cardiovascular: Other (slight irreg, mild tachy, 2/6 YELENA at LSB, quiet precordium) GI/Abdominal Exam: Normal Bowel Sounds, Soft, Non-Tender, No Organomegaly, No Distention, Other (well healed upper midline scar, no mass, no subc swell, no red/warm, no tender) Extremities: Normal Inspection, Non-Tender, No Pedal Edema Skin Exam: Warm, Dry, Intact, Normal Color, No Rash #1 Interpretation EKG Date: 08/24/20 Time: 11:29 Rhythm: A-Fib [place]: Normal ST-T: Normal QT: Normal EKG Interpretation Comments: t-wave inversion, no evidence active ischemia Course - Vital Signs Last Recorded V/S: Last Vital Signs Temp 36.8 C 08/24/20 11:22 Pulse 111 H 08/24/20 11:22 Resp 20 08/24/20 11:22 BP 114/73 08/24/20 11:22 Pulse Ox 95 08/24/20 11:22 - Orders/Labs/Meds Orders: Active Orders 24 hr Category Date Time Status CULTURE URINE [RM] Stat Lab 08/24/20 14:01 Ordered EKG 12 Lead [EK] Routine Ther 08/24/20 11:40 Ordered Labs: Laboratory Tests 08/24/20 08/24/20 08/24/20 Range/Units 11:55 11:55 11:55 WBC 6.1 (3.0-10.3) x10-3/uL RBC 4.21 (3.60-5.20) x10(6)uL Hgb 11.4 (11.4-15.5) g/dL Hct 36.0 (34.2-48.2) % MCV 85.6 (76.7-100.5) fL MCH 27.1 (23.9-33.9) pg MCHC 31.7 L (31.9-34.8) g/dL RDW 19.6 H (12.3-16.5) % Plt Count 350 (151-488) x10(3)uL MPV 9.1 (7.1-12.4) fL Neut % (Auto) 62.4 (30.8-76.2) % Lymph % (Auto) 22.1 (18.4-52.1) % [place] % (Auto) 12.5 (4.4-15.7) % Eos % (Auto) 2.2 (0.6-8.1) % Baso % (Auto) 0.8 (0.2-1.5) % Neut # (Auto) 3.8 (1.5-6.3) x10-3/uL Lymph # (Auto) 1.4 (1.0-4.4) x10-3/uL [place] # (Auto) 0.8 (0.3-1.0) x10-3/uL Eos # (Auto) 0.1 (0.0-0.8) x10-3/uL Baso # (Auto) 0.0 (0.0-0.1) x10-3/uL Sodium 142 (135-145) mmol/L Potassium 4.3 D (3.5-5.3) mmol/L Chloride 104 (100-110) mmol/L Carbon Dioxide 31 (21-32) mmol/L BUN 12 (7-18) mg/dL Creatinine 0.8 (0.55-1.02) mg/dL Est Cr Clr Drug Dosing 44.31 mL/min Estimated GFR (MDRD) > 60 (>60) BUN/Creatinine Ratio 15.0 (9-20) Glucose 98 (80-116) mg/dL Calcium 8.7 (8.6-10.2) mg/dL Magnesium 1.8 (1.8-2.5) mg/dL Total Bilirubin 0.6 (0.1-1.3) mg/dL AST 38 H D (5-25) IU/L ALT 32 D (12-36) U/L Alkaline Phosphatase 90 (56-112) IU/L Troponin I 10.9 (4.0-60.3) pg/mL C-Reactive Protein 0.3 L (0.5-0.9) mg/dL Total Protein 7.2 (6.0-8.0) g/dL Albumin 3.2 (3.2-4.6) g/dL Globulin 4.0 g/dL Albumin/Globulin Ratio 0.8 Urine Color (YELLOW) Urine Appearance (CLEAR) Urine pH (5.0-6.5) Ur Specific Hector (1.010-1.025) Urine Protein (NEGATIVE) mg/dL Urine Glucose (UA) (NORMAL) mg/dL Urine Ketones (NEGATIVE) mg/dL Urine Occult Blood (NEGATIVE) Urine Nitrite (NEGATIVE) Urine Bilirubin (NEGATIVE) Urine Urobilinogen (NEGATIVE) mg/dL Ur Leukocyte Esterase (NEGATIVE) Urine RBC (0-5) Urine WBC (0-5) Ur Squamous Epith Cells (NS,R,O) Urine Bacteria (NS) 08/24/20 Range/Units 13:30 WBC (3.0-10.3) x10-3/uL RBC (3.60-5.20) x10(6)uL Hgb (11.4-15.5) g/dL Hct (34.2-48.2) % MCV (76.7-100.5) fL MCH (23.9-33.9) pg MCHC (31.9-34.8) g/dL RDW (12.3-16.5) % Plt Count (151-488) x10(3)uL MPV (7.1-12.4) fL Neut % (Auto) (30.8-76.2) % Lymph % (Auto) (18.4-52.1) % [place] % (Auto) (4.4-15.7) % Eos % (Auto) (0.6-8.1) % Baso % (Auto) (0.2-1.5) % Neut # (Auto) (1.5-6.3) x10-3/uL Lymph # (Auto) (1.0-4.4) x10-3/uL [place] # (Auto) (0.3-1.0) x10-3/uL Eos # (Auto) (0.0-0.8) x10-3/uL Baso # (Auto) (0.0-0.1) x10-3/uL Sodium (135-145) mmol/L Potassium (3.5-5.3) mmol/L Chloride (100-110) mmol/L Carbon Dioxide (21-32) mmol/L BUN (7-18) mg/dL Creatinine (0.55-1.02) mg/dL Est Cr Clr Drug Dosing mL/min Estimated GFR (MDRD) (>60) BUN/Creatinine Ratio (9-20) Glucose (80-116) mg/dL Calcium (8.6-10.2) mg/dL Magnesium (1.8-2.5) mg/dL Total Bilirubin (0.1-1.3) mg/dL AST (5-25) IU/L ALT (12-36) U/L Alkaline Phosphatase (56-112) IU/L Troponin I (4.0-60.3) pg/mL C-Reactive Protein (0.5-0.9) mg/dL Total Protein (6.0-8.0) g/dL Albumin (3.2-4.6) g/dL Globulin g/dL Albumin/Globulin Ratio Urine Color Yellow (YELLOW) Urine Appearance Slightly cloudy (CLEAR) Urine pH 8.0 H (5.0-6.5) Ur Specific [place]ector 1.010 (1.010-1.025) Urine Protein Negative (NEGATIVE) mg/dL Urine Glucose (UA) Normal (NORMAL) mg/dL Urine Ketones Negative (NEGATIVE) mg/dL Urine Occult Blood Negative (NEGATIVE) Urine Nitrite Negative (NEGATIVE) Urine Bilirubin Negative (NEGATIVE) Urine Urobilinogen Normal (NEGATIVE) mg/dL Ur Leukocyte Esterase Moderate H (NEGATIVE) Urine RBC 0-5 (0-5) Urine WBC 20-30 H (0-5) Ur Squamous Epith Cells Moderate H (NS,R,O) Urine Bacteria Few H (NS) Meds: Medications Discontinued Medications Generic Name Dose Route Start Last Admin Trade Name Freq PRN Reason Stop Dose Admin Diltiazem HCl 30 mg 08/24/20 12:53 08/24/20 13:09 Diltiazem Ir 30 Mg Tab PO 08/24/20 12:54 30 mg ONETIME ONE Administration - Re-Assessments/Exams Free Text/Narrative Re-Assessment/Exam: 08/24/20 14:14 labs neg, HR mainly 105 with BP 100/50 labs neg d/c papers reviewed from [facility] from 3d ago, pt had been given dilt 30 mg q6h prn when in hosp, not continued at home given one tab of dilt 30 mg PO here which pt says that she has at home pt monitored for 45 min after being given dil 30 mg PO here and there was not substantial change in HR or BP however, she is stable from a CV perspective and can continue to monitor BP and HR at home pt was extremely difficult to talk to, she was constantly changing her story and it is not entirely clear whether she is taking her meds as prescribed pt asked repeated for tramadol and was told that she would need to discuss that with her PCP does have an appointment in 2d with Dr Valdez, states she does not have a f/u apt with [facility] altho her d/c papers indicate that a video apt was planned in one week u/a meets criteria for UC which was ordered, she has allergies to 5 antbsx altho did have E coli sens to all form 4m ago, will give nitrofurantoin 100 bid for 5d to limit antbx exposure Departure - Departure Time of Disposition: 14:08 Disposition: Home, Self-Care 01 Condition: Good Clinical Impression: Atrial fibrillation, Urinary tract infection - Discharge Information *PRESCRIPTION DRUG MONITORING PROGRAM REVIEWED*: Not Applicable *COPY OF PRESCRIPTION DRUG MONITORING REPORT IN PATIENT MANUEL: Not Applicable Prescriptions: Nitrofurantoin Monohyd/M-Cryst [Macrobid 100 mg Capsule] 100 mg PO BID #10 capsule Instructions: Atrial Fibrillation, Urinary Tract Infection, Adult Additional Instructions: Continue the Eliquis 5 mg 1 tab 2 times a day. Continue the metoprolol 25 mg 1/2 tab 2 times a day. For heart rate over 110, take diltiazem 30 mg 1 tab every 6 hours (meals and bedtime) as needed. However, do not take the diltiazem if the systolic blood pressure is less than 100. Record your heart rate and blood pressure 4 times a day (meals and bedtime), write them down, and take them in with you when you see Dr Camarena in 2 days. For bladder infection, take nitrofurantoin 100 mg 1 tab 2 times a day for 5 days. Maintain fluids and nutrition. Sepsis Event Note (ED) - Focused Exam Vital Signs: Vital Signs Temp Pulse Resp BP Pulse Ox 08/24/20 11:22 36.8 C 111 H 20 114/73 95 - My Orders Last 24 Hours: My Active Orders 08/24/20 11:40 EKG 12 Lead [EK] Routine 08/24/20 14:01 CULTURE URINE [RM] Stat - Assessment/Plan Last 24 Hours: My Active Orders 08/24/20 11:40 EKG 12 Lead [EK] Routine 08/24/20 14:01 CULTURE URINE [RM] Stat
[2020-08-24 11:59] VITALS: BP 114/73; PULSE 111
[2020-08-24] MEDS ORDERED: Diltiazem IR 30 MG Tab PO ONE (12:53)
== END 2020-08-24 14:20 | disposition home or self-care (01) ==
LOC: FB.ED 11:22
DX: I48.91 Unspecified atrial fibrillation (principal); N39.0 Urinary tract infection, site not specified; I11.0 Hypertensive heart disease with heart failure; I50.9 Heart failure, unspecified; E66.9 Obesity, unspecified; I25.2 Old myocardial infarction; Z79.899 Other long term (current) drug therapy; Z68.30 Body mass index [BMI] 30.0-30.9, adult; Z79.01 Long term (current) use of anticoagulants; Z88.0 Allergy status to penicillin; Z88.1 Allergy status to other antibiotic agents; Z88.7 Allergy status to serum and vaccine; Z88.2 Allergy status to sulfonamides; Z88.8 Allergy status to other drugs, medicaments and biological substances
CPT/HCPCS: 36415; 80053; 81001; 83735; 84484; 85025; 86140; 87086; 93005; 99285; A9270

== ENCOUNTER 2020-08-24 22:58 | Emergency (ER) | payer MEDICARE ==
[2020-08-24] MEDS ORDERED: traMADol 50 MG Tab PO ONE (22:59)
--- NOTE | 2020-08-24 23:07 | EDM.PDOC ---
ED HPI GENERAL MEDICAL PROBLEM - General Stated Complaint: FALL Time Seen by Provider: 08/24/20 23:05 Source of Information: Reports: Patient History Limitations: Reports: No Limitations - History of Present Illness INITIAL COMMENTS - FREE TEXT/NARRATIVE: 74-year-old female who was in the emergency department earlier today per her reports secondary to her "atrial fibrillation being out of control". Said she was given a pill to take for this and she had a nap following this and at approximately 9 PM tonight she awakened from her nap and was feeling "pretty good" but when she was getting up to go to her bed states her feet got tangled up and she fell landing on her left side. She states she hit her head but there was no loss of consciousness. She does report pain in her left shoulder, left lateral chest, left abdomen and left flank and back. She has had no shortness of breath. She has no neck pain. She has no headache. There has been no nausea or vomiting. No hemoptysis. She reports the pain in her left shoulder and left side as a 9/10. Pain is worse with movement and with palpation. She is able to move her left shoulder fully despite the pain. She reports that the pain is a sharp and sore pain she presents to the emergency department via ambulance. She is chronically anticoagulated on Eliquis. There are no other associated signs or symptoms. There are no other modifying factors. Onset: Today (ADM) Duration: Constant Location: Reports: Head, Chest, Abdomen, Back, Upper Extremity, Left Quality: Reports: Sharp, Other (Sore) Severity: Moderate (to here.) Improves with: Reports: None Worsens with: Reports: Other (Palpation), Movement Context: Reports: Trauma Associated Symptoms: Reports: No Other Symptoms Treatments [employer]DER: Reports: Other (see below) (Nothing. "I am out of my tramadol") lefyt shoulder Pain Score (Numeric/FACES): 9 - Related Data Allergies Allergy/AdvReac Type Severity Reaction Status Date / Time ciprofloxacin [From Cipro] Allergy Itching Verified 07/14/20 01:52 erythromycin base Allergy Hives Verified 07/14/20 01:52 [Erythromycin Base] ibuprofen Allergy Other Verified 07/14/20 01:52 Influenza Virus Vaccines Allergy Nausea and Verified 07/14/20 01:52 Vomiting ketorolac [From Toradol] Allergy Nausea and Verified 07/14/20 01:52 Vomiting NSAIDS (Non-Steroidal Allergy Other Verified 07/14/20 01:52 Anti-Inflamma Penicillins Allergy Hives Verified 07/14/20 01:52 Sulfa (Sulfonamide Allergy Hives Verified 07/14/20 01:52 Antibiotics) Tetracyclines Allergy Hives Verified 07/14/20 01:52 Home Meds: Home Meds Apixaban [Eliquis] 5 mg PO BID 07/07/20 [History] Lansoprazole 15 mg PO DAILY 07/07/20 [History] busPIRone [Buspar] 2.5 mg PO BID 30 Days #60 tablet 07/17/20 [Rx] oxyCODONE 5 mg PO Q3HR 08/10/20 [History] Acetaminophen 500 mg PO Q6HR PRN 08/24/20 [History] Calcium Carbonate 400 mg PO BID 08/24/20 [History] Cholecalciferol (Vitamin D3) [D3 Dots] 50 mcg PO DAILY 08/24/20 [History] Cyanocobalamin (Vitamin B-12) [Cyanocobalamin Injection] 1,000 mcg IM ASDIRECTED 08/24/20 [History] DULoxetine HCl [Duloxetine HCl] 30 mg PO DAILY 08/24/20 [History] Lidocaine [Lidocaine Pain Relief] 5 % TRDERM DAILY 08/24/20 [History] Melatonin 3 mg PO BEDTIME 08/24/20 [History] Metoprolol Tartrate [Lopressor] 12.5 mg PO BID 08/24/20 [History] Multivitamin with Iron [Multivitamins with Iron] 1 tab PO DAILY 08/24/20 [History] Nitrofurantoin Monohyd/M-Cryst [Macrobid 100 mg Capsule] 100 mg PO BID #10 capsule 08/24/20 [Rx] Simethicone 80 mg PO QID 08/24/20 [History] Temazepam 30 mg PO BEDTIME 08/24/20 [History] traMADol [Ultram] 50 mg PO Q6HR 08/24/20 [History] Past Medical History HEENT History: Reports: Cataract, Hard of Hearing, Other (See Below) Other HEENT History: Dry eyes. Left cochlear implant. Wears hearing aid. Cardiovascular History: Reports: Afib, Arrhythmia, Heart Failure, Heart Murmur, Hypertension, AL, Other (See Below) Other Cardiovascular History: Aortic stenosis. Ascending aorta dilation. Diastolic dysfunction. Peripheral vascular disease. Respiratory History: Reports: PE, Pneumonia, Recurrent, SOB, Other (See Below) Other Respiratory History: Pulmonary nodule. Gastrointestinal History: Reports: GERD, PUD, Other (See Below) Other Gastrointestinal History: History of abdominal fistula. hx of bleeding ulcer, hx stomach abscess, hx exp lap Genitourinary History: Reports: UTI, Recurrent, Other (See Below) Other Genitourinary History: Cyst on right kidney. Other DIRECTORY COMPILER History: Musculoskeletal History: Reports: Arthritis, Fracture, Osteoporosis Other Musculoskeletal History: Lumbago. History of fracture right hip, left femur, left wrist. Neurological History: Reports: Neuropathy, Peripheral Other Neuro History: Bilateral peripheral neuropathy. Psychiatric History: Reports: Anxiety, Depression Other Psychiatric History: Insomnia. Endocrine/Metabolic History: Reports: Obesity/BMI 30+, Osteoporosis Other Endocrine/Metabolic History: Impaired glucose tolerance. Hematologic History: Reports: Anemia, Anticoagulation Therapy, Blood Transfusion(s) Dermatologic History: Reports: Cellulitis - Infectious Disease History Infectious Disease History: Reports: Measles, Mumps Other Infectious Disease History: Staph infection right ear, unsure if MRSA. - Past Surgical History HEENT Surgical History: Reports: Cataract Surgery, Oral Surgery Other HEENT Surgeries/Procedures: bilat cataract surgery, GI Surgical History: Reports: Appendectomy, Bariatric Procedure, Cholecystectomy, Colonoscopy, EGD, Other (See Below) Other GI Surgeries/Procedures: abd fistula repaired, 09/04/2019. splenectomy . Gastric bypass revision Female Surgical History: Reports: Hysterectomy, Salpingo-Oophorectomy, Tubal Ligation Musculoskeletal Surgical History: Reports: Carpal Tunnel, Hip Replacement, ORIF, Shoulder Surgery Other Musculoskeletal Surgeries/Procedures:: bilat SHOULDER ARTHROPLASTY, ORIF to L wrist, pins removed, Social & Family History - Family History HEENT: Reports: Glaucoma, Macular Degeneration Cardiac: Reports: Hypertension Endocrine/Metabolic: Reports: Diabetes Mellitus, Type 3c Oncologic: Reports: Brain, Colon, Lung Other Oncologic Family History: Throat. Liver. Stomach. - Tobacco Use Tobacco Use Status *Q: Unknown Ever Used Tobacco (Nonsmoker.) - Caffeine Use Caffeine Use: Reports: None Other Caffeine Use: states that she takes powerade. - Alcohol Use Alcohol Use History: No - Living Situation & Occupation Living situation: Reports: Alone Review of Systems - Review of Systems Review Of Systems: See Below Constitutional: Denies: Chills, Fever Eyes: Denies: Pain, Vision Change Ears: Denies: Dizziness, Pain Nose: Denies: Congestion, Epistaxis Mouth/Throat: Denies: Bleeding, Pain Respiratory: Reports: Pleuritic Chest Pain (On left.). Denies: Shortness of Breath Cardiovascular: Reports: Chest Pain (On left. As above.). Denies: Syncope GI/Abdominal: Reports: Abdominal Pain. Denies: Nausea, Vomiting Genitourinary: Denies: Dysuria, Hematuria Musculoskeletal: Reports: Shoulder Pain. Denies: Neck Pain Skin: Denies: Bruising, Wound Neurological: Denies: Dizziness, Headache ED EXAM, GENERAL - Physical Exam Exam: See Below Exam Limited By: No Limitations General Appearance: Alert, Mild Distress, Obese, Other (Nontoxic appearing. No respiratory distress.) Eye Exam: Bilateral Eye: EOMI, Normal Inspection (Sclera are anicteric) Ears: Normal External Exam, Hearing Loss (Chronic.) Ear Exam: Bilateral Ear: Auricle Normal Nose: Normal Inspection, Normal Mucosa, No Blood Throat/Mouth: Normal Voice, No Airway Compromise, Other (Edentulous. Moist membranes.) Head: Atraumatic, Normocephalic Neck: Normal Inspection, Supple, Non-Tender, Full Range of Motion Respiratory/Chest: No Respiratory Distress, Lungs Clear, Normal Breath Sounds, No Accessory Muscle Use, Other (Tender over left lateral chest. No crepitus. No subcutaneous emphysema.) Cardiovascular: Normal Peripheral Pulses, Irregularly Irregular (With variable rate.) Peripheral Pulses: 2+: Radial (L), Radial (R), Dorsalis Pedis (L), Dorsalis Pedis (R) GI/Abdominal: Normal Bowel Sounds, Soft, Tender (Diffusely. But she does have tenderness along her left flank which is where her trauma occurred.) Back Exam: Normal Inspection, CVA Tenderness (L). No: Muscle Spasm Extremities: Normal Inspection, Normal Range of Motion, No Pedal Edema, Normal Capillary Refill, Other (Tender to palpation over left shoulder but there is no deformity or crepitus noted.) Neurological: Alert, Oriented, Normal Cognition, No Motor/Sensory Deficits Psychiatric: Normal Affect Skin Exam: Warm, Dry, Intact, Normal Color, No Rash Course - Vital Signs Last Recorded V/S: Last Vital Signs Temp 36.8 C 08/24/20 23:00 Pulse 72 08/24/20 23:00 Resp 17 08/24/20 23:00 BP 110/79 08/24/20 23:00 Pulse Ox 95 08/24/20 23:00 - Orders/Labs/Meds Orders: Active Orders 24 hr Category Date Time Status Abdomen Pelvis wo Cont [CT] Stat Exams 08/24/20 23:40 Taken Chest 1V Frontal [CR] Stat Exams 08/24/20 23:40 Taken Head wo Cont [CT] Stat Exams 08/24/20 23:40 Taken Shoulder Comp Lt [CR] Stat Exams 08/25/20 00:05 Taken Labs: Laboratory Tests 08/24/20 08/24/20 08/24/20 Range/Units 23:55 23:55 23:55 WBC 7.3 (3.0-10.3) x10-3/uL RBC 4.27 (3.60-5.20) x10(6)uL Hgb 11.5 (11.4-15.5) g/dL Hct 36.5 (34.2-48.2) % MCV 85.5 (76.7-100.5) fL MCH 26.9 (23.9-33.9) pg MCHC 31.5 L (31.9-34.8) g/dL RDW 19.3 H (12.3-16.5) % Plt Count 347 (151-488) x10(3)uL MPV 9.1 (7.1-12.4) fL Add Manual Diff Yes Neutrophils % (Manual) 62 (46-82) % Band Neutrophils % 4 (0-6) % Lymphocytes % (Manual) 26 (13-37) % Monocytes % (Manual) 8 (4-12) % Sodium 142 (135-145) mmol/L Potassium 4.1 (3.5-5.3) mmol/L Chloride 104 (100-110) mmol/L Carbon Dioxide 28 (21-32) mmol/L BUN 12 (7-18) mg/dL Creatinine 0.8 (0.55-1.02) mg/dL Est Cr Clr Drug Dosing TNP Estimated GFR (MDRD) > 60 (>60) BUN/Creatinine Ratio 15.0 (9-20) Glucose 99 (80-116) mg/dL Calcium 8.9 (8.6-10.2) mg/dL Total Bilirubin 0.6 (0.1-1.3) mg/dL AST 37 H (5-25) IU/L ALT 32 (12-36) U/L Alkaline Phosphatase 91 (56-112) IU/L Total Protein 7.4 (6.0-8.0) g/dL Albumin 3.2 (3.2-4.6) g/dL Globulin 4.2 g/dL Albumin/Globulin Ratio 0.8 Lipase 13 L (73-393) U/L - Radiology Interpretation Free Text/Narrative:: Portable chest x-ray shows no acute disease. Left shoulder x-ray shows no acute fracture and no dislocation. CT scan of the head showed no evidence of acute infarction, and cranial hemorrhage or mass effect seen per the [facility] radiologist. CT scan of the abdomen and pelvis was read as unremarkable with no CT correlated with the patient's symptoms seen. This was per the [facility] radiologist. - Re-Assessments/Exams Free Text/Narrative Re-Assessment/Exam: 08/25/20 01:10: All of the patient's blood tests are reassuring the CT scan of her head showed no bleeding and no fracture. Can't of the abdomen and pelvis showed no acute abnormality. The x-ray of the chest and the left shoulder showed no fractures or any other acute abnormality. The patient's pulse is at times up into the 130s to 140s but she has not taken her medication yet tonight. She actually was able to get up to the bathroom and did that well with very little assistance. She does not want to stay at the hospital. She wants to go home. I have definitely told her to take the medication when she gets home for her atrial fibrillation. I have also given her a take-home pack of tramadol. Precautions and reasons for return to the emergency department were discussed with the patient will she was in the emergency department either detailed in her discharge instructions. She is to follow-up with her primary provider on Tuesday of this coming week. Departure - Departure Time of Disposition: 01:15 Disposition: Home, Self-Care 01 Condition: Fair (Stable.) Clinical Impression: Chronic anticoagulation, Fall on same level from tripping Head contusion Qualifiers: Encounter type: initial encounter Contusion of head detail: scalp Qualified Code(s): S00.03XA - Contusion of scalp, initial encounter Contusion of left chest wall Qualifiers: Encounter type: initial encounter Qualified Code(s): S20.212A - Contusion of left front wall of thorax, initial encounter Contusion of flank and back Qualifiers: Encounter type: initial encounter Qualified Code(s): S30.1XXA - Contusion of abdominal wall, initial encounter Contusion of left shoulder Qualifiers: Encounter type: initial encounter Qualified Code(s): S40.012A - Contusion of left shoulder, initial encounter Atrial fibrillation Qualifiers: Atrial fibrillation type: longstanding persistent Qualified Code(s): I48.11 - Longstanding persistent atrial fibrillation - Discharge Information Instructions: Fall Prevention in the Home, Adult, [id number], Contusion, [id number], Pain Medicine Instructions, [id number] Referrals: Casa Camarena MD [Primary Care Provider] - Additional Instructions: Your blood work was reassuring. Your left shoulder x-ray showed no fracture or dislocation. Your chest x-ray showed no definite fracture or lung collapse. The CT scan of your head showed no fracture or bleeding. The CT scan of your abdomen and pelvis also showed no bleeding, fracture or any new abnormality that would explain your pain. You are still in atrial fibrillation and your heart rate did get up into the 130 to 140 range. You need to take your heart medicine for your atrial fibrillation when you get home. Follow-up with your primary provider as scheduled on 08/26/2020. You were given a take-home pack of tramadol. You'll need to go through your primary doctor for any further pain medications. Back to the emergency department for shortness of breath, coughing up blood, or weakness or any other concerning signs or symptoms. Sepsis Event Note (ED) - Focused Exam Vital Signs: Vital Signs Temp Pulse Resp BP Pulse Ox 08/24/20 23:00 36.8 C 72 17 110/79 95 - My Orders Last 24 Hours: My Active Orders 08/24/20 23:40 Abdomen Pelvis wo Cont [CT] Stat Chest 1V Frontal [CR] Stat Head wo Cont [CT] Stat 08/25/20 00:05 Shoulder Comp Lt [CR] Stat - Assessment/Plan Last 24 Hours: My Active Orders 08/24/20 23:40 Abdomen Pelvis wo Cont [CT] Stat Chest 1V Frontal [CR] Stat Head wo Cont [CT] Stat 08/25/20 00:05 Shoulder Comp Lt [CR] Stat
[2020-08-25 03:08] VITALS: BP 99/69; PULSE 122
--- NOTE | 2020-08-25 11:19 | CR ---
INDICATION: Fall with left chest injury. CHEST ONE VIEW: AP portable upright view of the chest 08/25/20 was compared with 08/10/20 and 05/21/20. The heart does not appear grossly enlarged, but is prominent - likely at the upper limits of normal in size or mildly enlarged. Overlying EKG leads are noted. 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 A definite active infiltrate or effusion was not identified with pulmonary markings similar to the previous study. No definite contusion, pneumothorax or effusion was seen. IMPRESSION: No acute process. MTDD
--- NOTE | 2020-08-25 11:32 | CR ---
INDICATION: Fall with injury to left shoulder. [id number] LEFT SHOULDER: Three views of the left shoulder were obtained revealing a reverse shoulder arthroplasty which remains in good position and alignment compared with 09/28/18 left shoulder x-ray. There is again noted tapering of the distal clavicle which may be on the basis of osteoacrolysis and probable previous injury, An acute fracture or dislocation was not identified. There are some calcifications inferior to the glenohumeral joint which likely represent periosteal new borne formation that is postsurgical. Adjacent robs appear to be intact. IMPRESSION: 1, No acute fracture or dislocation identified. 2. Stable appearing reverse shoulder arthroplasty. 3. Osteoacrolysis distal clavicle, unchanged. MTDD
== END 2020-08-25 01:45 | disposition home or self-care (01) ==
LOC: FB.ED 22:58
DX: S00.03XA Contusion of scalp, initial encounter (principal); S20.212A Contusion of left front wall of thorax, initial encounter; S30.1XXA Contusion of abdominal wall, initial encounter; S40.012A Contusion of left shoulder, initial encounter; I48.11 Longstanding persistent atrial fibrillation; D68.9 Coagulation defect, unspecified; I11.0 Hypertensive heart disease with heart failure; I50.9 Heart failure, unspecified; I25.2 Old myocardial infarction; K21.9 Gastro-esophageal reflux disease without esophagitis; E66.9 Obesity, unspecified; Z68.30 Body mass index [BMI] 30.0-30.9, adult; W01.0XXA Fall on same level from slipping, tripping and stumbling without subsequent striking against object, initial encounter
CPT/HCPCS: 36415; 70450; 71045; 73030; 74176; 80053; 83690; 85025; 99284; A9270

== ENCOUNTER 2020-08-31 12:53 | Emergency (ER) | payer MEDICARE ==
[2020-08-31] MEDS ORDERED: Promethazine 25 MG Tab PO ONE (12:54)
--- NOTE | 2020-08-31 13:15 | EDM.PDOC ---
ED HPI GENERAL MEDICAL PROBLEM - General Stated Complaint: ABD PAIN. VOMITING. Time Seen by Provider: 08/31/20 13:10 Source of Information: Reports: Patient History Limitations: Reports: No Limitations - History of Present Illness INITIAL COMMENTS - FREE TEXT/NARRATIVE: 74-year-old female with history of chronic abdominal issues with chronic abdominal pain and recent surgery at the [facility] with multiple complications following the surgery and she was critically ill for quite some time. She presents today because she is having ongoing abdominal pain that she states is now left-sided in addition to her right sided abdominal pain. He reports she has sharp pains that are stabbing and like knives but also cramping pain and she has had vomiting with emesis 2 this morning. She was able to drink some Gatorade after her last emesis and she has had no further vomiting since then. She also has been having diarrhea. She is rating her pain as a 9/10. She does tell me that she is out of her tramadol. She further tells me that when she followed up with Dr. Johnson following her emergency department visit for her fall on 08/24/2020, she was only given 5 additional tramadol tablets. She tells me that she has run of of these medications last week. She has had no fevers or chills. She is breathing normally. No palpitations or feelings of fast heart rate she was able to keep her medications down this morning. She is having no chest pain or shortness of breath at present. There are no other associated signs or symptoms. There are no other modifying factors. 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: Reports: Other (see below) (Nothing.) Abdominal Pain Score (Numeric/FACES): 4 - Related Data Allergies Allergy/AdvReac Type Severity Reaction Status Date / Time ciprofloxacin [From Cipro] Allergy Itching Verified 07/14/20 01:52 erythromycin base Allergy Hives Verified 07/14/20 01:52 [Erythromycin Base] ibuprofen Allergy Other Verified 07/14/20 01:52 Influenza Virus Vaccines Allergy Nausea and Verified 07/14/20 01:52 Vomiting ketorolac [From Toradol] Allergy Nausea and Verified 07/14/20 01:52 Vomiting NSAIDS (Non-Steroidal Allergy Other Verified 07/14/20 01:52 Anti-Inflamma Penicillins Allergy Hives Verified 07/14/20 01:52 Sulfa (Sulfonamide Allergy Hives Verified 07/14/20 01:52 Antibiotics) Tetracyclines Allergy Hives Verified 07/14/20 01:52 Home Meds: Home Meds Apixaban [Eliquis] 5 mg PO BID 07/07/20 [History] Lansoprazole 15 mg PO DAILY 07/07/20 [History] busPIRone [Buspar] 2.5 mg PO BID 30 Days #60 tablet 07/17/20 [Rx] oxyCODONE 5 mg PO Q3HR 08/10/20 [History] Acetaminophen 500 mg PO Q6HR PRN 08/24/20 [History] Calcium Carbonate 400 mg PO BID 08/24/20 [History] Cholecalciferol (Vitamin D3) [D3 Dots] 50 mcg PO DAILY 08/24/20 [History] Cyanocobalamin (Vitamin B-12) [Cyanocobalamin Injection] 1,000 mcg IM ASDIRECTED 08/24/20 [History] DULoxetine HCl [Duloxetine HCl] 30 mg PO DAILY 08/24/20 [History] Lidocaine [Lidocaine Pain Relief] 5 % TRDERM DAILY 08/24/20 [History] Melatonin 3 mg PO BEDTIME 08/24/20 [History] Metoprolol Tartrate [Lopressor] 12.5 mg PO BID 08/24/20 [History] Multivitamin with Iron [Multivitamins with Iron] 1 tab PO DAILY 08/24/20 [History] Nitrofurantoin Monohyd/M-Cryst [Macrobid 100 mg Capsule] 100 mg PO BID #10 capsule 08/24/20 [Rx] Simethicone 80 mg PO QID 08/24/20 [History] Temazepam 30 mg PO BEDTIME 08/24/20 [History] traMADol [Ultram] 50 mg PO Q6HR 08/24/20 [History] Promethazine [Phenergan] 25 mg PO Q6H PRN #16 tab 08/31/20 [Rx] Past Medical History HEENT History: Reports: Cataract, Hard of Hearing, Other (See Below) Other HEENT History: Dry eyes. Left cochlear implant. Wears hearing aid. Cardiovascular History: Reports: Afib, Arrhythmia, Heart Failure, Heart Murmur, Hypertension, PR, Other (See Below) Other Cardiovascular History: Aortic stenosis. Ascending aorta dilation. Diastolic dysfunction. Peripheral vascular disease. Respiratory History: Reports: PE, Pneumonia, Recurrent, SOB, Other (See Below) Other Respiratory History: Pulmonary nodule. Gastrointestinal History: Reports: GERD, PUD, Other (See Below) Other Gastrointestinal History: History of abdominal fistula. hx of bleeding ulcer, hx stomach abscess, hx exp lap Genitourinary History: Reports: UTI, Recurrent, Other (See Below) Other Genitourinary History: Cyst on right kidney. Other GREEN INSPECTOR History: Musculoskeletal History: Reports: Arthritis, Fracture, Osteoporosis Other Musculoskeletal History: Lumbago. History of fracture right hip, left femur, left wrist. Neurological History: Reports: Neuropathy, Peripheral Other Neuro History: Bilateral peripheral neuropathy. Psychiatric History: Reports: Anxiety, Depression Other Psychiatric History: Insomnia. Endocrine/Metabolic History: Reports: Obesity/BMI 30+, Osteoporosis Other Endocrine/Metabolic History: Impaired glucose tolerance. Hematologic History: Reports: Anemia, Anticoagulation Therapy, Blood Transfusion(s) Dermatologic History: Reports: Cellulitis - Infectious Disease History Infectious Disease History: Reports: Measles, Mumps Other Infectious Disease History: Staph infection right ear, unsure if MRSA. - Past Surgical History HEENT Surgical History: Reports: Cataract Surgery, Oral Surgery Other HEENT Surgeries/Procedures: bilat cataract surgery, GI Surgical History: Reports: Appendectomy, Bariatric Procedure, Cholecystec mariano, Colonoscopy, EGD, Other (See Below) Other GI Surgeries/Procedures: abd fistula repaired, 09/04/2019. splenectomy . Gastric bypass revision Female Surgical History: Reports: Hysterectomy, Salpingo-Oophorectomy, Tubal Ligation Musculoskeletal Surgical History: Reports: Carpal Tunnel, Hip Replacement, ORIF, Shoulder Surgery Other Musculoskeletal Surgeries/Procedures:: bilat SHOULDER ARTHROPLASTY, ORIF to L wrist, pins removed, Social & Family History - Family History HEENT: Reports: Glaucoma, Macular Degeneration Cardiac: Reports: Hypertension Endocrine/Metabolic: Reports: Diabetes Mellitus, Type 3c Oncologic: Reports: Brain, Colon, Lung Other Oncologic Family History: Throat. Liver. Stomach. - Tobacco Use Tobacco Use Status *Q: Never Tobacco User - Caffeine Use Caffeine Use: Reports: None Other Caffeine Use: states that she takes powerade. - Alcohol Use Alcohol Use History: No - Living Situation & Occupation Living situation: Reports: Alone ED ROS GENERAL - Review of Systems Review Of Systems: See Below Constitutional: Reports: Weakness, Fatigue. Denies: Fever, Chills HEENT: Reports: Hearing Loss (Chronic). Denies: Throat Pain Respiratory: Denies: Shortness of Breath, Cough Cardiovascular: Denies: Chest Pain, Lightheadedness Endocrine: Denies: Polydypsia, Polyuria GI/Abdominal: Reports: Abdominal Pain, Diarrhea, Nausea, Vomiting : Denies: Dysuria, Frequency Musculoskeletal: Denies: Shoulder Pain, Back Pain Skin: Denies: Diaphoresis, Rash Neurological: Denies: Confusion, Headache Hematologic/Lymphatic: Reports: Easy Bleeding, Easy Bruising ED EXAM, GI/ABD - Physical Exam Exam: See Below Exam Limited By: No Limitations General Appearance: Alert, Moderate Distress (Appears to be in some pain.), Other (She does not appear toxic.) Eyes: Bilateral: Normal Appearance, EOMI Ears: Normal External Exam, Hearing Loss (Chronic) Nose: Normal Inspection, Normal Mucosa, No Blood Throat/Mouth: Normal Voice, No Airway Compromise, Other (Edentulous. Pharynx is moist.) Head: Atraumatic, Normocephalic Neck: Normal Inspection, Supple, Non-Tender, Full Range of Motion Respiratory/Chest: No Respiratory Distress, Lungs Clear, Normal Breath Sounds, No Accessory Muscle Use, Chest Non-Tender Cardiovascular: Normal Peripheral Pulses, Irregularly Irregular, Other (Controlled rate.) GI/Abdominal Exam: Normal Bowel Sounds, Soft, No Distention, No Mass, Tender (Mild diffuse tenderness. No rigidity) Back Exam: Normal Inspection, Full Range of Motion. No: CVA Tenderness (R), CVA Tenderness (L) Extremities: Normal Inspection, Normal Range of Motion, Non-Tender, No Pedal Edema, Normal Capillary Refill Neurological: Alert, Oriented, CN II-XII Intact, Normal Cognition, No Motor/Sensory Deficits Skin Exam: Warm, Dry, Intact, Normal Color, No Rash Course - Vital Signs Last Recorded V/S: Last Vital Signs Temp 37.4 C 08/31/20 12:53 Pulse 58 L 08/31/20 12:53 Resp 18 08/31/20 12:53 BP 108/41 L 08/31/20 12:53 Pulse Ox 99 08/31/20 12:53 - Orders/Labs/Meds Orders: Active Orders 24 hr Category Date Time Status Promethazine [Phenergan] Med 08/31/20 13:25 Once 25 mg IM ONETIME ONE Promethazine [Phenergan] Med 08/31/20 14:01 Once 25 mg IM ONETIME ONE Promethazine [Phenergan] Med 08/31/20 13:53 Ordered 25 mg PO Q6H PRN Promethazine [Phenergan] Med 08/31/20 14:08 Active 25 mg PO Q6H PRN Medication Orders Promethazine HCl (Promethazine 25 Mg Tab) 25 mg PO Q6H PRN PRN Reason: Nausea Meds: Medications Generic Name Dose Route Start Last Admin Trade Name Freq PRN Reason Stop Dose Admin Promethazine HCl 25 mg 08/31/20 14:08 Promethazine 25 Mg Tab PO Q6H PRN Nausea Discontinued Medications Generic Name Dose Route Start Last Admin Trade Name Freq PRN Reason Stop Dose Admin Promethazine HCl 25 mg 08/31/20 14:15 08/31/20 14:12 Promethazine 25 Mg/Ml Sdv IM 08/31/20 14:16 25 mg ONETIME ONE Administration - Re-Assessments/Exams Free Text/Narrative Re-Assessment/Exam: 08/31/20 13:30: Patient's blood pressure and pulse rate are normal. She was able to drink Gatorade this morning after vomiting without additional vomiting her major complaint is abdominal cramping and she has told me that she is out of her tramadol. Apparently when she saw Dr. Johnson following me seeing her last week, Dr. Johnson only give the patient 5 tramadol 50 mg tablets. As I had told the patient before for any further pain management issues, she would need to go through her primary provider. The emergency department would not be able to provide her with the pain management. She does not appear toxic at this time. She does have some pain with palpation of her abdomen but it is soft and bowel sounds are present throughout. Also she has been passing stools. I will give the patient Phenergan 25 mg IM. I'll also give her a Phenergan tablets that she can take as needed for nausea and stomach cramping. I have again encouraged her to follow-up with her primary provider next week to discuss pain management issues. Precautions and reasons for return to the emergency department were discussed with the patient while she was in the emergency department and were detailed in the patient's discharge instructions. Departure - Departure Time of Disposition: 14:00 Disposition: Home, Self-Care 01 Condition: Fair (Stable) Clinical Impression: Chronic abdominal pain, Nausea vomiting and diarrhea - Discharge Information Prescriptions: Promethazine [Phenergan] 25 mg PO Q6H PRN #16 tab PRN Reason: Nausea, vomiting or abd cramps Instructions: Nausea and Vomiting, Adult, [id number], Diarrhea, Adult, [id number] Referrals: [place] MD [Primary Care Provider] - Forms: ED Department Discharge Additional Instructions: Your exam and vital signs were reassuring. You do not appear to be dehydrated at this time. Your major issue, again, appears to be your chronic pain as we have discussed, this is something that you will need to address through your primary provider. The emergency department cannot provide you with pain management for your chronic pain. You'll need to see your primary provider this week to discuss pain management with him. I have sent a prescription to [facility] for Phenergan. This medication helps with nausea but it also helps with abdominal cramping. You were also given a take home pack of Phenergan for tonight if you need it. Back to the emergency department for severe weakness, inability to keep any liquids down, fever or any other concerning signs or symptoms. Sepsis Event Note (ED) - Focused Exam Vital Signs: Vital Signs Temp Pulse Resp BP Pulse Ox 08/31/20 12:53 37.4 C 58 L 18 108/41 L 99 - My Orders Last 24 Hours: My Active Orders 08/31/20 13:25 Promethazine [Phenergan] 25 mg IM ONETIME ONE 08/31/20 13:53 Promethazine [Phenergan] 25 mg PO Q6H PRN 08/31/20 14:01 Promethazine [Phenergan] 25 mg IM ONETIME ONE 08/31/20 14:08 Promethazine [Phenergan] 25 mg PO Q6H PRN - Assessment/Plan Last 24 Hours: My Active Orders 08/31/20 13:25 Promethazine [Phenergan] 25 mg IM ONETIME ONE 08/31/20 13:53 Promethazine [Phenergan] 25 mg PO Q6H PRN 08/31/20 14:01 Promethazine [Phenergan] 25 mg IM ONETIME ONE 08/31/20 14:08 Promethazine [Phenergan] 25 mg PO Q6H PRN
[2020-08-31] MEDS ORDERED: Promethazine 25 MG/ML SDV IM ONE ×3 (13:25→14:15)
[2020-08-31] MEDS ORDERED: Promethazine 25 MG Tab PO PRN ×2 (13:53→14:08)
[2020-08-31 16:49] VITALS: BP 108/41; PULSE 58
== END 2020-08-31 15:05 | disposition home or self-care (01) ==
LOC: FB.ED 12:53
DX: G89.29 Other chronic pain (principal); R10.9 Unspecified abdominal pain; R11.2 Nausea with vomiting, unspecified; R19.7 Diarrhea, unspecified; I11.0 Hypertensive heart disease with heart failure; I50.9 Heart failure, unspecified; I25.2 Old myocardial infarction; K21.9 Gastro-esophageal reflux disease without esophagitis; E66.9 Obesity, unspecified; Z68.30 Body mass index [BMI] 30.0-30.9, adult; Z79.01 Long term (current) use of anticoagulants; Z88.0 Allergy status to penicillin; Z88.1 Allergy status to other antibiotic agents; Z88.2 Allergy status to sulfonamides; Z88.7 Allergy status to serum and vaccine
CPT/HCPCS: 96372; 99283; A9270; J2550

== ENCOUNTER 2020-09-03 17:47 | Emergency (ER) | payer MEDICARE ==
[2020-09-03] MEDS ORDERED: traMADol 50 MG Tab PO ONE (17:48)
[2020-09-03] MEDS ORDERED: Diltiazem 25 MG/5 ML SDV IVPUSH ONE (17:53)
[2020-09-03] MEDS ORDERED: Sodium Chloride 0.9% 10 ML Syringe FLUSH PRN (17:55)
[2020-09-03] MEDS ORDERED: Morphine 2 MG/ML SYRINGE IVPUSH STA (18:17)
[2020-09-03] MEDS ORDERED: Metoprolol Tartrate 25 MG Tab PO STA (18:45)
--- NOTE | 2020-09-03 18:46 | EDM.PDOC ---
ED HPI GENERAL MEDICAL PROBLEM - General Stated Complaint: RAPID HEART RATE Time Seen by Provider: 09/03/20 18:30 Source of Information: Reports: Patient History Limitations: Reports: No Limitations - History of Present Illness INITIAL COMMENTS - FREE TEXT/NARRATIVE: Patient presented to the ED because of rapid heart rate and chest pain which started at 2 pm. She also c/o dyspnea, denies any dizziness. She went to the [facility] and was subsequently referred here for evaluation and management. Generalized Pain Score (Numeric/FACES): 6 - Related Data Allergies Allergy/AdvReac Type Severity Reaction Status Date / Time ciprofloxacin [From Cipro] Allergy Itching Verified 07/14/20 01:52 erythromycin base Allergy Hives Verified 07/14/20 01:52 [Erythromycin Base] ibuprofen Allergy Other Verified 07/14/20 01:52 Influenza Virus Vaccines Allergy Nausea and Verified 07/14/20 01:52 Vomiting ketorolac [From Toradol] Allergy Nausea and Verified 07/14/20 01:52 Vomiting NSAIDS (Non-Steroidal Allergy Other Verified 07/14/20 01:52 Anti-Inflamma Penicillins Allergy Hives Verified 07/14/20 01:52 Sulfa (Sulfonamide Allergy Hives Verified 07/14/20 01:52 Antibiotics) Tetracyclines Allergy Hives Verified 07/14/20 01:52 Home Meds: Home Meds Apixaban [Eliquis] 5 mg PO BID 07/07/20 [History] Lansoprazole 15 mg PO DAILY 07/07/20 [History] busPIRone [Buspar] 2.5 mg PO BID 30 Days #60 tablet 07/17/20 [Rx] oxyCODONE 5 mg PO Q3HR 08/10/20 [History] Acetaminophen 500 mg PO Q6HR PRN 08/24/20 [History] Calcium Carbonate 400 mg PO BID 08/24/20 [History] Cholecalciferol (Vitamin D3) [D3 Dots] 50 mcg PO DAILY 08/24/20 [History] Cyanocobalamin (Vitamin B-12) [Cyanocobalamin Injection] 1,000 mcg IM ASDIRECTED 08/24/20 [History] DULoxetine HCl [Duloxetine HCl] 30 mg PO DAILY 08/24/20 [History] Lidocaine [Lidocaine Pain Relief] 5 % TRDERM DAILY 08/24/20 [History] Melatonin 3 mg PO BEDTIME 08/24/20 [History] Metoprolol Tartrate [Lopressor] 12.5 mg PO BID 08/24/20 [History] Multivitamin with Iron [Multivitamins with Iron] 1 tab PO DAILY 08/24/20 [History] Nitrofurantoin Monohyd/M-Cryst [Macrobid 100 mg Capsule] 100 mg PO BID #10 capsule 08/24/20 [Rx] Simethicone 80 mg PO QID 08/24/20 [History] Temazepam 30 mg PO BEDTIME 08/24/20 [History] traMADol [Ultram] 50 mg PO Q6HR 08/24/20 [History] Promethazine [Phenergan] 25 mg PO Q6H PRN #16 tab 08/31/20 [Rx] Past Medical History - Past Health History Medical/Surgical History: Denies Medical/Surgical History HEENT History: Reports: Cataract, Hard of Hearing, Other (See Below) Other HEENT History: Dry eyes. Left cochlear implant. Wears hearing aid. Cardiovascular History: Reports: Afib, Arrhythmia, Heart Failure, Heart Murmur, Hypertension, MS, Other (See Below) Other Cardiovascular History: Aortic stenosis. Ascending aorta dilation. Diastolic dysfunction. Peripheral vascular disease. Respiratory History: Reports: PE, Pneumonia, Recurrent, SOB, Other (See Below) Other Respiratory History: Pulmonary nodule. Gastrointestinal History: Reports: GERD, PUD, Other (See Below) Other Gastrointestinal History: History of abdominal fistula. hx of bleeding ulcer, hx stomach abscess, hx exp lap Genitourinary History: Reports: UTI, Recurrent, Other (See Below) Other Genitourinary History: Cyst on right kidney. 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 History of fracture right hip, left femur, left wrist. Neurological History: Reports: Neuropathy, Peripheral Other Neuro History: Bilateral peripheral neuropathy. Psychiatric History: Reports: Anxiety, Depression Other Psychiatric History: Insomnia. Endocrine/Metabolic History: Reports: Obesity/BMI 30+, Osteoporosis Other Endocrine/Metabolic History: Impaired glucose tolerance. Hematologic History: Reports: Anemia, Anticoagulation Therapy, Blood Transfusion(s) Dermatologic History: Reports: Cellulitis - Infectious Disease History Infectious Disease History: Reports: Measles, Mumps Other Infectious Disease History: Staph infection right ear, unsure if MRSA. - Past Surgical History Head Surgeries/Procedures: Reports: None HEENT Surgical History: Reports: Cataract Surgery, Oral Surgery Other HEENT Surgeries/Procedures: bilat cataract surgery, Cardiovascular Surgical History: Reports: None Respiratory Surgical History: Reports: None GI Surgical History: Reports: Appendectomy, Bariatric Procedure, Cholecystectomy, Colonoscopy, EGD, Other (See Below) Other GI Surgeries/Procedures: abd fistula repaired, 09/04/2019. splenectomy . Gastric bypass revision Female Surgical History: Reports: Hysterectomy, Salpingo-Oophorectomy, Tubal Ligation Endocrine Surgical History: Reports: None Neurological Surgical History: Reports: None Musculoskeletal Surgical History: Reports: Carpal Tunnel, Hip Replacement, ORIF, Shoulder Surgery Other Musculoskeletal Surgeries/Procedures:: bilat SHOULDER ARTHROPLASTY, ORIF to L wrist, pins removed, Social & Family History - Family History Family Medical History: No Pertinent Family History HEENT: Reports: Glaucoma, Macular Degeneration Cardiac: Reports: Hypertension Endocrine/Metabolic: Reports: Diabetes Mellitus, Type 3c Oncologic: Reports: Brain, Colon, Lung Other Oncologic Family History: Throat. Liver. Stomach. - Caffeine Use Caffeine Use: Reports: None Other Caffeine Use: states that she takes powerade. - Living Situation & Occupation Living situation: Reports: Alone ED ROS GENERAL - Review of Systems Review Of Systems: See Below Constitutional: Reports: No Symptoms HEENT: Reports: No Symptoms Respiratory: Reports: No Symptoms Cardiovascular: Reports: Chest Pain, Palpitations Endocrine: Reports: No Symptoms GI/Abdominal: Reports: No Symptoms : Reports: No Symptoms Musculoskeletal: Reports: No Symptoms Skin: Reports: No Symptoms Neurological: Reports: No Symptoms ED EXAM, GENERAL - Physical Exam Exam: See Below Exam Limited By: No Limitations General Appearance: Alert, No Apparent Distress Nose: Normal Inspection, Normal Mucosa Throat/Mouth: Normal Inspection, Normal Lips, Normal Teeth Head: Atraumatic, Normocephalic Neck: Normal Inspection, Supple, Non-Tender Respiratory/Chest: No Respiratory Distress, Lungs Clear, Normal Breath Sounds Cardiovascular: No Edema, No Gallop, Irregularly Irregular GI/Abdominal: Normal Bowel Sounds, Soft, Non-Tender Back Exam: Normal Inspection, Full Range of Motion Extremities: Normal Inspection, Normal Range of Motion, Non-Tender Neurological: Alert, Oriented, CN II-XII Intact Course - Vital Signs Text/Narrative:: Labs/EKG result was reviewed and discussed with patient Cardizem 15 mg IV x1 Cardizem 10 mg IV x1 Metoprolol tartrate 25 mg PO x1 Morphine 2 mg IV x1 Last Recorded V/S: Last Vital Signs Temp 36.8 C 09/03/20 17:50 Pulse 101 H 09/03/20 19:03 Resp 18 09/03/20 17:50 BP 120/83 09/03/20 19:03 Pulse Ox 98 09/03/20 17:50 - Orders/Labs/Meds Orders: Active Orders 24 hr Category Date Time Status Saline Lock Insert [OM.PC] Routine Oth 09/03/20 17:55 Ordered EKG 12 Lead [EK] Routine Ther 09/03/20 17:55 Ordered Labs: Laboratory Tests 09/03/20 09/03/20 09/03/20 Range/Units 17:55 17:55 17:55 WBC 7.5 (3.0-10.3) x10-3/uL RBC 4.60 (3.60-5.20) x10(6)uL Hgb 12.4 (11.4-15.5) g/dL Hct 39.8 (34.2-48.2) % MCV 86.5 (76.7-100.5) fL MCH 26.9 (23.9-33.9) pg MCHC 31.1 L (31.9-34.8) g/dL RDW 20.2 H (12.3-16.5) % Plt Count 324 (151-488) x10(3)uL MPV 9.6 (7.1-12.4) fL Neut % (Auto) 65.6 (30.8-76.2) % Lymph % (Auto) 20.8 (18.4-52.1) % Tyrrell % (Auto) 9.3 (4.4-15.7) % Eos % (Auto) 3.1 (0.6-8.1) % Baso % (Auto) 1.2 (0.2-1.5) % Neut # (Auto) 4.9 (1.5-6.3) x10-3/uL Lymph # (Auto) 1.6 (1.0-4.4) x10-3/uL Tyrrell # (Auto) 0.7 (0.3-1.0) x10-3/uL Eos # (Auto) 0.2 (0.0-0.8) x10-3/uL Baso # (Auto) 0.1 (0.0-0.1) x10-3/uL Sodium 142 (135-145) mmol/L Potassium 4.1 (3.5-5.3) mmol/L Chloride 103 (100-110) mmol/L Carbon Dioxide 27 (21-32) mmol/L BUN 18 (7-18) mg/dL Creatinine 0.9 (0.55-1.02) mg/dL Est Cr Clr Drug Dosing TNP Estimated GFR (MDRD) > 60 (>60) BUN/Creatinine Ratio 20.0 (9-20) Glucose 115 (80-116) mg/dL Calcium 9.1 (8.6-10.2) mg/dL Total Bilirubin 0.7 (0.1-1.3) mg/dL AST 25 D (5-25) IU/L ALT 25 D (12-36) U/L Alkaline Phosphatase 104 (56-112) IU/L Troponin I 16.6 (4.0-60.3) pg/mL Total Protein 7.7 (6.0-8.0) g/dL Albumin 3.5 (3.2-4.6) g/dL Globulin 4.2 g/dL Albumin/Globulin Ratio 0.8 Meds: Medications Discontinued Medications Generic Name Dose Route Start Last Admin Trade Name Freq PRN Reason Stop Dose Admin Diltiazem HCl 25 mg 09/03/20 17:53 09/03/20 18:25 Diltiazem 25 Mg/5 Ml Sdv IVPUSH 09/03/20 17:54 25 mg ONETIME ONE Administration Metoprolol Tartrate 25 mg 09/03/20 18:45 09/03/20 19:03 Metoprolol Tartrate 25 Mg Tab PO 09/03/20 18:46 25 mg NOW STA Administration Morphine Sulfate 2 mg 09/03/20 18:17 09/03/20 18:25 Morphine 2 Mg/Ml Syringe IVPUSH 09/03/20 18:18 2 mg NOW STA Administration Sodium Chloride 10 ml 09/03/20 17:55 Sodium Chloride 0.9% 10 Ml Syringe FLUSH ASDIRECTED PRN Keep Vein Open Departure - Departure Time of Disposition: 19:15 Disposition: Home, Self-Care 01 Condition: Good Clinical Impression: Palpitations Afib Qualifiers: Atrial fibrillation type: longstanding persistent Qualified Code(s): I48.11 - Longstanding persistent atrial fibrillation Instructions: Atrial Fibrillation, [id number] Referrals: PCP,None [Primary Care Provider] - Forms: ED Department Discharge Additional Instructions: Please read discharge instructions Chronic Afib Take metoprolol 25 mg twice daily if your heart rate is more than 100/min Tramadol, 50 mg with tylenol 500 mg every 6 hours as needed for your chronic pain 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
[2020-09-03 19:55] VITALS: BP 129/77; PULSE 138
== END 2020-09-03 19:27 | disposition home or self-care (01) ==
LOC: FB.ED 17:47
DX: I48.11 Longstanding persistent atrial fibrillation (principal); R00.2 Palpitations; E66.9 Obesity, unspecified; I25.2 Old myocardial infarction; I10 Essential (primary) hypertension; K21.9 Gastro-esophageal reflux disease without esophagitis; Z79.01 Long term (current) use of anticoagulants; Z79.899 Other long term (current) drug therapy; Z68.30 Body mass index [BMI] 30.0-30.9, adult
CPT/HCPCS: 36415; 80053; 84484; 85025; 93010; 96374; 96375; 99284; 99285-25; A9270-GY; J2270; J3490

== ENCOUNTER 2020-09-08 16:51 | Emergency (ER) | payer MEDICARE ==
[2020-09-08 17:22] VITALS: PULSE 55
--- NOTE | 2020-09-08 17:24 | EDM.PDOC ---
ED HPI GENERAL MEDICAL PROBLEM - General Chief Complaint: Cardiovascular Problem Stated Complaint: A FIB Time Seen by Provider: 09/08/20 17:23 Source of Information: Reports: Patient History Limitations: Reports: No Limitations - History of Present Illness INITIAL COMMENTS - FREE TEXT/NARRATIVE: 74-year-old female who reports that at about 4 PM today she felt that her heart was beating fast and counted her pulse rate and thought that it was about 120. He did not have any shortness of breath at the time but she has been having chest pain all through the day. She was concerned that she was in a rapid atrial fibrillation and she decided she needed to come in for evaluation. In addition she also got a letter from the [facility] in which it told her that the scope that was used to evaluate her via EGD had an infection associated with it. Should be noted that this was something that was done 2-3 months ago. This concerned the patient and she wanted the doctor that was evaluating her in the ER to read the letter and interpret it more for her. The pain in her chest is a sharp pain. It is completely reproducible with palpation. On sent an ongoing since approximately 7 AM today. She has been having ongoing nausea with intermittent vomiting but this is a chronic issue for her. She has been able to take liquids but she really has not been able to eat much. He has continuing ongoing diffuse abdominal pain that she has had for a long time. She currently rates that pain as a 6-7/10 but this is a worried is at all times she states. The pain in her chest is about an 8/10 with palpation. She has had no fevers or chills. No syncope or presyncope. She does have intermittent dizziness but this is unchanged. She apparently has been seen recently by Dr. Johnson and he appar ently placed the patient on digoxin in addition to her other medications in an attempt to control her atrial fibrillation. The patient reports she is supposed to take another dose tonight and then she will be taking a dose every morning. There are no other associated signs or symptoms. There are no other modifying factors. Onset: Today Duration: Intermittent Location: Reports: Chest, Abdomen (This is chronic) Quality: Reports: Sharp Severity: Moderate Improves with: Reports: Rest Worsens with: Reports: Eating, Other (Palpation), Movement Context: Reports: Other (As above.) Associated Symptoms: Reports: No Other Symptoms (Except as above.) Treatments TEAROOM HOST: Reports: Other (see below) (Nothing.) - Related Data Allergies Allergy/AdvReac Type Severity Reaction Status Date / Time ciprofloxacin [From Cipro] Allergy Itching Verified 09/08/20 17:11 erythromycin base Allergy Hives Verified 09/08/20 17:11 [Erythromycin Base] ibuprofen Allergy Other Verified 09/08/20 17:11 Influenza Virus Vaccines Allergy Nausea and Verified 09/08/20 17:11 Vomiting ketorolac [From Toradol] Allergy Nausea and Verified 09/08/20 17:11 Vomiting NSAIDS (Non-Steroidal Allergy Other Verified 09/08/20 17:11 Anti-Inflamma Penicillins Allergy Hives Verified 09/08/20 17:11 Sulfa (Sulfonamide Allergy Hives Verified 09/08/20 17:11 Antibiotics) Tetracyclines Allergy Hives Verified 09/08/20 17:11 Home Meds: Home Meds Apixaban [Eliquis] 5 mg PO BID 07/07/20 [History] Lansoprazole 15 mg PO DAILY 07/07/20 [History] busPIRone [Buspar] 2.5 mg PO BID 30 Days #60 tablet 07/17/20 [Rx] oxyCODONE 5 mg PO Q3HR 08/10/20 [History] Acetaminophen 500 mg PO Q6HR PRN 08/24/20 [History] Calcium Carbonate 400 mg PO BID 08/24/20 [History] Cholecalciferol (Vitamin D3) [D3 Dots] 50 mcg PO DAILY 08/24/20 [History] Cyanocobalamin (Vitamin B-12) [Cyanocobalamin Injection] 1,000 mcg IM ASDIRECTED 08/24/20 [History] DULoxetine HCl [Duloxetine HCl] 30 mg PO DAILY 08/24/20 [History] Lidocaine [Lidocaine Pain Relief] 5 % TRDERM DAILY 08/24/20 [History] Melatonin 3 mg PO BEDTIME 08/24/20 [History] Metoprolol Tartrate [Lopressor] 12.5 mg PO BID 08/24/20 [History] Multivitamin with Iron [Multivitamins with Iron] 1 tab PO DAILY 08/24/20 [History] Nitrofurantoin Monohyd/M-Cryst [Macrobid 100 mg Capsule] 100 mg PO BID #10 capsule 08/24/20 [Rx] Simethicone 80 mg PO QID 08/24/20 [History] Temazepam 30 mg PO BEDTIME 08/24/20 [History] traMADol [Ultram] 50 mg PO Q6HR 08/24/20 [History] Promethazine [Phenergan] 25 mg PO Q6H PRN #16 tab 08/31/20 [Rx] Past Medical History HEENT History: Reports: Cataract, Hard of Hearing, Other (See Below) Other HEENT History: Dry eyes. Left cochlear implant. Wears hearing aid. Cardiovascular History: Reports: Afib, Arrhythmia, Heart Failure, Heart Murmur, Hypertension, [place], Other (See Below) Other Cardiovascular History: Aortic stenosis. Ascending aorta dilation. Diastolic dysfunction. Peripheral vascular disease. Respiratory History: Reports: PE, Pneumonia, Recurrent, SOB, Other (See Below) Other Respiratory History: Pulmonary nodule. Gastrointestinal History: Reports: GERD, PUD, Other (See Below) Other Gastrointestinal History: History of abdominal fistula. hx of bleeding ulcer, hx stomach abscess, hx exp lap Genitourinary History: Reports: UTI, Recurrent, Other (See Below) Other Genitourinary History: Cyst on right kidney. 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 History of fracture right hip, left femur, left wrist. Neurological History: Reports: Neuropathy, Peripheral Other Neuro History: Bilateral peripheral neuropathy. Psychiatric History: Reports: Anxiety, Depression Other Psychiatric History: Insomnia. Endocrine/Metabolic History: Reports: Obesity/BMI 30+, Osteoporosis Other Endocrine/Metabolic History: Impaired glucose tolerance. Hematologic History: Reports: Anemia, Anticoagulation Therapy, Blood Transfusion(s) Dermatologic History: Reports: Cellulitis - Infectious Disease History Infectious Disease History: Reports: Measles, Mumps Other Infectious Disease History: Staph infection right ear, unsure if MRSA. - Past Surgical History HEENT Surgical History: Reports: Cataract Surgery, Oral Surgery Other HEENT Surgeries/Procedures: bilat cataract surgery, GI Surgical History: Reports: Appendectomy, Bariatric Procedure, Cholecystectomy, Colonoscopy, EGD, Other (See Below) Other GI Surgeries/Procedures: abd fistula repaired, 09/04/2019. splenectomy . Gastric bypass revision Female Surgical History: Reports: Hysterectomy, Salpingo-Oophorectomy, Tubal Ligation Musculoskeletal Surgical History: Reports: Carpal Tunnel, Hip Replacement, ORIF, Shoulder Surgery Other Musculoskeletal Surgeries/Procedures:: bilat SHOULDER ARTHROPLASTY, ORIF to L wrist, pins removed, Social & Family History - Family History HEENT: Reports: Glaucoma, Macular Degeneration Cardiac: Reports: Hypertension Endocrine/Metabolic: Reports: Diabetes Mellitus, Type 3c Oncologic: Reports: Brain, Colon, Lung Other Oncologic Family History: Throat. Liver. Stomach. - Tobacco Use Tobacco Use Status *Q: Unknown Ever Used Tobacco (Nonsmoker) - Caffeine Use Caffeine Use: Reports: Coffee, Soda Other Caffeine Use: states that she takes powerade. - Alcohol Use Alcohol Use History: No - Living Situation & Occupation Living situation: Reports: Alone ED ROS GENERAL - Review of Systems Review Of Systems: See Below Constitutional: Reports: Weakness, Fatigue. Denies: Fever, Chills HEENT: Denies: Throat Pain, Vision Change Respiratory: Denies: Shortness of Breath, Cough Cardiovascular: Reports: Chest Pain, Lightheadedness, Palpitations Endocrine: Reports: Fatigue GI/Abdominal: Reports: Abdominal Pain, Nausea, Vomiting : Denies: Dysuria, Hematuria Musculoskeletal: Denies: Neck Pain, Back Pain Skin: Denies: Diaphoresis, Rash Neurological: Reports: Dizziness (Chronic). Denies: Confusion Psychiatric: Reports: Anxiety Hematologic/Lymphatic: Reports: Anemia ED EXAM, GENERAL - Physical Exam Exam: See Below Exam Limited By: No Limitations General Appearance: Alert, Mild Distress (Respiratory distress.), Thin, Cachetic Eye Exam: Bilateral Eye: EOMI, Normal Inspection (Sclera are anicteric) Ears: Normal External Exam, Hearing Loss Ear Exam: Bilateral Ear: Auricle Normal Nose: Normal Inspection, Normal Mucosa, No Blood Throat/Mouth: Normal Voice, No Airway Compromise, Other (Edentulous) Head: Atraumatic, Normocephalic Neck: Normal Inspection, Supple, Non-Tender, Full Range of Motion Respiratory/Chest: No Respiratory Distress, Lungs Clear, Normal Breath Sounds, No Accessory Muscle Use, Other (Tender to palpation over the left chest that completely reproduces the chest pain that she is describing.) Cardiovascular: Normal Peripheral Pulses, Regular Rate, Rhythm (Slow rate but regular.) Peripheral Pulses: 2+: Radial (L), Radial (R) GI/Abdominal: Normal Bowel Sounds, Soft, No Mass, Tender (All diffuse tenderness. No rebound or guarding.) Back Exam: Normal Inspection. No: CVA Tenderness (R), CVA Tenderness (L) Extremities: Normal Inspection, Normal Range of Motion, Non-Tender, No Pedal Edema, Normal Capillary Refill Neurological: Alert, Oriented, CN II-XII Intact, No Motor/Sensory Deficits Psychiatric: Normal Affect Skin Exam: Warm, Dry, Intact, Normal Color, No Rash #1 Interpretation EKG Date: 09/08/20 Time: 17:49 Rhythm: Other (Sinus bradycardia) Rate (Beats/Min): 41 [place]: Normal P-Wave: Present QRS: Other (Nonspecific intraventricular conduction delay) ST-T: Other (Diffuse nonspecific ST-T changes) QT: Prolonged (Prolonged QTc.) Comparison: Change From Previous EKG (Since previous EKG provided on 08/24/2020, atrial fibrillation is now resolved and she has sinus bradycardia. Otherwise no real change.) Course - Vital Signs Last Recorded V/S: Last Vital Signs Temp 36.1 C 09/08/20 17:15 Pulse 55 L 09/08/20 17:00 Resp 15 09/08/20 19:00 BP 124/59 L 09/08/20 19:00 Pulse Ox 97 09/08/20 19:00 - Orders/Labs/Meds Orders: Active Orders 24 hr Category Date Time Status EKG 12 Lead [EK] Routine Ther 09/08/20 17:36 Ordered - Re-Assessments/Exams Free Text/Narrative Re-Assessment/Exam: 09/08/20 18:00: EKG shows sinus bradycardia with nonspecific intraventricular conduction delay and since 08/24/2020 has converted from A. fib. There is a heart rate in the 40s. Other than this, there is really no change from the previous EKG. The patient's reports of fast heart rate seemed to be unfounded or it has converted spontaneously. She does have chest pain but it is reproducible with palpation. She really has no other complaints that are new. She is awake, alert and appropriate. Her blood pressure is 90-100 systolic and this is where she usually is. I feel that she is stable for discharge at this point. I will have her hold her digoxin tonight and tomorrow morning and a want her to follow-up with Dr. Johnosn tomorrow in regard to further dosing on the digoxin. I will also try to get a message to Dr. Johnson tomorrow morning in regard to the patient's presentation fernando. 09/09/20 07:40: I did call and discussed the patient's case with Dr. Johnson this morning. I discussed with him the patient's presenting complaint and her EKG. He will have his office staff call the patient to bring her in for reevaluation today if possible. Departure - Departure Time of Disposition: 19:00 Disposition: Home, Self-Care 01 Condition: Fair (Stable.) Clinical Impression: Palpitations, Musculoskeletal chest pain Chronic pain Qualifiers: Chronic pain type: other chronic pain Qualified Code(s): G89.29 - Other chronic pain Instructions: Chest Wall Pain, [id number], Chronic Pain, Adult, Palpitations, [id number] Referrals: [facility] [facility] MD [Primary Care Provider] - Forms: ED Department Discharge Additional Instructions: You are currently back in a sinus rhythm. Your heart rate is slow (it was 41). You need to not take any more of the digoxin until you see Dr. Johnson or talk to Dr. Johnson about it. Back to the emergency department for uncontrolled, fast heart rate, trouble breathing or any other concerning signs or symptoms. Sepsis Event Note (ED) - Evaluation Sepsis Screening Result: No Definite Risk - My Orders Last 24 Hours: My Active Orders 09/08/20 17:36 EKG 12 Lead [EK] Routine - Assessment/Plan Last 24 Hours: My Active Orders 09/08/20 17:36 EKG 12 Lead [EK] Routine
[2020-09-08 20:36] VITALS: BP 124/59
== END 2020-09-08 19:15 | disposition home or self-care (01) ==
LOC: FB.ED 16:51
DX: R07.89 Other chest pain (principal); R00.2 Palpitations; I48.91 Unspecified atrial fibrillation; I11.0 Hypertensive heart disease with heart failure; I50.9 Heart failure, unspecified; I25.2 Old myocardial infarction; K21.9 Gastro-esophageal reflux disease without esophagitis; G62.9 Polyneuropathy, unspecified; E66.9 Obesity, unspecified; Z88.1 Allergy status to other antibiotic agents; Z88.6 Allergy status to analgesic agent; Z88.7 Allergy status to serum and vaccine; Z88.0 Allergy status to penicillin; Z88.2 Allergy status to sulfonamides; Z79.01 Long term (current) use of anticoagulants; Z79.899 Other long term (current) drug therapy; Z86.711 Personal history of pulmonary embolism
CPT/HCPCS: 93005; 93010; 99284; 99284-25

== ENCOUNTER 2020-09-16 02:55 | Emergency (ER) | payer MEDICARE ==
[2020-09-16 03:06] VITALS: BP 132/69; PULSE 56
[2020-09-16] MEDS ORDERED: traMADol 50 MG Tab PO ONE (03:32)
--- NOTE | 2020-09-16 03:37 | EDM.PDOC ---
ED HPI GENERAL MEDICAL PROBLEM - General Chief Complaint: Back Pain or Injury Stated Complaint: BACK PAIN Time Seen by Provider: 09/16/20 03:32 Source of Information: Reports: Patient History Limitations: Reports: No Limitations - History of Present Illness INITIAL COMMENTS - FREE TEXT/NARRATIVE: Patient lost her balance and fell to the ground while walking to the bathroom using her walker @0230 today. She denies loss of consciousness. No headache or neck pain. Patient complains of low back and right buttock pain. She requests Tramadol for pain. Denies dizziness, weakness, or numbness. Onset Date: 09/16/20 Onset Time: 02:30 Location: Reports: Back, Pelvis Quality: Reports: Ache Severity: Moderate - Related Data Allergies Allergy/AdvReac Type Severity Reaction Status Date / Time ciprofloxacin [From Cipro] Allergy Itching Verified 09/08/20 17:11 erythromycin base Allergy Hives Verified 09/08/20 17:11 [Erythromycin Base] ibuprofen Allergy Other Verified 09/08/20 17:11 Influenza Virus Vaccines Allergy Nausea and Verified 09/08/20 17:11 Vomiting ketorolac [From Toradol] Allergy Nausea and Verified 09/08/20 17:11 Vomiting NSAIDS (Non-Steroidal Allergy Other Verified 09/08/20 17:11 Anti-Inflamma Penicillins Allergy Hives Verified 09/08/20 17:11 Sulfa (Sulfonamide Allergy Hives Verified 09/08/20 17:11 Antibiotics) Tetracyclines Allergy Hives Verified 09/08/20 17:11 Home Meds: Home Meds Apixaban [Eliquis] 5 mg PO BID 07/07/20 [History] Lansoprazole 15 mg PO DAILY 07/07/20 [History] busPIRone [Buspar] 2.5 mg PO BID 30 Days #60 tablet 07/17/20 [Rx] Acetaminophen 500 mg PO Q6HR PRN 08/24/20 [History] Calcium Carbonate 400 mg PO BID 08/24/20 [History] Cholecalciferol (Vitamin D3) [D3 Dots] 50 mcg PO DAILY 08/24/20 [History] Cyanocobalamin (Vitamin B-12) [Cyanocobalamin Injection] 1,000 mcg IM ASDIRECTED 08/24/20 [History] DULoxetine HCl [Duloxetine HCl] 30 mg PO DAILY 08/24/20 [History] Lidocaine [Lidocaine Pain Relief] 5 % TRDERM DAILY 08/24/20 [History] Melatonin 3 mg PO BEDTIME 08/24/20 [History] Metoprolol Tartrate [Lopressor] 12.5 mg PO BID 08/24/20 [History] Multivitamin with Iron [Multivitamins with Iron] 1 tab PO DAILY 08/24/20 [History] Nitrofurantoin Monohyd/M-Cryst [Macrobid 100 mg Capsule] 100 mg PO BID #10 capsule 08/24/20 [Rx] Simethicone 80 mg PO QID 08/24/20 [History] Temazepam 30 mg PO BEDTIME 08/24/20 [History] Promethazine [Phenergan] 25 mg PO Q6H PRN #16 tab 08/31/20 [Rx] traMADol [Ultram] 50 mg PO Q6H PRN #10 tab 09/16/20 [Rx] Past Medical History HEENT History: Reports: Cataract, Hard of Hearing, Other (See Below) Other HEENT History: Dry eyes. Left cochlear implant. Wears hearing aid. Cardiovascular History: Reports: Afib, Arrhythmia, Heart Failure, Heart Murmur, Hypertension, [place], Other (See Below) Other Cardiovascular History: Aortic stenosis. Ascending aorta dilation. Diastolic dysfunction. Peripheral vascular disease. Respiratory History: Reports: PE, Pneumonia, Recurrent, SOB, Other (See Below) Other Respiratory History: Pulmonary nodule. Gastrointestinal History: Reports: GERD, PUD, Other (See Below) Other Gastrointestinal History: History of abdominal fistula. hx of bleeding ulcer, hx stomach abscess, hx exp lap Genitourinary History: Reports: UTI, Recurrent, Other (See Below) Other Genitourinary History: Cyst on right kidney. 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 History of fracture right hip, left femur, left wrist. Neurological History: Reports: Neuropathy, Peripheral Other Neuro History: Bilateral peripheral neuropathy. Psychiatric History: Reports: Anxiety, Depression Other Psychiatric History: Insomnia. Endocrine/Metabolic History: Reports: Obesity/BMI 30+, Osteoporosis Other Endocrine/Metabolic History: Impaired glucose tolerance. Hematologic History: Reports: Anemia, Anticoagulation Therapy, Blood Transfusion(s) Dermatologic History: Reports: Cellulitis - Infectious Disease History Infectious Disease History: Reports: Measles, Mumps Other Infectious Disease History: Staph infection right ear, unsure if MRSA. - Past Surgical History Head Surgeries/Procedures: Reports: None HEENT Surgical History: Reports: Cataract Surgery, Oral Surgery Other HEENT Surgeries/Procedures: bilat cataract surgery, Cardiovascular Surgical History: Reports: None Respiratory Surgical History: Reports: None GI Surgical History: Reports: Appendectomy, Bariatric Procedure, Cholecystectomy, Colonoscopy, EGD, Other (See Below) Other GI Surgeries/Procedures: abd fistula repaired, 09/04/2019. splenectomy . Gastric bypass revision Female Surgical History: Reports: Hysterectomy, Salpingo-Oophorectomy, Tubal Ligation Endocrine Surgical History: Reports: None Neurological Surgical History: Reports: None Musculoskeletal Surgical History: Reports: Carpal Tunnel, Hip Replacement, ORIF, Shoulder Surgery Other Musculoskeletal Surgeries/Procedures:: bilat SHOULDER ARTHROPLASTY, ORIF to L wrist, pins removed, Social & Family History - Family History Family Medical History: No Pertinent Family History HEENT: Reports: Glaucoma, Macular Degeneration Cardiac: Reports: Hypertension Endocrine/Metabolic: Reports: Diabetes Mellitus, Type 3c Oncologic: Reports: Brain, Colon, Lung Other Oncologic Family History: Throat. Liver. Stomach. - Tobacco Use Tobacco Use Status *Q: Unknown Ever Used Tobacco - Caffeine Use Caffeine Use: Reports: None Other Caffeine Use: states that she takes powerade. - Recreational Drug Use Recreational Drug Use: No - Living Situation & Occupation Living situation: Reports: Alone ED ROS GENERAL - Review of Systems Review Of Systems: Comprehensive ROS is negative, except as noted in HPI. ED EXAM,LOWER BACK PAIN/INJURY - Physical Exam Exam: See Below Exam Limited By: No Limitations General Appearance: Alert, WD/WN, No Apparent Distress Eye Exam: Bilateral Eye: EOMI, PERRL Ears: Normal External Exam Nose: Normal Inspection Throat/Mouth: No Airway Compromise Head: Atraumatic, Normocephalic Neck: Non-Tender Respiratory/Chest: No Respiratory Distress, Lungs Clear, Normal Breath Sounds Cardiovascular: Regular Rate, Rhythm, No Murmur GI/Abdominal: Non-Tender, No Distention Back Exam: Vertebral Tenderness (lumbar) Extremities: Other (right buttock tenderness) Neurological: Alert, Normal Mood/Affect, No Motor/Sensory Deficits, Oriented x 3 Skin Exam: Warm, Dry, Intact, Normal Color Course - Vital Signs Last Recorded V/S: Last Vital Signs Temp 36.9 C 09/16/20 03:05 Pulse 56 L 09/16/20 03:05 Resp 14 09/16/20 03:05 BP 132/69 09/16/20 03:05 Pulse Ox 98 09/16/20 03:05 - Orders/Labs/Meds Orders: Active Orders 24 hr Category Date Time Status Lumbar Spine 2 or 3V [CR] Stat Exams 09/16/20 03:31 Ordered Pelvis 1V or 2V [CR] Stat Exams 09/16/20 03:31 Ordered Meds: Medications Discontinued Medications Generic Name Dose Route Start Last Admin Trade Name Freq PRN Reason Stop Dose Admin Tramadol HCl 50 mg 09/16/20 03:32 09/16/20 03:36 Tramadol 50 Mg Tab PO 09/16/20 03:33 50 mg ONETIME ONE Administration - Radiology Interpretation Free Text/Narrative:: L-spine Xray: No acute fracture or subluxation (ED provider interpretation) Pelvis Xray: No fracture (ED provider interpretation) Departure - Departure Time of Disposition: 04:32 Disposition: Home, Self-Care 01 Condition: Good Clinical Impression: Contusion of lower back and pelvis, initial encounter - Discharge Information *PRESCRIPTION DRUG MONITORING PROGRAM REVIEWED*: Yes *COPY OF PRESCRIPTION DRUG MONITORING REPORT IN PATIENT MANUEL: No Prescriptions: traMADol [Ultram] 50 mg PO Q6H PRN #10 tab PRN Reason: Pain Instructions: Contusion, [id number] Referrals: Mir Johnson MD [Physician] - 3 Days Forms: ED Department Discharge Additional Instructions: Fill the prescription for Tramadol at [facility] and take as directed. Rest. Follow up with your primary physician in 2-3 days. Sepsis Event Note (ED) - Evaluation Sepsis Screening Result: No Definite Risk - Focused Exam Vital Signs: Vital Signs Temp Pulse Resp BP Pulse Ox 09/16/20 03:05 36.9 C 56 L 14 132/69 98 - My Orders Last 24 Hours: My Active Orders 09/16/20 03:31 Lumbar Spine 2 or 3V [CR] Stat Pelvis 1V or 2V [CR] Stat - Assessment/Plan Last 24 Hours: My Active Orders 09/16/20 03:31 Lumbar Spine 2 or 3V [CR] Stat Pelvis 1V or 2V [CR] Stat
--- NOTE | 2020-09-16 11:01 | CR ---
INDICATION: Fall, injury. LUMBOSACRAL SPINE: Three views of the lumbosacral spine 09/16/[address] of the abdomen and pelvis dated 08/25/20 again revealing compression fractures at T12 and L5 which appear unchanged. There is again noted a suggestion of posterior deviation of a portion of the vertebral body of L5 superiorly apparently due to the compression. Some hypertrophic degenerative changes are noted at the apophyseal joints of L4- L5 and L5-S1. Vertebral body heights and disc heights were otherwise fairly well maintained, although there is likely decreased disc space at L3-L4 suggesting disc disease. Minimal vacuum disc phenomenon is noted at L4 also suggesting disc disease. A dextroconcave scoliosis of the lower lumbar spine is again noted with a minimal rotatory component. IMPRESSION: 1. No acute fracture or dislocation. 2. Hypertrophic degenerative changes - osteoarthritis posterior elements mid to lower lumbosacral spine. 3. Slight demineralization suggested may be on the basis of osteoporosis. 4. Two osteoporotic compression fractures, T12 and L5, appear stable compared with 08/25/20. 5. Mild scoliosis. MTDD
--- NOTE | 2020-09-16 11:05 | CR ---
INDICATION: Fall, injury. PELVIS ONE VIEW: An AP supine view of the pelvis was obtained with demineralization suggested. There is noted a healed fracture of the inferior pubic ramus on the left. A definite acute fracture or dislocation was not identified. Stable exostosis is noted off the anterior aspect of the right iliac wing laterally. MTDD
== END 2020-09-16 04:52 | disposition home or self-care (01) ==
LOC: FB.ED 02:55
DX: S30.0XXA Contusion of lower back and pelvis, initial encounter (principal); E66.9 Obesity, unspecified; I48.91 Unspecified atrial fibrillation; I11.0 Hypertensive heart disease with heart failure; I50.9 Heart failure, unspecified; I25.2 Old myocardial infarction; K21.9 Gastro-esophageal reflux disease without esophagitis; Z68.25 Body mass index [BMI] 25.0-25.9, adult; Z88.1 Allergy status to other antibiotic agents; Z88.6 Allergy status to analgesic agent; Z88.7 Allergy status to serum and vaccine; Z88.8 Allergy status to other drugs, medicaments and biological substances; Z79.01 Long term (current) use of anticoagulants; Z88.2 Allergy status to sulfonamides; Z88.0 Allergy status to penicillin; W18.39XA Other fall on same level, initial encounter; Y92.002 Bathroom of unspecified non-institutional (private) residence as the place of occurrence of the external cause
CPT/HCPCS: 72100; 72170; 99283; A9270

== ENCOUNTER 2020-09-22 06:26 | Emergency (ER) | payer MEDICARE ==
--- NOTE | 2020-09-22 08:04 | EDM.PDOC ---
ED HPI GENERAL MEDICAL PROBLEM - General Chief Complaint: Chest Pain Stated Complaint: CHEST PAIN Time Seen by Provider: 09/22/20 08:00 Source of Information: Reports: Patient History Limitations: Reports: No Limitations - History of Present Illness INITIAL COMMENTS - FREE TEXT/NARRATIVE: Ms Peres complains of left sided chest pain,sharp,severe,since last night. Worse with touch and movement. No SOB. Vasyl radiation,however,she does have numbness of the left side of the arm. Maya has a h/o Afib,and a recent prolonged course of enterocutaneous fistula that was successfully treated at the [facility]( Apr 2020) L anterior chest radiating into L arm Pain Score (Numeric/FACES): 7 - Related Data Allergies Allergy/AdvReac Type Severity Reaction Status Date / Time ciprofloxacin [From Cipro] Allergy Itching Verified 09/22/20 09:23 erythromycin base Allergy Hives Verified 09/22/20 09:23 [Erythromycin Base] ibuprofen Allergy Other Verified 09/22/20 09:23 Influenza Virus Vaccines Allergy Nausea and Verified 09/22/20 09:23 Vomiting ketorolac [From Toradol] Allergy Nausea and Verified 09/22/20 09:23 Vomiting NSAIDS (Non-Steroidal Allergy Other Verified 09/22/20 09:23 Anti-Inflamma Penicillins Allergy Hives Verified 09/22/20 09:23 Sulfa (Sulfonamide Allergy Hives Verified 09/22/20 09:23 Antibiotics) Tetracyclines Allergy Hives Verified 09/22/20 09:23 Home Meds: Home Meds Apixaban [Eliquis] 5 mg PO BID 07/07/20 [History] Lansoprazole 15 mg PO DAILY 07/07/20 [History] busPIRone [Buspar] 2.5 mg PO BID 30 Days #60 tablet 07/17/20 [Rx] Acetaminophen 500 mg PO Q6HR PRN 08/24/20 [History] Cyanocobalamin (Vitamin B-12) [Cyanocobalamin Injection] 1,000 mcg IM Q30D 08/24/20 [History] Metoprolol Tartrate [Lopressor] 12.5 mg PO BID 08/24/20 [History] Multivitamin with Iron [Multivitamins with Iron] 1 tab PO DAILY 08/24/20 [History] Temazepam 30 mg PO BEDTIME 08/24/20 [History] Digoxin [Lanoxin] 125 mcg PO DAILY 09/22/20 [History] Past Medical History HEENT History: Reports: Cataract, Hard of Hearing, Other (See Below) Other HEENT History: Dry eyes. Left cochlear implant. Wears hearing aid. Cardiovascular History: Reports: Afib, Arrhythmia, Heart Failure, Heart Murmur, Hypertension, [place], Other (See Below) Other Cardiovascular History: Aortic stenosis. Ascending aorta dilation. Diastolic dysfunction. Peripheral vascular disease. Respiratory History: Reports: PE, Pneumonia, Recurrent, SOB, Other (See Below) Other Respiratory History: Pulmonary nodule. Gastrointestinal History: Reports: GERD, PUD, Other (See Below) Other Gastrointestinal History: History of abdominal fistula. hx of bleeding ulcer, hx stomach abscess, hx exp lap Genitourinary History: Reports: UTI, Recurrent, Other (See Below) Other Genitourinary History: Cyst on right kidney. 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 History of fracture right hip, left femur, left wrist. Neurological History: Reports: Neuropathy, Peripheral Other Neuro History: Bilateral peripheral neuropathy. Psychiatric History: Reports: Anxiety, Depression Other Psychiatric History: Insomnia. Endocrine/Metabolic History: Reports: Obesity/BMI 30+, Osteoporosis Other Endocrine/Metabolic History: Impaired glucose tolerance. Hematologic History: Reports: Anemia, Anticoagulation Therapy, Blood Transfusion(s) Dermatologic History: Reports: Cellulitis - Infectious Disease History Infectious Disease History: Reports: Measles, Mumps Other Infectious Disease History: Staph infection right ear, unsure if MRSA. - Past Surgical History Head Surgeries/Procedures: Reports: None HEENT Surgical History: Reports: Cataract Surgery, Oral Surgery Other HEENT Surgeries/Procedures: bilat cataract surgery, Cardiovascular Surgical History: Reports: None Respiratory Surgical History: Reports: None GI Surgical History: Reports: Appendectomy, Bariatric Procedure, Cholecystectomy, Colonoscopy, EGD, Other (See Below) Other GI Surgeries/Procedures: abd fistula repaired, 09/04/2019. splenectomy . Gastric bypass revision Female Surgical History: Reports: Hysterectomy, Salpingo-Oophorectomy, Tubal Ligation Endocrine Surgical History: Reports: None Neurological Surgical History: Reports: None Musculoskeletal Surgical History: Reports: Carpal Tunnel, Hip Replacement, ORIF, Shoulder Surgery Other Musculoskeletal Surgeries/Procedures:: bilat SHOULDER ARTHROPLASTY, ORIF to L wrist, pins removed, Social & Family History - Family History Family Medical History: No Pertinent Family History HEENT: Reports: Glaucoma, Macular Degeneration Cardiac: Reports: Hypertension Endocrine/Metabolic: Reports: Diabetes Mellitus, Type 3c Oncologic: Reports: Brain, Colon, Lung Other Oncologic Family History: Throat. Liver. Stomach. - Caffeine Use Caffeine Use: Reports: None Other Caffeine Use: states that she takes powerade. - Living Situation & Occupation Living situation: Reports: Alone ED ROS GENERAL - Review of Systems Review Of Systems: Comprehensive ROS is negative, except as noted in HPI. ED EXAM, GENERAL - Physical Exam Exam: See Below Exam Limited By: No Limitations General Appearance: Alert, No Apparent Distress Nose: Normal Inspection Head: Atraumatic Neck: Normal Inspection Respiratory/Chest: No Respiratory Distress, Other (Tender chest muscles). No: Chest Non-Tender Cardiovascular: Normal Peripheral Pulses Rectal (Female) Exam: Deferred Back Exam: Normal Inspection Psychiatric: Normal Affect #1 Interpretation EKG Date: 09/22/20 Rhythm: NSR Rover: Normal P-Wave: Present QRS: Normal ST-T: Normal #2 Interpretation EKG Date: 09/22/20 Time: 10:30 Rhythm: NSR Rate (Beats/Min): 48 Rover: Normal P-Wave: Present QRS: Normal ST-T: Normal Comparison: No Change Course - Vital Signs Last Recorded V/S: Last Vital Signs Temp 98.3 F 09/22/20 06:40 Pulse 56 L 09/22/20 11:15 Resp 16 09/22/20 11:15 BP 138/80 09/22/20 11:15 Pulse Ox 97 09/22/20 11:15 - Orders/Labs/Meds Orders: Active Orders 24 hr Category Date Time Status EKG Documentation Completion [RC] ASDIRECTED Care 09/22/20 06:30 Active CXR [Chest 2V] [CR] Stat Exams 09/22/20 08:04 Taken EKG 12 Lead [EK] Routine Ther 09/22/20 06:30 Ordered Labs: Laboratory Tests 09/22/20 09/22/20 09/22/20 Range/Units 07:55 07:55 07:55 WBC 5.6 (3.0-10.3) x10-3/uL RBC 4.20 (3.60-5.20) x10(6)uL Hgb 11.4 (11.4-15.5) g/dL Hct 35.9 (34.2-48.2) % MCV 85.6 (76.7-100.5) fL MCH 27.1 (23.9-33.9) pg MCHC 31.7 L (31.9-34.8) g/dL RDW 21.3 H (12.3-16.5) % Plt Count 186 (151-488) x10(3)uL MPV 10.9 (7.1-12.4) fL Neut % (Auto) 57.5 (30.8-76.2) % Lymph % (Auto) 27.2 (18.4-52.1) % [place] % (Auto) 12.2 (4.4-15.7) % Eos % (Auto) 2.2 (0.6-8.1) % Baso % (Auto) 0.9 (0.2-1.5) % Neut # (Auto) 3.2 (1.5-6.3) x10-3/uL Lymph # (Auto) 1.5 (1.0-4.4) x10-3/uL [place] # (Auto) 0.7 (0.3-1.0) x10-3/uL Eos # (Auto) 0.1 (0.0-0.8) x10-3/uL Baso # (Auto) 0.1 (0.0-0.1) x10-3/uL Sodium 147 H (135-145) mmol/L Potassium 3.7 (3.5-5.3) mmol/L Chloride 106 (100-110) mmol/L Carbon Dioxide 31 (21-32) mmol/L BUN 11 (7-18) mg/dL Creatinine 0.8 (0.55-1.02) mg/dL Est Cr Clr Drug Dosing TNP Estimated GFR (MDRD) > 60 (>60) BUN/Creatinine Ratio 13.8 (9-20) Glucose 93 (80-116) mg/dL Calcium 9.0 (8.6-10.2) mg/dL Troponin I 13.5 (4.0-60.3) pg/mL 09/22/20 Range/Units 10:35 WBC (3.0-10.3) x10-3/uL RBC (3.60-5.20) x10(6)uL Hgb (11.4-15.5) g/dL Hct (34.2-48.2) % MCV (76.7-100.5) fL MCH (23.9-33.9) pg MCHC (31.9-34.8) g/dL RDW (12.3-16.5) % Plt Count (151-488) x10(3)uL MPV (7.1-12.4) fL Neut % (Auto) (30.8-76.2) % Lymph % (Auto) (18.4-52.1) % [place] % (Auto) (4.4-15.7) % Eos % (Auto) (0.6-8.1) % Baso % (Auto) (0.2-1.5) % Neut # (Auto) (1.5-6.3) x10-3/uL Lymph # (Auto) (1.0-4.4) x10-3/uL [place] # (Auto) (0.3-1.0) x10-3/uL Eos # (Auto) (0.0-0.8) x10-3/uL Baso # (Auto) (0.0-0.1) x10-3/uL Sodium (135-145) mmol/L Potassium (3.5-5.3) mmol/L Chloride (100-110) mmol/L Carbon Dioxide (21-32) mmol/L BUN (7-18) mg/dL Creatinine (0.55-1.02) mg/dL Est Cr Clr Drug Dosing Estimated GFR (MDRD) (>60) BUN/Creatinine Ratio (9-20) Glucose (80-116) mg/dL Calcium (8.6-10.2) mg/dL Troponin I 13.3 (4.0-60.3) pg/mL Meds: Medications Discontinued Medications Generic Name Dose Route Start Last Admin Trade Name Freq PRN Reason Stop Dose Admin Acetaminophen 1,000 mg 09/22/20 08:50 09/22/20 09:10 Acetaminophen 500 Mg Tab PO 09/22/20 08:51 1,000 mg ONETIME ONE Administration Hydroxyzine HCl 50 mg 09/22/20 09:53 09/22/20 10:00 Hydroxyzine Hcl 50 Mg/Ml Sdv IM 09/22/20 09:54 50 mg ONETIME ONE Administration Morphine Sulfate 10 mg 09/22/20 09:53 09/22/20 10:00 Morphine 10 Mg/Ml Sdv IM 09/22/20 09:54 10 mg ONETIME ONE Administration Departure - Departure Time of Disposition: 11:31 Disposition: Home, Self-Care 01 Condition: Good Clinical Impression: Chest pain Instructions: Nonspecific Chest Pain, Adult, [id number] Referrals: Casa Camarena MD [Primary Care Provider] - Forms: ED Department Discharge Additional Instructions: Activity as tolerated. Tylenol as needed for pain. Follow up with Dr. Camarena tomorrow at clinic for recheck. Call for appt. Sepsis Event Note (ED) - Focused Exam Vital Signs: Vital Signs Temp Pulse Resp BP Pulse Ox 09/22/20 11:15 56 L 16 138/80 97 09/22/20 10:30 50 L 16 130/75 97 09/22/20 10:00 57 L 18 131/65 99 09/22/20 09:30 64 16 152/86 H 94 L 09/22/20 09:00 72 18 140/73 94 L 09/22/20 08:30 72 18 128/60 91 L 09/22/20 08:00 76 18 136/87 94 L 09/22/20 07:30 62 17 120/56 L 96 09/22/20 07:15 69 15 133/70 98 09/22/20 07:00 70 19 122/66 98 09/22/20 06:40 98.3 F 64 18 133/65 97 - Problem List & Annotations (1) Chest pain SNOMED Code(s): 06722869 Code(s): R07.9 - CHEST PAIN, UNSPECIFIED Status: Acute Current Visit: Yes - Problem List Review Problem List Initiated/Reviewed/Updated: Yes - My Orders Last 24 Hours: My Active Orders 09/22/20 08:04 CXR [Chest 2V] [CR] Stat - Assessment/Plan Last 24 Hours: My Active Orders 09/22/20 08:04 CXR [Chest 2V] [CR] Stat Plan: Trop neg x 2. CXR negative.EKG neg x 2. Will send her home.
[2020-09-22] MEDS: Acetaminophen 500 MG Tab PO ONE (09:10)
[2020-09-22] MEDS: hydrOXYzine HCl 50 MG/ML SDV IM ONE (10:00)
[2020-09-22] MEDS: Morphine 10 MG/ML SDV IM ONE (10:00)
[2020-09-22 11:23] VITALS: BP 138/80; PULSE 56
== END 2020-09-22 11:30 | disposition home or self-care (01) ==
LOC: FB.ED 06:26
DX: R07.9 Chest pain, unspecified (principal); I48.91 Unspecified atrial fibrillation; I11.0 Hypertensive heart disease with heart failure; I50.9 Heart failure, unspecified; I25.2 Old myocardial infarction; E66.9 Obesity, unspecified; Z79.01 Long term (current) use of anticoagulants; Z68.25 Body mass index [BMI] 25.0-25.9, adult; Z88.2 Allergy status to sulfonamides; Z88.1 Allergy status to other antibiotic agents
CPT/HCPCS: 36415; 71046; 80048; 84484; 85025; 93005; 96372; 99285-25; A9270-GY; J2270; J3410

== ENCOUNTER 2020-09-27 16:02 | Emergency (ER) | payer MEDICARE ==
[2020-09-27] MEDS ORDERED: traMADol 50 MG Tab PO ONE ×2 (16:03→16:25)
--- NOTE | 2020-09-27 16:14 | EDM.PDOC ---
ED HPI GENERAL MEDICAL PROBLEM - General Stated Complaint: Chest pain Time Seen by Provider: 09/27/20 16:10 Source of Information: Reports: Patient History Limitations: Reports: No Limitations - History of Present Illness INITIAL COMMENTS - FREE TEXT/NARRATIVE: 74-year-old female who presents to the emergency department reporting left-sided chest pain. This pain is a sharp pain that is worse with palpation, movement and with deep breaths. It is similar to pain that she has had during multiple visits over the past few months. She also noted that her heart rate was up in the 100- 150 range. She is currently rating the pain in her chest as a 9/10. She has had no nausea or vomiting. She has been able to eat and drink. No fevers or chills. No hemoptysis. She does not feel short of breath. She does state that she has been taking her medications as directed by her doctor. She states that the pain began at 1 PM but when pressed about this it really is the same pain that she has been having for quite some time and it just seems to be more worse today than previous. She also does not have any tramadol to take for her pain. There are no other associated signs or symptoms. There are no other modifying factors. Onset: Today (1 PM) Duration: Getting Worse Location: Reports: Chest Quality: Reports: Sharp Severity: Moderate (to severe) Improves with: Reports: Immobilization, Rest Worsens with: Reports: Breathing, Other (Palpation), Movement Context: Reports: Other (As above. 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 (see below) (Nothing.) mid upper left chest Pain Score (Numeric/FACES): 8 - Related Data Allergies Allergy/AdvReac Type Severity Reaction Status Date / Time ciprofloxacin [From Cipro] Allergy Itching Verified 09/27/20 18:24 erythromycin base Allergy Hives Verified 09/27/20 18:24 [Erythromycin Base] ibuprofen Allergy Other Verified 09/27/20 18:24 Influenza Virus Vaccines Allergy Nausea and Verified 09/27/20 18:24 Vomiting ketorolac [From Toradol] Allergy Nausea and Verified 09/27/20 18:24 Vomiting NSAIDS (Non-Steroidal Allergy Other Verified 09/27/20 18:24 Anti-Inflamma Penicillins Allergy Hives Verified 09/27/20 18:24 Sulfa (Sulfonamide Allergy Hives Verified 09/27/20 18:24 Antibiotics) Tetracyclines Allergy Hives Verified 09/27/20 18:24 Home Meds: Home Meds Apixaban [Eliquis] 5 mg PO BID 07/07/20 [History] Lansoprazole 15 mg PO DAILY 07/07/20 [History] busPIRone [Buspar] 2.5 mg PO BID 30 Days #60 tablet 07/17/20 [Rx] Acetaminophen 500 mg PO Q6HR PRN 08/24/20 [History] Cyanocobalamin (Vitamin B-12) [Cyanocobalamin Injection] 1,000 mcg IM Q30D 08/24/20 [History] Metoprolol Tartrate [Lopressor] 12.5 mg PO BID 08/24/20 [History] Multivitamin with Iron [Multivitamins with Iron] 1 tab PO DAILY 08/24/20 [History] Temazepam 30 mg PO BEDTIME 08/24/20 [History] Digoxin [Lanoxin] 125 mcg PO DAILY 09/22/20 [History] Past Medical History HEENT History: Reports: Cataract, Hard of Hearing, Other (See Below) Other HEENT History: Dry eyes. Left cochlear implant. Wears hearing aid. Cardiovascular History: Reports: Afib, Arrhythmia, Heart Failure, Heart Murmur, Hypertension, SC, Other (See Below) Other Cardiovascular History: Aortic stenosis. Ascending aorta dilation. Diastolic dysfunction. Peripheral vascular disease. Respiratory History: Reports: PE, Pneumonia, Recurrent, SOB, Other (See Below) Other Respiratory History: Pulmonary nodule. Gastrointestinal History: Reports: GERD, PUD, Other (See Below) Other Gastrointestinal History: History of abdominal fistula. History of bleeding ulcer and stomach abscess. History of exploratory laparotomy. Genitourinary History: Reports: UTI, Recurrent, Other (See Below) Other Genitourinary History: Cyst on right kidney. 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 History of fracture right hip, left femur, left wrist. Neurological History: Reports: Neuropathy, Peripheral Other Neuro History: Bilateral peripheral neuropathy. Psychiatric History: Reports: Anxiety, Depression Other Psychiatric History: Insomnia. Endocrine/Metabolic History: Reports: Obesity/BMI 30+, Osteoporosis Other Endocrine/Metabolic History: Impaired glucose tolerance. Hematologic History: Reports: Anemia, Anticoagulation Therapy, Blood Transfusion(s) Dermatologic History: Reports: Cellulitis - Infectious Disease History Infectious Disease History: Reports: Measles, Mumps, Novel Coronavirus Other Infectious Disease History: Staph infection right ear, unsure if MRSA. - Past Surgical History Head Surgeries/Procedures: Reports: None HEENT Surgical History: Reports: Cataract Surgery, Oral Surgery Other HEENT Surgeries/Procedures: bilat cataract surgery, Cardiovascular Surgical History: Reports: None Respiratory Surgical History: Reports: None GI Surgical History: Reports: Appendectomy, Bariatric Procedure, Cholecy stectomy, Colonoscopy, EGD, Other (See Below) Other GI Surgeries/Procedures: abd fistula repaired, 09/04/2019. splenectomy . Gastric bypass revision Female Surgical History: Reports: Hysterectomy, Salpingo-Oophorectomy, Tubal Ligation Endocrine Surgical History: Reports: None Neurological Surgical History: Reports: None Musculoskeletal Surgical History: Reports: Carpal Tunnel, Hip Replacement, ORIF, Shoulder Surgery Other Musculoskeletal Surgeries/Procedures:: bilat SHOULDER ARTHROPLASTY, ORIF to L wrist, pins removed, Social & Family History - Family History HEENT: Reports: Glaucoma, Macular Degeneration Cardiac: Reports: Hypertension Endocrine/Metabolic: Reports: Diabetes Mellitus, Type 3c Oncologic: Reports: Brain, Colon, Lung Other Oncologic Family History: Throat. Liver. Stomach. - Tobacco Use Tobacco Use Status *Q: Never Tobacco User - Caffeine Use Caffeine Use: Reports: None Other Caffeine Use: states that she takes powerade. - Alcohol Use Alcohol Use History: No - Living Situation & Occupation Living situation: Reports: Alone Occupation: Retired ED ROS GENERAL - Review of Systems Review Of Systems: See Below Constitutional: Denies: Fever, Chills HEENT: Denies: Throat Pain, Throat Swelling Respiratory: Reports: Pleuritic Chest Pain. Denies: Shortness of Breath, Cough, Hemoptysis Cardiovascular: Reports: Chest Pain, Palpitations (Fast heart rate) Endocrine: Denies: Polydypsia, Polyuria GI/Abdominal: Reports: Nausea (Intermittent). Denies: Vomiting : Denies: Dysuria, Hematuria Musculoskeletal: Denies: Arm Pain, Back Pain Skin: Denies: Diaphoresis, Rash Neurological: Denies: Confusion, Dizziness, Headache Hematologic/Lymphatic: Reports: Easy Bleeding (Chronically anticoagulated with Eliquis) ED EXAM, GENERAL - Physical Exam Exam: See Below Exam Limited By: No Limitations General Appearance: Alert, WD/WN, Mild Distress (Beers and some pain. She is nontoxic and has no respiratory distress) Eye Exam: Bilateral Eye: EOMI, Normal Inspection (Sclera are anicteric) Ears: Normal External Exam, Hearing Loss (Chronic.) Ear Exam: Bilateral Ear: Auricle Normal Nose: Normal Inspection, Normal Mucosa, No Blood Throat/Mouth: Normal Voice, No Airway Compromise, Other (Edentulous) Head: Atraumatic, Normocephalic Neck: Normal Inspection, Supple, Non-Tender, Full Range of Motion Respiratory/Chest: No Respiratory Distress, Lungs Clear, Normal Breath Sounds, No Accessory Muscle Use, Other (Tender to palpation over her left chest which completely reproduces the pain in her chest that she is complaining of.) Cardiovascular: Normal Peripheral Pulses, Tachycardia, Irregularly Irregular Peripheral Pulses: 2+: Radial (L), Radial (R), Dorsalis Pedis (L), Dorsalis Pedis (R) GI/Abdominal: Normal Bowel Sounds, Soft, Non-Tender, No Mass Back Exam: Normal Inspection Extremities: Normal Inspection, Normal Range of Motion, Non-Tender, No Pedal Edema, Normal Capillary Refill Neurological: Alert, Oriented, CN II-XII Intact, Normal Cognition, No Motor/Sensory Deficits (She is somewhat hard appearing but this is chronic.) Psychiatric: Depressed Mood (Chronic. Denies any suicidal ideation.) Skin Exam: Warm, Dry, Intact, No Rash, Pallor (This is chronic.) #1 Interpretation EKG Date: 09/27/20 Time: 16:01 Rhythm: Other (Sinus rhythm with intermittent atrial fibrillation) Rate (Beats/Min): 154 [place]: Normal P-Wave: Present (Intermittently) QRS: Other (LVH) ST-T: Other (Repolarization abnormality secondary to LVH.) QT: Normal Comparison: Change From Previous EKG (Compared to an EKG performed on 09/22/2020, she now has A. fib with RVR intermittently with sinus tach. Otherwise, and there are no changes.) Course - Vital Signs Last Recorded V/S: Last Vital Signs Temp 36.6 C 09/27/20 16:05 Pulse 122 H 09/27/20 16:31 Resp 15 09/27/20 16:50 BP 118/85 09/27/20 17:15 Pulse Ox 97 09/27/20 16:50 - Orders/Labs/Meds Orders: Active Orders 24 hr Category Date Time Status EKG Documentation Completion [RC] ASDIRECTED Care 09/27/20 16:16 Active Chest 1V Frontal [CR] Stat Exams 09/27/20 16:28 Taken Potassium Chloride [Klor-Con] Med 09/27/20 18:00 Active 40 meq PO ASDIRECTED EKG 12 Lead [EK] Routine Ther 09/27/20 16:15 Ordered Medication Orders Potassium Chloride (Potassium Chloride 20 Meq Packet) 40 meq PO ASDIRECTED ED Last Admin: 09/27/20 18:09 Dose: 40 meq Documented by: SLOANE Labs: Laboratory Tests 09/27/20 09/27/20 09/27/20 Range/Units 16:30 16:30 16:30 WBC 6.6 (3.0-10.3) x10-3/uL RBC 4.46 (3.60-5.20) x10(6)uL Hgb 12.3 (11.4-15.5) g/dL Hct 38.8 (34.2-48.2) % MCV 86.9 (76.7-100.5) fL MCH 27.6 (23.9-33.9) pg MCHC 31.8 L (31.9-34.8) g/dL RDW 21.7 H (12.3-16.5) % Plt Count 222 (151-488) x10(3)uL MPV 10.5 (7.1-12.4) fL Neut % (Auto) 55.9 (30.8-76.2) % Lymph % (Auto) 27.3 (18.4-52.1) % [place]ansom % (Auto) 13.5 (4.4-15.7) % Eos % (Auto) 2.0 (0.6-8.1) % Baso % (Auto) 1.3 (0.2-1.5) % Neut # (Auto) 3.7 (1.5-6.3) x10-3/uL Lymph # (Auto) 1.8 (1.0-4.4) x10-3/uL Ransom # (Auto) 0.9 (0.3-1.0) x10-3/uL Eos # (Auto) 0.1 (0.0-0.8) x10-3/uL Baso # (Auto) 0.1 (0.0-0.1) x10-3/uL Sodium 147 H (135-145) mmol/L Potassium 3.2 L (3.5-5.3) mmol/L Chloride 107 (100-110) mmol/L Carbon Dioxide 29 (21-32) mmol/L BUN 8 (7-18) mg/dL Creatinine 0.7 (0.55-1.02) mg/dL Est Cr Clr Drug Dosing TNP Estimated GFR (MDRD) > 60 (>60) BUN/Creatinine Ratio 11.4 (9-20) Glucose 87 (80-116) mg/dL Calcium 9.4 (8.6-10.2) mg/dL Magnesium 1.8 (1.8-2.5) mg/dL Total Bilirubin 0.7 (0.1-1.3) mg/dL AST 36 H D (5-25) IU/L ALT 27 (12-36) U/L Alkaline Phosphatase 118 H (56-112) IU/L Troponin I 15.2 (4.0-60.3) pg/mL Total Protein 6.9 (6.0-8.0) g/dL Albumin 3.1 L (3.2-4.6) g/dL Globulin 3.8 g/dL Albumin/Globulin Ratio 0.8 Meds: Medications Generic Name Dose Route Start Last Admin Trade Name Freq PRN Reason Stop Dose Admin Potassium Chloride 40 meq 09/27/20 18:00 09/27/20 18:09 Potassium Chloride 20 Meq Packet PO 40 meq ASDIRECTED ED Administration Discontinued Medications Generic Name Dose Route Start Last Admin Trade Name Freq PRN Reason Stop Dose Admin Metoprolol Tartrate 25 mg 09/27/20 16:16 Metoprolol Tartrate 25 Mg Tab PO 09/27/20 16:17 ONETIME ONE Metoprolol Tartrate 5 mg 09/27/20 16:24 09/27/20 16:31 Metoprolol Tartrate 5 Mg/5 Ml Sdv IVPUSH 09/27/20 16:25 5 mg ONETIME ONE Administration Tramadol HCl 50 mg 09/27/20 16:25 09/27/20 16:31 Tramadol 50 Mg Tab PO 09/27/20 16:26 50 mg ONETIME ONE Administration - Radiology Interpretation Free Text/Narrative:: Portable chest x-ray shows no acute disease. - Re-Assessments/Exams Free Text/Narrative Re-Assessment/Exam: 09/27/20 18:20: All of the patient's blood tests were reassuring. Her potassium was slightly low at 2.2. She was given 40 mEq of oral potassium and she tolerated this well. After the Lopressor 5 mg IV was given, her pulse rate settled into the 70-100 range and at present appears to be in a normal sinus rhythm with a rate of 70-80. Her blood pressure has been in the 120 systolic range. She does report that the pain in her chest is less. The pain is completely reproducible with palpation. Her O2 saturations are normal. Her troponin was normal as well. Her chest x-ray was normal This does not appear to be anything related to her heart or to her lungs. This appears to be musculoskeletal in nature and it was present when I saw her during the visit that she had on 09/08/2020. The patient tells me that she is taking her medications as directed but I have some concerns that she is missing doses at times. She assures me that she is not. She seems to have continuing problems with pain control and we discussed this at length. I have told her that she will need to follow-up with her primary provider in regard to her chronic pain control. She is to follow-up with Dr. Johnson or Dr. Camarena in regard to this. I did give her a take-home pack of tramadol today. Departure - Departure Time of Disposition: 18:45 Disposition: Home, Self-Care 01 Condition: Good (Improved) Clinical Impression: Musculoskeletal chest pain Atrial fibrillation Qualifiers: Atrial fibrillation type: longstanding persistent Qualified Code(s): I48.11 - Longstanding persistent atrial fibrillation Chronic pain Qualifiers: Chronic pain type: other chronic pain Qualified Code(s): G89.29 - Other chronic pain - Discharge Information Instructions: Chest Wall Pain, [id number], Chronic Pain, Adult Referrals: Casa Camarena MD [Primary Care Provider] - Forms: ED Department Discharge Additional Instructions: You need to continue to take your medications as prescribed by your doctor. You can use the tramadol as needed for moderate to severe pain you will need to follow-up with your primary provider for any ongoing chronic pain management. Back to the emergency department for persisting fast heart rate rate, severe weakness, unrelenting vomiting, worse breathing or any other concerning signs or symptoms. Sepsis Event Note (ED) - Focused Exam Vital Signs: Vital Signs Temp Pulse Pulse Resp BP BP Pulse Ox 09/27/20 17:15 118/85 09/27/20 17:00 124/78 09/27/20 16:50 15 115/84 97 09/27/20 16:40 18 121/67 98 09/27/20 16:31 122 H 167/88 H 09/27/20 16:30 18 138/76 97 09/27/20 16:05 36.6 C 148 H 16 126/100 H 94 L - My Orders Last 24 Hours: My Active Orders 09/27/20 16:15 EKG 12 Lead [EK] Routine 09/27/20 16:16 EKG Documentation Completion [RC] ASDIRECTED 09/27/20 16:28 Chest 1V Frontal [CR] Stat 09/27/20 18:00 Potassium Chloride [Klor-Con] 40 meq PO ASDIRECTED - Assessment/Plan Last 24 Hours: My Active Orders 09/27/20 16:15 EKG 12 Lead [EK] Routine 09/27/20 16:16 EKG Documentation Completion [RC] ASDIRECTED 09/27/20 16:28 Chest 1V Frontal [CR] Stat 09/27/20 18:00 Potassium Chloride [Klor-Con] 40 meq PO ASDIRECTED
[2020-09-27] MEDS ORDERED: Metoprolol Tartrate 25 MG Tab PO ONE (16:16)
[2020-09-27] MEDS ORDERED: Metoprolol Tartrate 5 MG/5 ML SDV IVPUSH ONE (16:24)
[2020-09-27] MEDS ORDERED: Potassium Chloride 20 MEQ Packet PO SCH (18:00)
[2020-09-27 18:24] VITALS: PULSE 148
[2020-09-27 19:23] VITALS: BP 123/72
--- NOTE | 2020-09-29 09:59 | CR ---
INDICATION: Chest pain. CHEST ONE VIEW: Portable AP upright view of the chest 09/27/20 was compared with 09/22/20 and 08/25/20. Relatively poor inspiration is noted without a definite active infiltrate or effusion. The heart did not appear enlarged. The aorta is tortuous with calcification in the arch. A mild dextroconvex scoliosis of the lower middle thoracic spine is noted. Bilateral reverse total shoulder arthroplasties are noted as previously. Overlying EKG leads are noted. Elevated right hemidiaphragm most likely is anatomic. IMPRESSION: No acute process. MTDD
== END 2020-09-27 19:10 | disposition home or self-care (01) ==
LOC: FB.ED 16:02
DX: I48.11 Longstanding persistent atrial fibrillation (principal); R07.89 Other chest pain; G89.29 Other chronic pain; I11.0 Hypertensive heart disease with heart failure; I50.9 Heart failure, unspecified; I25.2 Old myocardial infarction; Z86.711 Personal history of pulmonary embolism; K21.9 Gastro-esophageal reflux disease without esophagitis; M19.90 Unspecified osteoarthritis, unspecified site; E66.9 Obesity, unspecified; Z68.25 Body mass index [BMI] 25.0-25.9, adult; Z79.01 Long term (current) use of anticoagulants; Z88.1 Allergy status to other antibiotic agents; Z88.6 Allergy status to analgesic agent; Z88.7 Allergy status to serum and vaccine; Z88.0 Allergy status to penicillin; Z88.2 Allergy status to sulfonamides; Z79.899 Other long term (current) drug therapy
CPT/HCPCS: 36415; 71045; 80053; 83735; 84484; 85025; 93005; 96374; 99285; A9270; J3490

== ENCOUNTER 2020-10-03 12:34 | Emergency (ER) | payer MEDICARE ==
[2020-10-03] MEDS ORDERED: Sodium Chloride 0.9% 10 ML Syringe FLUSH PRN (13:02)
[2020-10-03] MEDS ORDERED: Morphine 2 MG/ML SYRINGE IVPUSH STA (13:04)
[2020-10-03 13:11] VITALS: BP 116/44; PULSE 72
[2020-10-03] MEDS ORDERED: Sodium Chloride 0.9% 1,000 ML IV SCH (13:15)
[2020-10-03] MEDS ORDERED: Iopamidol 755 Mg/ML 100 ML Bottle IV ONE (14:07)
--- NOTE | 2020-10-03 16:14 | EDM.PDOC ---
ED HPI GENERAL MEDICAL PROBLEM - General Chief Complaint: Gastrointestinal Problem Stated Complaint: STOMACH PAINS Time Seen by Provider: 10/03/20 13:15 Source of Information: Reports: Patient History Limitations: Reports: No Limitations - History of Present Illness INITIAL COMMENTS - FREE TEXT/NARRATIVE: Patient presented to the ED because of epigastric pain for 2 days, N/V x1 and couldn't keep anything down. The pain is sharp and burning,8-9/10. There is no changes in bowel movements or urinary symptoms. - Related Data Allergies Allergy/AdvReac Type Severity Reaction Status Date / Time ciprofloxacin [From Cipro] Allergy Itching Verified 09/27/20 18:24 erythromycin base Allergy Hives Verified 09/27/20 18:24 [Erythromycin Base] ibuprofen Allergy Other Verified 09/27/20 18:24 Influenza Virus Vaccines Allergy Nausea and Verified 09/27/20 18:24 Vomiting ketorolac [From Toradol] Allergy Nausea and Verified 09/27/20 18:24 Vomiting NSAIDS (Non-Steroidal Allergy Other Verified 09/27/20 18:24 Anti-Inflamma Penicillins Allergy Hives Verified 09/27/20 18:24 Sulfa (Sulfonamide Allergy Hives Verified 09/27/20 18:24 Antibiotics) Tetracyclines Allergy Hives Verified 09/27/20 18:24 Home Meds: Home Meds Apixaban [Eliquis] 5 mg PO BID 07/07/20 [History] Lansoprazole 15 mg PO DAILY 07/07/20 [History] busPIRone [Buspar] 2.5 mg PO BID 30 Days #60 tablet 07/17/20 [Rx] Acetaminophen 500 mg PO Q6HR PRN 08/24/20 [History] Cyanocobalamin (Vitamin B-12) [Cyanocobalamin Injection] 1,000 mcg IM Q30D 08/24/20 [History] Metoprolol Tartrate [Lopressor] 12.5 mg PO BID 08/24/20 [History] Multivitamin with Iron [Multivitamins with Iron] 1 tab PO DAILY 08/24/20 [History] Temazepam 30 mg PO BEDTIME 08/24/20 [History] Digoxin [Lanoxin] 125 mcg PO DAILY 09/22/20 [History] Ondansetron [Zofran ODT] 4 mg PO Q4H PRN #5 tab.dis 10/03/20 [Rx] traMADol [Ultram] 50 mg PO Q8H PRN #10 tab 10/03/20 [Rx] Past Medical History HEENT History: Reports: Cataract, Hard of Hearing, Other (See Below) Other HEENT History: Dry eyes. Left cochlear implant. Wears hearing aid. Cardiovascular History: Reports: Afib, Arrhythmia, Heart Failure, Heart Murmur, Hypertension, [place], Other (See Below) Other Cardiovascular History: Aortic stenosis. Ascending aorta dilation. Diastolic dysfunction. Peripheral vascular disease. Respiratory History: Reports: PE, Pneumonia, Recurrent, SOB, Other (See Below) Other Respiratory History: Pulmonary nodule. Gastrointestinal History: Reports: GERD, PUD, Other (See Below) Other Gastrointestinal History: History of abdominal fistula. History of bleeding ulcer and stomach abscess. History of exploratory laparotomy. Genitourinary History: Reports: UTI, Recurrent, Other (See Below) Other Genitourinary History: Cyst on right kidney. [employer] History: Reports: Other [employer] History: Musculoskeletal History: Reports: Arthritis, Fracture, Osteoporosis Other Musculoskeletal History: Lumbago. History of fracture right hip, left femur, left wrist. Neurological History: Reports: Neuropathy, Peripheral Other Neuro History: Bilateral peripheral neuropathy. Psychiatric History: Reports: Anxiety, Depression Other Psychiatric History: Insomnia. Endocrine/Metabolic History: Reports: Obesity/BMI 30+, Osteoporosis Other Endocrine/Metabolic History: Impaired glucose tolerance. Hematologic History: Reports: Anemia, Anticoagulation Therapy, Blood Transfusion(s) Dermatologic History: Reports: Cellulitis - Infectious Disease History Infectious Disease History: Reports: Measles, Mumps, Novel Coronavirus Other Infectious Disease History: Staph infection right ear, unsure if MRSA. - Past Surgical History Head Surgeries/Procedures: Reports: None HEENT Surgical History: Reports: Cataract Surgery, Oral Surgery Other HEENT Surgeries/Procedures: bilat cataract surgery, Cardiovascular Surgical History: Reports: None Respiratory Surgical History: Reports: None GI Surgical History: Reports: Appendectomy, Bariatric Procedure, Cholecystectomy, Colonoscopy, EGD, Other (See Below) Other GI Surgeries/Procedures: abd fistula repaired, 09/04/2019. splenectomy . Gastric bypass revision Female Surgical History: Reports: Hysterectomy, Salpingo-Oophorectomy, Tubal Ligation Endocrine Surgical History: Reports: None Neurological Surgical History: Reports: None Musculoskeletal Surgical History: Reports: Carpal Tunnel, Hip Replacement, ORIF, Shoulder Surgery Other Musculoskeletal Surgeries/Procedures:: bilat SHOULDER ARTHROPLASTY, ORIF to L wrist, pins removed, Social & Family History - Family History Family Medical History: No Pertinent Family History HEENT: Reports: Glaucoma, Macular Degeneration Cardiac: Reports: Hypertension Endocrine/Metabolic: Reports: Diabetes Mellitus, Type 3c Oncologic: Reports: Brain, Colon, Lung Other Oncologic Family History: Throat. Liver. Stomach. - Tobacco Use Tobacco Use Status *Q: Unknown Ever Used Tobacco - Caffeine Use Caffeine Use: Reports: None Other Caffeine Use: states that she takes powerade. - Recreational Drug Use Recreational Drug Use: No - Living Situation & Occupation Living situation: Reports: Alone Occupation: Retired ED ROS GENERAL - Review of Systems Review Of Systems: See Below Constitutional: Reports: No Symptoms HEENT: Reports: No Symptoms Respiratory: Reports: No Symptoms Cardiovascular: Reports: No Symptoms Endocrine: Reports: No Symptoms GI/Abdominal: Reports: Abdominal Pain, Nausea, Vomiting : Reports: No Symptoms Musculoskeletal: Reports: No Symptoms Skin: Reports: No Symptoms Neurological: Reports: No Symptoms Psychiatric: Reports: No Symptoms ED EXAM, GI/ABD - Physical Exam Exam: See Below Exam Limited By: No Limitations General Appearance: Alert, No Apparent Distress Ears: Normal External Exam, Normal Canal Nose: Normal Inspection, Normal Mucosa, No Blood Throat/Mouth: Normal Inspection, Normal Lips, Normal Teeth, Normal Gums Head: Atraumatic, Normocephalic Neck: Normal Inspection, Supple, Non-Tender Respiratory/Chest: No Respiratory Distress, Lungs Clear, Normal Breath Sounds, No Accessory Muscle Use Cardiovascular: Normal Peripheral Pulses, Regular Rate, Rhythm, No Edema, No Gallop, No JVD, No Murmur GI/Abdominal Exam: Normal Bowel Sounds, Soft, Other (epigastric tenderness) Back Exam: Normal Inspection, Full Range of Motion Extremities: Normal Inspection, Normal Range of Motion, Non-Tender Neurological: Alert, Oriented, CN II-XII Intact Psychiatric: Normal Affect, Normal Mood Skin Exam: Warm Course - Vital Signs Text/Narrative:: Lab/CT result was reviewed NS 1 L bolus Morphine 2 mg IV x1 Last Recorded V/S: Last Vital Signs Temp 37.6 C 10/03/20 13:09 Pulse 72 10/03/20 13:09 Resp 18 10/03/20 13:09 BP 116/44 L 10/03/20 13:09 Pulse Ox 98 10/03/20 13:09 - Orders/Labs/Meds Orders: Active Orders 24 hr Category Date Time Status Abdomen Pelvis w Cont [CT] Stat Exams 10/03/20 13:51 Taken Sodium Chloride 0.9% [Normal Saline] 1,000 ml Med 10/03/20 13:15 Active IV ASDIRECTED Sodium Chloride 0.9% [Saline Flush] Med 10/03/20 13:02 Active 10 ml FLUSH ASDIRECTED PRN Saline Lock Insert [OM.PC] Routine Oth 10/03/20 13:02 Ordered Medication Orders Sodium Chloride (Normal Saline) 1,000 mls @ 999 mls/hr IV ASDIRECTED ED Last Admin: 10/03/20 13:43 Dose: 999 mls/hr Documented by: DIONI Sodium Chloride (Sodium Chloride 0.9% 10 Ml Syringe) 10 ml FLUSH ASDIRECTED PRN PRN Reason: Keep Vein Open Last Admin: 10/03/20 13:38 Dose: 10 ml Documented by: DIONI Labs: Laboratory Tests 10/03/20 10/03/20 10/03/20 Range/Units 13:18 13:20 13:20 WBC 7.1 (3.0-10.3) x10-3/uL RBC 4.16 (3.60-5.20) x10(6)uL Hgb 11.4 (11.4-15.5) g/dL Hct 35.9 (34.2-48.2) % MCV 86.3 (76.7-100.5) fL MCH 27.4 (23.9-33.9) pg MCHC 31.7 L (31.9-34.8) g/dL RDW 21.5 H (12.3-16.5) % Plt Count 267 (151-488) x10(3)uL MPV 10.0 (7.1-12.4) fL Neut % (Auto) 63.7 (30.8-76.2) % Lymph % (Auto) 24.1 (18.4-52.1) % [place] % (Auto) 10.0 (4.4-15.7) % Eos % (Auto) 1.5 (0.6-8.1) % Baso % (Auto) 0.7 (0.2-1.5) % Neut # (Auto) 4.5 (1.5-6.3) x10-3/uL Lymph # (Auto) 1.7 (1.0-4.4) x10-3/uL [place] # (Auto) 0.7 (0.3-1.0) x10-3/uL Eos # (Auto) 0.1 (0.0-0.8) x10-3/uL Baso # (Auto) 0.0 (0.0-0.1) x10-3/uL Sodium 143 (135-145) mmol/L Potassium 4.4 D (3.5-5.3) mmol/L Chloride 104 (100-110) mmol/L Carbon Dioxide 29 (21-32) mmol/L BUN 12 (7-18) mg/dL Creatinine 0.7 (0.55-1.02) mg/dL Est Cr Clr Drug Dosing TNP Estimated GFR (MDRD) > 60 (>60) BUN/Creatinine Ratio 17.1 (9-20) Glucose 102 (80-116) mg/dL Calcium 9.3 (8.6-10.2) mg/dL Total Bilirubin 0.5 (0.1-1.3) mg/dL AST 47 H D (5-25) IU/L ALT 42 H D (12-36) U/L Alkaline Phosphatase 142 H (56-112) IU/L Total Protein 7.0 (6.0-8.0) g/dL Albumin 3.0 L (3.2-4.6) g/dL Globulin 4.0 g/dL Albumin/Globulin Ratio 0.8 Amylase 21 L (25-115) U/L Lipase 15 L (73-393) U/L Urine Color (YELLOW) Urine Appearance (CLEAR) Urine pH (5.0-6.5) Ur Specific [place] (1.010-1.025) Urine Protein (NEGATIVE) mg/dL Urine Glucose (UA) (NORMAL) mg/dL Urine Ketones (NEGATIVE) mg/dL Urine Occult Blood (NEGATIVE) Urine Nitrite (NEGATIVE) Urine Bilirubin (NEGATIVE) Urine Urobilinogen (NEGATIVE) mg/dL Ur Leukocyte Esterase (NEGATIVE) Urine RBC (0-5) Urine WBC (0-5) Ur Squamous Epith Cells (NS,R,O) Urine Bacteria (NS) 07/16/21 Range/Units 15:45 WBC (3.0-10.3) x10-3/uL RBC (3.60-5.20) x10(6)uL Hgb (11.4-15.5) g/dL Hct (34.2-48.2) % MCV (76.7-100.5) fL MCH (23.9-33.9) pg MCHC (31.9-34.8) g/dL RDW (12.3-16.5) % Plt Count (151-488) x10(3)uL MPV (7.1-12.4) fL Neut % (Auto) (30.8-76.2) % Lymph % (Auto) (18.4-52.1) % [place] % (Auto) (4.4-15.7) % Eos % (Auto) (0.6-8.1) % Baso % (Auto) (0.2-1.5) % Neut # (Auto) (1.5-6.3) x10-3/uL Lymph # (Auto) (1.0-4.4) x10-3/uL [place] # (Auto) (0.3-1.0) x10-3/uL Eos # (Auto) (0.0-0.8) x10-3/uL Baso # (Auto) (0.0-0.1) x10-3/uL Sodium (135-145) mmol/L Potassium (3.5-5.3) mmol/L Chloride (100-110) mmol/L Carbon Dioxide (21-32) mmol/L BUN (7-18) mg/dL Creatinine (0.55-1.02) mg/dL Est Cr Clr Drug Dosing Estimated GFR (MDRD) (>60) BUN/Creatinine Ratio (9-20) Glucose (80-116) mg/dL Calcium (8.6-10.2) mg/dL Total Bilirubin (0.1-1.3) mg/dL AST (5-25) IU/L ALT (12-36) U/L Alkaline Phosphatase (56-112) IU/L Total Protein (6.0-8.0) g/dL Albumin (3.2-4.6) g/dL Globulin g/dL Albumin/Globulin Ratio Amylase (25-115) U/L Lipase (73-393) U/L Urine Color Yellow (YELLOW) Urine Appearance Clear (CLEAR) Urine pH 8.0 H (5.0-6.5) Ur Specific [place] 1.015 (1.010-1.025) Urine Protein Negative (NEGATIVE) mg/dL Urine Glucose (UA) Normal (NORMAL) mg/dL Urine Ketones Negative (NEGATIVE) mg/dL Urine Occult Blood Negative (NEGATIVE) Urine Nitrite Negative (NEGATIVE) Urine Bilirubin Negative (NEGATIVE) Urine Urobilinogen Normal (NEGATIVE) mg/dL Ur Leukocyte Esterase Negative (NEGATIVE) Urine RBC 0-5 (0-5) Urine WBC 0-5 (0-5) Ur Squamous Epith Cells Few H (NS,R,O) Urine Bacteria Few H (NS) Meds: Medications Generic Name Dose Route Start Last Admin Trade Name Freq PRN Reason Stop Dose Admin Sodium Chloride 1,000 mls @ 999 mls/hr 10/03/20 13:15 10/03/20 13:43 Normal Saline IV 999 mls/hr ASDIRECTED ED Administration Sodium Chloride 10 ml 10/03/20 13:02 10/03/20 13:38 Sodium Chloride 0.9% 10 Ml Syringe FLUSH 10 ml ASDIRECTED PRN Administration Keep Vein Open Discontinued Medications Generic Name Dose Route Start Last Admin Trade Name Freq PRN Reason Stop Dose Admin Iopamidol 100 ml 10/03/20 14:07 10/03/20 14:35 Iopamidol 755 Mg/Ml 100 Ml Bottle IV 10/03/20 14:08 100 ml . DIRECTED ONE Administration Morphine Sulfate 2 mg 10/03/20 13:04 10/03/20 13:54 Morphine 2 Mg/Ml Syringe IVPUSH 10/03/20 13:05 2 mg NOW STA Administration Departure - Departure Time of Disposition: 16:30 Disposition: Home, Self-Care 01 Condition: Good Clinical Impression: Chronic abdominal pain, Post gastrectomy syndrome - Discharge Information Prescriptions: traMADol [Ultram] 50 mg PO Q8H PRN #10 tab PRN Reason: Pain Ondansetron [Zofran ODT] 4 mg PO Q4H PRN #5 tab.dis PRN Reason: Nausea Instructions: Partial Gastrectomy, Abdominal Pain, Adult, [id number] Referrals: Cas[place] Camarena MD [Primary Care Provider] - Forms: ED Department Discharge Additional Instructions: Please read discharge instructions on chronic abdominal pain [place] diet Zofran ODT 4 mg every 4 hours as needed for nausea Tramadol 50 mg with tylenol 1000 mg every 8 hours as needed for pain Follow up as needed Sepsis Event Note (ED) - Evaluation Sepsis Screening Result: No Definite Risk - Focused Exam Vital Signs: Vital Signs Temp Pulse Resp BP Pulse Ox 10/03/20 13:09 37.6 C 72 18 116/44 L 98 - My Orders Last 24 Hours: My Active Orders 10/03/20 13:02 Sodium Chloride 0.9% [Saline Flush] 10 ml FLUSH ASDIRECTED PRN Saline Lock Insert [OM.PC] Routine 10/03/20 13:15 Sodium Chloride 0.9% [Normal Saline] 1,000 ml IV ASDIRECTED 10/03/20 13:51 Abdomen Pelvis w Cont [CT] Stat - Assessment/Plan Last 24 Hours: My Active Orders 10/03/20 13:02 Sodium Chloride 0.9% [Saline Flush] 10 ml FLUSH ASDIRECTED PRN Saline Lock Insert [OM.PC] Routine 10/03/20 13:15 Sodium Chloride 0.9% [Normal Saline] 1,000 ml IV ASDIRECTED 10/03/20 13:51 Abdomen Pelvis w Cont [CT] Stat
== END 2020-10-03 16:35 | disposition home or self-care (01) ==
LOC: FB.ED 12:34
DX: R10.13 Epigastric pain (principal); I11.0 Hypertensive heart disease with heart failure; I50.9 Heart failure, unspecified; I48.91 Unspecified atrial fibrillation; K21.9 Gastro-esophageal reflux disease without esophagitis; E66.9 Obesity, unspecified; Z68.30 Body mass index [BMI] 30.0-30.9, adult; Z79.899 Other long term (current) drug therapy; Z79.01 Long term (current) use of anticoagulants; Z88.0 Allergy status to penicillin; Z88.1 Allergy status to other antibiotic agents; Z88.6 Allergy status to analgesic agent; Z88.7 Allergy status to serum and vaccine; Z88.2 Allergy status to sulfonamides; Z88.8 Allergy status to other drugs, medicaments and biological substances; Z90.49 Acquired absence of other specified parts of digestive tract
CPT/HCPCS: 36415; 74177; 80053; 81001; 82150; 83690; 85025; 96361; 96374; 99284; J2270; J7030; Q9967

== ENCOUNTER 2020-11-05 21:49 | Emergency (ER) | payer MEDICARE ==
[2020-11-05] MEDS ORDERED: Metoprolol Tartrate 5 MG/5 ML SDV IVPUSH ONE (21:58)
[2020-11-05] MEDS ORDERED: Sodium Chloride 0.9% 1,000 ML IV ONE (22:09)
--- NOTE | 2020-11-05 22:15 | EDM.PDOC ---
ED HPI GENERAL MEDICAL PROBLEM - General Stated Complaint: chest pain Time Seen by Provider: 11/05/20 21:50 Source of Information: Reports: Patient History Limitations: Reports: No Limitations - History of Present Illness INITIAL COMMENTS - FREE TEXT/NARRATIVE: c/o chest wall pain onset 12h ago in morning, HR "up a little", ate 3 meals, took morning meds but not evening meds over 15 ED visits this year alone in clinic this AM, asked to be changed from trazadone to Restoril for sleep, which apparently was done, pt has h/o drug addiction and drug seeking behavior says she had soreness in chest to touch all day, heat did not help HR 130-140 this PM and EMS called had lived in [facility] until 1m ago, then moved to [facility] says her wt has gone up 5 lbs in past month since her move, clinically appears dehydrated today on Eliquis Chest Pain Score (Numeric/FACES): 10 - Related Data Allergies Allergy/AdvReac Type Severity Reaction Status Date / Time ciprofloxacin [From Cipro] Allergy Itching Verified 09/27/20 18:24 erythromycin base Allergy Hives Verified 09/27/20 18:24 [Erythromycin Base] ibuprofen Allergy Other Verified 09/27/20 18:24 Influenza Virus Vaccines Allergy Nausea and Verified 09/27/20 18:24 Vomiting ketorolac [From Toradol] Allergy Nausea and Verified 09/27/20 18:24 Vomiting NSAIDS (Non-Steroidal Allergy Other Verified 09/27/20 18:24 Anti-Inflamma Penicillins Allergy Hives Verified 09/27/20 18:24 Sulfa (Sulfonamide Allergy Hives Verified 09/27/20 18:24 Antibiotics) Tetracyclines Allergy Hives Verified 09/27/20 18:24 Home Meds: Home Meds Apixaban [Eliquis] 5 mg PO BID 07/07/20 [History] Lansoprazole 15 mg PO DAILY 07/07/20 [History] busPIRone [Buspar] 2.5 mg PO BID 30 Days #60 tablet 07/17/20 [Rx] Acetaminophen 500 mg PO Q6HR PRN 08/24/20 [History] Cyanocobalamin (Vitamin B-12) [Cyanocobalamin Injection] 1,000 mcg IM Q30D 08/24/20 [History] Metoprolol Tartrate [Lopressor] 12.5 mg PO BID 08/24/20 [History] Multivitamin with Iron [Multivitamins with Iron] 1 tab PO DAILY 08/24/20 [History] Temazepam 30 mg PO BEDTIME 08/24/20 [History] Digoxin [Lanoxin] 125 mcg PO DAILY 09/22/20 [History] Ondansetron [Zofran ODT] 4 mg PO Q4H PRN #5 tab.dis 10/03/20 [Rx] traMADol [Ultram] 50 mg PO Q8H PRN #10 tab 10/03/20 [Rx] Past Medical History HEENT History: Reports: Cataract, Hard of Hearing, Other (See Below) Other HEENT History: Dry eyes. Left cochlear implant. Wears hearing aid. Cardiovascular History: Reports: Afib, Arrhythmia, Heart Failure, Heart Murmur, Hypertension, VT, Other (See Below) Other Cardiovascular History: Aortic stenosis. Ascending aorta dilation. Diastolic dysfunction. Peripheral vascular disease. Respiratory History: Reports: PE, Pneumonia, Recurrent, SOB, Other (See Below) Other Respiratory History: Pulmonary nodule. Gastrointestinal History: Reports: GERD, PUD, Other (See Below) Other Gastrointestinal History: History of abdominal fistula. History of bleeding ulcer and stomach abscess. History of exploratory laparotomy. Genitourinary History: Reports: UTI, Recurrent, Other (See Below) Other Genitourinary History: Cyst on right kidney. ENGAGEMENT EXECUTIVE History: Reports: Other ENGAGEMENT EXECUTIVE History: Musculoskeletal History: Reports: Arthritis, Fracture, Osteoporosis Other Musculoskeletal History: Lumbago. History of fracture right hip, left femur, left wrist. Neurological History: Reports: Neuropathy, Peripheral Other Neuro History: Bilateral peripheral neuropathy. Psychiatric History: Reports: Anxiety, Depression Other Psychiatric History: Insomnia. Endocrine/Metabolic History: Reports: Obesity/BMI 30+, Osteoporosis Other Endocrine/Metabolic History: Impaired glucose tolerance. Hematologic History: Reports: Anemia, Anticoagulation Therapy, Blood Transfusion(s) Dermatologic History: Reports: Cellulitis - Infectious Disease History Infectious Disease History: Reports: Measles, Mumps, Novel Coronavirus Other Infectious Disease History: Staph infection right ear, unsure if MRSA. - Past Surgical History Head Surgeries/Procedures: Reports: None HEENT Surgical History: Reports: Cataract Surgery, Oral Surgery Other HEENT Surgeries/Procedures: bilat cataract surgery, Cardiovascular Surgical History: Reports: None Respiratory Surgical History: Reports: None GI Surgical History: Reports: Appendectomy, Bariatric Procedure, Cholecystectomy, Colonoscopy, EGD, Other (See Below) Other GI Surgeries/Procedures: abd fistula repaired, 09/04/2019. splenectomy . Gastric bypass revision Female Surgical History: Reports: Hysterectomy, Salpingo-Oophorectomy, Tubal Ligation Endocrine Surgical History: Reports: None Neurological Surgical History: Reports: None Musculoskeletal Surgical History: Reports: Carpal Tunnel, Hip Replacement, ORIF, Shoulder Surgery Other Musculoskeletal Surgeries/Procedures:: bilat SHOULDER ARTHROPLASTY, ORIF to L wrist, pins removed, Social & Family History - Family History Family Medical History: No Pertinent Family History HEENT: Reports: Glaucoma, Macular Degeneration Cardiac: Reports: Hypertension Endocrine/Metabolic: Reports: Diabetes Mellitus, Type 3c Oncologic: Reports: Brain, Colon, Lung Other Oncologic Family History: Throat. Liver. Stomach. - Caffeine Use Caffeine Use: Reports: None Other Caffeine Use: states that she takes powerade. - Living Situation & Occupation Living situation: Reports: Alone Occupation: Retired ED ROS GENERAL - Review of Systems Review Of Systems: See Below Constitutional: Reports: No Symptoms HEENT: Reports: No Symptoms Respiratory: Reports: No Symptoms. Denies: Shortness of Breath, Cough Cardiovascular: Reports: Chest Pain, Palpitations Endocrine: Reports: No Symptoms GI/Abdominal: Reports: No Symptoms : Reports: No Symptoms Musculoskeletal: Reports: No Symptoms Skin: Reports: No Symptoms Neurological: Reports: No Symptoms Psychiatric: Reports: No Symptoms Hematologic/Lymphatic: Reports: No Symptoms Immunologic: Reports: No Symptoms ED EXAM, GENERAL - Physical Exam Exam: See Below Exam Limited By: No Limitations General Appearance: Alert, WD/WN, No Apparent Distress Ears: Hearing Loss Nose: Normal Inspection Throat/Mouth: Normal Inspection, Normal Lips, Normal Voice, No Airway Compromise Head: Atraumatic, Normocephalic Neck: Normal Inspection Respiratory/Chest: No Respiratory Distress, Lungs Clear, Normal Breath Sounds, No Accessory Muscle Use. No: Respiratory Distress, Decreased Breath Sounds, Crackles, Rhonchi, Wheezing Cardiovascular: No Gallop, Tachycardia, Irregularly Irregular, Other (2/6 YELENA at LSB) GI/Abdominal: Soft, Non-Tender, No Distention Back Exam: Normal Inspection, Full Range of Motion. No: CVA Tenderness (R) Extremities: Normal Inspection, Normal Range of Motion, Non-Tender, No Pedal Edema, Other (no pretib edema, marked dec'd turgor UEs with 0.5 sec tenting) Neurological: Alert, Oriented, CN II-XII Intact, Normal Cognition, No Motor/Sensory Deficits Psychiatric: Normal Affect, Normal Mood Skin Exam: Warm, Dry, Intact, Normal Color, No Rash Lymphatic: No Adenopathy #1 Interpretation EKG Date: 11/05/20 Time: 21:48 Rhythm: A-Fib Rate (Beats/Min): 138 [place]: Normal QRS: Normal Comparison: No Change EKG Interpretation Comments: last EKG 09-27-20, in afib then with RVR and rate 154 (which corrected to 70-100 after metoprolol 5 mg IV and metoprolol 25 mg PO), NSST finding that are no change c/w previous, no acute/ischemic changes Course - Vital Signs Last Recorded V/S: Last Vital Signs Temp 37.2 C 11/05/20 23:21 Pulse 111 H 11/05/20 23:34 Resp 16 11/05/20 23:34 BP 122/82 11/05/20 23:34 Pulse Ox 98 11/05/20 23:34 - Orders/Labs/Meds Orders: Active Orders 24 hr Category Date Time Status EKG 12 Lead [EK] Routine Ther 11/05/20 21:58 Ordered Labs: Laboratory Tests 11/05/20 11/05/20 11/05/20 Range/Units 22:00 22:00 22:00 WBC 7.7 (3.0-10.3) x10-3/uL RBC 3.83 (3.60-5.20) x10(6)uL Hgb 10.5 L (11.4-15.5) g/dL Hct 33.2 L (34.2-48.2) % MCV 86.8 (76.7-100.5) fL MCH 27.4 (23.9-33.9) pg MCHC 31.5 L (31.9-34.8) g/dL RDW 20.4 H (12.3-16.5) % Plt Count 304 (151-488) x10(3)uL MPV 8.9 (7.1-12.4) fL Neut % (Auto) 51.8 (30.8-76.2) % Lymph % (Auto) 34.5 (18.4-52.1) % [place] % (Auto) 11.2 (4.4-15.7) % Eos % (Auto) 1.6 (0.6-8.1) % Baso % (Auto) 0.9 (0.2-1.5) % Neut # (Auto) 4.0 (1.5-6.3) x10-3/uL Lymph # (Auto) 2.7 (1.0-4.4) x10-3/uL [place] # (Auto) 0.9 (0.3-1.0) x10-3/uL Eos # (Auto) 0.1 (0.0-0.8) x10-3/uL Baso # (Auto) 0.1 (0.0-0.1) x10-3/uL Sodium 142 (135-145) mmol/L Potassium 3.8 (3.5-5.3) mmol/L Chloride 106 (100-110) mmol/L Carbon Dioxide 29 (21-32) mmol/L BUN 14 (7-18) mg/dL Creatinine 0.8 (0.55-1.02) mg/dL Est Cr Clr Drug Dosing TNP Estimated GFR (MDRD) > 60 (>60) BUN/Creatinine Ratio 17.5 (9-20) Glucose 85 (80-116) mg/dL Calcium 9.0 (8.6-10.2) mg/dL Magnesium (1.8-2.5) mg/dL Total Bilirubin 0.4 (0.1-1.3) mg/dL AST 21 D (5-25) IU/L ALT 22 D (12-36) U/L Alkaline Phosphatase 122 H (56-112) IU/L Troponin I 19.3 (4.0-60.3) pg/mL C-Reactive Protein < 0.2 L (0.5-0.9) mg/dL Total Protein 6.9 (6.0-8.0) g/dL Albumin 3.4 (3.2-4.6) g/dL Globulin 3.5 g/dL Albumin/Globulin Ratio 1.0 Urine Color (YELLOW) Urine Appearance (CLEAR) Urine pH (5.0-6.5) Ur Specific [place] (1.010-1.025) Urine Protein (NEGATIVE) mg/dL Urine Glucose (UA) (NORMAL) mg/dL Urine Ketones (NEGATIVE) mg/dL Urine Occult Blood (NEGATIVE) Urine Nitrite (NEGATIVE) Urine Bilirubin (NEGATIVE) Urine Urobilinogen (NEGATIVE) mg/dL Ur Leukocyte Esterase (NEGATIVE) Urine RBC (0-5) Urine WBC (0-5) Ur Squamous Epith Cells (NS,R,O) Urine Bacteria (NS) 11/05/20 11/05/20 Range/Units 22:17 22:40 WBC (3.0-10.3) x10-3/uL RBC (3.60-5.20) x10(6)uL Hgb (11.4-15.5) g/dL Hct (34.2-48.2) % MCV (76.7-100.5) fL MCH (23.9-33.9) pg MCHC (31.9-34.8) g/dL RDW (12.3-16.5) % Plt Count (151-488) x10(3)uL MPV (7.1-12.4) fL Neut % (Auto) (30.8-76.2) % Lymph % (Auto) (18.4-52.1) % [place] % (Auto) (4.4-15.7) % Eos % (Auto) (0.6-8.1) % Baso % (Auto) (0.2-1.5) % Neut # (Auto) (1.5-6.3) x10-3/uL Lymph # (Auto) (1.0-4.4) x10-3/uL [place] # (Auto) (0.3-1.0) x10-3/uL Eos # (Auto) (0.0-0.8) x10-3/uL Baso # (Auto) (0.0-0.1) x10-3/uL Sodium (135-145) mmol/L Potassium (3.5-5.3) mmol/L Chloride (100-110) mmol/L Carbon Dioxide (21-32) mmol/L BUN (7-18) mg/dL Creatinine (0.55-1.02) mg/dL Est Cr Clr Drug Dosing Estimated GFR (MDRD) (>60) BUN/Creatinine Ratio (9-20) Glucose (80-116) mg/dL Calcium (8.6-10.2) mg/dL Magnesium 1.8 (1.8-2.5) mg/dL Total Bilirubin (0.1-1.3) mg/dL AST (5-25) IU/L ALT (12-36) U/L Alkaline Phosphatase (56-112) IU/L Troponin I (4.0-60.3) pg/mL C-Reactive Protein (0.5-0.9) mg/dL Total Protein (6.0-8.0) g/dL Albumin (3.2-4.6) g/dL Globulin g/dL Albumin/Globulin Ratio Urine Color Yellow (YELLOW) Urine Appearance Clear (CLEAR) Urine pH 7.0 H (5.0-6.5) Ur Specific [place] 1.015 (1.010-1.025) Urine Protein Negative (NEGATIVE) mg/dL Urine Glucose (UA) Normal (NORMAL) mg/dL Urine Ketones Negative (NEGATIVE) mg/dL Urine Occult Blood Negative (NEGATIVE) Urine Nitrite Negative (NEGATIVE) Urine Bilirubin Negative (NEGATIVE) Urine Urobilinogen Normal (NEGATIVE) mg/dL Ur Leukocyte Esterase Negative (NEGATIVE) Urine RBC 0-5 (0-5) Urine WBC 0-5 (0-5) Ur Squamous Epith Cells Few H (NS,R,O) Urine Bacteria Few H (NS) Meds: Medications Discontinued Medications Generic Name Dose Route Start Last Admin Trade Name Freq PRN Reason Stop Dose Admin Acetaminophen 1,000 mg 11/05/20 22:50 11/05/20 23:00 Acetaminophen 500 Mg Tab PO 11/05/20 22:51 1,000 mg ONETIME ONE Administration Sodium Chloride 1,000 mls @ 999 mls/hr 11/05/20 22:09 11/05/20 22:35 Normal Saline IV 11/05/20 23:09 999 mls/hr .BOLUS ONE Administration Ketorolac Tromethamine 15 mg 11/05/20 22:08 11/05/20 23:32 Ketorolac 30 Mg/Ml Sdv IVPUSH 11/05/20 22:09 Not Given ONETIME ONE Metoprolol Tartrate 5 mg 11/05/20 21:58 11/05/20 22:34 Metoprolol Tartrate 5 Mg/5 Ml Sdv IVPUSH 11/05/20 21:59 5 mg ONETIME ONE Administration - Re-Assessments/Exams Free Text/Narrative Re-Assessment/Exam: 11/05/20 23:51 HR dec'd to 110-115 after metoprolol 5 mg IV and NS 1 liter. Although skin turgor dec'd, u/a with SG 1.015 and no ketones. Pt currently on metoprolol 25 mg 1/2 tab bid, which pt states is the dose recommended by [facility]. Pt with SBP 115-125 here and should be able to tolerate a higher dose of metoprolol, will increase to 25 mg in AM and 12.5 mg in PM for now, pending further review by PCP Dr Johnson in 4-5 days (Tue or ). Pt reports that [facility] did say that she could see cardiology in [place] if needed, which would be up to PCP. Departure - Departure Time of Disposition: 23:47 Disposition: Home, Self-Care 01 Condition: Good Clinical Impression: Atrial fibrillation with rapid ventricular response Referrals: PCP,None [Primary Care Provider] - Additional Instructions: Increase your metoprolol to 25 mg 1 tab in morning and 1/2 tab in evening. Monitor and record your heart rate and blood pressure twice a day, take them with you to your next appointment. Increase fluids. For pain, take acetaminophen 500 mg 2 tabs every 6 hours as needed. For pain, use heating pad for 10 minutes every 2-3 hours as needed. See Dr Johnson in 4-5 days for further recommendations. Sepsis Event Note (ED) - Focused Exam Vital Signs: Vital Signs Temp Pulse Pulse Resp BP BP Pulse Ox 11/05/20 23:34 111 H 16 122/82 98 11/05/20 23:21 37.2 C 131 H 18 179/100 H 98 11/05/20 22:34 129 H 160/106 H - My Orders Last 24 Hours: My Active Orders 11/05/20 21:58 EKG 12 Lead [EK] Routine - Assessment/Plan Last 24 Hours: My Active Orders 11/05/20 21:58 EKG 12 Lead [EK] Routine
[2020-11-05] MEDS: Ketorolac 30 MG/ML SDV IVPUSH ONE ×2 (22:34→23:32)
[2020-11-05] MEDS ORDERED: Acetaminophen 500 MG Tab PO ONE (22:50)
[2020-11-05 23:34] VITALS: BP 122/82; PULSE 111
== END 2020-11-06 00:45 | disposition home or self-care (01) ==
LOC: FB.ED 21:49
DX: I48.91 Unspecified atrial fibrillation (principal); I11.0 Hypertensive heart disease with heart failure; I50.9 Heart failure, unspecified; I25.2 Old myocardial infarction; K21.9 Gastro-esophageal reflux disease without esophagitis; E66.9 Obesity, unspecified; Z68.27 Body mass index [BMI] 27.0-27.9, adult; Z79.899 Other long term (current) drug therapy; Z79.01 Long term (current) use of anticoagulants; Z88.0 Allergy status to penicillin; Z88.1 Allergy status to other antibiotic agents
CPT/HCPCS: 36415; 80053; 81001; 83735; 84484; 85025; 86140; 93005; 96374; 99285; A9270; J3490; J7030; J1885

== ENCOUNTER 2021-07-18 19:19 | Emergency (ER) | payer MEDICARE ==
[2021-07-18] MEDS ORDERED: traMADol 50 MG Tab PO ONE (19:20)
[2021-07-18 19:22] VITALS: BP 168/79; PULSE 58
== END 2021-07-18 20:03 | disposition home or self-care (01) ==
LOC: FB.ED 19:19
DX: S93.601A Unspecified sprain of right foot, initial encounter (principal)
CPT/HCPCS: 99281; 99283; A9270-GY

== ENCOUNTER 2021-08-27 22:06 | Emergency (ER) | payer MEDICARE ==
[2021-08-27] MEDS ORDERED: Acetaminophen 500 MG Tab PO STA (22:24)
[2021-08-27] MEDS ORDERED: traMADol 50 MG Tab PO STA (22:24)
[2021-08-28 00:20] VITALS: BP 121/68; PULSE 124
== END 2021-08-28 | disposition home or self-care (01) ==
LOC: FB.ED 22:06
DX: S39.012A Strain of muscle, fascia and tendon of lower back, initial encounter (principal); S30.0XXA Contusion of lower back and pelvis, initial encounter; I11.0 Hypertensive heart disease with heart failure; I50.9 Heart failure, unspecified; I25.2 Old myocardial infarction; K21.9 Gastro-esophageal reflux disease without esophagitis; E66.9 Obesity, unspecified; Z68.30 Body mass index [BMI] 30.0-30.9, adult; Z90.49 Acquired absence of other specified parts of digestive tract; Z90.710 Acquired absence of both cervix and uterus; Z79.899 Other long term (current) drug therapy; Z79.01 Long term (current) use of anticoagulants; Z88.1 Allergy status to other antibiotic agents; Z88.7 Allergy status to serum and vaccine; Z88.0 Allergy status to penicillin; Z88.2 Allergy status to sulfonamides; Z88.6 Allergy status to analgesic agent; W01.0XXA Fall on same level from slipping, tripping and stumbling without subsequent striking against object, initial encounter
CPT/HCPCS: 72100; 73502-LT; 99283; 99284-25; A9270-GY

== ENCOUNTER 2021-09-20 16:07 | Emergency (ER) | payer MEDICARE ==
[2021-09-20] MEDS: Sodium Chloride 0.9% 10 ML Syringe FLUSH PRN (16:30)
[2021-09-20] MEDS: Ondansetron 4 MG/2 ML SDV ONE (16:30)
[2021-09-20] MEDS: Ondansetron 4 MG/2 ML SDV IVPUSH STA (16:30)
[2021-09-20] MEDS: Diltiazem 25 MG/5 ML SDV IVPUSH STA (16:30)
[2021-09-20] MEDS: Diltiazem 25 MG/5 ML SDV ONE (16:30)
[2021-09-20 16:32] LABS: ESTIMATED GFR 47 mL/min (>60)
[2021-09-20 16:33] VITALS: BP 133/45; PULSE 151
[2021-09-20] MEDS: traMADol 50 MG Tab PO STA (16:53)
== END 2021-09-20 17:26 | disposition home or self-care (01) ==
LOC: FB.ED 16:07
DX: I48.20 Chronic atrial fibrillation, unspecified (principal); R10.9 Unspecified abdominal pain; G89.29 Other chronic pain; I10 Essential (primary) hypertension; I50.9 Heart failure, unspecified; F41.9 Anxiety disorder, unspecified; F32.A Depression, unspecified; I25.2 Old myocardial infarction; K21.9 Gastro-esophageal reflux disease without esophagitis; E66.9 Obesity, unspecified; Z68.27 Body mass index [BMI] 27.0-27.9, adult; Z79.899 Other long term (current) drug therapy; Z88.1 Allergy status to other antibiotic agents; Z88.8 Allergy status to other drugs, medicaments and biological substances; Z88.0 Allergy status to penicillin; Z88.7 Allergy status to serum and vaccine
CPT/HCPCS: 36415; 71045; 80053; 83880; 84484; 85025; 93005; 96374; 96375; 99282; 99285; A9270; J2405; J3490

== ENCOUNTER 2021-09-25 03:39 | Emergency (ER) | payer MEDICARE ==
[2021-09-25 04:23] LABS: ESTIMATED GFR 67 mL/min (>60)
[2021-09-25] MEDS ORDERED: hydrOXYzine HCl 50 MG/ML SDV IM ONE (04:42)
[2021-09-25] MEDS ORDERED: HYDROmorphone 2 MG/ML SDV IM ONE (04:42)
[2021-09-25 05:28] VITALS: BP 128/95; PULSE 100
== END 2021-09-25 05:30 | disposition home or self-care (01) ==
LOC: FB.ED 03:39
DX: G89.29 Other chronic pain (principal); M54.50 Low back pain, unspecified; Z88.1 Allergy status to other antibiotic agents; Z88.7 Allergy status to serum and vaccine; Z88.2 Allergy status to sulfonamides; Z88.8 Allergy status to other drugs, medicaments and biological substances
CPT/HCPCS: 36415; 72131; 80048; 83880; 84484; 85025; 93005; 96372; 99284; J1170; J3410

== ENCOUNTER 2021-11-02 20:12 | Emergency (ER) | payer MEDICARE ==
[2021-11-02] MEDS ORDERED: traMADol 50 MG Tab PO ONE ×2 (21:02)
[2021-11-03 18:21] VITALS: BP 141/111; PULSE 154
== END 2021-11-02 21:20 | disposition home or self-care (01) ==
LOC: FB.ED 20:12
DX: M76.61 Achilles tendinitis, right leg (principal); M72.2 Plantar fascial fibromatosis; I48.91 Unspecified atrial fibrillation; I11.0 Hypertensive heart disease with heart failure; I50.9 Heart failure, unspecified; I25.2 Old myocardial infarction; K21.9 Gastro-esophageal reflux disease without esophagitis; Z79.01 Long term (current) use of anticoagulants; Z88.1 Allergy status to other antibiotic agents; Z88.7 Allergy status to serum and vaccine; Z88.8 Allergy status to other drugs, medicaments and biological substances; Z88.0 Allergy status to penicillin; Z88.2 Allergy status to sulfonamides; Z88.6 Allergy status to analgesic agent; Z79.899 Other long term (current) drug therapy
CPT/HCPCS: 99282; 99283; A9270-GY

== ENCOUNTER 2021-11-24 11:51 | Emergency (ER) | payer MEDICARE ==
[2021-11-24 12:43] LABS: ESTIMATED GFR 67 mL/min (>60)
[2021-11-24] MEDS: traMADol 50 MG Tab PO ONE (13:50)
[2021-11-24] MEDS: Alum Hydroxide/Mag Hydroxide 30 ML, Lidocaine 2% 15 ML PO ONE ×2 (13:50)
[2021-11-24] MEDS: Aluminum Hydroxide/Magnesium Hydroxide Susp 30 ML Cup PO ONE (15:53)
[2021-11-24 19:58] VITALS: BP 129/89; PULSE 96
== END 2021-11-24 16:14 | disposition home or self-care (01) ==
LOC: FB.ED 11:51
DX: K21.00 Gastro-esophageal reflux disease with esophagitis, without bleeding (principal); I48.91 Unspecified atrial fibrillation; I11.0 Hypertensive heart disease with heart failure; I50.9 Heart failure, unspecified; I25.2 Old myocardial infarction; E66.9 Obesity, unspecified; Z68.30 Body mass index [BMI] 30.0-30.9, adult; Z88.1 Allergy status to other antibiotic agents; Z88.0 Allergy status to penicillin; Z88.6 Allergy status to analgesic agent; Z88.7 Allergy status to serum and vaccine; Z88.2 Allergy status to sulfonamides; Z79.01 Long term (current) use of anticoagulants; Z79.899 Other long term (current) drug therapy; Z87.891 Personal history of nicotine dependence
CPT/HCPCS: 36415; 71045; 80053; 81001; 83880; 84484; 85025; 86140; 93005; 99285; A9270

== ENCOUNTER 2021-11-28 18:51 | Emergency (ER) | payer MEDICARE, MEDICAID ==
[2021-11-28] MEDS ORDERED: traMADol 50 MG Tab PO ONE ×2 (18:52→19:44)
[2021-11-28] MEDS ORDERED: Alum Hydroxide/Mag Hydroxide 15 ML, Lidocaine 2% 15 ML PO ONE ×2 (19:18)
[2021-11-28] MEDS ORDERED: Labetalol 20 MG/4 ML Syringe IVPUSH ONE (19:49)
[2021-11-28 19:50] LABS: ESTIMATED GFR 67 mL/min (>60)
[2021-11-28 19:53] VITALS: BP 159/105; PULSE 112
[2021-11-28] MEDS: Sodium Chloride 0.9% 10 ML Syringe FLUSH PRN ×2 (20:10→21:52)
[2021-11-28] MEDS ORDERED: Pantoprazole 40 MG Vial IVPUSH ONE (21:44)
== END 2021-11-28 22:25 | disposition home or self-care (01) ==
LOC: FB.ED 18:51
DX: I48.20 Chronic atrial fibrillation, unspecified (principal); K21.00 Gastro-esophageal reflux disease with esophagitis, without bleeding; I11.0 Hypertensive heart disease with heart failure; I50.9 Heart failure, unspecified; I25.2 Old myocardial infarction; E66.9 Obesity, unspecified; Z68.31 Body mass index [BMI] 31.0-31.9, adult; Z88.1 Allergy status to other antibiotic agents; Z88.6 Allergy status to analgesic agent; Z88.7 Allergy status to serum and vaccine; Z88.0 Allergy status to penicillin; Z88.2 Allergy status to sulfonamides; Z79.01 Long term (current) use of anticoagulants; Z86.16 Personal history of COVID-19; Z90.49 Acquired absence of other specified parts of digestive tract; Z90.710 Acquired absence of both cervix and uterus
CPT/HCPCS: 36415; 80053; 83880; 84484; 85025; 93005; 96374; 96375; 99285; A9270; C9113; J3490

== ENCOUNTER 2021-12-15 23:40 | Emergency (ER) | payer MEDICARE, MEDICAID ==
[2021-12-16] MEDS ORDERED: Ketorolac 30 MG/ML SDV IM ONE (00:29)
[2021-12-16] MEDS ORDERED: Metoclopramide 10 MG/2 ML SDV IM ONE (01:04)
[2021-12-16 01:17] VITALS: BP 133/83; PULSE 79
== END 2021-12-16 01:25 | disposition home or self-care (01) ==
LOC: FB.ED 23:40
DX: S70.02XA Contusion of left hip, initial encounter (principal); I48.91 Unspecified atrial fibrillation; I11.0 Hypertensive heart disease with heart failure; I50.9 Heart failure, unspecified; I25.2 Old myocardial infarction; K21.9 Gastro-esophageal reflux disease without esophagitis; E66.9 Obesity, unspecified; Z68.29 Body mass index [BMI] 29.0-29.9, adult; Z88.1 Allergy status to other antibiotic agents; Z88.7 Allergy status to serum and vaccine; Z88.8 Allergy status to other drugs, medicaments and biological substances; Z88.0 Allergy status to penicillin; Z88.2 Allergy status to sulfonamides; Z79.01 Long term (current) use of anticoagulants; Z79.899 Other long term (current) drug therapy; W01.0XXA Fall on same level from slipping, tripping and stumbling without subsequent striking against object, initial encounter
CPT/HCPCS: 73502; 96372; 99284; J2765

== ENCOUNTER 2021-12-24 10:34 | Emergency (ER) | payer MEDICARE, MEDICAID ==
[2021-12-24] MEDS ORDERED: Sodium Chloride 0.9% 1,000 ML IV ONE (10:54)
[2021-12-24] MEDS ORDERED: Ondansetron 4 MG/2 ML SDV IVPUSH ONE (10:54)
[2021-12-24] MEDS ORDERED: Alum Hydroxide/Mag Hydroxide 30 ML, Lidocaine 2% 15 ML PO ONE ×4 (10:54→12:37)
[2021-12-24 11:16] LABS: ESTIMATED GFR 76 mL/min (>60)
[2021-12-24] MEDS ORDERED: Metoprolol Tartrate 5 MG/5 ML SDV IVPUSH ONE (12:37)
[2021-12-24 15:18] VITALS: PULSE 99
[2021-12-24 16:33] VITALS: BP 149/61
== END 2021-12-24 14:30 | disposition home or self-care (01) ==
LOC: FB.ED 10:34
DX: I48.91 Unspecified atrial fibrillation (principal); E86.0 Dehydration; I11.0 Hypertensive heart disease with heart failure; I50.9 Heart failure, unspecified; I25.2 Old myocardial infarction; E66.9 Obesity, unspecified; Z68.29 Body mass index [BMI] 29.0-29.9, adult; Z88.1 Allergy status to other antibiotic agents; Z88.6 Allergy status to analgesic agent; Z88.7 Allergy status to serum and vaccine; Z88.0 Allergy status to penicillin; Z88.2 Allergy status to sulfonamides; Z79.01 Long term (current) use of anticoagulants; Z79.899 Other long term (current) drug therapy; Z90.49 Acquired absence of other specified parts of digestive tract; Z90.710 Acquired absence of both cervix and uterus
CPT/HCPCS: 36415; 80053; 84484; 85025; 86140; 93005; 96361; 96374; 96375; 99284; A9270; J2405; J3490; J7030

== ENCOUNTER 2021-12-25 15:17 | Emergency (ER) | payer MEDICARE, MEDICAID ==
[2021-12-25] MEDS ORDERED: Metoprolol Tartrate 50 MG Tab PO ONE (16:41)
[2021-12-25 17:42] VITALS: BP 110/89; PULSE 106
== END 2021-12-25 17:43 | disposition home or self-care (01) ==
LOC: FB.ED 15:17
DX: I48.20 Chronic atrial fibrillation, unspecified (principal); I11.0 Hypertensive heart disease with heart failure; I50.9 Heart failure, unspecified; I25.2 Old myocardial infarction; K21.9 Gastro-esophageal reflux disease without esophagitis; E66.9 Obesity, unspecified; Z88.1 Allergy status to other antibiotic agents; Z88.7 Allergy status to serum and vaccine; Z88.2 Allergy status to sulfonamides; Z88.0 Allergy status to penicillin; Z88.8 Allergy status to other drugs, medicaments and biological substances; Z79.01 Long term (current) use of anticoagulants; Z79.899 Other long term (current) drug therapy; Z68.31 Body mass index [BMI] 31.0-31.9, adult
CPT/HCPCS: 99284; A9270

== ENCOUNTER 2021-12-30 16:56 | Emergency (ER) | payer MEDICARE, MEDICAID ==
[2021-12-30] MEDS ORDERED: traMADol 50 MG Tab PO STA (17:25)
[2021-12-30] MEDS ORDERED: Metoprolol Tartrate 50 MG Tab PO ONE ×2 (17:28→18:33)
[2021-12-30 17:48] LABS: ESTIMATED GFR 66 mL/min (>60)
[2021-12-30 19:26] VITALS: BP 127/86; PULSE 96
== END 2021-12-30 19:19 | disposition home or self-care (01) ==
LOC: FB.ED 16:56
DX: I48.0 Paroxysmal atrial fibrillation (principal); I11.0 Hypertensive heart disease with heart failure; I50.9 Heart failure, unspecified; I25.2 Old myocardial infarction; E66.9 Obesity, unspecified; Z68.26 Body mass index [BMI] 26.0-26.9, adult; Z88.1 Allergy status to other antibiotic agents; Z88.0 Allergy status to penicillin; Z88.2 Allergy status to sulfonamides; Z88.7 Allergy status to serum and vaccine; Z88.8 Allergy status to other drugs, medicaments and biological substances; Z79.01 Long term (current) use of anticoagulants; Z79.899 Other long term (current) drug therapy
CPT/HCPCS: 36415; 80053; 84484; 85025; 93005; 99285; A9270

== ENCOUNTER 2022-01-13 13:45 | Emergency (ER) | payer MEDICARE, MEDICAID ==
[2022-01-13 14:27] VITALS: BP 130/102; PULSE 116
[2022-01-13 14:27] LABS: ESTIMATED GFR 66 mL/min (>60)
[2022-01-13] MEDS ORDERED: Diltiazem 25 MG/5 ML SDV IVPUSH STA (14:29)
[2022-01-13] MEDS: Sodium Chloride 0.9% 10 ML Syringe FLUSH PRN ×2 (14:43→14:46)
[2022-01-13] MEDS ORDERED: traMADol 50 MG Tab PO STA (15:56)
== END 2022-01-13 16:42 | disposition home or self-care (01) ==
LOC: FB.ED 13:45
DX: I48.91 Unspecified atrial fibrillation (principal); I11.0 Hypertensive heart disease with heart failure; I50.9 Heart failure, unspecified; Z88.1 Allergy status to other antibiotic agents; Z88.6 Allergy status to analgesic agent; Z88.7 Allergy status to serum and vaccine; Z88.0 Allergy status to penicillin; Z88.2 Allergy status to sulfonamides; Z79.899 Other long term (current) drug therapy; Z79.01 Long term (current) use of anticoagulants
CPT/HCPCS: 36415; 71045; 80053; 83880; 84484; 85025; 93005; 96374; 99285-25; A9270-GY; J3490

== ENCOUNTER 2022-01-17 08:54 | Emergency (ER) | payer MEDICARE, MEDICAID ==
[2022-01-17] MEDS: Sodium Chloride 0.9% 10 ML Syringe FLUSH PRN ×3 (09:00→09:34)
[2022-01-17] MEDS ORDERED: Diltiazem 25 MG/5 ML SDV IVPUSH ONE ×2 (09:03→09:17)
[2022-01-17 09:07] VITALS: BP 136/84; PULSE 145
[2022-01-17] MEDS ORDERED: traMADol 50 MG Tab PO STA (09:21)
[2022-01-17 09:39] LABS: ESTIMATED GFR 66 mL/min (>60)
== END 2022-01-17 10:37 | disposition home or self-care (01) ==
LOC: FB.ED 08:54
DX: I48.91 Unspecified atrial fibrillation (principal); I11.0 Hypertensive heart disease with heart failure; I50.9 Heart failure, unspecified; I25.2 Old myocardial infarction; K21.9 Gastro-esophageal reflux disease without esophagitis; M19.90 Unspecified osteoarthritis, unspecified site; E66.9 Obesity, unspecified; Z88.1 Allergy status to other antibiotic agents; Z88.6 Allergy status to analgesic agent; Z88.7 Allergy status to serum and vaccine; Z88.5 Allergy status to narcotic agent; Z88.0 Allergy status to penicillin; Z88.2 Allergy status to sulfonamides; Z79.01 Long term (current) use of anticoagulants; Z79.899 Other long term (current) drug therapy
CPT/HCPCS: 36415; 71045; 80053; 83880; 84484; 85025; 93005; 96374; 99285; A9270; J3490

== ENCOUNTER 2022-01-19 13:23 | Emergency (ER) | payer MEDICARE, MEDICAID ==
[2022-01-19] MEDS ORDERED: Diltiazem 25 MG/5 ML SDV IVPUSH ONE ×2 (13:47→15:12)
[2022-01-19] MEDS ORDERED: Sodium Chloride 0.9% 500 ML IV ONE (13:48)
[2022-01-19 14:12] LABS: ESTIMATED GFR 76 mL/min (>60)
[2022-01-19] MEDS ORDERED: traMADol 50 MG Tab PO ONE (14:39)
[2022-01-19] MEDS ORDERED: Metoprolol Tartrate 50 MG Tab PO ONE (15:14)
[2022-01-19 15:23] VITALS: BP 125/87; PULSE 125
[2022-01-19 15:47] LABS: CORONAVIRUS COVID-19 NAA POSITIVE (NEGATIVE)
== END 2022-01-19 17:00 | disposition home or self-care (01) ==
LOC: FB.ED 13:23
DX: U07.1 COVID-19 (principal); I48.91 Unspecified atrial fibrillation; R79.82 Elevated C-reactive protein (CRP); I11.0 Hypertensive heart disease with heart failure; I50.9 Heart failure, unspecified; R50.9 Fever, unspecified; E66.9 Obesity, unspecified; Z68.31 Body mass index [BMI] 31.0-31.9, adult; Z90.49 Acquired absence of other specified parts of digestive tract; Z90.710 Acquired absence of both cervix and uterus; Z88.1 Allergy status to other antibiotic agents; Z88.6 Allergy status to analgesic agent; Z88.7 Allergy status to serum and vaccine; Z88.0 Allergy status to penicillin; Z88.2 Allergy status to sulfonamides; Z79.899 Other long term (current) drug therapy; Z79.01 Long term (current) use of anticoagulants; Z20.822 Contact with and (suspected) exposure to COVID-19
CPT/HCPCS: 0240U; 36415; 80048; 81001; 84484; 85025; 86140; 96361; 96374; 96376; 99284-25; A9270-GY; J3490; J7040

== ENCOUNTER 2022-02-03 20:05 | Emergency (ER) | payer MEDICAID, MEDICARE, OTHER ==
[2022-02-03] MEDS ORDERED: traMADol 50 MG Tab PO ONE (20:15)
[2022-02-03 23:06] VITALS: BP 173/93; PULSE 90
== END 2022-02-03 20:45 | disposition home or self-care (01) ==
LOC: FB.ED 20:14
DX: R07.89 Other chest pain (principal); I48.91 Unspecified atrial fibrillation; I11.0 Hypertensive heart disease with heart failure; I50.9 Heart failure, unspecified; I25.2 Old myocardial infarction; K21.9 Gastro-esophageal reflux disease without esophagitis; E66.9 Obesity, unspecified; Z88.1 Allergy status to other antibiotic agents; Z88.7 Allergy status to serum and vaccine; Z88.0 Allergy status to penicillin; Z88.2 Allergy status to sulfonamides; Z88.8 Allergy status to other drugs, medicaments and biological substances; Z79.01 Long term (current) use of anticoagulants; Z79.899 Other long term (current) drug therapy; Z68.25 Body mass index [BMI] 25.0-25.9, adult
CPT/HCPCS: 93005; 99284; A9270

== ENCOUNTER 2022-02-17 20:37 | Emergency (ER) | payer OTHER ==
[2022-02-17] MEDS ORDERED: Acetaminophen 500 MG Tab PO ONE (21:45)
[2022-02-17] MEDS ORDERED: Gabapentin 600 MG Tab PO STA (21:45)
[2022-02-17 22:09] VITALS: BP 128/62; PULSE 64
== END 2022-02-17 22:14 | disposition home or self-care (01) ==
LOC: FB.ED 20:37
DX: S39.012A Strain of muscle, fascia and tendon of lower back, initial encounter (principal); S76.011A Strain of muscle, fascia and tendon of right hip, initial encounter; I11.0 Hypertensive heart disease with heart failure; I50.9 Heart failure, unspecified; Z88.1 Allergy status to other antibiotic agents; Z88.6 Allergy status to analgesic agent; Z88.7 Allergy status to serum and vaccine; Z88.0 Allergy status to penicillin; Z88.2 Allergy status to sulfonamides; Z79.899 Other long term (current) drug therapy; Z79.01 Long term (current) use of anticoagulants; Z90.49 Acquired absence of other specified parts of digestive tract; W01.0XXA Fall on same level from slipping, tripping and stumbling without subsequent striking against object, initial encounter
CPT/HCPCS: 72100; 73502; 99284; A9270

== ENCOUNTER 2022-03-15 14:48 | Emergency (ER) | payer OTHER ==
[2022-03-15 15:28] LABS: ESTIMATED GFR 66 mL/min (>60)
[2022-03-15 23:21] VITALS: BP 155/82; PULSE 76
== END 2022-03-15 18:52 | disposition home or self-care (01) ==
LOC: FB.ED 14:48
DX: R07.89 Other chest pain (principal); I11.0 Hypertensive heart disease with heart failure; I50.9 Heart failure, unspecified; I25.2 Old myocardial infarction; I48.91 Unspecified atrial fibrillation; E66.9 Obesity, unspecified; Z68.30 Body mass index [BMI] 30.0-30.9, adult; Z88.1 Allergy status to other antibiotic agents; Z88.7 Allergy status to serum and vaccine; Z88.8 Allergy status to other drugs, medicaments and biological substances; Z88.2 Allergy status to sulfonamides; Z88.0 Allergy status to penicillin; Z79.01 Long term (current) use of anticoagulants; Z79.899 Other long term (current) drug therapy
CPT/HCPCS: 36415; 71045; 80053; 84484; 85025; 99285

== ENCOUNTER 2022-11-20 09:14 | Emergency (ER) | payer MEDICARE ==
[2022-11-20] MEDS ORDERED: Acetaminophen/HYDROcodone 325-5 MG Tab PO ONE (09:15)
[2022-11-20 10:47] VITALS: BP 149/77; PULSE 74
== END 2022-11-20 10:20 | disposition home or self-care (01) ==
LOC: FB.ED 09:14
DX: H66.91 Otitis media, unspecified, right ear (principal); H72.91 Unspecified perforation of tympanic membrane, right ear; I11.0 Hypertensive heart disease with heart failure; I50.9 Heart failure, unspecified; I25.2 Old myocardial infarction; I48.91 Unspecified atrial fibrillation; K21.9 Gastro-esophageal reflux disease without esophagitis; E66.9 Obesity, unspecified; Z68.30 Body mass index [BMI] 30.0-30.9, adult; Z88.1 Allergy status to other antibiotic agents; Z88.7 Allergy status to serum and vaccine; Z88.0 Allergy status to penicillin; Z88.2 Allergy status to sulfonamides; Z88.8 Allergy status to other drugs, medicaments and biological substances; Z79.899 Other long term (current) drug therapy
CPT/HCPCS: 99282; A9270

== ENCOUNTER 2022-11-22 23:28 | Emergency (ER) | payer MEDICARE ==
[2022-11-23 00:12] VITALS: BP 147/57; PULSE 67
[2022-11-23] MEDS ORDERED: Ketorolac 30 MG/ML SDV IM ONE (00:30)
== END 2022-11-23 01:01 | disposition home or self-care (01) ==
LOC: FB.ED 23:28
DX: S43.491A Other sprain of right shoulder joint, initial encounter (principal); I48.91 Unspecified atrial fibrillation; I11.0 Hypertensive heart disease with heart failure; I50.9 Heart failure, unspecified; I25.2 Old myocardial infarction; E66.9 Obesity, unspecified; Z68.30 Body mass index [BMI] 30.0-30.9, adult; Z88.1 Allergy status to other antibiotic agents; Z88.7 Allergy status to serum and vaccine; Z88.0 Allergy status to penicillin; Z88.2 Allergy status to sulfonamides; Z79.01 Long term (current) use of anticoagulants; Z98.84 Bariatric surgery status; Z79.899 Other long term (current) drug therapy; W01.198A Fall on same level from slipping, tripping and stumbling with subsequent striking against other object, initial encounter; Y92.002 Bathroom of unspecified non-institutional (private) residence as the place of occurrence of the external cause
CPT/HCPCS: 73030; 96372; 99283; J1885

== ENCOUNTER 2022-12-04 12:50 | Emergency (ER) | payer MEDICARE ==
[2022-12-04] MEDS ORDERED: Acetaminophen/HYDROcodone 325-5 MG Tab PO ONE (12:51)
[2022-12-04 13:43] VITALS: PULSE 73
[2022-12-04 14:12] VITALS: BP 164/83
== END 2022-12-04 13:50 | disposition home or self-care (01) ==
LOC: FB.ED 12:50
DX: H66.91 Otitis media, unspecified, right ear (principal); H72.91 Unspecified perforation of tympanic membrane, right ear; K21.9 Gastro-esophageal reflux disease without esophagitis; E66.9 Obesity, unspecified; I48.91 Unspecified atrial fibrillation; I10 Essential (primary) hypertension; I25.2 Old myocardial infarction; Z88.0 Allergy status to penicillin; Z88.1 Allergy status to other antibiotic agents; Z88.2 Allergy status to sulfonamides; Z88.5 Allergy status to narcotic agent; Z88.6 Allergy status to analgesic agent; Z88.8 Allergy status to other drugs, medicaments and biological substances; Z79.899 Other long term (current) drug therapy; Z68.22 Body mass index [BMI] 22.0-22.9, adult; Z79.01 Long term (current) use of anticoagulants
CPT/HCPCS: 99282; A9270

== ENCOUNTER 2022-12-05 19:25 | Emergency (ER) | payer MEDICARE ==
[2022-12-05 19:51] VITALS: BP 162/78; PULSE 72
== END 2022-12-05 20:05 | disposition home or self-care (01) ==
LOC: FB.ED 19:25
DX: H66.91 Otitis media, unspecified, right ear (principal); H72.91 Unspecified perforation of tympanic membrane, right ear; I11.0 Hypertensive heart disease with heart failure; I50.9 Heart failure, unspecified; I48.91 Unspecified atrial fibrillation; I25.2 Old myocardial infarction; E66.9 Obesity, unspecified; Z68.30 Body mass index [BMI] 30.0-30.9, adult; Z88.0 Allergy status to penicillin; Z88.7 Allergy status to serum and vaccine; Z88.2 Allergy status to sulfonamides; Z88.6 Allergy status to analgesic agent; Z88.1 Allergy status to other antibiotic agents; Z79.01 Long term (current) use of anticoagulants
CPT/HCPCS: 99282

== ENCOUNTER 2022-12-14 21:47 | Emergency (ER) | payer MEDICARE ==
[2022-12-14 22:12] LABS: BASOPHILS ABSOLUTE AUTO 0.1 x10-3/uL (0.0-0.1); BASOPHILS PERCENT AUTO 0.9 % (0.2-1.5); EOSINOPHILS PERCENT AUTO 0.4 % (0.6-8.1); HEMATOCRIT 33.8 % (34.2-48.2); HEMOGLOBIN 10.7 g/dL (11.4-15.5); LYMPHOCYTES ABSOLUTE AUTO 2.9 x10-3/uL (1.0-4.4); LYMPHOCYTES PERCENT AUTO 40.4 % (18.4-52.1); MEAN CORPUSCULAR HEMOGLOBIN 25.5 pg (23.9-33.9); MEAN CORPUSCULAR HGB CONC 31.7 g/dL (31.9-34.8); MEAN CORPUSCULAR VOLUME 80.3 fL (76.7-100.5); MEAN PLATELET VOLUME 7.7 fL (7.1-12.4); MONOCYTES PERCENT AUTO 13.2 % (4.4-15.7); NEUTROPHILS ABSOLUTE AUTO 3.3 x10-3/uL (1.5-6.3); NEUTROPHILS PERCENT AUTO 45.1 % (30.8-76.2); PLATELET COUNT,PLT 397 x10(3)uL (151-488); RED BLOOD CELL COUNT 4.21 x10(6)uL (3.60-5.20); RED CELL DISTRIBUTION WIDTH 18.1 % (12.3-16.5); WHITE BLOOD CELL COUNT,WBC 7.2 x10-3/uL (3.0-10.3)
[2022-12-14 22:19] LABS: LIPASE < 6 U/L (16-77)
[2022-12-14 22:22] LABS: A/G RATIO 0.8; ALANINE AMINOTRANSFERASE,ALT 19 U/L (12-36); ALBUMIN 3.2 g/dL (3.2-4.6); ALKALINE PHOSPHATASE 131 IU/L (56-112); ASPARTATE AMNIOTRANSFERASE,AST 19 IU/L (5-25); BILIRUBIN TOTAL 0.4 mg/dL (0.1-1.3); BLOOD UREA NITROGEN,BUN 16 mg/dL (7-18); CARBON DIOXIDE,CO2 27 mmol/L (21-32); CHLORIDE,CL 103 mmol/L (100-110); EST CRCL DRUG DOSING (CG) 33.84 mL/min; ESTIMATED GFR 58 mL/min (>60); GLUCOSE RANDOM 91 mg/dL (80-116); POTASSIUM,K 4.2 mmol/L (3.5-5.3); PROTEIN TOTAL,TP 7.1 g/dL (6.0-8.0); SODIUM,NA 137 mmol/L (135-145)
[2022-12-14] MEDS ORDERED: Morphine 4 MG/ML VIAL IM ONE (23:30)
[2022-12-14] MEDS ORDERED: hydrOXYzine HCl 50 MG/ML SDV IM ONE (23:30)
[2022-12-14 23:39] VITALS: BP 126/79; PULSE 102
== END 2022-12-14 23:48 | disposition home or self-care (01) ==
LOC: FB.ED 21:47
DX: R10.9 Unspecified abdominal pain (principal); I48.91 Unspecified atrial fibrillation; I11.0 Hypertensive heart disease with heart failure; I50.9 Heart failure, unspecified; I25.2 Old myocardial infarction; E66.9 Obesity, unspecified; Z68.30 Body mass index [BMI] 30.0-30.9, adult; Z79.01 Long term (current) use of anticoagulants; Z88.1 Allergy status to other antibiotic agents; Z88.6 Allergy status to analgesic agent; Z88.7 Allergy status to serum and vaccine; Z88.5 Allergy status to narcotic agent; Z88.8 Allergy status to other drugs, medicaments and biological substances; Z88.2 Allergy status to sulfonamides; Z90.49 Acquired absence of other specified parts of digestive tract
CPT/HCPCS: 36415; 74176; 80053; 83690; 85025; 86140; 96372; 99285; J2270; J3410

== ENCOUNTER 2022-12-27 19:30 | Emergency (ER) | payer MEDICARE ==
[2022-12-27] MEDS ORDERED: traMADol 50 MG Tab PO ONE (20:17)
[2022-12-27 20:38] VITALS: BP 146/89; PULSE 80
== END 2022-12-27 20:38 | disposition home or self-care (01) ==
LOC: FB.ED 19:30
DX: H92.11 Otorrhea, right ear (principal); G89.29 Other chronic pain; I48.91 Unspecified atrial fibrillation; I11.0 Hypertensive heart disease with heart failure; I50.9 Heart failure, unspecified; I25.2 Old myocardial infarction; E66.9 Obesity, unspecified; Z68.29 Body mass index [BMI] 29.0-29.9, adult; Z79.01 Long term (current) use of anticoagulants; Z88.1 Allergy status to other antibiotic agents; Z88.6 Allergy status to analgesic agent; Z88.7 Allergy status to serum and vaccine; Z88.2 Allergy status to sulfonamides; Z88.0 Allergy status to penicillin
CPT/HCPCS: 99282; A9270

== ENCOUNTER 2023-02-07 10:38 | Emergency (ER) | payer MEDICARE ==
[2023-02-07] MEDS ORDERED: traMADol 50 MG Tab PO ONE (10:39)
[2023-02-07] MEDS ORDERED: Sodium Chloride 0.9% 10 ML Syringe FLUSH PRN (10:54)
[2023-02-07] MEDS ORDERED: Metoprolol Tartrate 5 MG/5 ML SDV IVPUSH ONE ×2 (10:55→12:29)
[2023-02-07] MEDS ORDERED: Naloxone 0.4 MG/ML SDV IVPUSH PRN (10:55)
[2023-02-07] MEDS ORDERED: fentaNYL 100 MCG/2 ML SDV IVPUSH ONE (10:55)
[2023-02-07] MEDS ORDERED: Sodium Chloride 0.9% 1,000 ML IV SCH (11:00)
[2023-02-07 11:21] LABS: BASOPHILS PERCENT AUTO 0.7 % (0.2-1.5); EOSINOPHILS ABSOLUTE AUTO 0.1 x10-3/uL (0.0-0.8); HEMATOCRIT 35.4 % (34.2-48.2); HEMOGLOBIN 11.1 g/dL (11.4-15.5); LYMPHOCYTES ABSOLUTE AUTO 1.7 x10-3/uL (1.0-4.4); LYMPHOCYTES PERCENT AUTO 29.7 % (18.4-52.1); MEAN CORPUSCULAR HEMOGLOBIN 25.3 pg (23.9-33.9); MEAN CORPUSCULAR HGB CONC 31.3 g/dL (31.9-34.8); MEAN CORPUSCULAR VOLUME 80.8 fL (76.7-100.5); MONOCYTES ABSOLUTE AUTO 0.5 x10-3/uL (0.3-1.0); MONOCYTES PERCENT AUTO 9.1 % (4.4-15.7); NEUTROPHILS ABSOLUTE AUTO 3.3 x10-3/uL (1.5-6.3); NEUTROPHILS PERCENT AUTO 59.5 % (30.8-76.2); PLATELET COUNT,PLT 319 x10(3)uL (151-488); RED BLOOD CELL COUNT 4.39 x10(6)uL (3.60-5.20); RED CELL DISTRIBUTION WIDTH 20.2 % (12.3-16.5); WHITE BLOOD CELL COUNT,WBC 5.6 x10-3/uL (3.0-10.3)
[2023-02-07 11:26] LABS: BLOOD UREA NITROGEN,BUN 12 mg/dL (7-18); CALCIUM 9.3 mg/dL (8.6-10.2); CARBON DIOXIDE,CO2 29 mmol/L (21-32); CHLORIDE,CL 104 mmol/L (100-110); CREATININE 0.8 mg/dL (0.55-1.02); ESTIMATED GFR 76 mL/min (>60); GLUCOSE RANDOM 105 mg/dL (80-116); INR 1.07 (1.00-1.24); POTASSIUM,K 4.4 mmol/L (3.5-5.3); SODIUM,NA 139 mmol/L (135-145)
[2023-02-07 11:33] LABS: A/G RATIO 0.8; ALANINE AMINOTRANSFERASE,ALT 25 U/L (12-36); ALBUMIN 3.2 g/dL (3.2-4.6); ALKALINE PHOSPHATASE 105 IU/L (56-112); ASPARTATE AMNIOTRANSFERASE,AST 23 IU/L (5-25); BILIRUBIN TOTAL 0.4 mg/dL (0.1-1.3); MAGNESIUM 1.7 mg/dL (1.8-2.5); PROTEIN TOTAL,TP 7.2 g/dL (6.0-8.0)
[2023-02-07] MEDS ORDERED: Metoprolol Tartrate 50 MG Tab PO ONE (15:18)
[2023-02-07] MEDS ORDERED: Magnesium Oxide 400 MG Tab PO ONE (15:32)
[2023-02-07 17:18] VITALS: BP 137/94; PULSE 115
== END 2023-02-07 16:00 | disposition home or self-care (01) ==
LOC: FB.ED 10:38
DX: S70.02XA Contusion of left hip, initial encounter (principal); E83.42 Hypomagnesemia; I48.0 Paroxysmal atrial fibrillation; I11.0 Hypertensive heart disease with heart failure; I50.9 Heart failure, unspecified; E66.9 Obesity, unspecified; Z88.8 Allergy status to other drugs, medicaments and biological substances; Z88.2 Allergy status to sulfonamides; Z88.0 Allergy status to penicillin; Z90.49 Acquired absence of other specified parts of digestive tract; Z68.31 Body mass index [BMI] 31.0-31.9, adult; Z79.899 Other long term (current) drug therapy; W19.XXXA Unspecified fall, initial encounter
CPT/HCPCS: 36415; 72192; 73502-LT; 73552-LT; 73700-LT; 80053; 83735; 85025; 85610; 93005; 93010; 96374; 96375; 96376; 99284; 99284-25; A9270-GY; J3010; J3490; J7030

== ENCOUNTER 2023-02-28 13:06 | Emergency (ER) | payer MEDICARE ==
[2023-02-28] MEDS ORDERED: traMADol 50 MG Tab PO ONE ×2 (13:07→14:20)
[2023-02-28] MEDS ORDERED: Sodium Chloride 0.9% 10 ML Syringe FLUSH PRN (13:48)
[2023-02-28 14:10] LABS: BASOPHILS ABSOLUTE AUTO 0.1 x10-3/uL (0.0-0.1); BASOPHILS PERCENT AUTO 0.6 % (0.2-1.5); EOSINOPHILS PERCENT AUTO 0.2 % (0.6-8.1); HEMATOCRIT 37.1 % (34.2-48.2); HEMOGLOBIN 11.4 g/dL (11.4-15.5); LYMPHOCYTES ABSOLUTE AUTO 2.1 x10-3/uL (1.0-4.4); LYMPHOCYTES PERCENT AUTO 17.7 % (18.4-52.1); MEAN CORPUSCULAR HEMOGLOBIN 25.2 pg (23.9-33.9); MEAN CORPUSCULAR HGB CONC 30.7 g/dL (31.9-34.8); MEAN CORPUSCULAR VOLUME 82.1 fL (76.7-100.5); MEAN PLATELET VOLUME 7.7 fL (7.1-12.4); MONOCYTES ABSOLUTE AUTO 1.5 x10-3/uL (0.3-1.0); MONOCYTES PERCENT AUTO 12.3 % (4.4-15.7); NEUTROPHILS ABSOLUTE AUTO 8.2 x10-3/uL (1.5-6.3); NEUTROPHILS PERCENT AUTO 69.2 % (30.8-76.2); PLATELET COUNT,PLT 450 x10(3)uL (151-488); RED BLOOD CELL COUNT 4.52 x10(6)uL (3.60-5.20); RED CELL DISTRIBUTION WIDTH 20.2 % (12.3-16.5); WHITE BLOOD CELL COUNT,WBC 11.8 x10-3/uL (3.0-10.3)
[2023-02-28 14:12] LABS: BILIRUBIN,URINE NEGATIVE (NEGATIVE); GLUCOSE,URINE NORMAL (NORMAL); KETONES,URINE NEGATIVE (NEGATIVE); LEUKOCYTE ESTERASE,URINE NEGATIVE (NEGATIVE); NITRITE,URINE NEGATIVE (NEGATIVE); OCCULT BLOOD,URINE NEGATIVE (NEGATIVE); PROTEIN,URINE NEGATIVE (NEGATIVE); UROBILINOGEN,URINE NORMAL (NEGATIVE)
[2023-02-28 14:14] LABS: APPEARANCE,URINE CLEAR (CLEAR); BACTERIA,URINE RARE (NS); COLOR,URINE YELLOW (YELLOW); RBC,URINE 0-5 (0-5); SQUAMOUS EPITHELIAL CELLS,UR FEW (NS,R,O); WBC,URINE 0-5 (0-5)
[2023-02-28 14:17] LABS: BLOOD UREA NITROGEN,BUN 7 mg/dL (7-18); BUN/CREATININE RATIO 7.8 (9-20); CALCIUM 9.3 mg/dL (8.6-10.2); CARBON DIOXIDE,CO2 29 mmol/L (21-32); CHLORIDE,CL 103 mmol/L (100-110); CREATININE 0.9 mg/dL (0.55-1.02); ESTIMATED GFR 66 mL/min (>60); GLUCOSE RANDOM 115 mg/dL (80-116); POTASSIUM,K 3.7 mmol/L (3.5-5.3); SODIUM,NA 140 mmol/L (135-145)
[2023-02-28] MEDS ORDERED: Metoprolol Tartrate 50 MG Tab PO ONE (14:20)
[2023-02-28 14:22] LABS: A/G RATIO 0.7; ALANINE AMINOTRANSFERASE,ALT 21 U/L (12-36); ALBUMIN 3.2 g/dL (3.2-4.6); ALKALINE PHOSPHATASE 106 IU/L (56-112); ASPARTATE AMNIOTRANSFERASE,AST 20 IU/L (5-25); BILIRUBIN TOTAL 0.4 mg/dL (0.1-1.3); MAGNESIUM 1.5 mg/dL (1.8-2.5); PROTEIN TOTAL,TP 7.6 g/dL (6.0-8.0)
[2023-02-28] MEDS ORDERED: Metoprolol Tartrate 5 MG/5 ML SDV IVPUSH ONE (15:27)
[2023-02-28] MEDS ORDERED: Magnesium Sulfate/Water 2 GM in Premix Bag 1 BAG IV ONE (15:27)
[2023-02-28] MEDS: Metoprolol Tartrate 5 MG/5 ML SDV IVPUSH SCH ×2 (16:32→16:46)
[2023-02-28 19:57] VITALS: BP 139/91; PULSE 110
== END 2023-02-28 18:53 | disposition home or self-care (01) ==
LOC: FB.ED 13:06
DX: M84.48XA Pathological fracture, other site, initial encounter for fracture (principal); E83.42 Hypomagnesemia; I11.0 Hypertensive heart disease with heart failure; I50.9 Heart failure, unspecified; E66.9 Obesity, unspecified; Z90.49 Acquired absence of other specified parts of digestive tract; Z88.0 Allergy status to penicillin; Z88.2 Allergy status to sulfonamides; Z88.8 Allergy status to other drugs, medicaments and biological substances; Z79.899 Other long term (current) drug therapy; Z68.29 Body mass index [BMI] 29.0-29.9, adult; W19.XXXA Unspecified fall, initial encounter; Y92.009 Unspecified place in unspecified non-institutional (private) residence as the place of occurrence of the external cause
CPT/HCPCS: 36415; 72131; 72192; 80053; 81001; 82550; 83735; 84484; 85025; 93005; 96365; 96375; 96376; 99284; A9270; J3475; J3490

== ENCOUNTER 2023-03-02 13:21 | Inpatient (IN) | payer MEDICARE ==
[2023-03-02] MEDS ORDERED: Sodium Chloride 0.9% 10 ML Syringe FLUSH PRN (13:44)
[2023-03-02] MEDS ORDERED: Sodium Chloride 0.9% 1,000 ML IV SCH ×2 (14:00→17:45)
[2023-03-02 14:09] LABS: BASOPHILS ABSOLUTE AUTO 0.1 x10-3/uL (0.0-0.1); BASOPHILS PERCENT AUTO 0.8 % (0.2-1.5); EOSINOPHILS ABSOLUTE AUTO 0.3 x10-3/uL (0.0-0.8); EOSINOPHILS PERCENT AUTO 2.9 % (0.6-8.1); HEMATOCRIT 34.3 % (34.2-48.2); HEMOGLOBIN 11.1 g/dL (11.4-15.5); LYMPHOCYTES ABSOLUTE AUTO 1.7 x10-3/uL (1.0-4.4); LYMPHOCYTES PERCENT AUTO 18.7 % (18.4-52.1); MEAN CORPUSCULAR HEMOGLOBIN 26.1 pg (23.9-33.9); MEAN CORPUSCULAR HGB CONC 32.4 g/dL (31.9-34.8); MEAN CORPUSCULAR VOLUME 80.4 fL (76.7-100.5); MEAN PLATELET VOLUME 7.8 fL (7.1-12.4); MONOCYTES ABSOLUTE AUTO 1.1 x10-3/uL (0.3-1.0); MONOCYTES PERCENT AUTO 12.2 % (4.4-15.7); NEUTROPHILS ABSOLUTE AUTO 6.1 x10-3/uL (1.5-6.3); NEUTROPHILS PERCENT AUTO 65.4 % (30.8-76.2); RED BLOOD CELL COUNT 4.27 x10(6)uL (3.60-5.20); RED CELL DISTRIBUTION WIDTH 20.3 % (12.3-16.5); WHITE BLOOD CELL COUNT,WBC 9.3 x10-3/uL (3.0-10.3)
[2023-03-02 14:11] LABS: BLOOD UREA NITROGEN,BUN 7 mg/dL (7-18); BUN/CREATININE RATIO 8.8 (9-20); CARBON DIOXIDE,CO2 24 mmol/L (21-32); CHLORIDE,CL 107 mmol/L (100-110); CREATININE 0.8 mg/dL (0.55-1.02); ESTIMATED GFR 76 mL/min (>60); GLUCOSE RANDOM 98 mg/dL (80-116); POTASSIUM,K 3.8 mmol/L (3.5-5.3); SODIUM,NA 140 mmol/L (135-145)
[2023-03-02 14:17] LABS: A/G RATIO 0.8; ALANINE AMINOTRANSFERASE,ALT 19 U/L (12-36); ALKALINE PHOSPHATASE 91 IU/L (56-112); ASPARTATE AMNIOTRANSFERASE,AST 15 IU/L (5-25); BILIRUBIN TOTAL 0.7 mg/dL (0.1-1.3); MAGNESIUM 1.6 mg/dL (1.8-2.5); PROTEIN TOTAL,TP 6.7 g/dL (6.0-8.0)
[2023-03-02 14:21] LABS: PLATELET COUNT,PLT 416 x10(3)uL (151-488)
[2023-03-02 14:26] LABS: TROPONIN I 13.5 pg/mL (4.0-60.3)
[2023-03-02] MEDS ORDERED: traMADol 50 MG Tab PO ONE (14:47)
[2023-03-02] MEDS ORDERED: Diltiazem 25 MG/5 ML SDV IVPUSH ONE ×2 (15:23→17:01)
[2023-03-02] MEDS ORDERED: Diltiazem 125 MG in Sodium Chloride 0.9% 100 ML IV SCH (15:30)
[2023-03-02] MEDS ORDERED: Acetaminophen 325 MG Tab PO PRN (17:32)
[2023-03-02] MEDS ORDERED: Ondansetron 4 MG/2 ML SDV IV PRN (17:32)
[2023-03-02] MEDS ORDERED: Naloxone 0.4 MG/ML SDV IVPUSH PRN (17:32)
[2023-03-02] MEDS ORDERED: Morphine 2 MG/ML SYRINGE IVPUSH PRN (17:32)
[2023-03-02] MEDS: traMADol 50 MG Tab PO PRN (20:10)
[2023-03-02] MEDS ORDERED: hydrOXYzine HCl 25 MG Tab PO PRN (20:17)
[2023-03-02] MEDS ORDERED: Magnesium Oxide 400 MG Tab PO ONE (20:27)
[2023-03-02] MEDS ORDERED: Lidocaine 4% 1 each Patch TOP SCH (21:00)
[2023-03-02] MEDS: Metoprolol Tartrate 50 MG Tab PO SCH (21:16)
[2023-03-02] MEDS: Apixaban 5 MG Tab PO SCH (21:16)
[2023-03-02] MEDS: traZODone 100 MG Tab PO SCH (21:54)
[2023-03-03] MEDS: traMADol 50 MG Tab PO PRN ×4 (02:10→21:03)
[2023-03-03 06:32] LABS: BASOPHILS ABSOLUTE AUTO 0.1 x10-3/uL (0.0-0.1); BASOPHILS PERCENT AUTO 1.2 % (0.2-1.5); EOSINOPHILS ABSOLUTE AUTO 0.4 x10-3/uL (0.0-0.8); EOSINOPHILS PERCENT AUTO 5.6 % (0.6-8.1); HEMATOCRIT 31.6 % (34.2-48.2); HEMOGLOBIN 9.9 g/dL (11.4-15.5); LYMPHOCYTES PERCENT AUTO 31.2 % (18.4-52.1); MEAN CORPUSCULAR HEMOGLOBIN 25.4 pg (23.9-33.9); MEAN CORPUSCULAR HGB CONC 31.4 g/dL (31.9-34.8); MEAN CORPUSCULAR VOLUME 80.8 fL (76.7-100.5); MONOCYTES ABSOLUTE AUTO 0.8 x10-3/uL (0.3-1.0); MONOCYTES PERCENT AUTO 12.9 % (4.4-15.7); NEUTROPHILS ABSOLUTE AUTO 3.2 x10-3/uL (1.5-6.3); NEUTROPHILS PERCENT AUTO 49.1 % (30.8-76.2); PLATELET COUNT,PLT 398 x10(3)uL (151-488); RED BLOOD CELL COUNT 3.91 x10(6)uL (3.60-5.20); RED CELL DISTRIBUTION WIDTH 20.3 % (12.3-16.5); WHITE BLOOD CELL COUNT,WBC 6.5 x10-3/uL (3.0-10.3)
[2023-03-03 06:34] LABS: BLOOD UREA NITROGEN,BUN 9 mg/dL (7-18); BUN/CREATININE RATIO 11.3 (9-20); CALCIUM 8.8 mg/dL (8.6-10.2); CARBON DIOXIDE,CO2 29 mmol/L (21-32); CHLORIDE,CL 107 mmol/L (100-110); CREATININE 0.8 mg/dL (0.55-1.02); ESTIMATED GFR 76 mL/min (>60); GLUCOSE RANDOM 82 mg/dL (80-116); MAGNESIUM 1.9 mg/dL (1.8-2.5); POTASSIUM,K 3.7 mmol/L (3.5-5.3); SODIUM,NA 138 mmol/L (135-145)
[2023-03-03] MEDS: Apixaban 5 MG Tab PO SCH ×2 (08:21→20:59)
[2023-03-03] MEDS: Multivitamin Tab PO SCH (08:22)
[2023-03-03] MEDS: Metoprolol Tartrate 50 MG Tab PO SCH ×2 (08:22→21:00)
[2023-03-03] MEDS: Escitalopram 20 MG Tab PO SCH (08:22)
[2023-03-03] MEDS: Lidocaine 4% 1 each Patch TOP SCH (09:30)
[2023-03-03] MEDS: traZODone 100 MG Tab PO SCH (20:59)
[2023-03-04] MEDS: traMADol 50 MG Tab PO PRN (04:23)
[2023-03-04] MEDS ORDERED: Magnesium Oxide 400 MG Tab PO SCH (09:00)
[2023-03-04] MEDS: Metoprolol Tartrate 50 MG Tab PO SCH (09:02)
[2023-03-04] MEDS: Lidocaine 4% 1 each Patch TOP SCH (09:03)
[2023-03-04] MEDS: Multivitamin Tab PO SCH (09:03)
[2023-03-04] MEDS: Apixaban 5 MG Tab PO SCH (09:03)
[2023-03-04] MEDS: Escitalopram 20 MG Tab PO SCH (09:03)
[2023-03-04 09:45] VITALS: BP 131/88; PULSE 111
== END 2023-03-04 10:06 | disposition home or self-care (01) | DRG 310 ==
LOC: FB.ED 13:21 → FB.MS 17:17
PROVIDERS: ADMIT Family Medicine; ATTEND Family Medicine
DX: I48.91 Unspecified atrial fibrillation (principal); R26.89 Other abnormalities of gait and mobility; I50.9 Heart failure, unspecified; G89.29 Other chronic pain; Z66 Do not resuscitate; F41.1 Generalized anxiety disorder; K21.9 Gastro-esophageal reflux disease without esophagitis; G62.9 Polyneuropathy, unspecified; D64.9 Anemia, unspecified; I11.0 Hypertensive heart disease with heart failure; R62.7 Adult failure to thrive; M54.50 Low back pain, unspecified; M84.48XD Pathological fracture, other site, subsequent encounter for fracture with routine healing; I10 Essential (primary) hypertension; E66.9 Obesity, unspecified; Z88.1 Allergy status to other antibiotic agents; Z88.5 Allergy status to narcotic agent; Z98.49 Cataract extraction status, unspecified eye; Z86.711 Personal history of pulmonary embolism; Z90.89 Acquired absence of other organs; Z88.7 Allergy status to serum and vaccine; Z98.890 Other specified postprocedural states; Z88.6 Allergy status to analgesic agent; Z98.84 Bariatric surgery status; Z97.4 Presence of external hearing-aid; Z88.0 Allergy status to penicillin; W17.89XD Other fall from one level to another, subsequent encounter; Z88.2 Allergy status to sulfonamides; Z79.01 Long term (current) use of anticoagulants; Z79.899 Other long term (current) drug therapy; Z90.49 Acquired absence of other specified parts of digestive tract
CPT/HCPCS: 36410; 36415; 71045; 80048; 80053; 83735; 83880; 84484; 85025; 93005; 96365; 99222; 99232; 99238; 99285-25; A9270-GY; J3490; J7030

== ENCOUNTER 2023-03-29 21:39 | Emergency (ER) | payer MEDICARE ==
[2023-03-29] MEDS ORDERED: Acetaminophen/HYDROcodone 325-5 MG Tab PO ONE (21:40)
[2023-03-29 21:57] VITALS: BP 110/75; PULSE 95
== END 2023-03-29 22:30 | disposition home or self-care (01) ==
LOC: FB.ED 21:39
DX: F11.20 Opioid dependence, uncomplicated (principal); I10 Essential (primary) hypertension; W06.XXXA Fall from bed, initial encounter; Z79.01 Long term (current) use of anticoagulants; Z88.1 Allergy status to other antibiotic agents; Z88.2 Allergy status to sulfonamides; Z88.7 Allergy status to serum and vaccine; Z88.5 Allergy status to narcotic agent; Z88.0 Allergy status to penicillin; Z88.6 Allergy status to analgesic agent; Z79.899 Other long term (current) drug therapy
CPT/HCPCS: 99283; A9270-GY

== ENCOUNTER 2023-03-30 18:13 | Emergency (ER) | payer MEDICARE ==
[2023-03-30] MEDS ORDERED: traMADol 50 MG Tab PO ONE ×2 (18:14→18:52)
[2023-03-30 21:32] VITALS: BP 137/91; PULSE 111
== END 2023-03-30 21:05 | disposition home or self-care (01) ==
LOC: FB.ED 18:13
DX: S80.01XA Contusion of right knee, initial encounter (principal); I48.91 Unspecified atrial fibrillation; E66.9 Obesity, unspecified; Z68.28 Body mass index [BMI] 28.0-28.9, adult; Z79.01 Long term (current) use of anticoagulants; Z79.899 Other long term (current) drug therapy; Z88.1 Allergy status to other antibiotic agents; Z88.6 Allergy status to analgesic agent; Z88.7 Allergy status to serum and vaccine; Z88.5 Allergy status to narcotic agent; Z88.0 Allergy status to penicillin; Z88.2 Allergy status to sulfonamides; W18.30XA Fall on same level, unspecified, initial encounter
CPT/HCPCS: 73562-RT; 99283; A9270-GY

== ENCOUNTER 2023-05-13 01:33 | Emergency (ER) | payer MEDICARE ==
[2023-05-13 01:52] VITALS: BP 133/101; PULSE 120
== END 2023-05-13 03:18 | disposition home or self-care (01) ==
LOC: FB.ED 01:33
DX: S80.02XA Contusion of left knee, initial encounter (principal); I11.0 Hypertensive heart disease with heart failure; I50.9 Heart failure, unspecified; Z79.01 Long term (current) use of anticoagulants; Z88.1 Allergy status to other antibiotic agents; Z88.2 Allergy status to sulfonamides; Z88.7 Allergy status to serum and vaccine; Z88.0 Allergy status to penicillin; Z88.5 Allergy status to narcotic agent; Z88.6 Allergy status to analgesic agent; W01.0XXA Fall on same level from slipping, tripping and stumbling without subsequent striking against object, initial encounter; Z79.899 Other long term (current) drug therapy; Z90.49 Acquired absence of other specified parts of digestive tract
CPT/HCPCS: 73562-LT; 99283

== ENCOUNTER 2023-06-03 06:43 | Emergency (ER) | payer MEDICARE ==
[2023-06-03] MEDS: Metoprolol Tartrate 50 MG Tab PO ONE (08:17)
[2023-06-03 08:27] LABS: BASOPHILS PERCENT AUTO 0.6 % (0.2-1.5); EOSINOPHILS PERCENT AUTO 0.3 % (0.6-8.1); HEMATOCRIT 35.3 % (34.2-48.2); HEMOGLOBIN 11.4 g/dL (11.4-15.5); LYMPHOCYTES PERCENT AUTO 16.6 % (18.4-52.1); MEAN CORPUSCULAR HEMOGLOBIN 29.2 pg (23.9-33.9); MEAN CORPUSCULAR HGB CONC 32.3 g/dL (31.9-34.8); MEAN CORPUSCULAR VOLUME 90.3 fL (76.7-100.5); MEAN PLATELET VOLUME 8.3 fL (7.1-12.4); MONOCYTES ABSOLUTE AUTO 0.8 x10-3/uL (0.3-1.0); MONOCYTES PERCENT AUTO 13.4 % (4.4-15.7); NEUTROPHILS ABSOLUTE AUTO 4.3 x10-3/uL (1.5-6.3); NEUTROPHILS PERCENT AUTO 69.1 % (30.8-76.2); PLATELET COUNT,PLT 303 x10(3)uL (151-488); RED CELL DISTRIBUTION WIDTH 25.5 % (12.3-16.5); WHITE BLOOD CELL COUNT,WBC 6.3 x10-3/uL (3.0-10.3)
[2023-06-03 08:30] LABS: BLOOD UREA NITROGEN,BUN 9 mg/dL (7-18); BUN/CREATININE RATIO 12.9 (9-20); CALCIUM 8.8 mg/dL (8.6-10.2); CARBON DIOXIDE,CO2 31 mmol/L (21-32); CHLORIDE,CL 103 mmol/L (100-110); CREATININE 0.7 mg/dL (0.55-1.02); ESTIMATED GFR 89 mL/min (>60); GLUCOSE RANDOM 109 mg/dL (80-116); POTASSIUM,K 4.8 mmol/L (3.5-5.3); SODIUM,NA 138 mmol/L (135-145)
[2023-06-03 08:36] LABS: A/G RATIO 0.8; ALANINE AMINOTRANSFERASE,ALT 34 U/L (12-36); ALBUMIN 2.9 g/dL (3.2-4.6); ALKALINE PHOSPHATASE 105 IU/L (56-112); ASPARTATE AMNIOTRANSFERASE,AST 36 IU/L (5-25); BILIRUBIN TOTAL 0.8 mg/dL (0.1-1.3); MAGNESIUM 2.1 mg/dL (1.8-2.5); PROTEIN TOTAL,TP 6.6 g/dL (6.0-8.0)
[2023-06-03 08:46] LABS: RED BLOOD CELL COUNT 3.91 x10(6)uL (3.60-5.20)
[2023-06-03 08:50] LABS: BILIRUBIN,URINE NEGATIVE (NEGATIVE); GLUCOSE,URINE NORMAL (NORMAL); KETONES,URINE NEGATIVE (NEGATIVE); LEUKOCYTE ESTERASE,URINE NEGATIVE (NEGATIVE); NITRITE,URINE NEGATIVE (NEGATIVE); OCCULT BLOOD,URINE NEGATIVE (NEGATIVE); PROTEIN,URINE NEGATIVE (NEGATIVE); UROBILINOGEN,URINE NORMAL (NEGATIVE)
[2023-06-03 08:51] LABS: APPEARANCE,URINE CLEAR (CLEAR); BACTERIA,URINE FEW (NS); COLOR,URINE YELLOW (YELLOW); SQUAMOUS EPITHELIAL CELLS,UR OCCASIONAL (NS,R,O); WBC,URINE 0-5 (0-5)
[2023-06-03 09:43] VITALS: BP 147/97; PULSE 93
== END 2023-06-03 10:45 | disposition home or self-care (01) ==
LOC: FB.ED 06:43
DX: S30.0XXA Contusion of lower back and pelvis, initial encounter (principal); S00.03XA Contusion of scalp, initial encounter; I48.11 Longstanding persistent atrial fibrillation; I11.0 Hypertensive heart disease with heart failure; I50.9 Heart failure, unspecified; J44.9 Chronic obstructive pulmonary disease, unspecified; E66.9 Obesity, unspecified; Z88.0 Allergy status to penicillin; Z88.1 Allergy status to other antibiotic agents; Z88.2 Allergy status to sulfonamides; Z88.7 Allergy status to serum and vaccine; Z88.6 Allergy status to analgesic agent; Z88.8 Allergy status to other drugs, medicaments and biological substances; Z79.899 Other long term (current) drug therapy; Z90.49 Acquired absence of other specified parts of digestive tract; Z90.710 Acquired absence of both cervix and uterus; W19.XXXA Unspecified fall, initial encounter
CPT/HCPCS: 36415; 70450; 73502-LT; 80053; 81001; 83735; 85025; 93005; 99285; A9270-GY

== ENCOUNTER 2023-06-08 05:28 | Emergency (ER) | payer MEDICARE ==
[2023-06-08] MEDS: Diltiazem 25 MG/5 ML SDV IVPUSH ONE (06:03)
[2023-06-08] MEDS: Acetaminophen 325 MG Tab PO ONE (06:22)
[2023-06-08 06:28] LABS: BASOPHILS ABSOLUTE AUTO 0.1 x10-3/uL (0.0-0.1); BASOPHILS PERCENT AUTO 1.2 % (0.2-1.5); EOSINOPHILS PERCENT AUTO 0.7 % (0.6-8.1); HEMOGLOBIN 11.6 g/dL (11.4-15.5); LYMPHOCYTES ABSOLUTE AUTO 1.4 x10-3/uL (1.0-4.4); LYMPHOCYTES PERCENT AUTO 26.7 % (18.4-52.1); MEAN CORPUSCULAR HGB CONC 32.1 g/dL (31.9-34.8); MEAN CORPUSCULAR VOLUME 90.4 fL (76.7-100.5); MEAN PLATELET VOLUME 8.1 fL (7.1-12.4); MONOCYTES ABSOLUTE AUTO 0.7 x10-3/uL (0.3-1.0); MONOCYTES PERCENT AUTO 12.2 % (4.4-15.7); NEUTROPHILS ABSOLUTE AUTO 3.2 x10-3/uL (1.5-6.3); NEUTROPHILS PERCENT AUTO 59.2 % (30.8-76.2); PLATELET COUNT,PLT 319 x10(3)uL (151-488); RED CELL DISTRIBUTION WIDTH 25.2 % (12.3-16.5); WHITE BLOOD CELL COUNT,WBC 5.4 x10-3/uL (3.0-10.3)
[2023-06-08 06:30] LABS: BLOOD UREA NITROGEN,BUN 10 mg/dL (7-18); BUN/CREATININE RATIO 16.7 (9-20); CALCIUM 8.7 mg/dL (8.6-10.2); CARBON DIOXIDE,CO2 25 mmol/L (21-32); CHLORIDE,CL 103 mmol/L (100-110); CREATININE 0.6 mg/dL (0.55-1.02); ESTIMATED GFR 92 mL/min (>60); GLUCOSE RANDOM 83 mg/dL (80-116); POTASSIUM,K 3.7 mmol/L (3.5-5.3); SODIUM,NA 137 mmol/L (135-145)
[2023-06-08 06:36] LABS: RED BLOOD CELL COUNT 3.98 x10(6)uL (3.60-5.20)
[2023-06-08] MEDS: Metoprolol Tartrate 5 MG in Sodium Chloride 0.9% 50 ML IV ONE (06:48)
[2023-06-08] MEDS: Metoprolol Tartrate 50 MG Tab PO ONE (08:14)
[2023-06-08 09:16] VITALS: BP 133/85; PULSE 108
== END 2023-06-08 09:13 | disposition home or self-care (01) ==
LOC: FB.ED 05:28
DX: I48.19 Other persistent atrial fibrillation (principal); M25.552 Pain in left hip; J44.9 Chronic obstructive pulmonary disease, unspecified; I50.9 Heart failure, unspecified; K21.9 Gastro-esophageal reflux disease without esophagitis; E66.9 Obesity, unspecified; Z79.01 Long term (current) use of anticoagulants; Z79.899 Other long term (current) drug therapy; Z88.2 Allergy status to sulfonamides; Z88.1 Allergy status to other antibiotic agents; Z88.6 Allergy status to analgesic agent; Z88.5 Allergy status to narcotic agent; Z88.7 Allergy status to serum and vaccine; Z88.0 Allergy status to penicillin; Z98.84 Bariatric surgery status
CPT/HCPCS: 36415; 73700; 80048; 83880; 84484; 85025; 93005; 93010; 96365; 96375; 99284; 99285; A9270; J3490

== ENCOUNTER 2023-06-20 11:47 | Emergency (ER) | payer MEDICARE ==
[2023-06-20 13:15] LABS: HEMATOCRIT 41.1 % (34.2-48.2); HEMOGLOBIN 13.3 g/dL (11.4-15.5); MEAN CORPUSCULAR HEMOGLOBIN 29.6 pg (23.9-33.9); MEAN CORPUSCULAR HGB CONC 32.3 g/dL (31.9-34.8); MEAN CORPUSCULAR VOLUME 91.7 fL (76.7-100.5); MEAN PLATELET VOLUME 8.5 fL (7.1-12.4); PLATELET COUNT,PLT 284 x10(3)uL (151-488); RED BLOOD CELL COUNT 4.48 x10(6)uL (3.60-5.20); RED CELL DISTRIBUTION WIDTH 24.4 % (12.3-16.5); WHITE BLOOD CELL COUNT,WBC 3.7 x10-3/uL (3.0-10.3)
[2023-06-20 13:18] LABS: A/G RATIO 0.8; ALANINE AMINOTRANSFERASE,ALT 28 U/L (12-36); ALKALINE PHOSPHATASE 100 IU/L (56-112); ASPARTATE AMNIOTRANSFERASE,AST 48 IU/L (5-25); BILIRUBIN TOTAL 0.7 mg/dL (0.1-1.3); BLOOD UREA NITROGEN,BUN 8 mg/dL (7-18); CALCIUM 8.8 mg/dL (8.6-10.2); CARBON DIOXIDE,CO2 32 mmol/L (21-32); CHLORIDE,CL 92 mmol/L (100-110); CREATININE 0.8 mg/dL (0.55-1.02); ESTIMATED GFR 76 mL/min (>60); GLUCOSE RANDOM 94 mg/dL (80-116); SODIUM,NA 132 mmol/L (135-145)
[2023-06-20 13:30] LABS: POTASSIUM,K 2.6 mmol/L (3.5-5.3)
[2023-06-20 13:35] LABS: ACETAMINOPHEN < 2 ug/mL (<2); SALICYLATE < 2.8 mg/dL (<2.8)
[2023-06-20 13:39] LABS: BILIRUBIN,URINE NEGATIVE (NEGATIVE); GLUCOSE,URINE NORMAL (NORMAL); KETONES,URINE NEGATIVE (NEGATIVE); LEUKOCYTE ESTERASE,URINE NEGATIVE (NEGATIVE); NITRITE,URINE NEGATIVE (NEGATIVE); OCCULT BLOOD,URINE NEGATIVE (NEGATIVE); PROTEIN,URINE NEGATIVE (NEGATIVE); UROBILINOGEN,URINE 1 mg/dL (NEGATIVE)
[2023-06-20] MEDS: Potassium Chloride 20 MEQ Tab.ER PO ONE ×4 (13:52→17:44)
[2023-06-20 13:53] LABS: GIANT PLATELETS FEW; LYMPHOCYTES PERCENT MAN 13 % (13-37); MONOCYTES PERCENT MAN 22 % (4-12); SEG NEUTROPHILS PERCENT MAN 65 % (46-82)
[2023-06-20 13:54] LABS: ANISOCYTOSIS FEW; POIKILOCYTOSIS FEW; TARGET CELLS FEW
[2023-06-20 13:55] LABS: AMPHETAMINES SCREEN, URINE NEGATIVE (NEGATIVE); METHAMPHETAMINE SCREEN, URINE NEGATIVE (NEGATIVE); THC SCREEN,URINE NEGATIVE (NEGATIVE)
[2023-06-20 13:56] LABS: BARBITURATE SCREEN,URINE NEGATIVE (NEGATIVE); BENZODIAZEPINES SCREEN,URINE POSITIVE (NEGATIVE); BUPRENORPHINE SCREEN,URINE NEGATIVE (NEGATIVE); METHADONE SCREEN, URINE NEGATIVE (NEGATIVE); OXYCODONE SCREEN,URINE NEGATIVE (NEGATIVE)
[2023-06-20 14:00] LABS: APPEARANCE,URINE CLEAR (CLEAR); BACTERIA,URINE FEW (NS); COLOR,URINE YELLOW (YELLOW); SQUAMOUS EPITHELIAL CELLS,UR OCCASIONAL (NS,R,O); WBC,URINE 0-5 (0-5)
[2023-06-20] MEDS: Potassium Chloride 20 MEQ Tab.ER ONE (15:31)
[2023-06-20] MEDS ORDERED: Potassium Chloride 20 MEQ Tab.ER PO ONE (16:29)
[2023-06-20] MEDS: Ibuprofen 800 MG Tab PO PRN (18:17)
[2023-06-20] MEDS: Acetaminophen 500 MG Tab PO PRN (18:17)
[2023-06-20] MEDS: OLANZapine 10 MG Vial IM ONE (22:40)
[2023-06-20] MEDS: Prochlorperazine 10 MG/2 ML SDV IVPUSH PRN (22:40)
[2023-06-21 10:05] LABS: BLOOD UREA NITROGEN,BUN 11 mg/dL (7-18); BUN/CREATININE RATIO 12.2 (9-20); CALCIUM 9.4 mg/dL (8.6-10.2); CARBON DIOXIDE,CO2 30 mmol/L (21-32); CHLORIDE,CL 100 mmol/L (100-110); CREATININE 0.9 mg/dL (0.55-1.02); ESTIMATED GFR 66 mL/min (>60); GLUCOSE RANDOM 96 mg/dL (80-116); POTASSIUM,K 4.3 mmol/L (3.5-5.3); SODIUM,NA 138 mmol/L (135-145)
[2023-06-21] MEDS: Sodium Chloride 0.9% 1,000 ML IV ONE (10:29)
[2023-06-21] MEDS: Sodium Chloride 0.9% 10 ML Syringe FLUSH PRN (10:30)
[2023-06-21] MEDS: Apixaban 5 MG Tab PO SCH (11:00)
[2023-06-21] MEDS: Metoprolol Tartrate 25 MG Tab PO SCH (11:00)
[2023-06-21 15:58] VITALS: BP 114/90; PULSE 76
== END 2023-06-21 16:00 | disposition other institution (70) ==
LOC: FB.ED 11:47
DX: F19.10 Other psychoactive substance abuse, uncomplicated (principal); I11.0 Hypertensive heart disease with heart failure; I50.9 Heart failure, unspecified; J44.9 Chronic obstructive pulmonary disease, unspecified; Z90.49 Acquired absence of other specified parts of digestive tract; Z90.710 Acquired absence of both cervix and uterus; Z79.899 Other long term (current) drug therapy; Z88.0 Allergy status to penicillin; Z88.2 Allergy status to sulfonamides; Z88.8 Allergy status to other drugs, medicaments and biological substances; Z88.1 Allergy status to other antibiotic agents
CPT/HCPCS: 36415; 80048; 80053; 80143; 80179; 80307; 81001; 84443; 84484; 85025; 93005; 93010; 99284; 99285; A9270; J0780; J2405; J3490; J7030